=== PATIENT | male | born 1930 | race Caucasian/White ===

== ENCOUNTER 2017-06-10 09:34 | Emergency (ER) | payer OTHER ==
--- NOTE | 2017-06-10 09:50 | PDOC ---
History of Present Illness - General Chief Complaint: Wound Stated Complaint: BLEEDING FROM SCROTU Time Seen by Provider: 06/10/17 09:48 History Source: Patient - History of Present Illness Initial Comments: 06/10/17 11:34 CC: Acute onset of scrotal lesion/bleed Patient is an 86 y.o. male with a PMH of CAD, CVA (with residual weakness) and AFib (on Dagbigitran) who presents to our facility today c/o bleeding from a lesion on his scrotum. Patient states he noticed the bleeding when he woke up this morning and he tried to apply pressure using a hand towel, however he continued to bleed prompting his visit to our ED. Patient states he believes he scratched his scrotum earlier this week on the bedpost when getting out of bed in the middle of the night. Patient states he was evaluated by his PCP for a similar bleed earlier this year and also experienced excessive bleeding from his R arm following an injury last month. Patient denies any shortness of breath, lightheadedness or chest pain. Surgical: L hip replacement, Hernia repair Social: (-) cigarettes, (-) alcohol, (-) marijuana/cocaine/heroin PCP: Dr Christ LEYVA Past History - Past Medical History Allergies/Adverse Reactions: Allergies Allergy/AdvReac Type Severity Reaction Status Date / Time No Known Allergies Allergy Verified 06/10/17 09:35 Home Medications: Ambulatory Orders Calcium Carbonate [Calcium] 500 mg PO BID tablet 11/06/14 Multivitamin [Daily Vitamin] 1 each PO DAILY tablet 11/06/14 Metolazone 2.5 mg PO PRN tablet 11/14/16 Carvedilol [Coreg] 3.125 mg PO BID tablet 04/26/17 [place]-3/Dha/Epa/Lut/Zeaxanthin [[facility] Softgel] 1 each PO 2 CAPS BID capsule 04/26/17 Anemia: No Asthma: No Cancer: Yes (Skin) Cardiac Disorders: Yes (atrial fibrillation) CVA: Yes ([id number] weakness) COPD: No CHF: Yes Dementia: No Diabetes: No GI Disorders: No Disorders: No HTN: No Hypercholesterolemia: Yes Liver Disease: No Seizures: No Thyroid Disease: Yes - Surgical History Abdominal Surgery: Yes (Colon Resection) Appendectomy: No Cardiac Surgery: No Cholecystectomy: No GI Surgery: Yes (large intestine) Lung Surgery: Yes (Thorocentesis 10/2014) Neurologic Surgery: No Orthopedic Surgery: Yes (MAMIE HIP REPLACEMENT) - Psycho/Social/Smoking Cessation Hx Anxiety: No Suicidal Ideation: No Smoking History: Never smoked Have you smoked in the past 12 months: No Hx Alcohol Use: No Drug/Substance Use Hx: No Substance Use Type: None Hx Substance Use Treatment: No Review of Systems - Review of Systems Constitutional: No: Chills, Diaphoresis HEENTM: No: Blurred Vision, Hearing Loss Respiratory: No: Orthopnea, Shortness of Breath, Stridor, Wheezing, Hemoptysis Cardiac (ROS): No: Chest Pain, Edema, Irregular Heart Rate, Lightheadedness, Palpitations, Syncope ABD/GI: No: Constipated, Nausea, Vomiting, Abdominal cramping : No: Burning, Dysuria Psychiatric: No: Anxiety, Depression All Other Systems: Reviewed and Negative *Physical Exam - Vital Signs Last Vital Signs Temp Pulse Resp BP Pulse Ox 97.8 F 18 0/0 06/10/17 09:35 06/10/17 09:35 06/10/17 09:35 - Physical Exam General Appearance: Yes: Nourished, Appropriately Dressed HEENT: positive: EOMI, ZAID Neck: positive: Trachea midline, Supple Respiratory/Chest: positive: Lungs Clear, Normal Breath Sounds Cardiovascular: positive: Regular Rhythm, Regular Rate, S1, S2 Gastrointestinal/Abdominal: positive: Normal Bowel Sounds, Soft Male Genitalia: positive: other (pinpoint active scrotal bleed on L scrotum) Musculoskeletal: positive: Normal Inspection Extremity: positive: Normal Capillary Refill, Normal Inspection Neurologic: positive: product development specialist II-XII NML intact, Fully Oriented, Alert Medical Decision Making - Medical Decision Making 06/10/17 11:42 Patient is an 86 y.o. male who presents with active bleeding from a pinpoint lesion on his scrotum. At presentation patient was hemodynamically stable and denied any SiSx of acute blood loss including shortness of breath, tachycardia or lightheadedness. Pressure was applied to patient's scrotum and bleeding generally resolved, surgicel was applied to the wound and patient was given instructions that surgicel would likely fall off during the course of his normal activity. Patient was given his a.m. dose of Dagbigitran and observed for 45 minutes without any resumption of active bleeding from the lesion. Patient was discharged home with instruction to f/u with his PCP, Dr. Polo, next week. *DC/Admit/Observation/Transfer Diagnosis at time of Disposition: Scrotal blister - Discharge Dispostion Disposition: HOME Condition at time of disposition: Fair - Patient Instructions Additional Instructions: You were evaluated in the Emergency Department today for a pinpoint bleed from your scrotum. Surgicel was applied and your bleeding resolved. You can bathe and return to normal activities. Please return to the ED should you experience repeat bleeding, chest pain, shortness of breath or severe discomfort. Please see your PCP next week and inform them of your visit to our facility.
[2017-06-10 09:51] VITALS: TEMP 97.8; BMI 25.0
[2017-06-10 09:55] VITALS: BP 139/77; PULSE 98
[2017-06-10] MEDS ORDERED: DABIGATRAN ETEXILATE MESYLATE 150 MG CAPSULE PO ONE (10:32)
--- NOTE | 2017-06-10 10:45 | PDOC ---
Attending Attestation - Resident Resident Name: Joy Ram - ED Attending Attestation I have performed the following: I have examined & evaluated the patient, The case was reviewed & discussed with the resident, I agree w/resident's findings & plan, Exceptions are as noted - HPI HPI: 06/10/17 10:36 86-year-old male with past medical history of congestive heart failure, stroke, atrial fibrillation on pradaxa presents with left scrotal bleeding. Patient had actually scratched his left testicle and had a pinpoint bleed but couldn't control so came to the ED. Denies any lightheadedness, chest tightness or shortness of breath. He has been applying pressure and came to the ED. - Physicial Exam PE: 06/10/17 10:45 GENERAL: Awake, alert, and fully oriented, in no acute distress. HEAD: No signs of trauma EYES: PERRLA, EOMI, sclera anicteric, conjunctiva clear ENT: Auricles normal inspection, hearing grossly normal, nares patent, oropharynx clear without exudates. NECK: Normal ROM, supple, no lymphadenopathy, JVD, or masses LUNGS: Breath sounds equal, clear to auscultation bilaterally. No wheezes, and no crackles HEART: Regular rate and rhythm, normal S1 and S2, no murmurs, rubs or gallops ABDOMEN: Soft, nontender, normoactive bowel sounds. No guarding, no rebound. No masses : No scrotal tenderness. No active bleeding at this time (after pressure applied by patient and by resident DR. Joy Ram). EXTREMITIES: Normal range of motion, no edema. No clubbing or cyanosis. No cords, erythema, or tenderness NEUROLOGICAL: Cranial nerves II through XII grossly intact. Normal speech, normal gait SKIN: Warm, Dry, normal turgor, no rashes or lesions noted. - Medical Decision Making 06/10/17 10:53 Vital Signs Temp Pulse Resp BP Pulse Ox 97.8 F 98 H 18 139/77 100 06/10/17 09:35 06/10/17 09:35 06/10/17 09:35 06/10/17 09:35 06/10/17 09:35 Patient is not bleeding. We'll apply Surgicel and gauze and watch the patient. We will give the patient's Pradaxa and observe, whicht he should continue given his history of atrial fibrillation. We'll observe and if bleeding stops, we'll discharge home with PMD follow-up. 06/10/17 11:33 PT has been observed and no further bleeding noted. Will d/c
== END 2017-06-10 11:34 | disposition home or self-care (01) ==
LOC: FER 09:34
DX: S30.823A Blister (nonthermal) of scrotum and testes, initial encounter (principal); X58.XXXA Exposure to other specified factors, initial encounter; Y93.9 Activity, unspecified; I50.9 Heart failure, unspecified; Z86.73 Personal history of transient ischemic attack (TIA), and cerebral infarction without residual deficits; Z85.828 Personal history of other malignant neoplasm of skin; E78.00 Pure hypercholesterolemia, unspecified; Z96.643 Presence of artificial hip joint, bilateral; I48.91 Unspecified atrial fibrillation
CPT/HCPCS: 99282-25

== ENCOUNTER 2017-08-31 21:50 | Inpatient (IN) | payer OTHER ==
--- NOTE | 2017-08-31 21:59 | PDOC ---
History of Present Illness - General Chief Complaint: Weakness Stated Complaint: WEAKNESS, FELL, SOB Time Seen by Provider: 08/31/17 21:59 - History of Present Illness Initial Comments: 08/31/17 22:51 This 86-year-old man with a history of CHF/HTN/ Afib presents with several day history of progressive weakness and dyspnea on exertion. Patient states that he fell (lost his balance) 5 days ago, striking right hip area. Since then, he has had some pain in the local area radiating to his lower back. He has been able to ambulate with some difficulty using a walker since the injury. However , he has noted fatigue, cough (occasionally productive of scant sputum) and shortness of breath with exertion. There has been no fever/chills, chest pain, palpitations. The patient monitors his weight and has noted an increase of "a few pounds" over the last few days. He denies dyspnea at rest. He also has had increase lower leg edema (right greater than left which is the usual pattern when he has ankle edema). He states that he has not been taking Zaroxolyn/ Lasix as prescribed over the last few days because he had things to do outside and he did not want to have increased urination while not at home. He has been started on iron supplementation in the last week by Dr. Polo after being noted to be anemic. Also, patient was treated for bronchitis approximately a month ago with Augmentin followed by azithromycin Z-Davey Past History - Past Medical History Allergies/Adverse Reactions: Allergies Allergy/AdvReac Type Severity Reaction Status Date / Time No Known Allergies Allergy Verified 06/10/17 09:35 Home Medications: Ambulatory Orders Calcium Carbonate [Calcium] 500 mg PO BID tablet 11/06/14 Multivitamin [Daily Vitamin] 1 each PO DAILY tablet 11/06/14 Metolazone 2.5 mg PO PRN tablet 11/14/16 Carvedilol [Coreg] 3.125 mg PO BID tablet 04/26/17 [place]-3/Dha/Epa/Lut/Zeaxanthin [[facility] Softgel] 1 each PO 2 CAPS BID capsule 04/26/17 Ferrous Sulfate 325 mg PO DAILY 08/31/17 Anemia: No Asthma: No Cancer: Yes (Skin) Cardiac Disorders: Yes (atrial fibrillation) CVA: Yes ([id number] weakness) COPD: No CHF: Yes Dementia: No Diabetes: No GI Disorders: No Disorders: No HTN: No Hypercholesterolemia: Yes Liver Disease: No Seizures: No Thyroid Disease: Yes - Surgical History Abdominal Surgery: Yes (Colon Resection) Appendectomy: No Cardiac Surgery: No Cholecystectomy: No GI Surgery: Yes (large intestine) Lung Surgery: Yes (Thorocentesis 10/2014) Neurologic Surgery: No Orthopedic Surgery: Yes (MAMIE HIP REPLACEMENT) - Suicide/Smoking/Psychosocial Hx Smoking History: Never smoked Have you smoked in the past 12 months: No Hx Alcohol Use: No Drug/Substance Use Hx: No Substance Use Type: None Hx Substance Use Treatment: No Review of Systems - Review of Systems Able to Perform ROS?: Yes Comments:: 12 point review of systems is negative except for what is noted in the history of present illness *Physical Exam - Physical Exam Comments: GENERAL: Elderly man, speaking in full sentences, in mild respiratory distress Vital signs as noted HEAD: Normal with no signs of trauma. EYES: PERRLA, EOMI, sclera anicteric, conjunctiva clear. ENT: Ears normal, nares patent, oropharynx clear without exudates. Moist mucous membranes. NECK: Normal range of motion, supple without lymphadenopathy, JVD, or masses. LUNGS: Decreased breath sounds at right base; expiratory crackles bilaterally third of the way up; no wheezes; no rhonchi HEART:Regular rate and rhythm, normal S1 and S2 without murmur, rub or gallop. ABDOMEN:.normal bowel sounds No guarding,tenderness or rebound.No masses No distention. EXTREMITIES: Normal range of motion, 2+ pitting edema to knee on right/1+ pitting edema to knee on the left; 3 cm x 8 cm ecchymotic, nontender, nonedematous area of the proximal right thigh; full range of motion right hip No tenderness of the anterior right hip NEUROLOGICAL: Cranial nerves II through XII grossly intact. Normal speech. No focal neurological deficits. MUSCULOSKELETAL: Back non-tender to palpation, no CVA tenderness SKIN: Warm, Dry, normal turgor, no rashes or lesions noted. 12-lead electrocardiogram is performed and interpreted by me. This shows atrial fibrillation 106 bpm; there is some widening of the QRS complex as compared to previous tracing dated 12/31/14, otherwise there is no significant change Portable chest x-ray performed: Preliminary interpretation shows small right- sided pleural effusion unchanged from previous chest x-ray of 08/10/17. No other pleural effusion noted. Increased vascular markings bilaterally without infiltrates evident. ED Treatment Course - LABORATORY CBC & Chemistry Diagram: 08/31/17 22:35 08/31/17 22:35 *DC/Admit/Observation/Transfer Diagnosis at time of Disposition: CHF (congestive heart failure) Qualifiers: Congestive heart failure type: systolic Congestive heart failure chronicity: acute on chronic Qualified Code(s): I50.23 - Acute on chronic systolic ( congestive) heart failure - Discharge Dispostion Condition at time of disposition: Fair Admit: Yes - Referrals - Patient Instructions - Post Discharge Activity
[2017-08-31 22:44] LABS: BASOPHIL 1.7 % (0-2.0); EOSINOPHIL 0.4 % (0-4.5); MCH 30.3 pg (25.7-33.7); MCHC 32.5 g/dl (32.0-35.9); MEAN CELL VOLUME 93.2 fl (80-96); MEAN PLT VOLUME 8.1 fl (7.5-11.1); NEUTROPHILS 87.1 % (42.8-82.8); PLATELET COUNT 178 K/MM3 (134-434); RDW 20.9 % (11.9-15.9); WHITE BLOOD COUNT 8.5 K/mm3 (4.0-10.8)
[2017-08-31 22:53] LABS: INR 2.88 (0.82-1.09); PROTHROMBIN TIME (PATIENT) 31.6 SEC (10.2-13.0)
[2017-08-31 23:08] LABS: ALK PHOS 67 U/L (32-92); ANION GAP 8 (8-16); BILIRUBIN,TOTAL 1.7 mg/dl (0.2-1.0); CO2 32 mmol/L (22-28); CPK 296 IU/L (39-308); GLUCOSE,RANDOM 117 mg/dl (74-106); SGOT/AST 64 U/L (10-42); SGPT/ALT 27 U/L (10-40)
[2017-08-31 23:29] LABS: TROPONIN I (DFP) 0.05 ng/ml (0.03-0.50)
[2017-08-31] MEDS ORDERED: FUROSEMIDE 40 MG/4 ML INJECTABLE VIAL IVPUSH ONE (23:54)
[2017-08-31] MEDS ORDERED: FUROSEMIDE 40 MG/4 ML INJECTABLE VIAL ONE (23:55)
[2017-09-01] LABS: ALBUMIN 3.8 g/dl (3.5-5.0); CREATININE 1.7 mg/dl (0.6-1.3); TOT PROT 7.5 g/dl (6.4-8.3)
[2017-09-01] MEDS ORDERED: ACETAMINOPHEN 325 MG TABLET (FP) PO PRN (00:39)
--- NOTE | 2017-09-01 00:39 | HP ---
CHIEF COMPLAINT: weakness and decreased exercise tolerance PCP: Christ Quezada: Lisette HISTORY OF PRESENT ILLNESS: This is an 86-year-old man with past medical history of A. fib, hypertension, CHF who presents to the emergency department with 2 weeks of generalized weakness and decreased exercise tolerance. Patient states that he started feeling generally fatigued with generalized weakness and dry cough approximately 2 weeks ago. He saw his primary doctor who has treated him for bronchitis with both Augmentin and a Z-Davey. Symptoms did not resolve. The patient states she has not been taking his Lasix or Zaroxolyn for the past week due to the fact that he has had many errands to run and did not want to have to void well in public. He states he is only able to walk approximately 20 feet before becoming increasingly short of breath. Patient is unable to walk up inclines or upstairs. Patient denies feeling bloated. He denies any fevers, chills, headaches, dizziness, chest pain, abdominal pain. ER course was notable for: (1) A-fib (2) Elevated BNP (3) GILMER (4) Hyponatremia Recent Travel: denies PAST MEDICAL HISTORY: see HPI PAST SURGICAL HISTORY: see HPI Social History: Smoking: denies Alcohol: denies Drugs: denies Family History: Allergies No Known Allergies Allergy (Verified 06/10/17 09:35) HOME MEDICATIONS: Home Medications Medication Instructions Recorded Calcium Carbonate [Calcium] 500 mg PO BID tablet 11/06/14 Multivitamin [Daily Vitamin] 1 each PO DAILY tablet 11/06/14 Metolazone 2.5 mg PO PRN tablet 11/14/16 Carvedilol [Coreg] 3.125 mg PO BID tablet 04/26/17 [place]-3/Dha/Epa/Lut/Zeaxanthin 1 each PO 2 CAPS BID capsule 04/26/17 [[facility] Softgel] Ferrous Sulfate 325 mg PO DAILY 08/31/17 REVIEW OF SYSTEMS CONSTITUTIONAL: Present- generalized weakness Absent: fever, chills, diaphoresis, malaise, loss of appetite, weight change HEENT: Absent: rhinorrhea, nasal congestion, throat pain, throat swelling, difficulty swallowing, mouth swelling, ear pain, eye pain, visual changes CARDIOVASCULAR: Present- irregular heart rate Absent: chest pain, syncope, palpitations, lightheadedness, peripheral edema RESPIRATORY: Present- dyspnea with exertion, PND, orthopnea Absent: cough, shortness of breath, wheezing, stridor, hemoptysis GASTROINTESTINAL: Absent: abdominal pain, abdominal distension, nausea, vomiting, diarrhea, constipation, melena, hematochezia GENITOURINARY: Absent: dysuria, frequency, urgency, hesitancy, hematuria, flank pain, genital pain MUSCULOSKELETAL: Absent: myalgia, arthralgia, joint swelling, back pain, neck pain SKIN: Absent: rash, itching, pallor HEMATOLOGIC/IMMUNOLOGIC: Absent: easy bleeding, easy bruising, lymphadenopathy, frequent infections ENDOCRINE: Absent: unexplained weight gain, unexplained weight loss, heat intolerance, cold intolerance NEUROLOGIC: Absent: headache, focal weakness or paresthesias, dizziness, unsteady gait, seizure, mental status changes, bladder or bowel incontinence PSYCHIATRIC: Absent: anxiety, depression, suicidal or homicidal ideation, hallucinations. PHYSICAL EXAMINATION Vital Signs - 24 hr 08/31/17 08/31/17 21:57 22:50 Temperature 98.0 F Pulse Rate 135 H Pulse Rate [ 108 H Apical] Respiratory 26 H 22 Rate Blood Pressure 125/65 Blood Pressure 104/64 [Arm] O2 Sat by Pulse 95 99 Oximetry (%) GENERAL: Awake, alert, and fully oriented, in no acute distress. HEAD: Normal with no signs of trauma. EYES: Pupils equal, round and reactive to light, extraocular movements intact, sclera anicteric, conjunctiva clear. No lid lag. EARS, NOSE, THROAT: Ears normal, nares patent, oropharynx clear without exudates. Moist mucous membranes. NECK: Normal range of motion, supple without lymphadenopathy, or masses. 10cm JVD. LUNGS: Breath sounds equal, clear to auscultation bilaterally. No wheezes. Bibasilar crackles. No accessory muscle use. HEART: Irregular rate and rhythm, normal S1 and S2 without murmur, rub or gallop. ABDOMEN: Soft, nontender, mildly distended, normoactive bowel sounds, no guarding, no rebound, no masses. No hepatomegaly or splenomegaly. MUSCULOSKELETAL: Normal range of motion at all joints. No bony deformities or tenderness. No CVA tenderness. SHIELDS x4 with 5/5 strength. UPPER EXTREMITIES: 2+ pulses, warm, well-perfused. No cyanosis. No clubbing. +2 peripheral edema with right>left. LOWER EXTREMITIES: 2+ pulses, warm, well-perfused. No calf tenderness. +2 peripheral edema with right>left. NEUROLOGICAL: Cranial nerves II-XII intact. Normal speech. Normal gait. PSYCHIATRIC: Cooperative. Good eye contact. Appropriate mood and affect. SKIN: Warm, dry, normal turgor, no rashes or lesions noted, normal capillary refill. Laboratory Results - last 24 hr 08/31/17 08/31/17 08/31/17 22:35 22:35 22:35 WBC 8.5 RBC 2.87 L Hgb 8.7 L Hct 26.7 L MCV 93.2 MCH 30.3 MCHC 32.5 RDW 20.9 H D Plt Count 178 MPV 8.1 Neutrophils % 87.1 H D Lymphocytes % 5.9 L D Monocytes % 4.9 Eosinophils % 0.4 Basophils % 1.7 PT with INR 31.6 H INR 2.88 H D Sodium 132 L Potassium 4.4 Chloride 92 L Carbon Dioxide 32 H Anion Gap 8 BUN 48 H D Creatinine 1.7 H D Creat Clearance w eGFR 38.41 Random Glucose 117 H D Calcium 9.0 Total Bilirubin 1.7 H D AST 64 H D ALT 27 D Alkaline Phosphatase 67 Creatine Kinase 296 Creatine Kinase Index 1.1 CK-MB (CK-2) 3.288 Troponin I Cancelled B-Natriuretic Peptide Total Protein 7.5 Albumin 3.8 08/31/17 22:35 WBC RBC Hgb Hct MCV MCH MCHC RDW Plt Count MPV Neutrophils % Lymphocytes % Monocytes % Eosinophils % Basophils % PT with INR INR Sodium Potassium Chloride Carbon Dioxide Anion Gap BUN Creatinine Creat Clearance w eGFR Random Glucose Calcium Total Bilirubin AST ALT Alkaline Phosphatase Creatine Kinase Creatine Kinase Index CK-MB (CK-2) Troponin I B-Natriuretic Peptide 1755.05 H Total Protein Albumin ASSESSMENT/PLAN: A: 86yo man with questionable compliance with medications who has had decreased exercise tolerance for 2 weeks P: CHF - Lasix 80mg po qAM and 60mg qPM - monitor K+ and kidney function - daily weights - Strict I&O's - Change Metolazone to standing - tele - consider echo- last in computer was 11/20/14 - Cards Consult Afib - Chads2 score- 3 - Coreg - Pradaxa - tele HTN - Coreg - Lasix Hyponatremia - trend Na GILMER - trend BUN/Cr Hypothyroidism - Synthroid F/E/N - Low Na diet - trend lytes PPX - pradaxa Dispo- Requires observation of acute medical conditions. Visit type - Emergency Visit Emergency Visit: Yes ED Registration Date: 09/01/17 Care time: The patient presented to the Emergency Department on the above date and was hospitalized for further evaluation of their emergent condition. - New Patient This patient is new to me today: Yes Date on this admission: 09/01/17 - Critical Care Critical Care patient: No
[2017-09-01] MEDS ORDERED: [UNRECOGNIZED DRUG - OTHER] PO SCH (00:45)
[2017-09-01] MEDS ORDERED: EPA PO SCH (00:45)
[2017-09-01] MEDS ORDERED: DHA PO SCH (00:45)
[2017-09-01] MEDS ORDERED: ZEAXANTHIN PO SCH (00:45)
[2017-09-01] MEDS ORDERED: LUT PO SCH (00:45)
[2017-09-01] MEDS ORDERED: OMEGA PO SCH (00:45)
[2017-09-01] MEDS: FUROSEMIDE 40 MG TABLET (FP) PO SCH ×2 (00:55→09:29)
[2017-09-01 03:15] VITALS: BMI 25.1
[2017-09-01] MEDS: LEVOTHYROXINE NA 100 MCG TABLET (FP) PO SCH (06:36)
[2017-09-01 08:25] LABS: PH,URINE 7.5 (4.5-8); URINE APPEARANCE Clear; URINE BILIRUBIN Negative (NEGATIVE); URINE GLUCOSE (UA) Negative (NEGATIVE); URINE KETONE Negative (NEGATIVE); URINE LEUK ESTERASE Negative (NEGATIVE); URINE NITRITE Negative (NEGATIVE); URINE PROTEIN Negative (NEGATIVE); URINE UROBILINOGEN 0.2 (0.2-1.0)
[2017-09-01 08:29] LABS: URINE BLOOD 1+ (NEGATIVE); URINE COLOR YELLOW
[2017-09-01 08:39] LABS: INR 2.68 (0.82-1.09); PROTHROMBIN TIME (PATIENT) 29.4 SEC (10.2-13.0)
[2017-09-01 09:02] LABS: BASOPHIL 0.3 % (0-2.0); EOSINOPHIL 0.4 % (0-4.5); MCH 30.1 pg (25.7-33.7); MCHC 31.8 g/dl (32.0-35.9); MEAN CELL VOLUME 94.9 fl (80-96); MEAN PLT VOLUME 8.9 fl (7.5-11.1); NEUTROPHILS 87.1 % (42.8-82.8); PLATELET COUNT 152 K/MM3 (134-434); RDW 20.9 % (11.9-15.9); WHITE BLOOD COUNT 7.3 K/mm3 (4.0-10.8)
[2017-09-01 09:03] LABS: URINE BACTERIA MODERATE /hpf (NEGATIVE); URINE WBC 0-3 (0-2)
[2017-09-01] MEDS ORDERED: PT OWN MED DRAWER 7, Y5N ONE (09:10)
[2017-09-01 09:29] LABS: ALBUMIN 3.2 g/dl (3.5-5.0); ALK PHOS 66 U/L (32-92); ANION GAP 10 (8-16); BILIRUBIN,TOTAL 1.6 mg/dl (0.2-1.0); CALCIUM 8.3 mg/dl (8.4-10.2); CO2 30 mmol/L (22-28); CREATININE 1.5 mg/dl (0.6-1.3); GLUCOSE,RANDOM 98 mg/dl (74-106); SGOT/AST 58 U/L (10-42); SGPT/ALT 23 U/L (10-40); TOT PROT 6.5 g/dl (6.4-8.3)
[2017-09-01] MEDS: DABIGATRAN ETEXILATE MESYLATE 150 MG CAPSULE PO SCH ×2 (09:29→21:40)
[2017-09-01] MEDS: CARVEDILOL 3.125 MG TABLET (FP) PO SCH ×2 (09:29→21:40)
[2017-09-01] MEDS: CALCIUM (OYSTER SHELL) 500 MG TABLET (FP) PO SCH ×2 (09:29→21:40)
[2017-09-01] MEDS: FERROUS SO4 325 MG TABLET (FP) PO SCH (09:29)
[2017-09-01] MEDS: MULTIVITAMINS (DAILY MVI) TABLET (FP) PO SCH (09:29)
[2017-09-01] MEDS ORDERED: METOLAZONE 2.5 MG TABLET (FP) PO SCH (09:30)
--- NOTE | 2017-09-01 12:59 | EKG ---
Test Reason : Blood Pressure : / mmHG Vent. Rate : 106 BPM Atrial Rate : 144 BPM P-R Int : 000 ms QRS Dur : 132 ms QT Int : 354 ms P-R-T Axes : 000 -14 -55 degrees QTc Int : 470 ms ATRIAL FIBRILLATION WITH RAPID VENTRICULAR RESPONSE RIGHT BUNDLE BRANCH BLOCK NONSPECIFIC ST AND T WAVE ABNORMALITY in leads II, III, aVF ABNORMAL ECG WHEN COMPARED WITH ECG OF 19-NOV-2014 17:43, RIGHT BUNDLE BRANCH BLOCK is now present ST depression and T wave inversion is noted in V3-5 Confirmed by JABIER COX MD ([id number]) on 09/01/2017 12:59:20 PM Referred By: DR HERNANDEZ Confirmed By:JABIER COX MD
--- NOTE | 2017-09-01 13:24 | CONSULT ---
Consult - text type - Consultation Consultation Note: CARDIOLOGY ASKED BY DR. Hyatt TO SEE PT. 86 YO MAN 09/01/17 WEAKNESS/FATIGUE. PT SEEN, EXAMINED. X RAYS, ECG ECHOCARDIOGRAM, PRIOR RECORDS REVIEWED. WORKING DX: GENERALIZED FATIGUE /WEAKNESS DUE TO AGING, HIP PAIN, RECENT UPPER RESPIRATORY INFECTION. . DOUBT ACUTE CHF. CHRONIC RIGHT PLEURAL EFFUSION, PROBABLY TRANSUDATIVE. NO SIGNIFICANT EDEMA WEIGHT NOT SIGNIFICANTLY INCREASED AND CHEST X RAY NOT IMPRESSIVE FOR PULMONARY VENOUS CONGESTION LOW NORMAL LEFT VENTRICULAR SYSTOLIC FUNCTION EJECTION FRACTION 50% ECHOCARDIOGRAM 57 % 10/22 GATED SESTA MIBI STUDY. NO EVIDENCE OF AN ACUTE MYOCARDIAL INFARCTION/ISCHEMIA. REC: OK TO DISCONTINUE TELEMETRY. REHAB/PHYSICAL THERAPY. CONTINUE ORAL DIURETICS. NO FURTHER CARDIAC TESTING REQUIRED AT THIS TIME. CARDIOLOGY OUT PATIENT FOLLOW UP DIRECTED BY IM. THANKS. FULL NOTE DICTATED. FAMILY KEPT INFORMED. WILL FOLLOW
--- NOTE | 2017-09-01 14:52 | CONS ---
DATE OF CONSULTATION: 09/01/2017 CARDIOLOGY CONSULTATION REQUESTING PHYSICIAN: PATIENT PROFILE: The patient is an 86-year-old man admitted on September 01, 2017, because of weakness, fatigue and inability to walk. HISTORY OF PRESENT ILLNESS: The patient has a prior history of chronic atrial fibrillation, right greater than left-sided congestive heart failure and a right pleural effusion. There is history of a myocardial infarction. He has undergone coronary arteriographic studies in the past. The angiographic reports are not presently available. A Lexiscan sestamibi in October 2013 showed normal perfusion. Left ventricular ejection fraction was 59%. A October 2016 echocardiogram showed a left ventricular ejection fraction of 50%, with calcification of the mitral valve annulus and mild mitral insufficiency. Mild aortic insufficiency was also noted. He has known severe pulmonary hypertension, with a pulmonary artery systolic pressure of 56 mmHg, and right ventricular hypokinesis and enlargement. The right atrium was massively enlarged, and the left atrium was severely enlarged at 5.7 cm. He previously had undergone a right thoracentesis about 7 years ago. 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 He has had increasing difficulty walking and is admitted now with complaints of profound weakness and inability to walk. He had recently been treated for an upper respiratory infection with antibiotics through Dr. Polo. On presentation, he was thought to have congestive heart failure and a cardiology consultation was requested. The patient presently denies any symptoms of chest pain, shortness of breath, or orthopnea. Ankle edema is minimal. MEDICATIONS: The present medications include Lipitor 10 mg per day, carvedilol 3.125 mg b.i.d., Pradaxa 150 mg b.i.d., iron supplement, Lasix 80/60 mg, Synthroid 100 mcg per day, Zaroxolyn 2.5 mg per day, vitamin supplementation. PAST MEDICAL HISTORY: Atrial fibrillation, CVA, hyperlipidemia, chronic lower extremity edema, pericarditis, gastroesophageal reflux, prostatic hypertrophy, osteoarthritis, macular degeneration, rectal bleeding, duodenal ulcer in September 2016, skin cancer. PAST SURGICAL HISTORY: Subtotal colectomy for volvulus, total hip replacement, prostatectomy and vasectomy in 1979, hernia repair, cataract extractions. SOCIAL HISTORY: He lives at home with his . There is no history of smoking or alcohol abuse. REVIEW OF SYSTEMS: General: No fever or chills. Pulmonary: No hemoptysis. Neurological: Gait disorder. Hematological: Chronic anemia. PHYSICAL EXAMINATION: General: The patient appears awake and alert, in no distress. Vitals: The weight is 168 pounds. The blood pressure is 128/60. Temperature afebrile. Pulse is 90. Respiratory rate is 19 per minute. Neck: There is no neck vein distention at 90 degrees. Respiratory: There are marked decreased breath sounds at the right base with dullness to percussion. There are no rales. There is no wheezing. Cardiac: The heart sounds are normal, although irregular. There is a 2/6 systolic murmur at the left sternal border, best heard with breath holding. The heart sounds are irregular. No diastolic sounds. No gallop is audible. Extremities: There is trace edema to the left lower extremity. There is no significant edema on the right. The feet are warm and well perfused. Neurologic: There is no focal neurological deficit. DATABASE: The electrocardiogram demonstrates atrial fibrillation with a rapid ventricular response, low voltage limb leads, intraventricular conduction delay, nonspecific ST and T-wave changes, right bundle branch block. The chest x-ray was reviewed. It is an AP portable film. The heart size cannot be accurately assessed due to the technique of the film. There is a right pleural effusion. There is no distinct infiltrate. There is no gross pulmonary venous congestion. Laboratory studies of note include a white blood cell count of 7.3, hematocrit 24%; platelet count 152,000. INR 2.6. Serum sodium 135, BUN 42, creatinine 1.5. BNP level 1755. Urinalysis shows 1+ blood, negative glucose, negative protein. IMPRESSION: The working diagnosis is generalized fatigue, weakness secondary to a combination of aging, anemia and recent upper respiratory infection. I doubt the presence of acute congestive heart failure. The right pleural effusion, by physical examination and chest x-ray, is chronic and does not appear to be severe. I suspect it is transudative in nature. There is no significant edema. The weight is not significantly increased and the chest x-ray is not impressive for pulmonary venous congestion. Left ventricular systolic function is low normal, as reflected by a left ventricular ejection fraction of 50% on the October 2016 echocardiogram and 57% on the October 2013 gated sestamibi study. There is no evidence to suggest an acute myocardial ischemic event. Of concern is the significant anemia with hematocrit of 24% and elevation of the INR level in the absence of the administration of vitamin K antagonist therapy. The coagulopathy with increased INR and administration of Pradaxa will increase the risk of bleeding. RECOMMENDATIONS: I have recommended the followin. It is safe to discontinue telemetry. 2. Rehabilitation and physical therapy. 3. Continue oral diuretics. 4. No further cardiac testing is required at this time. 5. Hematological evaluation with regards to the anemia. 6. Discontinue Pradaxa. 7. Cardiology outpatient follow-up and workup and therapy as directed by Internal Medicine. The diagnoses, prognosis, risks and options were explained at length to the patient and family, and all questions answered. Thank you for allowing me to take part in the care of this pleasant patient. VELMA SONG M.D. LOUSIA/[id number] cc: MD Dr. Rony CALDERA MD
--- NOTE | 2017-09-01 21:41 | PN ---
Physical Exam: SUBJECTIVE: Patient seen and examined at bedside. Still experiencing generalized weakness and lightheadedness with positional change. Patient describes a fall 6 days ago when getting out of bed at night to go to the bathroom. He states he lost his balance and fell to the floor. His helped him up and he went back to bed, he was not on the floor for a prolonged period of time. He did not hit his head, denies LOC. He did not seek medical attention. Patient reports his generalized weakness and SOB have gotten worse since the fall. OBJECTIVE: Vital Signs Period Temp Pulse Resp BP Sys/Servin Pulse Ox Last 24 Hr 97.5 F-98.2 F 61-135 17-26 91-128/49-70 95-100 GENERAL: The patient is awake, alert, and fully oriented, in no acute distress. LUNGS: CTA HEART: Irregular, S1, S2 without murmur, rub or gallop. ABDOMEN: Soft, nontender, nondistended, normoactive bowel sounds, no guarding, no rebound EXTREMITIES: 2+ pulses, warm, well-perfused, no edema. NEUROLOGICAL: Cranial nerves II through XII grossly intact. Normal speech, gait not observed. PSYCH: Normal mood, normal affect. MUSCULOSKELETAL/SKIN: Very large area of ecchymosis, extending from right upper back under the scapula, down the right flank, across the lower abdomen, and into the penis Laboratory Results - last 24 hr 08/31/17 08/31/17 08/31/17 22:35 22:35 22:35 WBC 8.5 RBC 2.87 L Hgb 8.7 L Hct 26.7 L MCV 93.2 MCH 30.3 MCHC 32.5 RDW 20.9 H D Plt Count 178 MPV 8.1 Neutrophils % 87.1 H D Lymphocytes % 5.9 L D Monocytes % 4.9 Eosinophils % 0.4 Basophils % 1.7 PT with INR 31.6 H INR 2.88 H D Sodium 132 L Potassium 4.4 Chloride 92 L Carbon Dioxide 32 H Anion Gap 8 BUN 48 H D Creatinine 1.7 H D Creat Clearance w eGFR 38.41 Random Glucose 117 H D Calcium 9.0 Total Bilirubin 1.7 H D AST 64 H D ALT 27 D Alkaline Phosphatase 67 Creatine Kinase 296 Creatine Kinase Index 1.1 CK-MB (CK-2) 3.288 Troponin I Cancelled B-Natriuretic Peptide Total Protein 7.5 Albumin 3.8 Urine Color Urine Appearance Urine pH Ur Specific [place] Urine Protein Urine Glucose (UA) Urine Ketones Urine Blood Urine Nitrite Urine Bilirubin Urine Urobilinogen Ur Leukocyte Esterase Urine RBC Urine WBC Ur Epithelial Cells Urine Bacteria 08/31/17 09/01/17 09/01/17 22:35 06:20 07:15 WBC 7.3 RBC 2.62 L Hgb 7.9 L Hct 24.8 L MCV 94.9 MCH 30.1 MCHC 31.8 L RDW 20.9 H Plt Count 152 MPV 8.9 Neutrophils % 87.1 H Lymphocytes % 7.9 L D Monocytes % 4.3 Eosinophils % 0.4 Basophils % 0.3 PT with INR INR Sodium Potassium Chloride Carbon Dioxide Anion Gap BUN Creatinine Creat Clearance w eGFR Random Glucose Calcium Total Bilirubin AST ALT Alkaline Phosphatase Creatine Kinase Creatine Kinase Index CK-MB (CK-2) Troponin I B-Natriuretic Peptide 1755.05 H Total Protein Albumin Urine Color Yellow Urine Appearance Clear Urine pH 7.5 Ur Specific [place] 1.015 Urine Protein Negative Urine Glucose (UA) Negative Urine Ketones Negative Urine Blood 1+ H Urine Nitrite Negative Urine Bilirubin Negative Urine Urobilinogen 0.2 Ur Leukocyte Esterase Negative Urine RBC 5-10 Urine WBC 0-3 Ur Epithelial Cells Few Urine Bacteria Moderate 09/01/17 09/01/17 07:15 07:15 WBC RBC Hgb Hct MCV MCH MCHC RDW Plt Count MPV Neutrophils % Lymphocytes % Monocytes % Eosinophils % Basophils % PT with INR 29.4 H INR 2.68 H Sodium 135 L Potassium 3.4 L D Chloride 95 L Carbon Dioxide 30 H Anion Gap 10 BUN 42 H Creatinine 1.5 H Creat Clearance w eGFR 44.37 Random Glucose 98 Calcium 8.3 L Total Bilirubin 1.6 H AST 58 H ALT 23 Alkaline Phosphatase 66 Creatine Kinase Creatine Kinase Index CK-MB (CK-2) Troponin I B-Natriuretic Peptide Total Protein 6.5 Albumin 3.2 L Urine Color Urine Appearance Urine pH Ur Specific [place] Urine Protein Urine Glucose (UA) Urine Ketones Urine Blood Urine Nitrite Urine Bilirubin Urine Urobilinogen Ur Leukocyte Esterase Urine RBC Urine WBC Ur Epithelial Cells Urine Bacteria Active Medications Generic Name Dose Route Start Last Admin Trade Name Freq PRN Reason Stop Dose Admin Acetaminophen 650 mg 09/01/17 00:39 Tylenol - PO Q4H PRN FEVER OR PAIN Atorvastatin Calcium 10 mg 09/02/17 10:00 Lipitor - PO TuSa@1000 NEIL Calcium Carbonate 500 mg 09/01/17 10:00 09/01/17 21:40 Os-Thomas 500mg - PO 500 mg BID NEIL Administration Carvedilol 3.125 mg 09/01/17 10:00 09/01/17 21:40 Coreg - PO Not Given BID NEIL Dabigatran 150 mg 09/01/17 10:00 09/01/17 21:40 Pradaxa - PO 150 mg BID NEIL Administration Ferrous Sulfate 325 mg 09/01/17 10:00 09/01/17 09:29 Feosol - PO 325 mg DAILY NEIL Administration Furosemide 80 mg 09/01/17 00:45 09/01/17 09:29 Lasix - PO 80 mg DAILY NEIL Administration Furosemide 60 mg 09/01/17 22:00 09/01/17 21:41 Lasix - PO Not Given HS NEIL Levothyroxine Sodium 100 mcg 09/01/17 07:00 09/01/17 06:36 Synthroid - PO 100 mcg AM NEIL Administration Metolazone 2.5 mg 09/01/17 09:30 09/01/17 09:29 Zaroxolyn - PO 2.5 mg DAILY@0930 NEIL Administration Multivitamins/Minerals/Vitamin C 1 tab 09/01/17 10:00 09/01/17 09:29 Tab-A-Vit - PO 1 tab DAILY NEIL Administration ASSESSMENT/PLAN 86 year-old male with a PMH significant for HTN, HLD, afib on [place], biventricular systolic heart failure, severe TR, CVA (2010), right pleural effusion s/p thoracentesis (2014), and hypothyroidism. Ecchymosis s/p fall Symptomatic anemia likely secondary to acute blood loss --large ecchymotic area that extends from right scapula, right flank, across RLQ into penis --CT w/o contrast to assess bleed/size of hematoma pending --baseline Hgb 11; 8.6 on admission, now 7.9 in a low-volume, hemoconcentrated state --type and screen, transfuse 2U PRBC --occult stool ordered Biventricular systolic heart failure Orthostasis --orthostatic, hypotensive, and rising bicarb likely secondary to low volume state/contraction alkalosis --hold diuretics --cardiology following GILMER --Cr 1.7 on admission, now 1.5; baseline 1.1 --hold diuretics --strict I&Os, daily weights Afib on [place] --CHADS score 6, moderate to high risk of stroke; HAS BLED score 9, high risk of bleeding --relative risk of bleeding appears to outweigh relative risk of stroke at the present time, especially in view of symptomatic anemia and supratherapeutic INR of 2.6; hold dag[place]rib[place], no anticoagulation for now --rate well-controlled, continue carvedilol Hypokalemia --repleted Hypertension --presently hypotensive; hold diuretics Hyponatremia, resolved Hypothyroidism --continue levothyroxine F/E/N Fluids: PO intake adequate Electrolytes: replete as indicated Nutrition: low sodium diet DVT prophylaxis: SCDs; hold chemical prophylaxis for now due to bleeding issues Physical therapy evaluation Dispo: converted to inpatient status because of blood loss anemia requiring transfusion and resultant need to hold anticoagulation in this patient with afib and history of CVA; patient requires inpatient care to monitor closely for signs of thromboembolism, worsening anemia, hypotension, and GILMER. Full code. F/E/N - Low Na diet - trend lytes PPX - pradaxa Dispo- Requires observation of acute medical conditions. Visit type - Emergency Visit Emergency Visit: Yes ED Registration Date: 09/01/17 Care time: The patient presented to the Emergency Department on the above date and was hospitalized for further evaluation of their emergent condition. - New Patient This patient is new to me today: Yes Date on this admission: 09/01/17 - Critical Care Critical Care patient: No
[2017-09-01] MEDS ORDERED: FUROSEMIDE 20 MG TABLET (FP) PO SCH (22:00)
[2017-09-02] MEDS: MUPIROCIN 2% TOPICAL OINTMENT 22 GM TUBE TP SCH ×3 (00:06→22:39)
[2017-09-02] MEDS ORDERED: FUROSEMIDE 40 MG/4 ML INJECTABLE VIAL ONE (07:00)
[2017-09-02] MEDS ORDERED: FUROSEMIDE 40 MG/4 ML INJECTABLE VIAL IVPUSH ONE (07:02)
--- NOTE | 2017-09-02 07:02 | HOSP ---
Subjective - Review of Symptoms Events since last encounter: Patient transfused one unit PRBC overnight, just finished. Diffuse wheezing on exam. Will give Lasix IV 40mg x 1. Physical Examination Vital Signs: Vital Signs Temperature 98.4 F 09/02/17 06:37 Pulse Rate 98 H 09/02/17 06:37 Respiratory Rate 18 09/02/17 06:37 Blood Pressure 115/60 09/02/17 06:37 O2 Sat by Pulse Oximetry (%) 98 09/02/17 05:35 Labs: CBC, BMP 09/01/17 07:15 09/01/17 07:15
[2017-09-02] MEDS: LEVOTHYROXINE NA 100 MCG TABLET (FP) PO SCH (07:06)
[2017-09-02 08:27] LABS: BASOPHIL 0.5 % (0-2.0); EOSINOPHIL 2.5 % (0-4.5); MCH 30.4 pg (25.7-33.7); MCHC 32.6 g/dl (32.0-35.9); MEAN CELL VOLUME 93.2 fl (80-96); MEAN PLT VOLUME 8.2 fl (7.5-11.1); NEUTROPHILS 77.7 % (42.8-82.8); PLATELET COUNT 172 K/MM3 (134-434); RDW 20.3 % (11.9-15.9); WHITE BLOOD COUNT 4.8 K/mm3 (4.0-10.8)
[2017-09-02 08:28] LABS: INR 2.18 (0.82-1.09)
[2017-09-02 08:52] LABS: ALBUMIN 3.3 g/dl (3.5-5.0); ALK PHOS 62 U/L (32-92); ANION GAP 10 (8-16); BILIRUBIN,TOTAL 1.7 mg/dl (0.2-1.0); CALCIUM 8.6 mg/dl (8.4-10.2); CO2 32 mmol/L (22-28); CREATININE 1.3 mg/dl (0.6-1.3); GLUCOSE,RANDOM 89 mg/dl (74-106); MAGNESIUM 2.2 mg/dL (1.8-2.4); PHOSPHOROUS 3.6 mg/dl (2.5-4.6); SGOT/AST 47 U/L (10-42); SGPT/ALT 23 U/L (10-40); TOT PROT 6.7 g/dl (6.4-8.3)
[2017-09-02] MEDS ORDERED: POTASSIUM CHLORIDE TABS 20 MEQ TABLET.ER (FP) PO ONE (09:14)
[2017-09-02] MEDS ORDERED: PT OWN MED DRAWER 7, Y5N ONE (09:35)
[2017-09-02] MEDS ORDERED: ATORVASTATIN CA 10 MG TABLET (FP) PO SCH (10:00)
[2017-09-02] MEDS: CALCIUM (OYSTER SHELL) 500 MG TABLET (FP) PO SCH ×2 (10:05→21:44)
[2017-09-02] MEDS: KCL 10 MEQ IVPB 10 MEQ/100 ML INFUS.BAG IVPB SCH ×5 (10:05→19:30)
[2017-09-02] MEDS: FERROUS SO4 325 MG TABLET (FP) PO SCH (10:05)
[2017-09-02] MEDS: CARVEDILOL 3.125 MG TABLET (FP) PO SCH (10:05)
[2017-09-02] MEDS: MULTIVITAMINS (DAILY MVI) TABLET (FP) PO SCH (10:05)
--- NOTE | 2017-09-02 11:07 | PN ---
Physical Exam: SUBJECTIVE: Patient seen and examined. OBJECTIVE: Vital Signs Period Temp Pulse Resp BP Sys/Servin Pulse Ox Last 24 Hr 97.6 F-98.4 F 77-115 17-20 81-115/49-65 95-98 GENERAL: The patient is awake, alert, and fully oriented, in no acute distress. HEAD: Normal with no signs of trauma. EYES: PERRL, extraocular movements intact, sclera anicteric, conjunctiva clear. No ptosis. LUNGS: Breath diminished to right base. No wheezes, no crackles, no accessory muscle use. HEART: Regular rate and rhythm, S1, S2 without murmur, rub or gallop. ABDOMEN: Soft, nontender, mildly distended, normoactive bowel sounds, no guarding, no rebound, no hepatosplenomegaly, no masses. Tympany noted on percussion. Ecchymosis noted to right upper back/flank/RLQ. RECTAL: Prostate smooth and normal sized. Hard stool noted in vault. EXTREMITIES: 2+ pulses, warm, well-perfused, +2 pedal edema with R>L. NEUROLOGICAL: Cranial nerves II through XII grossly intact. Normal speech, gait not observed. PSYCH: Normal mood, normal affect. SKIN: Warm, dry, normal turgor. Ecchymosis noted to right upper back/flank/RLQ. Skin tear noted to right groin. Laboratory Results - last 24 hr 09/01/17 09/01/17 09/02/17 22:15 22:15 08:00 WBC 4.8 D RBC 2.88 L Hgb 8.8 L D Hct 26.9 L MCV 93.2 MCH 30.4 MCHC 32.6 RDW 20.3 H Plt Count 172 MPV 8.2 Neutrophils % 77.7 Lymphocytes % 13.5 D Monocytes % 5.8 Eosinophils % 2.5 D Basophils % 0.5 PT with INR INR Sodium Potassium Chloride Carbon Dioxide Anion Gap BUN Creatinine Creat Clearance w eGFR Random Glucose Calcium Phosphorus Magnesium Total Bilirubin AST ALT Alkaline Phosphatase Total Protein Albumin Blood Type A POSITIVE Cancelled Antibody Screen Negative Cancelled Crossmatch See Detail Spec Expiration Date Cancelled 09/02/17 09/02/17 08:00 08:00 WBC RBC Hgb Hct MCV MCH MCHC RDW Plt Count MPV Neutrophils % Lymphocytes % Monocytes % Eosinophils % Basophils % PT with INR 24.0 H INR 2.18 H Sodium 136 Potassium 2.4 L* D Chloride 94 L Carbon Dioxide 32 H Anion Gap 10 BUN 39 H Creatinine 1.3 Creat Clearance w eGFR 52.34 Random Glucose 89 Calcium 8.6 Phosphorus 3.6 Magnesium 2.2 Total Bilirubin 1.7 H AST 47 H ALT 23 Alkaline Phosphatase 62 Total Protein 6.7 Albumin 3.3 L Blood Type Antibody Screen Crossmatch Spec Expiration Date Active Medications Generic Name Dose Route Start Last Admin Trade Name Freq PRN Reason Stop Dose Admin Acetaminophen 650 mg 09/01/17 00:39 Tylenol - PO Q4H PRN FEVER OR PAIN Atorvastatin Calcium 10 mg 09/02/17 10:00 09/02/17 10:10 Lipitor - PO 10 mg TuSa@1000 NEIL Administration Calcium Carbonate 500 mg 09/01/17 10:00 09/02/17 10:05 Os-Thomas 500mg - PO 500 mg BID NEIL Administration Carvedilol 3.125 mg 09/01/17 10:00 09/02/17 10:05 Coreg - PO 3.125 mg BID NEIL Administration Ferrous Sulfate 325 mg 09/01/17 10:00 09/02/17 10:05 Feosol - PO 325 mg DAILY NEIL Administration Potassium Chloride 10 meq in 100 mls @ 100 mls/hr 09/02/17 09:15 09/02/17 10: 05 Potassium Chloride 10 Meq Premix Ivpb - IVPB 09/02/17 11:14 100 mls/hr Q60M NEIL Administration Levothyroxine Sodium 100 mcg 09/01/17 07:00 09/02/17 07:06 Synthroid - PO 100 mcg AM NEIL Administration Multivitamins/Minerals/Vitamin C 1 tab 09/01/17 10:00 09/02/17 10:05 Tab-A-Vit - PO 1 tab DAILY NEIL Administration Mupirocin 1 applic 09/01/17 23:45 09/02/17 10:06 Bactroban 2% Ointment - TP 1 applic BID NEIL Administration Imaging:EXAM#: TYPE/EXAM: RESULT: [id number] CT/ABDOMEN PELVIS CT W/O CONTR [id number] CT/CHEST CT WITHOUT CONTRAST HISTORY PROVIDED: Ecchymosis of the right shoulder and flank TECHNIQUE: Sequential axial images were obtained from the thoracic inlet through the symphysis pubis The study is markedly limited without the use of any contrast material. Evaluation of the lung recinos demonstrates a large right pleural effusion with atelectasis of the right lower lobe. There is a small left pleural effusion with mild degree of patchy consolidation within the left lower lobe. The upper lung recinos are largely clear. The heart is enlarged. No mediastinal masses or fluid collections identified. No significant lymphadenopathy is noted. The right shoulder joint is intact with no evidence of fracture or dislocation. There is no evidence of rib fracture or acute bony pathology. There is no evidence of soft tissue masses or fluid collections about the shoulder joint. The liver, spleen, pancreas, adrenal glands and kidneys demonstrate no gross abnormalities. There is an oval mass within the mid abdomen just anterior to the pancreas. The mass measures 3.7 x 3.3 x 3.3 cm. Its etiology is uncertain. It could represent an unopacified bowel loop, however, more ominous pathology cannot be excluded. A follow-up study with both oral and intravenous contrast administration would be necessary to further evaluate this mass. There is no evidence of pneumoperitoneum, bowel obstruction or intra-abdominal abscess. There are edematous changes within the subcutaneous tissues about the chest, abdomen and pelvis. There is a right flank fluid collection adjacent to the right iliac bone. The collection most likely represents a hematoma and measures approximately 4.0 x 6.4 x 3.6 cm. Examination of the pelvis demonstrates markedly limited due to extensive artifact from the patient' s bilateral total hip replacements. There is no gross evidence of pelvic masses, fluid collections or lymphadenopathy. There is no evidence of fracture or acute bony pathology. IMPRESSION: 1. Large right pleural effusion with lower lobe atelectasis. 2. Small left pleural effusion with left basilar consolidation. 3. No evidence of right shoulder fracture or periarticular hematoma. 4. No gross evidence of intra-abdominal organ injury. 5. Mid mesenteric mass of uncertain etiology. Clinical correlation and follow-up recommended. 6. Right flank fluid collection suspicious for a hematoma. 7. No evidence of fracture or acute bony pathology. Please see above discussion. Reported By: Ta Wallace MD [id number] ASSESSMENT/PLAN: A: 86 year-old male with a PMH significant for HTN, HLD, afib on [place], biventricular systolic heart failure, severe TR, CVA (2010), right pleural effusion s/p thoracentesis (2015), and hypothyroidism. P: Symptomatic anemia likely secondary to acute blood loss - large ecchymotic area that extends from right scapula, right flank, across RLQ into penis - CT as above - baseline Hgb 11; 8.6 on admission, now 7.9-> 8.8 s/p transfusion - 1U PRBC transfused with hgb->8.8 post transfusion - trend CBC - repeat CBC @2pm - occult stool collected->brown stool Biventricular systolic heart failure - normotensive - rising bicarb likely secondary to low volume state/contraction alkalosis - hold diuretics - cardiology following GILMER - Cr 1.7->1.5->1.3; baseline 1.1 - continue to hold diuretics - strict I&Os, daily weights Afib on [place] - CHADS score 6, moderate to high risk of stroke; HAS BLED score 9, high risk of bleeding - relative risk of bleeding appears to outweigh relative risk of stroke at the present time, especially in view of symptomatic anemia - hold Pradaxa - rate well-controlled - continue Coreg Pleural Effusion - Asymptomatic - PNA vs Hemothorax vs Metastatic disease vs CHF - will start abx if febrile or leukocytosis - consider pleuracentesis if becomes symptomatic Supratherapuetic INR - ?metastatic disease- mass on CT scan and pleural effusion Hypokalemia - likely from Lasix use - hold Lasix - repleted - trend Hypertension - presently hypotensive - hold diuretics Hyponatremia, resolved Hypothyroidism - continue levothyroxine F/E/N - Low Na diet - trend electrolyes PPX - SCD - hold chemical prophylaxis 2/2 bleeding Physical therapy evaluation Dispo- Patient requires inpatient care to monitor closely for signs of worsening anemia, hypotension, and GILMER. Code Status- Full code.
[2017-09-02 14:39] LABS: EOSINOPHIL 2.1 % (0-4.5)
[2017-09-02 14:41] LABS: BASOPHIL 0.3 % (0-2.0); MCH 31.3 pg (25.7-33.7); MCHC 33.2 g/dl (32.0-35.9); MEAN CELL VOLUME 94.4 fl (80-96); MEAN PLT VOLUME 8.2 fl (7.5-11.1); NEUTROPHILS 77.7 % (42.8-82.8); PLATELET COUNT 190 K/MM3 (134-434); RDW 20.2 % (11.9-15.9); WHITE BLOOD COUNT 5.2 K/mm3 (4.0-10.8)
[2017-09-02] MEDS ORDERED: POTASSIUM CHLORIDE ORAL LIQUID 20 MEQ/15 ML PO ONE (16:08)
--- NOTE | 2017-09-02 20:05 | HOSP ---
Subjective - Review of Symptoms Events since last encounter: Hospitalist Encounter Notified by the primary RN that the patient is in Afib with RVR 120's A/P Dx: Afib with RVR, Electrolyte Imbalance EKG stat BP stat Will order Metoprolol RN to call Cardiology- who placed orders Spoke with Joy Blancas, evening nursing traffic sign supervisor Will transfer to [facility] Telemetry if the rate does not control Per RN, the patient is asymptomatic Will continue to monitor Physical Examination Vital Signs: Vital Signs Temperature 97.5 F L 09/02/17 14:29 Pulse Rate 128 H 09/02/17 14:29 Respiratory Rate 18 09/02/17 14:29 Blood Pressure 108/63 09/02/17 14:29 O2 Sat by Pulse Oximetry (%) 99 09/02/17 14:29 Labs: CBC, BMP 09/02/17 14:00 09/02/17 15:15 Critical Care Total Critical Care Time (in minutes): 31 Critical Care Statement: The care of this patient involved high complexity decision making to prevent further life threatening deterioration of the patient 's condition and/or to evaluate & treat vital organ system(s) failure or risk of failure.
[2017-09-02] MEDS ORDERED: METOPROLOL TARTRATE 5 MG/5 ML VIAL IVPUSH ONE (20:45)
[2017-09-02] MEDS: CARVEDILOL 6.25 MG TABLET (FP) PO SCH (21:44)
[2017-09-02] MEDS: POTASSIUM CHLORIDE ORAL LIQUID 20 MEQ/15 ML PO SCH (23:41)
[2017-09-03] MEDS: SENNOSIDES/DOCUSATE COMBO (SENNA PLUS) TABLET (UD) PO SCH ×3 (06:00→21:28)
[2017-09-03] MEDS: LEVOTHYROXINE NA 100 MCG TABLET (FP) PO SCH (06:01)
--- NOTE | 2017-09-03 08:06 | CONSULT ---
Consult - text type - Consultation Consultation Note: CARDIOLOGY INCREASED HEART RATE 120/MINUTE LED TO INCREASED COREG DOSE WITH DECREASE IN HEART RATE 10 ABOUT 100 IN (CHRONIC) ATRIAL FIBRILLATION. NO CHEST PAIN. NO PALPITATIONS. NO DYSPNEA. MEDICATIONS REVIEWED. LYING FLAT NO DISTRESS. BP 110 SYSTOLIC HEART RATE 100/MINUTE. AFEBRILE RESP 19/MINUTE. DECREASED BREATH SOUNDS RIGHT POSTERIOR LUNG FIELD. FAINT EXPIRATORY WHEEZE, IRREGULAR HEART RHYTHM. 1/6 SYSTOLIC MURMUR. NO GALLOP. NO EDEMA. MARKED ECCHYMOSIS RIGHT FLANK/PELVIC AREA. FEET WARM, WELL PERFUSED. ECG 09/02/17 ATRIAL FIB RAPID VENTRICULAR RESPONSE. RIGHT BUNDLE BRANCH BLOCK LEFT AXIS . MILD ST DEPRESSIONS LATERAL PRECORDIAL LEADS. HCT 26% INR >2. INCEASED TOTAL BILIRUBIN OTHER LFT'S UNREMARKABLE IMPRESSION. ATRIAL FIBRILLATION WITH INCREASED VENTRICULAR RESPONSE IN PART DUE TO ANEMIA. BLOOD LOSS ANEMIA SECONDARY TO TRAUMA. ETIOLOGY COAGULOPATHY UNCERTAIN. DOUBT DUE TO LIVER DYSFUNCTION SECONDARY TO ATROVASTATIN. PROBABLE MODERATE-LARGE TRANSUDATIVE RIGHT PLEURAL EFFUSION. ELEVATED INR MAKES THORACENTESIS PROBLEMATIC. HEMODYNAMICALLY STABLE PLEASE SEE 09/01/17 DICTATED REPORT. REC: DISCONTINUE LIPITOR. LANOXIN 0.5 MG IV AND 0.125 MG DAILY ORALLY. TRANSFUSE PACKED RED BLOOD CELLS WITH SIMULTANEOUS ADMINISTRATION OF I V LASIX. CONSIDER HEMATOLOGY CONSULT. DIRECTED BY INTERNAL MEDICINE
[2017-09-03] MEDS ORDERED: DIGOXIN 0.5 MG/2 ML AMPUL IVPUSH ONE (08:29)
--- NOTE | 2017-09-03 08:37 | PN ---
Physical Exam: SUBJECTIVE: Patient seen and examined Pt reports sob,denies cp,palpitations, dizziness or weakness. OBJECTIVE: Vital Signs Period Temp Pulse Resp BP Sys/Servin Pulse Ox Last 24 Hr 97.3 F-98.1 F 107-128 18-20 101-114/57-65 95-100 GENERAL: The patient is awake, alert, and fully oriented, in no acute distress. HEAD: Normal with no signs of trauma. EYES: PERRL, extraocular movements intact, sclera anicteric, conjunctiva clear. No ptosis. ENT: Ears normal, nares patent, oropharynx clear without exudates, moist mucous membranes. NECK: Trachea midline, full range of motion, supple. LUNGS: Breath sounds equal, clear to auscultation bilaterally, no wheezes, + crackles, no accessory muscle use. HEART: Irregular, systolic murmur no rub or gallop. ABDOMEN: Soft, nontender, nondistended, normoactive bowel sounds, no guarding, no rebound, no hepatosplenomegaly, no masses. EXTREMITIES: 2+ pulses, warm, well-perfused, no edema. NEUROLOGICAL: Cranial nerves II through XII grossly intact. Normal speech, gait not observed. PSYCH: Normal mood, normal affect. SKIN: Warm, dry, normal turgor, no rashes or lesions noted, large ecchymosis on Rt flank down to Rt hip and lateral thigh. Laboratory Results - last 24 hr 09/02/17 09/02/17 09/02/17 08:00 08:00 08:00 WBC 4.8 D RBC 2.88 L Hgb 8.8 L D Hct 26.9 L MCV 93.2 MCH 30.4 MCHC 32.6 RDW 20.3 H Plt Count 172 MPV 8.2 Neutrophils % 77.7 Lymphocytes % 13.5 D Monocytes % 5.8 Eosinophils % 2.5 D Basophils % 0.5 PT with INR 24.0 H INR 2.18 H Sodium 136 Potassium 2.4 L* D Chloride 94 L Carbon Dioxide 32 H Anion Gap 10 BUN 39 H Creatinine 1.3 Creat Clearance w eGFR 52.34 Random Glucose 89 Calcium 8.6 Phosphorus 3.6 Magnesium 2.2 Total Bilirubin 1.7 H AST 47 H ALT 23 Alkaline Phosphatase 62 Total Protein 6.7 Albumin 3.3 L Stool Occult Blood 09/02/17 09/02/1717 11:00 14:00 15:15 WBC 5.2 RBC 2.83 L Hgb 8.8 L Hct 26.7 L MCV 94.4 MCH 31.3 MCHC 33.2 RDW 20.2 H Plt Count 190 MPV 8.2 Neutrophils % 77.7 Lymphocytes % 12.8 Monocytes % 7.1 Eosinophils % 2.1 Basophils % 0.3 PT with INR INR Sodium Potassium 2.7 L* Chloride Carbon Dioxide Anion Gap BUN Creatinine Creat Clearance w eGFR Random Glucose Calcium Phosphorus Magnesium Total Bilirubin AST ALT Alkaline Phosphatase Total Protein Albumin Stool Occult Blood Negative 09/02/17 22:30 WBC RBC Hgb Hct MCV MCH MCHC RDW Plt Count MPV Neutrophils % Lymphocytes % Monocytes % Eosinophils % Basophils % PT with INR INR Sodium Potassium 3.8 D Chloride Carbon Dioxide Anion Gap BUN Creatinine Creat Clearance w eGFR Random Glucose Calcium Phosphorus Magnesium Total Bilirubin AST ALT Alkaline Phosphatase Total Protein Albumin Stool Occult Blood Active Medications Generic Name Dose Route Start Last Admin Trade Name Freq PRN Reason Stop Dose Admin Acetaminophen 650 mg 09/01/17 00:39 Tylenol - PO Q4H PRN FEVER OR PAIN Calcium Carbonate 500 mg 09/01/17 10:00 09/02/17 21:44 Os-Thomas 500mg - PO 500 mg BID NEIL Administration Carvedilol 6.25 mg 09/02/17 22:00 09/02/17 21:44 Coreg - PO 6.25 mg BID NEIL Administration Digoxin 0.125 mg 09/04/17 09:00 Lanoxin - PO DAILY NEIL Digoxin 0.5 mg 09/03/17 08:29 Lanoxin Injection - IVPUSH 09/03/17 08:30 ONCE ONE Ferrous Sulfate 325 mg 09/01/17 10:00 09/02/17 10:05 Feosol - PO 325 mg DAILY NEIL Administration Levothyroxine Sodium 100 mcg 09/01/17 07:00 09/03/17 06:01 Synthroid - PO 100 mcg AM NEIL Administration Multivitamins/Minerals/Vitamin C 1 tab 09/01/17 10:00 09/02/17 10:05 Tab-A-Vit - PO 1 tab DAILY NEIL Administration Mupirocin 1 applic 09/01/17 23:45 09/02/17 22:39 Bactroban 2% Ointment - TP 1 applic BID NEIL Administration Potassium Chloride 20 meq 09/02/17 22:00 09/02/17 23:41 Potassium Chloride Oral Liquid PO Not Given BID NEIL Senna/Docusate Sodium 1 tablet 09/03/17 02:00 09/03/17 06:00 Pericolace - PO 1 tablet BID NEIL Administration ASSESSMENT/PLAN: This is an 86 year-old male with a PMH significant for HTN, HLD, afib on dagitriban, biventricular systolic heart failure, severe TR, CVA (2010), right pleural effusion s/p thoracentesis (2014), and hypothyroidism. *Symptomatic anemia likely secondary to acute blood loss,s/p fall - large ecchymotic area that extends from right scapula, right flank, across RLQ into penis- - CT reviewed - baseline Hgb 11; 8.6 on admission, now 7.9-> 8.8>8.5 s/p transfusion 1 unit - trend CBC - occult stool - negative *Biventricular systolic heart failure - SOB today - will give stat dose of Lasix - rising bicarb likely secondary to low volume state/contraction alkalosis - holding diuretics - cardiology following *GILMER - Cr 1.7->1.5->1.3; baseline 1.1 - continue to hold diuretics - strict I&Os, daily weights *Afib on dagitriban- HR > 100's - CHADS score 6, moderate to high risk of stroke; HAS BLED score 9, high risk of bleeding - relative risk of bleeding appears to outweigh relative risk of stroke at the present time, especially in view of symptomatic anemia - hold Pradaxa - rate well-controlled - increased Coreg dose - added Digoxin per cardiology - cardiology input appreciated *Pleural Effusion - Asymptomatic - PNA vs Hemothorax vs Metastatic disease vs CHF - will start abx if febrile or leukocytosis - consider pleuracentesis if becomes symptomatic *Supratherapuetic INR - ?metastatic disease- mass on CT scan and pleural effusion - will check PTT *Hypokalemia- likely from Lasix use - hold Lasix - repleted *Hypertension- BP improved - holding diuretics *Hyponatremia, resolved *Hypothyroidism - continue levothyroxine *F/E/N - Low Na diet - trend electrolytes *Liver dysfunction, unknown etiology,? related to Lipitor vs pleural effusion - will hold off on Statin - hematology consult PPX - SCD - hold chemical prophylaxis 2/2 bleeding Physical therapy evaluation Dispo- Patient requires inpatient care to monitor closely for signs of worsening anemia,Rapid A-Fib Code Status- Full code. Visit type - Emergency Visit Emergency Visit: Yes ED Registration Date: 09/01/17 Care time: The patient presented to the Emergency Department on the above date and was hospitalized for further evaluation of their emergent condition. - New Patient This patient is new to me today: Yes Date on this admission: 09/03/17 - Critical Care Critical Care patient: No
[2017-09-03 08:40] LABS: BASOPHIL 0.3 % (0-2.0); EOSINOPHIL 1.7 % (0-4.5); MCH 30.9 pg (25.7-33.7); MCHC 32.7 g/dl (32.0-35.9); MEAN CELL VOLUME 94.5 fl (80-96); MEAN PLT VOLUME 8.4 fl (7.5-11.1); NEUTROPHILS 78.6 % (42.8-82.8); PLATELET COUNT 180 K/MM3 (134-434); RDW 20.5 % (11.9-15.9); WHITE BLOOD COUNT 5.5 K/mm3 (4.0-10.8)
[2017-09-03] MEDS: POTASSIUM CHLORIDE ORAL LIQUID 20 MEQ/15 ML PO SCH ×2 (09:05→21:28)
[2017-09-03] MEDS: CALCIUM (OYSTER SHELL) 500 MG TABLET (FP) PO SCH ×2 (09:05→21:28)
[2017-09-03] MEDS: CARVEDILOL 6.25 MG TABLET (FP) PO SCH ×3 (09:05→23:47)
[2017-09-03] MEDS: MUPIROCIN 2% TOPICAL OINTMENT 22 GM TUBE TP SCH ×2 (09:05→22:39)
[2017-09-03] MEDS: FERROUS SO4 325 MG TABLET (FP) PO SCH (09:05)
[2017-09-03] MEDS: MULTIVITAMINS (DAILY MVI) TABLET (FP) PO SCH (09:05)
[2017-09-03 09:14] LABS: ANION GAP 7 (8-16); CALCIUM 8.5 mg/dl (8.4-10.2); CO2 32 mmol/L (22-28); CREATININE 1.1 mg/dl (0.6-1.3); GLUCOSE,RANDOM 89 mg/dl (74-106)
[2017-09-03 09:31] LABS: INR 1.5 (0.82-1.09); PROTHROMBIN TIME (PATIENT) 16.7 SEC (10.2-13.0)
[2017-09-03] MEDS ORDERED: ALBUTEROL SO4 2.5/IPRATROPIUM 0.5 INH SOL 3 ML VIAL.NEB. NEB PRN (09:53)
[2017-09-03] MEDS: FUROSEMIDE 40 MG/4 ML INJECTABLE VIAL IVPUSH SCH (10:20)
[2017-09-03] MEDS ORDERED: POTASSIUM CHLORIDE TABS 20 MEQ TABLET.ER (FP) PO ONE (11:00)
--- NOTE | 2017-09-03 16:12 | CONSULT ---
Consult Consult Specialty:: heme Reason for Consultation:: coagulopathy - History of Present Illness Chief Complaint: pt eval'd at [facility] and d/w hospitalist. asked to eval re: elev INR History of Present Illness: 86 yom adm 4d ago following fall 8d ago. He reports slipping when getting OOB to go to and fell on hip. Notes progressive weakness over next several days and went to ED. Takes pradaxa for AF. Noted w large ecchymosis hip, flank. He was also anemic, but noted to have DEEPTHI recently, preceding fall and was started on iron suppl. Noteworthy is h/o rectal bleeding earlier in year and reportedly was adm to [place] and had upper and lower endoscopy evidencing DU and hemorrhoid per pt. H2 lauren and prevacid instituted. He notes that bleeding never returned. Also noteworthy is CVA 2010 and evaluated at [place]. At that time, coumadin was switched to pradaxa. Has not rec'd transfusion before this hospitalization. Given 1U PCs and h/h essentially stable. NOted w elevated INR, Cr on admission. In addn, has mild elev of AST, bili which appear to be chronic. denies EtOH use. 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: CVA (2010, right distal MCA occlusion) Cardio/Vascular: Yes: AFIB, CHF (mild LV systolic dysunction, moderate RV systolic dysfunction), Hyperlipdemia, Pulmonary Hypertension, Other ( pericarditis 1980) Gastrointestinal: Yes: GERD, Hemorrhoids, Peptic Ulcer Disease Renal/: Yes: BPH Musculoskeletal: Yes: Osteoarthritis Endocrine: Yes: Hypothyroidism - Past Surgical History Past Surgical History: Yes: Colectomy (partial colectomy for volvulus), Hernia Repair (Left repair 10/2014), Joint Replacement (bilateral THRs 1991), Prostatectomy (1979), Vasectomy (1979) - Alcohol/Substance Use Hx Alcohol Use: No History of Substance Use: reports: None - Smoking History Smoking history: Never smoked Have you smoked in the past 12 months: No - Social History ADL: Independent Home Medications - Allergies Allergies/Adverse Reactions: Allergies Allergy/AdvReac Type Severity Reaction Status Date / Time No Known Allergies Allergy Verified 06/10/17 09:35 - Home Medications Home Medications: Ambulatory Orders Calcium Carbonate [Calcium] 500 mg PO BID tablet 11/06/14 Multivitamin [Daily Vitamin] 1 each PO DAILY tablet 11/06/14 Metolazone 2.5 mg PO PRN tablet 11/14/16 Carvedilol [Coreg] 3.125 mg PO BID tablet 04/26/17 [place]-3/Dha/Epa/Lut/Zeaxanthin [[facility] Softgel] 1 each PO 2 CAPS BID capsule 04/26/17 Ferrous Sulfate 325 mg PO DAILY 08/31/17 Family Disease History - Family Disease History Family Disease History: Heart Disease: Father (heart disease 72), Other: Mother (ca pancreas 89) Review of Systems - Review of Systems Constitutional: reports: Weakness Physical Exam Vital Signs: Vital Signs Temperature 97.9 F 09/03/17 14:00 Pulse Rate 91 H 09/03/17 14:00 Respiratory Rate 19 09/03/17 14:00 Blood Pressure 113/60 09/03/17 14:00 O2 Sat by Pulse Oximetry (%) 99 09/03/17 14:00 Constitutional: Yes: Other (elderly male, NAD seated in chair, conversant) Cardiovascular: Yes: Other (irreg S1S2) Respiratory: Yes: CTA Bilaterally Gastrointestinal: Yes: Other (mild distension, soft, NT) Edema: No (RLE>LLE (chronic)) Integumentary: Yes: Other (ecchymoses R hip ext down to lat thigh) Neurological: Yes: Other (A&O; grossly NF) Labs: CBC, BMP 09/03/17 06:00 09/03/17 06:00 Assessment/Plan Elevated PT in setting of bleeding while on pradaxa and with subsequent RI Unknown baseline PT/PTT; all values in system are elev and likely in setting of coumadin, pradaxa. Furthermore, appears to have chronic mild elevation of LFTs which may be contrib to coagulopathy. INR decreasing and renal fxn has normalized. Pradaxa in system likely marginal at this point. Would repeat imaging for f/u of bleeding, monitor serial h/h, f/u PT, PTT, fibrinogen, LFTS w fractionation of bili. 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
[2017-09-03] MEDS ORDERED: PT OWN MED DRAWER 7, Y5N ONE (21:20)
[2017-09-04] MEDS: LEVOTHYROXINE NA 100 MCG TABLET (FP) PO SCH (06:30)
[2017-09-04 08:12] LABS: ALBUMIN 2.9 g/dl (3.4-5.0)
[2017-09-04 08:22] LABS: ALK PHOS 76 U/L (45-117); BILIRUBIN,DIRECT 0.3 mg/dL (0.0-0.2); SGOT/AST 43 U/L (15-37); SGPT/ALT 24 U/L (12-78); TOT PROT 6.6 g/dl (6.4-8.2)
[2017-09-04 09:03] LABS: ANION GAP 6 (8-16); CALCIUM 7.9 mg/dL (8.5-10.1); CO2 32 mmol/L (21-32); CREATININE 1.1 mg/dL (0.7-1.3); GLUCOSE,RANDOM 87 mg/dL (74-106)
--- NOTE | 2017-09-04 09:56 | PN ---
Physical Exam: SUBJECTIVE: Patient seen and examined at the bedside. He was awake and alert and in no acute distress. Denies chest pain or shortness of breath. OBJECTIVE: Patient had a ultrasound guided thoracentesis on 11/19/2014 @ [place]. for symptomatic right sided pleural effusion and 1400cc was removed Pulmonary consulted Vital Signs Period Temp Pulse Resp BP Sys/Servin Pulse Ox Last 24 Hr 97.5 F-98.5 F 74-110 19-22 96-139/52-80 96-99 GENERAL: The patient is awake, alert, and fully oriented, in no acute distress. HEAD: Normal with no signs of trauma. EYES: PERRL, extraocular movements intact, sclera anicteric, conjunctiva clear. No ptosis. LUNGS: Breath diminished to right base. No wheezes, no crackles, no accessory muscle use, on 2 liters of supplemental oxygen HEART: irregular heart rate, afib 89 ABDOMEN: Soft, nontender, mildly distended, normoactive bowel sounds, no guarding, no rebound, no hepatosplenomegaly, no masses. EXTREMITIES: 2+ pulses, warm, well-perfused, +2 pedal edema with R>L. NEUROLOGICAL: Normal speech, gait not observed. PSYCH: Normal mood, normal affect. SKIN: Large ecchymosis area noted from right upper back > flank>RLQ > right groin s/p sustained at home while attempting to ambulate to bathroom Laboratory Results - last 24 hr 09/03/17 09/04/17 09/04/17 06:00 06:35 06:35 PTT (Actin FS) 47.3 H Sodium 141 Potassium 4.0 Chloride 103 Carbon Dioxide 32 Anion Gap 6 L BUN 27 H D Creatinine 1.1 Random Glucose 87 Calcium 7.9 L Total Bilirubin 1.0 Cancelled Direct Bilirubin 0.3 H Cancelled AST 43 H D Cancelled ALT 24 Cancelled Alkaline Phosphatase 76 D Cancelled Total Protein 6.6 Cancelled Albumin 2.9 L Cancelled Active Medications Generic Name Dose Route Start Last Admin Trade Name Freq PRN Reason Stop Dose Admin Acetaminophen 650 mg 09/01/17 00:39 Tylenol - PO Q4H PRN FEVER OR PAIN Albuterol/Ipratropium 1 amp 09/03/17 09:53 09/03/17 10:20 Duoneb - NEB 1 amp Q4H PRN Administration SHORTNESS OF BREATH Calcium Carbonate 500 mg 09/01/17 10:00 09/03/17 21:28 Os-Thomas 500mg - PO 500 mg BID NEIL Administration Carvedilol 6.25 mg 09/02/17 22:00 09/03/17 23:47 Coreg - PO 6.25 mg BID NEIL Administration Digoxin 0.125 mg 09/04/17 09:00 Lanoxin - PO DAILY NEIL Ferrous Sulfate 325 mg 09/01/17 10:00 09/03/17 09:05 Feosol - PO 325 mg DAILY NEIL Administration Furosemide 40 mg 09/03/17 10:00 09/03/17 10:20 Lasix Injection - IVPUSH 40 mg DAILY NEIL Administration Levothyroxine Sodium 100 mcg 09/01/17 07:00 09/04/17 06:30 Synthroid - PO 100 mcg AM NEIL Administration Multivitamins/Minerals/Vitamin C 1 tab 09/01/17 10:00 09/03/17 09:05 Tab-A-Vit - PO 1 tab DAILY NEIL Administration Mupirocin 1 applic 09/01/17 23:45 09/03/17 22:39 Bactroban 2% Ointment - TP 1 applic BID NEIL Administration Potassium Chloride 20 meq 09/02/17 22:00 09/03/17 21:28 Potassium Chloride Oral Liquid PO 20 meq BID NEIL Administration Senna/Docusate Sodium 1 tablet 09/03/17 02:00 09/03/17 21:28 Pericolace - PO 1 tablet BID NEIL Administration ASSESSMENT/PLAN: Patient is an 86 year old male with a past medical history of HTN, HLD, afib on dagit[place], biventricular systolic heart failure, severe TR, CVA (2010), right pleural effusion s/p thoracentesis (2014), and hypothyroidism. He presented to the ED on 09/01/2017 with increased weakness, fall at home and worsening shortness of breath. Hematology: Symptomatic anemia likely secondary to acute blood loss, s/p fall with large hematoma formation Large ecchymosis area noted from right upper back > flank>RLQ > right groin s/p sustained at home while attempting to ambulate to bathroom S/p 1 unit of prbc for hmg 7.9, now 8.5 Continue to trend CBC daily, transfuse as needed Occult stool negative Hold Pradaxa Supratherapuetic INR Pradaxa on hold 2/2 bleeding risk Reviewed with telephone clerk telegraph office Heme following Liver dysfunction, unknown etiology Hold off on statins hematology consult Cardiology: Biventricular systolic heart failure Shortness of breath at rest Lasix 40mg IV daily Supplemental oxygen Monitor respiratory status Daily weight, intake and output Atrial Fibrillation, chronic On Pradaxa, which is currently on hold secondary to high risk of bleed s/p fall High risk for stroke Cardiology following On Coreq BID Digoxin Renal: GILMER, improving Monitor BUN/Creat. Pulmonary: Pleural Effusion Has large right sided symptomatic pleural effusion s/p thoracentisis today with 1200 cc removed Pulmonary following F.E.N. Fluids: tolerating PO Electrolytes: monitor Nutrition: low sodium Prophylaxis: DVT: Pradaxa on hold, SCDs GI: deferred Disposition. full code. Visit type - Emergency Visit Emergency Visit: Yes ED Registration Date: 09/01/17 Care time: The patient presented to the Emergency Department on the above date and was hospitalized for further evaluation of their emergent condition. - New Patient This patient is new to me today: Yes Date on this admission: 09/04/17 - Critical Care Critical Care patient: No - Discharge Referral Referred to [facility] No
[2017-09-04] MEDS: SENNOSIDES/DOCUSATE COMBO (SENNA PLUS) TABLET (UD) PO SCH ×2 (10:26→21:21)
[2017-09-04] MEDS: MULTIVITAMINS (DAILY MVI) TABLET (FP) PO SCH (10:26)
[2017-09-04] MEDS: DIGOXIN 0.125 MG TABLET (FP) PO SCH ×2 (10:27→11:07)
[2017-09-04] MEDS: MUPIROCIN 2% TOPICAL OINTMENT 22 GM TUBE TP SCH ×2 (10:27→21:29)
[2017-09-04] MEDS: CALCIUM (OYSTER SHELL) 500 MG TABLET (FP) PO SCH ×2 (10:27→21:21)
[2017-09-04] MEDS: CARVEDILOL 6.25 MG TABLET (FP) PO SCH ×2 (10:27→21:21)
[2017-09-04] MEDS: FERROUS SO4 325 MG TABLET (FP) PO SCH (10:27)
[2017-09-04] MEDS: FUROSEMIDE 40 MG/4 ML INJECTABLE VIAL IVPUSH SCH (10:28)
[2017-09-04 10:49] LABS: BASOPHIL 0.6 % (0-2.0); MCH 30.8 pg (25.7-33.7); MCHC 32.5 g/dl (32.0-35.9); MEAN CELL VOLUME 94.7 fl (80-96); NEUTROPHILS 75.5 % (42.8-82.8); PLATELET COUNT 177 K/MM3 (134-434); RDW 20.5 % (11.9-15.9); WHITE BLOOD COUNT 4.2 K/mm3 (4.0-10.0)
[2017-09-04 10:50] LABS: INR 1.35 (0.82-1.09); PROTHROMBIN TIME (PATIENT) 15.2 SEC (9.98-11.88)
[2017-09-04] MEDS: POTASSIUM CHLORIDE ORAL LIQUID 20 MEQ/15 ML PO SCH ×2 (11:06→21:23)
--- NOTE | 2017-09-04 13:01 | EKG ---
Test Reason : Blood Pressure : / mmHG Vent. Rate : 120 BPM Atrial Rate : 097 BPM P-R Int : 000 ms QRS Dur : 146 ms QT Int : 358 ms P-R-T Axes : 000 -44 -30 degrees QTc Int : 505 ms ATRIAL FIBRILLATION WITH RAPID VENTRICULAR RESPONSE LEFT AXIS DEVIATION RIGHT BUNDLE BRANCH BLOCK ST depression in V3-5, consider ischemia NONSPECIFIC ST AND T WAVE ABNORMALITY in inferior leads ABNORMAL ECG WHEN COMPARED WITH ECG OF 31-AUG-2017 23:00, QRS AXIS SHIFTED LEFT Confirmed by JABIER COX MD ([id number]) on 09/04/2017 1:00:34 PM Referred By: CAMRYN MILLER Confirmed By:JABIER COX MD
--- NOTE | 2017-09-04 13:25 | CON.PULM ---
Consult Consult Specialty:: Pulmonary Reason for Consultation:: We were called to assess the patient for bilateral pleural effusuions - History of Present Illness Chief Complaint: Generalized weakness, cough History of Present Illness: The patient is an 86 yo m w/ PMH A-fib, HTN, CHF who comes to the hospital c/o Generalized weakness, decreased exercise tolerance and dry cough for the past 2 weeks. The patient states that his symptoms got progressively worse and became particularly severe following thanksgiving, which prompted him to seek medical evaluation. Patient states that he cannot walk more than 20 feet without becoming short of breath. In the ED, He was found to have elevated BNP, hyponatremia and GILMER. A Chest xray and chest CT both showed bilateral pleural effusions worse on the right. Patient found sitting comfortably saturating 97% on supplemental O2. Patient not on supplemental oxygen at home. Patient states that his breathing is better today and the swelling in his legs is mildly improved. Patient for US guided thoracocentesis today. 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: CVA (2010, right distal MCA occlusion) Cardio/Vascular: Yes: AFIB, CHF (mild LV systolic dysunction, moderate RV systolic dysfunction), Hyperlipdemia, Pulmonary Hypertension, Other ( pericarditis 1980) Gastrointestinal: Yes: GERD, Hemorrhoids, Peptic Ulcer Disease Renal/: Yes: BPH Musculoskeletal: Yes: Osteoarthritis Endocrine: Yes: Hypothyroidism - Past Surgical History Past Surgical History: Yes: Colectomy (partial colectomy for volvulus), Hernia Repair (Left repair 10/2014), Joint Replacement (bilateral THRs 1991), Prostatectomy (1979), Vasectomy (1979) - Alcohol/Substance Use Hx Alcohol Use: No History of Substance Use: reports: None - Smoking History Smoking history: Never smoked Have you smoked in the past 12 months: No - Social History ADL: Independent Home Medications - Allergies Allergies/Adverse Reactions: Allergies Allergy/AdvReac Type Severity Reaction Status Date / Time No Known Allergies Allergy Verified 06/10/17 09:35 - Home Medications Home Medications: Ambulatory Orders Calcium Carbonate [Calcium] 500 mg PO BID tablet 11/06/14 Multivitamin [Daily Vitamin] 1 each PO DAILY tablet 11/06/14 Metolazone 2.5 mg PO PRN tablet 11/14/16 Carvedilol [Coreg] 3.125 mg PO BID tablet 04/26/17 [place]-3/Dha/Epa/Lut/Zeaxanthin [[facility] Softgel] 1 each PO 2 CAPS BID capsule 04/26/17 Ferrous Sulfate 325 mg PO DAILY 08/31/17 Family Disease History - Family Disease History Family Disease History: Heart Disease: Father (heart disease 72), Other: Mother (ca pancreas 89) Review of Systems - Review of Systems Constitutional: reports: Malaise, Weakness. denies: Chills, Fever Cardiovascular: reports: Shortness of Breath. denies: Chest Pain, Palpitations Respiratory: reports: Cough, SOB Physical Exam Vital Sings: Vital Signs Temperature 97.5 F L 09/04/17 06:00 Pulse Rate 93 H 09/04/17 10:27 Respiratory Rate 20 09/04/17 06:00 Blood Pressure 106/62 09/04/17 06:00 O2 Sat by Pulse Oximetry (%) 99 09/04/17 06:00 Constitutional: Yes: Well Nourished, No Distress, Calm HENT: Yes: Atraumatic, Normocephalic Neck: Yes: Supple, Trachea Midline Cardiovascular: Yes: Regular Rate and Rhythm, JVD, S1, S2. No: Gallop, Murmur, Rub, S3, S4 Respiratory: Yes: Regular, CTA Bilaterally, Cough Labs: CBC, BMP 09/04/17 06:35 09/04/17 06:35 Assessment/Plan The patient is an 86 yo m w/ PMH CHF, Afib, HTN who comes into the hospital c/o progressive weakness and cough for the past [address] chest shows b/l effusions. #Bilateral pleural effusions likely 2/2 CHF -s/p US guided thoracentesis -f/u results of pleural fluid studies -Lasix 40mg IV Daily -f/u rpt CXR -Supplemental O2 as tolerated -monitor Hb spot procedure
[2017-09-04 15:13] LABS: GLUCOSE,PLEURAL FLUID 102.198; TOTAL PROTEIN,PLEURAL FLUID 2.604
[2017-09-04 15:17] LABS: CHLORIDE PLEURAL FLUID 108
--- NOTE | 2017-09-04 15:21 | PN ---
Teaching Attending Note Name of Resident: Aníbal Lehman ATTENDING PHYSICIAN STATEMENT I saw and evaluated the patient. I reviewed the resident's note and discussed the case with the resident. I agree with the resident's findings and plan as documented. PULMONARY IMP ACUTE ON CHRONIC CHF RAPID AFIB R PLEURAL EFFUSION LIKELY TRANSUDATE. PT HAD THORACENTESIS 2014 FLUID WAS A TRANSUDATE,-CYTOLOGY S/P FALL H/O CVA PULMONARY HTN ANEMIA GILMER H/O GI BLEED PLAN LASIX CHECK RESULTS OF PLEURAL FLUID F/U CHEST X-RAY NASAL O2 MONITOR H+H DR CLAROS Problem List - Problems (1) Congestive heart failure (CHF) Code(s): I50.9 - HEART FAILURE, UNSPECIFIED Qualifiers: Congestive heart failure type: systolic Congestive heart failure chronicity : acute on chronic Qualified Code(s): I50.23 - Acute on chronic systolic ( congestive) heart failure (2) Acute exacerbation of CHF (congestive heart failure) Code(s): I50.9 - HEART FAILURE, UNSPECIFIED (3) Atrial fibrillation Code(s): I48.91 - UNSPECIFIED ATRIAL FIBRILLATION (4) Pleural effusion Code(s): J90 - PLEURAL EFFUSION, NOT ELSEWHERE CLASSIFIED (5) Anemia Code(s): D64.9 - ANEMIA, UNSPECIFIED (6) H/O: CVA (cerebrovascular accident) Code(s): Z86.73 - PRSNL HX OF TIA (TIA), AND CEREB INFRC W/O RESID DEFICITS (7) Atrial fibrillation with rapid ventricular response Code(s): I48.91 - UNSPECIFIED ATRIAL FIBRILLATION (8) Acute kidney injury Code(s): N17.9 - ACUTE KIDNEY FAILURE, UNSPECIFIED
[2017-09-04 15:40] LABS: PLEURAL FLUID COLOR YELLOW; PLEURAL FLUID SOURCE PLEURAL
[2017-09-04 15:41] LABS: PLEURAL FLUID APPEARANCE CLEAR
[2017-09-04 19:56] LABS: PLEURAL FLUID LYMPHOCYTES 30 %; PLEURAL FLUID MACROPHAGES 34 %; PLEURAL FLUID NEUTROPHIL 21 %
--- NOTE | 2017-09-05 05:15 | HOSP ---
Subjective - Review of Symptoms Events since last encounter: Hospitalist Encounter Notified by primary RN, that the patient is having L- shoulder pain earlier, now radiate to L- axilla. A/P Chest Pain r/o ACS Stat EKG- reviewed Afib with RVR 108 bpm, RBBB improved from prior tracing Stat Cardiac Profile Patient given nitro earlier by RN- reports some improvement Offered Morphine Sulfate, patient refused. NTG sl held secondary to BP 94/59 see PE Will continue to monitor, and have Day Team f/u with CE Physical Examination Vital Signs: Vital Signs Temperature 98.7 F 09/05/17 02:00 Pulse Rate 100 H 09/05/17 02:00 Respiratory Rate 20 09/05/17 02:00 Blood Pressure 109/56 09/05/17 02:00 O2 Sat by Pulse Oximetry (%) 99 09/04/17 09:00 Constitutional: Yes: Well Nourished, Anxious Eyes: Yes: WNL, Conjunctiva Clear, PERRL HENT: Yes: WNL, Atraumatic, Normocephalic Neck: Yes: WNL, Supple, Trachea Midline Cardiovascular: Yes: Pulse Irregular, S1, S2 Respiratory: Yes: On Nasal O2, Rhonchi Gastrointestinal: Yes: Soft Musculoskeletal: Yes: Other Neurological: Yes: WNL, Alert, Oriented ...Motor Strength: WNL Psychiatric: Yes: WNL, Alert, Oriented Labs: CBC, BMP 09/04/17 06:35 09/04/17 06:35
[2017-09-05] MEDS: LEVOTHYROXINE NA 100 MCG TABLET (FP) PO SCH (07:00)
[2017-09-05 07:19] LABS: ANION GAP 5 (8-16); CALCIUM 8.6 mg/dL (8.5-10.1); CO2 35 mmol/L (21-32); CREATININE 1.1 mg/dL (0.7-1.3); GLUCOSE,RANDOM 98 mg/dL (74-106); MAGNESIUM 2.2 mg/dL (1.8-2.4); SGOT/AST 42 U/L (15-37); SGPT/ALT 26 U/L (12-78)
[2017-09-05 07:21] LABS: ALK PHOS 84 U/L (45-117); BILIRUBIN,TOTAL 1.4 mg/dL (0.2-1.0)
[2017-09-05 07:32] LABS: BASOPHIL 0.5 % (0-2.0); EOSINOPHIL 1.3 % (0-4.5); MCH 31.1 pg (25.7-33.7); MCHC 33.2 g/dl (32.0-35.9); MEAN CELL VOLUME 93.8 fl (80-96); MEAN PLT VOLUME 7.8 fl (7.5-11.1); NEUTROPHILS 84.5 % (42.8-82.8); PLATELET COUNT 195 K/MM3 (134-434); RDW 20.4 % (11.9-15.9); WHITE BLOOD COUNT 4.8 K/mm3 (4.0-10.0)
[2017-09-05 08:28] LABS: CPK 64 IU/L (39-308)
[2017-09-05 08:48] LABS: TROPONIN I 0.07 ng/ml (0.00-0.05)
--- NOTE | 2017-09-05 10:25 | EKG ---
Test Reason : Blood Pressure : / mmHG Vent. Rate : 108 BPM Atrial Rate : 129 BPM P-R Int : 000 ms QRS Dur : 132 ms QT Int : 382 ms P-R-T Axes : 000 052 -25 degrees QTc Int : 511 ms ATRIAL FIBRILLATION WITH RAPID VENTRICULAR RESPONSE WITH PREMATURE VENTRICULAR OR ABERRANTLY CONDUCTED COMPLEXES RIGHT BUNDLE BRANCH BLOCK ABNORMAL ECG WHEN COMPARED WITH ECG OF 02-SEP-2017 20:12, QRS AXIS SHIFTED RIGHT Confirmed by HIMANSHU MICHELE, ASHLEY ([id number]) on 09/05/2017 10:25:19 AM Referred By: Confirmed By:ASHLEY DOWNS MD
[2017-09-05] MEDS: FERROUS SO4 325 MG TABLET (FP) PO SCH (10:43)
[2017-09-05] MEDS: MULTIVITAMINS (DAILY MVI) TABLET (FP) PO SCH (10:43)
[2017-09-05] MEDS: SENNOSIDES/DOCUSATE COMBO (SENNA PLUS) TABLET (UD) PO SCH ×2 (10:43→23:08)
[2017-09-05] MEDS: CALCIUM (OYSTER SHELL) 500 MG TABLET (FP) PO SCH ×2 (10:43→23:08)
[2017-09-05] MEDS: DIGOXIN 0.125 MG TABLET (FP) PO SCH (10:43)
[2017-09-05] MEDS: MUPIROCIN 2% TOPICAL OINTMENT 22 GM TUBE TP SCH ×2 (10:43→23:08)
[2017-09-05] MEDS: CARVEDILOL 6.25 MG TABLET (FP) PO SCH (10:43)
[2017-09-05] MEDS: POTASSIUM CHLORIDE ORAL LIQUID 20 MEQ/15 ML PO SCH (10:44)
[2017-09-05] MEDS: FUROSEMIDE 40 MG/4 ML INJECTABLE VIAL IVPUSH SCH (10:46)
--- NOTE | 2017-09-05 11:13 | PN ---
Teaching Attending Note Name of Resident: Aníbal Lehman ATTENDING PHYSICIAN STATEMENT I saw and evaluated the patient. I reviewed the resident's note and discussed the case with the resident. I agree with the resident's findings and plan as documented. PULMONARY NO DISTRESS,OOB-CHAIR,-SOB,+LEFT SHOULDER DISCOMFORT. PLEURAL FLUID C/W TRANSUDATE IMP ACUTE ON CHRONIC CHF RAPID AFIB R PLEURAL EFFUSION LIKELY TRANSUDATE. PT HAD THORACENTESIS 2015 FLUID WAS A TRANSUDATE,-CYTOLOGY S/P FALL H/O CVA PULMONARY HTN ANEMIA GILMER H/O GI BLEED PLAN LASIX F/U CHEST X-RAY NASAL O2 MONITOR H+H DR CLAROS Problem List - Problems (1) Congestive heart failure (CHF) Code(s): I50.9 - HEART FAILURE, UNSPECIFIED Qualifiers: Congestive heart failure type: systolic Congestive heart failure chronicity : acute on chronic Qualified Code(s): I50.23 - Acute on chronic systolic ( congestive) heart failure (2) Acute exacerbation of CHF (congestive heart failure) Code(s): I50.9 - HEART FAILURE, UNSPECIFIED (3) Atrial fibrillation Code(s): I48.91 - UNSPECIFIED ATRIAL FIBRILLATION (4) Pleural effusion Code(s): J90 - PLEURAL EFFUSION, NOT ELSEWHERE CLASSIFIED (5) Anemia Code(s): D64.9 - ANEMIA, UNSPECIFIED (6) H/O: CVA (cerebrovascular accident) Code(s): Z86.73 - PRSNL HX OF TIA (TIA), AND CEREB INFRC W/O RESID DEFICITS (7) Atrial fibrillation with rapid ventricular response Code(s): I48.91 - UNSPECIFIED ATRIAL FIBRILLATION (8) Acute kidney injury Code(s): N17.9 - ACUTE KIDNEY FAILURE, UNSPECIFIED OBJECTIVE: ASSESSMENT AND PLAN: Problem List - Problems (1) Congestive heart failure (CHF) Code(s): I50.9 - HEART FAILURE, UNSPECIFIED Qualifiers: Congestive heart failure type: systolic Congestive heart failure chronicity : acute on chronic Qualified Code(s): I50.23 - Acute on chronic systolic ( congestive) heart failure (2) Acute exacerbation of CHF (congestive heart failure) Code(s): I50.9 - HEART FAILURE, UNSPECIFIED (3) Atrial fibrillation Code(s): I48.91 - UNSPECIFIED ATRIAL FIBRILLATION (4) Pleural effusion Code(s): J90 - PLEURAL EFFUSION, NOT ELSEWHERE CLASSIFIED (5) Anemia Code(s): D64.9 - ANEMIA, UNSPECIFIED (6) H/O: CVA (cerebrovascular accident) Code(s): Z86.73 - PRSNL HX OF TIA (TIA), AND CEREB INFRC W/O RESID DEFICITS (7) Atrial fibrillation with rapid ventricular response Code(s): I48.91 - UNSPECIFIED ATRIAL FIBRILLATION (8) Acute kidney injury Code(s): N17.9 - ACUTE KIDNEY FAILURE, UNSPECIFIED
--- NOTE | 2017-09-05 11:52 | PN ---
Progress Note, Physician History of Present Illness: Pulmonary follow up consultation Patient seen and examined at bedside. He states that his breathing is improved today after thoracentesis yesterday. Overnight, the patient complained of bilateral shoulder pain. ACS workup performed and was negative. - Current Medication List Current Medications: Active Medications Acetaminophen (Tylenol -) 650 mg PO Q4H PRN PRN Reason: FEVER OR PAIN Last Admin: 09/04/17 21:21 Dose: 650 mg Albuterol/Ipratropium (Duoneb -) 1 amp NEB Q4H PRN PRN Reason: SHORTNESS OF BREATH Last Admin: 09/03/17 10:20 Dose: 1 amp Calcium Carbonate (Os-Thomas 500mg -) 500 mg PO BID [facility] Last Admin: 09/05/17 10:43 Dose: 500 mg Carvedilol (Coreg -) 6.25 mg PO BID [facility] Last Admin: 09/05/17 10:43 Dose: 6.25 mg Digoxin (Lanoxin -) 0.125 mg PO DAILY [facility] Last Admin: 09/05/17 10:43 Dose: 0.125 mg Ferrous Sulfate (Feosol -) 325 mg PO DAILY [facility] Last Admin: 09/05/17 10:43 Dose: 325 mg Furosemide (Lasix Injection -) 40 mg IVPUSH DAILY [facility] Last Admin: 09/05/17 10:46 Dose: 40 mg Levothyroxine Sodium (Synthroid -) 100 mcg PO AM [facility] Last Admin: 09/05/17 07:00 Dose: 100 mcg Multivitamins/Minerals/Vitamin C (Tab-A-Vit -) 1 tab PO DAILY [facility] Last Admin: 09/05/17 10:43 Dose: 1 tab Mupirocin (Bactroban 2% Ointment -) 1 applic TP BID [facility] Last Admin: 09/05/17 10:43 Dose: 1 applic Potassium Chloride (Potassium Chloride Oral Liquid) 20 meq PO BID [facility] Last Admin: 09/05/17 10:44 Dose: 20 meq Senna/Docusate Sodium (Pericolace -) 1 tablet PO BID [facility] Last Admin: 09/05/17 10:43 Dose: 1 tablet - Objective Vital Signs: Vital Signs Temperature 98.7 F 09/05/17 02:00 Pulse Rate 96 H 09/05/17 10:43 Respiratory Rate 24 09/05/17 05:22 Blood Pressure 94/59 09/05/17 05:22 O2 Sat by Pulse Oximetry (%) 95 09/05/17 05:22 Constitutional: Yes: Well Nourished, No Distress, Calm HENT: Yes: Atraumatic, Normocephalic Neck: Yes: Supple, Trachea Midline Cardiovascular: Yes: Regular Rate and Rhythm, S1, S2. No: JVD, Gallop, Murmur, Rub, S3, S4 Respiratory: Yes: Regular, Other (inspiratory crackles worse at the bases) Edema: No Labs: CBC, BMP 09/05/17 06:30 09/05/17 06:30 INR, PTT INR 1.35 (0.82-1.09) H 09/04/17 06:35 Assessment/Plan The patient is an 86 yo m w/ PMH CHF, Afib, HTN who comes into the hospital c/o progressive weakness and cough for the past [address] chest shows b/l effusions. #Bilateral pleural effusions likely 2/2 CHF -s/p US guided thoracentesis -pleural fluid studies indicate transudate; likely cardiac in origin -Lasix 40mg IV Daily -rpt CXR improved -Supplemental O2 as tolerated -monitor Hb s/p procedure
--- NOTE | 2017-09-05 15:42 | PN ---
Physical Exam: SUBJECTIVE: Patient seen and examined OBJECTIVE: Vital Signs Period Temp Pulse Resp BP Sys/Servin Pulse Ox Last 24 Hr 97.8 F-98.7 F 96-132 18-24 94-109/45-75 94-100 GENERAL: The patient is awake, alert, and fully oriented, in no acute distress. HEAD: Normal with no signs of trauma. EYES: PERRL, extraocular movements intact, sclera anicteric, conjunctiva clear. No ptosis. ENT: Ears normal, nares patent, oropharynx clear without exudates, moist mucous membranes. NECK: Trachea midline, full range of motion, supple. LUNGS: Breath sounds equal, clear to auscultation bilaterally, no wheezes, no crackles, no accessory muscle use. HEART: Regular rate and rhythm, S1, S2 without murmur, rub or gallop. ABDOMEN: Soft, nontender, nondistended, normoactive bowel sounds, no guarding, no rebound, no hepatosplenomegaly, no masses. EXTREMITIES: 2+ pulses, warm, well-perfused, no edema. NEUROLOGICAL: Cranial nerves II through XII grossly intact. Normal speech, gait not observed. PSYCH: Normal mood, normal affect. SKIN: Warm, dry, normal turgor, no rashes or lesions noted Laboratory Results - last 24 hr 09/01/17 09/04/17 09/04/17 22:15 14:00 15:00 WBC RBC Hgb Hct MCV MCH MCHC RDW Plt Count MPV Neutrophils % Lymphocytes % Monocytes % Eosinophils % Basophils % PTT (Actin FS) 34.5 H Sodium Potassium Chloride Carbon Dioxide Anion Gap BUN Creatinine Creat Clearance w eGFR Random Glucose Calcium Magnesium Total Bilirubin AST ALT Alkaline Phosphatase LD Total Creatine Kinase Troponin I Total Protein Albumin Pleural Neutrophils 21 Pleural Lymphocytes 30 Pleural Monocytes 3 Pleural Eosinophils 3 Pleural Macrophages 34 Pleural Mesothelial 9 Blood Type A POSITIVE Antibody Screen Negative Crossmatch See Detail 09/05/17 09/05/17 09/05/17 06:30 06:30 06:30 WBC 4.8 RBC 3.04 L Hgb 9.4 L D Hct 28.5 L MCV 93.8 MCH 31.1 MCHC 33.2 RDW 20.4 H Plt Count 195 MPV 7.8 Neutrophils % 84.5 H Lymphocytes % 9.4 D Monocytes % 4.3 Eosinophils % 1.3 Basophils % 0.5 PTT (Actin FS) Sodium 136 Potassium 4.1 Chloride 96 L Carbon Dioxide 35 H Anion Gap 5 L BUN 28 H Creatinine 1.1 Creat Clearance w eGFR > 60 Random Glucose 98 Calcium 8.6 Magnesium 2.2 Total Bilirubin 1.4 H D AST 42 H ALT 26 Alkaline Phosphatase 84 LD Total Creatine Kinase 64 Cancelled Troponin I 0.07 H D Cancelled Total Protein 7.0 Albumin 3.0 L Pleural Neutrophils Pleural Lymphocytes Pleural Monocytes Pleural Eosinophils Pleural Macrophages Pleural Mesothelial Blood Type Antibody Screen Crossmatch 09/05/17 11:40 WBC RBC Hgb Hct MCV MCH MCHC RDW Plt Count MPV Neutrophils % Lymphocytes % Monocytes % Eosinophils % Basophils % PTT (Actin FS) Sodium Potassium Chloride Carbon Dioxide Anion Gap BUN Creatinine Creat Clearance w eGFR Random Glucose Calcium Magnesium Total Bilirubin AST ALT Alkaline Phosphatase LD Total 391 H Creatine Kinase Troponin I Total Protein Albumin Pleural Neutrophils Pleural Lymphocytes Pleural Monocytes Pleural Eosinophils Pleural Macrophages Pleural Mesothelial Blood Type Antibody Screen Crossmatch Active Medications Generic Name Dose Route Start Last Admin Trade Name Freq PRN Reason Stop Dose Admin Acetaminophen 650 mg 09/01/17 00:39 09/04/17 21:21 Tylenol - PO 650 mg Q4H PRN Administration FEVER OR PAIN Albuterol/Ipratropium 1 amp 09/03/17 09:53 09/03/17 10:20 Duoneb - NEB 1 amp Q4H PRN Administration SHORTNESS OF BREATH Calcium Carbonate 500 mg 09/01/17 10:00 09/05/17 10:43 Os-Thomas 500mg - PO 500 mg BID NEIL Administration Carvedilol 6.25 mg 09/02/17 22:00 09/05/17 10:43 Coreg - PO 6.25 mg BID NEIL Administration Digoxin 0.125 mg 09/04/17 09:00 09/05/17 10:43 Lanoxin - PO 0.125 mg DAILY NEIL Administration Ferrous Sulfate 325 mg 09/01/17 10:00 09/05/17 10:43 Feosol - PO 325 mg DAILY NEIL Administration Furosemide 40 mg 09/03/17 10:00 09/05/17 10:46 Lasix Injection - IVPUSH 40 mg DAILY NEIL Administration Levothyroxine Sodium 100 mcg 09/01/17 07:00 09/05/17 07:00 Synthroid - PO 100 mcg AM NEIL Administration Multivitamins/Minerals/Vitamin C 1 tab 09/01/17 10:00 09/05/17 10:43 Tab-A-Vit - PO 1 tab DAILY NEIL Administration Mupirocin 1 applic 09/01/17 23:45 09/05/17 10:43 Bactroban 2% Ointment - TP 1 applic BID NEIL Administration Potassium Chloride 20 meq 09/02/17 22:00 09/05/17 10:44 Potassium Chloride Oral Liquid PO 20 meq BID NEIL Administration Senna/Docusate Sodium 1 tablet 09/03/17 02:00 09/05/17 10:43 Pericolace - PO 1 tablet BID NEIL Administration
--- NOTE | 2017-09-05 15:52 | PN ---
Physical Exam: SUBJECTIVE: Patient seen and examined. He states shoulder pain is better, he denies sob, cp conversing without issue. Event: - shoulder and cp overnight - Trop 0.07, repeat pending OBJECTIVE: Vital Signs Period Temp Pulse Resp BP Sys/Servin Pulse Ox Last 24 Hr 97.8 F-98.7 F 96-132 18-24 94-109/45-75 94-100 PE Neuro: alert, awake, cn 2-12intct HEENT: + JVD Pulm: diffuse basilar crackles, + BS +NC cV: s1 s2 irregular rhythm Abd: mild distention, soft nd Ext, warm, no le edema Laboratory Results - last 24 hr 09/05/17 09/05/17 09/05/17 06:30 06:30 06:30 WBC 4.8 RBC 3.04 L Hgb 9.4 L D Hct 28.5 L MCV 93.8 MCH 31.1 MCHC 33.2 RDW 20.4 H Plt Count 195 MPV 7.8 Neutrophils % 84.5 H Lymphocytes % 9.4 D Monocytes % 4.3 Eosinophils % 1.3 Basophils % 0.5 PTT (Actin FS) Sodium 136 Potassium 4.1 Chloride 96 L Carbon Dioxide 35 H Anion Gap 5 L BUN 28 H Creatinine 1.1 Creat Clearance w eGFR > 60 Random Glucose 98 Calcium 8.6 Magnesium 2.2 Total Bilirubin 1.4 H D AST 42 H ALT 26 Alkaline Phosphatase 84 LD Total Creatine Kinase 64 Cancelled Troponin I 0.07 H D Cancelled Total Protein 7.0 Albumin 3.0 L Pleural Neutrophils Pleural Lymphocytes Pleural Monocytes Pleural Eosinophils Pleural Macrophages Pleural Mesothelial Blood Type Antibody Screen Crossmatch 09/05/17 11:40 LD Total 391 H Active Medications Generic Name Dose Route Start Last Admin Trade Name Freq PRN Reason Stop Dose Admin Acetaminophen 650 mg 09/01/17 00:39 09/04/17 21:21 Tylenol - PO 650 mg Q4H PRN Administration FEVER OR PAIN Albuterol/Ipratropium 1 amp 09/03/17 09:53 09/03/17 10:20 Duoneb - NEB 1 amp Q4H PRN Administration SHORTNESS OF BREATH Calcium Carbonate 500 mg 09/01/17 10:00 09/05/17 10:43 Os-Thomas 500mg - PO 500 mg BID NEIL Administration Carvedilol 6.25 mg 09/02/17 22:00 09/05/17 10:43 Coreg - PO 6.25 mg BID NEIL Administration Digoxin 0.125 mg 09/04/17 09:00 09/05/17 10:43 Lanoxin - PO 0.125 mg DAILY NEIL Administration Ferrous Sulfate 325 mg 09/01/17 10:00 09/05/17 10:43 Feosol - PO 325 mg DAILY NEIL Administration Furosemide 40 mg 09/03/17 10:00 09/05/17 10:46 Lasix Injection - IVPUSH 40 mg DAILY NEIL Administration Levothyroxine Sodium 100 mcg 09/01/17 07:00 09/05/17 07:00 Synthroid - PO 100 mcg AM NEIL Administration Multivitamins/Minerals/Vitamin C 1 tab 09/01/17 10:00 09/05/17 10:43 Tab-A-Vit - PO 1 tab DAILY NEIL Administration Mupirocin 1 applic 09/01/17 23:45 09/05/17 10:43 Bactroban 2% Ointment - TP 1 applic BID NEIL Administration Potassium Chloride 20 meq 09/02/17 22:00 09/05/17 10:44 Potassium Chloride Oral Liquid PO 20 meq BID NEIL Administration Senna/Docusate Sodium 1 tablet 09/03/17 02:00 09/05/17 10:43 Pericolace - PO 1 tablet BID NEIL Administration Assessment: 86 year old male with a PMH significant for HTN, HLD, afib on [place], biventricular systolic heart failure, severe TR, CVA (2010), right pleural effusion s/p thoracentesis (2014), and hypothyroidism admitted s/p fall. Plan: 1. Symptomatic anemia likely secondary to acute blood loss - Hgb stable, improved today - 2 units transfused - Ferrous sulfate daily - Pradaxa held 2. s/p fall with large hematoma formation - due to above 3. Mildly elevated trop - Repeat pending - Cardiology following 4. Pleural effusion, chronic - s/p Thoracentsis 09/04 - Transudative, due to CHF 5. Biventricular systolic heart failure Lasix 40mg IV daily Supplemental oxygen 6. Atrial Fibrillation, chronic - Pradaxa on hold, restart per heme and cardiology - Coreg 6.25mg BID - Digoxin 0.125mg 7. GILMER - Cr appears at baseline Visit type - Emergency Visit Emergency Visit: Yes ED Registration Date: 09/01/17 Care time: The patient presented to the Emergency Department on the above date and was hospitalized for further evaluation of their emergent condition. - New Patient This patient is new to me today: Yes Date on this admission: 09/05/17 - Critical Care Critical Care patient: No
[2017-09-05] MEDS ORDERED: FUROSEMIDE 40 MG TABLET (FP) PO SCH ×2 (17:00→17:15)
[2017-09-05] MEDS ORDERED: METOPROLOL SUCCINATE 50 MG TAB.SR.24H (FP) PO SCH (17:00)
--- NOTE | 2017-09-05 17:05 | PN ---
Progress Note, Physician History of Present Illness: Patient reports fatigue. Denies chest pain. - Current Medication List Current Medications: Active Medications Acetaminophen (Tylenol -) 650 mg PO Q4H PRN PRN Reason: FEVER OR PAIN Last Admin: 09/04/17 21:21 Dose: 650 mg Albuterol/Ipratropium (Duoneb -) 1 amp NEB Q4H PRN PRN Reason: SHORTNESS OF BREATH Last Admin: 09/03/17 10:20 Dose: 1 amp Calcium Carbonate (Os-Thomas 500mg -) 500 mg PO BID [facility] Last Admin: 09/05/17 10:43 Dose: 500 mg Digoxin (Lanoxin -) 0.125 mg PO DAILY [facility] Last Admin: 09/05/17 10:43 Dose: 0.125 mg Ferrous Sulfate (Feosol -) 325 mg PO DAILY [facility] Last Admin: 09/05/17 10:43 Dose: 325 mg Levothyroxine Sodium (Synthroid -) 100 mcg PO AM [facility] Last Admin: 09/05/17 07:00 Dose: 100 mcg Metoprolol Succinate (Toprol Xl -) 50 mg PO DAILY [facility] Multivitamins/Minerals/Vitamin C (Tab-A-Vit -) 1 tab PO DAILY [facility] Last Admin: 09/05/17 10:43 Dose: 1 tab Mupirocin (Bactroban 2% Ointment -) 1 applic TP BID [facility] Last Admin: 09/05/17 10:43 Dose: 1 applic Potassium Chloride (Potassium Chloride Oral Liquid) 20 meq PO BID [facility] Last Admin: 09/05/17 10:44 Dose: 20 meq Senna/Docusate Sodium (Pericolace -) 1 tablet PO BID [facility] Last Admin: 09/05/17 10:43 Dose: 1 tablet - Objective Vital Signs: Vital Signs Temperature 98.4 F 09/05/17 14:00 Pulse Rate 103 H 09/05/17 14:00 Respiratory Rate 18 09/05/17 10:00 Blood Pressure 106/57 09/05/17 14:00 O2 Sat by Pulse Oximetry (%) 94 L 09/05/17 09:00 Constitutional: Yes: No Distress Eyes: Yes: Conjunctiva Clear, EOM Intact HENT: Yes: Atraumatic, Normocephalic Cardiovascular: Yes: Tachycardia, Pulse Irregular, JVD Respiratory: Yes: CTA Bilaterally Gastrointestinal: Yes: Normal Bowel Sounds, Soft. No: Tenderness Edema: Yes Neurological: Yes: Alert, Oriented Psychiatric: Yes: Alert, Oriented Labs: CBC, BMP 09/05/17 06:30 09/05/17 06:30 INR, PTT INR 1.35 (0.82-1.09) H 09/04/17 06:35 - ....Imaging Chest X-ray: Report Reviewed (09/04/17 CXR: No pneumothorax. No effusions.) Assessment/Plan 86 yo male with chronic afib, severe pulm HTN with RV failure (per 10/2016 echo) & LVEF 50%, and right pleural effusion s/p thoracentesis on 09/04/17 with removal of 1200 cc of fluid. Dypsnea improved s/p thoracentesis but continues to report fatigue, however, this is likely due to symptomatic anemia as patient does not appear grossly volume overloaded with clear lung recinos today. Afib with mildly elevated HR. Hgb stable. RECS: Will discontinue carvedilol and start metoprolol succinate 100 mg po daily for better afib rate control. Continue digoxin 0.125 mg po daily Will resume Pradaxa as Hgb is stable. Monitor Hgb/Hct. Of note, previously elevated INR with use of Pradaxa is not unusual and is not necessarily reflective of coagulopathy. Will discontinue IV furosemide and resume oral furosemide 80 mg po bid. Monitor lytes and renal function. Will repeat CXR tomorrow AM. Discharge planning as per hospitalist service. Patient may be discharged from cardiac standpoint if remains clinically stable. Plan was discussed with PICK UP OPERATOR.
[2017-09-05 17:10] LABS: TROPONIN I 0.06 ng/ml (0.00-0.05)
[2017-09-05] MEDS: DABIGATRAN ETEXILATE MESYLATE 150 MG CAPSULE PO SCH (18:34)
[2017-09-05] MEDS: METOPROLOL SUCCINATE 100 MG TAB.SR.24H (FP) PO SCH (18:34)
[2017-09-05] MEDS: POTASSIUM CHLORIDE TABS 20 MEQ TABLET.ER (FP) PO SCH (23:08)
[2017-09-06] MEDS: FUROSEMIDE 40 MG TABLET (FP) PO SCH ×2 (06:27→13:22)
[2017-09-06] MEDS: DABIGATRAN ETEXILATE MESYLATE 150 MG CAPSULE PO SCH ×2 (06:27→17:02)
[2017-09-06] MEDS: LEVOTHYROXINE NA 100 MCG TABLET (FP) PO SCH (06:27)
--- NOTE | 2017-09-06 06:53 | PN ---
Progress Note, Physician History of Present Illness: No new complains. Denies CP. Reports fatigue. - Current Medication List Current Medications: Active Medications Acetaminophen (Tylenol -) 650 mg PO Q4H PRN PRN Reason: FEVER OR PAIN Last Admin: 09/04/17 21:21 Dose: 650 mg Albuterol/Ipratropium (Duoneb -) 1 amp NEB Q4H PRN PRN Reason: SHORTNESS OF BREATH Last Admin: 09/03/17 10:20 Dose: 1 amp Calcium Carbonate (Os-Thomas 500mg -) 500 mg PO BID [facility] Last Admin: 09/05/17 23:08 Dose: 500 mg Dabigatran (Pradaxa -) 150 mg PO Q12H [facility] Last Admin: 09/06/17 06:27 Dose: 150 mg Ferrous Sulfate (Feosol -) 325 mg PO DAILY [facility] Last Admin: 09/05/17 10:43 Dose: 325 mg Furosemide (Lasix -) 80 mg PO BIDLASIX [facility] Last Admin: 09/06/17 06:27 Dose: 80 mg Levothyroxine Sodium (Synthroid -) 100 mcg PO AM [facility] Last Admin: 09/06/17 06:27 Dose: 100 mcg Metoprolol Succinate (Toprol Xl -) 100 mg PO DAILY [facility] Last Admin: 09/05/17 18:34 Dose: 100 mg Multivitamins/Minerals/Vitamin C (Tab-A-Vit -) 1 tab PO DAILY [facility] Last Admin: 09/05/17 10:43 Dose: 1 tab Mupirocin (Bactroban 2% Ointment -) 1 applic TP BID [facility] Last Admin: 09/05/17 23:08 Dose: 1 applic Potassium Chloride (K-Dur -) 20 meq PO BID [facility] Last Admin: 09/05/17 23:08 Dose: 20 meq Senna/Docusate Sodium (Pericolace -) 1 tablet PO BID [facility] Last Admin: 09/05/17 23:08 Dose: 1 tablet - Objective Vital Signs: Vital Signs Temperature 97.8 F 09/06/17 06:00 Pulse Rate 79 09/06/17 02:00 Respiratory Rate 20 09/06/17 06:00 Blood Pressure 100/54 09/06/17 06:00 O2 Sat by Pulse Oximetry (%) 98 09/05/17 20:58 Constitutional: Yes: Well Nourished, No Distress Eyes: Yes: Conjunctiva Clear, EOM Intact HENT: Yes: Atraumatic, Normocephalic Cardiovascular: Yes: Regular Rate and Rhythm. No: JVD, Murmur Respiratory: Yes: CTA Bilaterally Gastrointestinal: Yes: Normal Bowel Sounds, Soft. No: Tenderness Edema: Yes Edema: LLE: 1+, RLE: 1+ Neurological: Yes: Alert, Oriented, Cran Nerves II-XII Intact Psychiatric: Yes: WNL Labs: CBC, BMP 09/05/17 06:30 09/05/17 06:30 INR, PTT INR 1.35 (0.82-1.09) H 09/04/17 06:35 Assessment/Plan 86 yo male with chronic afib, severe pulm HTN with RV failure (per 10/2016 echo) & LVEF 50%, and right pleural effusion s/p thoracentesis on 09/04/17 with removal of 1200 cc of fluid. Dypsnea improved s/p thoracentesis but continues to report fatigue, however, this is likely due to symptomatic anemia as patient does not appear grossly volume overloaded with clear lung recinos today. Afib now adequately rate controlled. RECS: Will continue metoprolol succinate 100 mg po daily for afib rate control. HR 70- 80s currently. Will discontinue digoxin. Continue Pradaxa. Monitor Hgb/Hct. Continue furosemide 80 mg po bid. Monitor lytes and renal function. Will repeat CXR pend this AM. Recommend assessment by PT prior to discharge. Patient may be discharged from cardiac standpoint if his labs are stable today. Patient needs follow-up in our office with Dr. Knox in 1-2 weeks. Will see prn. Please call with questions.
[2017-09-06 07:19] LABS: BASOPHIL 0.4 % (0-2.0); MCH 31.5 pg (25.7-33.7); MCHC 33.9 g/dl (32.0-35.9); MEAN PLT VOLUME 7.7 fl (7.5-11.1); NEUTROPHILS 78.2 % (42.8-82.8); PLATELET COUNT 183 K/MM3 (134-434); RDW 20.4 % (11.9-15.9); WHITE BLOOD COUNT 4.7 K/mm3 (4.0-10.0)
[2017-09-06 07:52] LABS: ANION GAP 5 (8-16); CALCIUM 8.2 mg/dL (8.5-10.1); CO2 32 mmol/L (21-32); CREATININE 1.1 mg/dL (0.7-1.3); GLUCOSE,RANDOM 91 mg/dL (74-106); MAGNESIUM 2.3 mg/dL (1.8-2.4)
[2017-09-06] MEDS: SENNOSIDES/DOCUSATE COMBO (SENNA PLUS) TABLET (UD) PO SCH (10:09)
[2017-09-06] MEDS: MULTIVITAMINS (DAILY MVI) TABLET (FP) PO SCH (10:09)
[2017-09-06] MEDS: FERROUS SO4 325 MG TABLET (FP) PO SCH (10:09)
[2017-09-06] MEDS: CALCIUM (OYSTER SHELL) 500 MG TABLET (FP) PO SCH (10:09)
[2017-09-06] MEDS: MUPIROCIN 2% TOPICAL OINTMENT 22 GM TUBE TP SCH (10:10)
[2017-09-06] MEDS: POTASSIUM CHLORIDE TABS 20 MEQ TABLET.ER (FP) PO SCH (10:10)
[2017-09-06] MEDS: METOPROLOL SUCCINATE 100 MG TAB.SR.24H (FP) PO SCH (10:10)
--- NOTE | 2017-09-06 10:59 | PN ---
Teaching Attending Note Name of Resident: Aníbal Lehman ATTENDING PHYSICIAN STATEMENT I saw and evaluated the patient. I reviewed the resident's note and discussed the case with the resident. I agree with the resident's findings and plan as documented. PULMONARY ALERT,NAD,-SOB,-CP,-COUGH IMP ACUTE ON CHRONIC CHF IMPROVED RAPID AFIB R PLEURAL EFFUSION LTRANSUDATE. S/P FALL H/O CVA PULMONARY HTN ANEMIA GILMER H/O GI BLEED PLAN LASIX PO AC DR CLAROS Problem List - Problems (1) Congestive heart failure (CHF) Code(s): I50.9 - HEART FAILURE, UNSPECIFIED Qualifiers: Congestive heart failure type: systolic Congestive heart failure chronicity : acute on chronic Qualified Code(s): I50.23 - Acute on chronic systolic ( congestive) heart failure (2) Acute exacerbation of CHF (congestive heart failure) Code(s): I50.9 - HEART FAILURE, UNSPECIFIED (3) Atrial fibrillation Code(s): I48.91 - UNSPECIFIED ATRIAL FIBRILLATION (4) Pleural effusion Code(s): J90 - PLEURAL EFFUSION, NOT ELSEWHERE CLASSIFIED (5) Anemia Code(s): D64.9 - ANEMIA, UNSPECIFIED (6) H/O: CVA (cerebrovascular accident) Code(s): Z86.73 - PRSNL HX OF TIA (TIA), AND CEREB INFRC W/O RESID DEFICITS (7) Atrial fibrillation with rapid ventricular response Code(s): I48.91 - UNSPECIFIED ATRIAL FIBRILLATION (8) Acute kidney injury Code(s): N17.9 - ACUTE KIDNEY FAILURE, UNSPECIFIED Problem List - Problems (1) Congestive heart failure (CHF) Code(s): I50.9 - HEART FAILURE, UNSPECIFIED Qualifiers: Congestive heart failure type: systolic Congestive heart failure chronicity : acute on chronic Qualified Code(s): I50.23 - Acute on chronic systolic ( congestive) heart failure (2) Acute exacerbation of CHF (congestive heart failure) Code(s): I50.9 - HEART FAILURE, UNSPECIFIED (3) Atrial fibrillation Code(s): I48.91 - UNSPECIFIED ATRIAL FIBRILLATION (4) Pleural effusion Code(s): J90 - PLEURAL EFFUSION, NOT ELSEWHERE CLASSIFIED (5) Anemia Code(s): D64.9 - ANEMIA, UNSPECIFIED (6) H/O: CVA (cerebrovascular accident) Code(s): Z86.73 - PRSNL HX OF TIA (TIA), AND CEREB INFRC W/O RESID DEFICITS (7) Atrial fibrillation with rapid ventricular response Code(s): I48.91 - UNSPECIFIED ATRIAL FIBRILLATION (8) Acute kidney injury Code(s): N17.9 - ACUTE KIDNEY FAILURE, UNSPECIFIED
--- NOTE | 2017-09-06 12:46 | DS ---
Physical Exam: SUBJECTIVE: Patient seen and examined. He appears and feels much better today, less weak. He is open for SNF. OBJECTIVE: Vital Signs Period Temp Pulse Resp BP Sys/Servin Pulse Ox Last 24 Hr 97.8 F-98.8 F 53-110 18-20 100-106/52-63 93-98 PE Neuro: alert, awake, cn 2-12intct Pulm: diffuse basilar crackles, + BS +NC cV: s1 s2 irregular rhythm, regular rate Abd: mild distention, soft nd Ext, warm, RLE edema +1, LLE +1 Skin: R lateral pelvic region hematoma Laboratory Results - last 24 hr 09/05/17 09/06/17 09/06/17 14:20 05:05 05:05 WBC 4.7 RBC 2.83 L Hgb 8.9 L Hct 26.3 L MCV 93.0 MCH 31.5 MCHC 33.9 RDW 20.4 H Plt Count 183 MPV 7.7 Neutrophils % 78.2 Lymphocytes % 14.4 D Monocytes % 6.0 Eosinophils % 1.0 Basophils % 0.4 Sodium 133 L Potassium 4.3 Chloride 96 L Carbon Dioxide 32 Anion Gap 5 L BUN 30 H Creatinine 1.1 Random Glucose 91 Calcium 8.2 L Magnesium 2.3 Creatine Kinase 62 Troponin I 0.06 H HOSPITAL COURSE: Date of Admission:09/01/17 Date of Discharge: 09/06/17 Minutes to complete discharge: 37 Discharge Summary Reason For Visit: WEAKNESS, FELL, SOB Current Active Problems Acute kidney injury (Acute) Anemia (Acute) Congestive heart failure (CHF) (Acute) H/O: CVA (cerebrovascular accident) (Acute) Hospital Course: Initial Hospital Course: Briefly, this 86 year old male with past medical history of A. fib, HTN, CHF, CVA 2010 (switched from coumadin to paradaxa- @ [facility]), DEEPTHI, who presented to the ED with 2 weeks of generalized weakness and decreased exercise tolerance. Patient started feeling generally fatigued with generalized weakness and dry cough approximately 2 weeks ago. He saw his primary doctor who has treated him for bronchitis with both Augmentin and a Z-Davey. Symptoms did not resolve. The patient was taking his Lasix or Zaroxolyn for the past week due to the fact that he has had many errands to run and did not want to have to void well in public. He was only able to walk approximately 20 feet before becoming increasingly short of breath. Patient is unable to walk up inclines or upstairs. Of note: Rectal bleeding earlier in year, seen at [facility] and had upper and lower endoscopy evidencing DU and hemorrhoid per pt. H2 lauren and prevacid instituted. Subsequent Hospital Course/Progress Note/DC Summary: Assessment: 86 year old male with a PMH significant for HTN, HLD, afib on dagitriban, biventricular systolic heart failure, severe TR, CVA (2010), right pleural effusion s/p thoracentesis (2014), and hypothyroidism admitted s/p fall. Plan: 1. Symptomatic anemia 2/2 acute blood loss in setting of pradaxa induced coagulopathy - Hgb stable on discharge - 1 unit transfused 09/02 - Continue ferrous sulfate daily 2. s/p fall with large hematoma formation - due to above 3. Mildly elevated trop - Less likely ACS, trop down trended 4. Pleural effusion, chronic - s/p Thoracentsis 09/04 - Transudative, due to CHF 5. Acute on chronic Biventricular systolic heart failure - Changed Lasix 80mg BID - s/p IV diuresis 6. Atrial Fibrillation, chronic - Restart pradaxa - Changed to Toprol xl 100mg daily - Stop coreg, stop dig - Cardiology follow up in 1-2 weeks 7. GILMER - Cr appears at baseline 8. Iron deficiency anemia - On ferrous sulfate Dispo: - Transfer to SNF, referral information enclosed, meds as above - PT aware and agrees to above plan Condition: Stable - Instructions Diet, Activity, Other Instructions: Please return to the ED for any new, persistent, or worsening symptoms. Follow up with your PCP in 1 week Take new medications lasix 80mg twice a day and Metoprolol XL 100mg daily as directed Resume home meds, restarted pradaxa Follow up with [facility] Knox in 1-2 week (referral information enclosed) Referrals: Brian Polo MD [Primary Care Provider] - Dyan Knox MD [Staff Physician] - 2 Weeks Disposition: LONGTERM FACILITY - Home Medications Comprehensive Discharge Medication List: Ambulatory Orders Calcium Carbonate [Calcium] 500 mg PO BID tablet 11/06/14 Multivitamin [Daily Vitamin] 1 each PO DAILY tablet 11/06/14 [place]-3/Dha/Epa/Lut/Zeaxanthin [[facility] Softgel] 1 each PO 2 CAPS BID capsule 04/26/17 Ferrous Sulfate 325 mg PO DAILY 08/31/17 Furosemide [Lasix] 80 mg PO BID #60 tablet 09/06/17 Metoprolol Succinate [Toprol Xl -] 100 mg PO DAILY #30 tab.sr.24h 09/06/17 This patient is new to me today: No Emergency Visit: Yes ED Registration Date: 09/01/17 Care time: The patient presented to the Emergency Department on the above date and was hospitalized for further evaluation of their emergent condition. Critical Care patient: No - Discharge Referral Referred to [facility] Med P.C.: No
--- NOTE | 2017-09-06 14:10 | PN ---
Progress Note, Physician History of Present Illness: Pulmonary follow up consultation Patient seen and examined at bedside. He states that he feels much better today. Patient had elevated troponins to .07 yesterday which have since peaked. His shoulder pain has resolved. Patient is for discharge today - Current Medication List Current Medications: Active Medications Acetaminophen (Tylenol -) 650 mg PO Q4H PRN PRN Reason: FEVER OR PAIN Last Admin: 09/04/17 21:21 Dose: 650 mg Albuterol/Ipratropium (Duoneb -) 1 amp NEB Q4H PRN PRN Reason: SHORTNESS OF BREATH Last Admin: 09/03/17 10:20 Dose: 1 amp Calcium Carbonate (Os-Thomas 500mg -) 500 mg PO BID [facility] Last Admin: 09/06/17 10:09 Dose: 500 mg Dabigatran (Pradaxa -) 150 mg PO Q12H [facility] Last Admin: 09/06/17 06:27 Dose: 150 mg Ferrous Sulfate (Feosol -) 325 mg PO DAILY [facility] Last Admin: 09/06/17 10:09 Dose: 325 mg Furosemide (Lasix -) 80 mg PO BIDLASIX [facility] Last Admin: 09/06/17 13:22 Dose: 80 mg Levothyroxine Sodium (Synthroid -) 100 mcg PO AM [facility] Last Admin: 09/06/17 06:27 Dose: 100 mcg Metoprolol Succinate (Toprol Xl -) 100 mg PO DAILY [facility] Last Admin: 09/06/17 10:10 Dose: 100 mg Multivitamins/Minerals/Vitamin C (Tab-A-Vit -) 1 tab PO DAILY [facility] Last Admin: 09/06/17 10:09 Dose: 1 tab Mupirocin (Bactroban 2% Ointment -) 1 applic TP BID [facility] Last Admin: 09/06/17 10:10 Dose: 1 applic Potassium Chloride (K-Dur -) 20 meq PO BID [facility] Last Admin: 09/06/17 10:10 Dose: 20 meq Senna/Docusate Sodium (Pericolace -) 1 tablet PO BID [facility] Last Admin: 09/06/17 10:09 Dose: 1 tablet - Objective Vital Signs: Vital Signs Temperature 97.8 F 09/06/17 06:00 Pulse Rate 53 L 09/06/17 11:03 Respiratory Rate 20 09/06/17 06:00 Blood Pressure 100/54 09/06/17 06:00 O2 Sat by Pulse Oximetry (%) 93 L 09/06/17 11:03 Constitutional: Yes: Well Nourished, No Distress, Calm HENT: Yes: Atraumatic, Normocephalic Cardiovascular: Yes: Pulse Irregular, S1, S2. No: Bruit, JVD, Gallop, Murmur, Rub, S3, S4 Respiratory: Yes: Regular, Other (left lung clear to auscultation. Decreased breath sounds at right base.) Edema: No Labs: CBC, BMP 09/06/17 05:05 09/06/17 05:05 INR, PTT INR 1.35 (0.82-1.09) H 09/04/17 06:35 Assessment/Plan The patient is an 86 yo m w/ PMH CHF, Afib, HTN who comes into the hospital c/o progressive weakness and cough for the past [address] chest showed b/l effusions. Patient is rapidly improving after diuresis and thoracentesis. #Bilateral pleural effusions likely 2/2 CHF -patient improved on current treatment -pleural fluid studies indicate transudate; likely cardiac in origin -Transition to PO Lasix -will require anticoagulation as outpatient
--- NOTE | 2017-09-06 18:52 | PN ---
Progress Note (short form) - Note Progress Note: Pt seen at [facility] He noted he awaiting d/c to [facility] He noted that pradaxa was to be re-instituted Reports feeling better PE in chair, NAD lungs- sl dec bilat CVS-irreg S1S2 abd-soft ext-no edema skin- R flank hematoma clearing at superior margin and appears to be some more tracking inferiorly along lat thigh and c/w old blood(dark) Imp: coagulopathy and hematoma in setting of pradaxa use. Has not required further transfusion and coags improved. High risk for thrombosis and bleeding As elaborated previoulsy, f/u w PMD and obtain CT to assess hematoma regression in addn to characterizing the mesenteric "mass" noted. Pt is aware of this
[2017-09-06 19:30] VITALS: BP 96/50; PULSE 83; TEMP 98.8
--- NOTE | 2017-09-07 16:24 | PATH ---
Cytology Non-Gynecological Report Patient Name: VELMA JACOBSEN [facility]. Rec. #: [id number] /Age/Gender: 1930 (Age: 86) / M Account: [id number] Location: 4 W TELEMETRY U Taken: 09/04/2017 Received: 09/05/2017 Reported: 09/07/2017 Physicians: Julien Hanson Specimen(s) Received A: RIGHT LOWER PLEURAL FLUID B: RIGHT LOWER PLEURAL FLUID Clinical History Pleural effusion Final Diagnosis A & B. PLEURAL FLUID, RIGHT LOWER, THORACENTESIS: SATISFACTORY FOR EVALUATION. NEGATIVE FOR MALIGNANT CELLS. REACTIVE MESOTHELIAL CELLS AND LYMPHOCYTES PRESENT. Comment: Immunohistochemical stains performed at [place], [place] ([id number]) and interpreted at [facility] show the cells are positive for D2-40 and focally for calretinin, while negative for MOC31. Focal weak staining for JEROME is noted. Pedrito-Ep4 is non-contributory due to high background staining. The above immunophenotype supports the diagnosis. Medical chart reviewed. Prior material is noted. Electronically Signed Larisa Gunter M.D. Gross Description A. Approximately 50 cc of yellow fluid received fixed in 50% alcohol. Two cytofunnels and one cellblock prepared. B. Approximately 1200 cc of yellow fluid received fresh. Two cytofunnels and one cellblock prepared.
== END 2017-09-06 18:07 | DRG 813 ==
LOC: FER 21:50 → FM/S 09-01 00:50 → OBSVTOIN 09-01 22:18 → J4W 09-03 23:10
PROVIDERS: ADMIT Internal Medicine; ATTEND Nurse Practitioner Acute Care
PROC: 30233N1 Transfusion of Nonautologous Red Blood Cells into Peripheral Vein, Percutaneous Approach (ICD-10-PCS; 2017-09-01)
PROC: 0W993ZX Drainage of Right Pleural Cavity, Percutaneous Approach, Diagnostic (ICD-10-PCS; principal; 2017-09-04)
DX: D68.32 Hemorrhagic disorder due to extrinsic circulating anticoagulants (principal); I50.23 Acute on chronic systolic (congestive) heart failure; N17.9 Acute kidney failure, unspecified; E87.1 Hypo-osmolality and hyponatremia; D62 Acute posthemorrhagic anemia; J90 Pleural effusion, not elsewhere classified; E87.3 Alkalosis; I48.2 Chronic atrial fibrillation; E78.00 Pure hypercholesterolemia, unspecified; E03.9 Hypothyroidism, unspecified; S20.221A Contusion of right back wall of thorax, initial encounter; I11.0 Hypertensive heart disease with heart failure; S31.113A Laceration without foreign body of abdominal wall, right lower quadrant without penetration into peritoneal cavity, initial encounter; E87.6 Hypokalemia; I95.1 Orthostatic hypotension; K21.9 Gastro-esophageal reflux disease without esophagitis; K64.8 Other hemorrhoids; K27.9 Peptic ulcer, site unspecified, unspecified as acute or chronic, without hemorrhage or perforation; M19.90 Unspecified osteoarthritis, unspecified site; I27.20 Pulmonary hypertension, unspecified; S70.01XA Contusion of right hip, initial encounter; I07.1 Rheumatic tricuspid insufficiency; T45.515A Adverse effect of anticoagulants, initial encounter; D50.8 Other iron deficiency anemias; W06.XXXA Fall from bed, initial encounter; Y92.098 Other place in other non-institutional residence as the place of occurrence of the external cause; Y93.89 Activity, other specified; Z96.643 Presence of artificial hip joint, bilateral; Z86.73 Personal history of transient ischemic attack (TIA), and cerebral infarction without residual deficits; Z85.828 Personal history of other malignant neoplasm of skin
CPT/HCPCS: 36415; 36430; 71010-TC; 71250-TC; 74176-TC; 76942; 80048; 80053; 80076; 81003; 81015; 82042; 82150; 82272; 82438; 82550; 82553; 82945; 83615; 83735; 83880; 84100; 84132; 84157; 84311; 84478; 84484; 85025; 85610; 85730; 86850; 86900; 86901; 86922; 87070; 87075; 87102; 87116; 87205; 87206; 87210; 88108; 88305-TC; 89051; 93005; 93010; 94640; 97116-GP; 97161-GP; 99285-25; G0378; P9038; P9058

== ENCOUNTER 2017-11-10 13:13 | Inpatient (IN) | payer OTHER ==
--- NOTE | 2017-11-10 13:31 | PDOC ---
History of Present Illness - General Stated Complaint: RT LOWER LEG WOUND Time Seen by Provider: 11/10/17 13:28 - History of Present Illness Initial Comments: 11/10/17 15:47 Chief complaint: Pain and swelling right leg History of present illness: Patient complains of increased swelling, redness, and pain in his right calf for 3 days. He has chronic edema due to CHF and he is taking multiple diuretics. The leg is weeping, with serosanguineous drainage , and shallow ulcerations Review of systems: No fever/chills, URI symptoms, sore throat, cough, chest pain , shortness of breath, abdominal pain, nausea, vomiting, diarrhea, visual or focal neurologic symptoms, unsteadiness of gait. The patient has been ambulating less then usual for the past few days due to. And swelling in the leg Past medical history: Atrial fibrillation, congestive heart failure, chronic dependent edema. Abdominal hernia repairs, hip replacements bilaterally. Medications: As noted Social history: Lives with his , who is in good health. No tobacco alcohol or nonprescription drugs. Ambulates on a limited basis. Predominantly cares for himself Family history: Reviewed and significant for father who of DC in his 70s, otherwise negative Physical exam: Alert oriented no acute distress cooperative Afebrile, vital signs normal HEENT clear Neck supple without bruit mass or nodes Chest exam reveals bibasilar rales and dullness to percussion at both bases CV S1 and S1 and S2 without murmur rub or gallop pulses full and symmetric no JVD no bruits. There is bilateral edema of the lower extremities, however, much worse on the right Abdomen soft nontender without mass or organomegaly Extremities: There is massive edema of the right calf, with severe erythema, shallow ulcerations, and weeping. There is tenderness to palpation over the entire inflamed area. Neurological intact Impression: Cellulitis superimposed on chronic edema, congestive heart failure Plan: CBC, chemistries, wound and blood cultures, empiric antibiotics, admit for intravenous therapy and infectious disease consultation. Past History - Past Medical History Allergies/Adverse Reactions: Allergies Allergy/AdvReac Type Severity Reaction Status Date / Time No Known Allergies Allergy Verified 11/10/17 13:37 Home Medications: Ambulatory Orders Calcium Carbonate [Calcium] 500 mg PO BID tablet 11/06/14 Multivitamin [Daily Vitamin] 1 each PO DAILY tablet 11/06/14 [place]-3/Dha/Epa/Lut/Zeaxanthin [[facility] Softgel] 1 each PO 2 CAPS BID capsule 04/26/17 Ferrous Sulfate 325 mg PO DAILY 08/31/17 Furosemide [Lasix] 80 mg PO BID #60 tablet 09/06/17 Metoprolol Succinate [Toprol Xl -] 100 mg PO DAILY #30 tab.sr.24h 09/06/17 Cephalexin 250 mg PO TID 11/10/17 Metolazone [Zaroxolyn -] 5 mg PO BID 11/10/17 Anemia: No Asthma: No Cancer: Yes (Skin) Cardiac Disorders: Yes (atrial fibrillation) CVA: Yes ([id number] weakness) COPD: No CHF: Yes Dementia: No Diabetes: No GI Disorders: No Disorders: No HTN: No Hypercholesterolemia: Yes Liver Disease: No Seizures: No Thyroid Disease: Yes - Surgical History Abdominal Surgery: Yes (Colon Resection) Appendectomy: No Cardiac Surgery: No Cholecystectomy: No GI Surgery: Yes (large intestine) Lung Surgery: Yes (Thorocentesis 10/2014) Neurologic Surgery: No Orthopedic Surgery: Yes (MAMIE HIP REPLACEMENT) - Suicide/Smoking/Psychosocial Hx Smoking History: Never smoked Have you smoked in the past 12 months: No Hx Alcohol Use: No Drug/Substance Use Hx: No Substance Use Type: None Hx Substance Use Treatment: No ED Treatment Course - LABORATORY CBC & Chemistry Diagram: 11/10/17 14:27 11/10/17 14:15 *DC/Admit/Observation/Transfer Diagnosis at time of Disposition: Cellulitis Qualifiers: Site of cellulitis: extremity Site of cellulitis of extremity: lower extremity Laterality: right Qualified Code(s): L03.115 - Cellulitis of right lower limb - Discharge Dispostion Admit: Yes - Referrals - Patient Instructions - Post Discharge Activity
[2017-11-10 15:05] LABS: BASO % 0.2 % (0-2.0); EOS % 0.3 % (0-4.5); HEMATOCRIT 34.3 % (35.4-49); HEMOGLOBIN 11.8 GM/dl (11.7-16.9); LYMPH % 7.5 % (8-40); MCH 33.1 pg (25.7-33.7); MCHC 34.2 g/dl (32.0-35.9); MEAN CELL VOLUME 96.8 fl (80-96); MEAN PLT VOLUME 8.6 fl (7.5-11.1); MONO % 5.5 % (3.8-10.2); NEUT % 86.5 % (42.8-82.8); PLATELET COUNT 197 K/MM3 (134-434); RBC 3.55 M/mm3 (4.00-5.60); RDW 17.2 % (11.9-15.9); WHITE BLOOD COUNT 6.4 K/mm3 (4.0-10.8)
[2017-11-10 15:13] LABS: PH,URINE 7.5 (4.5-8); URINE APPEARANCE Clear; URINE BILIRUBIN Negative (NEGATIVE); URINE BLOOD Negative (NEGATIVE); URINE COLOR YELLOW; URINE GLUCOSE (UA) Negative (NEGATIVE); URINE KETONE Negative (NEGATIVE); URINE LEUK ESTERASE Negative (NEGATIVE); URINE NITRITE Negative (NEGATIVE); URINE PROTEIN Negative (NEGATIVE); URINE UROBILINOGEN 0.2 (0.2-1.0)
[2017-11-10] MEDS ORDERED: VANCOMYCIN 750 MG in DEXTROSE 5%-WATER - 250 ML IVPB ONE (15:20)
[2017-11-10 15:31] LABS: ALBUMIN 3.4 g/dl (3.5-5.0); ALK PHOS 116 U/L (32-92); ANION GAP 10 (8-16); BLOOD UREA NITROGEN 50 mg/dl (7-18); CHLORIDE 86 mmol/L (98-107); CO2 33 mmol/L (22-28); CREATININE 1.3 mg/dl (0.6-1.3); GLUCOSE,RANDOM 97 mg/dl (74-106); SGOT/AST 108 U/L (10-42); SGPT/ALT 35 U/L (10-40); SODIUM 129 mmol/L (136-145); TOT PROT 7.7 g/dl (6.4-8.3)
[2017-11-10] MEDS ORDERED: VANCOMYCIN 1,000 MG VIAL (RESTRICTED TO ID ONLY) ONE (15:49)
[2017-11-10] MEDS ORDERED: SODIUM CHLORIDE 1,000 ML IV SCH (16:45)
--- NOTE | 2017-11-10 16:45 | HP ---
Admitting History and Physical - Primary Care Physician PCP: Brian Polo - Admission Chief Complaint: RLE swelling, redness History of Present Illness: Assessment: 86 year old male pMHx significant for HTN, HLD, afib on dagitriban, biventricular systolic heart failure, severe TR, CVA (2010), right pleural effusion s/p thoracentesis (2014), and hypothyroidism presented to the ED after 1 week of worsening RLE edema, erythema, and weeping leg. 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 Polo in the office and was placed on PO antibiotics. He returned to the ED today with worsening erythema, swelling and weeping. He denies fever, chills, sob, nausea, vomiting. 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: CVA (2010, right distal MCA occlusion) Cardiovascular: Yes: AFIB, CHF (mild LV systolic dysunction, moderate RV systolic dysfunction), Hyperlipdemia, Pulmonary Hypertension, Other ( pericarditis 1980) Gastrointestinal: Yes: GERD, Hemorrhoids, Peptic Ulcer Disease Renal/: Yes: BPH Musculoskeletal: Yes: Osteoarthritis Endocrine: Yes: Hypothyroidism - Past Surgical History Past Surgical History: Yes: Colectomy (partial colectomy for volvulus), Hernia Repair (Left repair 10/2014), Joint Replacement (bilateral THRs 1991), Prostatectomy (1979), Vasectomy (1979) - Smoking History Smoking history: Never smoked Have you smoked in the past 12 months: No - Alcohol/Substance Use Hx Alcohol Use: No History of Substance Use: reports: None - Social History Usual Living Arrangement: Yes: With Spouse ADL: Independent Home Medications - Allergies Allergies/Adverse Reactions: Allergies Allergy/AdvReac Type Severity Reaction Status Date / Time No Known Allergies Allergy Verified 11/10/17 13:37 - Home Medications Home Medications: Ambulatory Orders Calcium Carbonate [Calcium] 500 mg PO BID tablet 11/06/14 Multivitamin [Daily Vitamin] 1 each PO DAILY tablet 11/06/14 [place]-3/Dha/Epa/Lut/Zeaxanthin [[facility] Softgel] 1 each PO 2 CAPS BID capsule 04/26/17 Ferrous Sulfate 325 mg PO DAILY 08/31/17 Furosemide [Lasix] 80 mg PO BID #60 tablet 09/06/17 Metoprolol Succinate [Toprol Xl -] 100 mg PO DAILY #30 tab.sr.24h 09/06/17 Cephalexin 250 mg PO TID 11/10/17 Metolazone [Zaroxolyn -] 5 mg PO BID 11/10/17 Family Disease History - Family Disease History Family Disease History: Heart Disease: Father (heart disease 72), Other: Mother (ca pancreas 89) Review of Systems - Review of Systems Constitutional: reports: No Symptoms Eyes: reports: No Symptoms HENT: reports: No Symptoms Neck: reports: No Symptoms Cardiovascular: reports: No Symptoms Respiratory: reports: No Symptoms Gastrointestinal: reports: No Symptoms Genitourinary: reports: No Symptoms Musculoskeletal: reports: No Symptoms Integumentary: reports: Erythema, Wound Neurological: reports: No Symptoms Endocrine: reports: No Symptoms Hematology/Lymphatic: reports: No Symptoms Psychiatric: reports: No Symptoms Physical Examination Vital Signs: Vital Signs Temperature 98.1 F 11/10/17 13:14 Pulse Rate 94 H 11/10/17 13:14 Respiratory Rate 20 11/10/17 13:14 Blood Pressure 109/66 11/10/17 13:14 O2 Sat by Pulse Oximetry (%) 96 11/10/17 14:00 Constitutional: Yes: Well Nourished Eyes: Yes: Conjunctiva Clear HENT: Yes: Atraumatic Neck: Yes: Supple Cardiovascular: Yes: Pulse Irregular, S1, S2 Respiratory: Yes: Regular, CTA Bilaterally Gastrointestinal: Yes: Normal Bowel Sounds, Soft Renal/: Yes: WNL Musculoskeletal: Yes: WNL Extremities: Yes: Erythema (RLE, edema, erythema) Edema: Yes Edema: RLE: 3+ Peripheral Pulses WNL: Yes Integumentary: Yes: Erythema, Other (RLE edema, erythema, reddness, wheeping) Neurological: Yes: Alert, Oriented, Cran Nerves II-XII Intact Labs: CBC, BMP 11/10/17 14:27 11/10/17 14:15 Imaging - Results Ultrasound: Report Reviewed (11/07 US done negative for DVT) Problem List - Problems (1) Cellulitis Code(s): L03.90 - CELLULITIS, UNSPECIFIED Qualifiers: Site of cellulitis: extremity Site of cellulitis of extremity: lower extremity Laterality: right Qualified Code(s): L03.115 - Cellulitis of right lower limb (2) Atrial fibrillation Code(s): I48.91 - UNSPECIFIED ATRIAL FIBRILLATION (3) Benign prostate hyperplasia Code(s): N40.0 - BENIGN PROSTATIC HYPERPLASIA WITHOUT LOWER URINRY TRACT SYMP (4) Congestive heart failure (CHF) Code(s): I50.9 - HEART FAILURE, UNSPECIFIED (5) Hypothyroidism Code(s): E03.9 - HYPOTHYROIDISM, UNSPECIFIED Assessment/Plan Assessment: 86 year old male pMHx significant for HTN, HLD, afib on dagitriban, biventricular systolic heart failure, severe TR, CVA (2010), right pleural effusion s/p thoracentesis (2014), and hypothyroidism admitted with RLE cellulitis Plan: 1. RLE cellulitis - R leg xray r/o luarel - Repeat RLE US - ID to evaluate for abx 2. Acute on chronic Biventricular systolic heart failure - Hold Lasix 80mg BID and metolazone until AM, revaluate electrolytes 3. Atrial Fibrillation, chronic - Resume Pradaxa - Continue Toprol xl 100mg daily - Recent cardiology follow up with Dr. Knox this past Monday 4. Hypothyroid - Continue synthorid 5. GILMER - Cr around baseline 6. Iron deficiency anemia - On ferrous sulfate Visit type - Emergency Visit Emergency Visit: Yes ED Registration Date: 11/10/17 Care time: The patient presented to the Emergency Department on the above date and was hospitalized for further evaluation of their emergent condition. - New Patient This patient is new to me today: Yes Date on this admission: 11/10/17 - Critical Care Critical Care patient: No
[2017-11-10] MEDS ORDERED: POTASSIUM CHLORIDE TABS 20 MEQ TABLET.ER (FP) PO ONE ×2 (16:47→16:56)
--- NOTE | 2017-11-10 16:58 | CON.ID ---
Consult Consult Specialty:: infectious diseases Reason for Consultation:: rt leg cellulitis - History of Present Illness Chief Complaint: swelling of the rt leg and erythema of the leg with weeping History of Present Illness: 86 year old male pMHx significant for HTN, HLD, afib on dagit[place], biventricular systolic heart failure, severe TR, CVA (2010), right pleural effusion s/p thoracentesis , and hypothyroidism presented to the ED after 1 week of worsening RLE edema, erythema, and weeping leg. 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: CVA (2010, right distal MCA occlusion) Cardio/Vascular: Yes: AFIB, CHF (mild LV systolic dysunction, moderate RV systolic dysfunction), Hyperlipdemia, Pulmonary Hypertension, Other ( pericarditis 1980) Gastrointestinal: Yes: GERD, Hemorrhoids, Peptic Ulcer Disease Renal/: Yes: BPH Musculoskeletal: Yes: Osteoarthritis Endocrine: Yes: Hypothyroidism - Past Surgical History Past Surgical History: Yes: Colectomy (partial colectomy for volvulus), Hernia Repair (Left repair 10/2014), Joint Replacement (bilateral THRs 1991), Prostatectomy (1979), Vasectomy (1979) - Alcohol/Substance Use Hx Alcohol Use: No History of Substance Use: reports: None - Smoking History Smoking history: Never smoked Have you smoked in the past 12 months: No - Social History ADL: Independent Home Medications - Allergies Allergies/Adverse Reactions: Allergies Allergy/AdvReac Type Severity Reaction Status Date / Time No Known Allergies Allergy Verified 11/10/17 13:37 - Home Medications Home Medications: Ambulatory Orders Calcium Carbonate [Calcium] 500 mg PO BID tablet 11/06/14 Multivitamin [Daily Vitamin] 1 each PO DAILY tablet 11/06/14 [place]-3/Dha/Epa/Lut/Zeaxanthin [[facility] Softgel] 1 each PO 2 CAPS BID capsule 04/26/17 Ferrous Sulfate 325 mg PO DAILY 08/31/17 Furosemide [Lasix] 80 mg PO BID #60 tablet 09/06/17 Metoprolol Succinate [Toprol Xl -] 100 mg PO DAILY #30 tab.sr.24h 09/06/17 Cephalexin 250 mg PO TID 11/10/17 Metolazone [Zaroxolyn -] 5 mg PO BID 11/10/17 Family Disease History - Family Disease History Family Disease History: Heart Disease: Father (heart disease 72), Other: Mother (ca pancreas 89) Review of Systems - Review of Systems Constitutional: reports: No Symptoms Eyes: reports: No Symptoms HENT: reports: No Symptoms, Ocular Prosthesis Cardiovascular: reports: No Symptoms Respiratory: reports: No Symptoms Gastrointestinal: reports: No Symptoms Genitourinary: reports: No Symptoms Musculoskeletal: reports: Extremity Pain, Other Integumentary: reports: Change in Color, Erythema, Wound, Other Neurological: reports: No Symptoms Endocrine: reports: No Symptoms Hematology/Lymphatic: reports: No Symptoms Psychiatric: reports: No Symptoms Physical Exam Vital Signs: Vital Signs Temperature 98.1 F 11/10/17 13:14 Pulse Rate 94 H 11/10/17 13:14 Respiratory Rate 20 11/10/17 13:14 Blood Pressure 109/66 11/10/17 13:14 O2 Sat by Pulse Oximetry (%) 96 11/10/17 14:00 Constitutional: Yes: Well Nourished, Calm, Mild Distress, Obese Eyes: Yes: Conjunctiva Clear Neck: Yes: Supple, Trachea Midline Cardiovascular: Yes: Regular Rate and Rhythm, S1, S2 Respiratory: Yes: Regular, CTA Bilaterally Gastrointestinal: Yes: Normal Bowel Sounds, Soft Musculoskeletal: Yes: Other Extremities: Yes: Erythema Edema: LLE: 2+, RLE: 2+ Integumentary: Yes: Erythema, Venous Stasis Changes, Other Wound/Incision: Yes: Draining, Reddened, Other Neurological: Yes: Alert, Oriented Psychiatric: Yes: Alert, Oriented Labs: CBC, BMP 11/10/17 14:27 11/10/17 14:15 Imaging - Results Chest X-ray: Report Reviewed, Image Reviewed Ultrasound: Image Reviewed Assessment/Plan patient with severe cellulitis of the rt leg with weeping Problem List - Problems (1) Cellulitis Code(s): L03.90 - CELLULITIS, UNSPECIFIED Qualifiers: Site of cellulitis: extremity Site of cellulitis of extremity: lower extremity Laterality: right Qualified Code(s): L03.115 - Cellulitis of right lower limb (2) Atrial fibrillation Code(s): I48.91 - UNSPECIFIED ATRIAL FIBRILLATION (3) Benign prostate hyperplasia Code(s): N40.0 - BENIGN PROSTATIC HYPERPLASIA WITHOUT LOWER URINRY TRACT SYMP (4) Congestive heart failure (CHF) Code(s): I50.9 - HEART FAILURE, UNSPECIFIED (5) Hypothyroidism Code(s): E03.9 - HYPOTHYROIDISM, UNSPECIFIED plan will start patient on vanco and zosyn close watch on the leg await for imaging results rest as per the team vanco level
[2017-11-10] MEDS ORDERED: POTASSIUM CHLORIDE ORAL LIQUID 20 MEQ/15 ML PO ONE ×2 (17:00→21:00)
[2017-11-10] MEDS ORDERED: PIPERACILLIN/TAZOB 3.375 GM 3.375 GM in DEXTROSE 5%-WATER - 100 ML IVPB SCH (18:00)
[2017-11-10] MEDS: PIPERACILLIN/TAZOB 3.375 GM/50 ML PRE-DOCKED IVPB SCH (18:05)
[2017-11-10 18:17] VITALS: BMI 28.0
[2017-11-10] MEDS: DABIGATRAN ETEXILATE MESYLATE 150 MG CAPSULE PO SCH (21:51)
[2017-11-10] MEDS: ATORVASTATIN CA 10 MG TABLET (FP) PO SCH (21:51)
[2017-11-11] MEDS: PIPERACILLIN/TAZOB 3.375 GM/50 ML PRE-DOCKED IVPB SCH ×3 (01:32→17:19)
[2017-11-11] MEDS: LEVOTHYROXINE NA 100 MCG TABLET (FP) PO SCH (06:52)
[2017-11-11 07:46] LABS: HEMATOCRIT 30.4 % (35.4-49); HEMOGLOBIN 10.6 GM/dl (11.7-16.9); MEAN CELL VOLUME 97.2 fl (80-96); MEAN PLT VOLUME 8.2 fl (7.5-11.1); PLATELET COUNT 155 K/MM3 (134-434); RBC 3.13 M/mm3 (4.00-5.60); RDW 17.3 % (11.9-15.9); WHITE BLOOD COUNT 4.9 K/mm3 (4.0-10.8)
[2017-11-11 07:49] LABS: ADD RBC MORPHOLOGY YES
[2017-11-11 08:33] LABS: ALBUMIN 2.8 g/dl (3.5-5.0); ALK PHOS 98 U/L (32-92); ANION GAP 10 (8-16); BILIRUBIN,TOTAL 1.7 mg/dl (0.2-1.0); BLOOD UREA NITROGEN 48 mg/dl (7-18); CALCIUM 7.8 mg/dl (8.4-10.2); CHLORIDE 90 mmol/L (98-107); CO2 31 mmol/L (22-28); CREATININE 1.4 mg/dl (0.6-1.3); GLUCOSE,RANDOM 97 mg/dl (74-106); MAGNESIUM 2.3 mg/dL (1.8-2.4); PHOSPHOROUS 2.9 mg/dl (2.5-4.6); SGOT/AST 80 U/L (10-42); SGPT/ALT 33 U/L (10-40); SODIUM 131 mmol/L (136-145); TOT PROT 6.7 g/dl (6.4-8.3)
[2017-11-11] MEDS: DABIGATRAN ETEXILATE MESYLATE 150 MG CAPSULE PO SCH ×2 (09:32→21:09)
[2017-11-11] MEDS: FERROUS SO4 325 MG TABLET (FP) PO SCH (09:32)
[2017-11-11 10:01] LABS: PLATELET ESTIMATE ADEQUATE
[2017-11-11] MEDS ORDERED: POTASSIUM CHLORIDE TABS 20 MEQ TABLET.ER (FP) PO ONE ×2 (12:06→16:00)
--- NOTE | 2017-11-11 13:07 | PN ---
Physical Exam: SUBJECTIVE: Patient seen and examined. Does not feel that right leg swelling and pain have improved yet. No shortness of breath or any other symptoms. OBJECTIVE: Vital Signs Period Temp Pulse Resp BP Sys/Servin Pulse Ox Last 24 Hr 97.8 F-98.5 F 87-115 18-20 100-111/53-71 92-100 GENERAL: The patient is awake, alert, and fully oriented, in no acute distress. HEAD: Normal with no signs of trauma. EYES: PERRL, extraocular movements intact, sclera anicteric, conjunctiva clear. No ptosis. ENT: Ears normal, nares patent, oropharynx clear without exudates, moist mucous membranes. NECK: Trachea midline, full range of motion, supple. LUNGS: Breath sounds equal, clear to auscultation bilaterally, no wheezes, no crackles, no accessory muscle use. HEART: Regular rate and rhythm, S1, S2 without murmur, rub or gallop. ABDOMEN: Soft, nontender, nondistended, normoactive bowel sounds, no guarding, no rebound, no hepatosplenomegaly, no masses. EXTREMITIES: Warm, well-perfused. RLE 4+ edema, erythema, weeping. DP/PT pulses 2+. NEUROLOGICAL: Cranial nerves II through XII grossly intact. Normal speech, gait not observed. PSYCH: Normal mood, normal affect. SKIN: Warm, dry, normal turgor, no rashes or lesions noted Laboratory Results - last 24 hr 11/10/17 11/10/17 11/10/17 14:15 14:18 14:27 WBC 6.4 D RBC 3.55 L Hgb 11.8 Hct 34.3 L MCV 96.8 H MCH 33.1 MCHC 34.2 RDW 17.2 H Plt Count 197 MPV 8.6 Neutrophils % 86.5 H D Neutrophils % (Manual) Band Neutrophils % Lymphocytes % 7.5 L D Lymphocytes % (Manual) Monocytes % 5.5 Monocytes % (Manual) Eosinophils % 0.3 Eosinophils % (Manual) Basophils % 0.2 Platelet Estimate Sodium 129 L Potassium 3.0 L Chloride 86 L Carbon Dioxide 33 H Anion Gap 10 BUN 50 H Creatinine 1.3 Creat Clearance w eGFR 52.34 Random Glucose 97 Hemoglobin A1c % Calcium 8.0 L Phosphorus Magnesium Total Bilirubin 2.0 H AST 108 H D ALT 35 D Alkaline Phosphatase 116 H D Total Protein 7.7 Albumin 3.4 L Urine Color Yellow Urine Appearance Clear Urine pH 7.5 Ur Specific [place] 1.015 Urine Protein Negative Urine Glucose (UA) Negative Urine Ketones Negative Urine Blood Negative Urine Nitrite Negative Urine Bilirubin Negative Urine Urobilinogen 0.2 Ur Leukocyte Esterase Negative 11/11/17 11/11/17 11/11/17 07:25 07:25 07:25 WBC 4.9 RBC 3.13 L Hgb 10.6 L D Hct 30.4 L MCV 97.2 H MCH 34.0 H MCHC 35.0 RDW 17.3 H Plt Count 155 D MPV 8.2 Neutrophils % No Result Required. Neutrophils % (Manual) 82.0 Band Neutrophils % 3.0 Lymphocytes % No Result Required. Lymphocytes % (Manual) 11.0 Monocytes % Monocytes % (Manual) 3 L Eosinophils % Eosinophils % (Manual) 1.0 Basophils % Platelet Estimate Adequate Sodium 131 L Potassium 3.0 L Chloride 90 L Carbon Dioxide 31 H Anion Gap 10 BUN 48 H Creatinine 1.4 H Creat Clearance w eGFR 48.05 Random Glucose 97 Hemoglobin A1c % 4.9 D Calcium 7.8 L Phosphorus 2.9 Magnesium 2.3 Total Bilirubin 1.7 H AST 80 H D ALT 33 Alkaline Phosphatase 98 H Total Protein 6.7 Albumin 2.8 L Urine Color Urine Appearance Urine pH Ur Specific [place] Urine Protein Urine Glucose (UA) Urine Ketones Urine Blood Urine Nitrite Urine Bilirubin Urine Urobilinogen Ur Leukocyte Esterase Active Medications Generic Name Dose Route Start Last Admin Trade Name Freq PRN Reason Stop Dose Admin Atorvastatin Calcium 10 mg 11/10/17 22:00 11/10/17 21:51 Lipitor - PO 10 mg HS NEIL Administration Dabigatran 150 mg 11/10/17 22:00 11/11/17 09:32 Pradaxa - PO 150 mg BID NEIL Administration Ferrous Sulfate 325 mg 11/11/17 10:00 11/11/17 09:32 Feosol - PO 325 mg DAILY NEIL Administration Levothyroxine Sodium 100 mcg 11/11/17 07:00 11/11/17 06:52 Synthroid - PO 100 mcg AM NEIL Administration Metoprolol Succinate 100 mg 11/11/17 10:00 11/11/17 09:32 Toprol Xl - PO 100 mg DAILY NEIL Administration Piperacillin Sod/Tazobactam Sod 3.375 gm 11/10/17 18:00 11/11/17 09:32 Zosyn 3.375gm Ivpb (Pre-Docked) IVPB 3.375 gm Q8H-IV NEIL Administration Potassium Chloride 40 meq 11/11/17 16:00 K-Dur - PO 11/11/17 16:01 ONCE ONE ASSESSMENT/PLAN:Assessment: 86 year old male pMHx significant for HTN, HLD, afib on [place], biventricular systolic heart failure, severe TR, CVA (2010) , right pleural effusion s/p thoracentesis (2014), and hypothyroidism admitted with RLE cellulitis. Plan: 1. RLE cellulitis - Xray: no gas formation - U/s: Extensive fluid within the soft tissues, no drainable collection, no DVT - Continue Vancomycin daily dosing for renal function; check level before dose # 4 - Continue Zosyn - Elevate leg 2. Acute on chronic Biventricular systolic heart failure - Holding Lasix 80mg BID and metolazone for hyponatremia and hypokalemia - Likely re-start slowly tomorrow if improved 3. Atrial Fibrillation, chronic - Resume Pradaxa - Continue Toprol xl 100mg daily - Recent cardiology evaluation with Dr. Knox this past Monday 4. Hypothyroid - Continue Synthroid 5. GILMER - Near baseline, follow 6. Iron deficiency anemia - On ferrous sulfate 7. Ppx - Pradaxa DISPO: Requires inpatient services.
[2017-11-11] MEDS: VANCOMYCIN 1,250 MG in DEXTROSE 5%-WATER - 250 ML IVPB SCH (13:33)
--- NOTE | 2017-11-11 15:10 | PN ---
Progress Note, Physician History of Present Illness: Pt seen and examined. Chart reviewed, lab results noted. Pt is alert, without acute distress. Has some pain in Rt leg, still swollen. Afebrile, without other specific complaints. at bedside. - Current Medication List Current Medications: Active Medications Atorvastatin Calcium (Lipitor -) 10 mg PO HS [facility] Last Admin: 11/10/17 21:51 Dose: 10 mg Dabigatran (Pradaxa -) 150 mg PO BID [facility] Last Admin: 11/11/17 09:32 Dose: 150 mg Ferrous Sulfate (Feosol -) 325 mg PO DAILY [facility] Last Admin: 11/11/17 09:32 Dose: 325 mg Vancomycin HCl 1,250 mg/ (Dextrose) 250 mls @ 250 mls/hr IVPB DAILY [facility] PRN Reason: Protocol Last Admin: 11/11/17 13:33 Dose: 250 mls/hr Levothyroxine Sodium (Synthroid -) 100 mcg PO AM [facility] Last Admin: 11/11/17 06:52 Dose: 100 mcg Metoprolol Succinate (Toprol Xl -) 100 mg PO DAILY [facility] Last Admin: 11/11/17 09:32 Dose: 100 mg Piperacillin Sod/Tazobactam Sod (Zosyn 3.375gm Ivpb (Pre-Docked)) 3.375 gm IVPB Q8H-IV [facility] Last Admin: 11/11/17 09:32 Dose: 3.375 gm Potassium Chloride (K-Dur -) 40 meq PO ONCE ONE Stop: 11/11/17 16:01 - Objective Vital Signs: Vital Signs Temperature 97.8 F 11/11/17 09:28 Pulse Rate 103 H 11/11/17 09:28 Respiratory Rate 18 11/11/17 09:28 Blood Pressure 100/71 11/11/17 09:28 O2 Sat by Pulse Oximetry (%) 98 11/11/17 06:04 Constitutional: Yes: No Distress HENT: Yes: WNL Neck: Yes: Supple Cardiovascular: Yes: Regular Rate and Rhythm Respiratory: Yes: CTA Bilaterally Gastrointestinal: Yes: Normal Bowel Sounds, Soft Genitourinary: Yes: WNL Extremities: Yes: Erythema (RLE severely erythematous, warm, tender with edema) Neurological: Yes: Alert, Oriented Labs: CBC, BMP 11/11/17 07:25 11/11/17 07:25 Problem List - Problems (1) Cellulitis Code(s): L03.90 - CELLULITIS, UNSPECIFIED Qualifiers: Site of cellulitis: extremity Site of cellulitis of extremity: lower extremity Laterality: right Qualified Code(s): L03.115 - Cellulitis of right lower limb (2) Acute kidney injury Code(s): N17.9 - ACUTE KIDNEY FAILURE, UNSPECIFIED (3) Atrial fibrillation Code(s): I48.91 - UNSPECIFIED ATRIAL FIBRILLATION (4) Benign prostate hyperplasia Code(s): N40.0 - BENIGN PROSTATIC HYPERPLASIA WITHOUT LOWER URINRY TRACT SYMP (5) Congestive heart failure (CHF) Code(s): I50.9 - HEART FAILURE, UNSPECIFIED (6) H/O: CVA (cerebrovascular accident) Code(s): Z86.73 - PRSNL HX OF TIA (TIA), AND CEREB INFRC W/O RESID DEFICITS Assessment/Plan Rt LE Cellulitis refractory to po antibiotics -- continue Zosyn/Vancomycin -- monitor renal function closely, adjust Vancomycin dosing as necessary -- continue wound care
[2017-11-11] MEDS: ATORVASTATIN CA 10 MG TABLET (FP) PO SCH (21:09)
[2017-11-12] MEDS: PIPERACILLIN/TAZOB 3.375 GM/50 ML PRE-DOCKED IVPB SCH ×3 (01:45→18:03)
[2017-11-12] MEDS: LEVOTHYROXINE NA 100 MCG TABLET (FP) PO SCH (07:00)
[2017-11-12 08:50] LABS: ALBUMIN 2.7 g/dl (3.5-5.0); ALK PHOS 117 U/L (32-92); ANION GAP 9 (8-16); BASO % 0.5 % (0-2.0); BILIRUBIN,TOTAL 1.7 mg/dl (0.2-1.0); BLOOD UREA NITROGEN 42 mg/dl (7-18); CALCIUM 7.8 mg/dl (8.4-10.2); CHLORIDE 93 mmol/L (98-107); CO2 29 mmol/L (22-28); CREATININE 1.4 mg/dl (0.6-1.3); EOS % 1.9 % (0-4.5); GLUCOSE,RANDOM 94 mg/dl (74-106); HEMATOCRIT 30.1 % (35.4-49); HEMOGLOBIN 10.6 GM/dl (11.7-16.9); LYMPH % 13.3 % (8-40); MAGNESIUM 2.3 mg/dL (1.8-2.4); MCH 34.6 pg (25.7-33.7); MCHC 35.1 g/dl (32.0-35.9); MEAN CELL VOLUME 98.7 fl (80-96); MEAN PLT VOLUME 8.6 fl (7.5-11.1); MONO % 7.1 % (3.8-10.2); NEUT % 77.2 % (42.8-82.8); PLATELET COUNT 158 K/MM3 (134-434); POTASSIUM 3.4 mmol/L (3.5-5.1); RBC 3.06 M/mm3 (4.00-5.60); RDW 16.8 % (11.9-15.9); SGOT/AST 75 U/L (10-42); SGPT/ALT 34 U/L (10-40); SODIUM 131 mmol/L (136-145); TOT PROT 6.8 g/dl (6.4-8.3); WHITE BLOOD COUNT 4.9 K/mm3 (4.0-10.8)
[2017-11-12] MEDS ORDERED: REFRIGERATED ANITBIOTICS ONE (09:30)
--- NOTE | 2017-11-12 09:53 | PN ---
Physical Exam: SUBJECTIVE: Patient seen and examined and states he his feeling much better but his right leg is still infected. He has some redness and swelling but denies pain to it. He had an uneventful overnight and is sitting up enjoying breakfast. OBJECTIVE: Vital Signs Period Temp Pulse Resp BP Sys/Servin Pulse Ox Last 24 Hr 97.7 F-98.0 F 96-115 19-20 119-124/68-75 96-100 GENERAL: The patient is awake, alert, and fully oriented, in no acute distress. HEAD: Normal with no signs of trauma. LUNGS: Breath sounds equal, clear to auscultation bilaterally, no wheezes, no crackles, no accessory muscle use. HEART: Irregular rate and rhythm with chronic AF of controlled rate ABDOMEN: Soft, nontender, nondistended, normoactive bowel sounds, no guarding, no rebound, no hepatosplenomegaly, no masses. EXTREMITIES: Upper extremeties with some old bruising and minor skin tears, LE, left is warm, trace edema, and elevated with + pedal, Left leg with toes less swelling according to pt, from mid foot to mid thigh +3-4 edema, redness, weeping cellulitis, warm to touch and with some pain to pt. NEUROLOGICAL: Cranial nerves II through XII grossly intact. Normal speech, gait not observed. PSYCH: Normal mood, normal affect. SKIN: Warm, dry, poor turgor, no rashes or lesions noted Laboratory Results - last 24 hr 11/11/17 11/11/17 11/12/17 07:25 07:25 08:00 WBC 4.9 RBC 3.06 L Hgb 10.6 L Hct 30.1 L MCV 98.7 H MCH 34.6 H MCHC 35.1 RDW 16.8 H Plt Count 158 MPV 8.6 Neutrophils % 77.2 Neutrophils % (Manual) 82.0 Band Neutrophils % 3.0 Lymphocytes % 13.3 D Lymphocytes % (Manual) 11.0 Monocytes % 7.1 Monocytes % (Manual) 3 L Eosinophils % 1.9 D Eosinophils % (Manual) 1.0 Basophils % 0.5 Platelet Estimate Adequate Sodium Potassium Chloride Carbon Dioxide Anion Gap BUN Creatinine Creat Clearance w eGFR Random Glucose Hemoglobin A1c % 4.9 D Calcium Magnesium Total Bilirubin AST ALT Alkaline Phosphatase Total Protein Albumin 11/12/17 08:00 WBC RBC Hgb Hct MCV MCH MCHC RDW Plt Count MPV Neutrophils % Neutrophils % (Manual) Band Neutrophils % Lymphocytes % Lymphocytes % (Manual) Monocytes % Monocytes % (Manual) Eosinophils % Eosinophils % (Manual) Basophils % Platelet Estimate Sodium 131 L Potassium 3.4 L Chloride 93 L Carbon Dioxide 29 H Anion Gap 9 BUN 42 H Creatinine 1.4 H Creat Clearance w eGFR 48.05 Random Glucose 94 Hemoglobin A1c % Calcium 7.8 L Magnesium 2.3 Total Bilirubin 1.7 H AST 75 H ALT 34 Alkaline Phosphatase 117 H Total Protein 6.8 Albumin 2.7 L Active Medications Generic Name Dose Route Start Last Admin Trade Name Freq PRN Reason Stop Dose Admin Atorvastatin Calcium 10 mg 11/10/17 22:00 11/11/17 21:09 Lipitor - PO 10 mg HS NEIL Administration Dabigatran 150 mg 11/10/17 22:00 11/11/17 21:09 Pradaxa - PO 150 mg BID NEIL Administration Ferrous Sulfate 325 mg 11/11/17 10:00 11/11/17 09:32 Feosol - PO 325 mg DAILY NEIL Administration Vancomycin HCl 1,250 mg/ 250 mls @ 250 mls/hr 11/11/17 13:15 11/11/17 13:33 Dextrose IVPB 250 mls/hr DAILY NEIL Administration Protocol Levothyroxine Sodium 100 mcg 11/11/17 07:00 11/12/17 07:00 Synthroid - PO 100 mcg AM NEIL Administration Metoprolol Succinate 100 mg 11/11/17 10:00 11/11/17 09:32 Toprol Xl - PO 100 mg DAILY NEIL Administration Piperacillin Sod/Tazobactam Sod 3.375 gm 11/10/17 18:00 11/12/17 01:45 Zosyn 3.375gm Ivpb (Pre-Docked) IVPB 3.375 gm Q8H-IV NELI Administration Potassium Chloride 40 meq 11/12/17 10:00 K-Dur - PO 11/12/17 22:01 BID [facility] ASSESSMENT/PLAN: Problem List - Problems (1) Systolic CHF, chronic Code(s): I50.22 - CHRONIC SYSTOLIC (CONGESTIVE) HEART FAILURE (2) Cellulitis Assessment/Plan: -right leg with increase redness, swelling, weeping, and obvious infection -daily dressing change -elevate feet i nbed -restarting low dose lasix while monitoring labs -continue antibiotics, vanco to be checked in AM dose, zosyn to continue -appreciate ID input -tylenol for prn fever -f/u cx; group D strep without sensivities noted pending, continue ABT Code(s): L03.90 - CELLULITIS, UNSPECIFIED Qualifiers: Site of cellulitis: extremity Site of cellulitis of extremity: lower extremity Laterality: right Qualified Code(s): L03.115 - Cellulitis of right lower limb (3) Acute kidney injury Assessment/Plan: -cr 1.4 today -will restart low dose lasix and monitor labs -monitor daily weight -monitor I/O Code(s): N17.9 - ACUTE KIDNEY FAILURE, UNSPECIFIED (4) Anemia Assessment/Plan: -ferrous sulfate daily -stool softner -monitor cbc Code(s): D64.9 - ANEMIA, UNSPECIFIED Qualifiers: Anemia type: unspecified type Qualified Code(s): D64.9 - Anemia, unspecified (5) Atrial fibrillation Assessment/Plan: -controlled rate on desk monitor -continue pradaxa Code(s): I48.91 - UNSPECIFIED ATRIAL FIBRILLATION (6) Congestive heart failure (CHF) Assessment/Plan: -lasix 40 x 1 today and monitor labs -no sob Code(s): I50.9 - HEART FAILURE, UNSPECIFIED (7) Hypothyroidism Assessment/Plan: -continue synthroid Code(s): E03.9 - HYPOTHYROIDISM, UNSPECIFIED Visit type - Emergency Visit Emergency Visit: Yes ED Registration Date: 11/10/17 Care time: The patient presented to the Emergency Department on the above date and was hospitalized for further evaluation of their emergent condition. - New Patient This patient is new to me today: Yes Date on this admission: 11/12/17 - Critical Care Critical Care patient: No - Discharge Referral Referred to [facility] Med P.C.: No
[2017-11-12] MEDS ORDERED: FUROSEMIDE 40 MG/4 ML INJECTABLE VIAL IVPUSH SCH (10:00)
[2017-11-12] MEDS: FERROUS SO4 325 MG TABLET (FP) PO SCH (10:03)
[2017-11-12] MEDS: DABIGATRAN ETEXILATE MESYLATE 150 MG CAPSULE PO SCH ×2 (10:03→21:38)
[2017-11-12] MEDS: VANCOMYCIN 1,250 MG in DEXTROSE 5%-WATER - 250 ML IVPB SCH (10:05)
[2017-11-12] MEDS: POTASSIUM CHLORIDE TABS 20 MEQ TABLET.ER (FP) PO SCH ×2 (10:11→21:38)
[2017-11-12] MEDS ORDERED: BACITRACIN 0.9 GM PACKET ONE ×2 (15:26)
--- NOTE | 2017-11-12 16:41 | PN ---
Progress Note, Physician History of Present Illness: Pt still with significant RLE swelling/erythema. Has been afebrile, without any other specific complaints. - Current Medication List Current Medications: Active Medications Acetaminophen (Tylenol -) 650 mg PO Q4H PRN PRN Reason: FEVER Atorvastatin Calcium (Lipitor -) 10 mg PO HS [facility] Last Admin: 11/11/17 21:09 Dose: 10 mg Dabigatran (Pradaxa -) 150 mg PO BID [facility] Last Admin: 11/12/17 10:03 Dose: 150 mg Ferrous Sulfate (Feosol -) 325 mg PO DAILY [facility] Last Admin: 11/12/17 10:03 Dose: 325 mg Furosemide (Lasix Injection -) 40 mg IVPUSH DAILY [facility] Last Admin: 11/12/17 10:11 Dose: 40 mg Vancomycin HCl 1,250 mg/ (Dextrose) 250 mls @ 250 mls/hr IVPB DAILY [facility] PRN Reason: Protocol Last Admin: 11/12/17 10:05 Dose: 250 mls/hr Levothyroxine Sodium (Synthroid -) 100 mcg PO AM [facility] Last Admin: 11/12/17 07:00 Dose: 100 mcg Metoprolol Succinate (Toprol Xl -) 100 mg PO DAILY [facility] Last Admin: 11/12/17 10:03 Dose: 100 mg Piperacillin Sod/Tazobactam Sod (Zosyn 3.375gm Ivpb (Pre-Docked)) 3.375 gm IVPB Q8H-IV [facility] Last Admin: 11/12/17 10:05 Dose: 3.375 gm Potassium Chloride (K-Dur -) 40 meq PO BID [facility] Stop: 11/12/17 22:01 Last Admin: 11/12/17 10:11 Dose: 40 meq - Objective Vital Signs: Vital Signs Temperature 97.9 F 11/12/17 14:00 Pulse Rate 89 11/12/17 14:00 Respiratory Rate 19 11/12/17 14:00 Blood Pressure 111/73 11/12/17 14:00 O2 Sat by Pulse Oximetry (%) 99 11/12/17 14:00 Constitutional: Yes: No Distress, Calm Cardiovascular: Yes: Regular Rate and Rhythm Respiratory: Yes: Regular Gastrointestinal: Yes: Normal Bowel Sounds, Soft Integumentary: Yes: Erythema (RLE extensive erythema/edema, mild tenderness) Labs: CBC, BMP 11/12/17 08:00 11/12/17 08:00 Problem List - Problems (1) Cellulitis Code(s): L03.90 - CELLULITIS, UNSPECIFIED Qualifiers: Site of cellulitis: extremity Site of cellulitis of extremity: lower extremity Laterality: right Qualified Code(s): L03.115 - Cellulitis of right lower limb (2) Acute kidney injury Code(s): N17.9 - ACUTE KIDNEY FAILURE, UNSPECIFIED (3) Atrial fibrillation Code(s): I48.91 - UNSPECIFIED ATRIAL FIBRILLATION (4) Benign prostate hyperplasia Code(s): N40.0 - BENIGN PROSTATIC HYPERPLASIA WITHOUT LOWER URINRY TRACT SYMP (5) Congestive heart failure (CHF) Code(s): I50.9 - HEART FAILURE, UNSPECIFIED (6) H/O: CVA (cerebrovascular accident) Code(s): Z86.73 - PRSNL HX OF TIA (TIA), AND CEREB INFRC W/O RESID DEFICITS Assessment/Plan Severe Rt LE Cellulitis -- continue Zosyn/Vancomycin IV -- monitor renal function closely, f/u on vancomycin levels -- continue wound care
[2017-11-12] MEDS: ATORVASTATIN CA 10 MG TABLET (FP) PO SCH (21:38)
[2017-11-13] MEDS: PIPERACILLIN/TAZOB 3.375 GM/50 ML PRE-DOCKED IVPB SCH ×2 (01:16→09:36)
[2017-11-13] MEDS: LEVOTHYROXINE NA 100 MCG TABLET (FP) PO SCH (06:41)
--- NOTE | 2017-11-13 08:16 | PN ---
Physical Exam: SUBJECTIVE: Patient seen and examined. Complains of dry cough. No leg pain. Still notes leg redness, swelling. OBJECTIVE: Vital Signs Period Temp Pulse Resp BP Sys/Servin Pulse Ox Last 24 Hr 97.8 F-98 F 61-89 18-20 108-119/66-76 97-100 GENERAL: The patient is awake, alert, and fully oriented, in no acute distress. HEAD: Normal with no signs of trauma. EYES: PERRL, extraocular movements intact, sclera anicteric, conjunctiva clear. No ptosis. ENT: Ears normal, nares patent, oropharynx clear without exudates, moist mucous membranes. NECK: Trachea midline, full range of motion, supple. LUNGS: +Wheezy cough, no wheezing at rest. Breath sounds equal, clear to auscultation bilaterally, no crackles, no accessory muscle use. HEART: Regular rate and rhythm, S1, S2 without murmur, rub or gallop. ABDOMEN: Soft, nontender, nondistended, normoactive bowel sounds, no guarding, no rebound, no hepatosplenomegaly, no masses. EXTREMITIES: 2+ pulses. RLE with mild warmth, extensive erythema, 3+ edema ( improved compared with exam on Monday). NEUROLOGICAL: Cranial nerves II through XII grossly intact. Normal speech, gait not observed. PSYCH: Normal mood, normal affect. SKIN: Warm, dry, normal turgor. Laboratory Results - last 24 hr 11/12/17 11/12/17 08:00 08:00 WBC 4.9 RBC 3.06 L Hgb 10.6 L Hct 30.1 L MCV 98.7 H MCH 34.6 H MCHC 35.1 RDW 16.8 H Plt Count 158 MPV 8.6 Neutrophils % 77.2 Lymphocytes % 13.3 D Monocytes % 7.1 Eosinophils % 1.9 D Basophils % 0.5 Sodium 131 L Potassium 3.4 L Chloride 93 L Carbon Dioxide 29 H Anion Gap 9 BUN 42 H Creatinine 1.4 H Creat Clearance w eGFR 48.05 Random Glucose 94 Calcium 7.8 L Magnesium 2.3 Total Bilirubin 1.7 H AST 75 H ALT 34 Alkaline Phosphatase 117 H Total Protein 6.8 Albumin 2.7 L Active Medications Generic Name Dose Route Start Last Admin Trade Name Freq PRN Reason Stop Dose Admin Acetaminophen 650 mg 11/12/17 11:42 Tylenol - PO Q4H PRN FEVER Atorvastatin Calcium 10 mg 11/10/17 22:00 11/12/17 21:38 Lipitor - PO 10 mg HS NEIL Administration Dabigatran 150 mg 11/10/17 22:00 11/12/17 21:38 Pradaxa - PO 150 mg BID NEIL Administration Ferrous Sulfate 325 mg 11/11/17 10:00 11/12/17 10:03 Feosol - PO 325 mg DAILY NEIL Administration Furosemide 40 mg 11/12/17 10:00 11/12/17 10:11 Lasix Injection - IVPUSH 40 mg DAILY NEIL Administration Vancomycin HCl 1,250 mg/ 250 mls @ 250 mls/hr 11/11/17 13:15 11/12/17 10:05 Dextrose IVPB 250 mls/hr DAILY NEIL Administration Protocol Lactobacillus Acidophilus 1 tab 11/13/17 10:00 Bacid - PO DAILY NEIL Levothyroxine Sodium 100 mcg 11/11/17 07:00 11/13/17 06:41 Synthroid - PO 100 mcg AM NEIL Administration Metoprolol Succinate 100 mg 11/11/17 10:00 11/12/17 10:03 Toprol Xl - PO 100 mg DAILY NEIL Administration Piperacillin Sod/Tazobactam Sod 3.375 gm 11/10/17 18:00 11/13/17 01:16 Zosyn 3.375gm Ivpb (Pre-Docked) IVPB 3.375 gm Q8H-IV NEIL Administration Microbiology 11/10/17 14:15 Leg - Right Lower Gram Stain - Final 11/10/17 14:15 Leg - Right Lower Wound Culture - Preliminary Serratia Marcescens Non Lactose Fermenting Gnb#2 Enterococcus Faecalis 11/10/17 14:27 Blood - Peripheral Venous Blood Culture - Preliminary NO GROWTH OBTAINED AFTER 48 HOURS, INCUBATION TO CONTINUE FOR 3 DAYS. 11/10/17 14:00 Blood - Peripheral Venous Blood Culture - Preliminary NO GROWTH OBTAINED AFTER 48 HOURS, INCUBATION TO CONTINUE FOR 3 DAYS. ASSESSMENT/PLAN: 86 year old male pMHx significant for HTN, HLD, afib on Pradaxa , biventricular systolic heart failure, severe TR, CVA (2010), right pleural effusion s/p thoracentesis (2014), and hypothyroidism admitted with RLE cellulitis. Plan: 1. RLE cellulitis - Xray: no gas formation - U/s: Extensive fluid within the soft tissues, no drainable collection, no DVT - Continue Vancomycin daily dosing for renal function; check level before dose # 4 today - Continue Zosyn - Elevate leg 2. Acute on chronic Biventricular systolic heart failure - Tolerating Lasix 40mg IVP daily well; resume Lasix 80mg po bid today; re- start metolazone if well-tolerated 3. Atrial Fibrillation, chronic - Resume Pradaxa - Continue Toprol xl 100mg daily - Recent cardiology evaluation with Dr. Knox this past Monday 4. Hypothyroid - Continue Synthroid 5. GILMER - Near baseline, stable, follow 6. Iron deficiency anemia - On ferrous sulfate 7. Ppx - Pradaxa 8. Hypokalemia - In context of diuretic use - Monitor, replete DISPO: Requires inpatient services. Visit type - Emergency Visit Emergency Visit: Yes ED Registration Date: 11/10/17 Care time: The patient presented to the Emergency Department on the above date and was hospitalized for further evaluation of their emergent condition. - New Patient This patient is new to me today: No - Critical Care Critical Care patient: No
[2017-11-13 09:10] LABS: BASO % 0.3 % (0-2.0); EOS % 2.8 % (0-4.5); HEMATOCRIT 32.6 % (35.4-49); HEMOGLOBIN 10.9 GM/dl (11.7-16.9); LYMPH % 13.3 % (8-40); MCH 32.9 pg (25.7-33.7); MCHC 33.6 g/dl (32.0-35.9); MEAN CELL VOLUME 97.9 fl (80-96); MEAN PLT VOLUME 8.5 fl (7.5-11.1); MONO % 6.8 % (3.8-10.2); NEUT % 76.8 % (42.8-82.8); PLATELET COUNT 175 K/MM3 (134-434); RBC 3.33 M/mm3 (4.00-5.60); RDW 16.8 % (11.9-15.9); WHITE BLOOD COUNT 4.8 K/mm3 (4.0-10.8)
[2017-11-13] MEDS ORDERED: PT OWN MED DRAWER 7, Y5N ONE ×2 (09:10→18:08)
[2017-11-13] MEDS: DABIGATRAN ETEXILATE MESYLATE 150 MG CAPSULE PO SCH ×2 (09:36→21:10)
[2017-11-13] MEDS: FERROUS SO4 325 MG TABLET (FP) PO SCH (09:36)
[2017-11-13] MEDS: LACTOBACILLUS ACIDOPHILUS 1 EACH TAB (FP) PO SCH (09:36)
[2017-11-13] MEDS: VANCOMYCIN 1,250 MG in DEXTROSE 5%-WATER - 250 ML IVPB SCH (09:36)
[2017-11-13 10:11] LABS: ALBUMIN 2.6 g/dl (3.5-5.0); ALK PHOS 120 U/L (32-92); ANION GAP 10 (8-16); BILIRUBIN,TOTAL 1.4 mg/dl (0.2-1.0); BLOOD UREA NITROGEN 36 mg/dl (7-18); CALCIUM 7.8 mg/dl (8.4-10.2); CHLORIDE 93 mmol/L (98-107); CO2 30 mmol/L (22-28); CREATININE 1.3 mg/dl (0.6-1.3); GLUCOSE,RANDOM 95 mg/dl (74-106); MAGNESIUM 2.3 mg/dL (1.8-2.4); PHOSPHOROUS 2.7 mg/dl (2.5-4.6); POTASSIUM 3.2 mmol/L (3.5-5.1); SGOT/AST 63 U/L (10-42); SGPT/ALT 33 U/L (10-40); SODIUM 133 mmol/L (136-145); TOT PROT 6.7 g/dl (6.4-8.3)
[2017-11-13] MEDS: POTASSIUM CHLORIDE TABS 20 MEQ TABLET.ER (FP) PO SCH ×2 (12:27→21:10)
--- NOTE | 2017-11-13 13:58 | EKG ---
Test Reason : Blood Pressure : / mmHG Vent. Rate : 103 BPM Atrial Rate : 096 BPM P-R Int : 000 ms QRS Dur : 148 ms QT Int : 418 ms P-R-T Axes : 000 -23 -46 degrees QTc Int : 547 ms POOR DATA QUALITY, INTERPRETATION MAY BE ADVERSELY AFFECTED ATRIAL FIBRILLATION WITH RAPID VENTRICULAR RESPONSE RIGHT BUNDLE BRANCH BLOCK ST depression and T wave inversions in V3-4 consider ischemia ABNORMAL ECG WHEN COMPARED WITH ECG OF 05-SEP-2017 04:54, T WAVE INVERSION MORE EVIDENT IN ANTERIOR LEADS Confirmed by JABIER COX MD ([id number] on 11/13/2017 1:58:06 PM Referred By: BAIRON CHANDLER Confirmed By:JABIER COX MD
[2017-11-13] MEDS: FUROSEMIDE 40 MG TABLET (FP) PO SCH (15:10)
[2017-11-13] MEDS ORDERED: BACITRACIN 0.9 GM PACKET ONE (15:27)
--- NOTE | 2017-11-13 15:33 | PN ---
Progress Note, Physician History of Present Illness: patient feeling better leg starting to improve still angry and cellulitis swollen wounds drying - Current Medication List Current Medications: Active Medications Acetaminophen (Tylenol -) 650 mg PO Q4H PRN PRN Reason: FEVER Atorvastatin Calcium (Lipitor -) 10 mg PO HS [facility] Last Admin: 11/12/17 21:38 Dose: 10 mg Dabigatran (Pradaxa -) 150 mg PO BID [facility] Last Admin: 11/13/17 09:36 Dose: 150 mg Ferrous Sulfate (Feosol -) 325 mg PO DAILY [facility] Last Admin: 11/13/17 09:36 Dose: 325 mg Furosemide (Lasix -) 80 mg PO BID@0600,1400 [facility] Last Admin: 11/13/17 15:10 Dose: 80 mg Vancomycin HCl 1,250 mg/ (Dextrose) 250 mls @ 166.667 mls/hr IVPB DAILY [facility] PRN Reason: Protocol Last Admin: 11/13/17 09:36 Dose: 166.667 mls/hr Piperacillin/Tazobactam/Dextrose (Zosyn 3.375gm Ivpb (Premix)) 50 mls @ 100 mls /hr IVPB Q8H-IV NEIL PRN Reason: Protocol Lactobacillus Acidophilus (Bacid -) 1 tab PO DAILY [facility] Last Admin: 11/13/17 09:36 Dose: 1 tab Levothyroxine Sodium (Synthroid -) 100 mcg PO AM [facility] Last Admin: 11/13/17 06:41 Dose: 100 mcg Metoprolol Succinate (Toprol Xl -) 100 mg PO DAILY [facility] Last Admin: 11/13/17 09:36 Dose: 100 mg Nystatin (Mycostatin Ointment -) 1 applic TP BID [facility] Piperacillin Sod/Tazobactam Sod (Zosyn 3.375gm Ivpb (Pre-Docked)) 3.375 gm IVPB Q8H-IV [facility] Last Admin: 11/13/17 09:36 Dose: 3.375 gm Potassium Chloride (K-Dur -) 40 meq PO BID [facility] Last Admin: 11/13/17 12:27 Dose: 40 meq - Objective Vital Signs: Vital Signs Temperature 97.9 F 11/13/17 14:10 Pulse Rate 93 H 11/13/17 14:10 Respiratory Rate 19 11/13/17 14:10 Blood Pressure 109/66 11/13/17 14:10 O2 Sat by Pulse Oximetry (%) 94 L 11/13/17 14:10 Constitutional: Yes: No Distress, Calm Cardiovascular: Yes: S1, S2 Respiratory: Yes: Regular, CTA Bilaterally Gastrointestinal: Yes: Normal Bowel Sounds, Soft Musculoskeletal: Yes: WNL Extremities: Yes: Other Wound/Incision: Yes: Dressing Removed, Other (wound healing) Neurological: Yes: Alert, Oriented Psychiatric: Yes: Alert, Oriented Labs: CBC, BMP 11/13/17 07:20 11/13/17 07:20 Assessment/Plan patient with severe cellulitis of the rt leg with weeping Problem List - Problems (1) Cellulitis Code(s): L03.90 - CELLULITIS, UNSPECIFIED Qualifiers: Site of cellulitis: extremity Site of cellulitis of extremity: lower extremity Laterality: right Qualified Code(s): L03.115 - Cellulitis of right lower limb (2) Atrial fibrillation Code(s): I48.91 - UNSPECIFIED ATRIAL FIBRILLATION (3) Benign prostate hyperplasia Code(s): N40.0 - BENIGN PROSTATIC HYPERPLASIA WITHOUT LOWER URINRY TRACT SYMP (4) Congestive heart failure (CHF) Code(s): I50.9 - HEART FAILURE, UNSPECIFIED (5) Hypothyroidism Code(s): E03.9 - HYPOTHYROIDISM, UNSPECIFIED plan continue current abx elevation of the legs cx report noted still awaiting final identification of one organism rest as per primary team
[2017-11-13] MEDS: PIPERACILLIN/TAZOB 3.375 GM 3.375 GM/50 ML BAG IVPB SCH (18:24)
[2017-11-13] MEDS: NYSTATIN 100000 UNIT/GM TOPICAL OINTMENT 15 GM TUBE TP SCH (21:10)
[2017-11-13] MEDS: ATORVASTATIN CA 10 MG TABLET (FP) PO SCH (21:10)
[2017-11-14] MEDS: PIPERACILLIN/TAZOB 3.375 GM 3.375 GM/50 ML BAG IVPB SCH ×3 (01:37→17:56)
[2017-11-14] MEDS: FUROSEMIDE 40 MG TABLET (FP) PO SCH ×2 (06:14→14:09)
[2017-11-14] MEDS: LEVOTHYROXINE NA 100 MCG TABLET (FP) PO SCH (06:14)
[2017-11-14 08:56] LABS: BASO % 0.2 % (0-2.0); EOS % 2.5 % (0-4.5); HEMATOCRIT 30.2 % (35.4-49); HEMOGLOBIN 10.8 GM/dl (11.7-16.9); LYMPH % 12.6 % (8-40); MCHC 35.6 g/dl (32.0-35.9); MEAN CELL VOLUME 95.5 fl (80-96); MEAN PLT VOLUME 7.6 fl (7.5-11.1); MONO % 6.8 % (3.8-10.2); NEUT % 77.9 % (42.8-82.8); PLATELET COUNT 190 K/MM3 (134-434); RBC 3.16 M/mm3 (4.00-5.60); RDW 16.7 % (11.9-15.9); WHITE BLOOD COUNT 4.3 K/mm3 (4.0-10.8)
[2017-11-14 09:10] LABS: ANION GAP 7 (8-16); BLOOD UREA NITROGEN 30 mg/dl (7-18); CALCIUM 7.6 mg/dl (8.4-10.2); CHLORIDE 95 mmol/L (98-107); CO2 31 mmol/L (22-28); CREATININE 1.2 mg/dl (0.6-1.3); GLUCOSE,RANDOM 91 mg/dl (74-106); MAGNESIUM 2.2 mg/dL (1.8-2.4); SODIUM 133 mmol/L (136-145)
--- NOTE | 2017-11-14 09:31 | PN ---
Physical Exam: SUBJECTIVE: Patient seen and examined, reports redness and swelling to right lower extremity is much improved. OBJECTIVE: patient is a 86 year old male pMHx significant for HTN, HLD, afib on Pradaxa, biventricular systolic heart failure, severe TR, CVA (2010), right pleural effusion s/p thoracentesis (2014), and hypothyroidism admitted with RLE cellulitis. Vital Signs Period Temp Pulse Resp BP Sys/Servin Pulse Ox Last 24 Hr 97.9 F-98.5 F 85-93 18-19 109-118/51-85 94-98 GENERAL: The patient is awake, alert, and fully oriented, in no acute distress. HEAD: Normal with no signs of trauma. EYES: PERRL, extraocular movements intact, sclera anicteric, conjunctiva clear. No ptosis. ENT: Ears normal, nares patent, oropharynx clear without exudates, moist mucous membranes. NECK: Trachea midline, full range of motion, supple. LUNGS: Breath sounds equal, diminished to bases, bilateral inspiratory wheeze to apexes, no crackles, no accessory muscle use. HEART: Regular rate and rhythm, S1, S2 without murmur, rub or gallop. ABDOMEN: Soft, nontender, nondistended, normoactive bowel sounds, no guarding, no rebound, no hepatosplenomegaly, no masses. EXTREMITIES: 2+ pulses, warm, well-perfused, right lower extremity--> erythema + 3 pitting edema, weeping of skin NEUROLOGICAL: Cranial nerves II through XII grossly intact. Normal speech, gait not observed. PSYCH: Normal mood, normal affect. SKIN: Warm, dry, normal turgor, no rashes or lesions noted Laboratory Results - last 24 hr CBC WBC 4.3 K/mm3 (4.0-10.8) 11/14/17 08:00 RBC 3.16 M/mm3 (4.00-5.60) L 11/14/17 08:00 Hgb 10.8 GM/dl (11.7-16.9) L 11/14/17 08:00 Hct 30.2 % (35.4-49) L 11/14/17 08:00 MCV 95.5 fl (80-96) 11/14/17 08:00 MCH 34.0 pg (25.7-33.7) H 11/14/17 08:00 MCHC 35.6 g/dl (32.0-35.9) 11/14/17 08:00 RDW 16.7 % (11.9-15.9) H 11/14/17 08:00 Plt Count 190 K/MM3 (134-434) 11/14/17 08:00 MPV 7.6 fl (7.5-11.1) D 11/14/17 08:00 Neutrophils % 77.9 % (42.8-82.8) 11/14/17 08:00 Neutrophils % (Manual) 82.0 % (42.8-82.8) 11/11/17 07:25 Band Neutrophils % 3.0 % (0-10) 11/11/17 07:25 Lymphocytes % 12.6 % (8-40) 11/14/17 08:00 Lymphocytes % (Manual) 11.0 % (8-40) 11/11/17 07:25 Monocytes % 6.8 % (3.8-10.2) 11/14/17 08:00 Monocytes % (Manual) 3 % (3.8-10.2) L 11/11/17 07:25 Eosinophils % 2.5 % (0-4.5) 11/14/17 08:00 Eosinophils % (Manual) 1.0 % (0-4.5) 11/11/17 07:25 Basophils % 0.2 % (0-2.0) 11/14/17 08:00 Platelet Estimate Adequate 11/11/17 07:25 CMP Sodium 133 mmol/L (136-145) L 11/14/17 08:00 Potassium 3.0 mmol/L (3.5-5.1) L 11/14/17 08:00 Chloride 95 mmol/L (98-107) L 11/14/17 08:00 Carbon Dioxide 31 mmol/L (22-28) H 11/14/17 08:00 Anion Gap 7 (8-16) L 11/14/17 08:00 BUN 30 mg/dl (7-18) H 11/14/17 08:00 Creatinine 1.2 mg/dl (0.6-1.3) 11/14/17 08:00 Creat Clearance w eGFR 52.34 (>60) 11/13/17 07:20 Random Glucose 91 mg/dl (74-106) 11/14/17 08:00 Hemoglobin A1c % 4.9 % (4.8-6.0) D 11/11/17 07:25 Calcium 7.6 mg/dl (8.4-10.2) L 11/14/17 08:00 Phosphorus 2.7 mg/dl (2.5-4.6) 11/13/17 07:20 Magnesium 2.2 mg/dL (1.8-2.4) 11/14/17 08:00 Total Bilirubin 1.4 mg/dl (0.2-1.0) H 11/13/17 07:20 AST 63 U/L (10-42) H 11/13/17 07:20 ALT 33 U/L (10-40) 11/13/17 07:20 Alkaline Phosphatase 120 U/L (32-92) H 11/13/17 07:20 Total Protein 6.7 g/dl (6.4-8.3) 11/13/17 07:20 Albumin 2.6 g/dl (3.5-5.0) L 11/13/17 07:20 Active Medications Generic Name Dose Route Start Last Admin Trade Name Freq PRN Reason Stop Dose Admin Acetaminophen 650 mg 11/12/17 11:42 Tylenol - PO Q4H PRN FEVER Atorvastatin Calcium 10 mg 11/10/17 22:00 11/13/17 21:10 Lipitor - PO 10 mg HS NEIL Administration Dabigatran 150 mg 11/10/17 22:00 11/13/17 21:10 Pradaxa - PO 150 mg BID NEIL Administration Ferrous Sulfate 325 mg 11/11/17 10:00 11/13/17 09:36 Feosol - PO 325 mg DAILY NEIL Administration Furosemide 80 mg 11/13/17 14:00 11/14/17 06:14 Lasix - PO 80 mg BID@0600,1400 NEIL Administration Vancomycin HCl 1,250 mg/ 250 mls @ 166.667 mls/hr 11/11/17 13:15 11/13/17 09: 36 Dextrose IVPB 166.667 mls/hr DAILY NEIL Administration Protocol Piperacillin Sod/Tazobactam Sod 3.375 gm in 50 mls @ 100 mls/hr 11/13/17 18: 00 11/14/17 01:37 Zosyn 3.375gm Ivpb (Pre-Docked) IVPB 100 mls/hr Q8H-IV NEIL Administration Protocol Lactobacillus Acidophilus 1 tab 11/13/17 10:00 11/13/17 09:36 Bacid - PO 1 tab DAILY NEIL Administration Levothyroxine Sodium 100 mcg 11/11/17 07:00 11/14/17 06:14 Synthroid - PO 100 mcg AM NEIL Administration Metoprolol Succinate 100 mg 11/11/17 10:00 11/13/17 09:36 Toprol Xl - PO 100 mg DAILY NEIL Administration Nystatin 1 applic 11/13/17 22:00 11/13/17 21:10 Mycostatin Ointment - TP 1 applic BID NEIL Administration Potassium Chloride 40 meq 11/13/17 11:30 11/13/17 21:10 K-Dur - PO 40 meq BID NEIL Administration Microbiology 11/10/17 14:27 Blood - Peripheral Venous Blood Culture - Preliminary NO GROWTH OBTAINED AFTER 72 HOURS, INCUBATION TO CONTINUE FOR 2 DAYS. 11/10/17 14:00 Blood - Peripheral Venous Blood Culture - Preliminary NO GROWTH OBTAINED AFTER 72 HOURS, INCUBATION TO CONTINUE FOR 2 DAYS. 11/10/17 14:15 Leg - Right Lower Gram Stain - Final 11/10/17 14:15 Leg - Right Lower Wound Culture - Preliminary Serratia Marcescens Non Lactose Fermenting Gnb#2 Enterococcus Faecalis IMAGING chest xray: mild pulmonary vascular congestion tib/fib xray: no acute pathology ultrasound of right lower ext: extensive fluid collection of the subcutaneous soft tissue ASSESSMENT/PLAN: 1.ID RLE cellulitis - Continue Vancomycin daily, recheck vancomycin through in AM, continue Zosyn, pending final wound cultures - Elevate leg 2. Acute on chronic Biventricular systolic heart failure - continue Lasix 80mg po bid today, restart metolazone if well-tolerated 3. Atrial Fibrillation, chronic - continue Pradaxa and Toprol xl 100mg daily - Recent cardiology evaluation with Dr. Knox this past Monday 4. Hypothyroid - Continue Synthroid 5. GILMER - Near baseline, stable, follow 6. Iron deficiency anemia - On ferrous sulfate 7. Ppx - Pradaxa 8. Hypokalemia - In context of diuretic use - potassium 10meq KCI x 2, continue po potassium and repeat bmp at 1800 DISPO: Requires inpatient services. Visit type - Emergency Visit Emergency Visit: Yes ED Registration Date: 11/10/17 Care time: The patient presented to the Emergency Department on the above date and was hospitalized for further evaluation of their emergent condition. - New Patient This patient is new to me today: No - Critical Care Critical Care patient: No - Discharge Referral Referred to [facility] Med P.C.: No
[2017-11-14] MEDS: DABIGATRAN ETEXILATE MESYLATE 150 MG CAPSULE PO SCH ×2 (09:38→21:55)
[2017-11-14] MEDS: POTASSIUM CHLORIDE TABS 20 MEQ TABLET.ER (FP) PO SCH ×2 (09:39→21:55)
[2017-11-14] MEDS: NYSTATIN 100000 UNIT/GM TOPICAL OINTMENT 15 GM TUBE TP SCH ×2 (09:39→21:56)
[2017-11-14] MEDS: LACTOBACILLUS ACIDOPHILUS 1 EACH TAB (FP) PO SCH (09:39)
[2017-11-14] MEDS: FERROUS SO4 325 MG TABLET (FP) PO SCH (09:39)
[2017-11-14] MEDS: VANCOMYCIN 1,250 MG in DEXTROSE 5%-WATER - 250 ML IVPB SCH (09:40)
[2017-11-14] MEDS: KCL 10 MEQ IVPB 10 MEQ/100 ML INFUS.BAG IVPB SCH ×2 (10:00→13:14)
[2017-11-14] MEDS ORDERED: METOLAZONE 2.5 MG TABLET (FP) PO SCH (11:30)
[2017-11-14] MEDS: ALBUTEROL SO4 2.5/IPRATROPIUM 0.5 INH SOL 3 ML VIAL.NEB. NEB SCH ×3 (12:45→21:55)
[2017-11-14] MEDS: METOLAZONE 5 MG TABLET PO SCH (13:17)
--- NOTE | 2017-11-14 18:00 | PN ---
Progress Note, Physician History of Present Illness: patients leg still red still leg is draining - Current Medication List Current Medications: Active Medications Acetaminophen (Tylenol -) 650 mg PO Q4H PRN PRN Reason: FEVER Albuterol/Ipratropium (Duoneb -) 1 amp NEB RQID [facility] Last Admin: 11/14/17 16:56 Dose: 1 amp Atorvastatin Calcium (Lipitor -) 10 mg PO HS [facility] Last Admin: 11/13/17 21:10 Dose: 10 mg Dabigatran (Pradaxa -) 150 mg PO BID [facility] Last Admin: 11/14/17 09:38 Dose: 150 mg Ferrous Sulfate (Feosol -) 325 mg PO DAILY [facility] Last Admin: 11/14/17 09:39 Dose: 325 mg Furosemide (Lasix -) 80 mg PO BID@0600,1400 [facility] Last Admin: 11/14/17 14:09 Dose: 80 mg Vancomycin HCl 1,250 mg/ (Dextrose) 250 mls @ 166.667 mls/hr IVPB DAILY [facility] PRN Reason: Protocol Last Admin: 11/14/17 09:40 Dose: 166.667 mls/hr Piperacillin Sod/Tazobactam Sod (Zosyn 3.375gm Ivpb (Pre-Docked)) 3.375 gm in 50 mls @ 100 mls/hr IVPB Q8H-IV NEIL PRN Reason: Protocol Last Admin: 11/14/17 17:56 Dose: 100 mls/hr Lactobacillus Acidophilus (Bacid -) 1 tab PO DAILY [facility] Last Admin: 11/14/17 09:39 Dose: 1 tab Levothyroxine Sodium (Synthroid -) 100 mcg PO AM [facility] Last Admin: 11/14/17 06:14 Dose: 100 mcg Metolazone (Zaroxolyn -) 5 mg PO BID@0530,1330 [facility] Last Admin: 11/14/17 13:17 Dose: 5 mg Metoprolol Succinate (Toprol Xl -) 100 mg PO DAILY [facility] Last Admin: 11/14/17 09:38 Dose: 100 mg Nystatin (Mycostatin Ointment -) 1 applic TP BID [facility] Last Admin: 11/14/17 09:39 Dose: 1 applic Potassium Chloride (K-Dur -) 40 meq PO BID [facility] Last Admin: 11/14/17 09:39 Dose: 40 meq - Objective Vital Signs: Vital Signs Temperature 97.8 F 11/14/17 14:00 Pulse Rate 71 11/14/17 14:00 Respiratory Rate 19 11/14/17 14:00 Blood Pressure 106/53 11/14/17 14:00 O2 Sat by Pulse Oximetry (%) 100 11/14/17 14:00 Constitutional: Yes: No Distress, Calm Cardiovascular: Yes: Regular Rate and Rhythm Respiratory: Yes: Regular, CTA Bilaterally Gastrointestinal: Yes: Normal Bowel Sounds, Soft Musculoskeletal: Yes: WNL Extremities: Yes: Other Wound/Incision: Yes: Draining Neurological: Yes: Alert, Oriented Psychiatric: Yes: Alert, Oriented Labs: CBC, BMP 11/14/17 08:00 11/14/17 08:00 Assessment/Plan patient with severe cellulitis of the rt leg with weeping Problem List - Problems (1) Cellulitis Code(s): L03.90 - CELLULITIS, UNSPECIFIED Qualifiers: Site of cellulitis: extremity Site of cellulitis of extremity: lower extremity Laterality: right Qualified Code(s): L03.115 - Cellulitis of right lower limb (2) Atrial fibrillation Code(s): I48.91 - UNSPECIFIED ATRIAL FIBRILLATION (3) Benign prostate hyperplasia Code(s): N40.0 - BENIGN PROSTATIC HYPERPLASIA WITHOUT LOWER URINRY TRACT SYMP (4) Congestive heart failure (CHF) Code(s): I50.9 - HEART FAILURE, UNSPECIFIED (5) Hypothyroidism Code(s): E03.9 - HYPOTHYROIDISM, UNSPECIFIED all the cx result noted patient leg still draining a lot plan will stop abx elevation of the leg dressing
[2017-11-14 18:49] LABS: ANION GAP 13 (8-16); BLOOD UREA NITROGEN 31 mg/dl (7-18); CALCIUM 8.3 mg/dl (8.4-10.2); CHLORIDE 94 mmol/L (98-107); CO2 29 mmol/L (22-28); CREATININE 1.3 mg/dl (0.6-1.3); GLUCOSE,RANDOM 118 mg/dl (74-106); POTASSIUM 3.4 mmol/L (3.5-5.1); SODIUM 136 mmol/L (136-145)
[2017-11-14] MEDS ORDERED: PT OWN MED DRAWER 7, Y5N ONE ×2 (21:28→22:15)
[2017-11-14] MEDS: ATORVASTATIN CA 10 MG TABLET (FP) PO SCH (21:55)
[2017-11-15] MEDS: PIPERACILLIN/TAZOB 3.375 GM 3.375 GM/50 ML BAG IVPB SCH ×3 (02:20→17:49)
[2017-11-15] MEDS: METOLAZONE 5 MG TABLET PO SCH ×2 (05:51→13:30)
[2017-11-15] MEDS: FUROSEMIDE 40 MG TABLET (FP) PO SCH ×2 (06:25→14:30)
[2017-11-15] MEDS: LEVOTHYROXINE NA 100 MCG TABLET (FP) PO SCH (06:26)
[2017-11-15] MEDS: ALBUTEROL SO4 2.5/IPRATROPIUM 0.5 INH SOL 3 ML VIAL.NEB. NEB SCH ×4 (08:45→20:40)
[2017-11-15 08:49] LABS: BASO % 0.3 % (0-2.0); EOS % 2.1 % (0-4.5); HEMOGLOBIN 10.7 GM/dl (11.7-16.9); MCHC 35.6 g/dl (32.0-35.9); MEAN CELL VOLUME 95.5 fl (80-96); MEAN PLT VOLUME 7.3 fl (7.5-11.1); MONO % 4.9 % (3.8-10.2); NEUT % 78.7 % (42.8-82.8); PLATELET COUNT 221 K/MM3 (134-434); RBC 3.14 M/mm3 (4.00-5.60); RDW 16.8 % (11.9-15.9); WHITE BLOOD COUNT 4.8 K/mm3 (4.0-10.8)
[2017-11-15] MEDS ORDERED: PT OWN MED DRAWER 7, Y5N ONE (09:13)
[2017-11-15] MEDS: ACETAMINOPHEN 325 MG TABLET (FP) PO PRN (09:30)
[2017-11-15] MEDS: POTASSIUM CHLORIDE TABS 20 MEQ TABLET.ER (FP) PO SCH ×2 (09:30→21:06)
[2017-11-15] MEDS: FERROUS SO4 325 MG TABLET (FP) PO SCH (09:30)
[2017-11-15] MEDS: DABIGATRAN ETEXILATE MESYLATE 150 MG CAPSULE PO SCH ×2 (09:30→21:06)
[2017-11-15] MEDS: NYSTATIN 100000 UNIT/GM TOPICAL OINTMENT 15 GM TUBE TP SCH ×2 (09:31→21:06)
[2017-11-15 09:50] LABS: ANION GAP 9 (8-16); BLOOD UREA NITROGEN 30 mg/dl (7-18); CHLORIDE 92 mmol/L (98-107); CO2 32 mmol/L (22-28); CREATININE 1.3 mg/dl (0.6-1.3); GLUCOSE,RANDOM 93 mg/dl (74-106); PHOSPHOROUS 3.2 mg/dl (2.5-4.6); SODIUM 133 mmol/L (136-145)
[2017-11-15 10:13] LABS: POTASSIUM 2.8 mmol/L (3.5-5.1)
--- NOTE | 2017-11-15 11:53 | PN ---
Physical Exam: SUBJECTIVE: Patient seen and examined, sitting in bedside chair denies any chest pain or shortness of breath, does reports ongoing right leg redness OBJECTIVE: patient is a 86 year old male pMHx significant for HTN, HLD, afib on Pradaxa, biventricular systolic heart failure, severe TR, CVA (2010), right pleural effusion s/p thoracentesis (2014), and hypothyroidism admitted with polymicrobrial RLE cellulitis. Vital Signs Period Temp Pulse Resp BP Sys/Servin Pulse Ox Last 24 Hr 97.3 F-98.4 F 71-86 19-20 100-106/50-53 99-100 GENERAL: The patient is awake, alert, and fully oriented, in no acute distress. HEAD: Normal with no signs of trauma. EYES: PERRL, extraocular movements intact, sclera anicteric, conjunctiva clear. No ptosis. ENT: Ears normal, nares patent, oropharynx clear without exudates, moist mucous membranes. NECK: Trachea midline, full range of motion, supple. LUNGS: Breath sounds equal, diminished to bases, bilateral inspiratory wheeze to apexes, no crackles, no accessory muscle use. HEART: Regular rate and rhythm, S1, S2 without murmur, rub or gallop. ABDOMEN: Soft, nontender, nondistended, normoactive bowel sounds, no guarding, no rebound, no hepatosplenomegaly, no masses. EXTREMITIES: 2+ pulses, warm, well-perfused, right lower extremity--> erythema + 3 pitting edema, weeping NEUROLOGICAL: Cranial nerves II through XII grossly intact. Normal speech, gait not observed. PSYCH: Normal mood, normal affect. SKIN: Warm, dry, normal turgor, no rashes or lesions noted Laboratory Results - last 24 hr 11/14/17 11/15/17 11/15/17 18:00 08:15 08:15 WBC 4.8 RBC 3.14 L Hgb 10.7 L Hct 30.0 L MCV 95.5 MCH 34.0 H MCHC 35.6 RDW 16.8 H Plt Count 221 MPV 7.3 L Neutrophils % 78.7 Lymphocytes % 14.0 Monocytes % 4.9 Eosinophils % 2.1 Basophils % 0.3 Sodium 136 Potassium 3.4 L Chloride 94 L Carbon Dioxide 29 H Anion Gap 13 BUN 31 H Creatinine 1.3 Random Glucose 118 H D Calcium 8.3 L Phosphorus Magnesium Vancomycin Pre-Dose 16.138 H* D 11/15/17 08:15 WBC RBC Hgb Hct MCV MCH MCHC RDW Plt Count MPV Neutrophils % Lymphocytes % Monocytes % Eosinophils % Basophils % Sodium 133 L Potassium 2.8 L* Chloride 92 L Carbon Dioxide 32 H Anion Gap 9 BUN 30 H Creatinine 1.3 Random Glucose 93 D Calcium 8.0 L Phosphorus 3.2 Magnesium 2.0 Vancomycin Pre-Dose Active Medications Generic Name Dose Route Start Last Admin Trade Name Freq PRN Reason Stop Dose Admin Acetaminophen 650 mg 11/12/17 11:42 11/15/17 09:30 Tylenol - PO 650 mg Q4H PRN Administration FEVER Albuterol/Ipratropium 1 amp 11/14/17 12:15 11/15/17 08:45 Duoneb - NEB 1 amp RQID NEIL Administration Atorvastatin Calcium 10 mg 11/10/17 22:00 11/14/17 21:55 Lipitor - PO 10 mg HS NEIL Administration Dabigatran 150 mg 11/10/17 22:00 11/15/17 09:30 Pradaxa - PO 150 mg BID NEIL Administration Ferrous Sulfate 325 mg 11/11/17 10:00 11/15/17 09:30 Feosol - PO 325 mg DAILY NEIL Administration Furosemide 80 mg 11/13/17 14:00 11/15/17 06:25 Lasix - PO 80 mg BID@0600,1400 NEIL Administration Piperacillin Sod/Tazobactam Sod 3.375 gm in 50 mls @ 100 mls/hr 11/13/17 18: 00 11/15/17 09:31 Zosyn 3.375gm Ivpb (Pre-Docked) IVPB 100 mls/hr Q8H-IV NEIL Administration Protocol Potassium Chloride 10 meq in 100 mls @ 100 mls/hr 11/15/17 10:35 Potassium Chloride 10 Meq Premix Ivpb - IVPB 11/15/17 13:34 Q60M NEIL Lactobacillus Acidophilus 1 tab 11/13/17 10:00 11/14/17 09:39 Bacid - PO 1 tab DAILY NEIL Administration Levothyroxine Sodium 100 mcg 11/11/17 07:00 11/15/17 06:26 Synthroid - PO 100 mcg AM NEIL Administration Metolazone 5 mg 11/14/17 13:30 11/15/17 05:51 Zaroxolyn - PO 5 mg BID@0530,1330 NEIL Administration Metoprolol Succinate 100 mg 11/11/17 10:00 11/15/17 09:30 Toprol Xl - PO 100 mg DAILY NEIL Administration Nystatin 1 applic 11/13/17 22:00 11/15/17 09:31 Mycostatin Ointment - TP 1 applic BID NEIL Administration Potassium Chloride 40 meq 11/13/17 11:30 11/15/17 09:30 K-Dur - PO 40 meq BID NEIL Administration Microbiology 11/10/17 14:27 Blood - Peripheral Venous Blood Culture - Final NO GROWTH AFTER 5 DAYS INCUBATION 11/10/17 14:00 Blood - Peripheral Venous Blood Culture - Final NO GROWTH AFTER 5 DAYS INCUBATION 11/10/17 14:15 Leg - Right Lower Gram Stain - Final 11/10/17 14:15 Leg - Right Lower Wound Culture - Final Serratia Marcescens Pseudomonas Aeruginosa Enterococcus Faecalis IMAGING chest xray: mild pulmonary vascular congestion tib/fib xray: no acute pathology ultrasound of right lower ext: extensive fluid collection of the subcutaneous soft tissue ASSESSMENT/PLAN: 1.ID RLE cellulitis - d/c Vancomycin (11/11 - 11/14), continue Zosyn, polymicrobrial wound culture noted - emilie bandage, xeroform and Elevate leg 2. Acute on chronic Biventricular systolic heart failure - continue Lasix 80mg po bid today, restart metolazone if well-tolerated 3. Atrial Fibrillation, chronic - continue Pradaxa and Toprol xl 100mg daily - Recent cardiology evaluation with Dr. Knox this past Monday 4. Hypothyroid - Continue Synthroid 5. GILMER - Near baseline, stable, follow 6. Iron deficiency anemia - On ferrous sulfate 7. Ppx - Pradaxa 8. Hypokalemia - In context of diuretic use - potassium 10meq KCI x 3, continue po potassium and repeat bmp at 2000 DISPO: Requires inpatient services. Visit type - Emergency Visit Emergency Visit: Yes ED Registration Date: 11/10/17 Care time: The patient presented to the Emergency Department on the above date and was hospitalized for further evaluation of their emergent condition. - New Patient This patient is new to me today: No - Critical Care Critical Care patient: No - Discharge Referral Referred to [facility] Med P.C.: No
--- NOTE | 2017-11-15 11:58 | CONSULT ---
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: CVA (2010, right distal MCA occlusion) Cardio/Vascular: Yes: AFIB, CHF (mild LV systolic dysunction, moderate RV systolic dysfunction), Hyperlipdemia, Pulmonary Hypertension, Other ( pericarditis 1980) Gastrointestinal: Yes: GERD, Hemorrhoids, Peptic Ulcer Disease Renal/: Yes: BPH Musculoskeletal: Yes: Osteoarthritis Endocrine: Yes: Hypothyroidism - Past Surgical History Past Surgical History: Yes: Colectomy (partial colectomy for volvulus), Hernia Repair (Left repair 10/2014), Joint Replacement (bilateral THRs 1991), Prostatectomy (1979), Vasectomy (1979) - Alcohol/Substance Use Hx Alcohol Use: No History of Substance Use: reports: None - Smoking History Smoking history: Never smoked Have you smoked in the past 12 months: No - Social History ADL: Independent Home Medications - Allergies Allergies/Adverse Reactions: Allergies Allergy/AdvReac Type Severity Reaction Status Date / Time No Known Allergies Allergy Verified 11/10/17 13:37 - Home Medications Home Medications: Ambulatory Orders Calcium Carbonate [Calcium] 500 mg PO BID tablet 11/06/14 Multivitamin [Daily Vitamin] 1 each PO DAILY tablet 11/06/14 [place]-3/Dha/Epa/Lut/Zeaxanthin [[facility] Softgel] 1 each PO 2 CAPS BID capsule 04/26/17 Ferrous Sulfate 325 mg PO DAILY 08/31/17 Furosemide [Lasix] 80 mg PO BID #60 tablet 09/06/17 Metoprolol Succinate [Toprol Xl -] 100 mg PO DAILY #30 tab.sr.24h 09/06/17 Cephalexin 250 mg PO TID 11/10/17 Metolazone [Zaroxolyn -] 5 mg PO BID 11/10/17 Family Disease History - Family Disease History Family Disease History: Heart Disease: Father (heart disease 72), Other: Mother (ca pancreas 89) Physical Exam Vital Signs: Vital Signs Temperature 97.3 F L 11/15/17 06:00 Pulse Rate 86 11/15/17 06:00 Respiratory Rate 20 11/15/17 08:25 Blood Pressure 100/53 11/15/17 06:00 O2 Sat by Pulse Oximetry (%) 100 11/15/17 08:25 Eyes: Yes: Other (Visual Acuity 20/40 cc OU. PERRLA, EOM, Slit lamp exam significant for pseodophakia OU. Intraocular pressure was 20 mmHg OD and 18mmHg OS. Dilated Posterior fundus exam was significant for macular drusen OU.) Labs: CBC, BMP 11/15/17 08:15 11/15/17 08:15 Problem List - Problems (1) Macular degeneration of both eyes Code(s): H35.30 - UNSPECIFIED MACULAR DEGENERATION Qualifiers: Macular degeneration type: nonexudative age-related Nonexudative macular degeneration stage: intermediate dry stage Qualified Code(s): H35.3132 - Nonexudative age-related macular degeneration, bilateral, intermediate dry stage (2) Macular degeneration, age related Code(s): H35.30 - UNSPECIFIED MACULAR DEGENERATION Assessment/Plan Age related macular degeneration OU. AREDS 2 formula vitamins recommended.
[2017-11-15] MEDS: KCL 10 MEQ IVPB 10 MEQ/100 ML INFUS.BAG IVPB SCH ×5 (12:30→20:40)
--- NOTE | 2017-11-15 17:53 | PN ---
Progress Note, Physician History of Present Illness: slowly improving still with cellulitits and drainage foot looking better from the wound some dry cough - Current Medication List Current Medications: Active Medications Acetaminophen (Tylenol -) 650 mg PO Q4H PRN PRN Reason: FEVER Last Admin: 11/15/17 09:30 Dose: 650 mg Albuterol/Ipratropium (Duoneb -) 1 amp NEB RQID [facility] Last Admin: 11/15/17 16:30 Dose: 1 amp Atorvastatin Calcium (Lipitor -) 10 mg PO HS [facility] Last Admin: 11/14/17 21:55 Dose: 10 mg Dabigatran (Pradaxa -) 150 mg PO BID [facility] Last Admin: 11/15/17 09:30 Dose: 150 mg Ferrous Sulfate (Feosol -) 325 mg PO DAILY [facility] Last Admin: 11/15/17 09:30 Dose: 325 mg Furosemide (Lasix -) 80 mg PO BID@0600,1400 [facility] Last Admin: 11/15/17 14:30 Dose: 80 mg Piperacillin Sod/Tazobactam Sod (Zosyn 3.375gm Ivpb (Pre-Docked)) 3.375 gm in 50 mls @ 100 mls/hr IVPB Q8H-IV NEIL PRN Reason: Protocol Last Admin: 11/15/17 17:49 Dose: 100 mls/hr Lactobacillus Acidophilus (Bacid -) 1 tab PO DAILY [facility] Last Admin: 11/14/17 09:39 Dose: 1 tab Levothyroxine Sodium (Synthroid -) 100 mcg PO AM [facility] Last Admin: 11/15/17 06:26 Dose: 100 mcg Metolazone (Zaroxolyn -) 5 mg PO BID@0530,1330 [facility] Last Admin: 11/15/17 13:30 Dose: 5 mg Metoprolol Succinate (Toprol Xl -) 100 mg PO DAILY [facility] Last Admin: 11/15/17 09:30 Dose: 100 mg Nystatin (Mycostatin Ointment -) 1 applic TP BID [facility] Last Admin: 11/15/17 09:31 Dose: 1 applic Potassium Chloride (K-Dur -) 40 meq PO BID [facility] Last Admin: 11/15/17 09:30 Dose: 40 meq - Objective Vital Signs: Vital Signs Temperature 97.9 F 11/15/17 14:00 Pulse Rate 56 L 11/15/17 14:00 Respiratory Rate 19 0207/18 14:00 Blood Pressure 99/54 11/15/17 14:00 O2 Sat by Pulse Oximetry (%) 99 11/15/17 14:00 Constitutional: Yes: No Distress, Calm Cardiovascular: Yes: S1, S2 Respiratory: Yes: Regular, CTA Bilaterally Gastrointestinal: Yes: Normal Bowel Sounds, Soft Musculoskeletal: Yes: WNL Extremities: Yes: Other Neurological: Yes: Alert, Oriented Psychiatric: Yes: Alert, Oriented Labs: CBC, BMP 11/15/17 08:15 11/15/17 08:15 Assessment/Plan patient with severe cellulitis of the rt leg with weeping Problem List - Problems (1) Cellulitis Code(s): L03.90 - CELLULITIS, UNSPECIFIED Qualifiers: Site of cellulitis: extremity Site of cellulitis of extremity: lower extremity Laterality: right Qualified Code(s): L03.115 - Cellulitis of right lower limb (2) Atrial fibrillation Code(s): I48.91 - UNSPECIFIED ATRIAL FIBRILLATION (3) Benign prostate hyperplasia Code(s): N40.0 - BENIGN PROSTATIC HYPERPLASIA WITHOUT LOWER URINRY TRACT SYMP (4) Congestive heart failure (CHF) Code(s): I50.9 - HEART FAILURE, UNSPECIFIED (5) Hypothyroidism Code(s): E03.9 - HYPOTHYROIDISM, UNSPECIFIED all the cx result noted patient leg still draining a lot plan continue zosyn elevation of leg consider getting wound care on the case rest continue current mgmt
[2017-11-15 19:17] LABS: ANION GAP 7 (8-16); BLOOD UREA NITROGEN 32 mg/dl (7-18); CALCIUM 8.2 mg/dl (8.4-10.2); CHLORIDE 90 mmol/L (98-107); CO2 34 mmol/L (22-28); CREATININE 1.5 mg/dl (0.6-1.3); GLUCOSE,RANDOM 146 mg/dl (74-106); SODIUM 131 mmol/L (136-145)
[2017-11-15 19:19] LABS: POTASSIUM 2.9 mmol/L (3.5-5.1)
[2017-11-15] MEDS: ATORVASTATIN CA 10 MG TABLET (FP) PO SCH (21:06)
[2017-11-16] MEDS: PIPERACILLIN/TAZOB 3.375 GM 3.375 GM/50 ML BAG IVPB SCH ×3 (01:44→18:35)
[2017-11-16] MEDS: METOLAZONE 5 MG TABLET PO SCH (05:47)
[2017-11-16] MEDS: FUROSEMIDE 40 MG TABLET (FP) PO SCH (06:18)
[2017-11-16] MEDS: LEVOTHYROXINE NA 100 MCG TABLET (FP) PO SCH (06:18)
[2017-11-16] MEDS: ALBUTEROL SO4 2.5/IPRATROPIUM 0.5 INH SOL 3 ML VIAL.NEB. NEB SCH ×4 (08:45→20:10)
[2017-11-16] MEDS: DABIGATRAN ETEXILATE MESYLATE 150 MG CAPSULE PO SCH ×2 (09:40→21:11)
[2017-11-16] MEDS: FERROUS SO4 325 MG TABLET (FP) PO SCH (09:40)
[2017-11-16] MEDS: POTASSIUM CHLORIDE TABS 20 MEQ TABLET.ER (FP) PO SCH ×2 (09:40→21:11)
[2017-11-16] MEDS: LACTOBACILLUS ACIDOPHILUS 1 EACH TAB (FP) PO SCH (10:00)
[2017-11-16] MEDS: NYSTATIN 100000 UNIT/GM TOPICAL OINTMENT 15 GM TUBE TP SCH ×2 (10:00→21:11)
[2017-11-16 13:36] LABS: HEMATOCRIT 31.4 % (35.4-49); HEMOGLOBIN 10.9 GM/dl (11.7-16.9); MCHC 34.9 g/dl (32.0-35.9); MEAN CELL VOLUME 94.7 fl (80-96); MEAN PLT VOLUME 7.3 fl (7.5-11.1); PLATELET COUNT 295 K/MM3 (134-434); RBC 3.32 M/mm3 (4.00-5.60); RDW 16.5 % (11.9-15.9); WHITE BLOOD COUNT 5.8 K/mm3 (4.0-10.8)
--- NOTE | 2017-11-16 13:41 | PN ---
Physical Exam: SUBJECTIVE: Patient seen and examined, reports ongoing moist cough denies any chest pain or shortness of breath. OBJECTIVE: patient is a 86 year old male pMHx significant for HTN, HLD, afib on Pradaxa, biventricular systolic heart failure, severe TR, CVA (2010), right pleural effusion s/p thoracentesis (2015), and hypothyroidism admitted with polymicrobrial RLE cellulitis. Vital Signs Period Temp Pulse Resp BP Sys/Servin Pulse Ox Last 24 Hr 97.7 F-98.0 F 54-87 19-19 99-106/54-69 96-99 GENERAL: The patient is awake, alert, and fully oriented, in no acute distress. HEAD: Normal with no signs of trauma. EYES: PERRL, extraocular movements intact, sclera anicteric, conjunctiva clear. No ptosis. ENT: Ears normal, nares patent, oropharynx clear without exudates, moist mucous membranes. NECK: Trachea midline, full range of motion, supple. LUNGS: Breath sounds equal, diminished to bases, bilateral inspiratory wheeze to apexes, no crackles, no accessory muscle use. HEART: Regular rate and rhythm, S1, S2 without murmur, rub or gallop. ABDOMEN: Soft, nontender, nondistended, normoactive bowel sounds, no guarding, no rebound, no hepatosplenomegaly, no masses. EXTREMITIES: 2+ pulses, warm, well-perfused, right lower extremity--> erythema, much improved, +2 pitting edema, weeping NEUROLOGICAL: Cranial nerves II through XII grossly intact. Normal speech, gait not observed. PSYCH: Normal mood, normal affect. SKIN: Warm, dry, normal turgor, no rashes or lesions noted Laboratory Results - last 24 hr 11/15/17 18:51 Sodium 131 L Potassium 2.9 L* Chloride 90 L Carbon Dioxide 34 H Anion Gap 7 L BUN 32 H Creatinine 1.5 H Random Glucose 146 H D Calcium 8.2 L Active Medications Generic Name Dose Route Start Last Admin Trade Name Freq PRN Reason Stop Dose Admin Acetaminophen 650 mg 11/12/17 11:42 11/15/17 09:30 Tylenol - PO 650 mg Q4H PRN Administration FEVER Albuterol/Ipratropium 1 amp 11/14/17 12:15 11/16/17 08:45 Duoneb - NEB 1 amp RQID NEIL Administration Atorvastatin Calcium 10 mg 11/10/17 22:00 11/15/17 21:06 Lipitor - PO 10 mg HS NEIL Administration Dabigatran 150 mg 11/10/17 22:00 11/16/17 09:40 Pradaxa - PO 150 mg BID NEIL Administration Ferrous Sulfate 325 mg 11/11/17 10:00 11/16/17 09:40 Feosol - PO 325 mg DAILY NEIL Administration Furosemide 80 mg 11/13/17 14:00 11/16/17 06:18 Lasix - PO 80 mg BID@0600,1400 NEIL Administration Guaifenesin 600 mg 11/16/17 13:15 Mucinex - PO BID NEIL Piperacillin Sod/Tazobactam Sod 3.375 gm in 50 mls @ 100 mls/hr 11/13/17 18: 00 11/16/17 09:40 Zosyn 3.375gm Ivpb (Pre-Docked) IVPB 100 mls/hr Q8H-IV NEIL Administration Protocol Lactobacillus Acidophilus 1 tab 11/13/17 10:00 11/14/17 09:39 Bacid - PO 1 tab DAILY NEIL Administration Levothyroxine Sodium 100 mcg 11/11/17 07:00 11/16/17 06:18 Synthroid - PO 100 mcg AM NEIL Administration Metolazone 5 mg 11/14/17 13:30 11/16/17 05:47 Zaroxolyn - PO 5 mg BID@0530,1330 NEIL Administration Metoprolol Succinate 100 mg 11/11/17 10:00 11/16/17 09:40 Toprol Xl - PO 100 mg DAILY NEIL Administration Nystatin 1 applic 11/13/17 22:00 11/15/17 21:06 Mycostatin Ointment - TP 1 applic BID NEIL Administration Potassium Chloride 40 meq 11/13/17 11:30 11/16/17 09:40 K-Dur - PO 40 meq BID NEIL Administration Microbiology 11/10/17 14:27 Blood - Peripheral Venous Blood Culture - Final NO GROWTH AFTER 5 DAYS INCUBATION 11/10/17 14:00 Blood - Peripheral Venous Blood Culture - Final NO GROWTH AFTER 5 DAYS INCUBATION 11/10/17 14:15 Leg - Right Lower Gram Stain - Final 11/10/17 14:15 Leg - Right Lower Wound Culture - Final Serratia Marcescens Pseudomonas Aeruginosa Enterococcus Faecalis IMAGING chest xray: mild pulmonary vascular congestion tib/fib xray: no acute pathology ultrasound of right lower ext: extensive fluid collection of the subcutaneous soft tissue ASSESSMENT/PLAN: 1.ID RLE cellulitis, polymicrobrial wound - Vancomycin (2/ - 2/), continue Zosyn, polymicrobrial wound culture noted - emilie bandage, xeroform and Elevate leg 2. Acute on chronic Biventricular systolic heart failure - decrease Lasix and metolazone for labile b/p. if well-tolerated 3. Atrial Fibrillation, chronic - continue Pradaxa and Toprol xl 100mg daily - Recent cardiology evaluation with Dr. Knox this past Monday 4. Hypothyroid - Continue Synthroid 5. GILMER - Near baseline, stable, follow 6. Iron deficiency anemia - On ferrous sulfate 7. Ppx - Pradaxa 8. Hypokalemia - In context of diuretic use - potassium 10meq KCI x 3, continue po potassium and repeat bmp at 2000 DISPO: Requires inpatient services. Visit type - Emergency Visit Emergency Visit: Yes ED Registration Date: 11/10/17 Care time: The patient presented to the Emergency Department on the above date and was hospitalized for further evaluation of their emergent condition. - New Patient This patient is new to me today: No - Critical Care Critical Care patient: No - Discharge Referral Referred to [facility] Med [facility] No
[2017-11-16] MEDS: guaiFENesin 600 MG TABLET.ER (FP) PO SCH ×2 (14:00→21:11)
[2017-11-16 14:17] LABS: ANION GAP 13 (8-16); BLOOD UREA NITROGEN 33 mg/dl (7-18); CALCIUM 8.3 mg/dl (8.4-10.2); CHLORIDE 91 mmol/L (98-107); CO2 30 mmol/L (22-28); CREATININE 1.3 mg/dl (0.6-1.3); GLUCOSE,RANDOM 146 mg/dl (74-106); SODIUM 134 mmol/L (136-145)
--- NOTE | 2017-11-16 14:26 | PN ---
Progress Note, Physician History of Present Illness: leg continues to improve patient feels better - Current Medication List Current Medications: Active Medications Acetaminophen (Tylenol -) 650 mg PO Q4H PRN PRN Reason: FEVER Last Admin: 11/15/17 09:30 Dose: 650 mg Albuterol/Ipratropium (Duoneb -) 1 amp NEB RQID [facility] Last Admin: 11/16/17 12:40 Dose: Not Given Atorvastatin Calcium (Lipitor -) 10 mg PO HS [facility] Last Admin: 11/15/17 21:06 Dose: 10 mg Dabigatran (Pradaxa -) 150 mg PO BID [facility] Last Admin: 11/16/17 09:40 Dose: 150 mg Ferrous Sulfate (Feosol -) 325 mg PO DAILY [facility] Last Admin: 11/16/17 09:40 Dose: 325 mg Furosemide (Lasix -) 80 mg PO DAILY [facility] Guaifenesin (Mucinex -) 600 mg PO BID [facility] Piperacillin Sod/Tazobactam Sod (Zosyn 3.375gm Ivpb (Pre-Docked)) 3.375 gm in 50 mls @ 100 mls/hr IVPB Q8H-IV NEIL PRN Reason: Protocol Last Admin: 11/16/17 09:40 Dose: 100 mls/hr Lactobacillus Acidophilus (Bacid -) 1 tab PO DAILY [facility] Last Admin: 11/14/17 09:39 Dose: 1 tab Levothyroxine Sodium (Synthroid -) 100 mcg PO AM [facility] Last Admin: 11/16/17 06:18 Dose: 100 mcg Metolazone (Zaroxolyn -) 5 mg PO DAILY@0930 [facility] Metoprolol Succinate (Toprol Xl -) 100 mg PO DAILY [facility] Last Admin: 11/16/17 09:40 Dose: 100 mg Nystatin (Mycostatin Ointment -) 1 applic TP BID [facility] Last Admin: 11/15/17 21:06 Dose: 1 applic Potassium Chloride (K-Dur -) 40 meq PO BID [facility] Last Admin: 11/16/17 09:40 Dose: 40 meq - Objective Vital Signs: Vital Signs Temperature 97.7 F 11/16/17 06:00 Pulse Rate 87 11/16/17 06:00 Respiratory Rate 19 11/16/17 08:27 Blood Pressure 106/69 11/16/17 06:00 O2 Sat by Pulse Oximetry (%) 96 11/16/17 08:27 Constitutional: Yes: No Distress, Calm Neck: Yes: Supple Cardiovascular: Yes: S1, S2 Respiratory: Yes: Regular, CTA Bilaterally Gastrointestinal: Yes: Normal Bowel Sounds, Soft Musculoskeletal: Yes: Other Extremities: Yes: Erythema (rt) Edema: RLE: 2+ Integumentary: Yes: Erythema Wound/Incision: Yes: Dressing Dry and Intact Neurological: Yes: Alert, Oriented Labs: CBC, BMP 11/16/17 13:00 Assessment/Plan patient with severe cellulitis of the rt leg with weeping Problem List - Problems (1) Cellulitis Code(s): L03.90 - CELLULITIS, UNSPECIFIED Qualifiers: Site of cellulitis: extremity Site of cellulitis of extremity: lower extremity Laterality: right Qualified Code(s): L03.115 - Cellulitis of right lower limb (2) Atrial fibrillation Code(s): I48.91 - UNSPECIFIED ATRIAL FIBRILLATION (3) Benign prostate hyperplasia Code(s): N40.0 - BENIGN PROSTATIC HYPERPLASIA WITHOUT LOWER URINRY TRACT SYMP (4) Congestive heart failure (CHF) Code(s): I50.9 - HEART FAILURE, UNSPECIFIED (5) Hypothyroidism Code(s): E03.9 - HYPOTHYROIDISM, UNSPECIFIED leg starting to improve plan continue zosyn monitor drainage elevation of the leg rest continue current mgmt
[2017-11-16 14:35] LABS: POTASSIUM 2.8 mmol/L (3.5-5.1)
[2017-11-16] MEDS ORDERED: SODIUM BICARBONATE 2.4 MEQ/5 ML SDVIAL IV ONE (14:37)
[2017-11-16] MEDS ORDERED: POTASSIUM CHLORIDE TABS 20 MEQ TABLET.ER (FP) PO ONE (14:38)
[2017-11-16] MEDS ORDERED: KCL 10 MEQ IVPB 10 MEQ/100 ML INFUS.BAG IVPB SCH (15:00)
[2017-11-16] MEDS: ATORVASTATIN CA 10 MG TABLET (FP) PO SCH (21:10)
[2017-11-17] MEDS: PIPERACILLIN/TAZOB 3.375 GM 3.375 GM/50 ML BAG IVPB SCH ×3 (01:21→17:55)
[2017-11-17] MEDS: LEVOTHYROXINE NA 100 MCG TABLET (FP) PO SCH (06:56)
[2017-11-17] MEDS: ALBUTEROL SO4 2.5/IPRATROPIUM 0.5 INH SOL 3 ML VIAL.NEB. NEB SCH ×4 (08:50→19:30)
[2017-11-17 09:12] LABS: HEMATOCRIT 29.9 % (35.4-49); HEMOGLOBIN 10.6 GM/dl (11.7-16.9); MCH 33.7 pg (25.7-33.7); MCHC 35.2 g/dl (32.0-35.9); MEAN CELL VOLUME 95.7 fl (80-96); MEAN PLT VOLUME 7.2 fl (7.5-11.1); PLATELET COUNT 274 K/MM3 (134-434); RBC 3.13 M/mm3 (4.00-5.60); RDW 16.3 % (11.9-15.9); WHITE BLOOD COUNT 5.9 K/mm3 (4.0-10.8)
[2017-11-17] MEDS: FERROUS SO4 325 MG TABLET (FP) PO SCH (09:25)
[2017-11-17] MEDS: METOLAZONE 5 MG TABLET PO SCH (09:25)
[2017-11-17] MEDS: guaiFENesin 600 MG TABLET.ER (FP) PO SCH ×2 (09:26→21:06)
[2017-11-17] MEDS: LACTOBACILLUS ACIDOPHILUS 1 EACH TAB (FP) PO SCH (09:26)
[2017-11-17] MEDS: POTASSIUM CHLORIDE TABS 20 MEQ TABLET.ER (FP) PO SCH ×2 (09:26→21:10)
[2017-11-17] MEDS: DABIGATRAN ETEXILATE MESYLATE 150 MG CAPSULE PO SCH ×3 (09:27→21:06)
[2017-11-17] MEDS: NYSTATIN 100000 UNIT/GM TOPICAL OINTMENT 15 GM TUBE TP SCH ×2 (09:27→21:20)
[2017-11-17 09:53] LABS: ANION GAP 9 (8-16); BLOOD UREA NITROGEN 34 mg/dl (7-18); CALCIUM 8.2 mg/dl (8.4-10.2); CHLORIDE 90 mmol/L (98-107); CO2 34 mmol/L (22-28); CREATININE 1.4 mg/dl (0.6-1.3); GLUCOSE,RANDOM 99 mg/dl (74-106); SODIUM 133 mmol/L (136-145)
[2017-11-17] MEDS: FUROSEMIDE 40 MG TABLET (FP) PO SCH (10:14)
--- NOTE | 2017-11-17 12:34 | PN ---
Physical Exam: SUBJECTIVE: Patient seen and examined, ambulatory at bedside with a walker, denies any chest pain or shortness of breath. reports redness to the right lower extremity, denies fever OBJECTIVE: patient is a 86 year old male pMHx significant for HTN, HLD, afib on Pradaxa, biventricular systolic heart failure, severe TR, CVA (2010), right pleural effusion, s/p thoracentesis (2015), and hypothyroidism admitted with polymicrobrial RLE cellulitis. Vital Signs Period Temp Pulse Resp BP Sys/Servin Pulse Ox Last 24 Hr 97.7 F-98.1 F 72-87 18-20 104-112/50-77 98-100 GENERAL: The patient is awake, alert, and fully oriented, in no acute distress. HEAD: Normal with no signs of trauma. EYES: PERRL, extraocular movements intact, sclera anicteric, conjunctiva clear. No ptosis. ENT: Ears normal, nares patent, oropharynx clear without exudates, moist mucous membranes. NECK: Trachea midline, full range of motion, supple. LUNGS: Breath sounds equal, clear to auscultation bilaterally, no wheezes, no crackles, no accessory muscle use. HEART: irregular rate and rhythm, S1, S2 without murmur, rub or gallop. ABDOMEN: Soft, nontender, nondistended, normoactive bowel sounds, no guarding, no rebound, no hepatosplenomegaly, no masses. EXTREMITIES: 2+ pulses, warm, right distal lower extremity--> erythema much improved, scant dressing, +2 edema. NEUROLOGICAL: Cranial nerves II through XII grossly intact. Normal speech, gait not observed. PSYCH: Normal mood, normal affect. SKIN: Warm, dry, normal turgor, no rashes or lesions noted Laboratory Results - last 24 hr 11/16/17 11/16/17 11/17/17 13:00 13:00 08:00 WBC 5.8 5.9 RBC 3.32 L 3.13 L Hgb 10.9 L 10.6 L Hct 31.4 L 29.9 L MCV 94.7 95.7 MCH 33.0 33.7 MCHC 34.9 35.2 RDW 16.5 H 16.3 H Plt Count 295 D 274 MPV 7.3 L 7.2 L Sodium 134 L Potassium 2.8 L* Chloride 91 L Carbon Dioxide 30 H Anion Gap 13 BUN 33 H Creatinine 1.3 Random Glucose 146 H Calcium 8.3 L 11/17/17 08:00 WBC RBC Hgb Hct MCV MCH MCHC RDW Plt Count MPV Sodium 133 L Potassium 3.0 L Chloride 90 L Carbon Dioxide 34 H Anion Gap 9 BUN 34 H Creatinine 1.4 H Random Glucose 99 D Calcium 8.2 L Active Medications Generic Name Dose Route Start Last Admin Trade Name Freq PRN Reason Stop Dose Admin Acetaminophen 650 mg 11/12/17 11:42 11/15/17 09:30 Tylenol - PO 650 mg Q4H PRN Administration FEVER Albuterol/Ipratropium 1 amp 11/14/17 12:15 11/16/17 20:10 Duoneb - NEB 1 amp RQID NEIL Administration Atorvastatin Calcium 10 mg 11/10/17 22:00 11/16/17 21:10 Lipitor - PO 10 mg HS NEIL Administration Dabigatran 150 mg 11/10/17 22:00 11/17/17 09:30 Pradaxa - PO 150 mg BID NEIL Administration Ferrous Sulfate 325 mg 11/11/17 10:00 11/17/17 09:25 Feosol - PO 325 mg DAILY NEIL Administration Furosemide 80 mg 11/17/17 10:00 11/17/17 10:14 Lasix - PO 80 mg DAILY NEIL Administration Guaifenesin 600 mg 11/16/17 13:15 11/17/17 09:26 Mucinex - PO 600 mg BID NEIL Administration Piperacillin Sod/Tazobactam Sod 3.375 gm in 50 mls @ 100 mls/hr 11/13/17 18: 00 11/17/17 09:25 Zosyn 3.375gm Ivpb (Pre-Docked) IVPB 100 mls/hr Q8H-IV NEIL Administration Protocol Lactobacillus Acidophilus 1 tab 11/13/17 10:00 11/17/17 09:26 Bacid - PO 1 tab DAILY NELI Administration Levothyroxine Sodium 100 mcg 11/11/17 07:00 11/17/17 06:56 Synthroid - PO 100 mcg AM NEIL Administration Metolazone 5 mg 11/17/17 09:30 11/17/17 09:25 Zaroxolyn - PO 5 mg DAILY@0930 NEIL Administration Metoprolol Succinate 100 mg 11/11/17 10:00 11/17/17 09:26 Toprol Xl - PO 100 mg DAILY NEIL Administration Nystatin 1 applic 11/13/17 22:00 11/17/17 09:27 Mycostatin Ointment - TP 1 applic BID NEIL Administration Potassium Chloride 40 meq 11/13/17 11:30 11/17/17 09:26 K-Dur - PO 40 meq BID NEIL Administration Microbiology 11/10/17 14:27 Blood - Peripheral Venous Blood Culture - Final NO GROWTH AFTER 5 DAYS INCUBATION 11/10/17 14:00 Blood - Peripheral Venous Blood Culture - Final NO GROWTH AFTER 5 DAYS INCUBATION 11/10/17 14:15 Leg - Right Lower Gram Stain - Final 11/10/17 14:15 Leg - Right Lower Wound Culture - Final Serratia Marcescens Pseudomonas Aeruginosa Enterococcus Faecalis IMAGING chest xray: mild pulmonary vascular congestion tib/fib xray: no acute pathology ultrasound of right lower ext: extensive fluid collection of the subcutaneous soft tissue ASSESSMENT/PLAN: 1.ID RLE cellulitis, polymicrobrial wound - Vancomycin (11/11 - 11/14), continue Zosyn (11/13-), erythema is much improved, polymicrobrial wound culture noted - emilie bandage, xeroform and Elevate leg 2. Acute on chronic Biventricular systolic heart failure - chest xray from 11/16/17, mild bilateral pleural effusions right greater than left, unchanged from prior, continue Lasix and metolazone - strict I/O and daily weights 3. Atrial Fibrillation, chronic - rate controlled, continue Pradaxa and Toprol xl 100mg daily - Recent cardiology evaluation with Dr. Knox this past Monday 4. Hypothyroid - Continue Synthroid 5. GILMER - Near baseline, stable, follow 6. Iron deficiency anemia - On ferrous sulfate 7. Ppx - Pradaxa 8. Hypokalemia - In context of diuretic use - potassium 10meq KCI x 2, continue po potassium and repeat bmp at 2000 DISPO: Requires inpatient services. Visit type - Emergency Visit Emergency Visit: Yes ED Registration Date: 11/10/17 Care time: The patient presented to the Emergency Department on the above date and was hospitalized for further evaluation of their emergent condition. - New Patient This patient is new to me today: No - Critical Care Critical Care patient: No - Discharge Referral Referred to [facility] No
[2017-11-17] MEDS ORDERED: SODIUM BICARBONATE 2.4 MEQ/5 ML SDVIAL IV ONE (12:38)
[2017-11-17] MEDS ORDERED: POTASSIUM CHLORIDE TABS 20 MEQ TABLET.ER (FP) PO ONE (13:00)
[2017-11-17] MEDS: KCL 10 MEQ IVPB 10 MEQ/100 ML INFUS.BAG IVPB SCH ×2 (14:00→16:45)
[2017-11-17] MEDS: SODIUM BICARBONATE NR SCH ×2 (14:30→16:46)
--- NOTE | 2017-11-17 18:48 | PN ---
Progress Note, Physician History of Present Illness: according to the staff patients dsg changed and the leg looks much better minimal drainage discussed with patients she agrees that leg looks much better - Current Medication List Current Medications: Active Medications Acetaminophen (Tylenol -) 650 mg PO Q4H PRN PRN Reason: FEVER Last Admin: 11/15/17 09:30 Dose: 650 mg Albuterol/Ipratropium (Duoneb -) 1 amp NEB RQID [facility] Last Admin: 11/17/17 16:48 Dose: 1 amp Atorvastatin Calcium (Lipitor -) 10 mg PO HS [facility] Last Admin: 11/16/17 21:10 Dose: 10 mg Dabigatran (Pradaxa -) 150 mg PO BID [facility] Last Admin: 11/17/17 09:30 Dose: 150 mg Ferrous Sulfate (Feosol -) 325 mg PO DAILY [facility] Last Admin: 11/17/17 09:25 Dose: 325 mg Furosemide (Lasix -) 80 mg PO DAILY [facility] Last Admin: 11/17/17 10:14 Dose: 80 mg Guaifenesin (Mucinex -) 600 mg PO BID [facility] Last Admin: 11/17/17 09:26 Dose: 600 mg Piperacillin Sod/Tazobactam Sod (Zosyn 3.375gm Ivpb (Pre-Docked)) 3.375 gm in 50 mls @ 100 mls/hr IVPB Q8H-IV NEIL PRN Reason: Protocol Last Admin: 11/17/17 17:55 Dose: 100 mls/hr Lactobacillus Acidophilus (Bacid -) 1 tab PO DAILY [facility] Last Admin: 11/17/17 09:26 Dose: 1 tab Levothyroxine Sodium (Synthroid -) 100 mcg PO AM [facility] Last Admin: 11/17/17 06:56 Dose: 100 mcg Metolazone (Zaroxolyn -) 5 mg PO DAILY@0930 [facility] Last Admin: 11/17/17 09:25 Dose: 5 mg Metoprolol Succinate (Toprol Xl -) 100 mg PO DAILY [facility] Last Admin: 11/17/17 09:26 Dose: 100 mg Nystatin (Mycostatin Ointment -) 1 applic TP BID [facility] Last Admin: 11/17/17 09:27 Dose: 1 applic Potassium Chloride (K-Dur -) 40 meq PO BID [facility] Last Admin: 11/17/17 09:26 Dose: 40 meq - Objective Vital Signs: Vital Signs Temperature 97.5 F L 11/17/17 14:00 Pulse Rate 64 11/17/17 14:00 Respiratory Rate 20 11/17/17 14:00 Blood Pressure 102/58 11/17/17 14:00 O2 Sat by Pulse Oximetry (%) 98 11/17/17 14:00 Constitutional: Yes: No Distress, Calm Cardiovascular: Yes: S1, S2 Respiratory: Yes: Regular, Poor Air Entry, Other (congestion) Gastrointestinal: Yes: Normal Bowel Sounds, Soft Musculoskeletal: Yes: Other Extremities: Yes: Erythema, Other Edema: RLE: 2+ Integumentary: Yes: Erythema Wound/Incision: Yes: Dressing Dry and Intact Neurological: Yes: Alert, Oriented Psychiatric: Yes: Alert, Oriented Labs: CBC, BMP 11/17/17 08:00 11/17/17 08:00 Assessment/Plan patient with severe cellulitis of the rt leg with weeping Problem List - Problems (1) Cellulitis Code(s): L03.90 - CELLULITIS, UNSPECIFIED Qualifiers: Site of cellulitis: extremity Site of cellulitis of extremity: lower extremity Laterality: right Qualified Code(s): L03.115 - Cellulitis of right lower limb (2) Atrial fibrillation Code(s): I48.91 - UNSPECIFIED ATRIAL FIBRILLATION (3) Benign prostate hyperplasia Code(s): N40.0 - BENIGN PROSTATIC HYPERPLASIA WITHOUT LOWER URINRY TRACT SYMP (4) Congestive heart failure (CHF) Code(s): I50.9 - HEART FAILURE, UNSPECIFIED (5) Hypothyroidism Code(s): E03.9 - HYPOTHYROIDISM, UNSPECIFIED leg starting to improve plan continue dewaynen will recheck wound tomorrow
[2017-11-17] MEDS: ATORVASTATIN CA 10 MG TABLET (FP) PO SCH (21:06)
[2017-11-17 21:36] LABS: ANION GAP 9 (8-16); BLOOD UREA NITROGEN 37 mg/dl (7-18); CALCIUM 8.5 mg/dl (8.4-10.2); CHLORIDE 90 mmol/L (98-107); CO2 34 mmol/L (22-28); CREATININE 1.4 mg/dl (0.6-1.3); GLUCOSE,RANDOM 134 mg/dl (74-106); POTASSIUM 3.4 mmol/L (3.5-5.1); SODIUM 133 mmol/L (136-145)
[2017-11-18] MEDS: PIPERACILLIN/TAZOB 3.375 GM 3.375 GM/50 ML BAG IVPB SCH ×3 (01:17→18:15)
[2017-11-18 07:55] LABS: BASO % 0.1 % (0-2.0); EOS % 2.7 % (0-4.5); HEMATOCRIT 29.5 % (35.4-49); HEMOGLOBIN 10.1 GM/dl (11.7-16.9); LYMPH % 10.7 % (8-40); MCH 32.5 pg (25.7-33.7); MCHC 34.2 g/dl (32.0-35.9); MEAN CELL VOLUME 95.1 fl (80-96); MEAN PLT VOLUME 7.2 fl (7.5-11.1); MONO % 4.4 % (3.8-10.2); NEUT % 82.1 % (42.8-82.8); PLATELET COUNT 286 K/MM3 (134-434); RDW 16.2 % (11.9-15.9); WHITE BLOOD COUNT 5.4 K/mm3 (4.0-10.8)
[2017-11-18] MEDS: ALBUTEROL SO4 2.5/IPRATROPIUM 0.5 INH SOL 3 ML VIAL.NEB. NEB SCH ×4 (08:00→21:44)
[2017-11-18 08:14] LABS: ANION GAP 12 (8-16); CALCIUM 8.5 mg/dl (8.4-10.2); CHLORIDE 92 mmol/L (98-107); CO2 30 mmol/L (22-28); GLUCOSE,RANDOM 94 mg/dl (74-106); SODIUM 134 mmol/L (136-145)
[2017-11-18 08:30] LABS: ALBUMIN 2.6 g/dl (3.5-5.0); ALK PHOS 130 U/L (32-92); BILIRUBIN,TOTAL 1.1 mg/dl (0.2-1.0); BLOOD UREA NITROGEN 35 mg/dl (7-18); CREATININE 1.4 mg/dl (0.6-1.3); PHOSPHOROUS 3.4 mg/dl (2.5-4.6); SGOT/AST 35 U/L (10-42); SGPT/ALT 23 U/L (10-40); TOT PROT 7.1 g/dl (6.4-8.3)
[2017-11-18] MEDS: METOLAZONE 5 MG TABLET PO SCH (08:30)
[2017-11-18 08:38] LABS: POTASSIUM 2.8 mmol/L (3.5-5.1)
[2017-11-18] MEDS: ACETAMINOPHEN 325 MG TABLET (FP) PO PRN (09:49)
[2017-11-18] MEDS: guaiFENesin 600 MG TABLET.ER (FP) PO SCH ×2 (09:49→21:42)
[2017-11-18] MEDS: FERROUS SO4 325 MG TABLET (FP) PO SCH (09:49)
[2017-11-18] MEDS: DABIGATRAN ETEXILATE MESYLATE 150 MG CAPSULE PO SCH ×2 (09:49→21:42)
[2017-11-18] MEDS: LACTOBACILLUS ACIDOPHILUS 1 EACH TAB (FP) PO SCH (09:49)
[2017-11-18] MEDS: POTASSIUM CHLORIDE TABS 20 MEQ TABLET.ER (FP) PO SCH ×2 (09:50→21:42)
[2017-11-18] MEDS: FUROSEMIDE 40 MG TABLET (FP) PO SCH (09:50)
[2017-11-18] MEDS: NYSTATIN 100000 UNIT/GM TOPICAL OINTMENT 15 GM TUBE TP SCH ×2 (09:51→22:30)
[2017-11-18] MEDS: KCL 10 MEQ IVPB 10 MEQ/100 ML INFUS.BAG IVPB SCH ×3 (10:00→12:15)
--- NOTE | 2017-11-18 10:18 | PN ---
Physical Exam: SUBJECTIVE: Patient seen and examined Pt reports RLE pain improved and able to ambulate with walker and assist, noted to be congested/moist cough, denies cp, sob or palpitations. OBJECTIVE: Vital Signs Period Temp Pulse Resp BP Sys/Servin Pulse Ox Last 24 Hr 97.5 F-98.1 F 63-81 19-20 98-103/47-58 94-98 GENERAL: The patient is awake, alert, and fully oriented, in no acute distress, OOB HEAD: Normal with no signs of trauma. EYES: PERRL, extraocular movements intact, sclera anicteric, conjunctiva clear. No ptosis. ENT: Ears normal, nares patent, oropharynx clear without exudates, moist mucous membranes. NECK: Trachea midline, full range of motion, supple. LUNGS: Breath sounds equal but diminished , no wheezes, no crackles, no accessory muscle use. HEART: irregular , systemics heart murmur ABDOMEN: Soft, non-tender,mildly distended, normoactive bowel sounds, no guarding, no rebound, no hepatosplenomegaly, no masses. EXTREMITIES: 2+ pulses, warm, well-perfused, Right LE 1-2+ edema, dsg intact,+ palpable pulse NEUROLOGICAL: Cranial nerves II through XII grossly intact. Normal speech, gait not observed. PSYCH: Normal mood, normal affect. SKIN: Warm, dry, normal turgor, no rashes or lesions noted Laboratory Results - last 24 hr 11/17/17 11/17/17 11/18/17 08:30 20:50 07:12 WBC 5.4 RBC 3.10 L Hgb 10.1 L Hct 29.5 L MCV 95.1 MCH 32.5 MCHC 34.2 RDW 16.2 H Plt Count 286 MPV 7.2 L Neutrophils % 82.1 Lymphocytes % 10.7 D Monocytes % 4.4 Eosinophils % 2.7 Basophils % 0.1 Sodium 133 L Potassium 3.4 L Chloride 90 L Carbon Dioxide 34 H Anion Gap 9 BUN 37 H Creatinine 1.4 H Creat Clearance w eGFR Random Glucose 134 H D Calcium 8.5 Phosphorus Magnesium 2.2 Total Bilirubin AST ALT Alkaline Phosphatase Total Protein Albumin 11/18/17 07:12 WBC RBC Hgb Hct MCV MCH MCHC RDW Plt Count MPV Neutrophils % Lymphocytes % Monocytes % Eosinophils % Basophils % Sodium 134 L Potassium 2.8 L* Chloride 92 L Carbon Dioxide 30 H Anion Gap 12 BUN 35 H Creatinine 1.4 H Creat Clearance w eGFR 48.05 Random Glucose 94 D Calcium 8.5 Phosphorus 3.4 Magnesium 2.0 Total Bilirubin 1.1 H D AST 35 D ALT 23 D Alkaline Phosphatase 130 H Total Protein 7.1 Albumin 2.6 L Active Medications Generic Name Dose Route Start Last Admin Trade Name Freq PRN Reason Stop Dose Admin Acetaminophen 650 mg 11/12/17 11:42 11/18/17 09:49 Tylenol - PO 650 mg Q4H PRN Administration FEVER Albuterol/Ipratropium 1 amp 11/14/17 12:15 11/17/17 19:30 Duoneb - NEB 1 amp RQID NEIL Administration Atorvastatin Calcium 10 mg 11/10/17 22:00 11/17/17 21:06 Lipitor - PO 10 mg HS NEIL Administration Dabigatran 150 mg 11/10/17 22:00 11/18/17 09:49 Pradaxa - PO 150 mg BID NEIL Administration Ferrous Sulfate 325 mg 11/11/17 10:00 11/18/17 09:49 Feosol - PO 325 mg DAILY NEIL Administration Furosemide 80 mg 11/17/17 10:00 11/18/17 09:50 Lasix - PO 80 mg DAILY NEIL Administration Guaifenesin 600 mg 11/16/17 13:15 11/18/17 09:49 Mucinex - PO 600 mg BID NEIL Administration Piperacillin Sod/Tazobactam Sod 3.375 gm in 50 mls @ 100 mls/hr 11/13/17 18: 00 11/18/17 09:51 Zosyn 3.375gm Ivpb (Pre-Docked) IVPB 100 mls/hr Q8H-IV NEIL Administration Protocol Potassium Chloride 10 meq in 100 mls @ 100 mls/hr 11/18/17 09:30 Potassium Chloride 10 Meq Premix Ivpb - IVPB 11/18/17 12:29 Q60M NEIL Lactobacillus Acidophilus 1 tab 11/13/17 10:00 11/18/17 09:49 Bacid - PO 1 tab DAILY NEIL Administration Levothyroxine Sodium 100 mcg 11/11/17 07:00 11/17/17 06:56 Synthroid - PO 100 mcg AM NEIL Administration Metolazone 5 mg 11/17/17 09:30 11/18/17 08:30 Zaroxolyn - PO 5 mg DAILY@0930 NEIL Administration Metoprolol Succinate 100 mg 11/11/17 10:00 11/18/17 09:50 Toprol Xl - PO 100 mg DAILY NEIL Administration Nystatin 1 applic 11/13/17 22:00 11/18/17 09:51 Mycostatin Ointment - TP 1 applic BID NEIL Administration Potassium Chloride 40 meq 11/13/17 11:30 11/18/17 09:50 K-Dur - PO 40 meq BID NEIL Administration IMAGING chest xray: Cardiomegaly and bilateral pleural effusion tib/fib xray: no acute pathology ultrasound of right lower ext: extensive fluid collection of the subcutaneous soft tissue Microbiology 11/10/17 14:27 Blood - Peripheral Venous Blood Culture - Final NO GROWTH AFTER 5 DAYS INCUBATION 11/10/17 14:00 Blood - Peripheral Venous Blood Culture - Final NO GROWTH AFTER 5 DAYS INCUBATION 11/10/17 14:15 Leg - Right Lower Gram Stain - Final 11/10/17 14:15 Leg - Right Lower Wound Culture - Final Serratia Marcescens Pseudomonas Aeruginosa Enterococcus Faecalis ASSESSMENT/PLAN: The patient is a 86 year old male pMHx significant for HTN, HLD, afib on Pradaxa, biventricular systolic heart failure, severe TR, CVA (2010), right pleural effusion, s/p thoracentesis (2014), and hypothyroidism admitted with polymicrobrial RLE cellulitis. *ID RLE cellulitis, polymicrobrial wound - s/p Vancomycin (2/ - 2/) -will continue Zosyn, polymicrobrial wound culture noted - emilie bandage, xeroform and Elevate leg - BC - neg - afebrile with no leukocytosis - ID following - continue Zosyn,total of 14 days- may need a PICC *Acute on chronic Biventricular systolic heart failure - decrease Lasix and metolazone low BP -BP stable now * Hx of pleural effusion - persistent moist cough - CxR today -encouraged to use Incentive spirometer - Neb tx - chest PT * Atrial Fibrillation, chronic - continue Pradaxa and Toprol xl 100mg daily - Recent cardiology evaluation with Dr. Knox this past Monday *Hypothyroid - Continue Synthroid * GILMER - Near baseline, stable, follow *Chronic anemia -Iron deficiency anemia - On ferrous sulfate - CBC stable *Hypokalemia-In context of diuretic use - K.- 2.8,potassium 10meq KCI x 3, -continue po potassium - Mg level 2 *Ppx - Pradaxa DISPO: Requires inpatient services. Visit type - Emergency Visit Emergency Visit: Yes ED Registration Date: 11/10/17 Care time: The patient presented to the Emergency Department on the above date and was hospitalized for further evaluation of their emergent condition. - New Patient This patient is new to me today: Yes Date on this admission: 11/18/17 - Critical Care Critical Care patient: No
--- NOTE | 2017-11-18 12:11 | PN ---
Progress Note, Physician History of Present Illness: dressing removed wound looks much better lower part of the leg still red swelling decreased a lot has congestive cough - Current Medication List Current Medications: Active Medications Acetaminophen (Tylenol -) 650 mg PO Q4H PRN PRN Reason: FEVER Last Admin: 11/18/17 09:49 Dose: 650 mg Albuterol/Ipratropium (Duoneb -) 1 amp NEB RQID [facility] Last Admin: 11/17/17 19:30 Dose: 1 amp Atorvastatin Calcium (Lipitor -) 10 mg PO HS [facility] Last Admin: 11/17/17 21:06 Dose: 10 mg Dabigatran (Pradaxa -) 150 mg PO BID [facility] Last Admin: 11/18/17 09:49 Dose: 150 mg Ferrous Sulfate (Feosol -) 325 mg PO DAILY [facility] Last Admin: 11/18/17 09:49 Dose: 325 mg Furosemide (Lasix -) 80 mg PO DAILY [facility] Last Admin: 11/18/17 09:50 Dose: 80 mg Guaifenesin (Mucinex -) 600 mg PO BID [facility] Last Admin: 11/18/17 09:49 Dose: 600 mg Piperacillin Sod/Tazobactam Sod (Zosyn 3.375gm Ivpb (Pre-Docked)) 3.375 gm in 50 mls @ 100 mls/hr IVPB Q8H-IV NEIL PRN Reason: Protocol Last Admin: 11/18/17 09:51 Dose: 100 mls/hr Potassium Chloride (Potassium Chloride 10 Meq Premix Ivpb -) 10 meq in 100 mls @ 100 mls/hr IVPB Q60M [facility] Stop: 11/18/17 12:29 Lactobacillus Acidophilus (Bacid -) 1 tab PO DAILY [facility] Last Admin: 11/18/17 09:49 Dose: 1 tab Levothyroxine Sodium (Synthroid -) 100 mcg PO AM [facility] Last Admin: 11/17/17 06:56 Dose: 100 mcg Metolazone (Zaroxolyn -) 5 mg PO DAILY@0930 [facility] Last Admin: 11/18/17 08:30 Dose: 5 mg Metoprolol Succinate (Toprol Xl -) 100 mg PO DAILY [facility] Last Admin: 11/18/17 09:50 Dose: 100 mg Nystatin (Mycostatin Ointment -) 1 applic TP BID [facility] Last Admin: 11/18/17 09:51 Dose: 1 applic Potassium Chloride (K-Dur -) 40 meq PO BID NEIL Last Admin: 11/18/17 09:50 Dose: 40 meq - Objective Vital Signs: Vital Signs Temperature 98.1 F 11/18/17 06:00 Pulse Rate 81 11/18/17 06:00 Respiratory Rate 20 11/18/17 06:00 Blood Pressure 103/47 11/18/17 06:00 O2 Sat by Pulse Oximetry (%) 95 11/18/17 06:00 Constitutional: Yes: Calm, Mild Distress Cardiovascular: Yes: S1, S2 Respiratory: Yes: Cough, Poor Air Entry, Other Gastrointestinal: Yes: Normal Bowel Sounds, Soft Musculoskeletal: Yes: WNL Extremities: Yes: Erythema (improving), Other Wound/Incision: Yes: Dressing Removed, Other (wound looks good) Neurological: Yes: Alert, Oriented Psychiatric: Yes: Alert, Oriented Labs: CBC, BMP 11/18/17 07:12 11/18/17 07:12 Assessment/Plan patient with severe cellulitis of the rt leg with weeping Problem List - Problems (1) Cellulitis Code(s): L03.90 - CELLULITIS, UNSPECIFIED Qualifiers: Site of cellulitis: extremity Site of cellulitis of extremity: lower extremity Laterality: right Qualified Code(s): L03.115 - Cellulitis of right lower limb (2) Atrial fibrillation Code(s): I48.91 - UNSPECIFIED ATRIAL FIBRILLATION (3) Benign prostate hyperplasia Code(s): N40.0 - BENIGN PROSTATIC HYPERPLASIA WITHOUT LOWER URINRY TRACT SYMP (4) Congestive heart failure (CHF) Code(s): I50.9 - HEART FAILURE, UNSPECIFIED (5) Hypothyroidism Code(s): E03.9 - HYPOTHYROIDISM, UNSPECIFIED leg starting to improve plan continue zosyn total of 14 days leg improving rest as per primary team
[2017-11-18] MEDS: ATORVASTATIN CA 10 MG TABLET (FP) PO SCH (21:42)
[2017-11-19] MEDS: PIPERACILLIN/TAZOB 3.375 GM 3.375 GM/50 ML BAG IVPB SCH ×3 (01:22→17:36)
[2017-11-19] MEDS: LEVOTHYROXINE NA 100 MCG TABLET (FP) PO SCH (06:43)
--- NOTE | 2017-11-19 08:23 | PN ---
Physical Exam: SUBJECTIVE: Patient seen and examined. States he feels well, denies any pain. Denies shortness of breath. Abdomen not bothering him, denies abdominal pain, denies nausea or vomiting. States had a BM yesterday, small, brown, not painful Ate breakfast (waffles) OBJECTIVE: abdominal xray for abdominal distention Vital Signs Period Temp Pulse Resp BP Sys/Servin Pulse Ox Last 24 Hr 97.7 F-98.1 F 79-87 18-20 93-103/51-59 95-98 GENERAL: The patient is awake, alert, and fully oriented, in no acute distress HEAD: Normal with no signs of trauma. EYES: PERRL, extraocular movements intact, sclera anicteric, conjunctiva clear. No ptosis. ENT: Ears normal, nares patent, oropharynx clear without exudates, moist mucous membranes. NECK: Trachea midline, full range of motion, supple. LUNGS: Breath sounds equal but diminished , upper lobes with mild wheezes, no crackles, no accessory muscle use. HEART: irregular , systemics heart murmur ABDOMEN: Soft, non-tender, distended, + bowel sounds, no guarding, no rebound, no hepatosplenomegaly, no masses - will xray EXTREMITIES: Right LE 2 + edema, dsg intact,+cellulitis NEUROLOGICAL: Normal speech, gait not observed. PSYCH: Normal mood, normal affect. SKIN: Warm, dry, normal turgor, no rashes or lesions noted Laboratory Results - last 24 hr 11/18/17 11/18/17 07:12 20:15 Sodium 134 L Potassium 2.8 L* 3.1 L Chloride 92 L Carbon Dioxide 30 H Anion Gap 12 BUN 35 H Creatinine 1.4 H Creat Clearance w eGFR 48.05 Random Glucose 94 D Calcium 8.5 Phosphorus 3.4 Magnesium 2.0 Total Bilirubin 1.1 H D AST 35 D ALT 23 D Alkaline Phosphatase 130 H Total Protein 7.1 Albumin 2.6 L Active Medications Generic Name Dose Route Start Last Admin Trade Name Freq PRN Reason Stop Dose Admin Acetaminophen 650 mg 11/12/17 11:42 11/18/17 09:49 Tylenol - PO 650 mg Q4H PRN Administration FEVER Albuterol/Ipratropium 1 amp 11/14/17 12:15 11/18/17 21:44 Duoneb - NEB 1 amp RQID NEIL Administration Atorvastatin Calcium 10 mg 11/10/17 22:00 11/18/17 21:42 Lipitor - PO 10 mg HS NEIL Administration Dabigatran 150 mg 11/10/17 22:00 11/18/17 21:42 Pradaxa - PO 150 mg BID NEIL Administration Ferrous Sulfate 325 mg 11/11/17 10:00 11/18/17 09:49 Feosol - PO 325 mg DAILY NEIL Administration Furosemide 80 mg 11/17/17 10:00 11/18/17 09:50 Lasix - PO 80 mg DAILY NEIL Administration Guaifenesin 600 mg 11/16/17 13:15 11/18/17 21:42 Mucinex - PO 600 mg BID NEIL Administration Piperacillin Sod/Tazobactam Sod 3.375 gm in 50 mls @ 100 mls/hr 11/13/17 18: 00 11/19/17 01:22 Zosyn 3.375gm Ivpb (Pre-Docked) IVPB 100 mls/hr Q8H-IV NEIL Administration Protocol Lactobacillus Acidophilus 1 tab 11/13/17 10:00 11/18/17 09:49 Bacid - PO 1 tab DAILY NEIL Administration Levothyroxine Sodium 100 mcg 11/11/17 07:00 11/19/17 06:43 Synthroid - PO 100 mcg AM NEIL Administration Metolazone 5 mg 11/17/17 09:30 11/18/17 08:30 Zaroxolyn - PO 5 mg DAILY@0930 NEIL Administration Metoprolol Succinate 100 mg 11/11/17 10:00 11/18/17 09:50 Toprol Xl - PO 100 mg DAILY NEIL Administration Nystatin 1 applic 11/13/17 22:00 11/18/17 22:30 Mycostatin Ointment - TP 1 applic BID NEIL Administration Potassium Chloride 40 meq 11/13/17 11:30 11/18/17 21:42 K-Dur - PO 40 meq BID NEIL Administration ASSESSMENT/PLAN: Patient is an 86 year old male with a significant past medical history of hypertension, hld, atrial fibrillation (on Pradaxa), biventricular systolic heart failure, severe TR, CVA (2010), right pleural effusion, s/p thoracentesis (2014), and hypothyroidism admitted with RLE cellulitis. Imaging: Abdominal xray 11/19/2017: large heart, right base changes, constipation, distended bowel left upper quadrant. bilateral hip replacements. ID: RLE cellulitis with a polymicrobrial wound Recently treated with Vancomycin, now on Zosyn Dressing c/d/i, denies pain No fevers, vitals stable Blood cultures negative ID following, notes reviewed Patient may need a total of 14 days of Zosyn PICC line prior to d/c likely Cardiology: Acute on chronic Biventricular systolic heart failure On Lasix, monitor BP Atrial Fibrillation, chronic On Pradaxa and Toprol 100mg daily Pulmonary: Persistent moist cough Albuterol QID, added saline mists Incentive spirometer OOB to chair with meals Aspiration precautions Hypothyroid On Synthroid Renal: GILMER, resolved Monitor with daily labs Electrolyte imbalance: Hypokalemia K. 2.7, 3 K riders, has supplemental K Repeat cmp after runs GI: Constipation as seen on abdominal xray Dulcolax, Colace TID F.E.N. Fluids: PO Electrolytes: hypoK, repleted, monitor cmp Nutrition: low sodium diet Prophy: DVT: on pradaxa GI: bacid Disposition: full code Visit type - Emergency Visit Emergency Visit: Yes ED Registration Date: 11/10/17 Care time: The patient presented to the Emergency Department on the above date and was hospitalized for further evaluation of their emergent condition. - New Patient This patient is new to me today: Yes Date on this admission: 11/19/17 - Critical Care Critical Care patient: No - Discharge Referral Referred to [facility] Med [facility] No
[2017-11-19] MEDS ORDERED: SODIUM CHLORIDE FOR INHALATION 3 ML VIAL.NEB IH PRN (08:36)
[2017-11-19 08:49] LABS: BASO % 0.4 % (0-2.0); EOS % 2.2 % (0-4.5); HEMATOCRIT 28.8 % (35.4-49); HEMOGLOBIN 9.6 GM/dl (11.7-16.9); LYMPH % 12.7 % (8-40); MCH 31.7 pg (25.7-33.7); MCHC 33.5 g/dl (32.0-35.9); MEAN CELL VOLUME 94.9 fl (80-96); MEAN PLT VOLUME 7.2 fl (7.5-11.1); MONO % 4.5 % (3.8-10.2); NEUT % 80.2 % (42.8-82.8); PLATELET COUNT 282 K/MM3 (134-434); RBC 3.04 M/mm3 (4.00-5.60); RDW 16.4 % (11.9-15.9); WHITE BLOOD COUNT 5.6 K/mm3 (4.0-10.8)
[2017-11-19 08:51] LABS: ANION GAP 9 (8-16); BLOOD UREA NITROGEN 37 mg/dl (7-18); CALCIUM 8.3 mg/dl (8.4-10.2); CHLORIDE 93 mmol/L (98-107); CO2 34 mmol/L (22-28); CREATININE 1.3 mg/dl (0.6-1.3); GLUCOSE,RANDOM 91 mg/dl (74-106); SODIUM 136 mmol/L (136-145)
[2017-11-19] MEDS: ALBUTEROL SO4 2.5/IPRATROPIUM 0.5 INH SOL 3 ML VIAL.NEB. NEB SCH ×4 (09:00→21:02)
[2017-11-19 09:31] LABS: POTASSIUM 2.7 mmol/L (3.5-5.1)
[2017-11-19] MEDS: METOLAZONE 5 MG TABLET PO SCH (09:44)
[2017-11-19] MEDS: KCL 10 MEQ IVPB 10 MEQ/100 ML INFUS.BAG IVPB SCH ×3 (10:21→13:59)
[2017-11-19] MEDS: LACTOBACILLUS ACIDOPHILUS 1 EACH TAB (FP) PO SCH (10:40)
[2017-11-19] MEDS: FERROUS SO4 325 MG TABLET (FP) PO SCH (10:40)
[2017-11-19] MEDS: FUROSEMIDE 40 MG TABLET (FP) PO SCH (10:40)
[2017-11-19] MEDS: DABIGATRAN ETEXILATE MESYLATE 150 MG CAPSULE PO SCH ×2 (10:41→21:03)
[2017-11-19] MEDS: guaiFENesin 600 MG TABLET.ER (FP) PO SCH ×2 (10:42→21:03)
[2017-11-19] MEDS: NYSTATIN 100000 UNIT/GM TOPICAL OINTMENT 15 GM TUBE TP SCH ×2 (10:43→21:04)
--- NOTE | 2017-11-19 12:45 | PN ---
Progress Note, Physician History of Present Illness: leg continues to improve abd distension patient had bm going to have an xray of abd - Current Medication List Current Medications: Active Medications Acetaminophen (Tylenol -) 650 mg PO Q4H PRN PRN Reason: FEVER Last Admin: 11/18/17 09:49 Dose: 650 mg Albuterol/Ipratropium (Duoneb -) 1 amp NEB RQID [facility] Last Admin: 11/19/17 11:59 Dose: 1 amp Atorvastatin Calcium (Lipitor -) 10 mg PO HS [facility] Last Admin: 11/18/17 21:42 Dose: 10 mg Dabigatran (Pradaxa -) 150 mg PO BID [facility] Last Admin: 11/19/17 10:41 Dose: 150 mg Ferrous Sulfate (Feosol -) 325 mg PO DAILY [facility] Last Admin: 11/19/17 10:40 Dose: 325 mg Furosemide (Lasix -) 80 mg PO DAILY [facility] Last Admin: 11/19/17 10:40 Dose: 80 mg Guaifenesin (Mucinex -) 600 mg PO BID [facility] Last Admin: 11/19/17 10:42 Dose: 600 mg Piperacillin Sod/Tazobactam Sod (Zosyn 3.375gm Ivpb (Pre-Docked)) 3.375 gm in 50 mls @ 100 mls/hr IVPB Q8H-IV [facility] PRN Reason: Protocol Last Admin: 11/19/17 10:41 Dose: 100 mls/hr Lactobacillus Acidophilus (Bacid -) 1 tab PO DAILY [facility] Last Admin: 11/19/17 10:40 Dose: 1 tab Levothyroxine Sodium (Synthroid -) 100 mcg PO AM [facility] Last Admin: 11/19/17 06:43 Dose: 100 mcg Metolazone (Zaroxolyn -) 5 mg PO DAILY@0930 [facility] Last Admin: 11/19/17 09:44 Dose: 5 mg Metoprolol Succinate (Toprol Xl -) 100 mg PO DAILY [facility] Last Admin: 11/19/17 10:41 Dose: 100 mg Nystatin (Mycostatin Ointment -) 1 applic TP BID [facility] Last Admin: 11/19/17 10:43 Dose: 1 applic Potassium Chloride (K-Dur -) 40 meq PO BID [facility] Sodium Chloride (Normal Saline For Inhalation -) 3 ml IH Q6H PRN PRN Reason: dry cough - Objective Vital Signs: Vital Signs Temperature 97.7 F 11/19/17 08:08 Pulse Rate 79 11/19/17 08:08 Respiratory Rate 20 11/19/17 08:08 Blood Pressure 103/59 11/19/17 08:08 O2 Sat by Pulse Oximetry (%) 96 11/19/17 08:08 Constitutional: Yes: No Distress, Calm Cardiovascular: Yes: Regular Rate and Rhythm Respiratory: Yes: Regular, CTA Bilaterally Gastrointestinal: Yes: Normal Bowel Sounds, Soft, Other (distension) Musculoskeletal: Yes: Other Extremities: Yes: Other (rt leg edema and cellulitits) Wound/Incision: Yes: Other (healing well) Neurological: Yes: Alert, Oriented Psychiatric: Yes: Alert Labs: CBC, BMP 11/19/17 06:50 11/19/17 06:50 Assessment/Plan patient with severe cellulitis of the rt leg with weeping Problem List - Problems (1) Cellulitis Code(s): L03.90 - CELLULITIS, UNSPECIFIED Qualifiers: Site of cellulitis: extremity Site of cellulitis of extremity: lower extremity Laterality: right Qualified Code(s): L03.115 - Cellulitis of right lower limb (2) Atrial fibrillation Code(s): I48.91 - UNSPECIFIED ATRIAL FIBRILLATION (3) Benign prostate hyperplasia Code(s): N40.0 - BENIGN PROSTATIC HYPERPLASIA WITHOUT LOWER URINRY TRACT SYMP (4) Congestive heart failure (CHF) Code(s): I50.9 - HEART FAILURE, UNSPECIFIED (5) Hypothyroidism Code(s): E03.9 - HYPOTHYROIDISM, UNSPECIFIED leg starting to improve plan continue zosyn total of 14 days leg improving rest as per primary team elevation of the leg
[2017-11-19] MEDS ORDERED: BISACODYL 5 MG TABLET.DR (FP) PO ONE (14:45)
[2017-11-19] MEDS ORDERED: POTASSIUM CHLORIDE ORAL LIQUID 20 MEQ/15 ML PO ONE (17:45)
[2017-11-19] MEDS: POTASSIUM CHLORIDE TABS 20 MEQ TABLET.ER (FP) PO SCH (21:03)
[2017-11-19] MEDS: ATORVASTATIN CA 10 MG TABLET (FP) PO SCH (21:03)
[2017-11-19] MEDS: DOCUSATE SODIUM 100 MG CAPSULE (FP) PO SCH (21:03)
[2017-11-20] MEDS: PIPERACILLIN/TAZOB 3.375 GM 3.375 GM/50 ML BAG IVPB SCH ×3 (01:18→17:57)
[2017-11-20] MEDS: DOCUSATE SODIUM 100 MG CAPSULE (FP) PO SCH ×3 (06:06→21:23)
[2017-11-20] MEDS: LEVOTHYROXINE NA 100 MCG TABLET (FP) PO SCH (06:06)
[2017-11-20 08:37] LABS: BASO % 0.4 % (0-2.0); EOS % 2.1 % (0-4.5); HEMATOCRIT 30.7 % (35.4-49); HEMOGLOBIN 10.3 GM/dl (11.7-16.9); LYMPH % 11.9 % (8-40); MCH 32.1 pg (25.7-33.7); MCHC 33.4 g/dl (32.0-35.9); MEAN CELL VOLUME 96.1 fl (80-96); MONO % 4.2 % (3.8-10.2); NEUT % 81.4 % (42.8-82.8); PLATELET COUNT 309 K/MM3 (134-434); RBC 3.19 M/mm3 (4.00-5.60); RDW 16.4 % (11.9-15.9); WHITE BLOOD COUNT 5.3 K/mm3 (4.0-10.8)
[2017-11-20] MEDS: ALBUTEROL SO4 2.5/IPRATROPIUM 0.5 INH SOL 3 ML VIAL.NEB. NEB SCH ×4 (08:50→21:21)
[2017-11-20] MEDS: FUROSEMIDE 40 MG TABLET (FP) PO SCH (10:00)
[2017-11-20] MEDS: METOLAZONE 5 MG TABLET PO SCH (10:00)
[2017-11-20 10:06] LABS: ALBUMIN 2.6 g/dl (3.5-5.0); ALK PHOS 120 U/L (32-92); ANION GAP 13 (8-16); BILIRUBIN,TOTAL 1.1 mg/dl (0.2-1.0); BLOOD UREA NITROGEN 35 mg/dl (7-18); CALCIUM 8.7 mg/dl (8.4-10.2); CHLORIDE 94 mmol/L (98-107); CO2 33 mmol/L (22-28); CREATININE 1.4 mg/dl (0.6-1.3); GLUCOSE,RANDOM 95 mg/dl (74-106); POTASSIUM 3.3 mmol/L (3.5-5.1); SGOT/AST 39 U/L (10-42); SGPT/ALT 21 U/L (10-40); SODIUM 140 mmol/L (136-145); TOT PROT 7.1 g/dl (6.4-8.3)
[2017-11-20] MEDS: LACTOBACILLUS ACIDOPHILUS 1 EACH TAB (FP) PO SCH (10:41)
[2017-11-20] MEDS: FERROUS SO4 325 MG TABLET (FP) PO SCH (10:42)
[2017-11-20] MEDS: POTASSIUM CHLORIDE TABS 20 MEQ TABLET.ER (FP) PO SCH ×2 (10:43→21:23)
[2017-11-20] MEDS: guaiFENesin 600 MG TABLET.ER (FP) PO SCH ×2 (10:43→21:22)
[2017-11-20] MEDS: DABIGATRAN ETEXILATE MESYLATE 150 MG CAPSULE PO SCH ×2 (10:43→21:22)
[2017-11-20] MEDS: NYSTATIN 100000 UNIT/GM TOPICAL OINTMENT 15 GM TUBE TP SCH ×2 (10:44→21:35)
[2017-11-20 11:04] LABS: MAGNESIUM 2.2 mg/dL (1.8-2.4)
--- NOTE | 2017-11-20 11:34 | PN ---
Physical Exam: SUBJECTIVE: Patient seen and examined, standing at bedside with walker, denies any chest pain or shortness of breath, reports improvement to right lower extremity redness, patient denies any tactile fever. OBJECTIVE: Patient is an 86 year old male with a significant past medical history of hypertension, hld, atrial fibrillation (on Pradaxa), biventricular systolic heart failure, severe TR, CVA (2010), right pleural effusion, s/p thoracentesis (2014), and hypothyroidism admitted with RLE cellulitis. Vital Signs Period Temp Pulse Resp BP Sys/Servin Pulse Ox Last 24 Hr 97.8 F-98.3 F 86-101 18-19 96-108/61-69 95-100 GENERAL: The patient is awake, alert, and fully oriented, in no acute distress. HEAD: Normal with no signs of trauma. EYES: PERRL, extraocular movements intact, sclera anicteric, conjunctiva clear. No ptosis. ENT: Ears normal, nares patent, oropharynx clear without exudates, moist mucous membranes. NECK: Trachea midline, full range of motion, supple. LUNGS: Breath sounds equal, clear to auscultation bilaterally, no wheezes, no crackles, no accessory muscle use. HEART: irregular rate and rhythm, S1, S2 without murmur, rub or gallop. ABDOMEN: Soft, nontender, nondistended, normoactive bowel sounds, no guarding, no rebound, no hepatosplenomegaly, no masses. EXTREMITIES: 2+ pulses, warm, right distal lower extremity--> erythema much improved, no drainage, dressing removed, +1 edema. NEUROLOGICAL: Cranial nerves II through XII grossly intact. Normal speech, gait not observed. PSYCH: Normal mood, normal affect. SKIN: Warm, dry, normal turgor, no rashes or lesions noted Laboratory Results - last 24 hr 11/19/17 11/19/17 11/20/17 06:35 17:00 07:30 WBC 5.3 RBC 3.19 L Hgb 10.3 L Hct 30.7 L MCV 96.1 H MCH 32.1 MCHC 33.4 RDW 16.4 H Plt Count 309 MPV 7.0 L Neutrophils % 81.4 Lymphocytes % 11.9 Monocytes % 4.2 Eosinophils % 2.1 Basophils % 0.4 Sodium Potassium 3.0 L Chloride Carbon Dioxide Anion Gap BUN Creatinine Creat Clearance w eGFR Random Glucose Calcium Magnesium 2.1 Total Bilirubin AST ALT Alkaline Phosphatase Total Protein Albumin 11/20/17 07:30 WBC RBC Hgb Hct MCV MCH MCHC RDW Plt Count MPV Neutrophils % Lymphocytes % Monocytes % Eosinophils % Basophils % Sodium 140 Potassium 3.3 L Chloride 94 L Carbon Dioxide 33 H Anion Gap 13 BUN 35 H Creatinine 1.4 H Creat Clearance w eGFR 48.05 Random Glucose 95 Calcium 8.7 Magnesium 2.2 Total Bilirubin 1.1 H AST 39 ALT 21 Alkaline Phosphatase 120 H Total Protein 7.1 Albumin 2.6 L Active Medications Generic Name Dose Route Start Last Admin Trade Name Freq PRN Reason Stop Dose Admin Acetaminophen 650 mg 11/12/17 11:42 11/18/17 09:49 Tylenol - PO 650 mg Q4H PRN Administration FEVER Albuterol/Ipratropium 1 amp 11/14/17 12:15 11/20/17 08:50 Duoneb - NEB 1 amp RQID NEIL Administration Atorvastatin Calcium 10 mg 11/10/17 22:00 11/19/17 21:03 Lipitor - PO 10 mg HS NEIL Administration Dabigatran 150 mg 11/10/17 22:00 11/20/17 10:43 Pradaxa - PO 150 mg BID NEIL Administration Docusate Sodium 100 mg 11/19/17 22:00 11/20/17 06:06 Colace - PO 100 mg TID NEIL Administration Ferrous Sulfate 325 mg 11/11/17 10:00 11/20/17 10:42 Feosol - PO 325 mg DAILY NEIL Administration Furosemide 80 mg 11/17/17 10:00 11/19/17 10:40 Lasix - PO 80 mg DAILY NEIL Administration Guaifenesin 600 mg 11/16/17 13:15 11/20/17 10:43 Mucinex - PO 600 mg BID NEIL Administration Piperacillin Sod/Tazobactam Sod 3.375 gm in 50 mls @ 100 mls/hr 11/13/17 18: 00 11/20/17 10:44 Zosyn 3.375gm Ivpb (Pre-Docked) IVPB 100 mls/hr Q8H-IV NEIL Administration Protocol Lactobacillus Acidophilus 1 tab 11/13/17 10:00 11/20/17 10:41 Bacid - PO 1 tab DAILY NEIL Administration Levothyroxine Sodium 100 mcg 11/11/17 07:00 11/20/17 06:06 Synthroid - PO 100 mcg AM NEIL Administration Metolazone 5 mg 11/17/17 09:30 11/20/17 10:00 Zaroxolyn - PO 5 mg DAILY@0930 NEIL Administration Metoprolol Succinate 100 mg 11/11/17 10:00 11/20/17 10:43 Toprol Xl - PO 100 mg DAILY NEIL Administration Nystatin 1 applic 11/13/17 22:00 11/20/17 10:44 Mycostatin Ointment - TP 1 applic BID NEIL Administration Potassium Chloride 40 meq 11/19/17 22:00 11/20/17 10:43 K-Dur - PO 40 meq BID NEIL Administration Potassium Chloride 20 meq 11/20/17 12:00 K-Dur - PO 11/20/17 12:01 ONCE ONE Sodium Chloride 3 ml 11/19/17 08:36 Normal Saline For Inhalation - IH Q6H PRN dry cough Microbiology 11/10/17 14:27 Blood - Peripheral Venous Blood Culture - Final NO GROWTH AFTER 5 DAYS INCUBATION 11/10/17 14:00 Blood - Peripheral Venous Blood Culture - Final NO GROWTH AFTER 5 DAYS INCUBATION 11/10/17 14:15 Leg - Right Lower Gram Stain - Final 11/10/17 14:15 Leg - Right Lower Wound Culture - Final Serratia Marcescens Pseudomonas Aeruginosa Enterococcus Faecalis IMAGING chest xray: mild pulmonary vascular congestion tib/fib xray: no acute pathology ultrasound of right lower ext: extensive fluid collection of the subcutaneous soft tissue chest xray from 11/16/17, mild bilateral pleural effusions right greater than left , unchanged from prior ASSESSMENT/PLAN: 1.ID RLE cellulitis, polymicrobrial wound - Vancomycin (11/11 - 11/14), continue Zosyn (11/13-), erythema is nearly resolved, zosyn for a total of 14 days as per ID - emilie bandage, xeroform and Elevate leg 2. Acute on chronic Biventricular systolic heart failure continue Lasix and metolazone - strict I/O and daily weights 3. Atrial Fibrillation, chronic - rate controlled, continue Pradaxa and Toprol xl 100mg daily - Recent cardiology evaluation with Dr. Knox 4. Hypothyroid - Continue Synthroid 5. GILMER - Near baseline, stable, follow 6. Iron deficiency anemia - On ferrous sulfate 7. Ppx - Pradaxa 8. Hypokalemia - In context of diuretic use - potassium 40mdq BID and 20meq x 1, repeat bmp in am DISPO: Requires inpatient services. Visit type - Emergency Visit Emergency Visit: Yes ED Registration Date: 11/10/17 Care time: The patient presented to the Emergency Department on the above date and was hospitalized for further evaluation of their emergent condition. - New Patient This patient is new to me today: No - Critical Care Critical Care patient: No - Discharge Referral Referred to [facility] No
[2017-11-20] MEDS ORDERED: POTASSIUM CHLORIDE TABS 20 MEQ TABLET.ER (FP) PO ONE (12:00)
[2017-11-20] MEDS ORDERED: PT OWN MED DRAWER 7, Y5N ONE (21:14)
[2017-11-20] MEDS: ATORVASTATIN CA 10 MG TABLET (FP) PO SCH (21:22)
--- NOTE | 2017-11-20 21:28 | PN ---
Progress Note, Physician History of Present Illness: leg continues to improve much better than sat minimal erythema and swelling breathing much better dressing removed wounds looked at - Current Medication List Current Medications: Active Medications Acetaminophen (Tylenol -) 650 mg PO Q4H PRN PRN Reason: FEVER Last Admin: 11/18/17 09:49 Dose: 650 mg Albuterol/Ipratropium (Duoneb -) 1 amp NEB RQID [facility] Last Admin: 11/20/17 16:20 Dose: 1 amp Atorvastatin Calcium (Lipitor -) 10 mg PO HS [facility] Last Admin: 11/19/17 21:03 Dose: 10 mg Dabigatran (Pradaxa -) 150 mg PO BID [facility] Last Admin: 11/20/17 10:43 Dose: 150 mg Docusate Sodium (Colace -) 100 mg PO TID [facility] Last Admin: 11/20/17 14:25 Dose: 100 mg Ferrous Sulfate (Feosol -) 325 mg PO DAILY [facility] Last Admin: 11/20/17 10:42 Dose: 325 mg Furosemide (Lasix -) 80 mg PO DAILY [facility] Last Admin: 11/20/17 10:00 Dose: 80 mg Guaifenesin (Mucinex -) 600 mg PO BID [facility] Last Admin: 11/20/17 10:43 Dose: 600 mg Piperacillin Sod/Tazobactam Sod (Zosyn 3.375gm Ivpb (Pre-Docked)) 3.375 gm in 50 mls @ 100 mls/hr IVPB Q8H-IV NEIL PRN Reason: Protocol Last Admin: 11/20/17 17:57 Dose: 100 mls/hr Lactobacillus Acidophilus (Bacid -) 1 tab PO DAILY [facility] Last Admin: 11/20/17 10:41 Dose: 1 tab Levothyroxine Sodium (Synthroid -) 100 mcg PO AM [facility] Last Admin: 11/20/17 06:06 Dose: 100 mcg Metolazone (Zaroxolyn -) 5 mg PO DAILY@0930 [facility] Last Admin: 11/20/17 10:00 Dose: 5 mg Metoprolol Succinate (Toprol Xl -) 100 mg PO DAILY [facility] Last Admin: 11/20/17 10:43 Dose: 100 mg Nystatin (Mycostatin Ointment -) 1 applic TP BID [facility] Last Admin: 11/20/17 10:44 Dose: 1 applic Potassium Chloride (K-Dur -) 40 meq PO BID NEIL Last Admin: 11/20/17 10:43 Dose: 40 meq Sodium Chloride (Normal Saline For Inhalation -) 3 ml IH Q6H PRN PRN Reason: dry cough - Objective Vital Signs: Vital Signs Temperature 98.0 F 11/20/17 06:00 Pulse Rate 89 11/20/17 06:00 Respiratory Rate 18 11/20/17 19:47 Blood Pressure 96/61 11/20/17 06:00 O2 Sat by Pulse Oximetry (%) 97 11/20/17 19:47 Constitutional: Yes: No Distress, Calm Cardiovascular: Yes: Regular Rate and Rhythm Respiratory: Yes: Regular, Rhonchi, Other Gastrointestinal: Yes: Normal Bowel Sounds, Soft Musculoskeletal: Yes: WNL Extremities: Yes: Other (rt leg with edema cellulitits which is improving) Edema: RLE: 2+ Integumentary: Yes: Erythema (resolving) Neurological: Yes: Alert, Oriented Psychiatric: Yes: Alert Labs: CBC, BMP 11/20/17 07:30 11/20/17 07:30 Assessment/Plan patient with severe cellulitis of the rt leg with weeping Problem List - Problems (1) Cellulitis Code(s): L03.90 - CELLULITIS, UNSPECIFIED Qualifiers: Site of cellulitis: extremity Site of cellulitis of extremity: lower extremity Laterality: right Qualified Code(s): L03.115 - Cellulitis of right lower limb (2) Atrial fibrillation Code(s): I48.91 - UNSPECIFIED ATRIAL FIBRILLATION (3) Benign prostate hyperplasia Code(s): N40.0 - BENIGN PROSTATIC HYPERPLASIA WITHOUT LOWER URINRY TRACT SYMP (4) Congestive heart failure (CHF) Code(s): I50.9 - HEART FAILURE, UNSPECIFIED (5) Hypothyroidism Code(s): E03.9 - HYPOTHYROIDISM, UNSPECIFIED leg starting to improve plan continue zosyn total of 14 days leg improving rest as per primary team elevation of the leg
[2017-11-21] MEDS: PIPERACILLIN/TAZOB 3.375 GM 3.375 GM/50 ML BAG IVPB SCH ×3 (01:51→17:42)
[2017-11-21] MEDS: DOCUSATE SODIUM 100 MG CAPSULE (FP) PO SCH ×4 (06:20→21:39)
[2017-11-21] MEDS: LEVOTHYROXINE NA 100 MCG TABLET (FP) PO SCH (06:21)
[2017-11-21] MEDS: ALBUTEROL SO4 2.5/IPRATROPIUM 0.5 INH SOL 3 ML VIAL.NEB. NEB SCH ×4 (08:40→21:39)
[2017-11-21] MEDS: METOLAZONE 5 MG TABLET PO SCH (08:53)
[2017-11-21] MEDS: DABIGATRAN ETEXILATE MESYLATE 150 MG CAPSULE PO SCH ×2 (09:33→21:39)
[2017-11-21] MEDS: FUROSEMIDE 40 MG TABLET (FP) PO SCH (09:33)
[2017-11-21] MEDS: FERROUS SO4 325 MG TABLET (FP) PO SCH (09:34)
[2017-11-21] MEDS: POTASSIUM CHLORIDE TABS 20 MEQ TABLET.ER (FP) PO SCH ×2 (09:34→21:39)
[2017-11-21] MEDS: guaiFENesin 600 MG TABLET.ER (FP) PO SCH ×2 (09:34→21:38)
[2017-11-21] MEDS: LACTOBACILLUS ACIDOPHILUS 1 EACH TAB (FP) PO SCH (09:35)
[2017-11-21] MEDS: NYSTATIN 100000 UNIT/GM TOPICAL OINTMENT 15 GM TUBE TP SCH ×2 (09:35→21:46)
--- NOTE | 2017-11-21 11:00 | PN ---
Physical Exam: SUBJECTIVE: Patient seen and examined, sitting in bedside chair reports feeling well, denies any tactile fevers OBJECTIVE:Patient is an 86 year old male with a significant past medical history of hypertension, hld, atrial fibrillation (on Pradaxa), biventricular systolic heart failure, severe TR, CVA (2010), right pleural effusion, s/p thoracentesis (2014), and hypothyroidism admitted with RLE cellulitis. Vital Signs Period Temp Pulse Resp BP Sys/Servin Pulse Ox Last 24 Hr 97.8 F-97.8 F 71-92 18-20 103-123/59-67 94-97 GENERAL: The patient is awake, alert, and fully oriented, in no acute distress. HEAD: Normal with no signs of trauma. EYES: PERRL, extraocular movements intact, sclera anicteric, conjunctiva clear. No ptosis. ENT: Ears normal, nares patent, oropharynx clear without exudates, moist mucous membranes. NECK: Trachea midline, full range of motion, supple. LUNGS: Breath sounds equal, clear to auscultation bilaterally, no wheezes, no crackles, no accessory muscle use. HEART: irregular rate and rhythm, S1, S2 without murmur, rub or gallop. ABDOMEN: Soft, nontender, nondistended, normoactive bowel sounds, no guarding, no rebound, no hepatosplenomegaly, no masses. EXTREMITIES: 2+ pulses, warm, right distal lower extremity--> erythema much improved, no drainage, dressing removed, +1 edema. NEUROLOGICAL: Cranial nerves II through XII grossly intact. Normal speech, gait not observed. PSYCH: Normal mood, normal affect. SKIN: Warm, dry, normal turgor, no rashes or lesions noted Laboratory Results - last 24 hr 11/20/17 07:30 Magnesium 2.2 CBC WBC 5.3 K/mm3 (4.0-10.8) 11/20/17 07:30 RBC 3.19 M/mm3 (4.00-5.60) L 11/20/17 07:30 Hgb 10.3 GM/dl (11.7-16.9) L 11/20/17 07:30 Hct 30.7 % (35.4-49) L 11/20/17 07:30 MCV 96.1 fl (80-96) H 11/20/17 07:30 MCH 32.1 pg (25.7-33.7) 11/20/17 07:30 MCHC 33.4 g/dl (32.0-35.9) 11/20/17 07:30 RDW 16.4 % (11.9-15.9) H 11/20/17 07:30 Plt Count 309 K/MM3 (134-434) 11/20/17 07:30 MPV 7.0 fl (7.5-11.1) L 11/20/17 07:30 Neutrophils % 81.4 % (42.8-82.8) 11/20/17 07:30 Neutrophils % (Manual) 82.0 % (42.8-82.8) 11/11/17 07:25 Band Neutrophils % 3.0 % (0-10) 11/11/17 07:25 Lymphocytes % 11.9 % (8-40) 11/20/17 07:30 Lymphocytes % (Manual) 11.0 % (8-40) 11/11/17 07:25 Monocytes % 4.2 % (3.8-10.2) 11/20/17 07:30 Monocytes % (Manual) 3 % (3.8-10.2) L 11/11/17 07:25 Eosinophils % 2.1 % (0-4.5) 11/20/17 07:30 Eosinophils % (Manual) 1.0 % (0-4.5) 11/11/17 07:25 Basophils % 0.4 % (0-2.0) 11/20/17 07:30 Platelet Estimate Adequate 11/11/17 07:25 CMP Sodium 140 mmol/L (136-145) 11/20/17 07:30 Potassium 3.3 mmol/L (3.5-5.1) L 11/20/17 07:30 Chloride 94 mmol/L (98-107) L 11/20/17 07:30 Carbon Dioxide 33 mmol/L (22-28) H 11/20/17 07:30 Anion Gap 13 (8-16) 11/20/17 07:30 BUN 35 mg/dl (7-18) H 11/20/17 07:30 Creatinine 1.4 mg/dl (0.6-1.3) H 11/20/17 07:30 Creat Clearance w eGFR 48.05 (>60) 11/20/17 07:30 Random Glucose 95 mg/dl (74-106) 11/20/17 07:30 Hemoglobin A1c % 4.9 % (4.8-6.0) D 11/11/17 07:25 Calcium 8.7 mg/dl (8.4-10.2) 11/20/17 07:30 Phosphorus 3.4 mg/dl (2.5-4.6) 11/18/17 07:12 Magnesium 2.2 mg/dL (1.8-2.4) 11/20/17 07:30 Total Bilirubin 1.1 mg/dl (0.2-1.0) H 11/20/17 07:30 AST 39 U/L (10-42) 11/20/17 07:30 ALT 21 U/L (10-40) 11/20/17 07:30 Alkaline Phosphatase 120 U/L (32-92) H 11/20/17 07:30 Total Protein 7.1 g/dl (6.4-8.3) 11/20/17 07:30 Albumin 2.6 g/dl (3.5-5.0) L 11/20/17 07:30 Active Medications Generic Name Dose Route Start Last Admin Trade Name Freq PRN Reason Stop Dose Admin Acetaminophen 650 mg 11/12/17 11:42 11/18/17 09:49 Tylenol - PO 650 mg Q4H PRN Administration FEVER Albuterol/Ipratropium 1 amp 11/14/17 12:15 11/21/17 08:40 Duoneb - NEB 1 amp RQID NEIL Administration Atorvastatin Calcium 10 mg 11/10/17 22:00 11/20/17 21:22 Lipitor - PO 10 mg HS NEIL Administration Dabigatran 150 mg 11/10/17 22:00 11/21/17 09:33 Pradaxa - PO 150 mg BID NEIL Administration Docusate Sodium 100 mg 11/19/17 22:00 11/21/17 06:20 Colace - PO 100 mg TID NEIL Administration Ferrous Sulfate 325 mg 11/11/17 10:00 11/21/17 09:34 Feosol - PO 325 mg DAILY NEIL Administration Furosemide 80 mg 11/17/17 10:00 11/21/17 09:33 Lasix - PO 80 mg DAILY NEIL Administration Guaifenesin 600 mg 11/16/17 13:15 11/21/17 09:34 Mucinex - PO 600 mg BID NEIL Administration Piperacillin Sod/Tazobactam Sod 3.375 gm in 50 mls @ 100 mls/hr 11/13/17 18: 00 11/21/17 09:33 Zosyn 3.375gm Ivpb (Pre-Docked) IVPB 100 mls/hr Q8H-IV NEIL Administration Protocol Lactobacillus Acidophilus 1 tab 11/13/17 10:00 11/21/17 09:35 Bacid - PO 1 tab DAILY NEIL Administration Levothyroxine Sodium 100 mcg 11/11/17 07:00 11/21/17 06:21 Synthroid - PO 100 mcg AM NEIL Administration Metolazone 5 mg 11/17/17 09:30 11/21/17 08:53 Zaroxolyn - PO 5 mg DAILY@0930 NEIL Administration Metoprolol Succinate 100 mg 11/11/17 10:00 11/21/17 09:33 Toprol Xl - PO 100 mg DAILY NEIL Administration Nystatin 1 applic 11/13/17 22:00 11/21/17 09:35 Mycostatin Ointment - TP 1 applic BID NEIL Administration Potassium Chloride 40 meq 11/19/17 22:00 11/21/17 09:34 K-Dur - PO 40 meq BID NEIL Administration Sodium Chloride 3 ml 11/19/17 08:36 Normal Saline For Inhalation - IH Q6H PRN dry cough Microbiology 11/10/17 14:27 Blood - Peripheral Venous Blood Culture - Final NO GROWTH AFTER 5 DAYS INCUBATION 11/10/17 14:00 Blood - Peripheral Venous Blood Culture - Final NO GROWTH AFTER 5 DAYS INCUBATION 11/10/17 14:15 Leg - Right Lower Gram Stain - Final 11/10/17 14:15 Leg - Right Lower Wound Culture - Final Serratia Marcescens Pseudomonas Aeruginosa Enterococcus Faecalis IMAGING chest xray: mild pulmonary vascular congestion tib/fib xray: no acute pathology ultrasound of right lower ext: extensive fluid collection of the subcutaneous soft tissue chest xray from 11/16/17, mild bilateral pleural effusions right greater than left , unchanged from prior ASSESSMENT/PLAN: 1.ID RLE cellulitis, polymicrobrial wound - Vancomycin (2/3 - 2/6), continue Zosyn (2/5-), erythema is nearly resolved, zosyn for a total of 14 days as per ID - emilie bandage, xeroform and Elevate leg 2. Acute on chronic Biventricular systolic heart failure continue Lasix and metolazone - strict I/O and daily weights 3. Atrial Fibrillation, chronic - rate controlled, continue Pradaxa and Toprol xl 100mg daily - Recent cardiology evaluation with Dr. Knox 4. Hypothyroid - Continue Synthroid 5. GILMER - Near baseline, stable, follow 6. Iron deficiency anemia - On ferrous sulfate 7. Ppx - Pradaxa 8. Hypokalemia - In context of diuretic use - potassium 40mdq BID and 40meq x 1, repeat bmp in am DISPO: Requires inpatient services. Visit type - Emergency Visit Emergency Visit: Yes ED Registration Date: 11/10/17 Care time: The patient presented to the Emergency Department on the above date and was hospitalized for further evaluation of their emergent condition. - New Patient This patient is new to me today: No - Critical Care Critical Care patient: No - Discharge Referral Referred to [facility] No
[2017-11-21 12:33] LABS: ANION GAP 6 (8-16); BLOOD UREA NITROGEN 35 mg/dl (7-18); CALCIUM 8.7 mg/dl (8.4-10.2); CHLORIDE 93 mmol/L (98-107); CO2 36 mmol/L (22-28); CREATININE 1.4 mg/dl (0.6-1.3); GLUCOSE,RANDOM 122 mg/dl (74-106); POTASSIUM 3.2 mmol/L (3.5-5.1); SODIUM 135 mmol/L (136-145)
[2017-11-21] MEDS ORDERED: POTASSIUM CHLORIDE TABS 20 MEQ TABLET.ER (FP) PO ONE (14:45)
[2017-11-21] MEDS: ATORVASTATIN CA 10 MG TABLET (FP) PO SCH (21:39)
[2017-11-22] MEDS: PIPERACILLIN/TAZOB 3.375 GM 3.375 GM/50 ML BAG IVPB SCH ×3 (02:14→18:35)
[2017-11-22] MEDS: LEVOTHYROXINE NA 100 MCG TABLET (FP) PO SCH (06:15)
[2017-11-22] MEDS: DOCUSATE SODIUM 100 MG CAPSULE (FP) PO SCH ×3 (06:15→21:24)
[2017-11-22] MEDS: ALBUTEROL SO4 2.5/IPRATROPIUM 0.5 INH SOL 3 ML VIAL.NEB. NEB SCH ×4 (08:45→21:24)
[2017-11-22 08:54] LABS: BASO % 0.5 % (0-2.0); EOS % 2.8 % (0-4.5); HEMOGLOBIN 10.2 GM/dl (11.7-16.9); LYMPH % 14.9 % (8-40); MCH 33.6 pg (25.7-33.7); MCHC 35.1 g/dl (32.0-35.9); MEAN CELL VOLUME 95.7 fl (80-96); MEAN PLT VOLUME 6.8 fl (7.5-11.1); MONO % 4.9 % (3.8-10.2); NEUT % 76.9 % (42.8-82.8); PLATELET COUNT 321 K/MM3 (134-434); RBC 3.04 M/mm3 (4.00-5.60); RDW 16.5 % (11.9-15.9); WHITE BLOOD COUNT 4.5 K/mm3 (4.0-10.8)
[2017-11-22 09:14] LABS: ANION GAP 5 (8-16); BLOOD UREA NITROGEN 34 mg/dl (7-18); CALCIUM 8.1 mg/dl (8.4-10.2); CHLORIDE 96 mmol/L (98-107); CO2 34 mmol/L (22-28); CREATININE 1.4 mg/dl (0.6-1.3); GLUCOSE,RANDOM 96 mg/dl (74-106); PHOSPHOROUS 3.2 mg/dl (2.5-4.6); SODIUM 135 mmol/L (136-145)
[2017-11-22] MEDS ORDERED: PT OWN MED DRAWER 7, Y5N ONE (10:05)
[2017-11-22] MEDS: DABIGATRAN ETEXILATE MESYLATE 150 MG CAPSULE PO SCH ×2 (10:09→21:25)
[2017-11-22] MEDS: FERROUS SO4 325 MG TABLET (FP) PO SCH (10:09)
[2017-11-22] MEDS: guaiFENesin 600 MG TABLET.ER (FP) PO SCH ×2 (10:09→21:25)
[2017-11-22] MEDS: POTASSIUM CHLORIDE TABS 20 MEQ TABLET.ER (FP) PO SCH ×2 (10:10→21:25)
[2017-11-22] MEDS: FUROSEMIDE 40 MG TABLET (FP) PO SCH (10:10)
[2017-11-22] MEDS: NYSTATIN 100000 UNIT/GM TOPICAL OINTMENT 15 GM TUBE TP SCH ×2 (10:10→21:25)
[2017-11-22] MEDS: METOLAZONE 5 MG TABLET PO SCH (10:10)
[2017-11-22] MEDS: LACTOBACILLUS ACIDOPHILUS 1 EACH TAB (FP) PO SCH (10:11)
[2017-11-22] MEDS ORDERED: SODIUM BICARBONATE 2.4 MEQ/5 ML SDVIAL IV ONE (10:45)
[2017-11-22] MEDS: KCL 10 MEQ IVPB 10 MEQ/100 ML INFUS.BAG IVPB SCH ×2 (11:37→14:34)
[2017-11-22] MEDS: SODIUM BICARBONATE 2.4 MEQ/5 ML SDVIAL IV SCH ×2 (11:37→14:34)
--- NOTE | 2017-11-22 13:37 | PN ---
Physical Exam: SUBJECTIVE: Patient seen and examined, reports feeling much improved, denies any tactile fevers. OBJECTIVE:Patient is an 86 year old male with a significant past medical history of hypertension, hld, atrial fibrillation (on Pradaxa), biventricular systolic heart failure, severe TR, CVA (2010), right pleural effusion, s/p thoracentesis (2014), and hypothyroidism admitted with RLE cellulitis. Vital Signs Period Temp Pulse Resp BP Sys/Servin Pulse Ox Last 24 Hr 97.7 F-98.2 F 58-91 17-19 85-118/54-73 94-98 GENERAL: The patient is awake, alert, and fully oriented, in no acute distress. HEAD: Normal with no signs of trauma. EYES: PERRL, extraocular movements intact, sclera anicteric, conjunctiva clear. No ptosis. ENT: Ears normal, nares patent, oropharynx clear without exudates, moist mucous membranes. NECK: Trachea midline, full range of motion, supple. LUNGS: Breath sounds equal, clear to auscultation bilaterally, no wheezes, no crackles, no accessory muscle use. HEART: irregular rate and rhythm, S1, S2 without murmur, rub or gallop. ABDOMEN: Soft, nontender, nondistended, normoactive bowel sounds, no guarding, no rebound, no hepatosplenomegaly, no masses. EXTREMITIES: 2+ pulses, warm, right distal lower extremity--> erythema much improved, no drainage, dressing removed, +1 edema. NEUROLOGICAL: Cranial nerves II through XII grossly intact. Normal speech, gait not observed. PSYCH: Normal mood, normal affect. SKIN: Warm, dry, normal turgor, no rashes or lesions noted Laboratory Results - last 24 hr 11/22/17 11/22/17 08:05 08:05 WBC 4.5 RBC 3.04 L Hgb 10.2 L Hct 29.0 L MCV 95.7 MCH 33.6 MCHC 35.1 RDW 16.5 H Plt Count 321 MPV 6.8 L Neutrophils % 76.9 Lymphocytes % 14.9 D Monocytes % 4.9 Eosinophils % 2.8 Basophils % 0.5 Sodium 135 L Potassium 3.0 L Chloride 96 L Carbon Dioxide 34 H Anion Gap 5 L BUN 34 H Creatinine 1.4 H Random Glucose 96 D Calcium 8.1 L Phosphorus 3.2 Magnesium 2.0 Active Medications Generic Name Dose Route Start Last Admin Trade Name Elioq PRN Reason Stop Dose Admin Acetaminophen 650 mg 11/12/17 11:42 11/18/17 09:49 Tylenol - PO 650 mg Q4H PRN Administration FEVER Albuterol/Ipratropium 1 amp 11/14/17 12:15 11/22/17 11:53 Duoneb - NEB 1 amp RQID NEIL Administration Atorvastatin Calcium 10 mg 11/10/17 22:00 11/21/17 21:39 Lipitor - PO 10 mg HS NEIL Administration Dabigatran 150 mg 11/10/17 22:00 11/22/17 10:09 Pradaxa - PO 150 mg BID NEIL Administration Docusate Sodium 100 mg 11/19/17 22:00 11/22/17 06:15 Colace - PO 100 mg TID NEIL Administration Ferrous Sulfate 325 mg 11/11/17 10:00 11/22/17 10:09 Feosol - PO 325 mg DAILY NEIL Administration Furosemide 80 mg 11/17/17 10:00 11/22/17 10:10 Lasix - PO 80 mg DAILY NEIL Administration Guaifenesin 600 mg 11/16/17 13:15 11/22/17 10:09 Mucinex - PO 600 mg BID NEIL Administration Piperacillin Sod/Tazobactam Sod 3.375 gm in 50 mls @ 100 mls/hr 11/13/17 18: 00 11/22/17 10:08 Zosyn 3.375gm Ivpb (Pre-Docked) IVPB 100 mls/hr Q8H-IV NEIL Administration Protocol Potassium Chloride 10 meq in 100 mls @ 100 mls/hr 11/22/17 14:30 Potassium Chloride 10 Meq Premix Ivpb - IVPB 11/22/17 15:29 Q60M NEIL Lactobacillus Acidophilus 1 tab 11/13/17 10:00 11/22/17 10:11 Bacid - PO 1 tab DAILY NEIL Administration Levothyroxine Sodium 100 mcg 11/11/17 07:00 11/22/17 06:15 Synthroid - PO 100 mcg AM NEIL Administration Metolazone 5 mg 11/17/17 09:30 11/22/17 10:10 Zaroxolyn - PO 5 mg DAILY@0930 NEIL Administration Metoprolol Succinate 100 mg 11/11/17 10:00 11/22/17 10:10 Toprol Xl - PO 100 mg DAILY NEIL Administration Nystatin 1 applic 11/13/17 22:00 11/22/17 10:10 Mycostatin Ointment - TP 1 applic BID NEIL Administration Potassium Chloride 40 meq 11/19/17 22:00 11/22/17 10:10 K-Dur - PO 40 meq BID NEIL Administration Sodium Bicarbonate 2.4 meq 11/22/17 14:30 Neut 4% Injection - IV 11/22/17 14:31 Q1H NEIL Sodium Chloride 3 ml 11/19/17 08:36 Normal Saline For Inhalation - IH Q6H PRN dry cough IMAGING chest xray: mild pulmonary vascular congestion tib/fib xray: no acute pathology ultrasound of right lower ext: extensive fluid collection of the subcutaneous soft tissue chest xray from 11/16/17, mild bilateral pleural effusions right greater than left , unchanged from prior ASSESSMENT/PLAN: 1.ID RLE cellulitis, polymicrobrial wound - Vancomycin (11/11 - 11/14), continue Zosyn (11/13-), erythema is nearly resolved, zosyn for a total of 14 days as per ID - emilie bandage, xeroform and Elevate leg 2. Acute on chronic Biventricular systolic heart failure continue Lasix and metolazone - strict I/O and daily weights 3. Atrial Fibrillation, chronic - rate controlled, continue Pradaxa and Toprol xl 100mg daily - Recent cardiology evaluation with Dr. Knox 4. Hypothyroid - Continue Synthroid 5. GILMER - Near baseline, stable, follow 6. Iron deficiency anemia - On ferrous sulfate 7. Ppx - Pradaxa 8. Hypokalemia - In context of diuretic use - potassium 40mdq BID and kci 10meq x 2, repeat bmp in am DISPO: Requires inpatient services. Visit type - Emergency Visit Emergency Visit: Yes ED Registration Date: 11/10/17 Care time: The patient presented to the Emergency Department on the above date and was hospitalized for further evaluation of their emergent condition. - New Patient This patient is new to me today: No - Critical Care Critical Care patient: No - Discharge Referral Referred to [facility] No
[2017-11-22] MEDS ORDERED: SODIUM BICARBONATE 2.4 MEQ/5 ML SDVIAL IV SCH (14:30)
[2017-11-22] MEDS ORDERED: KCL 10 MEQ IVPB 10 MEQ/100 ML INFUS.BAG IVPB SCH (14:30)
--- NOTE | 2017-11-22 15:31 | PN ---
Progress Note, Physician History of Present Illness: patient doing well no complaints able to walk without pain dressing removed leg looks a lot better - Current Medication List Current Medications: Active Medications Acetaminophen (Tylenol -) 650 mg PO Q4H PRN PRN Reason: FEVER Last Admin: 11/18/17 09:49 Dose: 650 mg Albuterol/Ipratropium (Duoneb -) 1 amp NEB RQID [facility] Last Admin: 11/22/17 11:53 Dose: 1 amp Atorvastatin Calcium (Lipitor -) 10 mg PO HS [facility] Last Admin: 11/21/17 21:39 Dose: 10 mg Dabigatran (Pradaxa -) 150 mg PO BID [facility] Last Admin: 11/22/17 10:09 Dose: 150 mg Docusate Sodium (Colace -) 100 mg PO TID [facility] Last Admin: 11/22/17 14:34 Dose: 100 mg Ferrous Sulfate (Feosol -) 325 mg PO DAILY [facility] Last Admin: 11/22/17 10:09 Dose: 325 mg Furosemide (Lasix -) 80 mg PO DAILY [facility] Last Admin: 11/22/17 10:10 Dose: 80 mg Guaifenesin (Mucinex -) 600 mg PO BID [facility] Last Admin: 11/22/17 10:09 Dose: 600 mg Piperacillin Sod/Tazobactam Sod (Zosyn 3.375gm Ivpb (Pre-Docked)) 3.375 gm in 50 mls @ 100 mls/hr IVPB Q8H-IV NEIL PRN Reason: Protocol Last Admin: 11/22/17 10:08 Dose: 100 mls/hr Potassium Chloride (Potassium Chloride 10 Meq Premix Ivpb -) 10 meq in 100 mls @ 100 mls/hr IVPB Q60M [facility] Stop: 11/22/17 15:29 Last Admin: 11/22/17 14:34 Dose: 100 mls/hr Lactobacillus Acidophilus (Bacid -) 1 tab PO DAILY [facility] Last Admin: 11/22/17 10:11 Dose: 1 tab Levothyroxine Sodium (Synthroid -) 100 mcg PO AM [facility] Last Admin: 11/22/17 06:15 Dose: 100 mcg Metolazone (Zaroxolyn -) 5 mg PO DAILY@0930 [facility] Last Admin: 11/22/17 10:10 Dose: 5 mg Metoprolol Succinate (Toprol Xl -) 100 mg PO DAILY [facility] Last Admin: 11/22/17 10:10 Dose: 100 mg Nystatin (Mycostatin Ointment -) 1 applic TP BID [facility] Last Admin: 11/22/17 10:10 Dose: 1 applic Potassium Chloride (K-Dur -) 40 meq PO BID [facility] Last Admin: 11/22/17 10:10 Dose: 40 meq Sodium Chloride (Normal Saline For Inhalation -) 3 ml IH Q6H PRN PRN Reason: dry cough - Objective Vital Signs: Vital Signs Temperature 97.9 F 11/22/17 13:30 Pulse Rate 63 11/22/17 13:30 Respiratory Rate 20 11/22/17 13:30 Blood Pressure 98/59 11/22/17 13:30 O2 Sat by Pulse Oximetry (%) 98 11/22/17 13:30 Constitutional: Yes: No Distress, Calm Cardiovascular: Yes: S1, S2 Respiratory: Yes: Regular, Poor Air Entry Gastrointestinal: Yes: Normal Bowel Sounds, Soft Musculoskeletal: Yes: WNL Extremities: Yes: Other (edema and cellulitits decreasing) Neurological: Yes: Alert, Oriented Psychiatric: Yes: Alert, Oriented Labs: CBC, BMP 11/22/17 08:05 11/22/17 08:05 Assessment/Plan patient with severe cellulitis of the rt leg with weeping Problem List - Problems (1) Cellulitis Code(s): L03.90 - CELLULITIS, UNSPECIFIED Qualifiers: Site of cellulitis: extremity Site of cellulitis of extremity: lower extremity Laterality: right Qualified Code(s): L03.115 - Cellulitis of right lower limb (2) Atrial fibrillation Code(s): I48.91 - UNSPECIFIED ATRIAL FIBRILLATION (3) Benign prostate hyperplasia Code(s): N40.0 - BENIGN PROSTATIC HYPERPLASIA WITHOUT LOWER URINRY TRACT SYMP (4) Congestive heart failure (CHF) Code(s): I50.9 - HEART FAILURE, UNSPECIFIED (5) Hypothyroidism Code(s): E03.9 - HYPOTHYROIDISM, UNSPECIFIED leg starting to improve plan continue zosyn doing well will deescalte abx in couple of days wound have nearly healed
[2017-11-22] MEDS: ATORVASTATIN CA 10 MG TABLET (FP) PO SCH (21:24)
[2017-11-23] MEDS: PIPERACILLIN/TAZOB 3.375 GM 3.375 GM/50 ML BAG IVPB SCH ×3 (01:22→10:00)
[2017-11-23] MEDS: LEVOTHYROXINE NA 100 MCG TABLET (FP) PO SCH (06:18)
[2017-11-23] MEDS: DOCUSATE SODIUM 100 MG CAPSULE (FP) PO SCH ×2 (06:18→21:22)
[2017-11-23] MEDS: ALBUTEROL SO4 2.5/IPRATROPIUM 0.5 INH SOL 3 ML VIAL.NEB. NEB SCH ×2 (08:34→12:30)
[2017-11-23] MEDS: METOLAZONE 5 MG TABLET PO SCH (09:26)
--- NOTE | 2017-11-23 09:58 | PN ---
Progress Note, Physician History of Present Illness: patient doing well no issues leg improving - Current Medication List Current Medications: Active Medications Acetaminophen (Tylenol -) 650 mg PO Q4H PRN PRN Reason: FEVER Last Admin: 11/18/17 09:49 Dose: 650 mg Albuterol/Ipratropium (Duoneb -) 1 amp NEB RQID [facility] Last Admin: 11/23/17 08:34 Dose: 1 amp Atorvastatin Calcium (Lipitor -) 10 mg PO HS [facility] Last Admin: 11/22/17 21:24 Dose: 10 mg Dabigatran (Pradaxa -) 150 mg PO BID [facility] Last Admin: 11/22/17 21:25 Dose: 150 mg Docusate Sodium (Colace -) 100 mg PO TID [facility] Last Admin: 11/23/17 06:18 Dose: 100 mg Ferrous Sulfate (Feosol -) 325 mg PO DAILY [facility] Last Admin: 11/22/17 10:09 Dose: 325 mg Furosemide (Lasix -) 80 mg PO DAILY [facility] Last Admin: 11/22/17 10:10 Dose: 80 mg Guaifenesin (Mucinex -) 600 mg PO BID [facility] Last Admin: 11/22/17 21:25 Dose: 600 mg Piperacillin Sod/Tazobactam Sod (Zosyn 3.375gm Ivpb (Pre-Docked)) 3.375 gm in 50 mls @ 100 mls/hr IVPB Q8H-IV NEIL PRN Reason: Protocol Last Admin: 11/23/17 01:22 Dose: 100 mls/hr Lactobacillus Acidophilus (Bacid -) 1 tab PO DAILY [facility] Last Admin: 11/22/17 10:11 Dose: 1 tab Levothyroxine Sodium (Synthroid -) 100 mcg PO AM [facility] Last Admin: 11/23/17 06:18 Dose: 100 mcg Metolazone (Zaroxolyn -) 5 mg PO DAILY@0930 [facility] Last Admin: 11/22/17 10:10 Dose: 5 mg Metoprolol Succinate (Toprol Xl -) 100 mg PO DAILY [facility] Last Admin: 11/22/17 10:10 Dose: 100 mg Nystatin (Mycostatin Ointment -) 1 applic TP BID [facility] Last Admin: 11/22/17 21:25 Dose: 1 applic Potassium Chloride (K-Dur -) 40 meq PO BID [facility] Last Admin: 11/22/17 21:25 Dose: 40 meq Sodium Chloride (Normal Saline For Inhalation -) 3 ml IH Q6H PRN PRN Reason: dry cough - Objective Vital Signs: Vital Signs Temperature 97.6 F 11/23/17 06:00 Pulse Rate 97 H 11/23/17 06:00 Respiratory Rate 18 11/23/17 09:00 Blood Pressure 101/57 11/23/17 06:00 O2 Sat by Pulse Oximetry (%) 94 L 11/23/17 09:00 Constitutional: Yes: No Distress, Calm Cardiovascular: Yes: Regular Rate and Rhythm Respiratory: Yes: Regular, Poor Air Entry Gastrointestinal: Yes: Normal Bowel Sounds, Soft Musculoskeletal: Yes: WNL Extremities: Yes: Other Integumentary: Yes: Erythema (resolving) Neurological: Yes: Alert, Oriented Psychiatric: Yes: Alert Labs: CBC, BMP 11/22/17 08:05 11/22/17 08:05 Assessment/Plan patient with severe cellulitis of the rt leg with weeping Problem List - Problems (1) Cellulitis Code(s): L03.90 - CELLULITIS, UNSPECIFIED Qualifiers: Site of cellulitis: extremity Site of cellulitis of extremity: lower extremity Laterality: right Qualified Code(s): L03.115 - Cellulitis of right lower limb (2) Atrial fibrillation Code(s): I48.91 - UNSPECIFIED ATRIAL FIBRILLATION (3) Benign prostate hyperplasia Code(s): N40.0 - BENIGN PROSTATIC HYPERPLASIA WITHOUT LOWER URINRY TRACT SYMP (4) Congestive heart failure (CHF) Code(s): I50.9 - HEART FAILURE, UNSPECIFIED (5) Hypothyroidism Code(s): E03.9 - HYPOTHYROIDISM, UNSPECIFIED leg starting to improve plan continue [place] will see the leg tomorrow and probably will be able to switch to oral abx physiotherapy
[2017-11-23] MEDS: NYSTATIN 100000 UNIT/GM TOPICAL OINTMENT 15 GM TUBE TP SCH ×2 (10:00→21:23)
[2017-11-23] MEDS: FERROUS SO4 325 MG TABLET (FP) PO SCH (10:00)
[2017-11-23] MEDS: FUROSEMIDE 40 MG TABLET (FP) PO SCH (10:00)
[2017-11-23] MEDS: guaiFENesin 600 MG TABLET.ER (FP) PO SCH ×2 (10:00→21:22)
[2017-11-23] MEDS: LACTOBACILLUS ACIDOPHILUS 1 EACH TAB (FP) PO SCH (10:00)
[2017-11-23] MEDS: POTASSIUM CHLORIDE TABS 20 MEQ TABLET.ER (FP) PO SCH ×2 (10:00→21:22)
[2017-11-23] MEDS: DABIGATRAN ETEXILATE MESYLATE 150 MG CAPSULE PO SCH ×2 (10:00→21:23)
--- NOTE | 2017-11-23 13:22 | PN ---
Physical Exam: SUBJECTIVE: Patient seen and examined, reports feeling much imnproved, denies any tactile fever OBJECTIVE:patient is an 86 year old male with a significant past medical history of hypertension, hld, atrial fibrillation (on Pradaxa), biventricular systolic heart failure, severe TR, CVA (2010), right pleural effusion, s/p thoracentesis (2014), and hypothyroidism admitted with RLE cellulitis. Vital Signs Period Temp Pulse Resp BP Sys/Servin Pulse Ox Last 24 Hr 97.3 F-97.9 F 63-97 18-20 98-104/53-59 94-98 GENERAL: The patient is awake, alert, and fully oriented, in no acute distress. HEAD: Normal with no signs of trauma. EYES: PERRL, extraocular movements intact, sclera anicteric, conjunctiva clear. No ptosis. ENT: Ears normal, nares patent, oropharynx clear without exudates, moist mucous membranes. NECK: Trachea midline, full range of motion, supple. LUNGS: Breath sounds equal, clear to auscultation bilaterally, no wheezes, no crackles, no accessory muscle use. HEART: irregular rate and rhythm, S1, S2 without murmur, rub or gallop. ABDOMEN: Soft, nontender, nondistended, normoactive bowel sounds, no guarding, no rebound, no hepatosplenomegaly, no masses. EXTREMITIES: 2+ pulses, warm, right distal lower extremity--> erythema nearly resolved, no drainage, dressing removed, +1 edema. NEUROLOGICAL: Cranial nerves II through XII grossly intact. Normal speech, gait not observed. PSYCH: Normal mood, normal affect. SKIN: Warm, dry, normal turgor, no rashes or lesions noted Active Medications Generic Name Dose Route Start Last Admin Trade Name Freq PRN Reason Stop Dose Admin Acetaminophen 650 mg 11/12/17 11:42 11/18/17 09:49 Tylenol - PO 650 mg Q4H PRN Administration FEVER Albuterol/Ipratropium 1 amp 11/14/17 12:15 11/23/17 12:30 Duoneb - NEB 1 amp RQID NEIL Administration Atorvastatin Calcium 10 mg 11/10/17 22:00 11/22/17 21:24 Lipitor - PO 10 mg HS NEIL Administration Dabigatran 150 mg 11/10/17 22:00 11/23/17 10:00 Pradaxa - PO 150 mg BID NEIL Administration Docusate Sodium 100 mg 11/19/17 22:00 11/23/17 06:18 Colace - PO 100 mg TID NEIL Administration Ferrous Sulfate 325 mg 11/11/17 10:00 11/23/17 10:00 Feosol - PO 325 mg DAILY NEIL Administration Furosemide 80 mg 11/17/17 10:00 11/23/17 10:00 Lasix - PO 80 mg DAILY NEIL Administration Guaifenesin 600 mg 11/16/17 13:15 11/23/17 10:00 Mucinex - PO 600 mg BID NEIL Administration Piperacillin Sod/Tazobactam Sod 3.375 gm in 50 mls @ 100 mls/hr 11/13/17 18: 00 11/23/17 10:00 Zosyn 3.375gm Ivpb (Pre-Docked) IVPB 100 mls/hr Q8H-IV NEIL Administration Protocol Lactobacillus Acidophilus 1 tab 11/13/17 10:00 11/23/17 10:00 Bacid - PO 1 tab DAILY NEIL Administration Levothyroxine Sodium 100 mcg 11/11/17 07:00 11/23/17 06:18 Synthroid - PO 100 mcg AM NEIL Administration Metolazone 5 mg 11/17/17 09:30 11/22/17 10:10 Zaroxolyn - PO 5 mg DAILY@0930 NEIL Administration Metoprolol Succinate 100 mg 11/11/17 10:00 11/23/17 10:00 Toprol Xl - PO 100 mg DAILY NEIL Administration Nystatin 1 applic 11/13/17 22:00 11/23/17 10:00 Mycostatin Ointment - TP 1 applic BID NEIL Administration Potassium Chloride 40 meq 11/19/17 22:00 11/23/17 10:00 K-Dur - PO 40 meq BID NEIL Administration Sodium Chloride 3 ml 11/19/17 08:36 Normal Saline For Inhalation - IH Q6H PRN dry cough Microbiology 11/10/17 14:27 Blood - Peripheral Venous Blood Culture - Final NO GROWTH AFTER 5 DAYS INCUBATION 11/10/17 14:00 Blood - Peripheral Venous Blood Culture - Final NO GROWTH AFTER 5 DAYS INCUBATION 11/10/17 14:15 Leg - Right Lower Gram Stain - Final 11/10/17 14:15 Leg - Right Lower Wound Culture - Final Serratia Marcescens Pseudomonas Aeruginosa Enterococcus Faecalis IMAGING chest xray: mild pulmonary vascular congestion tib/fib xray: no acute pathology ultrasound of right lower ext: extensive fluid collection of the subcutaneous soft tissue chest xray from 11/16/17, mild bilateral pleural effusions right greater than left , unchanged from prior ASSESSMENT/PLAN: 1.ID RLE cellulitis, polymicrobrial wound - Vancomycin (11/11 - 11/14), continue Zosyn (/-), erythema is nearly resolved, zosyn for a total of 14 days as per ID - emilie bandage, xeroform and Elevate leg 2. Acute on chronic Biventricular systolic heart failure continue Lasix and metolazone - strict I/O and daily weights 3. Atrial Fibrillation, chronic - rate controlled, continue Pradaxa and Toprol xl 100mg daily - Recent cardiology evaluation with Dr. Knox 4. Hypothyroid - Continue Synthroid 5. GILMER - Near baseline, stable, follow 6. Iron deficiency anemia - On ferrous sulfate 7. Ppx - Pradaxa 8. Hypokalemia - In context of diuretic use - potassium 40mdq BID, repeat bmp in am DISPO: Requires inpatient services. Visit type - Emergency Visit Emergency Visit: Yes ED Registration Date: 11/10/17 Care time: The patient presented to the Emergency Department on the above date and was hospitalized for further evaluation of their emergent condition. - New Patient This patient is new to me today: No - Critical Care Critical Care patient: No - Discharge Referral Referred to [facility] No
[2017-11-23 17:03] LABS: ANION GAP 9 (8-16); BLOOD UREA NITROGEN 36 mg/dl (7-18); CALCIUM 8.4 mg/dl (8.4-10.2); CHLORIDE 94 mmol/L (98-107); CO2 32 mmol/L (22-28); CREATININE 1.3 mg/dl (0.6-1.3); GLUCOSE,RANDOM 97 mg/dl (74-106); POTASSIUM 3.4 mmol/L (3.5-5.1); SODIUM 135 mmol/L (136-145)
[2017-11-23] MEDS: ATORVASTATIN CA 10 MG TABLET (FP) PO SCH (21:23)
[2017-11-24] MEDS: PIPERACILLIN/TAZOB 3.375 GM 3.375 GM/50 ML BAG IVPB SCH ×3 (02:26→18:11)
[2017-11-24] MEDS: DOCUSATE SODIUM 100 MG CAPSULE (FP) PO SCH ×3 (06:37→21:08)
[2017-11-24] MEDS: LEVOTHYROXINE NA 100 MCG TABLET (FP) PO SCH (06:37)
[2017-11-24] MEDS: ALBUTEROL SO4 2.5/IPRATROPIUM 0.5 INH SOL 3 ML VIAL.NEB. NEB SCH ×4 (08:41→21:08)
[2017-11-24] MEDS: METOLAZONE 5 MG TABLET PO SCH (09:26)
[2017-11-24] MEDS: LACTOBACILLUS ACIDOPHILUS 1 EACH TAB (FP) PO SCH (09:28)
[2017-11-24] MEDS: FERROUS SO4 325 MG TABLET (FP) PO SCH (09:28)
[2017-11-24] MEDS: POTASSIUM CHLORIDE TABS 20 MEQ TABLET.ER (FP) PO SCH ×2 (09:28→21:08)
[2017-11-24] MEDS: DABIGATRAN ETEXILATE MESYLATE 150 MG CAPSULE PO SCH ×2 (09:29→21:09)
[2017-11-24] MEDS: guaiFENesin 600 MG TABLET.ER (FP) PO SCH ×2 (09:29→21:09)
[2017-11-24] MEDS: NYSTATIN 100000 UNIT/GM TOPICAL OINTMENT 15 GM TUBE TP SCH ×2 (09:30→21:09)
[2017-11-24 09:51] LABS: ANION GAP 8 (8-16); BLOOD UREA NITROGEN 34 mg/dl (7-18); CALCIUM 8.4 mg/dl (8.4-10.2); CHLORIDE 94 mmol/L (98-107); CO2 34 mmol/L (22-28); CREATININE 1.3 mg/dl (0.6-1.3); GLUCOSE,RANDOM 92 mg/dl (74-106); MAGNESIUM 1.9 mg/dL (1.8-2.4); SODIUM 136 mmol/L (136-145)
[2017-11-24 09:53] LABS: POTASSIUM 2.6 mmol/L (3.5-5.1)
[2017-11-24] MEDS ORDERED: MAGNESIUM SULFATE 2 GM in SODIUM CHLORIDE 100 ML IVPB ONE (09:54)
[2017-11-24] MEDS: FUROSEMIDE 40 MG TABLET (FP) PO SCH (10:00)
[2017-11-24] MEDS: SODIUM BICARBONATE 2.4 MEQ/5 ML SDVIAL IV SCH ×3 (10:30→12:30)
[2017-11-24] MEDS: KCL 10 MEQ IVPB 10 MEQ/100 ML INFUS.BAG IVPB SCH ×3 (10:30→12:30)
[2017-11-24] MEDS ORDERED: MAGNESIUM SULF 50% (8.12 MEQ/2 ML-1 GM VIAL) ONE (10:48)
--- NOTE | 2017-11-24 12:07 | PN ---
Progress Note, Physician History of Present Illness: doing well no issues leg looks good - Current Medication List Current Medications: Active Medications Acetaminophen (Tylenol -) 650 mg PO Q4H PRN PRN Reason: FEVER Last Admin: 11/18/17 09:49 Dose: 650 mg Albuterol/Ipratropium (Duoneb -) 1 amp NEB RQID [facility] Last Admin: 11/23/17 12:30 Dose: 1 amp Atorvastatin Calcium (Lipitor -) 10 mg PO HS [facility] Last Admin: 11/23/17 21:23 Dose: 10 mg Dabigatran (Pradaxa -) 150 mg PO BID [facility] Last Admin: 11/24/17 09:29 Dose: 150 mg Docusate Sodium (Colace -) 100 mg PO TID [facility] Last Admin: 11/24/17 06:37 Dose: 100 mg Ferrous Sulfate (Feosol -) 325 mg PO DAILY [facility] Last Admin: 11/24/17 09:28 Dose: 325 mg Furosemide (Lasix -) 80 mg PO DAILY [facility] Last Admin: 11/24/17 10:00 Dose: 80 mg Guaifenesin (Mucinex -) 600 mg PO BID [facility] Last Admin: 11/24/17 09:29 Dose: 600 mg Piperacillin Sod/Tazobactam Sod (Zosyn 3.375gm Ivpb (Pre-Docked)) 3.375 gm in 50 mls @ 100 mls/hr IVPB Q8H-IV NEIL PRN Reason: Protocol Last Admin: 11/24/17 09:27 Dose: 100 mls/hr Potassium Chloride (Potassium Chloride 10 Meq Premix Ivpb -) 10 meq in 100 mls @ 100 mls/hr IVPB Q60M [facility] Stop: 11/24/17 13:29 Last Admin: 11/24/17 10:30 Dose: 100 mls/hr MAGNESIUM SULFATE IN WATER (Magnesium Sulf 2 G/50 Ml Bag) 2 gm in 50 mls @ 50 mls/hr IVPB ONCE ONE Stop: 11/24/17 14:59 Lactobacillus Acidophilus (Bacid -) 1 tab PO DAILY [facility] Last Admin: 11/24/17 09:28 Dose: 1 tab Levothyroxine Sodium (Synthroid -) 100 mcg PO AM [facility] Last Admin: 11/24/17 06:37 Dose: 100 mcg Metolazone (Zaroxolyn -) 5 mg PO DAILY@0930 [facility] Last Admin: 11/24/17 09:26 Dose: 5 mg Metoprolol Succinate (Toprol Xl -) 100 mg PO DAILY [facility] Last Admin: 11/24/17 09:29 Dose: 100 mg Nystatin (Mycostatin Ointment -) 1 applic TP BID [facility] Last Admin: 11/24/17 09:30 Dose: 1 applic Potassium Chloride (K-Dur -) 40 meq PO BID [facility] Last Admin: 11/24/17 09:28 Dose: 40 meq Sodium Bicarbonate (Neut 4% Injection -) 2.4 meq IV Q1H [facility] Stop: 11/24/17 12:31 Last Admin: 11/24/17 10:30 Dose: 2.4 meq Sodium Chloride (Normal Saline For Inhalation -) 3 ml IH Q6H PRN PRN Reason: dry cough - Objective Vital Signs: Vital Signs Temperature 97.4 F L 11/24/17 06:18 Pulse Rate 83 11/24/17 06:18 Respiratory Rate 18 11/24/17 08:52 Blood Pressure 117/58 11/24/17 06:18 O2 Sat by Pulse Oximetry (%) 98 11/24/17 08:52 Constitutional: Yes: No Distress, Calm Cardiovascular: Yes: Regular Rate and Rhythm Respiratory: Yes: Regular, CTA Bilaterally Gastrointestinal: Yes: Normal Bowel Sounds, Soft Musculoskeletal: Yes: WNL Extremities: Yes: Other Wound/Incision: Yes: Dressing Dry and Intact Neurological: Yes: Alert, Oriented Psychiatric: Yes: Alert, Oriented Labs: CBC, BMP 11/22/17 08:05 11/24/17 07:00 Assessment/Plan patient with severe cellulitis of the rt leg with weeping Problem List - Problems (1) Cellulitis Code(s): L03.90 - CELLULITIS, UNSPECIFIED Qualifiers: Site of cellulitis: extremity Site of cellulitis of extremity: lower extremity Laterality: right Qualified Code(s): L03.115 - Cellulitis of right lower limb (2) Atrial fibrillation Code(s): I48.91 - UNSPECIFIED ATRIAL FIBRILLATION (3) Benign prostate hyperplasia Code(s): N40.0 - BENIGN PROSTATIC HYPERPLASIA WITHOUT LOWER URINRY TRACT SYMP (4) Congestive heart failure (CHF) Code(s): I50.9 - HEART FAILURE, UNSPECIFIED (5) Hypothyroidism Code(s): E03.9 - HYPOTHYROIDISM, UNSPECIFIED leg starting to improve plan patient can be switched to levaquin 500mg daily for 4 days augmentin 500 mg daily 4 days
[2017-11-24] MEDS ORDERED: MAGNESIUM SULFATE IN WATER 2 GM/50 ML IVPB IVPB ONE (14:00)
--- NOTE | 2017-11-24 15:19 | DS ---
Physical Exam: SUBJECTIVE: Patient seen and examined, reports feeling well,ambulatory throughout nursing station with walker, denies any chest pain or shortness of breath, patient reports feeling much improved. OBJECTIVE:Assessment: 86 year old male pMHx significant for HTN, HLD, afib on [place], biventricular systolic heart failure, severe TR, CVA (2010), right pleural effusion s/p thoracentesis (2014), and hypothyroidism presented to the ED after 1 week of worsening RLE edema, erythema, and weeping leg. 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 Polo in the office and was placed on PO antibiotics. He returned to the ED today with worsening erythema, swelling and weeping. He denies fever, chills, sob, nausea, vomiting. Vital Signs Period Temp Pulse Resp BP Sys/Servin Pulse Ox Last 24 Hr 97.4 F-98.1 F 65-87 18-20 100-117/58-61 94-98 PHYSICAL EXAM GENERAL: The patient is awake, alert, and fully oriented, in no acute distress. HEAD: Normal with no signs of trauma. EYES: PERRL, extraocular movements intact, sclera anicteric, conjunctiva clear. No ptosis. ENT: Ears normal, nares patent, oropharynx clear without exudates, moist mucous membranes. NECK: Trachea midline, full range of motion, supple. LUNGS: Breath sounds equal, clear to auscultation bilaterally, no wheezes, no crackles, no accessory muscle use. HEART: irregular rate and rhythm, S1, S2 without murmur, rub or gallop. ABDOMEN: Soft, nontender, nondistended, normoactive bowel sounds, no guarding, no rebound, no hepatosplenomegaly, no masses. EXTREMITIES: 2+ pulses, warm, right distal lower extremity--> erythema nearly resolved, no drainage, dressing removed, +1 edema. NEUROLOGICAL: Cranial nerves II through XII grossly intact. Normal speech, gait not observed. PSYCH: Normal mood, normal affect. SKIN: Warm, dry, normal turgor, no rashes or lesions noted LABS Laboratory Results - last 24 hr 11/23/17 11/24/17 13:15 07:00 Sodium 135 L 136 Potassium 3.4 L 2.6 L* D Chloride 94 L 94 L Carbon Dioxide 32 H 34 H Anion Gap 9 8 BUN 36 H 34 H Creatinine 1.3 1.3 Random Glucose 97 92 Calcium 8.4 8.4 Magnesium 2.0 1.9 Microbiology 11/10/17 14:27 Blood - Peripheral Venous Blood Culture - Final NO GROWTH AFTER 5 DAYS INCUBATION 11/10/17 14:00 Blood - Peripheral Venous Blood Culture - Final NO GROWTH AFTER 5 DAYS INCUBATION 11/10/17 14:15 Leg - Right Lower Gram Stain - Final 11/10/17 14:15 Leg - Right Lower Wound Culture - Final Serratia Marcescens Pseudomonas Aeruginosa Enterococcus Faecalis IMAGING chest xray: mild pulmonary vascular congestion tib/fib xray: no acute pathology ultrasound of right lower ext: extensive fluid collection of the subcutaneous soft tissue chest xray from 11/16/17, mild bilateral pleural effusions right greater than left , unchanged from prior HOSPITAL COURSE: 1. RLE cellulitis, polymicrobrial wound - Vancomycin (11/11 - 11/14), Zosyn (11/13- 11/24), erythema is resolved - emilie bandage, xeroform and Elevate leg - ID Dr Burdick consulted and followed patient throughout admission 2. Acute on chronic Biventricular systolic heart failure continue Lasix and metolazone - strict I/O and daily weights, patient remained euvolemic throughout exam 3. Atrial Fibrillation, chronic - rate controlled, continued Pradaxa and Toprol xl 100mg daily - Recent cardiology evaluation with Dr. Knox 4. Hypothyroid - Continue Synthroid 5. GILMER - Near baseline, stable, follow 6. Iron deficiency anemia - On ferrous sulfate 7. Ppx - Pradaxa 8. Hypokalemia - In context of diuretic use - potassium 40mdq BID, discussed with Dr Baker ([place]) agrees with lasix at 80mg daily and metalozone 2.5mg Date of Admission:11/10/17 Date of Discharge: 11/24/17 Minutes to complete discharge: 45 Discharge Summary Reason For Visit: CELLULITIS Current Active Problems Cellulitis (Acute) Macular degeneration of both eyes (Acute) Macular degeneration, age related (Acute) Systolic CHF, chronic (Acute) Condition: Improved - Instructions Diet, Activity, Other Instructions: you were admitted for cellultis of the right lower extremity continue augmentin and levaquin for the next 4 days elevate right lower extremity as much as possible throughout the day emilie bandage continue lasix and metolazone daily with potassium please follow up with Dr Polo within 5 days for a repeat potassium if any new or persistent symptoms develop please return to the emergency department Referrals: Dyan Knox MD [Staff Physician] - 2 Weeks Brian Polo MD [Staff Physician] - 1 Week Disposition: VNS/HOME HEALTH CARE - Home Medications Comprehensive Discharge Medication List: Ambulatory Orders Calcium Carbonate [Calcium] 500 mg PO BID tablet 11/06/14 Multivitamin [Daily Vitamin] 1 each PO DAILY tablet 11/06/14 [place]-3/Dha/Epa/Lut/Zeaxanthin [[facility] Softgel] 1 each PO 2 CAPS BID capsule 04/26/17 Ferrous Sulfate 325 mg PO DAILY 08/31/17 Furosemide [Lasix] 80 mg PO BID #60 tablet 09/06/17 Metoprolol Succinate [Toprol Xl -] 100 mg PO DAILY #30 tab.sr.24h 09/06/17 Cephalexin 250 mg PO TID 11/10/17 Metolazone [Zaroxolyn -] 5 mg PO BID 11/10/17 This patient is new to me today: No Emergency Visit: Yes ED Registration Date: 11/10/17 Care time: The patient presented to the Emergency Department on the above date and was hospitalized for further evaluation of their emergent condition. Critical Care patient: No - Discharge Referral Referred to [facility] No
[2017-11-24 17:19] LABS: ANION GAP 9 (8-16); BLOOD UREA NITROGEN 37 mg/dl (7-18); CHLORIDE 93 mmol/L (98-107); CO2 33 mmol/L (22-28); CREATININE 1.6 mg/dl (0.6-1.3); GLUCOSE,RANDOM 104 mg/dl (74-106); POTASSIUM 3.4 mmol/L (3.5-5.1); SODIUM 135 mmol/L (136-145)
[2017-11-24] MEDS: ATORVASTATIN CA 10 MG TABLET (FP) PO SCH (21:07)
[2017-11-25] MEDS: PIPERACILLIN/TAZOB 3.375 GM 3.375 GM/50 ML BAG IVPB SCH ×2 (02:29→10:06)
[2017-11-25] MEDS: LEVOTHYROXINE NA 100 MCG TABLET (FP) PO SCH (06:18)
[2017-11-25] MEDS: DOCUSATE SODIUM 100 MG CAPSULE (FP) PO SCH ×2 (06:18→08:17)
[2017-11-25 06:57] VITALS: PULSE 64
[2017-11-25] MEDS: ALBUTEROL SO4 2.5/IPRATROPIUM 0.5 INH SOL 3 ML VIAL.NEB. NEB SCH ×2 (08:16→08:17)
[2017-11-25] MEDS ORDERED: METOLAZONE 5 MG TABLET PO SCH (09:30)
--- NOTE | 2017-11-25 09:41 | PN ---
Progress Note, Physician History of Present Illness: Infectious Disease f/u note: Pt doing well. Afebrile. Decreased RLE erythema/edema. No specific complaints. - Current Medication List Current Medications: Active Medications Acetaminophen (Tylenol -) 650 mg PO Q4H PRN PRN Reason: FEVER Last Admin: 11/18/17 09:49 Dose: 650 mg Albuterol/Ipratropium (Duoneb -) 1 amp NEB RQID [facility] Last Admin: 11/25/17 08:17 Dose: Not Given Atorvastatin Calcium (Lipitor -) 10 mg PO HS [facility] Last Admin: 11/24/17 21:07 Dose: 10 mg Dabigatran (Pradaxa -) 150 mg PO BID [facility] Last Admin: 11/24/17 21:09 Dose: 150 mg Docusate Sodium (Colace -) 100 mg PO TID [facility] Last Admin: 11/25/17 08:17 Dose: Not Given Ferrous Sulfate (Feosol -) 325 mg PO DAILY [facility] Last Admin: 11/24/17 09:28 Dose: 325 mg Furosemide (Lasix -) 80 mg PO DAILY [facility] Last Admin: 11/24/17 10:00 Dose: 80 mg Guaifenesin (Mucinex -) 600 mg PO BID [facility] Last Admin: 11/24/17 21:09 Dose: 600 mg Piperacillin Sod/Tazobactam Sod (Zosyn 3.375gm Ivpb (Pre-Docked)) 3.375 gm in 50 mls @ 100 mls/hr IVPB Q8H-IV NEIL PRN Reason: Protocol Last Admin: 11/25/17 02:29 Dose: 100 mls/hr Lactobacillus Acidophilus (Bacid -) 1 tab PO DAILY [facility] Last Admin: 11/24/17 09:28 Dose: 1 tab Levothyroxine Sodium (Synthroid -) 100 mcg PO AM [facility] Last Admin: 11/25/17 06:18 Dose: 100 mcg Metolazone (Zaroxolyn -) 2.5 mg PO DAILY@0930 [facility] Metoprolol Succinate (Toprol Xl -) 100 mg PO DAILY [facility] Last Admin: 11/24/17 09:29 Dose: 100 mg Nystatin (Mycostatin Ointment -) 1 applic TP BID [facility] Last Admin: 11/24/17 21:09 Dose: 1 applic Potassium Chloride (K-Dur -) 40 meq PO BID [facility] Last Admin: 11/24/17 21:08 Dose: 40 meq Sodium Chloride (Normal Saline For Inhalation -) 3 ml IH Q6H PRN PRN Reason: dry cough - Objective Vital Signs: Vital Signs Temperature 97.5 F L 11/25/17 06:00 Pulse Rate 64 11/25/17 06:00 Respiratory Rate 20 11/25/17 06:00 Blood Pressure 93/55 11/25/17 06:00 O2 Sat by Pulse Oximetry (%) 94 L 11/25/17 06:00 Constitutional: Yes: No Distress, Calm Cardiovascular: Yes: Regular Rate and Rhythm Respiratory: Yes: Regular Gastrointestinal: Yes: Normal Bowel Sounds, Soft Genitourinary: Yes: WNL Extremities: Yes: Erythema (improved RLE erythema/edema, no tenderness) Neurological: Yes: Alert, Oriented Labs: CBC, BMP 11/22/17 08:05 11/24/17 16:30 Problem List - Problems (1) Cellulitis Code(s): L03.90 - CELLULITIS, UNSPECIFIED Qualifiers: Site of cellulitis: extremity Site of cellulitis of extremity: lower extremity Laterality: right Qualified Code(s): L03.115 - Cellulitis of right lower limb (2) Acute kidney injury Code(s): N17.9 - ACUTE KIDNEY FAILURE, UNSPECIFIED (3) Atrial fibrillation Code(s): I48.91 - UNSPECIFIED ATRIAL FIBRILLATION (4) Benign prostate hyperplasia Code(s): N40.0 - BENIGN PROSTATIC HYPERPLASIA WITHOUT LOWER URINRY TRACT SYMP (5) Congestive heart failure (CHF) Code(s): I50.9 - HEART FAILURE, UNSPECIFIED (6) H/O: CVA (cerebrovascular accident) Code(s): Z86.73 - PRSNL HX OF TIA (TIA), AND CEREB INFRC W/O RESID DEFICITS Assessment/Plan Pt with RLE cellulitis - clinically improved -- may switch to augmentin 500 mg po bid and levaquin 500 mg daily x 4 days each -- f/u with PMD in one wk
[2017-11-25 10:03] VITALS: BP 100/57; TEMP 97.4
[2017-11-25] MEDS: DABIGATRAN ETEXILATE MESYLATE 150 MG CAPSULE PO SCH (10:03)
[2017-11-25] MEDS: FERROUS SO4 325 MG TABLET (FP) PO SCH (10:03)
[2017-11-25] MEDS: POTASSIUM CHLORIDE TABS 20 MEQ TABLET.ER (FP) PO SCH (10:04)
[2017-11-25] MEDS: guaiFENesin 600 MG TABLET.ER (FP) PO SCH (10:04)
[2017-11-25] MEDS: FUROSEMIDE 40 MG TABLET (FP) PO SCH (10:04)
[2017-11-25] MEDS: LACTOBACILLUS ACIDOPHILUS 1 EACH TAB (FP) PO SCH (10:05)
[2017-11-25] MEDS: NYSTATIN 100000 UNIT/GM TOPICAL OINTMENT 15 GM TUBE TP SCH (10:05)
--- NOTE | 2017-11-25 14:11 | PN ---
Progress Note (short form) - Note Progress Note: The patient is an 86 year old male with a significant past medical history of hypertension, hld, atrial fibrillation (on Pradaxa), biventricular systolic heart failure, severe TR, CVA (2010), right pleural effusion, s/p thoracentesis (2014), and hypothyroidism admitted with RLE cellulitis. SUBJECTIVE: Patient seen and examined, reports feeling much improved,no complains today. Laboratory Results - last 24 hr 11/24/17 16:30 Sodium 135 L Potassium 3.4 L D Chloride 93 L Carbon Dioxide 33 H Anion Gap 9 BUN 37 H Creatinine 1.6 H D Random Glucose 104 Calcium 9.0 Microbiology 11/10/17 14:27 Blood - Peripheral Venous Blood Culture - Final NO GROWTH AFTER 5 DAYS INCUBATION 11/10/17 14:00 Blood - Peripheral Venous Blood Culture - Final NO GROWTH AFTER 5 DAYS INCUBATION 11/10/17 14:15 Leg - Right Lower Gram Stain - Final 11/10/17 14:15 Leg - Right Lower Wound Culture - Final Serratia Marcescens Pseudomonas Aeruginosa Enterococcus Faecalis Vital Signs - 24 hr 11/24/17 11/24/17 11/24/17 15:01 21:00 23:00 Temperature 98.1 F 97.9 F Pulse Rate 65 72 Respiratory 20 20 Rate Blood Pressure 114/60 94/54 O2 Sat by Pulse 94 L 94 L Oximetry (%) 11/25/17 11/25/17 06:00 10:02 Temperature 97.5 F L 97.4 F L Pulse Rate 64 64 Respiratory 20 18 Rate Blood Pressure 93/55 100/57 O2 Sat by Pulse 94 L Oximetry (%) GENERAL: The patient is awake, alert, and fully oriented, in no acute distress. HEAD: Normal with no signs of trauma. EYES: PERRL, extraocular movements intact, sclera anicteric, conjunctiva clear. No ptosis. ENT: Ears normal, nares patent, oropharynx clear without exudates, moist mucous membranes. NECK: Trachea midline, full range of motion, supple. LUNGS: Breath sounds equal, clear to auscultation bilaterally, no wheezes, no crackles, no accessory muscle use. HEART: irregular rate and rhythm, S1, S2 without murmur, rub or gallop. ABDOMEN: Soft, nontender, nondistended, normoactive bowel sounds, no guarding, no rebound, no hepatosplenomegaly, no masses. EXTREMITIES: 2+ pulses, warm, right distal lower extremity--> mild erythema nearly resolved, no drainage, dressing removed, +1 edema. NEUROLOGICAL: Cranial nerves II through XII grossly intact. Normal speech, gait not observed. PSYCH: Normal mood, normal affect. SKIN: Warm, dry, normal turgor, no rashes or lesions noted A/P 1. RLE cellulitis, polymicrobrial wound- improved - s/p vanco and Zosyn - no transitioned to Augmentin and Levaquin - wound care emilie bandage, xeroform and Elevate leg -ID cleared for discharge 2. Acute on chronic Biventricular systolic heart failure- stable continue Lasix and metolazone - strict I/O and daily weights, patient remained euvolemic throughout exam 3. Atrial Fibrillation, chronic- rate controlled - continued Pradaxa and Toprol xl 100mg daily - Recent cardiology evaluation with Dr. Knox 4. Hypothyroid - Continue Synthroid 5. GILMER - Near baseline, stable, follow 6. Iron deficiency anemia - CBC stable - On ferrous sulfate 7. Ppx - Pradaxa 8. Hypokalemia - In context of diuretic use - potassium 40mdq BID, discussed with Dr Baker (Lisette) agrees with lasix at 80mg daily and metalozone 2.5mg Dispo:Discharged to home with family. Visit type - Emergency Visit Emergency Visit: Yes ED Registration Date: 11/10/17 Care time: The patient presented to the Emergency Department on the above date and was hospitalized for further evaluation of their emergent condition. - New Patient This patient is new to me today: Yes Date on this admission: 11/25/17 - Critical Care Critical Care patient: No
== END 2017-11-25 13:30 | disposition home health service (06) | DRG 602 ==
LOC: FER 13:13 → FM/S 15:28
PROVIDERS: ADMIT Internal Medicine; ATTEND Nurse Practitioner Family
DX: L03.115 Cellulitis of right lower limb (principal); I50.23 Acute on chronic systolic (congestive) heart failure; N17.9 Acute kidney failure, unspecified; E87.1 Hypo-osmolality and hyponatremia; J90 Pleural effusion, not elsewhere classified; E78.5 Hyperlipidemia, unspecified; E03.9 Hypothyroidism, unspecified; I27.20 Pulmonary hypertension, unspecified; N40.0 Benign prostatic hyperplasia without lower urinary tract symptoms; K21.9 Gastro-esophageal reflux disease without esophagitis; I07.1 Rheumatic tricuspid insufficiency; I50.82 Biventricular heart failure; K64.8 Other hemorrhoids; S81.801A Unspecified open wound, right lower leg, initial encounter; M19.90 Unspecified osteoarthritis, unspecified site; D50.9 Iron deficiency anemia, unspecified; I48.2 Chronic atrial fibrillation; I11.0 Hypertensive heart disease with heart failure; E87.6 Hypokalemia; K59.09 Other constipation; H35.3132 Nonexudative age-related macular degeneration, bilateral, intermediate dry stage; Z87.11 Personal history of peptic ulcer disease; Z86.73 Personal history of transient ischemic attack (TIA), and cerebral infarction without residual deficits; Z96.643 Presence of artificial hip joint, bilateral
CPT/HCPCS: 36415; 71045-TC-FY; 73590-TC-RT-FY; 74021-TC-FY; 76882; 80048; 80053; 81003; 83036; 83735; 84100; 84132; 85025; 85027; 87040; 87070; 87186; 87205; 93005; 94010; 94640; 97116-GP; 97161-GP; 99283-25; G0480

== ENCOUNTER 2017-12-16 10:07 | Emergency (ER) | payer OTHER ==
--- NOTE | 2017-12-16 10:17 | PDOC ---
History of Present Illness - General Chief Complaint: Redness To Affected Area Stated Complaint: LEFT LEG CELLULITIS Time Seen by Provider: 12/16/17 10:17 - History of Present Illness Initial Comments: 12/16/17 10:18 87 year old male hx of HTN, HLD, afib on [place], biventricular systolic heart failure, severe TR, CVA (2010), right pleural effusion s/p thoracentesis (2015), hypothyroidism, recent admission for RLE cellulitis is sent to the ED by Dr. Burdick for cellulitis of LLE. Patient reports for the last week he developed redness of the left foot and anterior calf. He denies any warmth to the leg, denies fevers or chills. Also denies any pains in the left lower extremity. Denies any other symptoms, has been in his usual state of health since she was discharged. Reports significant improvement in the redness to the right lower extremity since his discharge from the hospital. Denies chest pain, shortness of breath, abdominal pain, focal weakness or numbness. Has been compliant with dabigitran. Past History - Past Medical History Allergies/Adverse Reactions: Allergies Allergy/AdvReac Type Severity Reaction Status Date / Time No Known Allergies Allergy Verified 11/10/17 13:37 Home Medications: Ambulatory Orders Calcium Carbonate [Calcium] 500 mg PO BID tablet 11/06/14 Multivitamin [Daily Vitamin] 1 each PO DAILY tablet 11/06/14 [place]-3/Dha/Epa/Lut/Zeaxanthin [[facility] Softgel] 1 each PO 2 CAPS BID capsule 04/26/17 Ferrous Sulfate 325 mg PO DAILY 08/31/17 Metoprolol Succinate [Toprol XL -] 100 mg PO DAILY #30 tab.sr.24h 09/06/17 Acetaminophen [Tylenol .Regular Strength -] 650 mg PO Q4H PRN tablet 11/24/17 Docusate Sodium [Colace -] 100 mg PO TID capsule 11/24/17 Furosemide [Lasix -] 80 mg PO DAILY #60 tablet 11/24/17 Metolazone [Zaroxolyn -] 2.5 mg PO DAILY@0930 #30 tablet 11/24/17 Potassium Chloride [K-Dur -] 40 meq PO BID #60 tablet.er 11/24/17 Famotidine [Pepcid] 20 mg PO MOWEFR 12/16/17 Magnesium Oxide [Magnesium] 400 mg PO HS 12/16/17 Anemia: No Asthma: No Cancer: Yes (Skin) Cardiac Disorders: Yes (atrial fibrillation) CVA: Yes (2005-arem-sj weakness) COPD: No CHF: Yes Dementia: No Diabetes: No GI Disorders: No Disorders: No HTN: No Hypercholesterolemia: Yes Liver Disease: No Seizures: No Thyroid Disease: Yes - Surgical History Abdominal Surgery: Yes (Colon Resection) Appendectomy: No Cardiac Surgery: No Cholecystectomy: No GI Surgery: Yes (large intestine) Lung Surgery: Yes (Thorocentesis 10/2014) Neurologic Surgery: No Orthopedic Surgery: Yes (MAMIE HIP REPLACEMENT) - Suicide/Smoking/Psychosocial Hx Smoking History: Never smoked Have you smoked in the past 12 months: No Hx Alcohol Use: No Drug/Substance Use Hx: No Substance Use Type: None Hx Substance Use Treatment: No Review of Systems - Review of Systems Comments:: 12/16/17 10:41 GENERAL/CONSTITUTIONAL: No fever or chills. No weakness. HEAD, EYES, EARS, NOSE AND THROAT: No change in vision. No ear pain or discharge. No sore throat. GASTROINTESTINAL: No nausea, vomiting, diarrhea or constipation. GENITOURINARY: No dysuria, frequency, or change in urination. CARDIOVASCULAR: No chest pain or shortness of breath. RESPIRATORY: No cough, wheezing, or hemoptysis. MUSCULOSKELETAL: No joint or muscle swelling or pain. No neck or back pain. SKIN: +L leg redness NEUROLOGIC: No headache, vertigo, loss of consciousness, or change in strength/ sensation. ENDOCRINE: No increased thirst. No abnormal weight change. HEMATOLOGIC/LYMPHATIC: No anemia, easy bleeding, or history of blood clots. ALLERGIC/IMMUNOLOGIC: No hives or skin allergy. *Physical Exam - Physical Exam Comments: 12/16/17 10:41 GENERAL: Awake, alert, and fully oriented, in no acute distress HEAD: No signs of trauma EYES: PERRLA, EOMI, sclera anicteric, conjunctiva clear ENT: Auricles normal inspection, hearing grossly normal, nares patent, oropharynx clear without exudates. Moist mucosa NECK: Normal ROM, supple, no lymphadenopathy, JVD, or masses LUNGS: Breath sounds equal, clear to auscultation bilaterally. No wheezes, and no crackles HEART: Regular rate and rhythm, normal S1 and S2, no murmurs, rubs or gallops ABDOMEN: Soft, nontender, normoactive bowel sounds. No guarding, no rebound. No masses EXTREMITIES: Normal range of motion, b/l symmetric 1+ pitting edema. No clubbing or cyanosis. No cords, erythema, warmth, or tenderness NEUROLOGICAL: Normal speech, cranial nerves intact, negative pronator drift, 5/ 5 strength in all 4 extremities, normal sensation to light touch in all 4 extremities, normal cerebellar exam, normal gait, normal reflexes and tone SKIN: Warm, Dry, normal turgor, LLE with red discoloration to anterior calf and dorsum of foot. Medical Decision Making - Medical Decision Making 12/16/17 10:44 87yo M w MMP including recent admission for cellulitis of the right lower extremity presents to the emergency department with discoloration of the left lower extremity x1 week. Vitals unremarkable. Exam with discoloration to the left lower extremity but no tenderness, warmth, induration. Both calves have 1+ symmetric edema that is pitting in nature. Red discoloration likely more consistent with peripheral vascular disease, and unlikely cellulitis given the absence of fever, chills, warmth, induration, and pain. Patient seen by Dr. Burdick who states his right lower extremity is mildly more erythematous than when he saw him last and recommends doxycycline twice a day for 1 week. Patient has no other symptoms or complaints and requests discharge home. Patient advised to follow up with primary doctor in 2 days to check on the lower extremities. I discussed the physical exam findings, ancillary test results and final diagnoses with the patient. I answered all of the patient's questions. The patient was satisfied with the care received and felt comfortable with the discharge plan and treatment plan. The patient will call their primary care physician within 24 hours to arrange follow-up and will return to the Emergency Department with any new, persistent or worsening symptoms. *DC/Admit/Observation/Transfer Diagnosis at time of Disposition: Cellulitis - Discharge Dispostion Disposition: HOME Condition at time of disposition: Stable Admit: No - Referrals Referrals: Brian Polo MD [Primary Care Provider] - - Patient Instructions Printed Discharge Instructions: DI for Cellulitis -- Adult Additional Instructions: Follow up with your primary doctor in 2 days for follow up on your legs. Take the antibiotics as prescribed. Return to the emergency department if you have any new, worsening or concerning symptoms. - Post Discharge Activity - Attestations Physician Attestion: 12/16/17 10:51 I, Dr. Karen Thompson MD, attest that this document has been prepared under my direction and personally reviewed by me in its entirety. I further attest, that it accurately reflects all work, treatment, procedures and medical decision -making performed by me.
[2017-12-16 10:33] VITALS: BP 103/47; PULSE 82; TEMP 97.4; BMI 23.8
== END 2017-12-16 10:58 | disposition home or self-care (01) ==
LOC: SUPCPDRO 10:07 → FER 10:07
DX: L03.115 Cellulitis of right lower limb (principal); I50.9 Heart failure, unspecified; E78.00 Pure hypercholesterolemia, unspecified; I48.91 Unspecified atrial fibrillation; Z79.01 Long term (current) use of anticoagulants; E07.9 Disorder of thyroid, unspecified
CPT/HCPCS: 99281-25

== ENCOUNTER 2018-02-22 19:02 | Inpatient (IN) | payer OTHER ==
[2018-02-22 19:19] VITALS: BMI 23.8
[2018-02-22 19:52] LABS: HEMATOCRIT 35.9 % (35.4-49); MCH 32.5 pg (25.7-33.7); MCHC 33.5 g/dl (32.0-35.9); MEAN PLT VOLUME 8.1 fl (7.5-11.1); PLATELET COUNT 182 K/MM3 (134-434); RDW 15.8 % (11.9-15.9); WHITE BLOOD COUNT 4.2 K/mm3 (4.0-10.8)
[2018-02-22 20:18] LABS: ALBUMIN 3.7 g/dl (3.5-5.0); ALK PHOS 115 U/L (32-92); ANION GAP 12 (8-16); BLOOD UREA NITROGEN 43 mg/dl (7-18); CALCIUM 8.9 mg/dl (8.4-10.2); CHLORIDE 90 mmol/L (98-107); CO2 34 mmol/L (22-28); CREATININE 1.5 mg/dl (0.6-1.3); GLUCOSE,RANDOM 133 mg/dl (74-106); POTASSIUM 3.9 mmol/L (3.5-5.1); SGOT/AST 55 U/L (10-42); SGPT/ALT 24 U/L (10-40); SODIUM 136 mmol/L (136-145); TOT PROT 8.2 g/dl (6.4-8.3)
[2018-02-22 20:19] LABS: URINE APPEARANCE Clear; URINE BILIRUBIN Negative (NEGATIVE); URINE GLUCOSE (UA) Negative (NEGATIVE); URINE KETONE Negative (NEGATIVE); URINE LEUK ESTERASE Negative (NEGATIVE); URINE NITRITE Negative (NEGATIVE); URINE PROTEIN Trace (NEGATIVE); URINE UROBILINOGEN 0.2 (0.2-1.0)
[2018-02-22 20:20] LABS: URINE COLOR YELLOW
--- NOTE | 2018-02-22 20:26 | PDOC ---
History of Present Illness - General History Source: Patient Exam Limitations: No Limitations - History of Present Illness Initial Comments: The patient is an 87 year old male brought in by EMS who presents to the emergency department for evaluation of generalized weakness. The patient reports feeling generalized weakness around 1pm today while walking. He reports waking up without any symptoms. The patient reports chronic shortness of breath , but notes worsening shortness of breath today. The patient reports chronic bilateral leg swelling. He reports associated symptoms of dizziness, dry mouth, and decrease in urination. The patient is currently on Lasix and Metolazone. Of note, the patient was seen in November for right lower extremity cellulitis and was prescribed 2 week course of IV antibiotics. The patient denies chest pain, leg pain, changes in vision, and headache. Denies fevers, chills, nausea, vomiting, diarrhea, constipation, dysuria and hematuria. PAST MEDICAL HISTORY: CHF, skin cancer, atrial fibrillation, CVA (2010), HLD, Thyroid disease, BPH PAST SURGICAL HISTORY: Colon resection, large intestine, Thorocentesis 10/2014 FAMILY HISTORY: no pertinent history SOCIAL HISTORY: No reported MEDICATIONS: reviewed ALLERGIES: As per nursing notes ROS General: (+)Weakness. No fevers or chills, no weight loss. HEENT: No change in vision. No sore throat,. No ear pain Cardiovascular: (+)Shortness of breath. No chest pain. Respiratory: No cough, or wheezing. Gastrointestinal: no nausea, vomiting, diarrhea or constipation, No rectal bleeding Genitourinary: No dysuria, hematuria, or frequency Musculoskeletal: No joint or muscle pain or swelling Neurologic: No headache, vertigo, dizziness or loss of consciousness Psychiatric: nor depression Skin: No rashes or easy bruising Endocrine: no increased thirst or abnormal weight change Allergic: no skin or latex allergy All other systems reviewed and normal Exam: General: Well-nourished well-developed individual, no acute distress HEENT: Throat: Normal, tonsils normal, no erythema or exudate Neck: Supple, no meningeal signs, no lymphadenopathy Eyes:Pupils equal reactive and round, extraocular motion intact Chest: Nontender to palpation Cardiac: (+)Irregular rate and irregular rhythm. No murmurs rubs or gallops. Respiratory: (+)Decreased breath sounds on right lung. Abdomen: (+) Abdomen slightly distended, soft with normoactive sounds. Extremities: (+) 2+ edema bilaterally of lower extremities, right slightly greater than left. Warm, dry, no cyanosis or clubbing. Skin: No rashes Neuro: Alert and oriented x3, nonfocal exam, grossly intact, normal gait Psych: Normal mood and affect <Pedro Mike - Last Filed: 02/22/18 21:37> - General History Source: Patient Exam Limitations: No Limitations - History of Present Illness Initial Comments: 02/22/18 21:29 A portion of this note was documented by scribe services under my direction. I have reviewed the details of the note, within reason, and agree with the documentation. The case summary and management plan written by me. Medical decision making: This is an 87-year-old male who comes in complaining of one day of not feeling well patient said that he has been feeling generalized weakness and some dizziness when he tries to get up and walk around. Patient denies any chest pain. Patient said that he is having some dyspnea with exertion. Patient has a history of CHF in the past. Will obtain workup including CBC, comp, cardiac enzymes, urine and urine culture , EKG and chest x-ray 02/22/18 21:43 EKG shows bradycardia at a rate of 45 right bundle-branch block no acute ST-T wave changes when compared with old EKG other than a much slower rate no significant change. Chest x-ray shows an enlarged heart and a right-sided pleural effusion. Assessment and plan: This is an 87-year-old male with dizziness and near syncope type symptoms. Here in the emergency room patient was noted to be initially normal heart rate and now is bradycardic with a heart rate is always low 40s. Patient is asymptomatic as long as he does not try to stand up once he stands up he does become symptomatic. Patient's initial troponin was measurable at 0.05. Patient has some chronic renal insufficiency Discussed admission with the hospitalist Dr. Hernandez who has accepted him for admission to an observation telemetry bed. <Angi Strickland I - Last Filed: 02/22/18 21:49> - General Chief Complaint: Weakness Stated Complaint: WEAKNESS Time Seen by Provider: 02/22/18 19:04 Past History <Pedro Mike - Last Filed: 02/22/18 21:37> - Past Medical History Anemia: No Asthma: No Cancer: Yes (Skin) Cardiac Disorders: Yes (atrial fibrillation) CVA: Yes ([id number]-[id number]-ax weakness) COPD: No CHF: Yes Dementia: No Diabetes: No GI Disorders: No Disorders: No HTN: No Hypercholesterolemia: Yes Liver Disease: No Seizures: No Thyroid Disease: Yes - Surgical History Abdominal Surgery: Yes (Colon Resection) Appendectomy: No Cardiac Surgery: No Cholecystectomy: No GI Surgery: Yes (large intestine) Lung Surgery: Yes (Thorocentesis 10/2014) Neurologic Surgery: No Orthopedic Surgery: Yes (MAMIE HIP REPLACEMENT) - Suicide/Smoking/Psychosocial Hx Smoking History: Unknown if ever smoked Have you smoked in the past 12 months: No Information on smoking cessation initiated: No Hx Alcohol Use: No Drug/Substance Use Hx: No Substance Use Type: None Hx Substance Use Treatment: No <Angi Strickland I - Last Filed: 02/22/18 21:49> - Past Medical History Allergies/Adverse Reactions: Allergies Allergy/AdvReac Type Severity Reaction Status Date / Time No Known Allergies Allergy Verified 11/10/17 13:37 Home Medications: Ambulatory Orders Calcium Carbonate [Calcium] 500 mg PO BID tablet 11/06/14 Multivitamin [Daily Vitamin] 1 each PO DAILY tablet 11/06/14 [place]-3/Dha/Epa/Lut/Zeaxanthin [[facility] Softgel] 1 each PO 2 CAPS BID capsule 04/26/17 Ferrous Sulfate 325 mg PO DAILY 08/31/17 Metoprolol Succinate [Toprol XL -] 100 mg PO DAILY #30 tab.sr.24h 09/06/17 Acetaminophen [Tylenol .Regular Strength -] 650 mg PO Q4H PRN tablet 11/24/17 Docusate Sodium [Colace -] 100 mg PO TID capsule 11/24/17 Furosemide [Lasix -] 80 mg PO DAILY #60 tablet 11/24/17 Metolazone [Zaroxolyn -] 2.5 mg PO DAILY@0930 #30 tablet 11/24/17 Potassium Chloride [K-Dur -] 40 meq PO BID #60 tablet.er 11/24/17 Famotidine [Pepcid] 20 mg PO MOWEFR 12/16/17 Magnesium Oxide [Magnesium] 400 mg PO HS 12/16/17 Ascorbic Acid [Vitamin C -] 250 mg PO DAILY 02/22/18 L.acidoph,Paracasei, B.lactis [Probiotic] 1 each PO BID 02/22/18 *Physical Exam - Vital Signs Last Vital Signs Temp Pulse Resp BP Pulse Ox 98.6 F 64 18 98/63 100 02/22/18 19:30 02/22/18 21:02 02/22/18 21:02 02/22/18 21:02 02/22/18 21:02 <Pedro Mike - Last Filed: 02/22/18 21:37> - Vital Signs Last Vital Signs Temp Pulse Resp BP Pulse Ox 97.9 F 76 16 93/53 98 02/22/18 19:14 02/22/18 19:14 02/22/18 19:14 02/22/18 19:14 02/22/18 19:14 <Angi Strickland I - Last Filed: 02/22/18 21:49> ED Treatment Course - LABORATORY CBC & Chemistry Diagram: 02/22/18 19:30 02/22/18 19:30 - ADDITIONAL ORDERS Additional order review: Laboratory Results 02/22/18 02/22/18 02/22/18 20:10 19:30 19:30 Sodium 136 Potassium 3.9 Chloride 90 L Carbon Dioxide 34 H Anion Gap 12 BUN 43 H Creatinine 1.5 H Creat Clearance w eGFR 44.27 Random Glucose 133 H Calcium 8.9 Total Bilirubin 1.0 AST 55 H D ALT 24 Alkaline Phosphatase 115 H Creatine Kinase 107 Troponin I 0.05 D Total Protein 8.2 Albumin 3.7 D Urine Color Yellow Urine Appearance Clear Urine pH 7.0 Ur Specific [place] 1.015 Urine Protein Trace Urine Glucose (UA) Negative Urine Ketones Negative Urine Blood Negative Urine Nitrite Negative Urine Bilirubin Negative Urine Urobilinogen 0.2 Ur Leukocyte Esterase Negative 02/22/18 19:30 RBC 3.70 L MCV 97.0 H MCHC 33.5 RDW 15.8 MPV 8.1 Neutrophils % No Result Required. Lymphocytes % No Result Required. <Pedro Mike - Last Filed: 02/22/18 21:37> - LABORATORY CBC & Chemistry Diagram: 02/22/18 19:30 02/22/18 19:30 - ADDITIONAL ORDERS Additional order review: Laboratory Results 02/22/18 02/22/18 20:10 19:30 Sodium 136 Potassium 3.9 Chloride 90 L Carbon Dioxide 34 H Anion Gap 12 BUN 43 H Creatinine 1.5 H Creat Clearance w eGFR 44.27 Random Glucose 133 H Calcium 8.9 Total Bilirubin 1.0 AST 55 H D ALT 24 Alkaline Phosphatase 115 H Creatine Kinase 107 Total Protein 8.2 Albumin 3.7 D Urine Color Yellow Urine Appearance Clear Urine pH 7.0 Ur Specific [place] 1.015 Urine Protein Trace Urine Glucose (UA) Negative Urine Ketones Negative Urine Blood Negative Urine Nitrite Negative Urine Bilirubin Negative Urine Urobilinogen 0.2 Ur Leukocyte Esterase Negative 02/22/18 19:30 RBC 3.70 L MCV 97.0 H MCHC 33.5 RDW 15.8 MPV 8.1 Neutrophils % No Result Required. Lymphocytes % No Result Required. <Angi Strickland I - Last Filed: 02/22/18 21:49> *DC/Admit/Observation/Transfer - Attestations Scribe Attestion: Documentation prepared by Pedro Mike, acting as medical representative for Angi Strickland MD. <Pedro Mike - Last Filed: 02/22/18 21:37> - Discharge Dispostion Decision to Admit order: Yes <Angi Strickland I - Last Filed: 02/22/18 21:49> Diagnosis at time of Disposition: Pleural effusion, Bradycardia, Near syncope - Discharge Dispostion Condition at time of disposition: Stable - Referrals Referrals: Brian Polo MD [Primary Care Provider] -
[2018-02-22 22:53] LABS: PLATELET ESTIMATE ADEQUATE
--- NOTE | 2018-02-22 23:23 | HP ---
CHIEF COMPLAINT: Dizziness and SOB PCP: Dr. Polo Nuisance Wildlife Control Operator: Dr. Kristine Knox HISTORY OF PRESENT ILLNESS: This is a 87 y/o man with signifcant medical history of Afib (on Pradaxa), HTN, HLD, Biventricular Systolic HF, Severe TR, CVA (2010), Pleural Effusion s/p Thoracentesis (2014). Who presents to the ED with dizziness, weakness and SOB x1 day.Patient reports increased SOB on normal activity and on exertion. Patient reports having chronic bilateral LE edema with redness R>L. Patient denies CP, palpitations. Patient denies fever, chills, cough, AP, N/V/D, dysuria. ER course was notable for: (1) EKG- 45 bpm, RBBB, septal infarct, age undetermined (2) BUN 45, Cr 1.5 (3) Chest Xray- small right pleural effusion Recent Travel: None PAST MEDICAL HISTORY: See HPI PAST SURGICAL HISTORY: See HPI Social History: Smoking: Never Alcohol: None Drugs: None Lives with spouse Family History: Non-contributory Allergies No Known Allergies Allergy (Verified 11/10/17 13:37) HOME MEDICATIONS: Home Medications Medication Instructions Recorded Calcium Carbonate [Calcium] 500 mg PO BID tablet 11/06/14 Multivitamin [Daily Vitamin] 1 each PO DAILY tablet 11/06/14 [place]-3/Dha/Epa/Lut/Zeaxanthin 1 each PO 2 CAPS BID capsule 04/26/17 [[facility] Softgel] Ferrous Sulfate 325 mg PO DAILY 08/31/17 Metoprolol Succinate [Toprol XL -] 100 mg PO DAILY #30 tab.sr.24h 09/06/17 Acetaminophen [Tylenol .Regular 650 mg PO Q4H PRN tablet 11/24/17 Strength -] Docusate Sodium [Colace -] 100 mg PO TID capsule 11/24/17 Furosemide [Lasix -] 80 mg PO DAILY #60 tablet 11/24/17 Metolazone [Zaroxolyn -] 2.5 mg PO DAILY@0930 #30 tablet 11/24/17 Potassium Chloride [K-Dur -] 40 meq PO BID #60 tablet.er 11/24/17 Famotidine [Pepcid] 20 mg PO MOWEFR 12/16/17 Magnesium Oxide [Magnesium] 400 mg PO HS 12/16/17 Ascorbic Acid [Vitamin C -] 250 mg PO DAILY 02/22/18 L.acidoph,Paracasei, B.lactis 1 each PO BID 02/22/18 [Probiotic] REVIEW OF SYSTEMS CONSTITUTIONAL: generalized weakness Absent: fever, chills, diaphoresis, malaise, loss of appetite, weight change HEENT: Absent: rhinorrhea, nasal congestion, throat pain, throat swelling, difficulty swallowing, mouth swelling, ear pain, eye pain, visual changes CARDIOVASCULAR: peripheral edema Absent: chest pain, syncope, palpitations, irregular heart rate, lightheadedness RESPIRATORY: shortness of breath, dyspnea with exertion, Absent: cough, orthopnea, wheezing, stridor, hemoptysis GASTROINTESTINAL: Absent: abdominal pain, abdominal distension, nausea, vomiting, diarrhea, constipation, melena, hematochezia GENITOURINARY: Absent: dysuria, frequency, urgency, hesitancy, hematuria, flank pain, genital pain MUSCULOSKELETAL: Absent: myalgia, arthralgia, joint swelling, back pain, neck pain SKIN: Absent: rash, itching, pallor HEMATOLOGIC/IMMUNOLOGIC: Absent: easy bleeding, easy bruising, lymphadenopathy, frequent infections ENDOCRINE: Absent: unexplained weight gain, unexplained weight loss, heat intolerance, cold intolerance NEUROLOGIC: dizziness, unsteady gait Absent: headache, focal weakness or paresthesias, seizure, mental status changes , bladder or bowel incontinence PSYCHIATRIC: Absent: anxiety, depression, suicidal or homicidal ideation, hallucinations. PHYSICAL EXAMINATION Vital Signs - 24 hr 02/22/18 02/22/18 02/22/18 19:14 19:30 21:02 Temperature 97.9 F 98.6 F Pulse Rate 76 Pulse Rate [ 64 Radial] Respiratory 16 18 Rate Blood Pressure 93/53 Blood Pressure 98/63 [Arm] O2 Sat by Pulse 98 100 Oximetry (%) 02/22/18 02/22/18 21:41 22:30 Temperature Pulse Rate Pulse Rate [ 44 L 89 Radial] Respiratory 19 18 Rate Blood Pressure Blood Pressure 95/62 125/90 [Arm] O2 Sat by Pulse 97 95 Oximetry (%) GENERAL: Awake, alert, and fully oriented, in no acute distress. HEAD: Normal with no signs of trauma. EYES: Pupils equal, round and reactive to light, extraocular movements intact, sclera anicteric, conjunctiva clear. No lid lag. EARS, NOSE, THROAT: Ears normal, nares patent, oropharynx clear without exudates. Dry mucous membranes. NECK: Normal range of motion, supple without lymphadenopathy, JVD, or masses. LUNGS: Breath sounds diminished R-lobes No wheezes, and no crackles. No accessory muscle use. HEART: Irregular rate and bradycardic rhythm, normal S1 and S2 without murmur, rub or gallop. ABDOMEN: Soft, nontender, not distended, normoactive bowel sounds, no guarding, no rebound, no masses. No hepatomegaly or splenomegaly. MUSCULOSKELETAL: Normal range of motion at all joints. No bony deformities or tenderness. No CVA tenderness. UPPER EXTREMITIES: 2+ pulses, warm, well-perfused. No cyanosis. No clubbing. No peripheral edema. LOWER EXTREMITIES: 2+ pulses, warm, well-perfused. No calf tenderness. +3 R>L pitting peripheral edema. NEUROLOGICAL: Cranial nerves II-XII intact. Normal speech. Gait not observed. PSYCHIATRIC: Cooperative. Good eye contact. Appropriate mood and affect. SKIN: Warm, dry, normal turgor, no rashes. normal capillary refill. +Erythema to B/L LE, small skin tear to anterior RLE Laboratory Results - last 24 hr 02/22/18 02/22/18 02/22/18 19:30 19:30 19:30 WBC 4.2 RBC 3.70 L Hgb 12.0 Hct 35.9 MCV 97.0 H MCH 32.5 MCHC 33.5 RDW 15.8 Plt Count 182 D MPV 8.1 Neutrophils % No Result Required. Neutrophils % (Manual) 91.0 H* Band Neutrophils % 1.0 Lymphocytes % No Result Required. Lymphocytes % (Manual) 5.0 L D Monocytes % (Manual) 2 L Eosinophils % (Manual) 1.0 Platelet Estimate Adequate Sodium 136 Potassium 3.9 Chloride 90 L Carbon Dioxide 34 H Anion Gap 12 BUN 43 H Creatinine 1.5 H Creat Clearance w eGFR 44.27 Random Glucose 133 H Calcium 8.9 Total Bilirubin 1.0 AST 55 H D ALT 24 Alkaline Phosphatase 115 H Creatine Kinase 107 Troponin I 0.05 D Total Protein 8.2 Albumin 3.7 D Urine Color Urine Appearance Urine pH Ur Specific [place] Urine Protein Urine Glucose (UA) Urine Ketones Urine Blood Urine Nitrite Urine Bilirubin Urine Urobilinogen Ur Leukocyte Esterase 02/22/18 20:10 WBC RBC Hgb Hct MCV MCH MCHC RDW Plt Count MPV Neutrophils % Neutrophils % (Manual) Band Neutrophils % Lymphocytes % Lymphocytes % (Manual) Monocytes % (Manual) Eosinophils % (Manual) Platelet Estimate Sodium Potassium Chloride Carbon Dioxide Anion Gap BUN Creatinine Creat Clearance w eGFR Random Glucose Calcium Total Bilirubin AST ALT Alkaline Phosphatase Creatine Kinase Troponin I Total Protein Albumin Urine Color Yellow Urine Appearance Clear Urine pH 7.0 Ur Specific [place] 1.015 Urine Protein Trace Urine Glucose (UA) Negative Urine Ketones Negative Urine Blood Negative Urine Nitrite Negative Urine Bilirubin Negative Urine Urobilinogen 0.2 Ur Leukocyte Esterase Negative ASSESSMENT/PLAN: This is a 87 y/o man PMHx significant for HTN, HLD, Afib (on Pradaxa), Biventricular Systolic Heart Failure, Severe TR, CVA (2010), Pleural Effusion s/ p Thoracentesis. Admitted to Telemetry for Symptomatic Bradycardia, Syncope. Plan: FEN -Fluid Restriction 1L - Replete lytes prn - Low Na Diet Code Status: Full Code Dispo: Requires Inpatient Care Problem List - Problem (1) Bradycardia Assessment/Plan: - Admit to Telemetry - Likely secondary to BB - Serial Enzymes - Appreciate Cardiology consult - Pacer Pads - Echo - Carotid Doppler - Hold BB - Consider Atropine at bedside - Monitor vitals Code(s): R00.1 - BRADYCARDIA, UNSPECIFIED (2) Syncope Assessment/Plan: - Likely secondary to Bradycardia - Continue Cardiac monitoring - Serial enzymes - Carotid Doppler - Echo - Neurochecks - Fall precautions - Repeat CBC, BMP in am - Consider Neurology consult if condition worsens - Consider Head CT, if condition worsens, or change in neuro status Code(s): R55 - SYNCOPE AND COLLAPSE (3) Atrial fibrillation Assessment/Plan: - [id number] Score 5 - EKG- Afib 45bpm, RBBB, septal Infarct age undetermined - Continue Pradaxa - Appreciate Cardiology consult - Will trend Troponin's - CBC, BMP in am Code(s): I48.91 - UNSPECIFIED ATRIAL FIBRILLATION (4) Pleural effusion Assessment/Plan: - Chronic - s/p Thoracentesis - Chest Xray- reviewed - Encouraged to use Incentive Spirometer - Neb tx - Chest PT Code(s): J90 - PLEURAL EFFUSION, NOT ELSEWHERE CLASSIFIED (5) Anemia Assessment/Plan: - stable - Will transfuse if Hgb < 7.0 - Repeat CBC in am Code(s): D64.9 - ANEMIA, UNSPECIFIED Qualifiers: (6) Acute hypotension Assessment/Plan: - Likely secondary to low cardiac output - Continue cardiac monitoring - Consider IVF to maintain MAP > 60 - Fall Precautions Code(s): I95.9 - HYPOTENSION, UNSPECIFIED (7) H/O: CVA (cerebrovascular accident) Assessment/Plan: - Continue to monitor, will treat accordingly - Fall Precautions Code(s): Z86.73 - PRSNL HX OF TIA (TIA), AND CEREB INFRC W/O RESID DEFICITS (8) Benign prostate hyperplasia Assessment/Plan: - No current home med - Bladder Scan prn - UA Code(s): N40.0 - BENIGN PROSTATIC HYPERPLASIA WITHOUT LOWER URINRY TRACT SYMP (9) Hypothyroidism Assessment/Plan: -Continue Levothyroxine - TSH in am Code(s): E03.9 - HYPOTHYROIDISM, UNSPECIFIED (10) DVT prophylaxis Assessment/Plan: - TEDs - Continue Pradaxa Code(s): YII6851 - Visit type - Emergency Visit Emergency Visit: Yes ED Registration Date: 02/22/18 Care time: The patient presented to the Emergency Department on the above date and was hospitalized for further evaluation of their emergent condition. - New Patient This patient is new to me today: Yes Date on this admission: 02/22/18 - Critical Care Critical Care patient: No Hospitalist Screening - Colonoscopy Questionnaire Colonoscopy Questionnaire: Colonoscopy Questionnaire - Patient: 50 - 75 years old and never had a screening colonoscopy: Unknown History of colon or rectal polyps, or CA: Unknown History of IBD, Crohn's disease or UC: Unknown History of abdominal radiation therapy as a child: Unknown - Relative: 1 with colon or rectal CA, or polyps at age 60 or younger: Unknown Colon or rectal CA diagnosed at age 45 or younger: Unknown Multiple relatives with colon or rectal CA: Unknown - Outcome: Screening Result: Negative Screen
[2018-02-23] MEDS ORDERED: SODIUM CHLORIDE 250 ML IV STA (03:15)
--- NOTE | 2018-02-23 04:20 | HOSP ---
Subjective - Review of Symptoms Events since last encounter: Hospital Encounter Patient received alert, awake and oriented, Afib with slow ventricular rate 30' s. Patient currently symptomatic- dizziness on exertion Plan EKG-stat Vitals- stat Transfer [facility]- Telemetry Cardiovascular: Yes: Light Headedness Physical Examination Vital Signs: Vital Signs Temperature 97.7 F 02/23/18 03:18 Pulse Rate 35 L 02/23/18 03:18 Respiratory Rate 18 02/23/18 03:18 Blood Pressure 94/54 02/23/18 03:18 O2 Sat by Pulse Oximetry (%) 97 02/23/18 03:18 Constitutional: Yes: No Distress Eyes: Yes: Conjunctiva Clear, EOM Intact, PERRL HENT: Yes: WNL, Atraumatic, Normocephalic Cardiovascular: Yes: Bradycardia, S1, S2 Respiratory: Yes: Diminished, On Nasal O2, Poor Air Entry Gastrointestinal: Yes: WNL, Normal Bowel Sounds, Soft Renal/: Yes: Incontinence Breast(s): Yes: WNL Extremities: Yes: Erythema (B/L LE) Edema: Yes Edema: LLE: 2+, RLE: 3+ Peripheral Pulses WNL: Yes Wound/Incision: Yes: Other (small skin tear to anterior RLE) Neurological: Yes: WNL, Alert, Oriented ...Motor Strength: WNL Psychiatric: Yes: WNL, Alert, Oriented Labs: CBC, BMP 02/22/18 19:30 02/22/18 19:30 Laboratory Results - last 24 hr 02/22/18 02/22/18 02/22/18 19:30 19:30 19:30 WBC 4.2 RBC 3.70 L Hgb 12.0 Hct 35.9 MCV 97.0 H MCH 32.5 MCHC 33.5 RDW 15.8 Plt Count 182 D MPV 8.1 Neutrophils % No Result Required. Neutrophils % (Manual) 91.0 H* Band Neutrophils % 1.0 Lymphocytes % No Result Required. Lymphocytes % (Manual) 5.0 L D Monocytes % (Manual) 2 L Eosinophils % (Manual) 1.0 Platelet Estimate Adequate Sodium 136 Potassium 3.9 Chloride 90 L Carbon Dioxide 34 H Anion Gap 12 BUN 43 H Creatinine 1.5 H Creat Clearance w eGFR 44.27 Random Glucose 133 H Calcium 8.9 Total Bilirubin 1.0 AST 55 H D ALT 24 Alkaline Phosphatase 115 H Creatine Kinase 107 Troponin I 0.05 D Total Protein 8.2 Albumin 3.7 D Urine Color Urine Appearance Urine pH Ur Specific [place] Urine Protein Urine Glucose (UA) Urine Ketones Urine Blood Urine Nitrite Urine Bilirubin Urine Urobilinogen Ur Leukocyte Esterase 02/22/18 02/23/18 20:10 00:05 WBC RBC Hgb Hct MCV MCH MCHC RDW Plt Count MPV Neutrophils % Neutrophils % (Manual) Band Neutrophils % Lymphocytes % Lymphocytes % (Manual) Monocytes % (Manual) Eosinophils % (Manual) Platelet Estimate Sodium Potassium Chloride Carbon Dioxide Anion Gap BUN Creatinine Creat Clearance w eGFR Random Glucose Calcium Total Bilirubin AST ALT Alkaline Phosphatase Creatine Kinase Troponin I 0.05 Total Protein Albumin Urine Color Yellow Urine Appearance Clear Urine pH 7.0 Ur Specific [place] 1.015 Urine Protein Trace Urine Glucose (UA) Negative Urine Ketones Negative Urine Blood Negative Urine Nitrite Negative Urine Bilirubin Negative Urine Urobilinogen 0.2 Ur Leukocyte Esterase Negative Intake & Output 02/20/18 02/21/18 02/22/18 02/23/18 23:59 23:59 23:59 23:59 Intake Total 500 Output Total 225 425 Balance -225 75 Weight 71.2 kg 74.406 kg Critical Care Total Critical Care Time (in minutes): 40 Critical Care Statement: The care of this patient involved high complexity decision making to prevent further life threatening deterioration of the patient 's condition and/or to evaluate & treat vital organ system(s) failure or risk of failure.
[2018-02-23] MEDS: LEVOTHYROXINE NA 100 MCG TABLET (FP) PO SCH (06:28)
[2018-02-23 08:16] LABS: BASO % 0.5 % (0-2.0); EOS % 0.5 % (0-4.5); HEMATOCRIT 32.9 % (35.4-49); HEMOGLOBIN 11.5 GM/dL (11.7-16.9); LYMPH % 18.7 % (8-40); MCH 34.2 pg (25.7-33.7); MCHC 34.9 g/dl (32.0-35.9); MONO % 8.5 % (3.8-10.2); NEUT % 71.8 % (42.8-82.8); PLATELET COUNT 140 K/MM3 (134-434); RBC 3.36 M/mm3 (4.00-5.60); RDW 17.1 % (11.9-15.9); WHITE BLOOD COUNT 3.2 K/mm3 (4.0-10.0)
[2018-02-23 08:54] LABS: ANION GAP 9 (8-16); BLOOD UREA NITROGEN 46 mg/dL (7-18); CALCIUM 8.5 mg/dL (8.5-10.1); CHLORIDE 94 mmol/L (98-107); CO2 35 mmol/L (21-32); CREATININE 1.5 mg/dL (0.7-1.3); GLUCOSE,RANDOM 99 mg/dL (74-106); MAGNESIUM 2.9 mg/dL (1.8-2.4); PHOSPHOROUS 4.4 mg/dL (2.5-4.9); POTASSIUM 3.4 mmol/L (3.5-5.1); SODIUM 138 mmol/L (136-145)
[2018-02-23] MEDS ORDERED: POTASSIUM CHLORIDE TABS 20 MEQ TABLET.ER (FP) PO ONE (09:30)
--- NOTE | 2018-02-23 09:41 | PN ---
Physical Exam: SUBJECTIVE: Patient seen and examined at the bedside. Reports feeling weak, denies chest pain, has mild shortness of breath. OBJECTIVE: radiation monitor shows atrial fibrillation between 33-70s, some rhythm is difficult to analyze, EKG ordered Trops negative x 2, trending 3rd Potassium repleted Pacer Pads Vital Signs Period Temp Pulse Resp BP Sys/Servin Pulse Ox Last 24 Hr 97.6 F-98.6 F 33-89 16-19 93-133/53-90 95-100 GENERAL: Awake, alert, and fully oriented, in no acute distress. HEAD: Normal with no signs of trauma. EYES: Pupils equal, round and reactive to light, extraocular movements intact, sclera anicteric, conjunctiva clear. No lid lag. EARS, NOSE, THROAT: Ears normal, nares patent, oropharynx clear without exudates. Dry mucous membranes. NECK: Normal range of motion, supple without lymphadenopathy, JVD, or masses. LUNGS: Breath sounds diminished R-lobes No wheezes, and no crackles. No accessory muscle use. HEART: Irregular rate and bradycardic rhythm, normal S1 and S2 without murmur, rub or gallop. ABDOMEN: Soft, nontender, not distended, normoactive bowel sounds, no guarding, no rebound, no masses. No hepatomegaly or splenomegaly. MUSCULOSKELETAL: Normal range of motion at all joints. No bony deformities or tenderness. No CVA tenderness. UPPER EXTREMITIES: 2+ pulses, warm, well-perfused. No cyanosis. No clubbing. No peripheral edema. LOWER EXTREMITIES: 2+ pulses, warm, well-perfused. No calf tenderness. +3 R>L pitting peripheral edema, discolored right lower ext. NEUROLOGICAL: Cranial nerves II-XII intact. Normal speech. Gait not observed. PSYCHIATRIC: Cooperative. Good eye contact. Appropriate mood and affect. SKIN: Warm, dry, normal turgor, no rashes. normal capillary refill. +Erythema to B/L LE, small skin tear to anterior RLE. Wound cleansed with NS, non adherent dressing applied, secured with sandy. Laboratory Results - last 24 hr 02/22/18 02/22/18 02/22/18 19:30 19:30 19:30 WBC 4.2 RBC 3.70 L Hgb 12.0 Hct 35.9 MCV 97.0 H MCH 32.5 MCHC 33.5 RDW 15.8 Plt Count 182 D MPV 8.1 Neutrophils % No Result Required. Neutrophils % (Manual) 91.0 H* Band Neutrophils % 1.0 Lymphocytes % No Result Required. Lymphocytes % (Manual) 5.0 L D Monocytes % Monocytes % (Manual) 2 L Eosinophils % Eosinophils % (Manual) 1.0 Basophils % Platelet Estimate Adequate Sodium 136 Potassium 3.9 Chloride 90 L Carbon Dioxide 34 H Anion Gap 12 BUN 43 H Creatinine 1.5 H Creat Clearance w eGFR 44.27 Random Glucose 133 H Hemoglobin A1c % Calcium 8.9 Phosphorus Magnesium Total Bilirubin 1.0 AST 55 H D ALT 24 Alkaline Phosphatase 115 H Creatine Kinase 107 Troponin I 0.05 D B-Natriuretic Peptide Total Protein 8.2 Albumin 3.7 D Urine Color Urine Appearance Urine pH Ur Specific [place] Urine Protein Urine Glucose (UA) Urine Ketones Urine Blood Urine Nitrite Urine Bilirubin Urine Urobilinogen Ur Leukocyte Esterase 02/22/18 02/23/18 02/23/18 20:10 00:05 07:30 WBC 3.2 L D RBC 3.36 L Hgb 11.5 L D Hct 32.9 L D MCV 98.0 H MCH 34.2 H MCHC 34.9 RDW 17.1 H D Plt Count 140 D MPV 8.0 Neutrophils % 71.8 Neutrophils % (Manual) Band Neutrophils % Lymphocytes % 18.7 D Lymphocytes % (Manual) Monocytes % 8.5 Monocytes % (Manual) Eosinophils % 0.5 Eosinophils % (Manual) Basophils % 0.5 Platelet Estimate Sodium Potassium Chloride Carbon Dioxide Anion Gap BUN Creatinine Creat Clearance w eGFR Random Glucose Hemoglobin A1c % Calcium Phosphorus Magnesium Total Bilirubin AST ALT Alkaline Phosphatase Creatine Kinase Troponin I 0.05 B-Natriuretic Peptide Total Protein Albumin Urine Color Yellow Urine Appearance Clear Urine pH 7.0 Ur Specific [place] 1.015 Urine Protein Trace Urine Glucose (UA) Negative Urine Ketones Negative Urine Blood Negative Urine Nitrite Negative Urine Bilirubin Negative Urine Urobilinogen 0.2 Ur Leukocyte Esterase Negative 02/23/18 02/23/18 02/23/18 07:30 07:30 07:30 WBC RBC Hgb Hct MCV MCH MCHC RDW Plt Count MPV Neutrophils % Neutrophils % (Manual) Band Neutrophils % Lymphocytes % Lymphocytes % (Manual) Monocytes % Monocytes % (Manual) Eosinophils % Eosinophils % (Manual) Basophils % Platelet Estimate Sodium 138 Potassium 3.4 L D Chloride 94 L Carbon Dioxide 35 H Anion Gap 9 BUN 46 H D Creatinine 1.5 H D Creat Clearance w eGFR Random Glucose 99 Hemoglobin A1c % 5.1 D Calcium 8.5 Phosphorus 4.4 Magnesium 2.9 H D Total Bilirubin AST ALT Alkaline Phosphatase Creatine Kinase Troponin I B-Natriuretic Peptide 1609.94 H Total Protein Albumin Urine Color Urine Appearance Urine pH Ur Specific [place] Urine Protein Urine Glucose (UA) Urine Ketones Urine Blood Urine Nitrite Urine Bilirubin Urine Urobilinogen Ur Leukocyte Esterase Active Medications Generic Name Dose Route Start Last Admin Trade Name Freq PRN Reason Stop Dose Admin Atorvastatin Calcium 10 mg 02/25/18 22:00 Lipitor - PO SUTU@2200 [facility] Dabigatran 150 mg 02/23/18 10:00 Pradaxa - PO BID [facility] Levothyroxine Sodium 100 mcg 02/23/18 07:00 02/23/18 06:28 Synthroid - PO 100 mcg DAILY@0700 [facility] Administration ASSESSMENT/PLAN: Pateint is an 87 year old male with a significant past medical history of hypertensin, hyperlipidemia, Afib (on Pradaxa), Biventricular Systolic Heart Failure, Severe TR, CVA (2010), pleural effusion s/p thoracentesis. He was transferred from [place] to [place] for symptomatic bradycardia, weakness and shortness of breath. Cardiology: Symptomatic bradycardia, acute Atrial fibrillation, chronic Patient was on Metoprolol 100mg at home and presents with symptomatic bradycardia @ 30s Pacer pads in place, may need atropine if heart rate remains in the 30s but currently now in the 70s on cardiac rehabilitation specialist Monitor off beta lauren, may need to be restarted on low dose as per cardiology On Pradaxa Monitor on tele Echo ordered Monitor vitals Trend troponins Congestive Heart Failure Continue Lasix Monitor daily weights Hypotension, improving Hold off on IVF, appears volume overloaded Neuro CVA Physical therapy once heart rate improves Fall risk Syncope, likely secondary to bradycardia Continue cardiac montoring Fall precautions Mental status at baseline ID: Right wound cellulitis Doxy x 5 days as per ID Follows Dr. Burdick outpatient Pulmonary Pleural effusions s/p thoracentesis On Lasix Pulm. consult Heme: Anemia, monitor with CBC Transfuse if hmg < 8.0 Hypothyroidism On Synthroid, TSH wnl Visit type - Emergency Visit Emergency Visit: Yes ED Registration Date: 05/18/18 Care time: The patient presented to the Emergency Department on the above date and was hospitalized for further evaluation of their emergent condition. - New Patient This patient is new to me today: No - Critical Care Critical Care patient: No - Discharge Referral [facility]erred to [facility] No
[2018-02-23] MEDS ORDERED: HEPARIN NA (PORCINE) 5,000 UNITS/ML 1ML VIAL SQ SCH (10:00)
[2018-02-23] MEDS: DABIGATRAN ETEXILATE MESYLATE 150 MG CAPSULE PO SCH ×2 (10:25→21:58)
--- NOTE | 2018-02-23 11:21 | EKG ---
Test Reason : Blood Pressure : / mmHG Vent. Rate : 045 BPM Atrial Rate : 045 BPM P-R Int : 000 ms QRS Dur : 156 ms QT Int : 586 ms P-R-T Axes : 000 049 -58 degrees QTc Int : 506 ms ATRIAL FIBRILLATION WITH SLOW VENTRICULAR RESPONSE RIGHT BUNDLE BRANCH BLOCK SEPTAL INFARCT , AGE UNDETERMINED T WAVE ABNORMALITY, CONSIDER INFERIOR ISCHEMIA ABNORMAL ECG SEPTAL INFARCT IS NOW PRESENT Confirmed by NANI JORDAN MD [id number]) on 02/23/2018 11:21:30 AM Referred By: DR WILSON Confirmed By:NANI JORDAN MD
--- NOTE | 2018-02-23 11:36 | CON.CARD ---
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 No cp, sob, palps, loc, pnd, orthopnea. Chronic le edema stable. Found to have josué with hr 30s-40s. 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 Cardio/Vascular: Yes: AFIB, CHF Renal/: Yes: BPH - Alcohol/Substance Use Hx Alcohol Use: No - Smoking History Smoking history: Never smoked - Social History ADL: Independent Home Medications - Allergies Allergies/Adverse Reactions: Allergies Allergy/AdvReac Type Severity Reaction Status Date / Time No Known Allergies Allergy Verified 11/10/17 13:37 - Home Medications Home Medications Medication Instructions Recorded Calcium Carbonate [Calcium] 500 mg PO BID tablet 11/06/14 Multivitamin [Daily Vitamin] 1 each PO DAILY tablet 11/06/14 [place]-3/Dha/Epa/Lut/Zeaxanthin 1 each PO 2 CAPS BID capsule 04/26/17 [Advanced Eye Health Softgel] Ferrous Sulfate 325 mg PO DAILY 08/31/17 Metoprolol Succinate [Toprol XL -] 100 mg PO DAILY #30 tab.sr.24h 09/06/17 Acetaminophen [Tylenol .Regular 650 mg PO Q4H PRN tablet 11/24/17 Strength -] Docusate Sodium [Colace -] 100 mg PO TID capsule 11/24/17 Furosemide [Lasix -] 80 mg PO DAILY #60 tablet 11/24/17 Metolazone [Zaroxolyn -] 2.5 mg PO DAILY@0930 #30 tablet 11/24/17 Potassium Chloride [K-Dur -] 40 meq PO BID #60 tablet.er 11/24/17 Famotidine [Pepcid] 20 mg PO MOWEFR 12/16/17 Magnesium Oxide [Magnesium] 400 mg PO HS 12/16/17 Ascorbic Acid [Vitamin C -] 250 mg PO DAILY 02/22/18 L.acidoph,Paracasei, B.lactis 1 each PO BID 02/22/18 [Probiotic] Family Disease History - Family Disease History Family Disease History: Heart Disease: Father (heart disease) - Risk Factors Known Risk Factors: Yes: Age, Prior AR /Emb Stroke Vital Signs: Vital Signs Period Temp Pulse Resp BP Sys/Servin Pulse Ox Last 24 Hr 97.6 F-98.6 F 33-89 16-19 93-133/53-90 95-100 no jvd nad irreg s1s2 no mrg cta bl nl eff aao3 1+le edema bl abd nt nd pos bs no jaundice diaphoreis pos dp pt no caroitd bruits Laboratory Last Values WBC 3.2 K/mm3 (4.0-10.0) L D 02/23/18 07:30 RBC 3.36 M/mm3 (4.00-5.60) L 02/23/18 07:30 Hgb 11.5 GM/dL (11.7-16.9) L D 02/23/18 07:30 Hct 32.9 % (35.4-49) L D 02/23/18 07:30 MCV 98.0 fl (80-96) H 02/23/18 07:30 MCH 34.2 pg (25.7-33.7) H 02/23/18 07:30 MCHC 34.9 g/dl (32.0-35.9) 02/23/18 07:30 RDW 17.1 % (11.9-15.9) H D 02/23/18 07:30 Plt Count 140 K/MM3 (134-434) D 02/23/18 07:30 MPV 8.0 fl (7.5-11.1) 02/23/18 07:30 Neutrophils % 71.8 % (42.8-82.8) 02/23/18 07:30 Neutrophils % (Manual) 91.0 % (42.8-82.8) H* 02/22/18 19:30 Band Neutrophils % 1.0 % (0-10) 02/22/18 19:30 Lymphocytes % 18.7 % (8-40) D 02/23/18 07:30 Lymphocytes % (Manual) 5.0 % (8-40) L D 02/22/18 19:30 Monocytes % 8.5 % (3.8-10.2) 02/23/18 07:30 Monocytes % (Manual) 2 % (3.8-10.2) L 02/22/18 19:30 Eosinophils % 0.5 % (0-4.5) 02/23/18 07:30 Eosinophils % (Manual) 1.0 % (0-4.5) 02/22/18 19:30 Basophils % 0.5 % (0-2.0) 02/23/18 07:30 Platelet Estimate Adequate 02/22/18 19:30 Sodium 138 mmol/L (136-145) 02/23/18 07:30 Potassium 3.4 mmol/L (3.5-5.1) L D 02/23/18 07:30 Chloride 94 mmol/L (98-107) L 02/23/18 07:30 Carbon Dioxide 35 mmol/L (21-32) H 02/23/18 07:30 Anion Gap 9 (8-16) 02/23/18 07:30 BUN 46 mg/dL (7-18) H D 02/23/18 07:30 Creatinine 1.5 mg/dL (0.7-1.3) H D 02/23/18 07:30 Creat Clearance w eGFR 44.27 (>60) 02/22/18 19:30 Random Glucose 99 mg/dL (74-106) 02/23/18 07:30 Hemoglobin A1c % 5.1 % (4.8-6.0) D 02/23/18 07:30 Calcium 8.5 mg/dL (8.5-10.1) 02/23/18 07:30 Phosphorus 4.4 mg/dL (2.5-4.9) 02/23/18 07:30 Magnesium 2.8 mg/dL (1.8-2.4) H 02/23/18 07:30 Total Bilirubin 1.0 mg/dl (0.2-1.0) 02/22/18 19:30 AST 55 U/L (10-42) H D 02/22/18 19:30 ALT 24 U/L (10-40) 02/22/18 19:30 Alkaline Phosphatase 115 U/L (32-92) H 02/22/18 19:30 Creatine Kinase 107 IU/L (39-308) 02/22/18 19:30 Troponin I 0.05 ng/ml (0.00-0.05) 02/23/18 00:05 B-Natriuretic Peptide 1609.94 pg/ml (5-450) H 02/23/18 07:30 Total Protein 8.2 g/dl (6.4-8.3) 02/22/18 19:30 Albumin 3.7 g/dl (3.5-5.0) D 02/22/18 19:30 Triglycerides 44 mg/dl (35-160) 02/23/18 07:30 Cholesterol 91 mg/dl 02/23/18 07:30 Total LDL Cholesterol 33 mg/dl 02/23/18 07:30 HDL Cholesterol 49 mg/dl (29-89) 02/23/18 07:30 TSH 3.07 uIU/ml (0.358-3.74) D 02/23/18 07:30 Urine Color Yellow 02/22/18 20:10 Urine Appearance Clear 02/22/18 20:10 Urine pH 7.0 (4.5-8) 02/22/18 20:10 Ur Specific [place] 1.015 (1.005-1.025) 02/22/18 20:10 Urine Protein Trace (NEGATIVE) 02/22/18 20:10 Urine Glucose (UA) Negative (NEGATIVE) 02/22/18 20:10 Urine Ketones Negative (NEGATIVE) 02/22/18 20:10 Urine Blood Negative (NEGATIVE) 02/22/18 20:10 Urine Nitrite Negative (NEGATIVE) 02/22/18 20:10 Urine Bilirubin Negative (NEGATIVE) 02/22/18 20:10 Urine Urobilinogen 0.2 (0.2-1.0) 02/22/18 20:10 Ur Leukocyte Esterase Negative (NEGATIVE) 02/22/18 20:10 Echo 11/2014 : normal LV size, midly reduced LVF, mod enlarged RV, mod reduced RVF, severe biatrial dilation, severe TR, RVSP under-estimated, mod enlarged IVC tele: afib, vr 70s, overnight vr 30-40s at times ecg: afib, rbbb, rate controlled cxr: chronic right eff, no change 11/2017 a/p: 87 yo male with HTN, CHF, atrial fibrillation on AC with pradaxa, hypothyroid, 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 dizzy, bradycardia: -presented with symptomatic bradycardia. afib with slow vr in 30s-40s. After holding his home toprol 100 qd, his hr now improved and has no dizziness. -will monitor on tele off bb to see how hr is controlled and see if he needs lower dose resumed. -check echo -check tsh htn: -stable, monitor off bb chronic syst/diast chf: -stable -chronic right eff -chronic le edema -cont home lasix po hld: -cont home statin afib: -rate control as above -cont pradaxa
[2018-02-23] MEDS: FUROSEMIDE 40 MG TABLET (FP) PO SCH (12:24)
--- NOTE | 2018-02-23 13:45 | DS ---
Physical Exam: SUBJECTIVE: Patient seen and examined OBJECTIVE: Vital Signs Period Temp Pulse Resp BP Sys/Servin Pulse Ox Last 24 Hr 97.6 F-98.6 F 33-89 16-19 93-133/53-90 95-100 PHYSICAL EXAM GENERAL: The patient is awake, alert, and fully oriented, in no acute distress. HEAD: Normal with no signs of trauma. EYES: PERRL, extraocular movements intact, sclera anicteric, conjunctiva clear. ENT: Ears normal, nares patent, oropharynx clear without exudates, moist mucous membranes. NECK: Trachea midline, full range of motion, supple. LUNGS: Breath sounds equal, clear to auscultation bilaterally, no wheezes, no crackles, no accessory muscle use. HEART: Regular rate and rhythm, S1, S2 without murmur, rub or gallop. ABDOMEN: Soft, nontender, nondistended, normoactive bowel sounds, no guarding, no rebound, no hepatosplenomegaly, no masses. EXTREMITIES: 2+ pulses, warm, well-perfused, no edema. NEUROLOGICAL: Cranial nerves II through XII grossly intact. Normal speech, gait not observed. PSYCH: Normal mood, normal affect. SKIN: Warm, dry, normal turgor, no rashes or lesions noted. LABS Laboratory Results - last 24 hr 02/22/18 02/22/18 02/22/18 19:30 19:30 19:30 WBC 4.2 RBC 3.70 L Hgb 12.0 Hct 35.9 MCV 97.0 H MCH 32.5 MCHC 33.5 RDW 15.8 Plt Count 182 D MPV 8.1 Neutrophils % No Result Required. Neutrophils % (Manual) 91.0 H* Band Neutrophils % 1.0 Lymphocytes % No Result Required. Lymphocytes % (Manual) 5.0 L D Monocytes % Monocytes % (Manual) 2 L Eosinophils % Eosinophils % (Manual) 1.0 Basophils % Platelet Estimate Adequate Sodium 136 Potassium 3.9 Chloride 90 L Carbon Dioxide 34 H Anion Gap 12 BUN 43 H Creatinine 1.5 H Creat Clearance w eGFR 44.27 Random Glucose 133 H Hemoglobin A1c % Calcium 8.9 Phosphorus Magnesium Total Bilirubin 1.0 AST 55 H D ALT 24 Alkaline Phosphatase 115 H Creatine Kinase 107 Troponin I 0.05 D B-Natriuretic Peptide Total Protein 8.2 Albumin 3.7 D Triglycerides Cholesterol Total LDL Cholesterol HDL Cholesterol TSH Urine Color Urine Appearance Urine pH Ur Specific [place] Urine Protein Urine Glucose (UA) Urine Ketones Urine Blood Urine Nitrite Urine Bilirubin Urine Urobilinogen Ur Leukocyte Esterase 02/22/18 02/23/18 02/23/18 20:10 00:05 07:30 WBC 3.2 L D RBC 3.36 L Hgb 11.5 L D Hct 32.9 L D MCV 98.0 H MCH 34.2 H MCHC 34.9 RDW 17.1 H D Plt Count 140 D MPV 8.0 Neutrophils % 71.8 Neutrophils % (Manual) Band Neutrophils % Lymphocytes % 18.7 D Lymphocytes % (Manual) Monocytes % 8.5 Monocytes % (Manual) Eosinophils % 0.5 Eosinophils % (Manual) Basophils % 0.5 Platelet Estimate Sodium Potassium Chloride Carbon Dioxide Anion Gap BUN Creatinine Creat Clearance w eGFR Random Glucose Hemoglobin A1c % Calcium Phosphorus Magnesium Total Bilirubin AST ALT Alkaline Phosphatase Creatine Kinase Troponin I 0.05 B-Natriuretic Peptide Total Protein Albumin Triglycerides Cholesterol Total LDL Cholesterol HDL Cholesterol TSH Urine Color Yellow Urine Appearance Clear Urine pH 7.0 Ur Specific [place] 1.015 Urine Protein Trace Urine Glucose (UA) Negative Urine Ketones Negative Urine Blood Negative Urine Nitrite Negative Urine Bilirubin Negative Urine Urobilinogen 0.2 Ur Leukocyte Esterase Negative 02/23/18 02/23/18 02/23/18 07:30 07:30 07:30 WBC RBC Hgb Hct MCV MCH MCHC RDW Plt Count MPV Neutrophils % Neutrophils % (Manual) Band Neutrophils % Lymphocytes % Lymphocytes % (Manual) Monocytes % Monocytes % (Manual) Eosinophils % Eosinophils % (Manual) Basophils % Platelet Estimate Sodium 138 Potassium 3.4 L D Chloride 94 L Carbon Dioxide 35 H Anion Gap 9 BUN 46 H D Creatinine 1.5 H D Creat Clearance w eGFR Random Glucose 99 Hemoglobin A1c % Calcium 8.5 Phosphorus 4.4 Magnesium 2.9 H D Total Bilirubin AST ALT Alkaline Phosphatase Creatine Kinase Troponin I 0.05 B-Natriuretic Peptide Total Protein Albumin Triglycerides 44 Cholesterol 91 Total LDL Cholesterol 33 HDL Cholesterol 49 TSH 3.07 D Urine Color Urine Appearance Urine pH Ur Specific [place] Urine Protein Urine Glucose (UA) Urine Ketones Urine Blood Urine Nitrite Urine Bilirubin Urine Urobilinogen Ur Leukocyte Esterase 02/23/18 02/23/18 02/23/18 07:30 07:30 07:30 WBC RBC Hgb Hct MCV MCH MCHC RDW Plt Count MPV Neutrophils % Neutrophils % (Manual) Band Neutrophils % Lymphocytes % Lymphocytes % (Manual) Monocytes % Monocytes % (Manual) Eosinophils % Eosinophils % (Manual) Basophils % Platelet Estimate Sodium Potassium Chloride Carbon Dioxide Anion Gap BUN Creatinine Creat Clearance w eGFR Random Glucose Hemoglobin A1c % 5.1 D Calcium Phosphorus Magnesium 2.8 H Total Bilirubin AST ALT Alkaline Phosphatase Creatine Kinase Troponin I B-Natriuretic Peptide 1609.94 H Total Protein Albumin Triglycerides Cholesterol Total LDL Cholesterol HDL Cholesterol TSH Urine Color Urine Appearance Urine pH Ur Specific [place] Urine Protein Urine Glucose (UA) Urine Ketones Urine Blood Urine Nitrite Urine Bilirubin Urine Urobilinogen Ur Leukocyte Esterase HOSPITAL COURSE: Date of Admission:02/23/18 Date of Discharge: 02/23/18 Discharge Summary Reason For Visit: PLEURAL EFFUSION, BRADYCARDIA, PRE-SYNCOPE Current Active Problems Acute hypotension (Acute) Bradycardia (Acute) Bradycardia (Acute) DVT prophylaxis (Acute) Near syncope (Acute) Pleural effusion (Acute) Condition: Stable - Instructions Referrals: Brian Polo MD [Primary Care Provider] - - Home Medications Comprehensive Discharge Medication List: Ambulatory Orders Calcium Carbonate [Calcium] 500 mg PO BID tablet 11/06/14 Multivitamin [Daily Vitamin] 1 each PO DAILY tablet 11/06/[address] [place]-3/Dha/Epa/Lut/Zeaxanthin [Advanced [facility] Health Softgel] 1 each PO 2 CAPS BID capsule 04/26/17 Ferrous Sulfate 325 mg PO DAILY 08/31/17 Metoprolol Succinate [Toprol XL -] 100 mg PO DAILY #30 tab.sr.24h 09/06/17 Acetaminophen [Tylenol .Regular Strength -] 650 mg PO Q4H PRN tablet 11/24/17 Docusate Sodium [Colace -] 100 mg PO TID capsule 11/24/17 Furosemide [Lasix -] 80 mg PO DAILY #60 tablet 11/24/17 Metolazone [Zaroxolyn -] 2.5 mg PO DAILY@0930 #30 tablet 11/24/17 Potassium Chloride [K-Dur -] 40 meq PO BID #60 tablet.er 11/24/17 Famotidine [Pepcid] 20 mg PO MOWEFR 12/16/17 Magnesium Oxide [Magnesium] 400 mg PO HS 12/16/17 Ascorbic Acid [Vitamin C -] 250 mg PO DAILY 02/22/18 L.acidoph,Paracasei, B.lactis [Probiotic] 1 each PO BID 02/22/18
--- NOTE | 2018-02-23 14:57 | CON.ID ---
Consult Consult Specialty:: infectious diseases Reason for Consultation:: cellulittis of the legs and blisters on the rt leg - History of Present Illness Chief Complaint: bradycardia History of Present Illness: this patient known to me from previous admission when he was treated for cellulittis it seems came to the hospital for bradycardia and weakness patient also noticed that he had small blisters on his leg with some erythema and breakdown of one of the blisters patient has very compromised lower ext and tend to get infected very quickly. 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: CVA (2010, right distal MCA occlusion) Cardio/Vascular: Yes: AFIB, CHF (mild LV systolic dysunction, moderate RV systolic dysfunction), Hyperlipdemia, Pulmonary Hypertension, Other ( pericarditis 1980) Gastrointestinal: Yes: GERD, Hemorrhoids, Peptic Ulcer Disease Renal/: Yes: BPH Musculoskeletal: Yes: Osteoarthritis Endocrine: Yes: Hypothyroidism - Past Surgical History Past Surgical History: Yes: Colectomy (partial colectomy for volvulus), Hernia Repair (Left repair 10/2014), Joint Replacement (bilateral THRs 1991), Prostatectomy (1979), Vasectomy (1979) - Alcohol/Substance Use Hx Alcohol Use: No History of Substance Use: reports: None - Smoking History Smoking history: Unknown if ever smoked Have you smoked in the past 12 months: No - Social History ADL: Independent Home Medications - Allergies Allergies/Adverse Reactions: Allergies Allergy/AdvReac Type Severity Reaction Status Date / Time No Known Allergies Allergy Verified 11/10/17 13:37 - Home Medications Home Medications: Ambulatory Orders Calcium Carbonate [Calcium] 500 mg PO BID tablet 11/06/14 Multivitamin [Daily Vitamin] 1 each PO DAILY tablet 11/06/14 [place]-3/Dha/Epa/Lut/Zeaxanthin [Advanced Eye Health Softgel] 1 each PO 2 CAPS BID capsule 04/26/17 Ferrous Sulfate 325 mg PO DAILY 08/31/17 Metoprolol Succinate [Toprol XL -] 100 mg PO DAILY #30 tab.sr.24h 09/06/17 Acetaminophen [Tylenol .Regular Strength -] 650 mg PO Q4H PRN tablet 11/24/17 Docusate Sodium [Colace -] 100 mg PO TID capsule 11/24/17 Furosemide [Lasix -] 80 mg PO DAILY #60 tablet 11/24/17 Metolazone [Zaroxolyn -] 2.5 mg PO DAILY@0930 #30 tablet 11/24/17 Potassium Chloride [K-Dur -] 40 meq PO BID #60 tablet.er 11/24/17 Famotidine [Pepcid] 20 mg PO MOWEFR 12/16/17 Magnesium Oxide [Magnesium] 400 mg PO HS 12/16/17 Ascorbic Acid [Vitamin C -] 250 mg PO DAILY 02/22/18 L.acidoph,Paracasei, B.lactis [Probiotic] 1 each PO BID 02/22/18 Family Disease History - Family Disease History Family Disease History: Heart Disease: Father (heart disease 72), Other: Mother (ca pancreas 89) Review of Systems - Review of Systems Constitutional: reports: No Symptoms Eyes: reports: No Symptoms HENT: reports: No Symptoms Neck: reports: No Symptoms Cardiovascular: reports: Other (josué) Respiratory: reports: No Symptoms Gastrointestinal: reports: No Symptoms Genitourinary: reports: No Symptoms Musculoskeletal: reports: Other Integumentary: reports: Blister Neurological: reports: No Symptoms Endocrine: reports: No Symptoms Hematology/Lymphatic: reports: No Symptoms Psychiatric: reports: No Symptoms Physical Exam Vital Signs: Vital Signs Temperature 97.8 F 02/23/18 09:21 Pulse Rate 42 L 02/23/18 09:21 Respiratory Rate 17 02/23/18 13:00 Blood Pressure 98/56 02/23/18 09:21 O2 Sat by Pulse Oximetry (%) 98 02/23/18 13:00 Constitutional: Yes: No Distress, Calm Eyes: Yes: Conjunctiva Clear Neck: Yes: Supple, Trachea Midline Cardiovascular: Yes: Regular Rate and Rhythm, Bradycardia Respiratory: Yes: Regular, CTA Bilaterally Gastrointestinal: Yes: Normal Bowel Sounds, Soft Musculoskeletal: Yes: WNL Extremities: Yes: Erythema (minimal rt leg), Other Wound/Incision: Yes: Other (dressing present patient has blisters on the rt leg with one opened) Neurological: Yes: Alert, Oriented Psychiatric: Yes: Alert, Oriented Labs: CBC, BMP 02/23/18 07:30 02/23/18 07:30 Imaging - Results Chest X-ray: Report Reviewed, Image Reviewed Assessment/Plan 7 yo male with HTN, CHF, atrial fibrillation on AC with pradaxa, hypothyroid, 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 dizziness josué blisters erythema of the rt leg plan will start patient on doxy to be given for 5 days wound care rest as per the team
[2018-02-23] MEDS: DOXYCYCLINE HYCLATE 100 MG CAPSULE PO SCH (16:33)
[2018-02-23] MEDS ORDERED: ZEAXANTHIN PO SCH (22:00)
[2018-02-23] MEDS ORDERED: OMEGA PO SCH (22:00)
[2018-02-23] MEDS ORDERED: DHA PO SCH (22:00)
[2018-02-23] MEDS ORDERED: EPA PO SCH (22:00)
[2018-02-23] MEDS ORDERED: [UNRECOGNIZED DRUG - OTHER] PO SCH (22:00)
[2018-02-23] MEDS ORDERED: LUT PO SCH (22:00)
[2018-02-24] MEDS: LEVOTHYROXINE NA 100 MCG TABLET (FP) PO SCH (06:19)
[2018-02-24] MEDS ORDERED: PT OWN MED DRAWER 7, Y5N ONE (08:53)
[2018-02-24] MEDS: FUROSEMIDE 40 MG TABLET (FP) PO SCH (09:19)
[2018-02-24] MEDS: DOXYCYCLINE HYCLATE 100 MG CAPSULE PO SCH ×2 (09:20→18:51)
[2018-02-24] MEDS: DABIGATRAN ETEXILATE MESYLATE 150 MG CAPSULE PO SCH ×2 (09:20→21:08)
[2018-02-24 10:39] LABS: BASO % 0.8 % (0-2.0); EOS % 1.6 % (0-4.5); HEMATOCRIT 31.7 % (35.4-49); HEMOGLOBIN 10.8 GM/dL (11.7-16.9); LYMPH % 12.8 % (8-40); MCH 33.5 pg (25.7-33.7); MCHC 34.1 g/dl (32.0-35.9); MEAN CELL VOLUME 98.5 fl (80-96); MEAN PLT VOLUME 8.1 fl (7.5-11.1); MONO % 6.3 % (3.8-10.2); NEUT % 78.5 % (42.8-82.8); PLATELET COUNT 144 K/MM3 (134-434); RBC 3.22 M/mm3 (4.00-5.60); RDW 16.7 % (11.9-15.9); WHITE BLOOD COUNT 3.8 K/mm3 (4.0-10.0)
--- NOTE | 2018-02-24 11:32 | PN ---
Progress Note, Physician History of Present Illness: No cardiovascular complaints Does not know if he still feels weak as he has been told to not get out of bed Tele: Afib 70s. (wide) - Current Medication List Current Medications: Active Medications Atorvastatin Calcium (Lipitor -) 10 mg PO SUTU@2200 [facility] Dabigatran (Pradaxa -) 150 mg PO BID [facility] Last Admin: 02/24/18 09:20 Dose: 150 mg Doxycycline Hyclate (Vibramycin -) 100 mg PO BID@1000,1800 [facility] Last Admin: 02/24/18 09:20 Dose: 100 mg Furosemide (Lasix -) 80 mg PO DAILY [facility] Last Admin: 02/24/18 09:19 Dose: 80 mg Levothyroxine Sodium (Synthroid -) 100 mcg PO DAILY@0700 [facility] Last Admin: 02/24/18 06:19 Dose: 100 mcg Non-Formulary Medication ([place]-3/Dha/Epa/Lut/Zeaxanthin [Advanced Eye Health Softgel]) 2 each PO BID [facility] - Objective Vital Signs: Vital Signs Temperature 98 F 02/24/18 06:00 Pulse Rate 64 02/24/18 06:00 Respiratory Rate 18 02/24/18 06:00 Blood Pressure 90/41 02/24/18 06:00 O2 Sat by Pulse Oximetry (%) 97 02/24/18 05:00 Constitutional: Yes: No Distress Eyes: Yes: WNL HENT: Yes: WNL Neck: Yes: WNL Cardiovascular: Yes: Regular Rate and Rhythm, Murmur ((+) 2 systolic murmur at LLSB) Respiratory: Yes: CTA Bilaterally Gastrointestinal: Yes: Normal Bowel Sounds Extremities: Yes: WNL Edema: No Labs: CBC, BMP 02/24/18 10:20 Assessment/Plan a/p: 87 yo male with HTN, CHF, atrial fibrillation on AC with pradaxa, hypothyroid, 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 dizzy, bradycardia: -presented with symptomatic bradycardia. afib with slow vr in 30s-40s. After holding his home toprol 100 qd, his hr now improved and has no dizziness. -02/24: HR better now in 70s. Continue to monitor on tele off bb to see how hr is controlled and see if he needs lower dose resumed. -Echo with RV dysfunction, LVEF 40-45%, Mild MR and MAC, Carotid U/s: no significant obstruction. -TSH normal -Would get oob and attempt ambulation htn: -stable, monitor off bb chronic syst/diast chf: -stable -chronic right eff -chronic le edema -cont home lasix po hld: -cont home statin afib: -rate control as above -cont pradaxa
[2018-02-24 11:47] LABS: ALK PHOS 123 U/L (45-117); ANION GAP 8 (8-16); BILIRUBIN,TOTAL 0.7 mg/dL (0.2-1.0); BLOOD UREA NITROGEN 43 mg/dL (7-18); CALCIUM 9.1 mg/dL (8.5-10.1); CHLORIDE 98 mmol/L (98-107); CO2 35 mmol/L (21-32); CREATININE 1.3 mg/dL (0.7-1.3); GLUCOSE,RANDOM 135 mg/dL (74-106); MAGNESIUM 2.8 mg/dL (1.8-2.4); SGOT/AST 52 U/L (15-37); SGPT/ALT 27 U/L (12-78); SODIUM 141 mmol/L (136-145); TOT PROT 7.8 g/dl (6.4-8.2)
--- NOTE | 2018-02-24 11:51 | PN ---
Physical Exam: SUBJECTIVE: Patient seen and examined OBJECTIVE: K. 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 Knox Vital Signs Period Temp Pulse Resp BP Sys/Servin Pulse Ox Last 24 Hr 97.4 F-98.0 F 64-93 17-20 90-133/41-77 97-99 GENERAL: Awake, alert, and fully oriented, in no acute distress. HEAD: Normal with no signs of trauma. EYES: Pupils equal, round and reactive to light, extraocular movements intact, sclera anicteric, conjunctiva clear. No lid lag. EARS, NOSE, THROAT: Ears normal, nares patent, oropharynx clear without exudates. Dry mucous membranes. NECK: Normal range of motion, supple without lymphadenopathy, JVD, or masses. LUNGS: Breath sounds diminished R-lobe No wheezes, and no crackles. No accessory muscle use. right lung diminished HEART: Irregular rate in the 70s-90s ABDOMEN: Soft, nontender, not distended, normoactive bowel sounds, no guarding, no rebound, no masses. No hepatomegaly or splenomegaly. MUSCULOSKELETAL: Normal range of motion at all joints. No bony deformities or tenderness. No CVA tenderness. UPPER EXTREMITIES: 2+ pulses, warm, well-perfused. No cyanosis. No clubbing. No peripheral edema. LOWER EXTREMITIES: 2+ pulses, warm, well-perfused. No calf tenderness. +3 R>L pitting peripheral edema, discolored right lower ext. NEUROLOGICAL: Cranial nerves II-XII intact. Normal speech. Gait not observed. PSYCHIATRIC: Cooperative. Good eye contact. Appropriate mood and affect. SKIN: Warm, dry, normal turgor, no rashes. normal capillary refill. +Erythema to B/L LE, small skin tear to anterior RLE. Wound cleansed with NS, non adherent dressing applied, secured with sandy. Laboratory Results - last 24 hr 02/23/18 02/24/18 07:30 10:20 WBC 3.8 L RBC 3.22 L Hgb 10.8 L Hct 31.7 L MCV 98.5 H MCH 33.5 MCHC 34.1 RDW 16.7 H Plt Count 144 MPV 8.1 Neutrophils % 78.5 Lymphocytes % 12.8 D Monocytes % 6.3 Eosinophils % 1.6 D Basophils % 0.8 Troponin I 0.05 Active Medications Generic Name Dose Route Start Last Admin Trade Name [place] PRN Reason Stop Dose Admin Atorvastatin Calcium 10 mg 02/25/18 22:00 Lipitor - PO SUTU@2200 [facility] Dabigatran 150 mg 02/23/18 10:00 02/24/18 09:20 Pradaxa - PO 150 mg BID [facility] Administration Doxycycline Hyclate 100 mg 02/23/18 15:15 02/24/18 09:20 Vibramycin - PO 100 mg BID@1000,1800 [facility] Administration Furosemide 80 mg 02/23/18 12:00 02/24/18 09:19 Lasix - PO 80 mg DAILY [facility] Administration Levothyroxine Sodium 100 mcg 02/23/18 07:00 02/24/18 06:19 Synthroid - PO 100 mcg DAILY@0700 [facility] Administration Non-Formulary Medication 2 each 02/23/18 22:00 [place]-3/Dha/Epa/Lut/Zeaxanthin [Advanced Eye Health Softgel] PO BID [facility] ASSESSMENT/PLAN: Pateint is an 87 year old male with a significant past medical history of hypertension, hyperlipidemia, Afib (on Pradaxa), Biventricular Systolic Heart Failure, Severe TR, CVA (2010), pleural effusion s/p thoracentesis. He was transferred from [place] to [place] for symptomatic bradycardia with a heart rate of 30s (afib with slow ventricular response), weakness and shortness of breath. Cardiology: Symptomatic bradycardia, acute Atrial fibrillation with slow ventricular response, chronic Patient was on Metoprolol 100mg at home and presents with symptomatic bradycardia @ 30s heart rate now between 70s, 80s afib since Metoprolol has been discontinued Monitor off beta lauren, may need to be restarted on low dose as per cardiology On Pradaxa Monitor on tele Echo ordered Monitor vitals Trops negative Congestive Heart Failure Continue Lasix home dose Add Potassium Monitor daily weights Hypotension, improving Orthostatics IVF 250cc x 1 now, discussed with cardiology Neuro CVA Physical therapy once heart rate improves Fall risk Syncope, likely secondary to bradycardia Continue cardiac montoring Fall precautions Mental status at baseline ID: Right wound cellulitis Doxy x 5 days as per ID Follows Dr. Burdick outpatient Pulmonary Pleural effusions. history s/p thoracentesis 08/2017 with 1200cc fluid removal On Lasix daily Pulm. consulted Heme: Anemia, monitor with CBC Transfuse if hmg < 8.0 Hypothyroidism On Synthroid, TSH wnl
[2018-02-24] MEDS ORDERED: SODIUM CHLORIDE 250 ML IV STA (12:10)
[2018-02-24 12:16] LABS: POTASSIUM 2.9 mmol/L (3.5-5.1)
[2018-02-24] MEDS ORDERED: POTASSIUM CHLORIDE ORAL LIQUID 20 MEQ/15 ML PO ONE (14:15)
[2018-02-24] MEDS ORDERED: KCL 10 MEQ IVPB 10 MEQ/100 ML INFUS.BAG IVPB SCH ×2 (14:15→16:30)
[2018-02-24] MEDS: MULTIVITAMINS (DAILY MVI) TABLET (FP) PO SCH (14:17)
[2018-02-24] MEDS ORDERED: POTASSIUM CHLORIDE 10 MEQ in SODIUM CHLORIDE 100 ML IVPB ONE (14:30)
--- NOTE | 2018-02-24 14:35 | PN ---
Progress Note, Physician History of Present Illness: stable still heart rate fluctuating no other complaints being followed - Current Medication List Current Medications: Active Medications Atorvastatin Calcium (Lipitor -) 10 mg PO SUTU@2200 [facility] Dabigatran (Pradaxa -) 150 mg PO BID [facility] Last Admin: 02/24/18 09:20 Dose: 150 mg Doxycycline Hyclate (Vibramycin -) 100 mg PO BID@1000,1800 [facility] Last Admin: 02/24/18 09:20 Dose: 100 mg Furosemide (Lasix -) 80 mg PO DAILY [facility] Last Admin: 02/24/18 09:19 Dose: 80 mg Sodium Chloride (Normal Saline -) 250 mls @ 30 mls/hr IV ASDIR STA Stop: 02/24/18 20:29 Last Admin: 02/24/18 14:16 Dose: 30 mls/hr Potassium Chloride 10 meq/ (Sodium Chloride) 105 mls @ 105 mls/hr IVPB ONCE ONE Stop: 02/24/18 15:29 Levothyroxine Sodium (Synthroid -) 100 mcg PO DAILY@0700 [facility] Last Admin: 02/24/18 06:19 Dose: 100 mcg Multivitamins/Minerals/Vitamin C (Tab-A-Vit -) 1 tab PO DAILY [facility] Last Admin: 02/24/18 14:17 Dose: 1 tab Non-Formulary Medication ([place]-3/Dha/Epa/Lut/Zeaxanthin [[facility] Softgel]) 2 each PO BID [facility] Potassium Chloride (Potassium Chloride Oral Liquid) 20 meq PO BID [facility] - Objective Vital Signs: Vital Signs Temperature 97.6 F 02/24/18 10:00 Pulse Rate 69 02/24/18 10:00 Respiratory Rate 18 02/24/18 10:00 Blood Pressure 92/57 02/24/18 10:00 O2 Sat by Pulse Oximetry (%) 97 02/24/18 09:00 Constitutional: Yes: No Distress, Calm Cardiovascular: Yes: Bradycardia, Other Respiratory: Yes: Regular, CTA Bilaterally Gastrointestinal: Yes: Normal Bowel Sounds, Soft Musculoskeletal: Yes: WNL Extremities: Yes: Other Wound/Incision: Yes: Dressing Dry and Intact Neurological: Yes: Alert, Oriented Labs: CBC, BMP 02/24/18 10:20 02/24/18 10:20 Assessment/Plan 7 yo male with HTN, CHF, atrial fibrillation on AC with pradaxa, hypothyroid, 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 dizziness josué blisters erythema of the rt leg plan continue doxy wound care rest as per the team monitor heart rate rest as per the team
[2018-02-24] MEDS: DOCUSATE SODIUM 100 MG CAPSULE (FP) PO SCH (21:08)
[2018-02-24] MEDS: POTASSIUM CHLORIDE ORAL LIQUID 20 MEQ/15 ML PO SCH (21:08)
[2018-02-24] MEDS ORDERED: POTASSIUM CHLORIDE TABS 20 MEQ TABLET.ER (FP) PO SCH (22:00)
[2018-02-25] MEDS: DOCUSATE SODIUM 100 MG CAPSULE (FP) PO SCH ×3 (06:06→21:39)
[2018-02-25] MEDS: LEVOTHYROXINE NA 100 MCG TABLET (FP) PO SCH (06:07)
[2018-02-25] MEDS ORDERED: PT OWN MED DRAWER 7, Y5N ONE (10:19)
[2018-02-25] MEDS: DOXYCYCLINE HYCLATE 100 MG CAPSULE PO SCH ×2 (10:22→18:12)
[2018-02-25] MEDS: FUROSEMIDE 40 MG TABLET (FP) PO SCH (10:22)
[2018-02-25] MEDS: MULTIVITAMINS (DAILY MVI) TABLET (FP) PO SCH (10:22)
[2018-02-25] MEDS: DABIGATRAN ETEXILATE MESYLATE 150 MG CAPSULE PO SCH ×2 (10:22→21:39)
[2018-02-25] MEDS: POTASSIUM CHLORIDE ORAL LIQUID 20 MEQ/15 ML PO SCH (10:23)
[2018-02-25 10:40] LABS: BASO % 0.4 % (0-2.0); HEMOGLOBIN 11.2 GM/dL (11.7-16.9); LYMPH % 13.8 % (8-40); MCH 33.3 pg (25.7-33.7); MCHC 33.9 g/dl (32.0-35.9); MEAN CELL VOLUME 98.2 fl (80-96); MEAN PLT VOLUME 7.8 fl (7.5-11.1); MONO % 6.8 % (3.8-10.2); PLATELET COUNT 149 K/MM3 (134-434); RBC 3.36 M/mm3 (4.00-5.60); RDW 16.8 % (11.9-15.9); WHITE BLOOD COUNT 3.5 K/mm3 (4.0-10.0)
--- NOTE | 2018-02-25 10:47 | PN ---
Progress Note, Physician History of Present Illness: No CV complaints this AM Was up and ambulated yesterday with HR to 120s. Tele at rest Afib in the 70s. Very anxious to go home - Current Medication List Current Medications: Active Medications Atorvastatin Calcium (Lipitor -) 10 mg PO SUTU@2200 [facility] Dabigatran (Pradaxa -) 150 mg PO BID [facility] Last Admin: 02/25/18 10:22 Dose: 150 mg Docusate Sodium (Colace -) 100 mg PO TID [facility] Last Admin: 02/25/18 06:06 Dose: 100 mg Doxycycline Hyclate (Vibramycin -) 100 mg PO BID@1000,1800 [facility] Last Admin: 02/25/18 10:22 Dose: 100 mg Furosemide (Lasix -) 80 mg PO DAILY [facility] Last Admin: 02/25/18 10:22 Dose: 80 mg Levothyroxine Sodium (Synthroid -) 100 mcg PO DAILY@0700 [facility] Last Admin: 02/25/18 06:07 Dose: 100 mcg Multivitamins/Minerals/Vitamin C (Tab-A-Vit -) 1 tab PO DAILY [facility] Last Admin: 02/25/18 10:22 Dose: 1 tab Non-Formulary Medication ([place]-3/Dha/Epa/Lut/Zeaxanthin [[facility] Softgel]) 2 each PO BID [facility] Potassium Chloride (Potassium Chloride Oral Liquid) 20 meq PO BID [facility] Last Admin: 02/25/18 10:23 Dose: 20 meq - Objective Vital Signs: Vital Signs Temperature 98.4 F 02/25/18 10:00 Pulse Rate 83 02/25/18 10:00 Respiratory Rate 18 02/25/18 10:00 Blood Pressure 109/66 02/25/18 10:00 O2 Sat by Pulse Oximetry (%) 97 02/25/18 09:00 Constitutional: Yes: No Distress, Calm Eyes: Yes: WNL HENT: Yes: WNL Neck: Yes: WNL Cardiovascular: Yes: Pulse Irregular Respiratory: Yes: CTA Bilaterally Gastrointestinal: Yes: WNL Extremities: Yes: WNL Edema: No Assessment/Plan a/p: 87 yo male with HTN, CHF, atrial fibrillation on AC with pradaxa, hypothyroid, 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 dizzy, bradycardia: -presented with symptomatic bradycardia. afib with slow vr in 30s-40s. After holding his home toprol 100 qd, his hr now improved and has no dizziness. -02/24: HR better now in 70s. Continue to monitor on tele off bb to see how hr is controlled and see if he needs lower dose resumed. -Echo with RV dysfunction, LVEF 40-45%, Mild MR and MAC, Carotid U/s: no significant obstruction. -TSH normal -Would get oob and attempt ambulation -02/25: Will resume low dose metoprolol tartrate 12.5mg PO BID and titrate as tolerated. htn: -stable -Will resume low dose metoprolol chronic syst/diast chf: -stable -chronic right eff -chronic le edema -cont home lasix po hld: -cont home statin afib: -rate control as above -cont pradaxa
[2018-02-25 11:29] LABS: ALBUMIN 2.9 g/dl (3.4-5.0); ANION GAP 6 (8-16); BILIRUBIN,TOTAL 0.8 mg/dL (0.2-1.0); BLOOD UREA NITROGEN 34 mg/dL (7-18); CALCIUM 8.3 mg/dL (8.5-10.1); CHLORIDE 98 mmol/L (98-107); CO2 37 mmol/L (21-32); CREATININE 1.1 mg/dL (0.7-1.3); GLUCOSE,RANDOM 121 mg/dL (74-106); MAGNESIUM 2.4 mg/dL (1.8-2.4); SGOT/AST 54 U/L (15-37); SGPT/ALT 24 U/L (12-78); SODIUM 141 mmol/L (136-145); TOT PROT 7.7 g/dl (6.4-8.2)
[2018-02-25 11:30] LABS: ALK PHOS 124 U/L (45-117)
[2018-02-25] MEDS ORDERED: POTASSIUM CHLORIDE TABS 20 MEQ TABLET.ER (FP) PO ONE (11:45)
[2018-02-25] MEDS: METOPROLOL TARTRATE 25 MG TABLET (FP) PO SCH ×2 (11:48→21:38)
--- NOTE | 2018-02-25 11:58 | PN ---
Physical Exam: SUBJECTIVE: Patient seen and examined. Denies chest pain, denies shortness of breath. OBJECTIVE: Discharge once cleared by cardiology, will need set follow up appointment follow up with his fur drummer (Dr. Knox) Vital Signs Period Temp Pulse Resp BP Sys/Servin Pulse Ox Last 24 Hr 97.5 F-98.4 F 70-120 18-20 109-126/59-86 96-98 GENERAL: Awake, alert, and fully oriented, in no acute distress. HEAD: Normal with no signs of trauma. EYES: Pupils equal, round and reactive to light, extraocular movements intact, sclera anicteric, conjunctiva clear. No lid lag. EARS, NOSE, THROAT: Ears normal, nares patent, oropharynx clear without exudates. Dry mucous membranes. NECK: Normal range of motion, supple without lymphadenopathy, JVD, or masses. LUNGS: Breath sounds diminished R-lobe No wheezes, and no crackles. No accessory muscle use. right lung diminished HEART: Irregular rate and bradycardic rhythm, normal S1 and S2 without murmur, rub or gallop. ABDOMEN: Soft, nontender, not distended, normoactive bowel sounds, no guarding, no rebound, no masses. No hepatomegaly or splenomegaly. MUSCULOSKELETAL: Normal range of motion at all joints. No bony deformities or tenderness. No CVA tenderness. UPPER EXTREMITIES: 2+ pulses, warm, well-perfused. No cyanosis. No clubbing. No peripheral edema. LOWER EXTREMITIES: 2+ pulses, warm, well-perfused. No calf tenderness. +3 R>L pitting peripheral edema, discolored right lower ext. NEUROLOGICAL: Cranial nerves II-XII intact. Normal speech. Gait not observed. PSYCHIATRIC: Cooperative. Good eye contact. Appropriate mood and affect. SKIN: Warm, dry, normal turgor, no rashes. normal capillary refill. +Erythema to B/L LE, small skin tear to anterior RLE. Wound cleansed with NS, non adherent dressing applied, secured with sandy. Laboratory Results - last 24 hr 02/24/18 02/24/18 02/24/18 10:20 15:45 20:15 WBC RBC Hgb Hct MCV MCH MCHC RDW Plt Count MPV Neutrophils % Lymphocytes % Monocytes % Eosinophils % Basophils % Sodium Potassium 2.9 L* 2.7 L* 3.1 L Chloride Carbon Dioxide Anion Gap BUN Creatinine Creat Clearance w eGFR Random Glucose Calcium Magnesium Total Bilirubin AST ALT Alkaline Phosphatase Total Protein Albumin 02/25/18 02/25/18 10:00 10:00 WBC 3.5 L RBC 3.36 L Hgb 11.2 L Hct 33.0 L MCV 98.2 H MCH 33.3 MCHC 33.9 RDW 16.8 H Plt Count 149 MPV 7.8 Neutrophils % 77.0 Lymphocytes % 13.8 Monocytes % 6.8 Eosinophils % 2.0 Basophils % 0.4 Sodium 141 Potassium 3.0 L Chloride 98 Carbon Dioxide 37 H Anion Gap 6 L BUN 34 H D Creatinine 1.1 Creat Clearance w eGFR > 60 Random Glucose 121 H Calcium 8.3 L Magnesium 2.4 Total Bilirubin 0.8 AST 54 H ALT 24 Alkaline Phosphatase 124 H Total Protein 7.7 Albumin 2.9 L Active Medications Generic Name Dose Route Start Last Admin Trade Name Freq PRN Reason Stop Dose Admin Atorvastatin Calcium 10 mg 02/25/18 22:00 Lipitor - PO SUTU@2200 NEIL Dabigatran 150 mg 02/23/18 10:00 02/25/18 10:22 Pradaxa - PO 150 mg BID NEIL Administration Docusate Sodium 100 mg 02/24/18 22:00 02/25/18 06:06 Colace - PO 100 mg TID NEIL Administration Doxycycline Hyclate 100 mg 02/23/18 15:15 02/25/18 10:22 Vibramycin - PO 100 mg BID@1000,1800 NEIL Administration Furosemide 80 mg 02/23/18 12:00 02/25/18 10:22 Lasix - PO 80 mg DAILY [facility] Administration Levothyroxine Sodium 100 mcg 02/23/18 07:00 02/25/18 06:07 Synthroid - PO 100 mcg DAILY@0700 NE[facility] Administration Metoprolol Tartrate 12.5 mg 02/25/18 11:00 02/25/18 11:48 Lopressor - PO 12.5 mg BID NEIL Administration Multivitamins/Minerals/Vitamin C 1 tab 02/24/18 14:15 02/25/18 10:22 Tab-A-Vit - PO 1 tab DAILY [facility] Administration Potassium Chloride 40 meq 02/25/18 22:00 K-Dur - PO BID [facility] ASSESSMENT/PLAN: Patent is an 87 year old male with a significant past medical history of hypertension, hyperlipidemia, Afib (on Pradaxa), Biventricular Systolic Heart Failure, Severe TR, CVA (2010), pleural effusion s/p thoracentesis. He was transferred from [place] to [place] for symptomatic bradycardia with a heart rate of 30s (afib with slow ventricular response), weakness and shortness of breath. Cardiology: Symptomatic bradycardia, resolved Atrial fibrillation with slow ventricular response, chronic Patient was on Metoprolol 100mg at home and presents with symptomatic bradycardia @ 30s. Since admission, his Metoprolol has been on hold and his symptoms have since improved. He is no longer dizzy and his heart rate is now between 70s to 90s afib Started on low dose Metoprolol 12.5mg BID today, monitor response On Pradaxa Echo ordered and pending Monitor vitals Trops negative Congestive Heart Failure Continue Lasix home dose Add Potassium 40mg BID Monitor daily weights Hypotension, improving Orthostatics Neuro CVA Physical therapy once heart rate improves Fall risk Syncope, likely secondary to bradycardia Continue cardiac mentoring Fall precautions Mental status at baseline ID: Right wound cellulitis Doxy x 5 days as per ID Follows Dr. Burdick outpatient Pulmonary Pleural effusions. history s/p thoracentesis 08/2017 with 1200cc fluid removal On Lasix daily Pulm. consulted Heme: Anemia, monitor with CBC Transfuse if hmg < 8.0 Hypothyroidism On Synthroid, TSH wnl Visit type - Emergency Visit Emergency Visit: Yes ED Registration Date: 02/23/18 Care time: The patient presented to the Emergency Department on the above date and was hospitalized for further evaluation of their emergent condition. - New Patient This patient is new to me today: No - Critical Care Critical Care patient: No - Discharge Referral Referred to [facility] No
--- NOTE | 2018-02-25 12:15 | PN ---
Progress Note, Physician History of Present Illness: stable improving heart rate stable - Current Medication List Current Medications: Active Medications Atorvastatin Calcium (Lipitor -) 10 mg PO SUTU@2200 [facility] Dabigatran (Pradaxa -) 150 mg PO BID [facility] Last Admin: 02/25/18 10:22 Dose: 150 mg Docusate Sodium (Colace -) 100 mg PO TID [facility] Last Admin: 02/25/18 06:06 Dose: 100 mg Doxycycline Hyclate (Vibramycin -) 100 mg PO BID@1000,1800 [facility] Last Admin: 02/25/18 10:22 Dose: 100 mg Furosemide (Lasix -) 80 mg PO DAILY [facility] Last Admin: 02/25/18 10:22 Dose: 80 mg Levothyroxine Sodium (Synthroid -) 100 mcg PO DAILY@0700 [facility] Last Admin: 02/25/18 06:07 Dose: 100 mcg Metoprolol Tartrate (Lopressor -) 12.5 mg PO BID [facility] Last Admin: 02/25/18 11:48 Dose: 12.5 mg Multivitamins/Minerals/Vitamin C (Tab-A-Vit -) 1 tab PO DAILY [facility] Last Admin: 02/25/18 10:22 Dose: 1 tab Potassium Chloride (K-Dur -) 40 meq PO BID [facility] - Objective Vital Signs: Vital Signs Temperature 98.4 F 02/25/18 10:00 Pulse Rate 83 02/25/18 10:00 Respiratory Rate 18 02/25/18 10:00 Blood Pressure 109/66 02/25/18 10:00 O2 Sat by Pulse Oximetry (%) 97 02/25/18 09:00 Constitutional: Yes: No Distress, Calm Cardiovascular: Yes: S1, S2 Respiratory: Yes: Regular, CTA Bilaterally Gastrointestinal: Yes: Normal Bowel Sounds, Soft Musculoskeletal: Yes: WNL Extremities: Yes: Other Wound/Incision: Yes: Dressing Dry and Intact Neurological: Yes: Alert, Oriented Psychiatric: Yes: Alert, Oriented Labs: CBC, BMP 02/25/18 10:00 02/25/18 10:00 Assessment/Plan 7 yo male with HTN, CHF, atrial fibrillation on AC with pradaxa, hypothyroid, 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 dizziness josué blisters erythema of the rt leg plan continue doxy continue wound care rest as per the team and cardio
[2018-02-25] MEDS: POTASSIUM CHLORIDE TABS 20 MEQ TABLET.ER (FP) PO SCH (21:39)
[2018-02-25] MEDS: ATORVASTATIN CA 10 MG TABLET (FP) PO SCH (21:40)
[2018-02-26] MEDS: DOCUSATE SODIUM 100 MG CAPSULE (FP) PO SCH ×3 (05:57→22:00)
[2018-02-26] MEDS: LEVOTHYROXINE NA 100 MCG TABLET (FP) PO SCH (06:00)
--- NOTE | 2018-02-26 09:01 | PN ---
Physical Exam: SUBJECTIVE: Patient seen and examined at the bedside. OBJECTIVE: Dr. Knox (patient private nurse informaticist): follow up post hospital appointment made for ThrusMarch 01 10:30am. Period Temp Pulse Resp BP Sys/Servin Pulse Ox Last 24 Hr 97.7 F-98.4 F 79-93 18-20 101-153/55-75 95-97 GENERAL: Awake, alert, and fully oriented, in no acute distress. HEAD: Normal with no signs of trauma. EYES: Pupils equal, round and reactive to light, extraocular movements intact, sclera anicteric, conjunctiva clear. No lid lag. EARS, NOSE, THROAT: Ears normal, nares patent, oropharynx clear without exudates. Dry mucous membranes. NECK: Normal range of motion, supple without lymphadenopathy, JVD, or masses. LUNGS: Breath sounds diminished R-lobe No wheezes, and no crackles. No accessory muscle use. right lung diminished HEART: Irregular rate, varies from 70s to 130s ABDOMEN: Soft, nontender, not distended, normoactive bowel sounds, no guarding, no rebound, no masses. No hepatomegaly or splenomegaly. MUSCULOSKELETAL: Normal range of motion at all joints. No bony deformities or tenderness. No CVA tenderness. UPPER EXTREMITIES: 2+ pulses, warm, well-perfused. No cyanosis. No clubbing. No peripheral edema. LOWER EXTREMITIES: 2+ pulses, warm, well-perfused. No calf tenderness. +3 R>L pitting peripheral edema, discolored right lower ext. NEUROLOGICAL: Cranial nerves II-XII intact. Normal speech. Gait not observed. PSYCHIATRIC: Cooperative. Good eye contact. Appropriate mood and affect. SKIN: Warm, dry, normal turgor, no rashes. normal capillary refill. +Erythema to B/L LE, small skin tear to anterior RLE. Wound cleansed with NS, non adherent dressing applied, secured with sandy. Laboratory Results - last 24 hr 02/25/18 02/25/18 02/25/18 10:00 10:00 16:10 WBC 3.5 L RBC 3.36 L Hgb 11.2 L Hct 33.0 L MCV 98.2 H MCH 33.3 MCHC 33.9 RDW 16.8 H Plt Count 149 MPV 7.8 Neutrophils % 77.0 Lymphocytes % 13.8 Monocytes % 6.8 Eosinophils % 2.0 Basophils % 0.4 Sodium 141 Potassium 3.0 L 3.2 L Chloride 98 Carbon Dioxide 37 H Anion Gap 6 L BUN 34 H D Creatinine 1.1 Creat Clearance w eGFR > 60 Random Glucose 121 H Calcium 8.3 L Magnesium 2.4 Total Bilirubin 0.8 AST 54 H ALT 24 Alkaline Phosphatase 124 H Total Protein 7.7 Albumin 2.9 L Active Medications Generic Name Dose Route Start Last Admin Trade Name Freq PRN Reason Stop Dose Admin Atorvastatin Calcium 10 mg 02/25/18 22:00 02/25/18 21:40 Lipitor - PO 10 mg SUTU@2200 [facility] Administration Dabigatran 150 mg 02/23/18 10:00 02/25/18 21:39 Pradaxa - PO 150 mg BID [facility]IL Administration Docusate Sodium 100 mg 02/24/18 22:00 02/26/18 05:57 Colace - PO 100 mg TID [facility] Administration Doxycycline Hyclate 100 mg 02/23/18 15:15 02/25/18 18:12 Vibramycin - PO 100 mg BID@1000,1800 [facility] Administration Furosemide 80 mg 02/23/18 12:00 02/25/18 10:22 Lasix - PO 80 mg DAILY [facility]IL Administration Levothyroxine Sodium 100 mcg 02/23/18 07:00 02/26/18 06:00 Synthroid - PO 100 mcg DAILY@0700 [facility] Administration Metoprolol Tartrate 12.5 mg 02/25/18 11:00 02/25/18 21:38 Lopressor - PO 12.5 mg BID [facility] Administration Multivitamins/Minerals/Vitamin C 1 tab 02/24/18 14:15 02/25/18 10:22 Tab-A-Vit - PO 1 tab DAILY [facility] Administration Potassium Chloride 40 meq 02/25/18 22:00 02/25/18 21:39 K-Dur - PO 40 meq BID [facility] Administration ASSESSMENT/PLAN: Patent is an 87 year old male with a significant past medical history of hypertension, hyperlipidemia, Afib (on Pradaxa), Biventricular Systolic Heart Failure, Severe TR, CVA (2010), pleural effusion s/p thoracentesis of right lung 08/2017. He was transferred from [place] to [place] for symptomatic bradycardia with a heart rate of 30s (afib with slow ventricular response), weakness and shortness of breath. Cardiology: Symptomatic bradycardia, resolved Atrial fibrillation with slow ventricular response, resolved Patient was on Metoprolol 100mg at home and presents with symptomatic bradycardia @ 30s. Since admission, his Metoprolol has been on hold and his symptoms have since improved. He is no longer dizzy and his heart rate is now between 70s to 90s afib Started on low dose Metoprolol 12.5mg BID on 02/25, but still having episodes of tachycardia with ambulation, Metoprolol increased to 25mg BID today per cardiology On Pradaxa Echo ordered and reviewed Monitor vitals Trops negative Congestive Heart Failure Continue Lasix home dose which is Lasix 80mg BID and Zaroxyln 2.5mg daily Add Potassium 40mg BID Monitor daily weights Hypotension, resolved Neuro CVA, residual lower ext weakness Physical therapy Fall risk Syncope, resolved Continue cardiac mentoring Fall precautions Mental status at baseline ID: Right wound cellulitis Doxy x 5 days as per ID Follows Dr. Burdick outpatient Pulmonary Pleural effusions. history s/p thoracentesis 08/2017 with 1200cc fluid removal On Lasix, Zaroxolyn, Pulm. following Heme: Anemia, monitor with CBC Transfuse if hmg < 8.0 Hypothyroidism On Synthroid, TSH wnl Visit type - Emergency Visit Emergency Visit: Yes ED Registration Date: 02/22/18 Care time: The patient presented to the Emergency Department on the above date and was hospitalized for further evaluation of their emergent condition. - New Patient This patient is new to me today: No - Critical Care Critical Care patient: No - Discharge Referral Referred to [facility] No
[2018-02-26] MEDS: POTASSIUM CHLORIDE TABS 20 MEQ TABLET.ER (FP) PO SCH ×2 (10:18→21:58)
[2018-02-26] MEDS: DABIGATRAN ETEXILATE MESYLATE 150 MG CAPSULE PO SCH ×2 (10:18→21:58)
[2018-02-26] MEDS: MULTIVITAMINS (DAILY MVI) TABLET (FP) PO SCH (10:18)
[2018-02-26] MEDS: FUROSEMIDE 40 MG TABLET (FP) PO SCH (10:18)
[2018-02-26] MEDS: METOPROLOL TARTRATE 25 MG TABLET (FP) PO SCH ×2 (10:18→22:00)
[2018-02-26] MEDS: DOXYCYCLINE HYCLATE 100 MG CAPSULE PO SCH ×2 (10:19→17:07)
[2018-02-26 10:43] LABS: BASO % 0.5 % (0-2.0); EOS % 1.8 % (0-4.5); HEMATOCRIT 34.1 % (35.4-49); HEMOGLOBIN 11.5 GM/dL (11.7-16.9); LYMPH % 15.6 % (8-40); MCH 33.1 pg (25.7-33.7); MCHC 33.7 g/dl (32.0-35.9); MEAN CELL VOLUME 98.1 fl (80-96); MEAN PLT VOLUME 7.8 fl (7.5-11.1); MONO % 6.1 % (3.8-10.2); PLATELET COUNT 162 K/MM3 (134-434); RBC 3.48 M/mm3 (4.00-5.60); RDW 16.7 % (11.9-15.9); WHITE BLOOD COUNT 3.9 K/mm3 (4.0-10.0)
[2018-02-26 11:14] LABS: ANION GAP 5 (8-16); BLOOD UREA NITROGEN 32 mg/dL (7-18); CALCIUM 8.4 mg/dL (8.5-10.1); CHLORIDE 99 mmol/L (98-107); CO2 37 mmol/L (21-32); CREATININE 1.1 mg/dL (0.7-1.3); GLUCOSE,RANDOM 109 mg/dL (74-106); MAGNESIUM 2.3 mg/dL (1.8-2.4); POTASSIUM 3.6 mmol/L (3.5-5.1); SGOT/AST 49 U/L (15-37); SGPT/ALT 26 U/L (12-78); SODIUM 141 mmol/L (136-145)
[2018-02-26 11:15] LABS: ALK PHOS 132 U/L (45-117)
--- NOTE | 2018-02-26 12:25 | PN ---
Progress Note (short form) - Note Progress Note: PULMONARY CONSULTATION DICTATED 02/26/18 IMP ACUTE ON CHRONIC CHF SEVERE RV DYSFUNCTION PLEURAL EFFUSION CHRONIC TRANSUDATE AFIB S/P SYMPTOMATIC BRADYCARDIA ANEMIA BPH PLAN LASIX O2 NEEDED MONITOR HR MONITOR LYTES AC NO NEED FOR THORACENTESIS AT THIS TIME DR CLAROS Problem List - Problems (1) RVF (right ventricular failure) Code(s): I50.9 - HEART FAILURE, UNSPECIFIED (2) Bradycardia Code(s): R00.1 - BRADYCARDIA, UNSPECIFIED (3) Near syncope Code(s): R55 - SYNCOPE AND COLLAPSE (4) Pleural effusion Code(s): J90 - PLEURAL EFFUSION, NOT ELSEWHERE CLASSIFIED (5) Acute exacerbation of CHF (congestive heart failure) Code(s): I50.9 - HEART FAILURE, UNSPECIFIED (6) Anemia Code(s): D64.9 - ANEMIA, UNSPECIFIED Qualifiers: (7) Atrial fibrillation Code(s): I48.91 - UNSPECIFIED ATRIAL FIBRILLATION (8) Benign prostate hyperplasia Code(s): N40.0 - BENIGN PROSTATIC HYPERPLASIA WITHOUT LOWER URINRY TRACT SYMP (9) Congestive heart failure (CHF) Code(s): I50.9 - HEART FAILURE, UNSPECIFIED (10) H/O: CVA (cerebrovascular accident) Code(s): Z86.73 - PRSNL HX OF TIA (TIA), AND CEREB INFRC W/O RESID DEFICITS (11) Pleural effusion Code(s): J90 - PLEURAL EFFUSION, NOT ELSEWHERE CLASSIFIED
--- NOTE | 2018-02-26 13:18 | PN ---
Progress Note (short form) - Note Progress Note: CC: bradycardia S: lopressor 12.5 bid started yesterday. + desaturation today --> s/p lasix 40 mg IV x 1 today. no cp, palps, dizziness. sob at baseline. LE edema stable. Current Medications Atorvastatin Calcium (Lipitor -) 10 mg PO SUTU@2200 [facility] Last Admin: 02/25/18 21:40 Dose: 10 mg Dabigatran (Pradaxa -) 150 mg PO BID [facility] Last Admin: 02/26/18 10:18 Dose: 150 mg Docusate Sodium (Colace -) 100 mg PO TID [facility] Last Admin: 02/26/18 05:57 Dose: 100 mg Doxycycline Hyclate (Vibramycin -) 100 mg PO BID@1000,1800 [facility] Last Admin: 02/26/18 10:19 Dose: 100 mg Furosemide (Lasix -) 80 mg PO DAILY [facility] Last Admin: 02/26/18 10:18 Dose: 80 mg Levothyroxine Sodium (Synthroid -) 100 mcg PO DAILY@0700 [facility] Last Admin: 02/26/18 06:00 Dose: 100 mcg Metoprolol Tartrate (Lopressor -) 12.5 mg PO BID [facility] Last Admin: 02/26/18 10:18 Dose: 12.5 mg Multivitamins/Minerals/Vitamin C (Tab-A-Vit -) 1 tab PO DAILY [facility] Last Admin: 02/26/18 10:18 Dose: 1 tab Potassium Chloride (K-Dur -) 40 meq PO BID [facility] Last Admin: 02/26/18 10:18 Dose: 40 meq Vital Signs - 24 hr 02/25/18 02/25/18 02/26/18 18:00 21:00 02:00 Temperature 98.0 F 97.8 F 97.7 F Pulse Rate 85 90 93 H Respiratory 18 19 20 Rate Blood Pressure 115/70 101/63 153/75 O2 Sat by Pulse 95 Oximetry (%) 02/26/18 02/26/18 02/26/18 05:00 06:00 10:00 Temperature 97.9 F 98.0 F Pulse Rate 79 103 H Respiratory 20 20 Rate Blood Pressure 117/55 136/62 O2 Sat by Pulse 97 99 Oximetry (%) Intake & Output 02/24/18 02/25/18 02/26/18 02/27/18 07:59 07:59 07:59 07:59 Intake Total 1280 780 850 210 Output Total 9325 849 5236 100 Balance -570 205 -175 110 Weight 164 lb 163 lb 6.4 oz 164 lb 8 oz nad, calm jvd elevated with ++ v wave irreg s1s2 no mrg bibasilar dullness, nl eff aao3 trace - 1+ le edema bl, emilie wraps to LE. abd nt nd pos bs no jaundice diaphoreis pos dp pt no carotid bruits CBC, BMP 02/26/18 10:04 02/26/18 10:04 tele: AF 90's-100's with intermittent breakthrough RVR. Echo 02/2018: EF 40-45%, mod-sev rve. mod-sev dec rv fn. mod marleny. 1+ ar/mr. mod-sev TR. mod pr. Echo 11/2014 : normal LV size, midly reduced LVF, mod enlarged RV, mod reduced RVF, severe biatrial dilation, severe TR, RVSP under-estimated, mod enlarged IVC ecg: afib, rbbb, rate controlled cxr: chronic right eff, no change 11/2017 a/p: 87 yo male with HTN, CHF, atrial fibrillation on AC with pradaxa, hypothyroid, CVA 2010 with slight R LE weakness, who presents with general weakness and dizzy --> noted to be bradycardic. - home lopressor (100 mg daily), initially stopped due to symptomatic bradycardia. Subsequently --> RVR. Rates remain uncontrolled on low dose lopressor --> uptitrate lopressor to 25 bid - patient states he is on lasix 80 mg bid with metolazone daily at home, has only been on lasix daily here. Now with question of hypoxia today--> s/p lasix 40 mg iV x 1. Will uptitrate lasix back to home regimen. Clarify hypoxia, by weaning oxygen to see if he truly has new O2 requirement. Patient with known chronic rt pleural effusion, will recheck pa/lat cxr. - replace shahriar hose with emilie wraps to optimize LE edema. - otherwise cont same mgm't.
--- NOTE | 2018-02-26 13:27 | CONS ---
DATE OF CONSULTATION: 02/26/2018 REFERRING PHYSICIAN: Maria Luisa Shepard NP HISTORY: The patient is an 87-year-old white male known to me from previous hospitalization on office follow up with past medical history of congestive heart failure, atrial fibrillation maintained on Pradaxa, hypertension, history of CVA in 2010 with slight right lower extremity weakness, history of chronic pleural effusion status post thoracentesis x2, pleural fluid consistent with transudates cytology negative who is a nonsmoker admitted to [facility] on February 23 for generalized weakness and dizziness. On admission, he was noted to be bradycardic with atrial fibrillation with a slow ventricular rate in the 30s-40s. Apparently, he was holding his home metformin, and he improved in the emergency room. In the ER, he was noted to have a heart rate in the 70s. He was admitted to the telemetry unit. The patient complains of shortness of breath with exertion. He denies any chest pains or palpitations. Denies any nausea, vomiting, or diaphoresis. Denies any significant shortness of breath at rest. He has a chronic cough, which is nonproductive. He denies any fevers, weight loss, or night sweats. He denies any hemoptysis. The patient underwent an echocardiogram on current admission, which revealed a left ventricular ejection fraction mildly reduced to 40%-45%. RV was xrhzzbex-oh-udimplzq dilated, and systolic function was also cdmpqcso-yl-[id number] reduced. Also noted to have apjswgqy-tg-zejids tricuspid regurgitation. As stated before, the patient is a nonsmoker. 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 There is no history of recent travel. There is no history of DVT or PE in the past. PAST MEDICAL HISTORY: Again includes atrial fibrillation on anticoagulation, congestive heart failure, hypertension, hypothyroidism, history of CVA with right lower extremity weakness, history of BPH, pleural effusions transudate. REVIEW OF SYSTEMS: Positive for dyspnea on exertion. No shortness of breath at rest. No chest pain, no palpitations, mild orthopnea, no PND, no abdominal pain. Positive lower extremity edema. CURRENT MEDICATIONS: Include Pradaxa, Vibramycin, Lopressor, Colace, Lipitor, Lasix, , K-Dur, Synthroid. PHYSICAL EXAMINATION: General: The patient is an elderly white male well-developed, awake, alert in no acute distress. Vital Signs: He is afebrile. Blood pressure 117/55, respiratory rate 20, O2 saturation 97% on room air. HEENT: Normocephalic and atraumatic. Neck: Supple. Heart: Irregular regular with S1, S2. Chest: Clear. Abdomen: Soft. Bowel sounds positive. Extremities: Bilateral extremity edema. LABORATORIES: Previous pleural fluid from August 2017, total protein 2.6, LVH 129, cholesterol less than 50. Cytology was negative. Cultures were negative. Current WBC 3.9, hemoglobin 11.5, hematocrit 34.1 with a platelet count 162,000, INR 1.35, BUN 32, creatinine 1.1. Chest x-ray still no significant change with cardiomegaly and right pleural effusion. IMPRESSION: 1. Generalized weakness secondary to symptomatic bradycardia, currently resolved. 2. Acute on chronic dyspnea secondary to acute on chronic congestive heart failure. 3. Severe right ventricular heart failure. 4. History of atrial fibrillation on anticoagulation. 5. Pleural effusion, transudate. No significant change from previous x-ray. 6. Benign prostatic hypertrophy. 7. Anemia. PLAN: Continue Lasix. Supplemental O2 as needed. Monitor heart rate. Further workup as per Cardiology. No further thoracentesis indicated at this time since the patient's pleural effusion is not significantly changed. The patient is relatively asymptomatic at this time. TA CLAROS M.D. [id number]
[2018-02-26] MEDS ORDERED: FUROSEMIDE 40 MG/4 ML INJECTABLE VIAL IVPUSH ONE (15:12)
--- NOTE | 2018-02-26 15:57 | PN ---
Progress Note, Physician History of Present Illness: continues to be stable no events noted - Current Medication List Current Medications: Active Medications Atorvastatin Calcium (Lipitor -) 10 mg PO SUTU@2200 [facility] Last Admin: 02/25/18 21:40 Dose: 10 mg Dabigatran (Pradaxa -) 150 mg PO BID [facility] Last Admin: 02/26/18 10:18 Dose: 150 mg Docusate Sodium (Colace -) 100 mg PO TID [facility] Last Admin: 02/26/18 15:38 Dose: Not Given Doxycycline Hyclate (Vibramycin -) 100 mg PO BID@1000,1800 [facility] Last Admin: 02/26/18 10:19 Dose: 100 mg Furosemide (Lasix -) 80 mg PO BIDLASIX [facility] Levothyroxine Sodium (Synthroid -) 100 mcg PO DAILY@0700 [facility] Last Admin: 02/26/18 06:00 Dose: 100 mcg Metoprolol Tartrate (Lopressor -) 12.5 mg PO BID [facility] Last Admin: 02/26/18 10:18 Dose: 12.5 mg Multivitamins/Minerals/Vitamin C (Tab-A-Vit -) 1 tab PO DAILY [facility] Last Admin: 02/26/18 10:18 Dose: 1 tab Potassium Chloride (K-Dur -) 40 meq PO BID [facility] Last Admin: 02/26/18 10:18 Dose: 40 meq - Objective Vital Signs: Vital Signs Temperature 97.7 F 02/26/18 14:01 Pulse Rate 97 H 02/26/18 14:01 Respiratory Rate 20 02/26/18 14:01 Blood Pressure 129/74 02/26/18 14:01 O2 Sat by Pulse Oximetry (%) 94 L 02/26/18 13:32 Constitutional: Yes: No Distress, Calm Cardiovascular: Yes: S1, S2 Respiratory: Yes: Regular, CTA Bilaterally Gastrointestinal: Yes: Normal Bowel Sounds, Soft Musculoskeletal: Yes: WNL Extremities: Yes: Other Wound/Incision: Yes: Dressing Dry and Intact Neurological: Yes: Alert, Oriented Psychiatric: Yes: Alert, Oriented Labs: CBC, BMP 02/26/18 10:04 02/26/18 10:04 Assessment/Plan 7 yo male with HTN, CHF, atrial fibrillation on AC with pradaxa, hypothyroid, 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 dizziness josué blisters erythema of the rt leg plan continue doxy continue wound care rest as per the team and cardio
[2018-02-26] MEDS ORDERED: PT OWN MED DRAWER 7, Y5N ONE ×2 (16:13→18:19)
[2018-02-26] MEDS ORDERED: METOPROLOL TARTRATE 25 MG TABLET (FP) PO ONE (16:22)
--- NOTE | 2018-02-27 00:49 | EKG ---
Test Reason : Blood Pressure : / mmHG Vent. Rate : 080 BPM Atrial Rate : 053 BPM P-R Int : 000 ms QRS Dur : 166 ms QT Int : 462 ms P-R-T Axes : 000 010 -50 degrees QTc Int : 532 ms ATRIAL FIBRILLATION WITH PREMATURE VENTRICULAR OR ABERRANTLY CONDUCTED COMPLEXES RIGHT BUNDLE BRANCH BLOCK ABNORMAL ECG WHEN COMPARED WITH ECG OF 22-FEB-2018 21:21, VENT. RATE HAS INCREASED PREMATURE VENTRICULAR COMPLEXES ARE PRESENT Confirmed by ERICK MICHELE, DEBBI ([id number]) on 02/27/2018 12:49:17 AM Referred By: Confirmed By:DEBBI SUAREZ MD
--- NOTE | 2018-02-27 00:50 | EKG ---
Test Reason : Blood Pressure : / mmHG Vent. Rate : 036 BPM Atrial Rate : 045 BPM P-R Int : 000 ms QRS Dur : 160 ms QT Int : 628 ms P-R-T Axes : 000 056 -61 degrees QTc Int : 485 ms ATRIAL FIBRILLATION WITH SLOW VENTRICULAR RESPONSE RIGHT BUNDLE BRANCH BLOCK T WAVE ABNORMALITY, CONSIDER INFERIOR ISCHEMIA ABNORMAL ECG WHEN COMPARED WITH ECG OF 22-FEB-2018 21:21, VENT. RATE HAS DECREASED Confirmed by ERICK MICHELE, DEBBI ([id number]) on 02/27/2018 12:49:55 AM Referred By: Confirmed By:DEBBI SUAREZ MD
[2018-02-27] MEDS: METOLAZONE 2.5 MG TABLET (FP) PO SCH (05:31)
[2018-02-27] MEDS: FUROSEMIDE 40 MG TABLET (FP) PO SCH ×2 (06:10→14:54)
[2018-02-27] MEDS: LEVOTHYROXINE NA 100 MCG TABLET (FP) PO SCH (06:11)
[2018-02-27] MEDS: DOCUSATE SODIUM 100 MG CAPSULE (FP) PO SCH ×3 (06:11→21:38)
[2018-02-27 08:02] LABS: BASO % 0.6 % (0-2.0); HEMATOCRIT 33.7 % (35.4-49); HEMOGLOBIN 11.5 GM/dL (11.7-16.9); MCH 33.2 pg (25.7-33.7); MCHC 34.1 g/dl (32.0-35.9); MEAN CELL VOLUME 97.2 fl (80-96); MEAN PLT VOLUME 7.8 fl (7.5-11.1); MONO % 6.8 % (3.8-10.2); NEUT % 76.6 % (42.8-82.8); PLATELET COUNT 139 K/MM3 (134-434); RBC 3.47 M/mm3 (4.00-5.60); RDW 16.7 % (11.9-15.9); WHITE BLOOD COUNT 4.2 K/mm3 (4.0-10.0)
[2018-02-27 08:24] LABS: CHLORIDE 101 mmol/L (98-107); POTASSIUM 3.6 mmol/L (3.5-5.1); SODIUM 141 mmol/L (136-145)
[2018-02-27 09:22] LABS: ALBUMIN 2.9 g/dl (3.4-5.0); ALK PHOS 128 U/L (45-117); ANION GAP 7 (8-16); BLOOD UREA NITROGEN 32 mg/dL (7-18); CALCIUM 8.1 mg/dL (8.5-10.1); CO2 33 mmol/L (21-32); CREATININE 0.9 mg/dL (0.7-1.3); GLUCOSE,RANDOM 84 mg/dL (74-106); SGOT/AST 45 U/L (15-37); SGPT/ALT 24 U/L (12-78); TOT PROT 7.5 g/dl (6.4-8.2)
--- NOTE | 2018-02-27 10:28 | PN ---
Progress Note, Physician History of Present Illness: pulmonary alert,oob-chair,-sob,-cp. O2 sat 98% on ra - Current Medication List Current Medications: Active Medications Atorvastatin Calcium (Lipitor -) 10 mg PO SUTU@2200 [facility] Last Admin: 02/25/18 21:40 Dose: 10 mg Dabigatran (Pradaxa -) 150 mg PO BID [facility] Last Admin: 02/26/18 21:58 Dose: 150 mg Docusate Sodium (Colace -) 100 mg PO TID [facility] Last Admin: 02/27/18 06:11 Dose: 100 mg Doxycycline Hyclate (Vibramycin -) 100 mg PO BID@1000,1800 [facility] Last Admin: 02/26/18 17:07 Dose: 100 mg Furosemide (Lasix -) 80 mg PO BIDLASIX [facility] Last Admin: 02/27/18 06:10 Dose: 80 mg Levothyroxine Sodium (Synthroid -) 100 mcg PO DAILY@0700 [facility] Last Admin: 02/27/18 06:11 Dose: 100 mcg Metolazone (Zaroxolyn -) 2.5 mg PO DAILY@0530 [facility] Last Admin: 02/27/18 05:31 Dose: 2.5 mg Metoprolol Tartrate (Lopressor -) 25 mg PO BID [facility] Last Admin: 02/26/18 22:00 Dose: 25 mg Multivitamins/Minerals/Vitamin C (Tab-A-Vit -) 1 tab PO DAILY [facility] Last Admin: 02/26/18 10:18 Dose: 1 tab Potassium Chloride (K-Dur -) 40 meq PO BID [facility] Last Admin: 02/26/18 21:58 Dose: 40 meq - Objective Vital Signs: Vital Signs Temperature 98 F 02/27/18 05:28 Pulse Rate 93 H 02/27/18 05:28 Respiratory Rate 20 02/27/18 05:28 Blood Pressure 108/62 02/27/18 05:28 O2 Sat by Pulse Oximetry (%) 99 02/26/18 20:49 Constitutional: Yes: Well Nourished, Calm Eyes: Yes: WNL HENT: Yes: WNL Neck: Yes: WNL Cardiovascular: Yes: Pulse Irregular, S1, S2 Respiratory: Yes: Diminished Gastrointestinal: Yes: Normal Bowel Sounds, Soft Extremities: Yes: WNL Edema: No Labs: CBC, BMP 02/27/18 06:40 02/27/18 06:40 Problem List - Problems (1) RVF (right ventricular failure) Code(s): I50.9 - HEART FAILURE, UNSPECIFIED (2) Bradycardia Code(s): R00.1 - BRADYCARDIA, UNSPECIFIED (3) Near syncope Code(s): R55 - SYNCOPE AND COLLAPSE (4) Pleural effusion Code(s): J90 - PLEURAL EFFUSION, NOT ELSEWHERE CLASSIFIED (5) Acute exacerbation of CHF (congestive heart failure) Code(s): I50.9 - HEART FAILURE, UNSPECIFIED (6) Anemia Code(s): D64.9 - ANEMIA, UNSPECIFIED Qualifiers: (7) Atrial fibrillation Code(s): I48.91 - UNSPECIFIED ATRIAL FIBRILLATION (8) Benign prostate hyperplasia Code(s): N40.0 - BENIGN PROSTATIC HYPERPLASIA WITHOUT LOWER URINRY TRACT SYMP (9) Congestive heart failure (CHF) Code(s): I50.9 - HEART FAILURE, UNSPECIFIED (10) H/O: CVA (cerebrovascular accident) Code(s): Z86.73 - PRSNL HX OF TIA (TIA), AND CEREB INFRC W/O RESID DEFICITS (11) Pleural effusion Code(s): J90 - PLEURAL EFFUSION, NOT ELSEWHERE CLASSIFIED Assessment/Plan IMP ACUTE ON CHRONIC CHF SEVERE RV DYSFUNCTION PLEURAL EFFUSION CHRONIC TRANSUDATE AFIB S/P SYMPTOMATIC BRADYCARDIA ANEMIA BPH PLAN LASIX O2 NEEDED MONITOR HR MONITOR LYTES AC NO NEED FOR THORACENTESIS AT THIS TIME DR CLAROS Problem List - Problems (1) RVF (right ventricular failure) Code(s): I50.9 - HEART FAILURE, UNSPECIFIED (2) Bradycardia Code(s): R00.1 - BRADYCARDIA, UNSPECIFIED (3) Near syncope Code(s): R55 - SYNCOPE AND COLLAPSE (4) Pleural effusion Code(s): J90 - PLEURAL EFFUSION, NOT ELSEWHERE CLASSIFIED (5) Acute exacerbation of CHF (congestive heart failure) Code(s): I50.9 - HEART FAILURE, UNSPECIFIED (6) Anemia Code(s): D64.9 - ANEMIA, UNSPECIFIED Qualifiers: (7) Atrial fibrillation Code(s): I48.91 - UNSPECIFIED ATRIAL FIBRILLATION (8) Benign prostate hyperplasia Code(s): N40.0 - BENIGN PROSTATIC HYPERPLASIA WITHOUT LOWER URINRY TRACT SYMP (9) Congestive heart failure (CHF) Code(s): I50.9 - HEART FAILURE, UNSPECIFIED (10) H/O: CVA (cerebrovascular accident) Code(s): Z86.73 - PRSNL HX OF TIA (TIA), AND CEREB INFRC W/O RESID DEFICITS (11) Pleural effusion Code(s): J90 - PLEURAL EFFUSION, NOT ELSEWHERE CLASSIFIED
--- NOTE | 2018-02-27 11:07 | PN ---
Physical Exam: SUBJECTIVE: Patient seen and examined at the bedside. OBJECTIVE: Patient oxygen stable on room air, but with ambulation his oxygen drops to high 70s, low 80s Chest xray with moderate sized right pleural effusion Consulted IR for possible thoracentesis with this new desaturation Vital Signs Period Temp Pulse Resp BP Sys/Servin Pulse Ox Last 24 Hr 97.2 F-98 F 83-122 20-20 108-129/60-85 94-99 GENERAL: Awake, alert, and fully oriented, in no acute distress. HEAD: Normal with no signs of trauma. EYES: Pupils equal, round and reactive to light, extraocular movements intact, sclera anicteric, conjunctiva clear. No lid lag. EARS, NOSE, THROAT: Ears normal, nares patent, oropharynx clear without exudates. Dry mucous membranes. NECK: Normal range of motion, supple without lymphadenopathy, JVD, or masses. LUNGS: Breath sounds diminished R-lobe No wheezes, and no crackles. No accessory muscle use. right lung diminished HEART: Irregular rate, varies from 70s to 130s ABDOMEN: Soft, nontender, not distended, normoactive bowel sounds, no guarding, no rebound, no masses. No hepatomegaly or splenomegaly. MUSCULOSKELETAL: Normal range of motion at all joints. No bony deformities or tenderness. No CVA tenderness. OWER EXTREMITIES: 2+ pulses, warm, well-perfused. No calf tenderness. +3 R>L pitting peripheral edema, discolored right lower ext. NEUROLOGICAL: Normal speech. Gait not observed. PSYCHIATRIC: Cooperative. Good eye contact. Appropriate mood and affect. SKIN: Warm, dry, normal turgor, no rashes. normal capillary refill. +Erythema to B/L LE, small skin tear to anterior RLE. Wound cleansed with NS, non adherent dressing applied, secured with sandy. Laboratory Results - last 24 hr 02/26/18 02/27/18 02/27/18 10:04 06:40 06:40 WBC 4.2 RBC 3.47 L Hgb 11.5 L Hct 33.7 L MCV 97.2 H MCH 33.2 MCHC 34.1 RDW 16.7 H Plt Count 139 MPV 7.8 Neutrophils % 76.6 Lymphocytes % 14.0 Monocytes % 6.8 Eosinophils % 2.0 Basophils % 0.6 Nucleated RBC % 0 Sodium 141 141 Potassium 3.6 3.6 Chloride 99 101 Carbon Dioxide 37 H 33 H Anion Gap 5 L 7 L BUN 32 H 32 H Creatinine 1.1 0.9 Creat Clearance w eGFR > 60 > 60 Random Glucose 109 H 84 D Calcium 8.4 L 8.1 L Magnesium 2.3 2.0 Total Bilirubin 1.0 D 1.0 AST 49 H 45 H ALT 26 24 Alkaline Phosphatase 132 H 128 H Total Protein 8.0 7.5 Albumin 3.0 L 2.9 L Active Medications Generic Name Dose Route Start Last Admin Trade Name Freq PRN Reason Stop Dose Admin Atorvastatin Calcium 10 mg 02/25/18 22:00 02/25/18 21:40 Lipitor - PO 10 mg SUTU@2200 NEIL Administration Dabigatran 150 mg 02/23/18 10:00 02/26/18 21:58 Pradaxa - PO 150 mg BID NEIL Administration Docusate Sodium 100 mg 02/24/18 22:00 02/27/18 06:11 Colace - PO 100 mg TID NEIL Administration Doxycycline Hyclate 100 mg 02/23/18 15:15 02/26/18 17:07 Vibramycin - PO 100 mg BID@1000,1800 NEIL Administration Furosemide 80 mg 02/27/18 06:00 02/27/18 06:10 Lasix - PO 80 mg BIDLASIX NEIL Administration Levothyroxine Sodium 100 mcg 02/23/18 07:00 02/27/18 06:11 Synthroid - PO 100 mcg DAILY@0700 NEIL Administration Metolazone 2.5 mg 02/27/18 05:30 02/27/18 05:31 Zaroxolyn - PO 2.5 mg DAILY@0530 NEIL Administration Metoprolol Tartrate 25 mg 02/26/18 22:00 02/26/18 22:00 Lopressor - PO 25 mg BID NEIL Administration Multivitamins/Minerals/Vitamin C 1 tab 02/24/18 14:15 02/26/18 10:18 Tab-A-Vit - PO 1 tab DAILY NEIL Administration Potassium Chloride 40 meq 02/25/18 22:00 02/26/18 21:58 K-Dur - PO 40 meq BID NEIL Administration ASSESSMENT/PLAN: Patent is an 87 year old male with a significant past medical history of hypertension, hyperlipidemia, Afib (on Pradaxa), Biventricular Systolic Heart Failure, Severe TR, CVA (2010), pleural effusion s/p thoracentesis of right lung 08/2017. He was transferred from [place] to [place] for symptomatic bradycardia with a heart rate of 30s (afib with slow ventricular response), weakness and shortness of breath. On admission, his Metoprolol 100mg XL as discontinued and his bradycardia and dizziness resolved. Restarted on Metroprolol by cardiology with uptitration. Cardiology: Symptomatic bradycardia, resolved Atrial fibrillation with slow ventricular response, resolved On Metoprolol 25mg BID On Pradaxa Echo ordered and reviewed Monitor vitals Trops negative Congestive Heart Failure On Lasix 80mg BID and Zaroxyln 2.5mg daily, Potassium 40mg BID Monitor daily weights Hypotension, resolved Neuro CVA, residual lower ext weakness Physical therapy Ambulates with RW Syncope, resolved Mental status at baseline ID: Right wound cellulitis Doxy x 5 days as per ID (02/23-> 02/28) Follows Dr. Burdick outpatient Pulmonary Pleural effusions. history s/p thoracentesis 08/2017 with 1200cc fluid removal Patient with shortness of breath and low oxygen sats with ambulation IR consulted for possible thoracentesis Heme: Anemia, monitor with CBC Transfuse if hmg < 8.0 Hypothyroidism On Synthroid, TSH wnl F.E.N. fluids: tolerating PO Electrolytes: monitor Nutrition: low salt Prophy: GI: deferred DVT: Pradaxa Disposition: full code. Follow up appointment with Dr. Knox on March 01 @ 10 :30a.m. Visit type - Emergency Visit Emergency Visit: Yes ED Registration Date: 02/22/18 Care time: The patient presented to the Emergency Department on the above date and was hospitalized for further evaluation of their emergent condition. - New Patient This patient is new to me today: No - Critical Care Critical Care patient: No - Discharge Referral Referred to [facility] No
[2018-02-27] MEDS: DOXYCYCLINE HYCLATE 100 MG CAPSULE PO SCH ×2 (11:51→17:57)
[2018-02-27] MEDS: POTASSIUM CHLORIDE TABS 20 MEQ TABLET.ER (FP) PO SCH ×2 (11:52→21:38)
[2018-02-27] MEDS: DABIGATRAN ETEXILATE MESYLATE 150 MG CAPSULE PO SCH ×2 (11:52→21:38)
[2018-02-27] MEDS: METOPROLOL TARTRATE 25 MG TABLET (FP) PO SCH ×2 (11:52→21:38)
[2018-02-27] MEDS: MULTIVITAMINS (DAILY MVI) TABLET (FP) PO SCH (11:52)
--- NOTE | 2018-02-27 13:08 | PN ---
Progress Note (short form) - Note Progress Note: CC: bradycardia S: lopressor increased to 25 bid yesterday. s/p lasix 40 mg IV x 1 yesterday. PO regimen increased to 80 bid with metolazone, which patient states was his home regimen. Current Medications Atorvastatin Calcium (Lipitor -) 10 mg PO SUTU@2200 [facility] Last Admin: 02/25/18 21:40 Dose: 10 mg Dabigatran (Pradaxa -) 150 mg PO BID [facility] Last Admin: 02/27/18 11:52 Dose: 150 mg Docusate Sodium (Colace -) 100 mg PO TID [facility] Last Admin: 02/27/18 06:11 Dose: 100 mg Doxycycline Hyclate (Vibramycin -) 100 mg PO BID@1000,1800 [facility] Last Admin: 02/27/18 11:51 Dose: 100 mg Furosemide (Lasix -) 80 mg PO BIDLASIX [facility] Last Admin: 02/27/18 06:10 Dose: 80 mg Levothyroxine Sodium (Synthroid -) 100 mcg PO DAILY@0700 [facility] Last Admin: 02/27/18 06:11 Dose: 100 mcg Metolazone (Zaroxolyn -) 2.5 mg PO DAILY@0530 [facility] Last Admin: 02/27/18 05:31 Dose: 2.5 mg Metoprolol Tartrate (Lopressor -) 25 mg PO BID [facility] Last Admin: 02/27/18 11:52 Dose: 25 mg Multivitamins/Minerals/Vitamin C (Tab-A-Vit -) 1 tab PO DAILY [facility] Last Admin: 02/27/18 11:52 Dose: 1 tab Potassium Chloride (K-Dur -) 40 meq PO BID [facility] Last Admin: 02/27/18 11:52 Dose: 40 meq Vital Signs - 24 hr 02/26/18 02/26/18 02/26/18 13:32 14:01 17:00 Temperature 97.7 F 97.2 F L Pulse Rate 108 H 97 H 122 H Respiratory 20 20 Rate Blood Pressure 129/74 118/85 O2 Sat by Pulse 94 L Oximetry (%) 02/26/18 02/26/18 02/27/18 20:49 21:53 02:00 Temperature 98 F 97.6 F Pulse Rate 85 83 Respiratory 20 20 Rate Blood Pressure 126/60 115/76 O2 Sat by Pulse 99 Oximetry (%) 02/27/18 05:28 Temperature 98 F Pulse Rate 93 H Respiratory 20 Rate Blood Pressure 108/62 O2 Sat by Pulse Oximetry (%) Intake & Output 02/25/18 02/26/18 02/27/18 02/28/18 07:59 07:59 07:59 07:59 Intake Total 780 850 730 300 Output Total 575 4537 759 5247 Balance 205 -175 -220 -700 Weight 163 lb 6.4 oz 164 lb 8 oz 166 lb 9.6 oz nad, calm jvd elevated with ++ v wave irreg s1s2 no mrg bibasilar dullness, nl eff aao3 trace - 1+ le edema bl, emilie wraps to LE. abd nt nd pos bs no jaundice diaphoreis pos dp pt no carotid bruits CBC, BMP 02/27/18 06:40 02/27/18 06:40 tele: AF 90's-100's with intermittent breakthrough RVR. Echo 02/2018: EF 40-45%, mod-sev rve. mod-sev dec rv fn. mod marleny. 1+ ar/mr. mod-sev TR. mod pr. Echo 11/2014 : normal LV size, midly reduced LVF, mod enlarged RV, mod reduced RVF, severe biatrial dilation, severe TR, RVSP under-estimated, mod enlarged IVC ecg: afib, rbbb, rate controlled cxr: chronic right eff, no change 11/2017 repeat cxr 02/26: moderate right pleural effusion. a/p: 87 yo male with HTN, CHF, atrial fibrillation on AC with pradaxa, hypothyroid, CVA 2010 with slight R LE weakness, who presents with general weakness and dizzy --> noted to be bradycardic. - replace shahriar hose with emilie wraps to optimize LE edema. - otherwise cont same mgm't. dizzy, bradycardia: -presented with symptomatic bradycardia. afib with slow vr in 30s-40s. After holding his home toprol 100 qd, his hr now improved and has no dizziness. -02/24: HR better now in 70s. Continue to monitor on tele off bb to see how hr is controlled and see if he needs lower dose resumed. -Echo with RV dysfunction, LVEF 40-45%, Mild MR and MAC, Carotid U/s: no significant obstruction. -TSH normal -Would get oob and attempt ambulation -02/25: Will resume low dose metoprolol tartrate 12.5mg PO BID and titrate as tolerated. - 02/26 home lopressor (100 mg daily), initially stopped due to symptomatic bradycardia. Subsequently --> RVR. Rates remain uncontrolled on low dose lopressor --> uptitrated lopressor to 25 bid - 02/27 rates improved today on current lopressor dose. no recurrence of bradycardia/Slow ventricular rate, con't htn: -stable, on current meds. 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 -stable -chronic right eff -chronic le edema - 02/26 patient states he is on lasix 80 mg bid with metolazone daily at home, has only been on lasix daily here. Now with question of hypoxia today--> s/p lasix 40 mg iV x 1. Will uptitrate lasix back to home regimen. Clarify hypoxia, by weaning oxygen to see if he truly has new O2 requirement. Patient with known chronic rt pleural effusion, will recheck pa/lat cxr. - 02/27: O2 weaned, but patient with + desaturation on ambulation. has plan for chest ct to reassess size of right pleural effusion. Po lasix regimen increased to home regimen today (80 mg po bid with 2.5 of metolazone). Early this afternoon still on ~ 500 cc net negative. Will give extra dose of 40 mg IV lasix x 1. Monitor for worsening Cr and worsening hypokalemia. Patient still with low K on standing kcl 40 bid. hld: -cont home statin afib: -rate control as above -cont pradaxa
--- NOTE | 2018-02-27 15:12 | PN ---
Progress Note, Physician History of Present Illness: stable no new issues no complaints wants to go home plan for ct scan to see pleural effusion - Current Medication List Current Medications: Active Medications Atorvastatin Calcium (Lipitor -) 10 mg PO SUTU@2200 [facility] Last Admin: 02/25/18 21:40 Dose: 10 mg Dabigatran (Pradaxa -) 150 mg PO BID [facility] Last Admin: 02/27/18 11:52 Dose: 150 mg Docusate Sodium (Colace -) 100 mg PO TID [facility] Last Admin: 02/27/18 14:54 Dose: 100 mg Doxycycline Hyclate (Vibramycin -) 100 mg PO BID@1000,1800 [facility] Last Admin: 02/27/18 11:51 Dose: 100 mg Furosemide (Lasix -) 80 mg PO BIDLASIX [facility] Last Admin: 02/27/18 14:54 Dose: 80 mg Levothyroxine Sodium (Synthroid -) 100 mcg PO DAILY@0700 [facility] Last Admin: 02/27/18 06:11 Dose: 100 mcg Metolazone (Zaroxolyn -) 2.5 mg PO DAILY@0530 [facility] Last Admin: 02/27/18 05:31 Dose: 2.5 mg Metoprolol Tartrate (Lopressor -) 25 mg PO BID [facility] Last Admin: 02/27/18 11:52 Dose: 25 mg Multivitamins/Minerals/Vitamin C (Tab-A-Vit -) 1 tab PO DAILY [facility] Last Admin: 02/27/18 11:52 Dose: 1 tab Potassium Chloride (K-Dur -) 40 meq PO BID [facility] Last Admin: 02/27/18 11:52 Dose: 40 meq - Objective Vital Signs: Vital Signs Temperature 98 F 02/27/18 05:28 Pulse Rate 93 H 02/27/18 05:28 Respiratory Rate 20 02/27/18 05:28 Blood Pressure 108/62 02/27/18 05:28 O2 Sat by Pulse Oximetry (%) 99 02/26/18 20:49 Constitutional: Yes: No Distress, Calm Cardiovascular: Yes: Regular Rate and Rhythm Respiratory: Yes: Regular, Poor Air Entry (at bases) Gastrointestinal: Yes: Normal Bowel Sounds, Soft Musculoskeletal: Yes: WNL Extremities: Yes: Other Integumentary: Yes: Skin Tear, Other Wound/Incision: Yes: Dressing Dry and Intact Neurological: Yes: Alert, Oriented Psychiatric: Yes: Alert, Oriented Labs: CBC, BMP 02/27/18 06:40 02/27/18 06:40 Assessment/Plan 7 yo male with HTN, CHF, atrial fibrillation on AC with pradaxa, hypothyroid, 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 dizziness josué blisters erythema of the rt leg plan continue doxy wound care rest as per the team await for ct scan and the results
[2018-02-27] MEDS ORDERED: FUROSEMIDE 40 MG/4 ML INJECTABLE VIAL IVPUSH ONE (17:11)
[2018-02-27] MEDS: ATORVASTATIN CA 10 MG TABLET (FP) PO SCH (21:40)
[2018-02-28] MEDS: METOLAZONE 2.5 MG TABLET (FP) PO SCH (06:10)
[2018-02-28] MEDS: FUROSEMIDE 40 MG TABLET (FP) PO SCH ×2 (06:51→14:40)
[2018-02-28] MEDS: DOCUSATE SODIUM 100 MG CAPSULE (FP) PO SCH ×2 (06:51→18:30)
[2018-02-28] MEDS: LEVOTHYROXINE NA 100 MCG TABLET (FP) PO SCH (06:52)
--- NOTE | 2018-02-28 10:16 | PN ---
Progress Note, Physician History of Present Illness: pulmonary alert,oob-chair,comfortable at rest,+valle with O2 desaturation - Current Medication List Current Medications: Active Medications Atorvastatin Calcium (Lipitor -) 10 mg PO SUTU@2200 [facility] Last Admin: 02/27/18 21:40 Dose: 10 mg Dabigatran (Pradaxa -) 150 mg PO BID [facility] Last Admin: 02/27/18 21:38 Dose: 150 mg Docusate Sodium (Colace -) 100 mg PO TID [facility] Last Admin: 02/28/18 06:51 Dose: 100 mg Doxycycline Hyclate (Vibramycin -) 100 mg PO BID@1000,1800 [facility] Last Admin: 02/27/18 17:57 Dose: 100 mg Furosemide (Lasix -) 80 mg PO BIDLASIX [facility] Last Admin: 02/28/18 06:51 Dose: 80 mg Levothyroxine Sodium (Synthroid -) 100 mcg PO DAILY@0700 [facility] Last Admin: 02/28/18 06:52 Dose: 100 mcg Metolazone (Zaroxolyn -) 2.5 mg PO DAILY@0530 [facility] Last Admin: 02/28/18 06:10 Dose: 2.5 mg Metoprolol Tartrate (Lopressor -) 25 mg PO BID [facility] Last Admin: 02/27/18 21:38 Dose: 25 mg Multivitamins/Minerals/Vitamin C (Tab-A-Vit -) 1 tab PO DAILY [facility] Last Admin: 02/27/18 11:52 Dose: 1 tab Potassium Chloride (K-Dur -) 40 meq PO BID [facility] Last Admin: 02/27/18 21:38 Dose: 40 meq - Objective Vital Signs: Vital Signs Temperature 97.8 F 02/28/18 06:00 Pulse Rate 81 02/28/18 06:00 Respiratory Rate 20 02/28/18 06:00 Blood Pressure 111/64 02/28/18 06:00 O2 Sat by Pulse Oximetry (%) 100 02/27/18 21:00 Constitutional: Yes: Well Nourished, Calm Eyes: Yes: WNL HENT: Yes: WNL Neck: Yes: WNL Cardiovascular: Yes: Pulse Irregular, S1, S2 Respiratory: Yes: Diminished Gastrointestinal: Yes: Normal Bowel Sounds, Soft Extremities: Yes: WNL Edema: Yes Labs: CBC, BMP - ....Imaging Cat Scan: Image Reviewed (r pleural effusion) Problem List - Problems (1) RVF (right ventricular failure) Code(s): I50.9 - HEART FAILURE, UNSPECIFIED (2) Bradycardia Code(s): R00.1 - BRADYCARDIA, UNSPECIFIED (3) Near syncope Code(s): R55 - SYNCOPE AND COLLAPSE (4) Pleural effusion Code(s): J90 - PLEURAL EFFUSION, NOT ELSEWHERE CLASSIFIED (5) Acute exacerbation of CHF (congestive heart failure) Code(s): I50.9 - HEART FAILURE, UNSPECIFIED (6) Anemia Code(s): D64.9 - ANEMIA, UNSPECIFIED Qualifiers: (7) Atrial fibrillation Code(s): I48.91 - UNSPECIFIED ATRIAL FIBRILLATION (8) Benign prostate hyperplasia Code(s): N40.0 - BENIGN PROSTATIC HYPERPLASIA WITHOUT LOWER URINRY TRACT SYMP (9) Congestive heart failure (CHF) Code(s): I50.9 - HEART FAILURE, UNSPECIFIED (10) H/O: CVA (cerebrovascular accident) Code(s): Z86.73 - PRSNL HX OF TIA (TIA), AND CEREB INFRC W/O RESID DEFICITS (11) Pleural effusion Code(s): J90 - PLEURAL EFFUSION, NOT ELSEWHERE CLASSIFIED Assessment/Plan IMP ACUTE ON CHRONIC CHF IMPROVING SEVERE RV DYSFUNCTION PLEURAL EFFUSION CHRONIC TRANSUDATE AFIB S/P SYMPTOMATIC BRADYCARDIA ANEMIA BPH PLAN DIURETICS HOME O2 MONITOR HR MONITOR JANIS CLAROS Problem List - Problems (1) RVF (right ventricular failure) Code(s): I50.9 - HEART FAILURE, UNSPECIFIED (2) Bradycardia Code(s): R00.1 - BRADYCARDIA, UNSPECIFIED (3) Near syncope Code(s): R55 - SYNCOPE AND COLLAPSE (4) Pleural effusion Code(s): J90 - PLEURAL EFFUSION, NOT ELSEWHERE CLASSIFIED (5) Acute exacerbation of CHF (congestive heart failure) Code(s): I50.9 - HEART FAILURE, UNSPECIFIED (6) Anemia Code(s): D64.9 - ANEMIA, UNSPECIFIED Qualifiers: (7) Atrial fibrillation Code(s): I48.91 - UNSPECIFIED ATRIAL FIBRILLATION (8) Benign prostate hyperplasia Code(s): N40.0 - BENIGN PROSTATIC HYPERPLASIA WITHOUT LOWER URINRY TRACT SYMP (9) Congestive heart failure (CHF) Code(s): I50.9 - HEART FAILURE, UNSPECIFIED (10) H/O: CVA (cerebrovascular accident) Code(s): Z86.73 - PRSNL HX OF TIA (TIA), AND CEREB INFRC W/O RESID DEFICITS (11) Pleural effusion Code(s): J90 - PLEURAL EFFUSION, NOT ELSEWHERE CLASSIFIED
[2018-02-28] MEDS ORDERED: PT OWN MED DRAWER 7, Y5N ONE ×3 (10:52→18:06)
[2018-02-28] MEDS: METOPROLOL TARTRATE 25 MG TABLET (FP) PO SCH (10:58)
[2018-02-28] MEDS: POTASSIUM CHLORIDE TABS 20 MEQ TABLET.ER (FP) PO SCH (10:58)
[2018-02-28] MEDS: MULTIVITAMINS (DAILY MVI) TABLET (FP) PO SCH (10:58)
[2018-02-28] MEDS: DABIGATRAN ETEXILATE MESYLATE 150 MG CAPSULE PO SCH (10:58)
[2018-02-28] MEDS: DOXYCYCLINE HYCLATE 100 MG CAPSULE PO SCH ×2 (10:58→18:30)
--- NOTE | 2018-02-28 11:27 | PN ---
Progress Note (short form) - Note Progress Note: CC: bradycardia S: no cp sob palps dizzy Current Medications Generic Name Dose Route Start Last Admin Trade Name Pino PRN Reason Stop Dose Admin Atorvastatin Calcium 10 mg 02/25/18 22:00 02/27/18 21:40 Lipitor - PO 10 mg SUTU@2200 NEIL Administration Dabigatran 150 mg 02/23/18 10:00 02/28/18 10:58 Pradaxa - PO 150 mg BID NEIL Administration Docusate Sodium 100 mg 02/24/18 22:00 02/28/18 06:51 Colace - PO 100 mg TID NEIL Administration Doxycycline Hyclate 100 mg 02/23/18 15:15 02/28/18 10:58 Vibramycin - PO 100 mg BID@1000,1800 NEIL Administration Furosemide 80 mg 02/27/18 06:00 02/28/18 06:51 Lasix - PO 80 mg BIDLASIX NEIL Administration Levothyroxine Sodium 100 mcg 02/23/18 07:00 02/28/18 06:52 Synthroid - PO 100 mcg DAILY@0700 NEIL Administration Metolazone 2.5 mg 02/27/18 05:30 02/28/18 06:10 Zaroxolyn - PO 2.5 mg DAILY@0530 NEIL Administration Metoprolol Tartrate 25 mg 02/26/18 22:00 02/28/18 10:58 Lopressor - PO 25 mg BID NEIL Administration Multivitamins/Minerals/Vitamin C 1 tab 02/24/18 14:15 02/28/18 10:58 Tab-A-Vit - PO 1 tab DAILY NEIL Administration Potassium Chloride 40 meq 02/25/18 22:00 02/28/18 10:58 K-Dur - PO 40 meq BID NEIL Administration Vital Signs Period Temp Pulse Resp BP Sys/Servin Pulse Ox Last 24 Hr 97.4 F-98.1 F 81-105 18-20 107-130/61-68 100 nad, calm irreg s1s2 no mrg bibasilar dullness, nl eff aao3 trace le edema bl abd nt nd pos bs no jaundice diaphoreis CBC, BMP 02/27/18 06:40 02/27/18 06:40 tele: rate controlled afib Echo 02/2018: EF 40-45%, mod-sev rve. mod-sev dec rv fn. mod marleny. 1+ ar/mr. mod-sev TR. mod pr. Echo 11/2014 : normal LV size, midly reduced LVF, mod enlarged RV, mod reduced RVF, severe biatrial dilation, severe TR, RVSP under-estimated, mod enlarged IVC ecg: afib, rbbb, rate controlled cxr: chronic right eff, no change 11/2017 a/p: 87 yo male with HTN, CHF, atrial fibrillation on AC with pradaxa, hypothyroid, CVA 2010 with slight R LE weakness, who presents with general weakness and dizzy --> noted to be bradycardic. dizzy, bradycardia: -presented with symptomatic bradycardia. afib with slow vr in 30s-40s. After holding his home toprol 100 qd, his hr now improved and has no dizziness. -02/24: HR better now in 70s. Continue to monitor on tele off bb to see how hr is controlled and see if he needs lower dose resumed. -Echo with RV dysfunction, LVEF 40-45%, Mild MR and MAC, Carotid U/s: no significant obstruction. -TSH normal -Would get oob and attempt ambulation -02/25: Will resume low dose metoprolol tartrate 12.5mg PO BID and titrate as tolerated. - 02/26 home lopressor (100 mg daily), initially stopped due to symptomatic bradycardia. Subsequently --> RVR. Rates remain uncontrolled on low dose lopressor --> uptitrated lopressor to 25 bid - 02/27-: rates improved on current lopressor dose. no recurrence of bradycardia/Slow ventricular rate, con't htn: -stable, on current meds. 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 -stable -chronic right eff -chronic le edema - 02/26 patient states he is on lasix 80 mg bid with metolazone daily at home, has only been on lasix daily here. Now with question of hypoxia today--> s/p lasix 40 mg iV x 1. Will uptitrate lasix back to home regimen. Clarify hypoxia, by weaning oxygen to see if he truly has new O2 requirement. Patient with known chronic rt pleural effusion, will recheck pa/lat cxr. - 02/27: O2 weaned, but patient with + desaturation on ambulation. has plan for chest ct to reassess size of right pleural effusion. Po lasix regimen increased to home regimen today (80 mg po bid with 2.5 of metolazone). Early this afternoon still on ~ 500 cc net negative. Will give extra dose of 40 mg IV lasix x 1. Monitor for worsening Cr and worsening hypokalemia. Patient still with low K on standing kcl 40 bid. -02/28: cont current po regimen hld: -cont home statin afib: -rate control as above -cont pradaxa
--- NOTE | 2018-02-28 12:08 | DS ---
Physical Exam: SUBJECTIVE: Patient seen and examined. He is oob to chair, mentating well, denies c/o sob, cp, dizziness. OBJECTIVE: Vital Signs Period Temp Pulse Resp BP Sys/Servin Pulse Ox Last 24 Hr 97.4 F-98.1 F 81-105 18-20 107-130/61-68 94-100 PE Neuro: alert, awake, cn 2-12intact Pulm: Dull diminished R base CV: s1 s2 irregular rhythm 2/6 murmur Abs: s nt nd + bs umbilical reproducible hernia Ext: R foot +1 edema, philomena bandages present HOSPITAL COURSE: Date of Admission:02/22/18 Date of Discharge: 02/28/18 Minutes to complete discharge: 38 Discharge Summary Reason For Visit: PLEURAL EFFUSION, BRADYCARDIA, PRE-SYNCOPE Current Active Problems Acute hypotension (Acute) Bradycardia (Acute) Bradycardia (Acute) DVT prophylaxis (Acute) Near syncope (Acute) Pleural effusion (Acute) RVF (right ventricular failure) (Acute) Hospital Course: Initial Hospital Course: Briefly, this 87 year old male with signifcant medical history of Afib (on Pradaxa), HTN, HLD, Biventricular Systolic HF, Severe TR, CVA (2010), Pleural Effusion s/p Thoracentesis (2014) presented to the ED with dizziness, weakness and SOB x1 day. Patient reports increased SOB on normal activity and on exertion. Patient reports having chronic bilateral LE edema with redness R>L. Subsequent Hospital Course/Progress Note/DC summary: Plan: 1. Dizziness d/t bradycardia, a fib w/ slow rvr - ECHO 02/2018: RV dysfunction, LVEF 40-45%, Mild MR and MAC, Carotid U/s: no significant obstruction. - Toprol xl stopped - TSH wnl - DC home on lopressor 25mg BID 2. A fib, slow rvr - Rate controlled now - DC home lopressor 25mg BID 3. Chronic systolic/diastolic HF - Lasix 80mg BID - Metolazone 2.5mg daily - PHILOMENA bandages to LE 4. Chronic R pleural effusion - CT chest show effusion largely unchanged - x2 taps show transudate - PT destas w ambulation, will DC home with home o2 - d/w pulm, no need for 3rd tap - On standing lasix and metolazone 5. s/p CVA - Stain, xaralto 6. Hypothyroid - Synthroid Dispo: - home with VNS and meds above - PCP and cardiology follow up as Condition: Stable - Instructions Diet, Activity, Other Instructions: Please return to the ED for any new, persistent, or worsening symptoms. Follow up with your PCP in 1 week You have a follow up appointment with Dr. Knox for March 01 10:30am. Resume home medication as directed, note change,you are now taking lopressor 25mg twice daily Continue philomena bandage wraps on your legs Use oxygen continuously when you are walking Referrals: Dyan Knox MD [Staff Physician] - (Dr. Knox: appointment made for March 01 10:30am. ) Brian Polo MD [Primary Care Provider] - Disposition: VNS/HOME HEALTH CARE - Home Medications Comprehensive Discharge Medication List: Ambulatory Orders Calcium Carbonate [Calcium] 500 mg PO BID tablet 11/06/14 Multivitamin [Daily Vitamin] 1 each PO DAILY tablet 11/06/14 [place]-3/Dha/Epa/Lut/Zeaxanthin [[facility] Softgel] 1 each PO 2 CAPS BID capsule 04/26/17 Ferrous Sulfate 325 mg PO DAILY 08/31/17 Acetaminophen [Tylenol .Regular Strength -] 650 mg PO Q4H PRN tablet 11/24/17 Docusate Sodium [Colace -] 100 mg PO TID capsule 11/24/17 Metolazone [Zaroxolyn -] 2.5 mg PO DAILY@0930 #30 tablet 11/24/17 Potassium Chloride [K-Dur -] 40 meq PO BID #60 tablet.er 11/24/17 Famotidine [Pepcid] 20 mg PO MOWEFR 12/16/17 Magnesium Oxide [Magnesium] 400 mg PO HS 12/16/17 Ascorbic Acid [Vitamin C -] 250 mg PO DAILY 02/22/18 L.acidoph,Paracasei, B.lactis [Probiotic] 1 each PO BID 02/22/18 Furosemide [Lasix] 80 mg PO BID 02/26/18 Metoprolol Tartrate [Lopressor -] 25 mg PO BID #60 tablet 02/28/18 This patient is new to me today: Yes Date on this admission: 02/28/18 Emergency Visit: Yes ED Registration Date: 02/22/18 Care time: The patient presented to the Emergency Department on the above date and was hospitalized for further evaluation of their emergent condition. Critical Care patient: No - Discharge Referral Referred to [facility] Yes Physician Referral: Brian Polo MD (Int Med)
[2018-02-28 12:55] LABS: BASO % 0.6 % (0-2.0); EOS % 2.1 % (0-4.5); HEMATOCRIT 35.6 % (35.4-49); HEMOGLOBIN 12.1 GM/dL (11.7-16.9); LYMPH % 19.2 % (8-40); MCH 32.9 pg (25.7-33.7); MCHC 33.9 g/dl (32.0-35.9); MEAN CELL VOLUME 97.1 fl (80-96); MEAN PLT VOLUME 7.6 fl (7.5-11.1); MONO % 6.2 % (3.8-10.2); NEUT % 71.9 % (42.8-82.8); PLATELET COUNT 171 K/MM3 (134-434); RBC 3.66 M/mm3 (4.00-5.60); RDW 16.6 % (11.9-15.9); WHITE BLOOD COUNT 4.2 K/mm3 (4.0-10.0)
[2018-02-28 13:16] LABS: INR 1.61 (0.82-1.09); PROTHROMBIN TIME (PATIENT) 18.2 SEC (9.7-13.0)
[2018-02-28 13:56] LABS: ALBUMIN 3.2 g/dl (3.4-5.0); ALK PHOS 154 U/L (45-117); ANION GAP 8 (8-16); BLOOD UREA NITROGEN 38 mg/dL (7-18); CALCIUM 8.7 mg/dL (8.5-10.1); CHLORIDE 94 mmol/L (98-107); CO2 36 mmol/L (21-32); GLUCOSE,RANDOM 98 mg/dL (74-106); SGOT/AST 50 U/L (15-37); SGPT/ALT 28 U/L (12-78); SODIUM 138 mmol/L (136-145)
[2018-02-28 13:57] LABS: TOT PROT 8.4 g/dl (6.4-8.2)
[2018-02-28 14:00] LABS: POTASSIUM 2.8 mmol/L (3.5-5.1)
[2018-02-28] MEDS ORDERED: POTASSIUM CHLORIDE ORAL LIQUID 20 MEQ/15 ML PO ONE (14:30)
--- NOTE | 2018-02-28 15:14 | PN ---
Progress Note, Physician History of Present Illness: doing well no complains ct scan done no new issues breathing better - Current Medication List Current Medications: Active Medications Atorvastatin Calcium (Lipitor -) 10 mg PO SUTU@2200 [facility] Last Admin: 02/27/18 21:40 Dose: 10 mg Dabigatran (Pradaxa -) 150 mg PO BID [facility] Last Admin: 02/28/18 10:58 Dose: 150 mg Docusate Sodium (Colace -) 100 mg PO TID [facility] Last Admin: 02/28/18 06:51 Dose: 100 mg Doxycycline Hyclate (Vibramycin -) 100 mg PO BID@1000,1800 [facility] Last Admin: 02/28/18 10:58 Dose: 100 mg Furosemide (Lasix -) 80 mg PO BIDLASIX [facility] Last Admin: 02/28/18 06:51 Dose: 80 mg Levothyroxine Sodium (Synthroid -) 100 mcg PO DAILY@0700 [facility] Last Admin: 02/28/18 06:52 Dose: 100 mcg Metolazone (Zaroxolyn -) 2.5 mg PO DAILY@0530 [facility] Last Admin: 02/28/18 06:10 Dose: 2.5 mg Metoprolol Tartrate (Lopressor -) 25 mg PO BID [facility] Last Admin: 02/28/18 10:58 Dose: 25 mg Multivitamins/Minerals/Vitamin C (Tab-A-Vit -) 1 tab PO DAILY [facility] Last Admin: 02/28/18 10:58 Dose: 1 tab Potassium Chloride (K-Dur -) 40 meq PO BID [facility] Last Admin: 02/28/18 10:58 Dose: 40 meq - Objective Vital Signs: Vital Signs Temperature 97.4 F L 02/28/18 10:00 Pulse Rate 86 02/28/18 11:43 Respiratory Rate 18 02/28/18 10:00 Blood Pressure 130/68 02/28/18 10:00 O2 Sat by Pulse Oximetry (%) 94 L 02/28/18 11:43 Constitutional: Yes: No Distress, Calm Respiratory: Yes: Regular, CTA Bilaterally Gastrointestinal: Yes: Normal Bowel Sounds, Soft Musculoskeletal: Yes: WNL Extremities: Yes: WNL Wound/Incision: Yes: Dressing Dry and Intact Neurological: Yes: Alert, Oriented Psychiatric: Yes: Alert, Oriented Labs: CBC, BMP 02/28/18 12:30 02/28/18 12:30 INR, PTT INR 1.61 (0.82-1.09) H 02/28/18 12:30 - ....Imaging Cat Scan: Report Reviewed, Image Reviewed Assessment/Plan 7 yo male with HTN, CHF, atrial fibrillation on AC with pradaxa, hypothyroid, 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 dizziness josué blisters erythema of the rt leg plan continue doxy complete the course rest as per the team patient stable
[2018-02-28 19:05] VITALS: BP 101/68; PULSE 93; TEMP 98.1
== END 2018-02-28 20:46 | disposition left against medical advice (07) | DRG 309 ==
LOC: SUPCPDRO 19:02 → FER 19:02 → OBSVTOIN 21:48 → FM/S 21:48 → UNDOADMOB 02-23 00:11 → J4W 02-23 05:00 → FM/S 02-23 05:00
PROVIDERS: ADMIT Internal Medicine; ATTEND Nurse Practitioner Acute Care
DX: R00.1 Bradycardia, unspecified (principal); J90 Pleural effusion, not elsewhere classified; I50.42 Chronic combined systolic (congestive) and diastolic (congestive) heart failure; L03.115 Cellulitis of right lower limb; L03.116 Cellulitis of left lower limb; R55 Syncope and collapse; I48.91 Unspecified atrial fibrillation; D64.9 Anemia, unspecified; I95.9 Hypotension, unspecified; Z86.73 Personal history of transient ischemic attack (TIA), and cerebral infarction without residual deficits; E03.9 Hypothyroidism, unspecified; N40.0 Benign prostatic hyperplasia without lower urinary tract symptoms; I11.0 Hypertensive heart disease with heart failure; E78.5 Hyperlipidemia, unspecified
CPT/HCPCS: 36415; 71045-TC-FY; 71046-TC-FY; 71250-TC; 80048; 80053; 80061; 81003; 82550; 83036; 83735; 83880; 84100; 84132; 84443; 84484; 85025; 85610; 87086; 93005; 93010; 93306-TC; 93880-TC; 94761; 97116-GP; 97161-GP; 99284-25

== ENCOUNTER → 2018-05-14 | Day surgery (SDC) | payer OTHER ==
--- NOTE | 2018-05-15 15:41 | PATH ---
Surgical Pathology Report Patient Name: VELMA JACOBSEN [facility]. Rec. #: [id number] /Age/Gender: 1930 (Age: 87) / M Account: [id number] Location: [facility] Taken: 05/14/2018 Received: 05/14/2018 Reported: 05/15/2018 Physicians: Sathish Gonzalez M.D. Specimen(s) Received BREAST CORE BIOPSY Clinical History Rule out cancer versus gynecomastia Final Diagnosis BREAST, LEFT, RETRO, CORE BIOPSY: GYNECOMASTIA. Electronically Signed Larisa Gunter M.D. Gross Description Received in formalin labeled "left retro-core biopsy," are 4 harris-yellow, cylindrical portions of fibroadipose tissue ranging from 0.8-1.5 cm in length and averaging 0.1 cm in diameter. The specimens are submitted in toto in one cassette. Time to formalin fixation: 2 minutes Total formalin fixation time: Approximately 6 hours. /05/14/2018 [facility]05/14/2018
== END | disposition home or self-care (01) ==
LOC: FRADUS-SUR 12:40
PROVIDERS: ATTEND Surgery Surgical Oncology
PROC: 0HBU3ZX Excision of Left Breast, Percutaneous Approach, Diagnostic (ICD-10-PCS; principal; 2018-05-14)
DX: N63.42 Unspecified lump in left breast, subareolar (principal); N62 Hypertrophy of breast
CPT/HCPCS: 19083; 77065-TC; 87899; 88305-TC; A4648

== ENCOUNTER 2018-08-05 11:07 | Inpatient (IN) | payer OTHER ==
--- NOTE | 2018-08-05 11:13 | PDOC ---
Attending Attestation - Resident Resident Name: Andrew Ahn - ED Attending Attestation I have performed the following: I have examined & evaluated the patient, The case was reviewed & discussed with the resident, I agree w/resident's findings & plan - HPI HPI: 08/05/18 11:43 87 y/o male with hx of a-fib, feeling weak for last 2-3 weeks. Hx of slow heart rate before and had medication changed. No chest pain, mild SOB with walking. No fever or chills. No back pain. Had a fall about 1 1/2 weeks ago. No LOC or headache. No N/V/d/C. - Physicial Exam PE: 08/05/18 11:44 VS noted HEENT: unremarkable Heart: bradycardic, no murmurs No JVD Lungs: CTA b/l no wheezes Abdomen: soft non tender +BS EXT: edema stasis dermatitis, right leg more swollen +2/4 edema b/l, no calf tenderness b/; Neuro: grossly intact, no focal deficits noted - Medical Decision Making 08/05/18 14:45 Patient with symptomatic bradycardia, will need to hold Beta Sania and consider pacemaker Spoke with Dr. Matos [employer] Developer covering Dr[facility] Shearer[facility] will see pt Dr. Macias covering ICU has accepted patient Dr. Gautam [employer] agrees with plan and will see pt in ICU Case discussed with resident Dr. Limon and family In agreement with plan 08/05/18 14:47 CXR unchagned from prior: cardiomegaly and fluid EKG: a-fib, rate 36 inverted T waves Patient drops to hr of [address] [facility] ICU
[2018-08-05] MEDS ORDERED: SODIUM CHLORIDE 500 ML IV STA (11:31)
--- NOTE | 2018-08-05 11:36 | PDOC ---
History of Present Illness - General Chief Complaint: Weakness Stated Complaint: WEAKNESS Time Seen by Provider: 08/05/18 11:12 - History of Present Illness Initial Comments: 08/05/18 11:35 Mr. Strange is an 87 yo w/ pmh of HTN, HLD, afib (on pradaxa), biventricular systolic heart failure, CVA (2010), hypothyroidism and recent admission in February for weakness with bradycardia who presents for evaluation of 3 week history of generalized weakness. Patient reports he elected to come today as he was "sick of feeling weak" however otherwise has no additional complaints. Patient also endorses fall about a weak ago that he attributes to his current weakness. Per patient family member who is with him he has been mentating at his baseline however the weakness has been apparent throughout time course. The patient denies chest pain, shortness of breath, headache and dizziness. Denies fever, chills, nausea, vomit, diarrhea and constipation. Denies dysuria, frequency, urgency and hematuria. Patient is full code and would like all life saving efforts taken as needed. Allergies: NKDA Past History - Past Medical History Allergies/Adverse Reactions: Allergies Allergy/AdvReac Type Severity Reaction Status Date / Time No Known Allergies Allergy Verified 08/05/18 11:13 Home Medications: Ambulatory Orders Ascorbic Acid [Vitamin C] 500 mg PO DAILY 08/05/18 Atorvastatin Ca [Lipitor] 0 mg PO ASDIR 08/05/18 Beta-Carotene(A) W-C and E/Min [Ocuvite (Nf)] 1 tab PO DAILY 08/05/18 Dabigatran Etexilate Mesylate [Pradaxa -] 150 mg PO BID 08/05/18 Famotidine [Pepcid] 40 mg PO ASDIR 08/05/18 Ferrous Sulfate [Feosol] 325 mg PO DAILY 08/05/18 Furosemide [Lasix] 80 mg PO BID 08/05/18 Levothyroxine [Synthroid -] 100 mcg PO DAILY 08/05/18 Metolazone [Zaroxolyn -] 2.5 mg PO DAILY 08/05/18 Metoprolol Tartrate [Lopressor -] 25 mg PO BID 08/05/18 Potassium Chloride 20 meq PO ASDIR 08/05/18 Potassium Chloride 40 meq PO BID 08/05/18 Anemia: No Asthma: No Cancer: Yes (Skin) Cardiac Disorders: Yes (atrial fibrillation) CVA: Yes ([id number]) COPD: No CHF: Yes Dementia: No Diabetes: No GI Disorders: No Disorders: No HTN: No Hypercholesterolemia: Yes Liver Disease: No Seizures: No Thyroid Disease: Yes - Surgical History Abdominal Surgery: Yes (Colon Resection) Appendectomy: No Cardiac Surgery: No Cholecystectomy: No GI Surgery: Yes (large intestine) Lung Surgery: Yes (Thorocentesis 10/2014) Neurologic Surgery: No Orthopedic Surgery: Yes (MAMIE HIP REPLACEMENT) - Suicide/Smoking/Psychosocial Hx Smoking History: Never smoked Have you smoked in the past 12 months: No Hx Alcohol Use: No Drug/Substance Use Hx: No Substance Use Type: None Hx Substance Use Treatment: No Review of Systems - Review of Systems Comments:: 08/05/18 11:50 GENERAL/CONSTITUTIONAL: +Weakness as described. No fever or chills. HEAD, EYES, EARS, NOSE AND THROAT: No change in vision. No ear pain or discharge. No sore throat. CARDIOVASCULAR: No chest pain or shortness of breath RESPIRATORY: No cough, wheezing, or hemoptysis. GASTROINTESTINAL: No nausea, vomiting, diarrhea or constipation. GENITOURINARY: No dysuria, frequency, or change in urination. MUSCULOSKELETAL: No joint or muscle swelling or pain. No neck or back pain. SKIN: No rash NEUROLOGIC: No headache, vertigo, loss of consciousness, or change in strength/ sensation. ENDOCRINE: No increased thirst. No abnormal weight change HEMATOLOGIC/LYMPHATIC: No anemia, easy bleeding, or history of blood clots. ALLERGIC/IMMUNOLOGIC: No hives or skin allergy. *Physical Exam - Vital Signs Last Vital Signs Temp Pulse Resp BP Pulse Ox 97.3 F L 48 L 18 122/57 L 97 08/05/18 11:08 08/05/18 11:08 08/05/18 11:08 08/05/18 11:08 08/05/18 11:08 - Physical Exam Comments: 08/05/18 11:50 GENERAL: +Patient weak appearing with delayed responses. Awake, alert, and fully oriented HEAD: +Minor abbrasions to Right forehead c/w fall. Normocephalic. EYES: PERRLA, EOMI, sclera anicteric, conjunctiva clear ENT: Auricles normal inspection, hearing grossly normal, nares patent, oropharynx clear without exudates. Moist mucosa NECK: Normal ROM, supple, no lymphadenopathy, JVD, or masses LUNGS: No distress, speaks full sentences, clear to auscultation bilaterally HEART: +Extreme bradycardia noted with afib and rhythm, normal S1 and S2, no murmurs, rubs or gallops, peripheral pulses normal and equal bilaterally. ABDOMEN: +Approximate softbowl sized bruising noted to mid back. Soft, nontender , normoactive bowel sounds. No guarding, no rebound. No masses EXTREMITIES: Normal inspection, Normal range of motion, no edema. No clubbing or cyanosis. NEUROLOGICAL: Cranial nerves II through XII grossly intact. Normal speech, normal gait, no focal sensorimotor deficits SKIN: Warm, Dry, normal turgor, no rashes or lesions noted. ED Treatment Course - LABORATORY CBC & Chemistry Diagram: 08/05/18 11:47 08/05/18 11:47 - RADIOLOGY Radiology Studies Ordered: Category Date Time Status CXRPORT [CHEST X-RAY PORTABLE*] [RAD] Stat Radiology 08/05/18 11:30 Ordered Medical Decision Making - Medical Decision Making 08/05/18 12:07 Mr. Strange is an 87 yo male w/ pmh as described who presents for evaluation of weakness c/w bradycardia. Patient noted to be josué to 33 at presentation. Cardiac workup started. 08/05/18 13:15 Patient on telemetry monitoring. 500mL bolus given for hydration. EKG significant for extreme bradycardia w/out discernablePatient noted to have troponin of 0.22. 08/05/18 13:22 Discussed patient with personal Machinist Brake (Morgan garcia for Dyan Knox) who does not follow at hospital and recommended admission with inpatient follow-up. 08/05/18 14:18 Discussed patient with in-house Machinist Brake Dr. Hidalgo who supported ICU admission with serial troponins for further care. Admitting to ICU at [facility]. Administering additional fluid for hydration. EMS transport called for transfer. 08/05/18 15:43 EMS arrived. Patient remains AOx3 with continuing to fluctuate HR. Patient en route to [facility]. Laboratory Results - last 24 hr 08/05/18 08/05/18 08/05/18 11:47 11:47 11:47 WBC 3.3 L RBC 3.26 L Hgb 11.2 L Hct 33.1 L MCV 101.4 H MCH 34.2 H MCHC 33.7 RDW 16.1 H Plt Count 168 MPV 9.0 Absolute Neuts (auto) 2.6 Neutrophils % 75.8 Lymphocytes % 15.4 D Monocytes % 7.5 Eosinophils % 0.8 Basophils % 0.5 PT with INR INR PTT (Actin FS) Sodium 135 L Potassium 4.3 D Chloride 97 L Carbon Dioxide 24 D Anion Gap 14 BUN 68 H Creatinine 2.4 H Creat Clearance w eGFR 25.74 Random Glucose 136 H D Calcium 9.1 Total Bilirubin 1.8 H AST 48 H ALT 23 Alkaline Phosphatase 126 H Troponin I 0.22 H D Total Protein 7.6 Albumin 4.0 Urine Color Urine Appearance Urine pH Ur Specific [place] Urine Protein Urine Glucose (UA) Urine Ketones Urine Blood Urine Nitrite Urine Bilirubin Urine Urobilinogen Ur Leukocyte Esterase 08/05/18 08/05/18 08/05/18 11:47 12:08 12:35 WBC RBC Hgb Hct MCV MCH MCHC RDW Plt Count MPV Absolute Neuts (auto) Neutrophils % Lymphocytes % Monocytes % Eosinophils % Basophils % PT with INR Cancelled 56.0 H INR Cancelled 5.16 H* D PTT (Actin FS) Cancelled Sodium Potassium Chloride Carbon Dioxide Anion Gap BUN Creatinine Creat Clearance w eGFR Random Glucose Calcium Total Bilirubin AST ALT Alkaline Phosphatase Troponin I Total Protein Albumin Urine Color Yellow Urine Appearance Clear Urine pH 7.0 Ur Specific [place] 1.015 Urine Protein Negative Urine Glucose (UA) Negative Urine Ketones Negative Urine Blood Negative Urine Nitrite Negative Urine Bilirubin Negative Urine Urobilinogen 0.2 Ur Leukocyte Esterase Negative *DC/Admit/Observation/Transfer Diagnosis at time of Disposition: Bradycardia with 31-40 beats per minute, Weakness - Discharge Dispostion Disposition: TRANSFER ACUTE CARE/OTHER HOSP Condition at time of disposition: Stable Decision to Admit order: Yes - Referrals Referrals: Brian Polo MD [Primary Care Provider] - - Patient Instructions - Post Discharge Activity
[2018-08-05 12:17] LABS: BASO % 0.5 % (0-2.0); EOS % 0.8 % (0-4.5); HEMATOCRIT 33.1 % (35.4-49); HEMOGLOBIN 11.2 GM/dl (11.7-16.9); LYMPH % 15.4 % (8-40); MCH 34.2 pg (25.7-33.7); MCHC 33.7 g/dl (32.0-35.9); MEAN CELL VOLUME 101.4 fl (80-96); MONO % 7.5 % (3.8-10.2); NEUT % 75.8 % (42.8-82.8); PLATELET COUNT 168 K/MM3 (134-434); RBC 3.26 M/mm3 (4.00-5.60); RDW 16.1 % (11.9-15.9); WHITE BLOOD COUNT 3.3 K/mm3 (4.0-10.8)
[2018-08-05 12:17] LABS: URINE APPEARANCE Clear; URINE BILIRUBIN Negative (NEGATIVE); URINE COLOR Yellow; URINE GLUCOSE (UA) Negative (NEGATIVE); URINE KETONE Negative (NEGATIVE); URINE LEUK ESTERASE Negative (NEGATIVE); URINE NITRITE Negative (NEGATIVE); URINE PROTEIN Negative (NEGATIVE); URINE UROBILINOGEN 0.2 (0.2-1.0)
[2018-08-05 13:16] LABS: INR 5.16 (0.82-1.09)
[2018-08-05 13:23] LABS: ALK PHOS 126 U/L (32-92); ANION GAP 14 MMOL/L (8-16); BILIRUBIN,TOTAL 1.8 mg/dl (0.2-1.0); CALCIUM 9.1 mg/dl (8.4-10.2); CHLORIDE 97 mmol/L (98-107); CO2 24 mmol/L (22-28); GLUCOSE,RANDOM 136 mg/dl (74-106); POTASSIUM 4.3 mmol/L (3.5-5.1); SGOT/AST 48 U/L (10-42); SGPT/ALT 23 U/L (10-40); SODIUM 135 mmol/L (136-145); TOT PROT 7.6 g/dl (6.4-8.3)
[2018-08-05 13:36] LABS: BLOOD UREA NITROGEN 68 mg/dl (7-18); CREATININE 2.4 mg/dl (0.6-1.3)
--- NOTE | 2018-08-05 13:51 | EKG ---
Test Reason : Blood Pressure : / mmHG Vent. Rate : 036 BPM Atrial Rate : 031 BPM P-R Int : 000 ms QRS Dur : 146 ms QT Int : 636 ms P-R-T Axes : 000 -01 -65 degrees QTc Int : 491 ms IDIOVENTRICULAR RHYTHM RIGHT BUNDLE BRANCH BLOCK T WAVE ABNORMALITY, CONSIDER INFERIOR ISCHEMIA ABNORMAL ECG WHEN COMPARED WITH ECG OF 23-FEB-2018 10:21, IDIOVENTRICULAR RHYTHM HAS REPLACED ATRIAL FIBRILLATION VENT. RATE HAS DECREASED BY 44 BPM Confirmed by MD Carolina, Flaquito ([id number]) on 08/05/2018 1:51:23 PM Referred By: MARCELO WAKEFIELD Confirmed By:Flaquito Figueroa MD
[2018-08-05 14:59] LABS: N-TERMINAL BNP 1961.7 pg/ml (5-450)
--- NOTE | 2018-08-05 16:20 | HP ---
CHIEF COMPLAINT: PCP: HISTORY OF PRESENT ILLNESS: 87 year-old male with a PMH significant for HTN, HLD, afib with on dagitriban with previous episodes of slow ventricular response, biventricular systolic heart failure, severe TR, CVA (2010), right pleural effusion s/p thoracenteses x 2, and hypothyroidism. Presented to the [facility] ED today complaints of weakness and lethargy x 10 days, worse over the past several days. Found to have HR 30's , BP stable. Last dose metoprolol 25mg this am. Transferred to ICU. At the time of this ICU admission, observed several 4 second pauses with patient simultaneously reporting feeling jittery, weak, and lightheaded. External pacing started, rate 50 with MA 46. Patient denies chest pain, palpitations, diaphoresis, lower extremity edema. Denies fever, sweats, chills, nausea, vomiting, diarrhea. Recent Travel: No PAST MEDICAL HISTORY: Hypertension Hyperlipidemia Atrial fibrillation w/ h/o of episodes of slow ventricular response Biventricular heart failure Severe TR CVA Chronic right pleural effusion Hypothyroidism PAST SURGICAL HISTORY: Thoracenteses x 2 Social History: Smoking: no Alcohol: no Drugs: no Family History: lives with spouse Allergies No Known Allergies Allergy (Verified 08/05/18 11:13) HOME MEDICATIONS: Home Medications Medication Instructions Recorded Ascorbic Acid [Vitamin C] 500 mg PO DAILY 08/05/18 Atorvastatin Ca [Lipitor] 0 mg PO ASDIR 08/05/18 Beta-Carotene(A) W-C and E/Min 1 tab PO DAILY 08/05/18 [Ocuvite (Nf)] Dabigatran Etexilate Mesylate 150 mg PO BID 08/05/18 [Pradaxa -] Famotidine [Pepcid] 40 mg PO ASDIR 08/05/18 Ferrous Sulfate [Feosol] 325 mg PO DAILY 08/05/18 Furosemide [Lasix] 80 mg PO BID 08/05/18 Levothyroxine [Synthroid -] 100 mcg PO DAILY 08/05/18 Metolazone [Zaroxolyn -] 2.5 mg PO DAILY 08/05/18 Metoprolol Tartrate [Lopressor -] 25 mg PO BID 08/05/18 Potassium Chloride 20 meq PO ASDIR 08/05/18 Potassium Chloride 40 meq PO BID 08/05/18 REVIEW OF SYSTEMS CONSTITUTIONAL: +weakness, fatigue Absent: fever, chills, diaphoresis, generalized weakness, malaise, loss of appetite, weight change HEENT: Absent: rhinorrhea, nasal congestion, throat pain, throat swelling, difficulty swallowing, mouth swelling, ear pain, eye pain, visual changes CARDIOVASCULAR: +lightheadedness, irregular HR Absent: chest pain, syncope, palpitations, peripheral edema RESPIRATORY: Absent: cough, shortness of breath, dyspnea with exertion, orthopnea, wheezing, stridor, hemoptysis GASTROINTESTINAL: Absent: abdominal pain, abdominal distension, nausea, vomiting, diarrhea, constipation, melena, hematochezia GENITOURINARY: Absent: dysuria, frequency, urgency, hesitancy, hematuria, flank pain, genital pain MUSCULOSKELETAL: Absent: myalgia, arthralgia, joint swelling, back pain, neck pain SKIN: Absent: rash, itching, pallor HEMATOLOGIC/IMMUNOLOGIC: Absent: easy bleeding, easy bruising, lymphadenopathy, frequent infections ENDOCRINE: Absent: unexplained weight gain, unexplained weight loss, heat intolerance, cold intolerance NEUROLOGIC: Absent: headache, focal weakness or paresthesias, dizziness, unsteady gait, seizure, mental status changes, bladder or bowel incontinence PSYCHIATRIC: Absent: anxiety, depression, suicidal or homicidal ideation, hallucinations. PHYSICAL EXAMINATION Vital Signs - 24 hr 08/05/18 08/05/18 08/05/18 11:08 11:48 12:30 Temperature 97.3 F L Pulse Rate 48 L Pulse Rate [ 33 L 31 L Apical] Respiratory 18 18 Rate Blood Pressure 122/57 L Blood Pressure 112/58 L [Right Arm] O2 Sat by Pulse 97 100 Oximetry (%) 08/05/18 08/05/18 08/05/18 12:35 13:47 14:20 Temperature Pulse Rate Pulse Rate [ 63 32 L 36 L Apical] Respiratory 20 20 20 Rate Blood Pressure Blood Pressure 112/58 L 119/79 109/52 L [Right Arm] O2 Sat by Pulse 100 100 100 Oximetry (%) 08/05/18 15:14 Temperature Pulse Rate Pulse Rate [ 32 L Apical] Respiratory 18 Rate Blood Pressure Blood Pressure 94/60 [Right Arm] O2 Sat by Pulse 100 Oximetry (%) GENERAL: Awake, alert, and fully oriented, in no acute distress. LUNGS: Breath sounds equal, clear to auscultation bilaterally. No wheezes, and no crackles. No accessory muscle use. HEART: Irregular, S1, S2 ABDOMEN: Soft, nontender, not distended UPPER EXTREMITIES: 2+ pulses, warm, well-perfused. No cyanosis. No clubbing. No peripheral edema. LOWER EXTREMITIES: 2+ pulses, warm, well-perfused. No calf tenderness. No peripheral edema. NEUROLOGICAL: Cranial nerves II-XII intact. Normal speech. Laboratory Results - last 24 hr 08/05/18 08/05/18 08/05/18 11:47 11:47 11:47 WBC 3.3 L RBC 3.26 L Hgb 11.2 L Hct 33.1 L MCV 101.4 H MCH 34.2 H MCHC 33.7 RDW 16.1 H Plt Count 168 MPV 9.0 Absolute Neuts (auto) 2.6 Neutrophils % 75.8 Lymphocytes % 15.4 D Monocytes % 7.5 Eosinophils % 0.8 Basophils % 0.5 PT with INR INR PTT (Actin FS) Sodium 135 L Potassium 4.3 D Chloride 97 L Carbon Dioxide 24 D Anion Gap 14 BUN 68 H Creatinine 2.4 H Creat Clearance w eGFR 25.74 Random Glucose 136 H D Calcium 9.1 Total Bilirubin 1.8 H AST 48 H ALT 23 Alkaline Phosphatase 126 H Troponin I 0.22 H D B-Natriuretic Peptide 1961.7 H Total Protein 7.6 Albumin 4.0 TSH 5.86 H D Urine Color Urine Appearance Urine pH Ur Specific [place] Urine Protein Urine Glucose (UA) Urine Ketones Urine Blood Urine Nitrite Urine Bilirubin Urine Urobilinogen Ur Leukocyte Esterase 08/05/18 08/05/18 08/05/18 11:47 12:08 12:35 WBC RBC Hgb Hct MCV MCH MCHC RDW Plt Count MPV Absolute Neuts (auto) Neutrophils % Lymphocytes % Monocytes % Eosinophils % Basophils % PT with INR Cancelled 56.0 H INR Cancelled 5.16 H* D PTT (Actin FS) Cancelled Sodium Potassium Chloride Carbon Dioxide Anion Gap BUN Creatinine Creat Clearance w eGFR Random Glucose Calcium Total Bilirubin AST ALT Alkaline Phosphatase Troponin I B-Natriuretic Peptide Total Protein Albumin TSH Urine Color Yellow Urine Appearance Clear Urine pH 7.0 Ur Specific [place] 1.015 Urine Protein Negative Urine Glucose (UA) Negative Urine Ketones Negative Urine Blood Negative Urine Nitrite Negative Urine Bilirubin Negative Urine Urobilinogen 0.2 Ur Leukocyte Esterase Negative ASSESSMENT/PLAN: 86 year-old male with a PMH significant for HTN, HLD, afib on dagitriban, biventricular systolic heart failure, severe TR, CVA (2010), right pleural effusion s/p thoracentesis (2014), and hypothyroidism. Atrial fibrillation with slow ventricular response --now in junctional ryhthm with 4 second pauses, +symptomatic --admitted from home on metoprolol 25mg BID, last dose this morning --presently being externally paced, rate 50, MA 46 --hold dagitriban, metoprolol --discussed with Dr. Lea and resident ICU team Acute kidney injury Azotemia --Cr 2.4 on admission, baseline 1.1 --given 1L fluids in ED; need to be cautious with fluids given CHF --has been on lasix and metazalone --hold diuretics for now, hold IV fluids --discussed with Dr. Ryan --monitor UOP --urine studies Biventricular systolic heart failure --02/23 Echo: EF 40-45%; RV moderately to severely reduced; BLAE; mild MR; moderate to severe TR; mild AI; moderate PI --externally paced h/o CVA Right pleural effusion --chronic, stable Hypothyroidism --TSH 5.86, increase levothyroxine to 112mcg --free T3, free T4 pending Hypertension --BP has been stable; hold anti-hypertensives Hyperlipidemia FEN Fluids: PO intake adequate Electrolytes: replete as indicated Nutrition: NPO for now DVT prophylaxis: on dagitriban on hold Physical therapy Dispo: continues to require ICU level care. Visit type - Emergency Visit Emergency Visit: Yes ED Registration Date: 08/05/18 Care time: The patient presented to the Emergency Department on the above date and was hospitalized for further evaluation of their emergent condition. - New Patient This patient is new to me today: Yes Date on this admission: 08/05/18 - Critical Care Critical Care patient: Yes Total Critical Care Time (in minutes): 60 Critical Care Statement: The care of this patient involved high complexity decision making to prevent further life threatening deterioration of the patient 's condition and/or to evaluate & treat vital organ system(s) failure or risk of failure.
[2018-08-05 16:37] VITALS: BMI 24.3
--- NOTE | 2018-08-05 17:03 | CONSULT ---
Consultation: REQUESTING PROVIDER: CONSULT REQUEST: We have been asked to medically evaluate this patient for Symptomatic bradycardia and fatigue. HISTORY OF PRESENT ILLNESS: Mr. Strange is a pleasant 87 yo M w/ a sig pmh of CHF - Biventricular systolic heart failure, AFIB, CVA(2010), hypothyroidism who presents to the [facility] ICU as a transfer from [place] due to symptomatic bradycardia. Upon arrival to the ICU the patient currently has a heart rate of 72 and is asymptomatic. He states that throughout the day his HR has alternated between the 30s and the 70s. Additionally, he endorses that he fell down around a week ago on his back. He denies hitting his head or experiencing any LOC. Patient states he has actually been feeling drowsy and lethargic for around three weeks now. The patient denies chest pain, shortness of breath, headache and dizziness. Denies fever, chills, nausea, vomit, diarrhea and constipation. Denies dysuria, frequency, urgency and hematuria. Patient is full code and would like all life saving efforts taken as needed. Allergies: NKDA REVIEW OF SYSTEMS: CONSTITUTIONAL: Present: Generalized weakness Absent: fever, chills, diaphoresis, malaise, loss of appetite, weight change HEENT: Absent: rhinorrhea, nasal congestion, throat pain, throat swelling, difficulty swallowing, mouth swelling, ear pain, eye pain, visual changes CARDIOVASCULAR: Present: Lightheadedness. Absent: chest pain, syncope, palpitations, irregular heart rate, peripheral edema RESPIRATORY: Absent: cough, shortness of breath, dyspnea with exertion, orthopnea, wheezing, stridor, hemoptysis GASTROINTESTINAL: Absent: abdominal pain, abdominal distension, nausea, vomiting, diarrhea, constipation, melena, hematochezia GENITOURINARY: Absent: dysuria, frequency, urgency, hesitancy, hematuria, flank pain, genital pain MUSCULOSKELETAL: Present: back pain, arthralgia Absent: myalgia, joint swelling, neck pain SKIN: Present: Rash Absent: itching, pallor HEMATOLOGIC/IMMUNOLOGIC: Present: Easy bleeding, easy bruising Absent: lymphadenopathy, frequent infections ENDOCRINE: Absent: unexplained weight gain, unexplained weight loss, heat intolerance, cold intolerance NEUROLOGIC: Absent: headache, focal weakness or paresthesias, dizziness, unsteady gait, seizure, mental status changes, bladder or bowel incontinence PSYCHIATRIC: Absent: anxiety, depression, suicidal or homicidal ideation, hallucinations. PHYSICAL EXAMINATION Vital Signs - 24 hr 08/05/18 08/05/18 08/05/18 11:08 11:48 12:30 Temperature 97.3 F L Pulse Rate 48 L Pulse Rate [ 33 L 31 L Apical] Respiratory 18 18 Rate Blood Pressure 122/57 L Blood Pressure 112/58 L [Right Arm] O2 Sat by Pulse 97 100 Oximetry (%) 08/05/18 08/05/18 08/05/18 12:35 13:47 14:20 Temperature Pulse Rate Pulse Rate [ 63 32 L 36 L Apical] Respiratory 20 20 20 Rate Blood Pressure Blood Pressure 112/58 L 119/79 109/52 L [Right Arm] O2 Sat by Pulse 100 100 100 Oximetry (%) 08/05/18 08/05/18 08/05/18 15:14 16:31 16:44 Temperature 97.4 F L 97.4 F L Pulse Rate 72 72 Pulse Rate [ 32 L Apical] Respiratory 18 19 19 Rate Blood Pressure 129/73 129/73 Blood Pressure 94/60 [Right Arm] O2 Sat by Pulse 100 Oximetry (%) GENERAL: Awake, alert, and fully oriented, in no acute distress. HEAD: Normal with no signs of trauma. EYES: Pupils equal, round and reactive to light, extraocular movements intact, sclera anicteric, conjunctiva clear. No lid lag. EARS, NOSE, THROAT: Ears normal, nares patent, oropharynx clear without exudates. Moist mucous membranes. NECK: + JVD. Normal range of motion, supple without lymphadenopathy,or masses. LUNGS: Decreased sound at bases. Clear to auscultation bilaterally in the upper lobes. HEART: Regular rate and rhythm, normal S1 and S2 Holosystolic blowing murmer ABDOMEN: Soft, nontender, not distended, normoactive bowel sounds, no guarding, no rebound, no masses. No hepatomegaly or splenomegaly. MUSCULOSKELETAL: Limited ROM at most joints. No CVA tenderness. UPPER EXTREMITIES: 2+ pulses, warm, well-perfused. No cyanosis. No clubbing. Cap refill <2 seconds. No peripheral edema. LOWER EXTREMITIES: Chronic venous stasis dermatitis rash. 2+ pulses, warm, well- perfused. No calf tenderness. No peripheral edema. NEUROLOGICAL: Cranial nerves II-XII intact. Normal speech. Normal gait. PSYCHIATRIC: Cooperative. Good eye contact. Appropriate mood and affect. SKIN: Warm, dry, normal turgor. Laboratory Results - last 24 hr 08/05/18 08/05/18 08/05/18 11:47 11:47 11:47 WBC 3.3 L RBC 3.26 L Hgb 11.2 L Hct 33.1 L MCV 101.4 H MCH 34.2 H MCHC 33.7 RDW 16.1 H Plt Count 168 MPV 9.0 Absolute Neuts (auto) 2.6 Neutrophils % 75.8 Lymphocytes % 15.4 D Monocytes % 7.5 Eosinophils % 0.8 Basophils % 0.5 PT with INR INR PTT (Actin FS) Sodium 135 L Potassium 4.3 D Chloride 97 L Carbon Dioxide 24 D Anion Gap 14 BUN 68 H Creatinine 2.4 H Creat Clearance w eGFR 25.74 Random Glucose 136 H D Calcium 9.1 Total Bilirubin 1.8 H AST 48 H ALT 23 Alkaline Phosphatase 126 H Troponin I 0.22 H D B-Natriuretic Peptide 1961.7 H Total Protein 7.6 Albumin 4.0 TSH 5.86 H D Urine Color Urine Appearance Urine pH Ur Specific [place] Urine Protein Urine Glucose (UA) Urine Ketones Urine Blood Urine Nitrite Urine Bilirubin Urine Urobilinogen Ur Leukocyte Esterase 08/05/18 08/05/18 08/05/18 11:47 12:08 12:35 WBC RBC Hgb Hct MCV MCH MCHC RDW Plt Count MPV Absolute Neuts (auto) Neutrophils % Lymphocytes % Monocytes % Eosinophils % Basophils % PT with INR Cancelled 56.0 H INR Cancelled 5.16 H* D PTT (Actin FS) Cancelled Sodium Potassium Chloride Carbon Dioxide Anion Gap BUN Creatinine Creat Clearance w eGFR Random Glucose Calcium Total Bilirubin AST ALT Alkaline Phosphatase Troponin I B-Natriuretic Peptide Total Protein Albumin TSH Urine Color Yellow Urine Appearance Clear Urine pH 7.0 Ur Specific [place] 1.015 Urine Protein Negative Urine Glucose (UA) Negative Urine Ketones Negative Urine Blood Negative Urine Nitrite Negative Urine Bilirubin Negative Urine Urobilinogen 0.2 Ur Leukocyte Esterase Negative Active Medications Generic Name Dose Route Start Last Admin Trade Name Freq PRN Reason Stop Dose Admin Atorvastatin Calcium 10 mg 08/05/18 22:00 Lipitor - PO [facility] Chlorhexidine Gluconate 1 applic 08/05/18 22:00 Hibiclens For Decolonization - TP [facility] Dabigatran 75 mg 08/05/18 22:00 Pradaxa - PO BID [facility] Levothyroxine Sodium 112 mcg 08/06/18 07:00 Synthroid - PO DAILY@0700 [facility] Mupirocin 1 applic 08/05/18 22:00 Bactroban Ointment (For Decolonization) - NS 08/10/18 21:59 BID [facility] Pantoprazole Sodium 40 mg 08/06/18 10:00 Protonix - PO DAILY [facility] ASSESSMENT/PLAN: Assessment: 87 yo M w/ a sig pmh of CHF - Biventricular systolic heart failure, AFIB, CVA( 2010), hypothyroidism who presents to the [facility] ICU as a transfer from [place] due to symptomatic bradycardia. Here in the ICU I observed his HR paroxysmally drop from 70 to 30 while the patient was lying in bed. His HR then re-escalated to 70 without any intervention. A second decrease went down to 28 and the patient went 4 seconds without a heart beat. The patient was completely asymptomatic when his heart bradied down to 30. He was not aware that his HR decreased. He did not experience any chest pain. ER Labs significant for: + Trop - 0.22 PT - 56 INR - 5.16 TSH - 5.86 BUN - 68 Cr - 2.4 We have placed pacer pads at bedside in case the patient becomes symptomatic and needs to be paced. EKG: RBBB, idiojunctional rhythm with no P waves. Plan: Discussed As per Dr. Lea. 1) ICU Monitoring 2) Pacemaker standby - Do Not activate now 3) Patient can also have BB OverDose. If he keeps on Bradying down consider glucagon. 4) fStart atropine if needed. 0.5 mg IV PRN 5) When giving IV glucagon 5 mg + Zofran - Then IV glucagon drip 6) Pending Free T3/T4 7) EP ([place]) 8) IV NO @ 100 mls/hr Cardiology: - This Can possibly be sick sinus syndrome. - Pacer pads at bedside - Atropine ready for use - Positive Trop 0.22. Will continue to trend. - Last echo - 40-45%, 02/23. R ventricle moderate to severe dilatation. Function sig reduced. LA, RA moderately dilated. Moderate to severe AR. - Cardio Consult - Dr. Hidalgo Renal: - He is experiencing GILMER. - Bun - 68, Cr - 2.4 suggestive of a Pre-renal etiology. Will resuscitate with 500 ml. - Will get Urine electrolytes. - Monitor Is and Os Heme: - Patient takes Dabigatran and has a supratherapeutic PT of 56 and INR of 5.16 - Stop med and trend Neuro: - Once he is stable we will get a head CT to assess for subdural from fall 1 week ago. GI: - No problems. Patient is eating normally. Code Status: - Full code Dispo: We will continue to follow the patient. Thank you for this consultative opportunity. Visit type - Emergency Visit Emergency Visit: Yes ED Registration Date: 08/05/18 Care time: The patient presented to the Emergency Department on the above date and was hospitalized for further evaluation of their emergent condition. - New Patient This patient is new to me today: Yes Date on this admission: 08/05/18 - Critical Care Critical Care patient: Yes Total Critical Care Time (in minutes): 36 Critical Care Statement: The care of this patient involved high complexity decision making to prevent further life threatening deterioration of the patient 's condition and/or to evaluate & treat vital organ system(s) failure or risk of failure.
[2018-08-05] MEDS ORDERED: SODIUM CHLORIDE 0.9% 500 ML INFUS.BAG IV ONE (17:51)
[2018-08-05] MEDS ORDERED: SODIUM CHLORIDE 500 ML IV ONE ×2 (18:00→19:15)
[2018-08-05] MEDS ORDERED: ATROPINE SULFATE 1 MG/10 ML DISP.SYRIN ONE (18:26)
--- NOTE | 2018-08-05 18:47 | CON.NEP ---
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: CVA (2010, right distal MCA occlusion) Cardio/Vascular: Yes: AFIB, CHF (mild LV systolic dysunction, moderate RV systolic dysfunction), Hyperlipdemia, Pulmonary Hypertension, Other ( pericarditis 1980) Gastrointestinal: Yes: GERD, Hemorrhoids, Peptic Ulcer Disease Renal/: Yes: BPH Musculoskeletal: Yes: Osteoarthritis Endocrine: Yes: Hypothyroidism - Past Surgical History Past Surgical History: Yes: Colectomy (partial colectomy for volvulus), Hernia Repair (Left repair 10/2014), Joint Replacement (bilateral THRs 1991), Prostatectomy (1979), Vasectomy (1979) - Alcohol/Substance Use Hx Alcohol Use: No History of Substance Use: reports: None - Smoking History Smoking history: Never smoked Have you smoked in the past 12 months: No - Social History ADL: Independent Home Medications - Allergies Allergies/Adverse Reactions: Allergies Allergy/AdvReac Type Severity Reaction Status Date / Time No Known Allergies Allergy Verified 08/05/18 11:13 - Home Medications Home Medications: Ambulatory Orders Ascorbic Acid [Vitamin C] 500 mg PO DAILY 08/05/18 Atorvastatin Ca [Lipitor] 0 mg PO ASDIR 08/05/18 Beta-Carotene(A) W-C and E/Min [Ocuvite (Nf)] 1 tab PO DAILY 08/05/18 Dabigatran Etexilate Mesylate [Pradaxa -] 150 mg PO BID 08/05/18 Famotidine [Pepcid] 40 mg PO ASDIR 08/05/18 Ferrous Sulfate [Feosol] 325 mg PO DAILY 08/05/18 Furosemide [Lasix] 80 mg PO BID 08/05/18 Levothyroxine [Synthroid -] 100 mcg PO DAILY 08/05/18 Metolazone [Zaroxolyn -] 2.5 mg PO DAILY 08/05/18 Metoprolol Tartrate [Lopressor -] 25 mg PO BID 08/05/18 Potassium Chloride 20 meq PO ASDIR 08/05/18 Potassium Chloride 40 meq PO BID 08/05/18 Family Disease History - Family Disease History Family Disease History: Heart Disease: Father (heart disease 72), Other: Mother (ca pancreas 89) Nephrology Consult - Height Height: 5 ft 8 in - Weight Weight: 160 lb 4.8 oz - BMI Body Mass Index (BMI): 24.3 - Lab Results CBC,BMP: CBC, BMP 08/05/18 11:47 08/05/18 11:47 Anion Gap: Anion Gap Anion Gap 14 MMOL/L (8-16) 08/05/18 11:47 - Physical Examination Vital Signs: Vital Signs Temperature 97.4 F L 08/05/18 16:44 Pulse Rate 72 08/05/18 16:44 Respiratory Rate 19 08/05/18 16:44 Blood Pressure 129/73 08/05/18 16:44 O2 Sat by Pulse Oximetry (%) 100 08/05/18 17:01 Constitutional: Yes: Well Nourished, No Distress, Calm Eyes: Yes: WNL, Conjunctiva Clear, EOM Intact HENT: Yes: WNL, Atraumatic, Normocephalic Neck: Yes: WNL, Supple, Trachea Midline Cardiovascular: Yes: WNL, Bradycardia Respiratory: Yes: WNL, Regular, CTA Bilaterally Gastrointestinal: Yes: WNL Edema: No Assessment/Plan azotemia very likely julieth he received 500 cc ns earlier he may need more he has no symptoms of chf he has underlying CKD baseline creat 1.1 in 05/2018 symptomatic bradycardia being managed with cardiac monitoring and plan- follow bmp later monitor urine output give iv fluids if urine output lags less than 20 cc per hour
[2018-08-05] MEDS ORDERED: ALPRAZolam 0.25 MG TABLET PO PRN (18:52)
[2018-08-05 18:55] LABS: PHOSPHOROUS 4.4 mg/dL (2.5-4.9)
[2018-08-05 19:05] LABS: URINE CREATININE < 13.0 mg/dL (2-36); URINE UREA NITROGEN 251 MG/DL (350-1000)
--- NOTE | 2018-08-05 19:08 | CON.CARD ---
Consult Consult Specialty:: cardiology Reason for Consultation:: symptomatic bradycardia - History of Present Illness Chief Complaint: Alert and oriented, but lightheaded and "woozy" with parked sinus pauses History of Present Illness: 87 y/o male with hx of a-fib, feeling weak for last 2-3 weeks. Hx of slow heart rate before and had medication changed. No chest pain, mild SOB with walking. No fever or chills. No back pain. Had a fall about 1 1/2 weeks ago. No LOC or headache. No N/V/d/C. 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: CVA (2010, right distal MCA occlusion) Cardio/Vascular: Yes: AFIB, CHF (mild LV systolic dysunction, moderate RV systolic dysfunction), Hyperlipdemia, Pulmonary Hypertension, Other ( pericarditis 1980) Gastrointestinal: Yes: GERD, Hemorrhoids, Peptic Ulcer Disease Renal/: Yes: Renal Inusuff, BPH Heme/Onc: Yes: Anemia Psych: Yes: Anxiety Musculoskeletal: Yes: Osteoarthritis Endocrine: Yes: Hypothyroidism - Past Surgical History Past Surgical History: Yes: Colectomy (partial colectomy for volvulus), Hernia Repair (Left repair 10/2014), Joint Replacement (bilateral THRs 1991), Prostatectomy (1979), Vasectomy (1979) - Alcohol/Substance Use Hx Alcohol Use: No History of Substance Use: reports: None - Smoking History Smoking history: Never smoked Have you smoked in the past 12 months: No - Social History ADL: Independent Home Medications - Allergies Allergies/Adverse Reactions: Allergies Allergy/AdvReac Type Severity Reaction Status Date / Time No Known Allergies Allergy Verified 08/05/18 11:13 - Home Medications Home Medications: Ambulatory Orders Ascorbic Acid [Vitamin C] 500 mg PO DAILY 08/05/18 Atorvastatin Ca [Lipitor] 0 mg PO ASDIR 08/05/18 Beta-Carotene(A) W-C and E/Min [Ocuvite (Nf)] 1 tab PO DAILY 08/05/18 Dabigatran Etexilate Mesylate [Pradaxa -] 150 mg PO BID 08/05/18 Famotidine [Pepcid] 40 mg PO ASDIR 08/05/18 Ferrous Sulfate [Feosol] 325 mg PO DAILY 08/05/18 Furosemide [Lasix] 80 mg PO BID 08/05/18 Levothyroxine [Synthroid -] 100 mcg PO DAILY 08/05/18 Metolazone [Zaroxolyn -] 2.5 mg PO DAILY 08/05/18 Metoprolol Tartrate [Lopressor -] 25 mg PO BID 08/05/18 Potassium Chloride 20 meq PO ASDIR 08/05/18 Potassium Chloride 40 meq PO BID 08/05/18 Family Disease History - Family Disease History Family Disease History: Heart Disease: Father (heart disease 72), Other: Mother (ca pancreas 89) Review of Systems - Review of Systems Constitutional: reports: Weakness Cardiovascular: reports: Other (lightheaded when HR decreases markedly (for the past 2 weeks)) Musculoskeletal: reports: Muscle Weakness Neurological: reports: Weakness, Other Psychiatric: reports: Anxiety - Risk Factors Known Risk Factors: Yes: Age, Gender, Hypertension, Physical Inactivity, Other ( systolic CHF; significant RV disease; severe pulmonary HTN) Vital Signs: Vital Signs Temperature 97.4 F L 08/05/18 16:44 Pulse Rate 72 08/05/18 16:44 Respiratory Rate 19 08/05/18 16:44 Blood Pressure 129/73 08/05/18 16:44 O2 Sat by Pulse Oximetry (%) 100 08/05/18 17:01 - Other Data Labs, Other Data: CBC, BMP 08/05/18 11:47 08/05/18 11:47 INR, PTT INR 5.16 (0.82-1.09) H* D 08/05/18 12:35 Troponin, BNP 08/05/18 08/05/18 11:47 11:47 Troponin I 0.22 H D B-Natriuretic Peptide 1961.7 H Troponin, BNP 08/05/18 08/05/18 11:47 11:47 Troponin I 0.22 H D B-Natriuretic Peptide 1961.7 H Imaging - Results Chest X-ray: Image Reviewed (persisten atelectasis and ?fluid in right base) EKG: Image Reviewed (Idioventricular rhythm; RBBB) Problem List - Problems (1) Idioventricular rhythm Assessment/Plan: Hx AF; now with idioventricular rhythm, with HR varying from 30s-70s bpm, and 3- 4 second symptomatic pauses (pt observed to feel weak and disoriented with asystolic pauses). BP has remained stable. K+ WNL. TSH mildly elevated; f/u free T3 and T4; on levothyroxine ECHO (02/2018): mild-moderately reduced LVEF (40-45%); moderate biatrial enlargement; moderately severe RVE and moderate-severely reduced RVEF; mod- severe TR; moderate KY; mild AR. Plan: Fluids (bolus, then IV drip: pt with significantly elevated BUN/Cr); stop furosemide (on ?80 mg bid at home). External pacemaker: keep HR 40-50 bpm (higher may induce escape rhythm). IVP atropine 0.5-1 mg q 3-5 minutes prn. Pt has been on metoprolol (100 mg daily in Feb, 2018; reduced to 12.5 mg, then raised to 25 mg bid at home; last dose taken reportedly this morning). Cannot r/ o pt taking extra doses at home: give glucagon 5 mg IV, then IV drip. Addendum: Pt reportedly with more consistently slow HR, with increased asystolic duration when off external pacing and feelings of weakness and lightheadedness. Will transfer to [facility] for further evaluation; will likely require PPM. Case discussed with Dr. Vivek Stewart, EP at [facility], who will arrange transfer. Code(s): I44.2 - ATRIOVENTRICULAR BLOCK, COMPLETE (2) Weakness Code(s): R53.1 - WEAKNESS (3) RVF (right ventricular failure) Assessment/Plan: severe pulmonary HTN, with moderately severe RV size and reduction in RVEF. RBBB Code(s): I50.9 - HEART FAILURE, UNSPECIFIED (4) Atrial fibrillation Assessment/Plan: On metoprolol for HR control. On Pradaxa for anticoagulation. Code(s): I48.91 - UNSPECIFIED ATRIAL FIBRILLATION (5) Systolic CHF, chronic Assessment/Plan: Pt has been on metoprolol. Based on findings of profound bradycardia (last dose of metoprolol 25 mg bid taken this morning) and need for beta lauren (systoic HF; AF), pt will likely require PPM. Pt appears compliant to medications; it is unlikely he has beta lauren overdose, though this cannot be completely discounted. Stop furosemide (he has been on 80 mg bid; now with markedly elevated BUN/Cr). F/u electrolytes, BUN/Cr, Is and Os, daily weight. Code(s): I50.22 - CHRONIC SYSTOLIC (CONGESTIVE) HEART FAILURE (6) Supratherapeutic INR Assessment/Plan: INR > 5, a marked increase over previous admissions as recent as 02/2018. He has been on Pradaxa; this should be held presently, though unlikely the cause of the increase in INR. RV failure may be causing hepatic dysfunction. Code(s): R79.1 - ABNORMAL COAGULATION PROFILE (7) Hyperlipidemia Assessment/Plan: On statin; mild increase in AST. Code(s): E78.5 - HYPERLIPIDEMIA, UNSPECIFIED (8) Renal dysfunction Assessment/Plan: Marked increase in BUN/Cr since 02/2018 admission. Will give fluids (monitor carefully, in light of biventricular heart failure). Code(s): N28.9 - DISORDER OF KIDNEY AND URETER, UNSPECIFIED Assessment/Plan CCU time perusing chart, formulating plan: 80 minutes.
[2018-08-05] MEDS ORDERED: SODIUM CHLORIDE 250 ML IV STA (19:34)
[2018-08-05] MEDS ORDERED: SODIUM CHLORIDE 1,000 ML IV SCH (19:45)
[2018-08-05 20:25] LABS: MAGNESIUM 2.7 mg/dL (1.8-2.4)
--- NOTE | 2018-08-05 20:27 | PN ---
Progress Note (short form) - Note Progress Note: Spoke to 3D Artist, Dr. Lea. Patient will be transferred to [facility] for further assessment and management by EP, Dr. Stewart. Patient is an 87 year old male with a PMHx of HTN, HLD, Atrial fibrillation on Pradaxa, Systolic CHF, Severe TR, hypothyroidism who presented to the ED complaining of a two week history of lethargy and weakness that progressively worsened in the last 4 days, which prompted this hospital visit. Patient's family at bedside and report that he was very last week to the point he fell down but state he did not hit his head. In the ED, patient was found to have a HR in the 30's but with stable BP. On cardiac monitoring, patient had several episodes of pauses lasting around 4 seconds with associated symptoms of dizziness, weakness, and lightheadedness. Patient's family report he is currently taking Lopressor 25mg at home with his last dose given this morning (08/05/18). Patient was placed on External pacemaker with a rate 50. Patient also found to have an INR >5 and GILMER of creatinine 2.4, BUN >60 and hypovolemic. On Cardiac monitoring patient having idioventricular rhythm, absent P-wave and steady ventricular rhythm. Heart rate is labile and fluctuates between 50-60's and when the external pacemakers are taken off, he goes into asystole for around 4 seconds with symptoms of dizziness. Last ECHO taken 02/2018, which revealed LV dysfunction with EF of 40-45%, moderate to severe right ventricular dilation, moderate to severe righ systolic dysfunction, moderately dilated bi-atrial, severe TR. VITALS: BP: 117/56 HR: 50-60's TEMP: 98.6 02 saturation: 96% on RA PHYSICAL EXAM: GENERAL: Awake, alert, oriented to person and place. LUNGS: Decreased sound at bases. Clear to auscultation bilaterally in the upper lobes. HEART: Regular rate and rhythm, normal S1 and S2 Holosystolic blowing murmur ABDOMEN: Soft, nontender, not distended, normoactive bowel sounds LOWER EXTREMITIES: Chronic venous stasis dermatitis rash. No peripheral edema NEUROLOGICAL: Non-Focal PLAN: -Transfer initiated by Dr. Lea to [facility] with accepting physician, Dr. Stewart, JAN. Patient will be evaluated if patient requires transvenous pacemaker. With his last ECHO revealing severe dilated and reduced right ventricular and atrium, as well as history of A.Fib and systolic CHF, patient will need to be monitored at tertiary center with an EP on staff. Family is in agreement and requested to notify them by phone once he is transferred. -Patient currently stable at bed and sleeping. -If patient was to become bradycardic and symptomatic, will give Atropine 0.5mg and possible Glucagon. -250cc bolus given as patient has significantly elevated BUN/Cr
[2018-08-05] MEDS ORDERED: SODIUM CHLORIDE 0.9% 1000 ML INFUS.BAG IV SCH (21:00)
[2018-08-05] MEDS ORDERED: ATORVASTATIN CA 10 MG TABLET (FP) PO SCH (22:00)
[2018-08-05] MEDS ORDERED: DABIGATRAN ETEXILATE MESYLATE 75 MG CAPSULE PO SCH (22:00)
[2018-08-05] MEDS ORDERED: CHLORHEXIDINE GLUCONATE 4% CLEANSER FOR DECOLONIZATION TP SCH (22:00)
[2018-08-05] MEDS ORDERED: MUPIROCIN 2% TOPICAL OINTMENT FOR DECOLONIZATION NS SCH (22:00)
[2018-08-06 00:38] VITALS: BP 111/55; PULSE 65; TEMP 98.1
--- NOTE | 2018-08-06 06:37 | DS ---
Physical Exam: SUBJECTIVE: Patient seen and examined OBJECTIVE: Vital Signs Period Temp Pulse Resp BP Sys/Servin Pulse Ox Last 24 Hr 97.3 F-98.1 F 31-74 16-20 94-129/48-79 97-100 PHYSICAL EXAM GENERAL: The patient is awake, alert, and fully oriented, in no acute distress. HEAD: Normal with no signs of trauma. EYES: PERRL, extraocular movements intact, sclera anicteric, conjunctiva clear. ENT: Ears normal, nares patent, oropharynx clear without exudates, moist mucous membranes. NECK: Trachea midline, full range of motion, supple. LUNGS: Breath sounds equal, clear to auscultation bilaterally, no wheezes, no crackles, no accessory muscle use. HEART: Regular rate and rhythm, S1, S2 without murmur, rub or gallop. ABDOMEN: Soft, nontender, nondistended, normoactive bowel sounds, no guarding, no rebound, no hepatosplenomegaly, no masses. EXTREMITIES: 2+ pulses, warm, well-perfused, no edema. NEUROLOGICAL: Cranial nerves II through XII grossly intact. Normal speech, gait not observed. PSYCH: Normal mood, normal affect. SKIN: Warm, dry, normal turgor, no rashes or lesions noted. LABS Laboratory Results - last 24 hr 08/05/18 08/05/18 08/05/18 11:47 11:47 11:47 WBC 3.3 L RBC 3.26 L Hgb 11.2 L Hct 33.1 L MCV 101.4 H MCH 34.2 H MCHC 33.7 RDW 16.1 H Plt Count 168 MPV 9.0 Absolute Neuts (auto) 2.6 Neutrophils % 75.8 Lymphocytes % 15.4 D Monocytes % 7.5 Eosinophils % 0.8 Basophils % 0.5 PT with INR INR PTT (Actin FS) Sodium 135 L Potassium 4.3 D Chloride 97 L Carbon Dioxide 24 D Anion Gap 14 BUN 68 H Creatinine 2.4 H Creat Clearance w eGFR 25.74 Random Glucose 136 H D Lactic Acid Calcium 9.1 Phosphorus Magnesium Total Bilirubin 1.8 H AST 48 H ALT 23 Alkaline Phosphatase 126 H Creatine Kinase Creatine Kinase Index CK-MB (CK-2) Troponin I 0.22 H D B-Natriuretic Peptide 1961.7 H Total Protein 7.6 Albumin 4.0 TSH 5.86 H D Urine Color Urine Appearance Urine pH Ur Specific [place] Urine Protein Urine Glucose (UA) Urine Ketones Urine Blood Urine Nitrite Urine Bilirubin Urine Urobilinogen Ur Leukocyte Esterase Ur Random Sodium Ur Random Potassium Ur Random Chloride Urine Creatinine 08/05/18 08/05/18 08/05/18 11:47 12:08 12:35 WBC RBC Hgb Hct MCV MCH MCHC RDW Plt Count MPV Absolute Neuts (auto) Neutrophils % Lymphocytes % Monocytes % Eosinophils % Basophils % PT with INR Cancelled 56.0 H INR Cancelled 5.16 H* D PTT (Actin FS) Cancelled Sodium Potassium Chloride Carbon Dioxide Anion Gap BUN Creatinine Creat Clearance w eGFR Random Glucose Lactic Acid Calcium Phosphorus Magnesium Total Bilirubin AST ALT Alkaline Phosphatase Creatine Kinase Creatine Kinase Index CK-MB (CK-2) Troponin I B-Natriuretic Peptide Total Protein Albumin TSH Urine Color Yellow Urine Appearance Clear Urine pH 7.0 Ur Specific [place] 1.015 Urine Protein Negative Urine Glucose (UA) Negative Urine Ketones Negative Urine Blood Negative Urine Nitrite Negative Urine Bilirubin Negative Urine Urobilinogen 0.2 Ur Leukocyte Esterase Negative Ur Random Sodium Ur Random Potassium Ur Random Chloride Urine Creatinine 08/05/18 08/05/18 08/05/18 17:15 17:15 17:15 WBC RBC Hgb Hct MCV MCH MCHC RDW Plt Count MPV Absolute Neuts (auto) Neutrophils % Lymphocytes % Monocytes % Eosinophils % Basophils % PT with INR INR PTT (Actin FS) Sodium Potassium Chloride Carbon Dioxide Anion Gap BUN Creatinine Creat Clearance w eGFR Random Glucose Lactic Acid 1.0 Calcium Phosphorus 4.4 Magnesium 2.7 H Total Bilirubin AST ALT Alkaline Phosphatase Creatine Kinase 168 Creatine Kinase Index 2.5 CK-MB (CK-2) 4.3 H Troponin I 0.05 B-Natriuretic Peptide Total Protein Albumin TSH Urine Color Urine Appearance Urine pH Ur Specific [place] Urine Protein Urine Glucose (UA) Urine Ketones Urine Blood Urine Nitrite Urine Bilirubin Urine Urobilinogen Ur Leukocyte Esterase Ur Random Sodium Ur Random Potassium Ur Random Chloride Urine Creatinine 08/05/18 08/05/18 08/05/18 18:00 18:00 18:00 WBC RBC Hgb Hct MCV MCH MCHC RDW Plt Count MPV Absolute Neuts (auto) Neutrophils % Lymphocytes % Monocytes % Eosinophils % Basophils % PT with INR INR PTT (Actin FS) Sodium Potassium Chloride Carbon Dioxide Anion Gap BUN Creatinine Creat Clearance w eGFR Random Glucose Lactic Acid Calcium Phosphorus Magnesium Total Bilirubin AST ALT Alkaline Phosphatase Creatine Kinase Creatine Kinase Index CK-MB (CK-2) Troponin I B-Natriuretic Peptide Total Protein Albumin TSH Urine Color Urine Appearance Urine pH Ur Specific [place] Urine Protein Urine Glucose (UA) Urine Ketones Urine Blood Urine Nitrite Urine Bilirubin Urine Urobilinogen Ur Leukocyte Esterase Ur Random Sodium 82 82 Ur Random Potassium 54.0 Ur Random Chloride 117 Urine Creatinine < 13.0 08/05/18 18:00 WBC RBC Hgb Hct MCV MCH MCHC RDW Plt Count MPV Absolute Neuts (auto) Neutrophils % Lymphocytes % Monocytes % Eosinophils % Basophils % PT with INR INR PTT (Actin FS) Sodium Potassium Chloride Carbon Dioxide Anion Gap BUN Creatinine Creat Clearance w eGFR Random Glucose Lactic Acid Calcium Phosphorus Magnesium Total Bilirubin AST ALT Alkaline Phosphatase Creatine Kinase Creatine Kinase Index CK-MB (CK-2) Troponin I B-Natriuretic Peptide Total Protein Albumin TSH Urine Color Urine Appearance Urine pH Ur Specific [place] Urine Protein Urine Glucose (UA) Urine Ketones Urine Blood Urine Nitrite Urine Bilirubin Urine Urobilinogen Ur Leukocyte Esterase Ur Random Sodium Ur Random Potassium Ur Random Chloride Urine Creatinine < 13.0 HOSPITAL COURSE: Date of Admission:08/05/18 Date of Discharge: 08/06/18 86 year-old male with a PMH significant for HTN, HLD, afib on dagitriban, biventricular systolic heart failure, severe TR, CVA (2010), right pleural effusion s/p thoracentesis (2014), and hypothyroidism. Atrial fibrillation with slow ventricular response --now in idioventricular ryhthm with 3-4 second symptomatic pauses, HR 30s- 70s --BP has remained stable --last dose metoprolol 25mg this morning --presently being externally paced, rate 50, MA 46 --hold dagitriban, metoprolol --discussed with Dr. Lea and resident ICU team Acute kidney injury Azotemia --Cr 2.4 on admission, baseline 1.1 --given 1L fluids in ED; need to be cautious with fluids given CHF --has been on lasix and metazalone --hold diuretics for now, hold IV fluids --discussed with Dr. Ryan --monitor UOP --urine studies Biventricular systolic heart failure --02/23 Echo: EF 40-45%; RV moderately to severely reduced; BLAE; mild MR; moderate to severe TR; mild AI; moderate PI --externally paced h/o CVA Right pleural effusion --chronic, stable Hypothyroidism --TSH 5.86, increase levothyroxine to 112mcg --free T3, free T4 pending Hypertension --BP has been stable; hold anti-hypertensives Transfer to [facility] for further evaluation; will likely require PPM Minutes to complete discharge: 35 Discharge Summary Reason For Visit: SYMPTOMATIC BRADYCARDIA Condition: Stable - Instructions Referrals: Brian Polo MD [Primary Care Provider] - Disposition: TRANSFER ACUTE CARE/OTHER HOSP - Home Medications Comprehensive Discharge Medication List: Ambulatory Orders Ascorbic Acid [Vitamin C] 500 mg PO DAILY 08/05/18 Atorvastatin Ca [Lipitor] 0 mg PO ASDIR 08/05/18 Beta-Carotene(A) W-C and E/Min [Ocuvite (Nf)] 1 tab PO DAILY 08/05/18 Dabigatran Etexilate Mesylate [Pradaxa -] 150 mg PO BID 08/05/18 Famotidine [Pepcid] 40 mg PO ASDIR 08/05/18 Ferrous Sulfate [Feosol] 325 mg PO DAILY 08/05/18 Furosemide [Lasix] 80 mg PO BID 08/05/18 Levothyroxine [Synthroid -] 100 mcg PO DAILY 08/05/18 Metolazone [Zaroxolyn -] 2.5 mg PO DAILY 08/05/18 Metoprolol Tartrate [Lopressor -] 25 mg PO BID 08/05/18 Potassium Chloride 20 meq PO ASDIR 08/05/18 Potassium Chloride 40 meq PO BID 08/05/18 This patient is new to me today: Yes Date on this admission: 08/08/18 Emergency Visit: Yes ED Registration Date: 08/05/18 Care time: The patient presented to the Emergency Department on the above date and was hospitalized for further evaluation of their emergent condition. Critical Care patient: Yes Total Critical Care Time (in minutes): 90 Critical Care Statement: The care of this patient involved high complexity decision making to prevent further life threatening deterioration of the patient 's condition and/or to evaluate & treat vital organ system(s) failure or risk of failure. - Discharge Referral Referred to [facility] No
[2018-08-06] MEDS ORDERED: LEVOTHYROXINE NA 112 MCG TABLET (FP) PO SCH (07:00)
[2018-08-06] MEDS ORDERED: LEVOTHYROXINE NA 100 MCG TABLET (FP) PO SCH (07:00)
[2018-08-06] MEDS ORDERED: PANTOPRAZOLE 40 MG TABLET (FP) PO SCH (10:00)
[2018-08-06] MEDS ORDERED: METOLAZONE 2.5 MG TABLET (FP) PO SCH (10:00)
--- NOTE | 2018-08-07 16:15 | EKG ---
Test Reason : Blood Pressure : / mmHG Vent. Rate : 071 BPM Atrial Rate : 066 BPM P-R Int : 000 ms QRS Dur : 166 ms QT Int : 522 ms P-R-T Axes : 000 -07 -18 degrees QTc Int : 567 ms POOR DATA QUALITY, INTERPRETATION MAY BE ADVERSELY AFFECTED UNDETERMINED RHYTHM RIGHT BUNDLE BRANCH BLOCK ABNORMAL ECG Confirmed by MD DOM, VENU ([id number]) on 08/07/2018 4:14:50 PM Referred By: Confirmed By:VENU FERNANDES MD
== END 2018-08-06 00:15 | disposition short-term general hospital (02) | DRG 309 ==
LOC: FER 11:07 → UNDOADMIN 14:30 → JICU 14:30
PROVIDERS: ADMIT Internal Medicine; ATTEND Nurse Practitioner Acute Care
DX: I44.2 Atrioventricular block, complete (principal); I50.22 Chronic systolic (congestive) heart failure; N17.9 Acute kidney failure, unspecified; R00.1 Bradycardia, unspecified; R74.8 Abnormal levels of other serum enzymes; E78.5 Hyperlipidemia, unspecified; I48.91 Unspecified atrial fibrillation; E03.9 Hypothyroidism, unspecified; I07.1 Rheumatic tricuspid insufficiency; I11.0 Hypertensive heart disease with heart failure; K21.9 Gastro-esophageal reflux disease without esophagitis; K64.9 Unspecified hemorrhoids; N40.0 Benign prostatic hyperplasia without lower urinary tract symptoms; F41.9 Anxiety disorder, unspecified; M19.90 Unspecified osteoarthritis, unspecified site; R53.1 Weakness; I27.20 Pulmonary hypertension, unspecified; N28.9 Disorder of kidney and ureter, unspecified; D64.9 Anemia, unspecified; R79.1 Abnormal coagulation profile; Z96.643 Presence of artificial hip joint, bilateral; Z85.828 Personal history of other malignant neoplasm of skin; Z87.11 Personal history of peptic ulcer disease; Z86.73 Personal history of transient ischemic attack (TIA), and cerebral infarction without residual deficits
CPT/HCPCS: 36415; 71045-TC-FY; 80053; 81003; 82436; 82550; 82553; 82570; 83605; 83735; 83880; 84100; 84133; 84300; 84443; 84484; 85025; 85610; 87086; 93005; 93010; 99284-25; J7030

== ENCOUNTER 2018-08-27 10:28 | Inpatient (IN) | payer OTHER ==
--- NOTE | 2018-08-27 10:46 | PDOC ---
Attending Attestation - Resident Resident Name: Rayray Joyce - ED Attending Attestation I have performed the following: I have examined & evaluated the patient, The case was reviewed & discussed with the resident, I agree w/resident's findings & plan, Exceptions are as noted - HPI HPI: 08/27/18 11:24 87y M hx of afib (on pradaxa, s/p PM placed approx 2 weeksago), htn, hl, chf, cva, hypothyroidism presents for altered mental status. Per family the patient wasn't himself this weekend, on Monday he was doing some paperwork and got very frustrated doing a task that usually does not give many trouble. On Monday the patient states he wasn't feeling well although he could not specifically verbalize what is bothering him. The patient's was feeling worse today and the family noticed that his speech was not as fluid as it usually is brought the patient to the ER for evaluation. She denies any headache, chest pain, palpitations, lightheadedness, vision changes, abdominal pain, nausea, vomiting , increased leg swelling. On exam the patient is in no acute distress GENERAL: The patient is awake, alert, and oriented x 2, Nontoxic - in no acute distress. HEAD: Normocephalic, atraumatic. EYES: extraocular movements intact, sclera anicteric, conjunctiva clear. ENT: Normal voice, Moist mucous membranes. NECK: Normal range of motion, supple LUNGS: Breath sounds equal, clear to auscultation bilaterally. No wheezes, no rhonchi, no rales. HEART: Regular rate and rhythm, normal S1 and S2 without murmur, rub or gallop. ABDOMEN: Soft, nontender, normoactive bowel sounds. No guarding, no rebound. . No CVA tenderness EXTREMITIES: Normal range of motion, no edema. No clubbing or cyanosis. No cords, erythema, or tenderness. NEUROLOGICAL: +no facial assymetry at rest, but R face was weak. +mild word finding difficulty PSYCH: Normal mood, normal affect. SKIN: Warm, Dry, normal turgor, suspect CVA event vs metabolic derangement, occult infection not TPA candidate as has bee ngoing on fro a few days will obtain blood work, ct head will give ASA if no bleed - Physicial Exam PE: 08/31/18 17:07 see above - Medical Decision Making 08/27/18 14:[address] is negative for acute process. blood work was reviewed it was noted to have anemia with a 3. drop in his hemoglobin compared with prior. The patient did have evidence of brittany blood on rectal exam without stool. Due to concern of possible GI bleed deferred Pradaxa Will dw neuro and GI will admit for further management for CVA and Anemia/possible GIB Heart Score/ECG Review - ECG Impressions Comment:: 08/27/18 14:28 Twelve-lead EKG was performed and reviewed by me. Rate of 89 Irregularly irregular Right bundle-branch block
--- NOTE | 2018-08-27 11:37 | PDOC ---
History of Present Illness <Patrice Ch - Last Filed: 08/29/18 11:24> - General History Source: Patient, Family - History of Present Illness Initial Comments: 08/27/18 11:39 Patient is an 87 year old male with significant past medical history of HTN, HLD , A.Fib (on Pradaxa), biventricular systolic heart failure, CVA (2010), and hypothyroidism, presented with weakness for the past 2 days. Patient was admitted a month ago for weakness and bradycardia, and was subsequently transferred to [place] for pacemaker placement. As per patient and family, patient had been well and alert for the past 2 weeks since he had the pacemaker placed. Three days prior, patient was noted to have hypokalemia of 3.2 and was given K-dur 80meq by PCP. Yesterday, patient reported that he was not feeling well, unable to specifically describe his symptoms. He reports weakness, requiring more help moving around. He was also noted to have some difficulty finding words, but otherwise denies numbness or tingling, fevers, chills, headache, dizziness, chest pain, SOB, abdominal pain, diarrhea, urinary symptoms. As per daughter, patient also told her he had some blood in his stool to which he denied today. 08/27/18 13:08 <Liberty Kerr - Last Filed: 08/30/18 17:52> - General Chief Complaint: Weakness Stated Complaint: WEAKNESS Time Seen by Provider: 08/27/18 10:31 Past History <Patrice Ch - Last Filed: 08/29/18 11:24> - Travel Traveled outside of the country in the last 30 days: No Close contact w/someone who was outside of country & ill: No - Past Medical History Anemia: No Asthma: No Cancer: Yes (Skin) Cardiac Disorders: Yes (atrial fibrillation) CVA: Yes ([id number] weakness) COPD: No CHF: Yes Dementia: No Diabetes: No GI Disorders: No Disorders: No HTN: No Hypercholesterolemia: Yes Liver Disease: No Seizures: No Thyroid Disease: Yes - Surgical History Abdominal Surgery: Yes (Colon Resection) Appendectomy: No Cardiac Surgery: No Cholecystectomy: No GI Surgery: Yes (large intestine) Lung Surgery: Yes (Thorocentesis 10/2014) Neurologic Surgery: No Orthopedic Surgery: Yes (MAMIE HIP REPLACEMENT) - Suicide/Smoking/Psychosocial Hx Smoking History: Never smoked Have you smoked in the past 12 months: No Information on smoking cessation initiated: No Hx Alcohol Use: No Drug/Substance Use Hx: No Substance Use Type: None Hx Substance Use Treatment: No <Liberty Kerr - Last Filed: 08/30/18 17:52> - Past Medical History Allergies/Adverse Reactions: Allergies Allergy/AdvReac Type Severity Reaction Status Date / Time No Known Allergies Allergy Verified 08/27/18 10:41 Home Medications: Ambulatory Orders Ascorbic Acid [Vitamin C] 500 mg PO DAILY 08/05/18 Atorvastatin Ca [Lipitor] 10 mg PO ASDIR 08/05/18 Beta-Carotene(A) W-C and E/Min [Ocuvite (Nf)] 1 tab PO DAILY 08/05/18 Dabigatran Etexilate Mesylate [Pradaxa -] 150 mg PO BID 08/05/18 Famotidine [Pepcid] 40 mg PO ASDIR 08/05/18 Ferrous Sulfate [Feosol] 325 mg PO DAILY 08/05/18 Furosemide [Lasix] 80 mg PO BID 08/05/18 Levothyroxine [Synthroid -] 100 mcg PO DAILY 08/05/18 Metolazone [Zaroxolyn -] 2.5 mg PO DAILY 08/05/18 Metoprolol Tartrate [Lopressor -] 25 mg PO BID 08/05/18 Potassium Chloride 20 meq PO 5XD 08/05/18 Review of Systems - Review of Systems Constitutional: Yes: Weakness. No: Chills, Fever HEENTM: No: Blurred Vision, Recent change in vision, Double Vision Respiratory: No: Cough, Shortness of Breath Cardiac (ROS): No: Chest Pain, Lightheadedness ABD/GI: Yes: Blood Streaked Bowels. No: Abdominal Distended, Diarrhea Musculoskeletal: No: Joint Pain, Joint Swelling, Muscle Weakness Neurological: Yes: Weakness. No: Headache, Numbness, Tingling <Liberty Kerr - Last Filed: 08/30/18 17:52> *Physical Exam - Vital Signs Last Vital Signs Temp Pulse Resp BP Pulse Ox 98.4 F 15 L 20 111/77 100 08/29/18 06:00 08/29/18 09:45 08/29/18 06:00 08/29/18 09:45 08/28/18 20:16 <Patrice Ch - Last Filed: 08/29/18 11:24> - Vital Signs Last Vital Signs Temp Pulse Resp BP Pulse Ox 97.9 F 91 H 16 99/64 100 08/27/18 11:28 08/27/18 10:30 08/27/18 10:30 08/27/18 10:30 08/27/18 10:30 - Physical Exam General Appearance: Yes: Other (Awake, alert, oriented, in no acute distress) HEENT: positive: EOMI, ZAID, Normal ENT Inspection, Symmetrical, Other Neck: positive: Trachea midline, Normal Thyroid, Supple Respiratory/Chest: positive: Decreased Breath Sounds Cardiovascular: positive: Regular Rhythm, Regular Rate, S1, S2 Vascular Pulses: Dorsalis-Pedis (R): 2+, Doralis-Pedis (L): 2+ Gastrointestinal/Abdominal: positive: Normal Bowel Sounds, Soft. negative: Distended, Tenderness Rectal Exam: positive: normal rectal tone, heme positive stool. negative: hemorrhoids (+bright red blood on stool) Musculoskeletal: positive: Normal Inspection. negative: CVA Tenderness Extremity: positive: Pedal Edema, Erythema Neurologic: positive: Other (Neuro: +difficulty word finding, unable to recall 2 /3 words, speech intact, CN II-XII intact, motor 5/5 on all extremities, sensation intact, no dysmetria, gait not observed ) <Liberty Kerr - Last Filed: 08/30/18 17:52> ED Treatment Course - LABORATORY CBC & Chemistry Diagram: 08/29/18 05:30 08/29/18 05:30 - ADDITIONAL ORDERS Additional order review: 08/27/18 11:40 RBC 2.47 L MCV 98.9 H MCHC 32.9 RDW 17.1 H MPV 7.6 Neutrophils % 67.0 Lymphocytes % 24.2 D Monocytes % 7.1 Eosinophils % 0.6 Basophils % 1.1 - RADIOLOGY Radiology Studies Ordered: Category Date Time Status HEAD CT WITHOUT CONTRAST [CT] Stat CT Scan 08/27/18 11:21 Completed CHEST X-RAY PORTABLE* [RAD] Stat Radiology 08/27/18 11:22 Completed - Medications Given in the ED: ED Medications Discontinued Medications Generic Name Dose Route Start Last Admin Trade Name Pino PRN Reason Stop Dose Admin Aspirin 162 mg 08/27/18 13:29 08/27/18 14:29 Asa - PO 08/27/18 13:30 Not Given ONCE ONE Dabigatran 150 mg 08/27/18 13:28 08/27/18 14:28 Pradaxa - PO 08/27/18 13:29 Not Given ONCE ONE Lactated Ringer's 1,000 ml in 1,000 mls @ 42 mls/hr 08/27/18 19:00 08/27/18 22:38 Lactated Ringers Solution IV 42 mls/hr ASDIR NEIL Administration Dextrose/Sodium Chloride 20 meq in 1,000 mls @ 42 mls/hr 08/28/18 10:15 08/28 11:12 Dextrose 5%-Normal Saline+20 Meq Kcl - IV 42 mls/hr ASDIR NEIL Administration Potassium Chloride 10 meq in 100 mls @ 100 mls/hr 08/28/18 10:30 08/28/18 16: 22 Potassium Chloride 10 Meq Premix Ivpb - IVPB 08/28/18 13:29 100 mls/hr Q60M NEIL Administration Metoprolol Tartrate 5 mg 08/29/18 04:14 08/29/18 04:51 Lopressor Injection - IVPUSH 08/29/18 04:15 5 mg ONCE ONE Administration Metoprolol Tartrate 5 mg 08/29/18 09:33 08/29/18 09:45 Lopressor Injection - IVPUSH 08/29/18 09:34 5 mg ONCE ONE Administration Pantoprazole Sodium 40 mg 08/27/18 19:00 08/27/18 22:38 Protonix Iv IVPUSH 40 mg DAILY NEIL Administration Pantoprazole Sodium 40 mg 08/28/18 10:00 08/28/18 10:50 Protonix Iv IVPUSH 40 mg BID NEIL Administration Potassium Chloride 40 meq 08/27/18 13:29 08/27/18 14:00 K-Dur - PO 08/27/18 13:30 40 meq ONCE ONE Administration <Patrice Ch - Last Filed: 08/29/18 11:24> - LABORATORY CBC & Chemistry Diagram: 08/30/18 13:31 08/30/18 05:30 <Liberty Kerr - Last Filed: 08/30/18 17:52> Medical Decision Making - Medical Decision Making 08/27/18 12:12 Patient is an 87 year old male with significant past medical history of HTN, HLD , A.Fib (on Pradaxa), biventricular systolic heart failure, CVA (2010), and hypothyroidism, presented with generalized weakness for the past 2 days. Three days prior, patient was noted to have hypokalemia of 3.2 and was given K-dur 80meq by PCP. Yesterday, patient reported weakness, requiring more help moving around. He was also noted to have some difficulty finding words, but no problem speaking, otherwise denies numbness or tingling, fevers, chills, headache, dizziness, chest pain, SOB, abdominal pain, diarrhea, urinary symptoms. As per daughter, patient also told her he had some blood in his stool to which he denied today. General: awake, alert, oriented x2, in no acute distress HEENT: no signs of head trauma, PERRLA, EOMI, sclerae anicteric, Neck: Supple, trachea midline Cardio: Regular rate and rhythm, Pulmo: Decreased breath sounds on bilateral bases GI:Soft, nontender, nondistended, NABS BHAVIK:+bright red blood on finger, no stool noted, no mass or fissures, no external hemorrhoids palpated Neuro: +difficulty word finding, unable to recall 2/3 words, speech intact, CN II-XII intact, motor 5/5 on all extremities, sensation intact, no dysmetria, gait not observed Lower extremities: +erythema, swollen, nontender RLE>LLE A> 1)altered mental status, may be 2/2 electrolyte disturbance vs infection vs CVA 2)bright red blood per rectum, likely UGIB vs LGIB P> CT scan of head without contrast CBC, CMP UA EKG CXR 08/27/18 13:02 H/H- 06/01.4 EKG - Atrial fibrillation CXR - moderate right pleural effusion with right basilar atelectasis Head cT - Chronic infarcts in left external capsule. No definite acute intracranial pathology. 08/27/18 13:34 K-dur 40meq 08/27/18 13:[address] Bueno. Will come to evaluate patient. 08/27/18 16:16 Patient admitted. <Liberty Kerr Last Filed: 08/30/18 17:52> *DC/Admit/Observation/Transfer <Patrice Ch - Last Filed: 08/29/18 11:24> - Discharge Dispostion Decision to Admit order: Yes <UshaLiberty - Last Filed: 08/30/18 17:52> Diagnosis at time of Disposition: Altered mental status Qualifiers: Altered mental status type: transient alteration of awareness Qualified Code(s) : R40.4 - Transient alteration of awareness - Discharge Dispostion Condition at time of disposition: Stable NIH Stroke Scale - Initial Evaluation Ask patient the month and their age: Answers both correctly Best gaze (horizontal eye movement): Normal Visual field testing: No visual field loss Facial paresis (Show teeth/raise eyebrows/close eyes tight): Minor paralysis ( flattened nasolabial fold, asymmetry on smiling) Limb Ataxia: No ataxia Sensory(Use pinprick test arms,legs,trunk,face/side to side): Normal Extinction and Inattention: No abnormality <Patrice Ch - Last Filed: 08/29/18 11:24> - Last Known Well Date/Time & Onset Date Last Known Well: 08/25/18 Time Last Known Well: 07:00 - Initial Evaluation Level of consciousness: Alert Ask patient to open & close eyes; make fist and let go: Obeys both correctly Motor Function: Left Arm: Normal Motor Function: Right Arm: Normal (extends arm 90 (or 45) degrees for 10 seconds without drift Motor Function: Left Leg: Normal (extends leg 30 degrees for 5 seconds without drift) Motor Function: Right Leg: Normal (extends leg 30 degrees for 5 seconds without drift) Best language (Describe picture, name items, read sentences): Mild to moderate aphasia Dysarthria (read several words): Normal articulation <ChitoIrwinLiberty - Last Filed: 08/30/18 17:52> tPA Exclusion Checklist 0-3hr - Time Elapsed Date last known well: 08/25/18 Time last known well: 07:00 Elaspsed time: 5 Day(s) and 10 Hour(s) and 49 Minutes - Thrombolytic Therapy Candidate Is the patient eligible for Thrombolytic Therapy?: No - Ineligibility reason(s) Reasons No tPA given: Outside of window - delayed arrival <Liberty Kerr - Last Filed: 08/30/18 17:52>
[2018-08-27 11:48] LABS: URINE APPEARANCE CLEAR; URINE BILIRUBIN NEGATIVE (<2.0 mg/dL); URINE COLOR STRAW; URINE GLUCOSE (UA) NEGATIVE (NEGATIVE); URINE KETONE NEGATIVE (NEGATIVE); URINE LEUK ESTERASE NEGATIVE (NEGATIVE); URINE NITRITE NEGATIVE (NEGATIVE); URINE PROTEIN NEGATIVE (NEGATIVE); URINE UROBILINOGEN NEGATIVE mg/dL (0.2-1.0)
[2018-08-27 12:04] LABS: BASO % 1.1 % (0-2.0); EOS % 0.6 % (0-4.5); HEMATOCRIT 24.4 % (35.4-49); LYMPH % 24.2 % (8-40); MCH 32.5 pg (25.7-33.7); MCHC 32.9 g/dl (32.0-35.9); MEAN CELL VOLUME 98.9 fl (80-96); MEAN PLT VOLUME 7.6 fl (7.5-11.1); MONO % 7.1 % (3.8-10.2); PLATELET COUNT 176 K/MM3 (134-434); RBC 2.47 M/mm3 (4.00-5.60); RDW 17.1 % (11.9-15.9); WHITE BLOOD COUNT 3.5 K/mm3 (4.0-10.0)
[2018-08-27 12:19] LABS: INR 1.74 (0.83-1.09); PROTHROMBIN TIME (PATIENT) 20.6 SEC (9.7-13.0)
[2018-08-27 13:11] LABS: ALK PHOS 122 U/L (45-117); ANION GAP 12 MMOL/L (8-16); BILIRUBIN,TOTAL 0.7 mg/dL (0.2-1); BLOOD UREA NITROGEN 51 mg/dL (7-18); CALCIUM 8.2 mg/dL (8.5-10.1); CHLORIDE 100 mmol/L (98-107); CO2 29 mmol/L (21-32); CREATININE 1.3 mg/dL (0.55-1.3); GLUCOSE,RANDOM 105 mg/dL (74-106); POTASSIUM 3.2 mmol/L (3.5-5.1); SGOT/AST 43 U/L (15-37); SGPT/ALT 22 U/L (13-61); SODIUM 141 mmol/L (136-145); TOT PROT 6.6 g/dl (6.4-8.2)
[2018-08-27] MEDS ORDERED: DABIGATRAN ETEXILATE MESYLATE 150 MG CAPSULE PO ONE (13:28)
[2018-08-27] MEDS ORDERED: POTASSIUM CHLORIDE TABS 20 MEQ TABLET.ER (FP) PO ONE ×2 (13:29→14:06)
[2018-08-27] MEDS ORDERED: ASPIRIN 81 MG CHEWABLE TABLETS PO ONE (13:29)
--- NOTE | 2018-08-27 14:10 | CON.NEURO ---
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 Patient is under the care of Dr. Brian Iverson. Patient 3 weeks ago came into the hospital had an episode of weakness was diagnosed with bradycardia was transferred to [facility] where he had a pacemaker placed. No report of any recent travel no head trauma. I met the patient in the emergency room. Patient was not a candidate for TPA. 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: Yes: CVA (2010, right distal MCA occlusion) Cardio/Vascular: Yes: AFIB, CHF (mild LV systolic dysunction, moderate RV systolic dysfunction), Hyperlipdemia, Pulmonary Hypertension, Other ( pericarditis 1980) Gastrointestinal: Yes: GERD, Hemorrhoids, Peptic Ulcer Disease Renal/: Yes: Renal Inusuff, BPH Psych: Yes: Anxiety Musculoskeletal: Yes: Osteoarthritis Endocrine: Yes: Hypothyroidism - Past Surgical History Past Surgical History: Yes: Colectomy (partial colectomy for volvulus), Hernia Repair (Left repair 10/2014), Joint Replacement (bilateral THRs 1991), Prostatectomy (1979), Vasectomy (1979) - Alcohol/Substance Use Hx Alcohol Use: No History of Substance Use: reports: None - Smoking History Smoking history: Never smoked Have you smoked in the past 12 months: No - Social History ADL: Independent Home Medications - Allergies Allergies/Adverse Reactions: Allergies Allergy/AdvReac Type Severity Reaction Status Date / Time No Known Allergies Allergy Verified 08/27/18 10:41 - Home Medications Home Medications: Ambulatory Orders Ascorbic Acid [Vitamin C] 500 mg PO DAILY 08/05/18 Atorvastatin Ca [Lipitor] 0 mg PO ASDIR 08/05/18 Beta-Carotene(A) W-C and E/Min [Ocuvite (Nf)] 1 tab PO DAILY 08/05/18 Dabigatran Etexilate Mesylate [Pradaxa -] 150 mg PO BID 08/05/18 Famotidine [Pepcid] 40 mg PO ASDIR 08/05/18 Ferrous Sulfate [Feosol] 325 mg PO DAILY 08/05/18 Furosemide [Lasix] 80 mg PO BID 08/05/18 Levothyroxine [Synthroid -] 100 mcg PO DAILY 08/05/18 Metolazone [Zaroxolyn -] 2.5 mg PO DAILY 08/05/18 Metoprolol Tartrate [Lopressor -] 25 mg PO BID 08/05/18 Potassium Chloride 0 meq PO BID 08/05/18 Family Disease History - Family Disease History Family History: Unable to Obtain Family Disease History: Heart Disease: Father (heart disease 72), Other: Mother (ca pancreas 89) Review of Systems - Review of Systems Constitutional: reports: No Symptoms Eyes: reports: No Symptoms HENT: reports: No Symptoms Physical Exam-Neuro Vital Signs: Vital Signs Temperature 97.2 F L 08/27/18 14:00 Pulse Rate 106 H 08/27/18 14:00 Respiratory Rate 18 08/27/18 14:00 Blood Pressure 98/61 08/27/18 14:00 O2 Sat by Pulse Oximetry (%) 100 08/27/18 14:00 Constitutional: Yes: Well Nourished Neck: Yes: WNL Labs: CBC, BMP 08/27/18 11:40 08/27/18 11:40 INR, PTT INR 1.74 (0.83-1.09) H 08/27/18 11:40 - Neuro Exam Level Of Consciousness: Yes: Oriented to Person, Oriented to Place, Sedated Eyes: Yes: PERRLA Speech: WNL Dominant Hand: Right Cranial Nerves II-XII Intact: Yes NIH Stroke Scale - Last Known Well Date/Time & Onset Date Last Known Well: 08/24/18 Time Last Known Well: 06:00 - Initial Evaluation Level of consciousness: Alert Ask patient the month and their age: Answers both correctly Ask patient to open & close eyes; make fist and let go: Obeys both correctly Best gaze (horizontal eye movement): Normal Visual field testing: Partial hemianopia Facial paresis (Show teeth/raise eyebrows/close eyes tight): Normal symmetrical movement Motor Function: Left Arm: Normal Motor Function: Right Arm: Normal (extends arm 90 (or 45) degrees for 10 seconds without drift Motor Function: Left Leg: Normal (extends leg 30 degrees for 5 seconds without drift) Motor Function: Right Leg: Normal (extends leg 30 degrees for 5 seconds without drift) Limb Ataxia: No ataxia Sensory(Use pinprick test arms,legs,trunk,face/side to side): Normal Dysarthria (read several words): Normal articulation Imaging - Results Cat Scan: Image Reviewed Problem List - Problems (1) CVA (cerebral vascular accident) Assessment/Plan: Acute Occipital CVA left MINIATURE SET BUILDER distribution stroke 1. Neuro checks 2. Baby ASA 3. Continue AC 4. PT 5. CTA look at the Left MINIATURE SET BUILDER 6. Fall precautions 7 unfortunately patient cannot get MRI, We will double check didn't kind of the permanent pacemaker while I was assessing the patient in the emergency room I was notified by the attending that the patient has fresh blood per rectum We will hold off the anticoagulation We'll hold off the aspirin GI evaluation Code(s): I63.9 - CEREBRAL INFARCTION, UNSPECIFIED
--- NOTE | 2018-08-27 18:04 | ECHO ---
Name: KHALIF JACOBSNEDON Exam:Adult Echocardiogram Study Date: 08/27/2018 03:01 PM Age: 87 yrs Height: 68 in Weight: 160 lb BSA: 1.9 m2 MMode/2D Measurements & Calculations IVSd: 1.3 cm Ao root diam: 3.4 cm LVIDd: 4.9 cm LA dimension: 5.3 cm LVIDs: 3.3 cm LVPWd: 1.3 cm EDV(Teich): 111.1 ml LVOT diam: 2.0 cm ESV(Teich): 44.3 ml LAV (MOD-bp): 130.0 ml RV S Nelson: 7.7 cm/sec Doppler Measurements & Calculations MV E max nelson: 96.0 cm/sec AI P1/2t: 462.8 msec AI max nelson: 343.4 cm/sec MR max nelson: 362.4 cm/sec AI max P.2 mmHg MR max P.5 mmHg AI dec slope: 217.4 cm/sec2 TR max nelson: 262.9 cm/sec PI end-d nelson: 83.4 cm/sec TR max P.5 mmHg Lat Peak E' Nelson: 8.5 cm/sec Lat E/e': 11.3 Procedure A complete two-dimensional transthoracic echocardiogram was performed (2D, M-mode, Doppler and color flow Doppler). Left Ventricle The left ventricle is normal in size. There is mild concentric left ventricular hypertrophy. Left chely tricular systolic function is normal. Ejection Fraction = 55-60%. No regional wall motion abnormalities noted. Right Ventricle RV cavity appears severely dilated. RV systolic TDI is 7 cm/s suggestive of reduced RV systolic funct ion. Atria The left atrium is severely dilated. The right atrium is severely dilated. Mitral Valve There is mild mitral annular calcification. Mildly redundant anterior mitral valve leaflet suggestive of mild mitral valve prolapse. There is mild to moderate mitral regurgitation. Tricuspid Valve The tricuspid valve is normal in structure and function. There is severe tricuspid regurgitation. Pul monary artery systolic pressure is at least 46 mmHg assuming RA pressure is 3 mmHg. Aortic Valve There is mild aortic sclerosis.;. Mild to moderate aortic regurgitation. Pulmonic Valve The pulmonic valve is not well visualized. Mild pulmonic valvular regurgitation. Great Vessels The aortic root is normal size. Pericardium/Pleura There is no pericardial effusion. Interpretation Summary The left ventricle is normal in size. There is mild concentric left ventricular hypertrophy. Left ventricular systolic function is normal. No regional wall motion abnormalities noted. Ejection Fraction = 55-60%. RV cavity appears severely dilated RV systolic TDI is 7 cm/s suggestive of reduced RV systolic function The left atrium is severely dilated. The right atrium is severely dilated. There is mild mitral annular calcification. Mildly redundant anterior mitral valve leaflet suggestive of mild mitral valve prolapse There is mild to moderate mitral regurgitation. There is severe tricuspid regurgitation. Pulmonary artery systolic pressure is at least 46 mmHg assuming RA pressure is 3 mmHg There is mild aortic sclerosis. Mild to moderate aortic regurgitation. Mild pulmonic valvular regurgitation. There is no pericardial effusion. Previous study is not available for comparison Cullen Avery MD 08/27/2018 06:04 PM
--- NOTE | 2018-08-27 18:24 | EKG ---
Test Reason : Blood Pressure : / mmHG Vent. Rate : 089 BPM Atrial Rate : 267 BPM P-R Int : 000 ms QRS Dur : 150 ms QT Int : 412 ms P-R-T Axes : 000 -05 232 degrees QTc Int : 501 ms ATRIAL FIBRILLATION RIGHT BUNDLE BRANCH BLOCK T WAVE ABNORMALITY, CONSIDER INFEROLATERAL ISCHEMIA ABNORMAL ECG WHEN COMPARED WITH ECG OF 05-AUG-2018 17:29, T WAVE VARIATION Confirmed by DEBBI SUAREZ MD ([id number]) on 08/27/2018 6:24:08 PM Referred By: Confirmed By:DEBBI SUAREZ MD
--- NOTE | 2018-08-27 18:30 | PN ---
Teaching Attending Note Name of Resident: Keaton Pinzon ATTENDING PHYSICIAN STATEMENT I saw and evaluated the patient. I reviewed the resident's note and discussed the case with the resident. I agree with the resident's findings and plan as documented. 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 he went to bed and woke up this am , with same difficulty finding words and felt very fatigue. he denies dysphagia, RYDER , visual abnormalities, weakness , or numbness, or tingling. he usually ambulate with a walker but his gait has become unsteady. he takes pradaxa for A fib, and never missed a dose ( last one yesterday). He had a stroke in 2010 while on coumadin and ws switchex he noticed BRBPR x 3 days now. wihth no abd pain, unable to quantify , but it is a lot. he continued to take pradaxa of note , patient had GI bleed 2 years ago, and was treated at [facility] . Had colonoscopy 2-3 years ago and a biopsy was taken. ? results . OBJECTIVE: NAd, Awake, slow in response, difficulty finding words. HEENT: MMM, no facial droop. EOMI, round equal pupils, reactive tolight . tongue at mid line. CV: RRR, 2/6 Sm at apex with JVD. Lungs: CATB Abd; mid line surgical scar, no tenderness, NL BS. Ext: Le: varicose veins R > L , edema R> L , hyperpigmenatation . no fungal infection among toes. Neuro: EOMI, round equal pupils, reactive to light . tongue at mid line. nl facial sensation , difficulty finding words. strength 5/5 in upper and lower extremitie proximmaly and distally. sensation to light touch NL. reflexes : 2+ biceps and BR, 1+ knee jerk b/l sensation to light touch NL Nose to finger abnormal in R . 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 1- CVA: signs and symptoms suggest a stroke in L frontal, L occipital and cerebellar areas. - Can't perform MRI due to emilie maker - hold off CTA as he might need Abd CTA if cont to bleed - hold AC , despite Afib/stroke, as he has active bleed and risk of AC overweigh benefit. - avoid hypotension . give IVF. - hold diuretics . - last echo was 08/27. reviewed. no need to repeat - neuro checks , neuro on board. - PTT, speech eval - CUS 2- Painless Rectal bleed: likely lower GI bleed ( hemorrhoids, AVM, diverticulosis, cancer...) - repeat stat H&H. if Hb is dropping, will transfuse - urgent GI consult conducted. d/w Dr. Murphy. if he decompensates, then will perform CTA of Abd/pelvis - H&H q 6 hr - IVF - PPI 3- H/o A fib: - hold BB due to bleed and hypotension - hold AC - monitor on tele 4- h/o R systolic/L diastolic heart failure: - hold diuresis - hold BB 5- h/o Idioventricular rate, s/p PPM . dispo: ICU . Critical Care Total Critical Care Time (in minutes): 55 Critical Care Statement: The care of this patient involved high complexity decision making to prevent further life threatening deterioration of the patient 's condition and/or to evaluate & treat vital organ system(s) failure or risk of failure.
--- NOTE | 2018-08-27 18:38 | HP ---
CHIEF COMPLAINT: expressive aphasia, and GI bleed PCP: Dr. Polo ([phone]) HISTORY OF PRESENT ILLNESS: Pt. presents with 2 days of progressively worsening aphasia and lethargy. Per family Pt at his baseline is very active especially after receiving PPM, and "sharp as a tack." Pt. also states that GI bleed started 2 days ago and has gotten worse. Of note Pt. had PPM placed 3 weeks ago. Pt. had a stroke in 2010 but has very minimal right-sided lower deficit. Pt. has had a colonoscopy 2-[address] Cabezas at [facility] that was unremarkable. Pt. also has had a GI bleed in the past and has a history of abdominal surgery that includes a colonic resection and anastomosis. Pt. states that he takes his medications every day as prescribed. ER course was notable for: (1)Head CT, Neuro consult (2)Labs (3)40 meq K-Dur Recent Travel: No PAST MEDICAL HISTORY: Afib, HTN, HLD, CVA, CHFrEF, Hypothyroidism PAST SURGICAL HISTORY: PPM(07/26), B/L Hip replacement(), and colon surgery that required resection and anastamosis ( few years ago) Social History: Smoking: No, but 20+ years of second hand smoke Alcohol: Denies Drugs: Denies Family History: Mother of Pancreatic cancer (89); Father of NH (55) Allergies No Known Allergies Allergy (Verified 08/27/18 10:41) HOME MEDICATIONS: Home Medications Medication Instructions Recorded Ascorbic Acid [Vitamin C] 500 mg PO DAILY 08/05/18 Atorvastatin Ca [Lipitor] 0 mg PO ASDIR 08/05/18 Beta-Carotene(A) W-C and E/Min 1 tab PO DAILY 08/05/18 [Ocuvite (Nf)] Dabigatran Etexilate Mesylate 150 mg PO BID 08/05/18 [Pradaxa -] Famotidine [Pepcid] 40 mg PO ASDIR 08/05/18 Ferrous Sulfate [Feosol] 325 mg PO DAILY 08/05/18 Furosemide [Lasix] 80 mg PO BID 08/05/18 Levothyroxine [Synthroid -] 100 mcg PO DAILY 08/05/18 Metolazone [Zaroxolyn -] 2.5 mg PO DAILY 08/05/18 Metoprolol Tartrate [Lopressor -] 25 mg PO BID 08/05/18 Potassium Chloride 0 meq PO BID 08/05/18 REVIEW OF SYSTEMS CONSTITUTIONAL: Present:generalized weakness Absent: fever, chills, diaphoresis , , malaise, loss of appetite, weight change HEENT: Present: visual changes Absent: rhinorrhea, nasal congestion, throat pain, throat swelling, difficulty swallowing, mouth swelling, ear pain, eye pain , CARDIOVASCULAR: Present: lightheadedness, irregular heart rate, peripheral edema Absent: chest pain, syncope, palpitations, RESPIRATORY: Absent: cough, shortness of breath, dyspnea with exertion, orthopnea, wheezing, stridor, hemoptysis GASTROINTESTINAL:Present: melena, hematochezia Absent: abdominal pain, abdominal distension, nausea, vomiting, diarrhea, constipation, GENITOURINARY: Absent: dysuria, frequency, urgency, hesitancy, hematuria, flank pain, genital pain MUSCULOSKELETAL: Absent: myalgia, arthralgia, joint swelling, back pain, neck pain SKIN: Absent: rash, itching, pallor HEMATOLOGIC/IMMUNOLOGIC: Absent: easy bleeding, easy bruising, lymphadenopathy, frequent infections ENDOCRINE: Absent: unexplained weight gain, unexplained weight loss, heat intolerance, cold intolerance NEUROLOGIC: Present: mental status changes Absent: headache, focal weakness or paresthesias, dizziness, unsteady gait, seizure, bladder or bowel incontinence PSYCHIATRIC: Absent: anxiety, depression, suicidal or homicidal ideation, hallucinations. PHYSICAL EXAMINATION Vital Signs - 24 hr 08/27/18 08/27/18 08/27/18 10:30 11:28 14:00 Temperature 97.5 F L 97.9 F 97.2 F L Pulse Rate 91 H Pulse Rate [ 106 H Apical] Respiratory 16 18 Rate Blood Pressure 99/64 Blood Pressure 98/61 [Right Arm] O2 Sat by Pulse 100 100 Oximetry (%) GENERAL: Awake, alert, and fully oriented, in no acute distress. HEAD: Normal with no signs of trauma. EYES: Pupils equal, round and reactive to light, extraocular movements intact, sclera anicteric, conjunctiva clear, right sided visual deficits EARS, NOSE, THROAT: Ears normal, nares patent, oropharynx clear without exudates. Moist mucous membranes. LUNGS: Decreased breath sounds in bases, diffuse wheezing. No accessory muscle use. HEART: Irregular rate and rhythm, normal S1 and S2 ABDOMEN: Soft, nontender, not distended, normoactive bowel sounds, no guarding, no rebound, no masses, tympanic to percussion. No hepatomegaly or splenomegaly. MUSCULOSKELETAL: No CVA tenderness. UPPER EXTREMITIES: 2+ pulses, warm, well-perfused. No cyanosis. No clubbing. No peripheral edema. LOWER EXTREMITIES: 2+ pulses, warm, well-perfused. 5/5 muscle strength. R>L in size and level of erythema. Small ulceration of right lower extremity. No calf tenderness. 1 + edema. NEUROLOGICAL: Cranial nerves II-XII intact. Expressive aphasia. Gait no assessed PSYCHIATRIC: Cooperative. Good eye contact. Appropriate mood and affect. SKIN: Warm, dry, extensive erythema R>L in bilateral lower extremity, 3 sec. capillary refill Laboratory Results - last 24 hr 08/27/18 08/27/18 08/27/18 11:37 11:40 11:40 WBC 3.5 L RBC 2.47 L Hgb 8.0 L Hct 24.4 L D MCV 98.9 H MCH 32.5 MCHC 32.9 RDW 17.1 H Plt Count 176 MPV 7.6 Absolute Neuts (auto) 2.3 Neutrophils % 67.0 Lymphocytes % 24.2 D Monocytes % 7.1 Eosinophils % 0.6 Basophils % 1.1 Nucleated RBC % 0 PT with INR 20.60 H INR 1.74 H Sodium Potassium Chloride Carbon Dioxide Anion Gap BUN Creatinine Creat Clearance w eGFR Random Glucose Calcium Total Bilirubin AST ALT Alkaline Phosphatase Creatine Kinase Troponin I Total Protein Albumin Urine Color Straw Urine Appearance Clear Urine pH 7.0 Ur Specific [place] 1.012 Urine Protein Negative Urine Glucose (UA) Negative Urine Ketones Negative Urine Blood Negative Urine Nitrite Negative Urine Bilirubin Negative Urine Urobilinogen Negative Ur Leukocyte Esterase Negative Stool Occult Blood Blood Type Antibody Screen 08/27/18 08/27/18 08/27/18 11:40 11:40 16:45 WBC RBC Hgb Hct MCV MCH MCHC RDW Plt Count MPV Absolute Neuts (auto) Neutrophils % Lymphocytes % Monocytes % Eosinophils % Basophils % Nucleated RBC % PT with INR INR Sodium 141 Potassium 3.2 L Chloride 100 Carbon Dioxide 29 Anion Gap 12 BUN 51 H Creatinine 1.3 Creat Clearance w eGFR 52.22 Random Glucose 105 Calcium 8.2 L Total Bilirubin 0.7 AST 43 H ALT 22 Alkaline Phosphatase 122 H Creatine Kinase 101 Troponin I 0.05 Total Protein 6.6 Albumin 3.0 L Urine Color Urine Appearance Urine pH Ur Specific [place] Urine Protein Urine Glucose (UA) Urine Ketones Urine Blood Urine Nitrite Urine Bilirubin Urine Urobilinogen Ur Leukocyte Esterase Stool Occult Blood Negative Blood Type A POSITIVE Antibody Screen Negative ASSESSMENT/PLAN: An 87 y.o. M w/ PMHx. of A. Fib( On Pradaxa), HTN, CVA(2010), HLD, CHFrEF, Hypothyroidism and Hx. of GI Bleed a few years ago presents to the ED with expressive aphasia, "not feeling himself", and GI bleed. -Suspected Ischemic Stroke CT Head: shows chronic infarcts in left external capsule, no definite acute intracranial pathology. Per Dr. 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 CT Head not a candidate for A/C or tPA as Pt. has ongoing GI bleed, recent PPM surgery ( 3 weeks ago) and has stroke like symptoms while on Pradaxa. -Anemia 2/2 GI bleed superimposed on chronic anemia HgB 11-->8.0 Initial INR no admission was 5.1-->1.74 Pt. takes Ferosol at home Hx. of GI bleed in past last colonospcopy unremarkable per . f/u Rpt. CBC @ 6:30pm and then at midnight and then at 6am transfusion threshold is 8.[address] Murphy appreciated, can do CTA if GI bleeding persists, try to time with Head CT if Head CT is done with contrast c.w Protonix 40mg IVP incase this is an UGI bleed. -A.fib hold anticoagulation in setting of GI bleed Echo shows: EF-55-60%, RV,LA and RA severely dilated, mild MVP, severe TR, pulm. artery pressure of 46mmHg Telemetry monitoring hold metoprolol in setting of low BP, can use digoxin if tachycardia becomes a problem. 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 Jewell ([phone]) and PCP about anticoagulation and medication doses -HTN hold BP meds as patient's BP is low-normal -CHFrEF Echo 08/26 appreciated as noted above monitor volume status hold Lasix will reassess tomorrow -F/E/N LR @ 42ml/hr for volume resucitation with mindfulness of CHF replete potassium as needed, chronically hypokalemic NPO in setting of GI bleed -DVT Ppx. SCDs hold AC in setting of GI bleed Visit type - Emergency Visit Emergency Visit: Yes ED Registration Date: 08/27/18 Care time: The patient presented to the Emergency Department on the above date and was hospitalized for further evaluation of their emergent condition. - New Patient This patient is new to me today: Yes Date on this admission: 08/27/18 - Critical Care Critical Care patient: No
[2018-08-27] MEDS ORDERED: LACTATED RINGERS SOLUTION 1,000 ML/1,000 ML INFUS.BAG IV SCH (19:00)
[2018-08-27] MEDS ORDERED: PANTOPRAZOLE SODIUM 40 MG VIAL IVPUSH SCH (19:00)
--- NOTE | 2018-08-27 19:02 | CON.GI ---
Consult Consult Specialty:: GI Referred by:: Hospitalist Service Reason for Consultation:: Rectal bleeding - History of Present Illness Chief Complaint: Patient does not give CC History of Present Illness: Daughter and wifr present at bedside. 87M admitted through [facility] ER for evaluation of lethargy, change in behavior, fatigue. His also stated that she noticed rectal bleeding from the weekend, but it got worse today. Hgb at 11: 40 was 8. Baseline is 11. He is maintained on pradaxa, which he last took last night. He had GI bleed 2-3 years ago. 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 Nam at [place]. Family states that the colonoscopy was normal. The family states that he had a "twisted bowel" regquiring an ostomy and eventual reversal. He denies abdominal pain. He was evaluated by neurology who felt that he is having an acute occipital Lt. INSTRUCTIONAL AIDE distribution stroke. PUD is included in his PMhx however the family does not confirm this. 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: CVA (2010, right distal MCA occlusion) Cardio/Vascular: Yes: AFIB, CHF (mild LV systolic dysunction, moderate RV systolic dysfunction), Hyperlipdemia, Pulmonary Hypertension, Other ( pericarditis 1980) Gastrointestinal: Yes: GERD, Hemorrhoids, Peptic Ulcer Disease Renal/: Yes: Renal Inusuff, BPH Psych: Yes: Anxiety Musculoskeletal: Yes: Osteoarthritis Endocrine: Yes: Hypothyroidism - Past Surgical History Past Surgical History: Yes: Colectomy (partial colectomy for volvulus), Hernia Repair (Left repair 10/2014), Joint Replacement (bilateral THRs 1991), Prostatectomy (1979), Vasectomy (1979) - Alcohol/Substance Use Hx Alcohol Use: No History of Substance Use: reports: None - Smoking History Smoking history: Never smoked Have you smoked in the past 12 months: No - Social History ADL: Independent 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 Place of : [facility] History of Recent Travel: No Home Medications - Allergies Allergies/Adverse Reactions: Allergies Allergy/AdvReac Type Severity Reaction Status Date / Time No Known Allergies Allergy Verified 08/27/18 10:41 - Home Medications Home Medications: Ambulatory Orders Ascorbic Acid [Vitamin C] 500 mg PO DAILY 08/05/18 Atorvastatin Ca [Lipitor] 0 mg PO ASDIR 08/05/18 Beta-Carotene(A) W-C and E/Min [Ocuvite (Nf)] 1 tab PO DAILY 08/05/18 Dabigatran Etexilate Mesylate [Pradaxa -] 150 mg PO BID 08/05/18 Famotidine [Pepcid] 40 mg PO ASDIR 08/05/18 Ferrous Sulfate [Feosol] 325 mg PO DAILY 08/05/18 Furosemide [Lasix] 80 mg PO BID 08/05/18 Levothyroxine [Synthroid -] 100 mcg PO DAILY 08/05/18 Metolazone [Zaroxolyn -] 2.5 mg PO DAILY 08/05/18 Metoprolol Tartrate [Lopressor -] 25 mg PO BID 08/05/18 Potassium Chloride 0 meq PO BID 08/05/18 Family Disease History - Family Disease History Family Disease History: Heart Disease: Father (heart disease 72), Other: Mother (ca pancreas 89), Brother (None), Sister (None), Daughter (2, healthy) Other Family History: No family history of colon cancer Review of Systems - Review of Systems Constitutional: denies: Fever Cardiovascular: denies: Chest Pain Respiratory: denies: SOB Gastrointestinal: reports: Rectal Bleeding. denies: Abdominal Pain, Nausea, Vomiting Physical Exam-GI Vital Signs: Vital Signs Temperature 97.8 F 08/27/18 18:47 Pulse Rate 92 H 08/27/18 18:47 Respiratory Rate 16 08/27/18 18:47 Blood Pressure 103/59 L 08/27/18 18:47 O2 Sat by Pulse Oximetry (%) 95 08/27/18 18:47 Constitutional: Yes: Calm Eyes: No: Sclera Icterus Cardiovascular: Yes: Tachycardia Respiratory: Yes: CTA Bilaterally Gastrointestinal Inspection: Yes: Scars (midline vertical surgical scar). No: Distention ...Auscultate: Yes: Normoactive Bowel Sounds ...Palpate: Yes: Other (fullness in the right abdomen when compared to left). No: Tenderness ...Percussion: No: Tympanitic Extremities: Yes: Other (chronic stasis changes and ulcer / erythema on right leg) Edema: Yes Labs: CBC, BMP 08/27/18 11:40 08/27/18 11:40 INR, PTT INR 1.74 (0.83-1.09) H 08/27/18 11:40 Assessment/Plan GI bleed: Limited in terms of evaluation at this time as neurology vbeleievs that he is having an acute CVA. He is also on Anticoagulation with Pradaxa and took a dose last night Plan: ICU evaluation Repeat CBC. Transfuse as needed, avoid hypotension PPI drip and monitor magnesium levels while on PPI If continued overt bleeding, CTA of the abdomen. If there is a source of active bleeding noted, can obtain IR opinion regarding if intervention can be performed at this time. When cleared medically / neurologically, EGD and colonoscopy can be undertaken to evaluate for bleeding source.
--- NOTE | 2018-08-27 19:16 | CON.CARD ---
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 last evening ( 3 days per internal medicine doctor history) he started having difficulty finding words. he went to bed and woke up this am , with same difficulty finding words and felt very fatigue. he denies dysphagia, RYDER , visual abnormalities, weakness , or numbness, or tingling. he usually ambulate with a walker but his gait has become unsteady. he takes pradaxa for A fib, and never missed a dose ( last one yesterday). He had a stroke in 2010 while on coumadin and ws switchex he noticed BRBPR x 3 days now. wihth no abd pain, unable to quantify , but it is a lot. he continued to take pradaxa of note , patient had GI bleed 2 years ago, and was treated at [place] . Had colonoscopy 2-3 years ago and a biopsy was taken. 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: CVA (2010, right distal MCA occlusion) Cardio/Vascular: Yes: AFIB, CHF (mild LV systolic dysunction, moderate RV systolic dysfunction), Hyperlipdemia, Pulmonary Hypertension, Other ( pericarditis 1980) Gastrointestinal: Yes: GERD, Hemorrhoids, Peptic Ulcer Disease Renal/: Yes: Renal Inusuff, BPH Psych: Yes: Anxiety Musculoskeletal: Yes: Osteoarthritis Endocrine: Yes: Hypothyroidism - Past Surgical History Past Surgical History: Yes: Colectomy (partial colectomy for volvulus), Hernia Repair (Left repair 10/2014), Joint Replacement (bilateral THRs 1991), Prostatectomy (1979), Vasectomy (1979) - Alcohol/Substance Use Hx Alcohol Use: No History of Substance Use: reports: None - Smoking History Smoking history: Never smoked Have you smoked in the past 12 months: No - Social History ADL: Independent 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 History of Recent Travel: No Home Medications - Allergies Allergies/Adverse Reactions: Allergies Allergy/AdvReac Type Severity Reaction Status Date / Time No Known Allergies Allergy Verified 08/27/18 10:41 - Home Medications Home Medications: Ambulatory Orders Ascorbic Acid [Vitamin C] 500 mg PO DAILY 08/05/18 Atorvastatin Ca [Lipitor] 0 mg PO ASDIR 08/05/18 Beta-Carotene(A) W-C and E/Min [Ocuvite (Nf)] 1 tab PO DAILY 08/05/18 Dabigatran Etexilate Mesylate [Pradaxa -] 150 mg PO BID 08/05/18 Famotidine [Pepcid] 40 mg PO ASDIR 08/05/18 Ferrous Sulfate [Feosol] 325 mg PO DAILY 08/05/18 Furosemide [Lasix] 80 mg PO BID 08/05/18 Levothyroxine [Synthroid -] 100 mcg PO DAILY 08/05/18 Metolazone [Zaroxolyn -] 2.5 mg PO DAILY 08/05/18 Metoprolol Tartrate [Lopressor -] 25 mg PO BID 08/05/18 Potassium Chloride 0 meq PO BID 08/05/18 Family Disease History - Family Disease History Family Disease History: Heart Disease: Father (heart disease 72), Other: Mother (ca pancreas 89), Brother (None), Sister (None), Daughter (2, healthy) Other Family History: No family history of colon cancer Review of Systems - Review of Systems Constitutional: reports: No Symptoms Eyes: reports: No Symptoms HENT: reports: No Symptoms Neck: reports: No Symptoms Cardiovascular: reports: No Symptoms Respiratory: reports: No Symptoms Gastrointestinal: reports: Melena Genitourinary: reports: No Symptoms Breasts: reports: No Symptoms Reported Musculoskeletal: reports: No Symptoms Integumentary: reports: No Symptoms Neurological: reports: Change in Speech Endocrine: reports: No Symptoms Hematology/Lymphatic: reports: No Symptoms Psychiatric: reports: No Symptoms Vital Signs: Vital Signs Temperature 97.8 F 08/27/18 18:47 Pulse Rate 92 H 08/27/18 18:47 Respiratory Rate 16 08/27/18 18:47 Blood Pressure 103/59 L 08/27/18 18:47 O2 Sat by Pulse Oximetry (%) 95 08/27/18 18:47 Constitutional: Yes: Well Nourished, No Distress, Calm Eyes: Yes: WNL, Conjunctiva Clear, EOM Intact HENT: Yes: WNL, Atraumatic, Normocephalic Neck: Yes: WNL, Supple, Trachea Midline Respiratory: Yes: WNL, Regular, CTA Bilaterally Gastrointestinal: Yes: WNL, Normal Bowel Sounds Renal/: Yes: WNL Cardiovascular: Yes: Pulse Irregular Musculoskeletal: Yes: WNL Extremities: Yes: WNL Integumentary: Yes: WNL Neurological: Yes: WNL, Alert, Oriented ...Motor Strength: WNL Psychiatric: Yes: WNL, Alert, Oriented - Other Data Labs, Other Data: CBC, BMP 08/27/18 11:40 08/27/18 11:40 INR, PTT INR 1.74 (0.83-1.09) H 08/27/18 11:40 Troponin, BNP 08/27/18 11:40 Troponin I 0.05 Troponin, BNP 08/27/18 11:40 Troponin I 0.05 Imaging - Results Chest X-ray: Image Reviewed (mod r pleural effusion with atelectasis) EKG: Image Reviewed (af RBBB rep abn) Problem List - Problems (1) Altered mental status Code(s): R41.82 - ALTERED MENTAL STATUS, UNSPECIFIED Qualifiers: Altered mental status type: unspecified Qualified Code(s): R41.82 - Altered mental status, unspecified (2) CVA (cerebral vascular accident) Code(s): I63.9 - CEREBRAL INFARCTION, UNSPECIFIED (3) Acute exacerbation of CHF (congestive heart failure) Code(s): I50.9 - HEART FAILURE, UNSPECIFIED (4) Anemia Code(s): D64.9 - ANEMIA, UNSPECIFIED Qualifiers: (5) Atrial fibrillation Code(s): I48.91 - UNSPECIFIED ATRIAL FIBRILLATION (6) Atrial fibrillation with rapid ventricular response Code(s): I48.91 - UNSPECIFIED ATRIAL FIBRILLATION (7) Benign prostate hyperplasia Code(s): N40.0 - BENIGN PROSTATIC HYPERPLASIA WITHOUT LOWER URINRY TRACT SYMP (8) Bradycardia Code(s): R00.1 - BRADYCARDIA, UNSPECIFIED (9) Bradycardia Code(s): R00.1 - BRADYCARDIA, UNSPECIFIED (10) Bradycardia with 31-40 beats per minute Code(s): R00.1 - BRADYCARDIA, UNSPECIFIED (11) Cellulitis Code(s): L03.90 - CELLULITIS, UNSPECIFIED Qualifiers: (12) Congestive heart failure (CHF) Code(s): I50.9 - HEART FAILURE, UNSPECIFIED (13) DVT prophylaxis Code(s): [id number] - (14) H/O: CVA (cerebrovascular accident) Code(s): Z86.73 - PRSNL HX OF TIA (TIA), AND CEREB INFRC W/O RESID DEFICITS (15) Head injury Code(s): S09.90XA - UNSPECIFIED INJURY OF HEAD, INITIAL ENCOUNTER (16) Hyperlipidemia Code(s): E78.5 - HYPERLIPIDEMIA, UNSPECIFIED (17) Hypothyroidism Code(s): E03.9 - HYPOTHYROIDISM, UNSPECIFIED (18) Idioventricular rhythm Code(s): I44.2 - ATRIOVENTRICULAR BLOCK, COMPLETE (19) Macular degeneration of both eyes Code(s): H35.30 - UNSPECIFIED MACULAR DEGENERATION Qualifiers: Macular degeneration type: nonexudative age-related Nonexudative macular degeneration stage: intermediate dry stage Qualified Code(s): H35.3132 - Nonexudative age-related macular degeneration, bilateral, intermediate dry stage (20) Macular degeneration, age related Code(s): H35.30 - UNSPECIFIED MACULAR DEGENERATION (21) Near syncope Code(s): R55 - SYNCOPE AND COLLAPSE (22) Pleural effusion Code(s): J90 - PLEURAL EFFUSION, NOT ELSEWHERE CLASSIFIED (23) Pleural effusion Code(s): J90 - PLEURAL EFFUSION, NOT ELSEWHERE CLASSIFIED (24) Pneumonia Code(s): J18.9 - PNEUMONIA, UNSPECIFIED ORGANISM (25) RVF (right ventricular failure) Code(s): I50.9 - HEART FAILURE, UNSPECIFIED (26) Renal dysfunction Code(s): N28.9 - DISORDER OF KIDNEY AND URETER, UNSPECIFIED (27) Scrotal blister Code(s): S30.823A - BLISTER (NONTHERMAL) OF SCROTUM AND TESTES, INIT ENCNTR (28) Supratherapeutic INR Code(s): R79.1 - ABNORMAL COAGULATION PROFILE (29) Syncope Code(s): R55 - SYNCOPE AND COLLAPSE (30) Systolic CHF, chronic Code(s): I50.22 - CHRONIC SYSTOLIC (CONGESTIVE) HEART FAILURE (31) Weakness Code(s): R53.1 - WEAKNESS Assessment/Plan 87 y/o gentleman with h/o systolic and diastolic heart failure, HTN, A fib, 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 Plan; conservative rx as per GI and neuro. Agree with stopping AC discussed high the risk of CVA with patient and the bedsite.
[2018-08-27 20:26] LABS: HEMATOCRIT 21.7 % (35.4-49); HEMOGLOBIN 7.5 GM/dL (11.7-16.9); MCH 34.4 pg (25.7-33.7); MCHC 34.7 g/dl (32.0-35.9); MEAN CELL VOLUME 98.9 fl (80-96); MEAN PLT VOLUME 7.5 fl (7.5-11.1); PLATELET COUNT 184 K/MM3 (134-434); WHITE BLOOD COUNT 3.2 K/mm3 (4.0-10.0)
--- NOTE | 2018-08-27 21:12 | CONSULT ---
Consult Consult Specialty:: ICU Referred by:: Dr. Rose Reason for Consultation:: GI bleed - History of Present Illness History of Present Illness: 87M PMH of ystolic and diastolic heart failure, HTN, A fib, CVA in 2010 while on coumadin, PPM recently placed for bradycardia, Hp replacement, TR, previous GI bleed, who presented with aphasia. Patient endorsed to primary team that he has been having BRBPR for the past 3 days. Patient has a history of stroke in 2010 and was on coumadin at the time for this a fib and has been on pradaxa ever since. He currently denies nausea vomiting fever chills chest pain or SOB. He denies weakness numbness or tingling. RN reports black stools. Patient is on Iron at home. Primary team noticed red blood on digital rectal exam. 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: CVA (2010, right distal MCA occlusion) Cardio/Vascular: Yes: AFIB, CHF (mild LV systolic dysunction, moderate RV systolic dysfunction), Hyperlipdemia, Pulmonary Hypertension, Other ( pericarditis 1980) Gastrointestinal: Yes: GERD, Hemorrhoids, Peptic Ulcer Disease Renal/: Yes: Renal Inusuff, BPH Psych: Yes: Anxiety Musculoskeletal: Yes: Osteoarthritis Endocrine: Yes: Hypothyroidism - Past Surgical History Past Surgical History: Yes: Colectomy (partial colectomy for volvulus), Hernia Repair (Left repair 10/2014), Joint Replacement (bilateral THRs 1991), Prostatectomy (1979), Vasectomy (1979) Additional Surgical History: PPM - Alcohol/Substance Use Hx Alcohol Use: No History of Substance Use: reports: None - Smoking History Smoking history: Never smoked Have you smoked in the past 12 months: No - Social History ADL: Independent 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 History of Recent Travel: No Home Medications - Allergies Allergies/Adverse Reactions: Allergies Allergy/AdvReac Type Severity Reaction Status Date / Time No Known Allergies Allergy Verified 08/27/18 10:41 - Home Medications Home Medications: Ambulatory Orders Ascorbic Acid [Vitamin C] 500 mg PO DAILY 08/05/18 Atorvastatin Ca [Lipitor] 0 mg PO ASDIR 08/05/18 Beta-Carotene(A) W-C and E/Min [Ocuvite (Nf)] 1 tab PO DAILY 08/05/18 Dabigatran Etexilate Mesylate [Pradaxa -] 150 mg PO BID 08/05/18 Famotidine [Pepcid] 40 mg PO ASDIR 08/05/18 Ferrous Sulfate [Feosol] 325 mg PO DAILY 08/05/18 Furosemide [Lasix] 80 mg PO BID 08/05/18 Levothyroxine [Synthroid -] 100 mcg PO DAILY 08/05/18 Metolazone [Zaroxolyn -] 2.5 mg PO DAILY 08/05/18 Metoprolol Tartrate [Lopressor -] 25 mg PO BID 08/05/18 Potassium Chloride 0 meq PO BID 08/05/18 Family Disease History - Family Disease History Family Disease History: Heart Disease: Father (heart disease 72), Other: Mother (ca pancreas 89), Brother (None), Sister (None), Daughter (2, healthy) Other Family History: No family history of colon cancer Review of Systems - Review of Systems Constitutional: reports: Lethargy Eyes: reports: No Symptoms HENT: reports: No Symptoms Neck: reports: No Symptoms Cardiovascular: reports: No Symptoms Respiratory: reports: No Symptoms Gastrointestinal: reports: Rectal Bleeding, Other (black stools) Musculoskeletal: reports: No Symptoms Integumentary: reports: No Symptoms Neurological: reports: Other (Aphasia) Physical Exam Vital Signs: Vital Signs Temperature 97.9 F 08/27/18 20:42 Pulse Rate 81 08/27/18 20:42 Respiratory Rate 20 08/27/18 20:42 Blood Pressure 102/64 08/27/18 20:42 O2 Sat by Pulse Oximetry (%) 100 08/27/18 20:42 Constitutional: Yes: Well Nourished, No Distress, Calm Eyes: Yes: Other (conjunctival pallor) HENT: Yes: Atraumatic, Normocephalic, Other (Dry mucous membranes) Neck: Yes: Supple Cardiovascular: Yes: Pulse Irregular Respiratory: Yes: CTA Bilaterally Gastrointestinal: Yes: Soft. No: Tenderness ...Rectal Exam: Yes: Other (black stool on glove no red blood appreciated) Renal/: No: CVA Tenderness - Left, CVA Tenderness - Right Extremities: Yes: Other (chronic venous stasis changes bilaterally) Edema: Yes Edema: LLE: 1+, RLE: 1+ Neurological: Yes: Alert, Oriented (oriented to self and month. Did not know year. Knew the president), Cran Nerves II-XII Intact, Other (bilateral upper extremities strength equal movement at the shoulder and elbow joints. shoulder shrug WNL. sensation intact. Bilateral lower extremity strength equal. Able to dorsi and plantar flex. Able to hold leg up at the hip joint bilaterally.). No : Aphasia, Facial Droop Labs: CBC, BMP 08/27/18 20:10 08/27/18 11:40 Imaging - Results Chest X-ray: Report Reviewed, Image Reviewed Cat Scan: Report Reviewed, Image Reviewed EKG: Report Reviewed, Image Reviewed Other: Other (Echo Noted) Assessment/Plan 87M with multiple medical problems presents with aphasia and GI bleed on pradaxa. Problem List: Right sided systolic heart failure diastolic heart failure HTN A fib on pradaxa GI bleed on anticoagulant Aphasia r/o CVA history of bradycardia s/p PPM h/o CVA Severe tricuspid regurgitation Hypothyroidism Anemia Leukopenia Melanotic stools Plan: Trend CBC q6h Transfuse PRN PPI gtt per GI and primary team with monitoring magnesium levels Neurology evaluation cardiology evaluation Hold anticoagulation at this time colonoscopy/EGD when stable Speech and swallow evaluation rectal by resident: bright red on examiner finger, no masses, fissures, or hemorrhoids CTA of abdomen and pelvis if overt bleeding per GI Primary team requesting ICU transfer but there are no bed availabilities at this time Patient can continued to be monitored on telemetry for now
[2018-08-27] MEDS ORDERED: MUPIROCIN 2% TOPICAL OINTMENT FOR DECOLONIZATION NS SCH (22:00)
[2018-08-27] MEDS ORDERED: CHLORHEXIDINE GLUCONATE 4% CLEANSER FOR DECOLONIZATION TP SCH (22:00)
[2018-08-28 07:39] LABS: BASO % 0.7 % (0-2.0); EOS % 1.2 % (0-4.5); HEMATOCRIT 23.4 % (35.4-49); HEMOGLOBIN 7.8 GM/dL (11.7-16.9); LYMPH % 20.4 % (8-40); MCH 32.3 pg (25.7-33.7); MCHC 33.2 g/dl (32.0-35.9); MEAN CELL VOLUME 97.4 fl (80-96); MEAN PLT VOLUME 7.6 fl (7.5-11.1); MONO % 6.1 % (3.8-10.2); NEUT % 71.6 % (42.8-82.8); PLATELET COUNT 158 K/MM3 (134-434); RDW 18.1 % (11.9-15.9); WHITE BLOOD COUNT 3.3 K/mm3 (4.0-10.0)
[2018-08-28 08:01] LABS: ANION GAP 8 MMOL/L (8-16); BLOOD UREA NITROGEN 43 mg/dL (7-18); CALCIUM 8.2 mg/dL (8.5-10.1); CHLORIDE 106 mmol/L (98-107); CO2 30 mmol/L (21-32); CREATININE 1.1 mg/dL (0.55-1.3); GLUCOSE,RANDOM 84 mg/dL (74-106); MAGNESIUM 2.5 mg/dL (1.8-2.4); PHOSPHOROUS 3.1 mg/dL (2.5-4.9); POTASSIUM 3.3 mmol/L (3.5-5.1); SODIUM 144 mmol/L (136-145)
[2018-08-28 08:06] LABS: INR 1.49 (0.83-1.09); PROTHROMBIN TIME (PATIENT) 17.6 SEC (9.7-13.0)
[2018-08-28 08:09] LABS: ACTIVATED PTT 48.8 SECONDS (25.2-36.5)
[2018-08-28] MEDS ORDERED: POTASSIUM CHLORIDE 20 MEQ PREMIX IVPB 100 ML IVPB SCH (09:00)
[2018-08-28] MEDS ORDERED: PANTOPRAZOLE SODIUM 40 MG VIAL IVPUSH SCH (10:00)
[2018-08-28] MEDS ORDERED: D5-NS + 20 MEQ KCL - 20 MEQ/1,000 ML INFUS.BAG IV SCH (10:15)
[2018-08-28] MEDS: KCL 10 MEQ IVPB 10 MEQ/100 ML INFUS.BAG IVPB SCH ×2 (10:51→16:22)
--- NOTE | 2018-08-28 11:52 | PN ---
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 he went to bed and woke up this am , with same difficulty finding words and felt very fatigue. he denies dysphagia, RYDER , visual abnormalities, weakness , or numbness, or tingling. he usually ambulate with a walker but his gait has become unsteady. he takes pradaxa for A fib, and never missed a dose ( last one yesterday). He had a stroke in 2010 while on coumadin and ws switchex he noticed BRBPR x 3 days now. wihth no abd pain, unable to quantify , but it is a lot. he continued to take pradaxa of note , patient had GI bleed 2 years ago, and was treated at [place] . Had colonoscopy 2-3 years ago and a biopsy was taken. - Current Medication List Current Medications: Active Medications Dextrose/Sodium Chloride (Dextrose 5%-Normal Saline+20 Meq Kcl -) 20 meq in 1, 000 mls @ 42 mls/hr IV ASDIR [facility] Last Admin: 08/28/18 11:12 Dose: 42 mls/hr Potassium Chloride (Potassium Chloride 10 Meq Premix Ivpb -) 10 meq in 100 mls @ 100 mls/hr IVPB Q60M [facility] Stop: 08/28/18 13:29 Last Admin: 08/28/18 10:51 Dose: 100 mls/hr Pantoprazole Sodium (Protonix Iv) 40 mg IVPUSH BID [facility] Last Admin: 08/28/18 10:50 Dose: 40 mg - Objective Vital Signs: Vital Signs Temperature 97.8 F 08/28/18 08:00 Pulse Rate 112 H 08/28/18 08:00 Respiratory Rate 20 08/28/18 08:00 Blood Pressure 107/65 08/28/18 08:00 O2 Sat by Pulse Oximetry (%) 100 08/28/18 09:00 Eyes: Yes: WNL, Conjunctiva Clear, EOM Intact HENT: Yes: WNL, Atraumatic, Normocephalic Neck: Yes: WNL, Supple, Trachea Midline Cardiovascular: Yes: WNL, Pulse Irregular, S1, S2 Respiratory: Yes: WNL, Regular, CTA Bilaterally Gastrointestinal: Yes: WNL, Normal Bowel Sounds Genitourinary: Yes: WNL Musculoskeletal: Yes: WNL Extremities: Yes: WNL Edema: No Integumentary: Yes: WNL Neurological: Yes: WNL, Alert, Oriented ...Motor Strength: WNL Psychiatric: Yes: WNL Labs: CBC, BMP 08/28/18 05:30 08/28/18 05:30 INR, PTT INR 1.49 (0.83-1.09) H 08/28/18 05:30 Laboratory Tests 08/27/18 08/27/18 08/27/18 11:37 11:40 11:40 WBC 3.5 L RBC 2.47 L Hgb 8.0 L Hct 24.4 L D MCV 98.9 H MCH 32.5 MCHC 32.9 RDW 17.1 H Plt Count 176 MPV 7.6 Absolute Neuts (auto) 2.3 Neutrophils % 67.0 Lymphocytes % 24.2 D Monocytes % 7.1 Eosinophils % 0.6 Basophils % 1.1 Nucleated RBC % 0 ESR PT with INR 20.60 H INR 1.74 H PTT (Actin FS) Sodium Potassium Chloride Carbon Dioxide Anion Gap BUN Creatinine Creat Clearance w eGFR Random Glucose Calcium Phosphorus Magnesium Total Bilirubin AST ALT Alkaline Phosphatase Creatine Kinase Troponin I Total Protein Albumin Vitamin B12 TSH Urine Color Straw Urine Appearance Clear Urine pH 7.0 Ur Specific Oliver 1.012 Urine Protein Negative Urine Glucose (UA) Negative Urine Ketones Negative Urine Blood Negative Urine Nitrite Negative Urine Bilirubin Negative Urine Urobilinogen Negative Ur Leukocyte Esterase Negative Stool Occult Blood RPR Titer Blood Type Antibody Screen Crossmatch 08/27/18 08/27/18 08/27/18 11:40 11:40 16:45 WBC RBC Hgb Hct MCV MCH MCHC RDW Plt Count MPV Absolute Neuts (auto) Neutrophils % Lymphocytes % Monocytes % Eosinophils % Basophils % Nucleated RBC % ESR PT with INR INR PTT (Actin FS) Sodium 141 Potassium 3.2 L Chloride 100 Carbon Dioxide 29 Anion Gap 12 BUN 51 H Creatinine 1.3 Creat Clearance w eGFR 52.22 Random Glucose 105 Calcium 8.2 L Phosphorus Magnesium Total Bilirubin 0.7 AST 43 H ALT 22 Alkaline Phosphatase 122 H Creatine Kinase 101 Troponin I 0.05 Total Protein 6.6 Albumin 3.0 L Vitamin B12 TSH Urine Color Urine Appearance Urine pH Ur Specific Oliver Urine Protein Urine Glucose (UA) Urine Ketones Urine Blood Urine Nitrite Urine Bilirubin Urine Urobilinogen Ur Leukocyte Esterase Stool Occult Blood Negative RPR Titer Blood Type A POSITIVE Antibody Screen Negative Crossmatch See Detail 08/27/18 08/27/18 08/28/18 20:10 20:10 05:30 WBC 3.2 L RBC 2.20 L Hgb 7.5 L Hct 21.7 L MCV 98.9 H MCH 34.4 H MCHC 34.7 RDW 17.0 H Plt Count 184 MPV 7.5 Absolute Neuts (auto) Neutrophils % Lymphocytes % Monocytes % Eosinophils % Basophils % Nucleated RBC % ESR PT with INR INR PTT (Actin FS) Sodium 144 Potassium 3.3 L Chloride 106 Carbon Dioxide 30 Anion Gap 8 BUN 43 H Creatinine 1.1 Creat Clearance w eGFR > 60 Random Glucose 84 Calcium 8.2 L Phosphorus 3.1 Magnesium 2.5 H Total Bilirubin AST ALT Alkaline Phosphatase Creatine Kinase Troponin I Total Protein Albumin Vitamin B12 463 TSH 3.62 D Urine Color Urine Appearance Urine pH Ur Specific Oliver Urine Protein Urine Glucose (UA) Urine Ketones Urine Blood Urine Nitrite Urine Bilirubin Urine Urobilinogen Ur Leukocyte Esterase Stool Occult Blood RPR Titer Blood Type Antibody Screen Crossmatch 08/28/18 08/28/18 08/28/18 05:30 05:30 05:30 WBC RBC Hgb Hct MCV MCH MCHC RDW Plt Count MPV Absolute Neuts (auto) Neutrophils % Lymphocytes % Monocytes % Eosinophils % Basophils % Nucleated RBC % ESR 64 H PT with INR 17.60 H INR 1.49 H PTT (Actin FS) 48.8 H Sodium Potassium Chloride Carbon Dioxide Anion Gap BUN Creatinine Creat Clearance w eGFR Random Glucose Calcium Phosphorus Magnesium Total Bilirubin AST ALT Alkaline Phosphatase Creatine Kinase Troponin I Total Protein Albumin Vitamin B12 TSH Urine Color Urine Appearance Urine pH Ur Specific Oliver Urine Protein Urine Glucose (UA) Urine Ketones Urine Blood Urine Nitrite Urine Bilirubin Urine Urobilinogen Ur Leukocyte Esterase Stool Occult Blood RPR Titer Nonreactive Blood Type Antibody Screen Crossmatch 08/28/18 05:30 WBC 3.3 L RBC 2.40 L Hgb 7.8 L Hct 23.4 L MCV 97.4 H MCH 32.3 MCHC 33.2 RDW 18.1 H Plt Count 158 MPV 7.6 Absolute Neuts (auto) 2.3 Neutrophils % 71.6 Lymphocytes % 20.4 Monocytes % 6.1 Eosinophils % 1.2 D Basophils % 0.7 Nucleated RBC % 0 ESR PT with INR INR PTT (Actin FS) Sodium Potassium Chloride Carbon Dioxide Anion Gap BUN Creatinine Creat Clearance w eGFR Random Glucose Calcium Phosphorus Magnesium Total Bilirubin AST ALT Alkaline Phosphatase Creatine Kinase Troponin I Total Protein Albumin Vitamin B12 TSH Urine Color Urine Appearance Urine pH Ur Specific Oliver Urine Protein Urine Glucose (UA) Urine Ketones Urine Blood Urine Nitrite Urine Bilirubin Urine Urobilinogen Ur Leukocyte Esterase Stool Occult Blood RPR Titer Blood Type Antibody Screen Crossmatch Problem List - Problems (1) Altered mental status Code(s): R41.82 - ALTERED MENTAL STATUS, UNSPECIFIED Qualifiers: Altered mental status type: unspecified Qualified Code(s): R41.82 - Altered mental status, unspecified (2) CVA (cerebral vascular accident) Code(s): I63.9 - CEREBRAL INFARCTION, UNSPECIFIED (3) Acute exacerbation of CHF (congestive heart failure) Code(s): I50.9 - HEART FAILURE, UNSPECIFIED (4) Anemia Code(s): D64.9 - ANEMIA, UNSPECIFIED Qualifiers: (5) Atrial fibrillation Code(s): I48.91 - UNSPECIFIED ATRIAL FIBRILLATION (6) Atrial fibrillation with rapid ventricular response Code(s): I48.91 - UNSPECIFIED ATRIAL FIBRILLATION (7) Benign prostate hyperplasia Code(s): N40.0 - BENIGN PROSTATIC HYPERPLASIA WITHOUT LOWER URINRY TRACT SYMP (8) Bradycardia Code(s): R00.1 - BRADYCARDIA, UNSPECIFIED (9) Bradycardia Code(s): R00.1 - BRADYCARDIA, UNSPECIFIED (10) Bradycardia with 31-40 beats per minute Code(s): R00.1 - BRADYCARDIA, UNSPECIFIED (11) Cellulitis Code(s): L03.90 - CELLULITIS, UNSPECIFIED Qualifiers: (12) Congestive heart failure (CHF) Code(s): I50.9 - HEART FAILURE, UNSPECIFIED (13) DVT prophylaxis Code(s): LUA1358 - (14) H/O: CVA (cerebrovascular accident) Code(s): Z86.73 - PRSNL HX OF TIA (TIA), AND CEREB INFRC W/O RESID DEFICITS (15) Head injury Code(s): S09.90XA - UNSPECIFIED INJURY OF HEAD, INITIAL ENCOUNTER (16) Hyperlipidemia Code(s): E78.5 - HYPERLIPIDEMIA, UNSPECIFIED (17) Hypothyroidism Code(s): E03.9 - HYPOTHYROIDISM, UNSPECIFIED (18) Idioventricular rhythm Code(s): I44.2 - ATRIOVENTRICULAR BLOCK, COMPLETE (19) Macular degeneration of both eyes Code(s): H35.30 - UNSPECIFIED MACULAR DEGENERATION Qualifiers: Macular degeneration type: nonexudative age-related Nonexudative macular degeneration stage: intermediate dry stage Qualified Code(s): H35.3132 - Nonexudative age-related macular degeneration, bilateral, intermediate dry stage (20) Macular degeneration, age related Code(s): H35.30 - UNSPECIFIED MACULAR DEGENERATION (21) Near syncope Code(s): R55 - SYNCOPE AND COLLAPSE (22) Pleural effusion Code(s): J90 - PLEURAL EFFUSION, NOT ELSEWHERE CLASSIFIED (23) Pleural effusion Code(s): J90 - PLEURAL EFFUSION, NOT ELSEWHERE CLASSIFIED (24) Pneumonia Code(s): J18.9 - PNEUMONIA, UNSPECIFIED ORGANISM (25) RVF (right ventricular failure) Code(s): I50.9 - HEART FAILURE, UNSPECIFIED (26) Renal dysfunction Code(s): N28.9 - DISORDER OF KIDNEY AND URETER, UNSPECIFIED (27) Scrotal blister Code(s): S30.823A - BLISTER (NONTHERMAL) OF SCROTUM AND TESTES, INIT ENCNTR (28) Supratherapeutic INR Code(s): R79.1 - ABNORMAL COAGULATION PROFILE (29) Syncope Code(s): R55 - SYNCOPE AND COLLAPSE (30) Systolic CHF, chronic Code(s): I50.22 - CHRONIC SYSTOLIC (CONGESTIVE) HEART FAILURE (31) Weakness Code(s): R53.1 - WEAKNESS Assessment/Plan 87 y/o gentleman with h/o systolic and diastolic heart failure, HTN, A fib, 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 Plan; conservative rx as per GI and neuro. Agree with stopping AC discussed high the risk of CVA with patient and the bedsite.
--- NOTE | 2018-08-28 12:02 | CONSULT ---
Admitting History and Physical - Primary Care Physician PCP: Manuel Rose - Admission History of Present Illness: Per EMR: An 87 y.o. M w/ PMHx. of A. Fib( On Pradaxa), HTN, CVA(2010), HLD, CHFrEF, Hypothyroidism and Hx. of GI Bleed a few years ago presents to the ED with expressive aphasia, "not feeling himself", and GI bleed. -Suspected Ischemic Stroke CT Head: shows chronic infarcts in left external capsule, no definite acute intracranial pathology. Per Dr. Bueno(consult appreciated) suspicion for left PRODUCE ASSOCIATE occipital stroke Pt is NPO. No PO trials given per Dr. Rose. 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: CVA (2010, right distal MCA occlusion) Cardiovascular: Yes: AFIB, CHF (mild LV systolic dysunction, moderate RV systolic dysfunction), Hyperlipdemia, Pulmonary Hypertension, Other ( pericarditis 1980) Gastrointestinal: Yes: GERD, Hemorrhoids, Peptic Ulcer Disease Renal/: Yes: Renal Inusuff, BPH Heme/Onc: Yes: Anemia Psych: Yes: Anxiety Musculoskeletal: Yes: Osteoarthritis Endocrine: Yes: Hypothyroidism - Past Surgical History Past Surgical History: Yes: Colectomy (partial colectomy for volvulus), Hernia Repair (Left repair 10/2014), Joint Replacement (bilateral THRs 1991), Prostatectomy (1979), Vasectomy (1979) - Smoking History Smoking history: Never smoked Have you smoked in the past 12 months: No - Alcohol/Substance Use Hx Alcohol Use: No History of Substance Use: reports: None - Social History ADL: Independent 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 [employer] History of Recent Travel: No History - Admission Reason For Visit: CVA,ANEMIA - Diagnostics X-ray: Report Reviewed CT Scan: Report Reviewed MRI: Pending - General Mental Status: Alert and Oriented, Awake and Alert, Able to Follow Commands Attention: Distractible, Mild Impairment Head/Neck Control: Fair - Hearing Hearing: Functional Hearing: Normal Hearing Aide: No With Patient: No Speech Evaluation - Communication Primary Language: CHINESE Communication: Yes: Aphasia Oral Expression Ability: Yes: Mild Impairment, Moderate Impairment - Speech Production Able to Make Needs Known: Yes: Mildly Impaired, Moderately Impaired Intelligibility: Yes: WNL - Speech Characteristics Voice Loudness: Normal Voice Pitch: Yes: Normal Voice Phonatory-based Quality: Yes: Normal Speech Pattern: Impaired Speech Clarity: < 75% Nasal Resonance: Normal Articulation: Yes: Precise - Language/Auditory Comprehension Follows: Yes: 1 Stage Simple Commands Observation: Able to respond to yes/no queries: Yes, Yes/No Confusion: Yes ( occasionally), Comprehends Conversational Speech: Yes, Benefits from Slow Speech : Yes, Benefits from Repetiton: Yes - Language/Verbal Expression Aphasia: Yes: Anomia, Paraphrasic Errors, Neologisms, Apraxia, Sound Errors Able to Respond to Simple Queries: Yes: Mildly Impaired, Moderately Impaired Able to Communicate Wants and Needs: Yes: Mildly Impaired, Moderately Impaired Functional Communication Status: Yes: Mildly Impaired, Moderately Impaired - Swallow Evaluation/Bedside Assessment Current Nutritional Intake: NPO Oral Secretions: Yes: WFL Dentition: Yes: Adequate Facial Symmetry at Rest: Symmetrical Facial Symmetry on Retraction: Symmetrical Against Resistance Opening: Normal Against Resistance Closing: Normal Pucker Lips: Normal Smile: Normal Lingual Movement: Symmetric Lingual Speed of Movement: Normal Lingual Movement Strgth Against Opposition: Normal Lingual Movement Characteristics: Normal Velopharyngeal Movement: Normal Laryngeal Movement: Able to Palpate Recommendations - Speech Evaluation, Impression/Plan Impression: Pt is oriented, with sound and word errors, paraphasic errors and neologisms with fair error awareness. Pt frequently attempts to correct errors and becomes frustrated. Pt is able to swallow saliva. No assymetry. No PO trials given.NPO sec bloody stool.
--- NOTE | 2018-08-28 12:33 | PN ---
Teaching Attending Note Name of Resident: Keaton Pinzon ATTENDING PHYSICIAN STATEMENT I saw and evaluated the patient. I reviewed the resident's note and discussed the case with the resident. I agree with the resident's findings and plan as documented. SUBJECTIVE: No fever or chills, he feels his speech and mentation are better. he has no cp or SOB, he has no abd pain or N/V. indicates significant improvement in speech and mentation. No BM over night. just had a bloody BM per RN ( dark blood ) OBJECTIVE: NAD, Awake, can talk in sentences compared to words yesterday, HEENT: dry MM. no facial droop. CV: RRR, 2/6 SM at apex with JVD. Lungs: CATB Abd; mid line surgical scar, no tenderness, NL BS. Ext: LE: varicose veins R > L , edema R> L , hyperpigmenatation . Neuro: speech improved , still with mild degree of word searching. EOMI, round equal pupils, reactive to light . tongue at mid line. nl facial sensation. strength 5/5 in upper and lower extremities proximaly and distally. sensation to light touch NL. 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 1- CVA: neuro exam has improved. -Repeat CT without contrast, as we might need CTA fro abd /pelvis in settingof bleed - hold AC and ASA - avoid hypotension - neuro checks - NPO now, hold speech eval - CUS pending 2- GI bleed with acute blood loss anemia. none over night. this Am , dark bloody BM. - start protonix gtt - if continue to bleed , will obtain CTA - s/p 1 unit of blood last night , will give another one - cont IVF - repeat HB after transfusion and q 6 hr after then . - NPO 3- H/o A fib: - hold BB due to bleed - tele with sinus rhythm, and sinus tachy, likely due to volume depletion . 2 brief episodes of wide complex tachycarida . - hold AC - monitor on tele - keep electrolytes in nL range as has VTACH on tele - if needed can use BB with caution . 4- h/o R systolic/L diastolic heart failure: looks volume depleted - hold diuresis - hold BB 5- h/o Idioventricular rate, s/p PPM . Cont to monitor closely d/w and him
--- NOTE | 2018-08-28 12:58 | PN ---
Physical Exam: SUBJECTIVE: Patient seen and examined. No fevers overnight. Pt. received 1 unit of pRBCs overnight and 1 unit this morning. Pt. had a blood BM this afternoon. OBJECTIVE: Vital Signs Period Temp Pulse Resp BP Sys/Servin Pulse Ox Last 24 Hr 97.2 F-97.9 F 81-112 16-20 98-111/59-65 95-100 GENERAL: The patient is awake, alert, and fully oriented, in no acute distress. HEAD: Normal with no signs of trauma. EYES: PERRL, extraocular movements intact, sclera anicteric, conjunctiva clear. No ptosis. ENT: Ears normal, nares patent, oropharynx clear without exudates, moist mucous membranes. NECK: Trachea midline, full range of motion, supple, JVD+, pulsatile blood vessel in right anterior neck LUNGS: Decreased breath sounds, no wheezes, no crackles, no accessory muscle use. HEART: Regular rate and rhythm, S1, S2 without murmur, rub or gallop. ABDOMEN: Soft, nontender, not distended, normoactive bowel sounds, no guarding, no rebound, no masses, tympanic to percussion. No hepatomegaly or splenomegaly. EXTREMITIES: 2+ dorsal pedal pulses, warm, well-perfused, 5/5 muscle strength. R >L in size and level of erythema. Small ulceration of right lower extremity. No calf tenderness. 1 + edema. NEUROLOGICAL: Cranial nerves II through XII grossly intact. Normal speech, gait not observed. PSYCH: Normal mood, normal affect. SKIN: Warm, dry, extensive erythema R>L in bilateral lower extremity, 3 sec. capillary refill Laboratory Results - last 24 hr 08/27/18 08/27/18 08/27/18 11:40 11:40 16:45 WBC RBC Hgb Hct MCV MCH MCHC RDW Plt Count MPV Absolute Neuts (auto) Neutrophils % Lymphocytes % Monocytes % Eosinophils % Basophils % Nucleated RBC % ESR PT with INR INR PTT (Actin FS) Sodium 141 Potassium 3.2 L Chloride 100 Carbon Dioxide 29 Anion Gap 12 BUN 51 H Creatinine 1.3 Creat Clearance w eGFR 52.22 Random Glucose 105 Calcium 8.2 L Phosphorus Magnesium Total Bilirubin 0.7 AST 43 H ALT 22 Alkaline Phosphatase 122 H Creatine Kinase 101 Troponin I 0.05 Total Protein 6.6 Albumin 3.0 L Vitamin B12 TSH Stool Occult Blood Negative RPR Titer Blood Type A POSITIVE Antibody Screen Negative Crossmatch See Detail 08/27/18 08/27/18 08/28/18 20:10 20:10 05:30 WBC 3.2 L RBC 2.20 L Hgb 7.5 L Hct 21.7 L MCV 98.9 H MCH 34.4 H MCHC 34.7 RDW 17.0 H Plt Count 184 MPV 7.5 Absolute Neuts (auto) Neutrophils % Lymphocytes % Monocytes % Eosinophils % Basophils % Nucleated RBC % ESR PT with INR INR PTT (Actin FS) Sodium 144 Potassium 3.3 L Chloride 106 Carbon Dioxide 30 Anion Gap 8 BUN 43 H Creatinine 1.1 Creat Clearance w eGFR > 60 Random Glucose 84 Calcium 8.2 L Phosphorus 3.1 Magnesium 2.5 H Total Bilirubin AST ALT Alkaline Phosphatase Creatine Kinase Troponin I Total Protein Albumin Vitamin B12 463 TSH 3.62 D Stool Occult Blood RPR Titer Blood Type Antibody Screen Crossmatch 08/28/18 08/28/18 08/28/18 05:30 05:30 05:30 WBC RBC Hgb Hct MCV MCH MCHC RDW Plt Count MPV Absolute Neuts (auto) Neutrophils % Lymphocytes % Monocytes % Eosinophils % Basophils % Nucleated RBC % ESR 64 H PT with INR 17.60 H INR 1.49 H PTT (Actin FS) 48.8 H Sodium Potassium Chloride Carbon Dioxide Anion Gap BUN Creatinine Creat Clearance w eGFR Random Glucose Calcium Phosphorus Magnesium Total Bilirubin AST ALT Alkaline Phosphatase Creatine Kinase Troponin I Total Protein Albumin Vitamin B12 TSH Stool Occult Blood RPR Titer Nonreactive Blood Type Antibody Screen Crossmatch 08/28/18 05:30 WBC 3.3 L RBC 2.40 L Hgb 7.8 L Hct 23.4 L MCV 97.4 H MCH 32.3 MCHC 33.2 RDW 18.1 H Plt Count 158 MPV 7.6 Absolute Neuts (auto) 2.3 Neutrophils % 71.6 Lymphocytes % 20.4 Monocytes % 6.1 Eosinophils % 1.2 D Basophils % 0.7 Nucleated RBC % 0 ESR PT with INR INR PTT (Actin FS) Sodium Potassium Chloride Carbon Dioxide Anion Gap BUN Creatinine Creat Clearance w eGFR Random Glucose Calcium Phosphorus Magnesium Total Bilirubin AST ALT Alkaline Phosphatase Creatine Kinase Troponin I Total Protein Albumin Vitamin B12 TSH Stool Occult Blood RPR Titer Blood Type Antibody Screen Crossmatch Active Medications Current Medications Dextrose/Sodium Chloride (Dextrose 5%-Normal Saline+20 Meq Kcl -) 20 meq in 1, 000 mls @ 42 mls/hr IV ASDIR [facility] Last Admin: 08/28/18 11:12 Dose: 42 mls/hr Potassium Chloride (Potassium Chloride 10 Meq Premix Ivpb -) 10 meq in 100 mls @ 100 mls/hr IVPB Q60M [facility] Stop: 08/28/18 13:29 Last Admin: 08/28/18 10:51 Dose: 100 mls/hr Pantoprazole Sodium 80 mg/ (Sodium Chloride) 100 mls @ 10 mls/hr IVPB Q10H [facility] Home Medications Medication Instructions Recorded Ascorbic Acid [Vitamin C] 500 mg PO DAILY 08/05/18 Atorvastatin Ca [Lipitor] 0 mg PO ASDIR 08/05/18 Beta-Carotene(A) W-C and E/Min 1 tab PO DAILY 08/05/18 [Ocuvite (Nf)] Dabigatran Etexilate Mesylate 150 mg PO BID 08/05/18 [Pradaxa -] Famotidine [Pepcid] 40 mg PO ASDIR 08/05/18 Ferrous Sulfate [Feosol] 325 mg PO DAILY 08/05/18 Furosemide [Lasix] 80 mg PO BID 08/05/18 Levothyroxine [Synthroid -] 100 mcg PO DAILY 08/05/18 Metolazone [Zaroxolyn -] 2.5 mg PO DAILY 08/05/18 Metoprolol Tartrate [Lopressor -] 25 mg PO BID 08/05/18 Potassium Chloride 0 meq PO BID 08/05/18 ASSESSMENT/PLAN: An 87 y.o. M w/ PMHx. of A. Fib( On Pradaxa), HTN, CVA(2010), HLD, CHFrEF, Hypothyroidism and Hx. of GI Bleed a few years ago presents to the ED with expressive aphasia, "not feeling himself", and GI bleed. -Suspected Ischemic Stroke CT Head: shows chronic infarcts in left external capsule, no definite acute intracranial pathology. Per Dr. Bueno(consult appreciated) suspicion for left POULTRY VACCINATOR occipital stroke f/u Rpt. CT Head not a candidate for A/C or tPA as Pt. has ongoing GI bleed, recent PPM surgery ( 3 weeks ago) and has stroke like symptoms while on Pradaxa. -Anemia 2/2 GI bleed superimposed on chronic anemia HgB 11-->8.0-->7.5--> 1 unit pRBC-->7.8--> 1 unit pRBC transfusion threshold is 8.0 Initial INR no admission was 5.1-->1.74 Pt. takes Ferosol at home Hx. of GI bleed in past last colonospcopy unremarkable per . consult for Dr. Murphy appreciated, can do CTA if GI bleeding persists started Protonix ggt incase this is an UGI bleed. -A.fib hold anticoagulation in setting of GI bleed Echo shows: EF-55-60%, RV,LA and RA severely dilated, mild MVP, severe TR, pulm. artery pressure of 46mmHg Telemetry monitoring hold metoprolol in setting of low BP, can use digoxin if tachycardia becomes a problem, can also use BB with close monitoring of BP. 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 Jewell ([phone]) and PCP about anticoagulation and medication doses will f/u with [facility] for medical records Dr. Stewart is the artificial plastic eye maker that placed the PPM. -HTN hold BP meds as patient's BP is low-normal -CHFrEF Echo 08/26 appreciated as noted above monitor volume status hold Lasix will reassess tomorrow -F/E/N D/c-ed LR, started D5-NS w/ 20meq @ 42ml/hr for volume resuscitation with mindfulness of CHF replete potassium as needed, chronically hypokalemic NPO in setting of GI bleed -DVT Ppx. SCDs hold AC in setting of GI bleed Visit type - Emergency Visit Emergency Visit: Yes ED Registration Date: 08/27/18 Care time: The patient presented to the Emergency Department on the above date and was hospitalized for further evaluation of their emergent condition. - New Patient This patient is new to me today: No - Critical Care Critical Care patient: No - Discharge Referral Referred to [facility] Med P.C.: No
[2018-08-28 16:38] LABS: ANION GAP 8 MMOL/L (8-16); BLOOD UREA NITROGEN 39 mg/dL (7-18); CALCIUM 8.1 mg/dL (8.5-10.1); CHLORIDE 108 mmol/L (98-107); CO2 29 mmol/L (21-32); CREATININE 1.2 mg/dL (0.55-1.3); GLUCOSE,RANDOM 89 mg/dL (74-106); POTASSIUM 3.4 mmol/L (3.5-5.1); SODIUM 145 mmol/L (136-145)
--- NOTE | 2018-08-28 16:44 | PN ---
Progress Note, Physician History of Present Illness: events noted on chart reviewed Patient is on telemetry Since last night no significant change Patient was evaluated by the apprentice carpenter and the credit adjuster Patient still with active bleeding No report of any headache or confusion Patient is on telemetry Still waiting the records from [facility] Results of the CAT scan of the head were noted I'm going to proceed by clarifying the issue with the pacemaker for safety with the MRI - Current Medication List Current Medications: Active Medications Dextrose/Sodium Chloride (Dextrose 5%-Normal Saline+20 Meq Kcl -) 20 meq in 1, 000 mls @ 42 mls/hr IV ASDIR NEIL Last Admin: 08/28/18 11:12 Dose: 42 mls/hr Pantoprazole Sodium 80 mg/ (Sodium Chloride) 100 mls @ 10 mls/hr IVPB Q10H NEIL - Objective Vital Signs: Vital Signs Temperature 97.9 F 08/28/18 12:00 Pulse Rate 100 H 08/28/18 12:00 Respiratory Rate 20 08/28/18 12:00 Blood Pressure 106/65 08/28/18 12:00 O2 Sat by Pulse Oximetry (%) 100 08/28/18 09:00 Constitutional: Yes: Well Nourished Eyes: Yes: WNL HENT: Yes: WNL Neurological: Yes: Alert, Oriented Labs: CBC, BMP 08/28/18 05:30 08/28/18 15:15 INR, PTT INR 1.49 (0.83-1.09) H 08/28/18 05:30 Problem List - Problems (1) CVA (cerebral vascular accident) Assessment/Plan: follow-up the results of the GI workup CAT scan of the abdomen Physical therapy SCDs DVT prophylaxis Code(s): I63.9 - CEREBRAL INFARCTION, UNSPECIFIED
[2018-08-28] MEDS: PANTOPRAZOLE SODIUM 80 MG in SODIUM CHLORIDE 100 ML IVPB SCH ×2 (18:39→22:30)
--- NOTE | 2018-08-28 18:45 | PN ---
GI Progress Note Subjective: Received 2nd unit of PRBC this evening. Per the nurse it finished 10 minutes ago. Last bloody BM this morning Seems more awake when compared to yesterday Advised by medical coding specialist this evening that Mr. Strange was cleared by neurology for procedures and that he is not having an acute CVA - Objective Vital Signs: Vital Signs Temperature 97.4 F 08/28/18 18:42 Pulse Rate 117 H 08/28/18 18:42 Respiratory Rate 20 08/28/18 18:42 Blood Pressure 115/74 08/28/18 18:42 O2 Sat by Pulse Oximetry (%) 100 08/28/18 09:00 Constitutional: Calm Eyes: No: Sclera Icterus Cardiovascular: Yes: Tachycardia Respiratory: Yes: CTA Bilaterally Gastrointestinal Inspection: No: Distention ...Auscultate: Yes: Normoactive Bowel Sounds ...Palpate: Yes: Hepatomegaly (fullness RUQ), Soft. No: Tenderness ...Percussion: No: Tympanitic Extremities: Yes: Other (stasis changes) Neurological: Yes: Alert (oriented x person, place and partially to time (knows month, not the year)) Labs: CBC, BMP 08/28/18 05:30 08/28/18 15:15 INR, PTT INR 1.49 (0.83-1.09) H 08/28/18 05:30 Problem List - Problems (1) GI bleed Assessment/Plan: Last Bloody BM was this morning per nursing. Has received 2 units PRBC total. No repeat CBC as of yet. Last pradaxa given monday evening Advise: Evaluation of tachycardia. Unclear if this is all from blood loss. If so, needs continued resuscitation prior to attempt at bowel prep. Discussed with medical coding specialist. If continued overt rectal bleeding, CTA of abdomen and pelvis. Obtain surgical evaluation to have on standby Await repeat CBC Continue PPI drip Transfer to ICU. would prefer ICU setting for bowel prep Placed call to discuss case with Dr. Bueno to discuss case. Awaiting call back. Had discussion with Ms. Strange this evening. If it appears patient stable enough can have EGD and possible colonoscopy with rapid prep through NGT tomorrow. Discussed potential risks of the procedures like but not limited to bleeding, perforation requiring surgery to repair, infection. sedation medication effects, all of which could be potentially life threatening. She has agreed to the procedures. Discussed with medical coding specialist Code(s): K92.2 - GASTROINTESTINAL HEMORRHAGE, UNSPECIFIED
[2018-08-28 20:16] LABS: HEMATOCRIT 25.5 % (35.4-49); MCH 33.4 pg (25.7-33.7); MCHC 35.4 g/dl (32.0-35.9); MEAN CELL VOLUME 94.6 fl (80-96); MEAN PLT VOLUME 7.7 fl (7.5-11.1); PLATELET COUNT 189 K/MM3 (134-434); RBC 2.69 M/mm3 (4.00-5.60); RDW 18.9 % (11.9-15.9); WHITE BLOOD COUNT 3.5 K/mm3 (4.0-10.0)
[2018-08-29] MEDS ORDERED: METOPROLOL TARTRATE 5 MG/5 ML VIAL IVPUSH ONE ×4 (04:14→16:55)
[2018-08-29 07:33] LABS: HEMATOCRIT 22.9 % (35.4-49); HEMOGLOBIN 8.1 GM/dL (11.7-16.9); MCH 33.8 pg (25.7-33.7); MCHC 35.6 g/dl (32.0-35.9); MEAN PLT VOLUME 7.9 fl (7.5-11.1); PLATELET COUNT 164 K/MM3 (134-434); RBC 2.41 M/mm3 (4.00-5.60); WHITE BLOOD COUNT 3.2 K/mm3 (4.0-10.0)
[2018-08-29] MEDS: PANTOPRAZOLE SODIUM 80 MG in SODIUM CHLORIDE 100 ML IVPB SCH ×3 (08:09→23:28)
--- NOTE | 2018-08-29 08:17 | PN ---
Progress Note (short form) - Note Progress Note: Scant amount of bleeding reported overnight. Hgb 9 after transfusions. Spoke with Dr. Bueno. He feels that clinically Mr. Strange had an acute CVA despite CT scan findings. Awaiting clearance for procedures / sedation. Awaiting transfer to ICU. Problem List - Problems (1) GI bleed Code(s): K92.2 - GASTROINTESTINAL HEMORRHAGE, UNSPECIFIED
[2018-08-29 08:25] LABS: BLOOD UREA NITROGEN 35 mg/dL (7-18); CREATININE 1.1 mg/dL (0.55-1.3); GLUCOSE,RANDOM 94 mg/dL (74-106)
[2018-08-29 08:26] LABS: ANION GAP 8 MMOL/L (8-16); CALCIUM 7.9 mg/dL (8.5-10.1); CHLORIDE 111 mmol/L (98-107); CO2 27 mmol/L (21-32); MAGNESIUM 2.5 mg/dL (1.8-2.4); PHOSPHOROUS 2.7 mg/dL (2.5-4.9); POTASSIUM 3.4 mmol/L (3.5-5.1); SODIUM 146 mmol/L (136-145)
--- NOTE | 2018-08-29 08:26 | PN ---
Teaching Attending Note Name of Resident: Keaton Pinzon ATTENDING PHYSICIAN STATEMENT I saw and evaluated the patient. I reviewed the resident's note and discussed the case with the resident. I agree with the resident's findings and plan as documented. SUBJECTIVE: patient is comfortable with no acute distress. No nausea or vomiting. no hematochezia. is at bedside . OBJECTIVE: Vital Signs Temperature 98.4 F 08/29/18 06:00 Pulse Rate 110 H 08/29/18 06:00 Respiratory Rate 20 08/29/18 06:00 Blood Pressure 123/87 08/29/18 06:00 O2 Sat by Pulse Oximetry (%) 100 08/28/18 20:16 GENERAL: The patient is awake, alert, and fully oriented, in no acute distress. HEAD: Normal with no signs of trauma. EYES: PERRL, extraocular movements intact, sclera anicteric, conjunctiva clear. ENT: Ears normal, oropharynx clear without exudates, moist mucous membranes. NECK: Trachea midline, full range of motion, supple, JVD+, pulsatile blood vessel in right anterior neck LUNGS: Decreased breath sounds, no wheezes, no crackles, no accessory muscle use. HEART: Regular rate and rhythm, S1, S2 without murmur, rub or gallop. ABDOMEN: Soft, nontender, ND, normoactive bowel sounds, no guarding, no rebound , no masses. EXTREMITIES: 2+ dorsal pedal pulses, warm, well-perfused. edema trace. NEUROLOGICAL: Cranial nerves II through XII grossly intact. Normal speech, gait not observed. PSYCH: Normal mood, normal affect. SKIN: Warm, dry, no rash noted. CBCD WBC 3.2 K/mm3 (4.0-10.0) L 08/29/18 05:30 RBC 2.41 M/mm3 (4.00-5.60) L 08/29/18 05:30 Hgb 8.1 GM/dL (11.7-16.9) L 08/29/18 05:30 Hct 22.9 % (35.4-49) L 08/29/18 05:30 MCV 95.0 fl (80-96) 08/29/18 05:30 MCHC 35.6 g/dl (32.0-35.9) 08/29/18 05:30 RDW 19.0 % (11.9-15.9) H 08/29/18 05:30 Plt Count 164 K/MM3 (134-434) 08/29/18 05:30 MPV 7.9 fl (7.5-11.1) 08/29/18 05:30 CMP Sodium 146 mmol/L (136-145) H 08/29/18 05:30 Potassium 3.4 mmol/L (3.5-5.1) L 08/29/18 05:30 Chloride 111 mmol/L (98-107) H 08/29/18 05:30 Carbon Dioxide 27 mmol/L (21-32) 08/29/18 05:30 Anion Gap 8 MMOL/L (8-16) 08/29/18 05:30 BUN 35 mg/dL (7-18) H 08/29/18 05:30 Creatinine 1.1 mg/dL (0.55-1.3) 08/29/18 05:30 Creat Clearance w eGFR > 60 (>60) 08/29/18 05:30 Random Glucose 94 mg/dL (74-106) 08/29/18 05:30 Calcium 7.9 mg/dL (8.5-10.1) L 08/29/18 05:30 Total Bilirubin 0.7 mg/dL (0.2-1) 08/27/18 11:40 AST 43 U/L (15-37) H 08/27/18 11:40 ALT 22 U/L (13-61) 08/27/18 11:40 Alkaline Phosphatase 122 U/L (45-117) H 08/27/18 11:40 Total Protein 6.6 g/dl (6.4-8.2) 08/27/18 11:40 Albumin 3.0 g/dl (3.4-5.0) L 08/27/18 11:40 CARDIAC ENZYMES Creatine Kinase 101 IU/L (26-308) 08/27/18 11:40 Troponin I 0.05 ng/ml (0.00-0.05) 08/27/18 11:40 Current Medications Generic Name Dose Route Start Last Admin Trade Name Freq PRN Reason Stop Dose Admin Dextrose/Sodium Chloride 20 meq in 1,000 mls @ 42 mls/hr 08/28/18 10:15 08/28 11:12 Dextrose 5%-Normal Saline+20 Meq Kcl - IV 42 mls/hr ASDIR NEIL Administration Pantoprazole Sodium 80 mg/ 100 mls @ 10 mls/hr 08/28/18 12:30 08/28/18 22:30 Sodium Chloride IVPB Not Given Q10H NEIL 8 MG/HR Home Medications Medication Instructions Recorded Ascorbic Acid [Vitamin C] 500 mg PO DAILY 08/05/18 Atorvastatin Ca [Lipitor] 10 mg PO ASDIR 08/05/18 Beta-Carotene(A) W-C and E/Min 1 tab PO DAILY 08/05/18 [Ocuvite (Nf)] Dabigatran Etexilate Mesylate 150 mg PO BID 08/05/18 [Pradaxa -] Famotidine [Pepcid] 40 mg PO ASDIR 08/05/18 Ferrous Sulfate [Feosol] 325 mg PO DAILY 08/05/18 Furosemide [Lasix] 80 mg PO BID 08/05/18 Levothyroxine [Synthroid -] 100 mcg PO DAILY 08/05/18 Metolazone [Zaroxolyn -] 2.5 mg PO DAILY 08/05/18 Metoprolol Tartrate [Lopressor -] 25 mg PO BID 08/05/18 Potassium Chloride 20 meq PO 5XD 08/05/18 ASSESSMENT AND PLAN: Patient is a 87y/o gentleman with h/o systolic and diastolic heart failure, HTN , A fib, 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 # Acute CVA with aphasia : improved. might need abdominal/pelvis CTA in setting of bleed , will continue to hold AC and ASA, neuro checks , npo for now since going for EGD. #Acute GI bleed with acute blood loss anemia. no obvious bleeding at this time but H/H dropped , patient is going for EGD, repeat h/h is 8.1 will repeat at 12: 30PM Continue on protonix gtt, s/p one unit blood. NPO for now. Discussed with GI, . # H/x A fib: hold BB to avoid hypotension , due to bleed, brief episodes of wide complex tachycardia . hold AC, monitor on tele, keep electrolytes in nL range as has VTACH on tele , Lopressor 5mg IV prn q6h. #H/x of R systolic/L diastolic heart failure: continue to hold Diuretics and BB. #H/x of Idioventricular rate, s/p PPM . DVT Px: Scds
[2018-08-29] MEDS ORDERED: POTASSIUM CHLORIDE 20 MEQ PREMIX IVPB 100 ML IVPB ONE (08:50)
--- NOTE | 2018-08-29 09:02 | PN ---
Progress Note (short form) - Note Progress Note: Events noted Chart reviewed Spoke to GI last night Patient still with active GI bleeding questionable source Patient off Ac and antiplatelet Patient still with low H and H despite transfusion Patient needs GI intervention to detect and cleah source There is no other explanation for ams beside what I see as subacute occipital CVA Neurologically patient is cleared for sedation for the GI procedure Patient needs critical care setting Case discussed with GI Problem List - Problems (1) CVA (cerebral vascular accident) Code(s): I63.9 - CEREBRAL INFARCTION, UNSPECIFIED
[2018-08-29] MEDS ORDERED: PT OWN MED DRAWER 7, Y5N ONE (09:58)
--- NOTE | 2018-08-29 10:04 | PN ---
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 Pt presents this a.m with improved oral expression. Speech is still slurred but intelligible. Pt has been getting ice chips for hydration with no s/s aspiration. Pt reports "having the feeling of needing the bathroom." Recommendations: Continue NPO status at this time. Monitor for improved speech and language. FOAM GUN OPERATOR to follow up.
--- NOTE | 2018-08-29 10:09 | PN ---
Physical Exam: SUBJECTIVE: Patient seen and examined. Pt. received 1 unit pRBCs overnight ( total of 2 during this hospital course). Right arm IV infiltrated which caused right arm swelling. Pt. went tachy to 150s overnight and was given Lopressor 5mg IVP to good effect. Pt. did have bloody BM overnight that the overnight characterized as minimal. Pt. complaining of dry throat but denies any other complaints. OBJECTIVE: Vital Signs Period Temp Pulse Resp BP Sys/Servin Pulse Ox Last 24 Hr 97.8 F-98.8 F 100-125 18-20 106-126/58-87 100 GENERAL: The patient is awake, alert, and fully oriented, in no acute distress but frustrated at not finding words. HEAD: Normal with no signs of trauma. EYES: PERRL, extraocular movements intact, sclera anicteric, conjunctiva clear. No ptosis. ENT: Ears normal, nares patent, oropharynx clear without exudates, Dry mucous membranes including throat. LUNGS: Breath sounds equal, clear to auscultation bilaterally, no wheezes, no crackles, no accessory muscle use. HEART: Tachycardic, irregular rate and rhythm, S1, S2 without murmur ABDOMEN: Soft, nontender, nondistended, normoactive bowel sounds, no guarding, no rebound, dull to percussion EXTREMITIES: 2+ dorsal pedal and right arm pulses, right arm swelling, no calf tenderness, warm, well-perfused, no edema R>L for lower extremity w/ erythema unchanged from yesterday, 5/5 muscle strength in all extremities. NEUROLOGICAL: Cranial nerves II through XII grossly intact. Expressive aphasia, gait not observed. PSYCH: Normal mood, normal affect. SKIN: Warm, dry, normal turgor Laboratory Results - last 24 hr 08/27/18 08/28/18 08/28/18 11:40 05:30 15:15 WBC RBC Hgb Hct MCV MCH MCHC RDW Plt Count MPV ESR 64 H Sodium 145 Potassium 3.4 L Chloride 108 H Carbon Dioxide 29 Anion Gap 8 BUN 39 H Creatinine 1.2 Creat Clearance w eGFR 57.27 Random Glucose 89 Calcium 8.1 L Phosphorus Magnesium Blood Type A POSITIVE Antibody Screen Negative Crossmatch See Detail 08/28/18 08/29/18 08/29/18 19:25 05:30 05:30 WBC 3.5 L 3.2 L RBC 2.69 L 2.41 L Hgb 9.0 L 8.1 L Hct 25.5 L 22.9 L MCV 94.6 95.0 MCH 33.4 33.8 H MCHC 35.4 35.6 RDW 18.9 H 19.0 H Plt Count 189 164 MPV 7.7 7.9 ESR Sodium 146 H Potassium 3.4 L Chloride 111 H Carbon Dioxide 27 Anion Gap 8 BUN 35 H Creatinine 1.1 Creat Clearance w eGFR > 60 Random Glucose 94 Calcium 7.9 L Phosphorus 2.7 Magnesium 2.5 H Blood Type Antibody Screen Crossmatch Active Medications Current Medications Pantoprazole Sodium 80 mg/ (Sodium Chloride) 100 mls @ 10 mls/hr IVPB Q10H NEIL Last Admin: 08/29/18 08:09 Dose: 10 mls/hr Potassium Chloride (Potassium Chloride 10 Meq Premix Ivpb -) 10 meq in 100 mls @ 100 mls/hr IVPB Q1H NEIL Stop: 08/29/18 13:59 Last Admin: 08/29/18 11:30 Dose: 100 mls/hr Metoprolol Tartrate (Lopressor Injection -) 5 mg IVPUSH Q4H [facility] Home Medications Medication Instructions Recorded Ascorbic Acid [Vitamin C] 500 mg PO DAILY 08/05/18 Atorvastatin Ca [Lipitor] 10 mg PO ASDIR 08/05/18 Beta-Carotene(A) W-C and E/Min 1 tab PO DAILY 08/05/18 [Ocuvite (Nf)] Dabigatran Etexilate Mesylate 150 mg PO BID 08/05/18 [Pradaxa -] Famotidine [Pepcid] 40 mg PO ASDIR 08/05/18 Ferrous Sulfate [Feosol] 325 mg PO DAILY 08/05/18 Furosemide [Lasix] 80 mg PO BID 08/05/18 Levothyroxine [Synthroid -] 100 mcg PO DAILY 08/05/18 Metolazone [Zaroxolyn -] 2.5 mg PO DAILY 08/05/18 Metoprolol Tartrate [Lopressor -] 25 mg PO BID 08/05/18 Potassium Chloride 20 meq PO 5XD 08/05/18 ASSESSMENT/PLAN: An 87 y.o. M w/ PMHx. of A. Fib( On Pradaxa), HTN, CVA(2010), HLD, CHFrEF, Hypothyroidism and Hx. of GI Bleed a few years ago presents to the ED with expressive aphasia, "not feeling himself", and GI bleed. -Suspected Ischemic Stroke CT Head: shows chronic infarcts in left external capsule, no definite acute intracranial pathology. Per Dr. Bueno(consult appreciated) suspicion for left ADMINISTRATIVE SUPPORT SPECIALIST occipital stroke Rpt. CT Head shows no interval change from 1st CT head. not a candidate for A/C or tPA as Pt. has ongoing GI bleed, recent PPM surgery ( 3 weeks ago) and has stroke like symptoms while on Pradaxa. -Anemia 2/2 GI bleed superimposed on chronic anemia HgB 11-->8.0-->7.5--> 1 unit pRBC-->7.8--> 1 unit pRBC transfusion threshold is 8.0 f/u Endoscopy that was done this afternoon Pt. takes Ferosol at home Hx. of GI bleed in past last colonospcopy unremarkable per . consult for Dr. Murphy appreciated, can do CTA if GI bleeding persists started Protonix ggt incase this is an UGI bleed. Initial INR no admission was 5.1-->1.74 -A.fib hold anticoagulation in setting of GI bleed Echo shows: EF-55-60%, RV,LA and RA severely dilated, mild MVP, severe TR, pulm. artery pressure of 46mmHg Telemetry monitoring hold metoprolol in setting of low BP, can use digoxin if tachycardia becomes a problem, can also use BB with close monitoring of BP. Home waste collector Dr. Jewell ([phone]) and PCP about anticoagulation and medication doses will f/u with [facility] for medical records Dr. Stewart is the waste collector that placed the PPM. -HTN hold BP meds as patient's BP is low-normal -CHFrEF Echo 08/26 appreciated as noted above monitor volume status hold Lasix will reassess tomorrow -F/E/N D/c-ed LR, started D5-NS w/ 20meq @ 42ml/hr for volume resuscitation with mindfulness of CHF replete potassium as needed, chronically hypokalemic NPO in setting of GI bleed -DVT Ppx. SCDs hold AC in setting of GI bleed Visit type - Emergency Visit Emergency Visit: Yes ED Registration Date: 08/27/18 Care time: The patient presented to the Emergency Department on the above date and was hospitalized for further evaluation of their emergent condition. - New Patient This patient is new to me today: No - Critical Care Critical Care patient: No - Discharge Referral Referred to [facility] No
--- NOTE | 2018-08-29 10:11 | PN ---
Progress Note (short form) - Note Progress Note: Spoke with Dr. Riggins today. Taking into account 1/2 life of pradaxa and patient 's renal function, there would thoretically be a low level (<10%) of Pradaxa still within Mr. Strange's system. He did not recommend reversal agent at this time. HR in 150's again this morning. I spoke with Dr. Donahue. Patient being evaluated by primary team regarding rate control. Last scant bleeding described last night. Repeat CBC at noon, Plan for possible EGD in AM. Plan as outlined previously. If bleeding persists and no upper GI source, CTA and IR evaluation for embolization. Surgery consult placed last night. Problem List - Problems (1) GI bleed Code(s): K92.2 - GASTROINTESTINAL HEMORRHAGE, UNSPECIFIED
[2018-08-29] MEDS: KCL 10 MEQ IVPB 10 MEQ/100 ML INFUS.BAG IVPB SCH ×4 (10:12→18:27)
[2018-08-29 10:29] LABS: INR 1.27 (0.83-1.09)
[2018-08-29 10:32] LABS: ACTIVATED PTT 35.6 SECONDS (25.2-36.5)
--- NOTE | 2018-08-29 11:58 | PN ---
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 he went to bed and woke up this am , with same difficulty finding words and felt very fatigue. he denies dysphagia, RYDER , visual abnormalities, weakness , or numbness, or tingling. he usually ambulate with a walker but his gait has become unsteady. he takes pradaxa for A fib, and never missed a dose ( last one yesterday). He had a stroke in 2010 while on coumadin and ws switchex he noticed BRBPR x 3 days now. wihth no abd pain, unable to quantify , but it is a lot. he continued to take pradaxa of note , patient had GI bleed 2 years ago, and was treated at [place] . Had colonoscopy 2-3 years ago and a biopsy was taken. - Current Medication List Current Medications: Active Medications Pantoprazole Sodium 80 mg/ (Sodium Chloride) 100 mls @ 10 mls/hr IVPB Q10H [facility] Last Admin: 08/29/18 08:09 Dose: 10 mls/hr Potassium Chloride (Potassium Chloride 10 Meq Premix Ivpb -) 10 meq in 100 mls @ 100 mls/hr IVPB Q1H [facility] Stop: 08/29/18 13:59 Last Admin: 08/29/18 10:12 Dose: 100 mls/hr - Objective Vital Signs: Vital Signs Temperature 98.3 F 08/29/18 10:00 Pulse Rate 142 H 08/29/18 10:00 Respiratory Rate 20 08/29/18 10:00 Blood Pressure 111/77 08/29/18 10:00 O2 Sat by Pulse Oximetry (%) 100 08/29/18 09:00 Eyes: Yes: WNL, Conjunctiva Clear, EOM Intact HENT: Yes: WNL, Atraumatic, Normocephalic Neck: Yes: WNL, Supple, Trachea Midline Cardiovascular: Yes: WNL, Pulse Irregular Respiratory: Yes: WNL, Regular, CTA Bilaterally Gastrointestinal: Yes: WNL, Normal Bowel Sounds Genitourinary: Yes: WNL Musculoskeletal: Yes: WNL Extremities: Yes: WNL Edema: No Edema: RUE: 3+ Integumentary: Yes: WNL Neurological: Yes: WNL, Alert, Oriented ...Motor Strength: WNL Psychiatric: Yes: WNL Labs: CBC, BMP 08/29/18 05:30 08/29/18 05:30 INR, PTT INR 1.27 (0.83-1.09) H 08/29/18 09:30 Problem List - Problems (1) Altered mental status Code(s): R41.82 - ALTERED MENTAL STATUS, UNSPECIFIED Qualifiers: Altered mental status type: unspecified Qualified Code(s): R41.82 - Altered mental status, unspecified (2) CVA (cerebral vascular accident) Code(s): I63.9 - CEREBRAL INFARCTION, UNSPECIFIED (3) Acute exacerbation of CHF (congestive heart failure) Code(s): I50.9 - HEART FAILURE, UNSPECIFIED (4) Anemia Code(s): D64.9 - ANEMIA, UNSPECIFIED Qualifiers: (5) Atrial fibrillation Code(s): I48.91 - UNSPECIFIED ATRIAL FIBRILLATION (6) Atrial fibrillation with rapid ventricular response Code(s): I48.91 - UNSPECIFIED ATRIAL FIBRILLATION (7) Benign prostate hyperplasia Code(s): N40.0 - BENIGN PROSTATIC HYPERPLASIA WITHOUT LOWER URINRY TRACT SYMP (8) Bradycardia Code(s): R00.1 - BRADYCARDIA, UNSPECIFIED (9) Bradycardia Code(s): R00.1 - BRADYCARDIA, UNSPECIFIED (10) Bradycardia with 31-40 beats per minute Code(s): R00.1 - BRADYCARDIA, UNSPECIFIED (11) Cellulitis Code(s): L03.90 - CELLULITIS, UNSPECIFIED Qualifiers: (12) Congestive heart failure (CHF) Code(s): I50.9 - HEART FAILURE, UNSPECIFIED (13) DVT prophylaxis Code(s): XYU4809 - (14) H/O: CVA (cerebrovascular accident) Code(s): Z86.73 - PRSNL HX OF TIA (TIA), AND CEREB INFRC W/O RESID DEFICITS (15) Head injury Code(s): S09.90XA - UNSPECIFIED INJURY OF HEAD, INITIAL ENCOUNTER (16) Hyperlipidemia Code(s): E78.5 - HYPERLIPIDEMIA, UNSPECIFIED (17) Hypothyroidism Code(s): E03.9 - HYPOTHYROIDISM, UNSPECIFIED (18) Idioventricular rhythm Code(s): I44.2 - ATRIOVENTRICULAR BLOCK, COMPLETE (19) Macular degeneration of both eyes Code(s): H35.30 - UNSPECIFIED MACULAR DEGENERATION Qualifiers: Macular degeneration type: nonexudative age-related Nonexudative macular degeneration stage: intermediate dry stage Qualified Code(s): H35.3132 - Nonexudative age-related macular degeneration, bilateral, intermediate dry stage (20) Macular degeneration, age related Code(s): H35.30 - UNSPECIFIED MACULAR DEGENERATION (21) Near syncope Code(s): R55 - SYNCOPE AND COLLAPSE (22) Pleural effusion Code(s): J90 - PLEURAL EFFUSION, NOT ELSEWHERE CLASSIFIED (23) Pleural effusion Code(s): J90 - PLEURAL EFFUSION, NOT ELSEWHERE CLASSIFIED (24) Pneumonia Code(s): J18.9 - PNEUMONIA, UNSPECIFIED ORGANISM (25) RVF (right ventricular failure) Code(s): I50.9 - HEART FAILURE, UNSPECIFIED (26) Renal dysfunction Code(s): N28.9 - DISORDER OF KIDNEY AND URETER, UNSPECIFIED (27) Scrotal blister Code(s): S30.823A - BLISTER (NONTHERMAL) OF SCROTUM AND TESTES, INIT ENCNTR (28) Supratherapeutic INR Code(s): R79.1 - ABNORMAL COAGULATION PROFILE (29) Syncope Code(s): R55 - SYNCOPE AND COLLAPSE (30) Systolic CHF, chronic Code(s): I50.22 - CHRONIC SYSTOLIC (CONGESTIVE) HEART FAILURE (31) Weakness Code(s): R53.1 - WEAKNESS Assessment/Plan 87 y/o gentleman with h/o systolic and diastolic heart failure, HTN, A fib, 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 AF RVR Anemia Plan; rx as per GI and neuro. Agree with stopping AC discussed high the risk of CVA with patient and the bedsite. may use lopressor IV for rate control. Correct anemia - HCT 22 % most likely contributes to RVR
--- NOTE | 2018-08-29 12:38 | CONSULT ---
Consultation: REQUESTING PROVIDER: Dr. Walters CONSULT REQUEST FOR HEMATOLOGY/ONCOLOGY: We have been asked to medically evaluate this patient for Coagulopathy. HISTORY OF PRESENT ILLNESS: Patient is an 87 year old male with a PMHx of HTN, HLD, Atrial Fibrillation (On Pradaxa), Biventricular systolic heart failure, CVA (2010), hypothyroidism who presented to the hospital for worsening aphasia and AMS with lethargy. Patient was evaluated by neurology and felt he had a left MANAGER STYLIST stroke. According to patient and patients , they noticed bright red blood per rectum on Monday (08/26/18) that worsened the following day. Patient's lab work revealed a Hgb drop from 11 to 8 within three weeks. Patient reports taking his Pradaxa as scheduled with the last dose on Monday (08/26/18) Patient does report a history of GI bleed 2-3 years ago and was evaluated by GI , Dr. Nam, at [facility]. Patient uses a walker to ambulate and denies any recent immobilization or surgery. Denies any family history of blood disorder or him ever being diagnosed with a blood disorder Denies any NSAID use We were consulted to evaluate patient on Risks of GI procedure with last Pradaxa dose taken on Monday (08/26/18) PMHx: Afib HTN HLD CVA CHFrEF Hypothyroidism PSHx: PPM(07/26) B/L Hip replacement() colon surgery that required resection and anastamosis ( few years ago) Social History: Smoking: Denies Alcohol: Denies Drugs: Denies Family History: Mother of Pancreatic cancer (89) Father of [place] (55) REVIEW OF SYSTEMS: CONSTITUTIONAL: Absent: fever, chills, diaphoresis, generalized weakness, malaise, loss of appetite, weight change HEENT: Absent: rhinorrhea, nasal congestion, throat pain, throat swelling, difficulty swallowing, mouth swelling, ear pain, eye pain, visual changes CARDIOVASCULAR: Absent: chest pain, syncope, palpitations, irregular heart rate, lightheadedness , peripheral edema RESPIRATORY: Absent: cough, shortness of breath, dyspnea with exertion, orthopnea, wheezing, stridor, hemoptysis GASTROINTESTINAL: melena, hematochezia Absent: abdominal pain, abdominal distension, nausea, vomiting, diarrhea, constipation, melena, hematochezia GENITOURINARY: Absent: dysuria, frequency, urgency, hesitancy, hematuria, flank pain, genital pain MUSCULOSKELETAL: Absent: myalgia, arthralgia, joint swelling, back pain, neck pain SKIN: Absent: rash, itching, pallor HEMATOLOGIC/IMMUNOLOGIC: Absent: easy bleeding, easy bruising, lymphadenopathy, frequent infections ENDOCRINE: Absent: unexplained weight gain, unexplained weight loss, heat intolerance, cold intolerance NEUROLOGIC: mental status changes Absent: headache, focal weakness or paresthesias, dizziness, unsteady gait, seizure, bladder or bowel incontinence PSYCHIATRIC: Absent: anxiety, depression, suicidal or homicidal ideation, hallucinations. PHYSICAL EXAMINATION Vital Signs - 24 hr 08/28/18 08/28/18 08/28/18 16:00 17:00 20:10 Temperature 97.8 F 98.8 F 98.7 F Pulse Rate 116 H 120 H 125 H Respiratory 20 18 20 Rate Blood Pressure 112/68 126/58 L 125/75 O2 Sat by Pulse Oximetry (%) 08/28/18 08/29/18 08/29/18 20:16 02:08 04:51 Temperature 98.2 F Pulse Rate 120 H 125 H Respiratory 20 Rate Blood Pressure 125/77 123/83 O2 Sat by Pulse 100 Oximetry (%) 08/29/18 08/29/18 08/29/18 06:00 09:00 09:45 Temperature 98.4 F Pulse Rate 110 H 15 L Respiratory 20 20 Rate Blood Pressure 123/87 111/77 O2 Sat by Pulse 100 Oximetry (%) 08/29/18 10:00 Temperature 98.3 F Pulse Rate 142 H Respiratory 20 Rate Blood Pressure 111/77 O2 Sat by Pulse Oximetry (%) GENERAL: Awake, alert, and fully oriented, in no acute distress. HEAD: Normal with no signs of trauma. EYES: Pupils equal, round and reactive to light, extraocular movements intact, sclera anicteric, conjunctiva clear. EARS, NOSE, THROAT: Oropharynx clear without exudates. Dry mucous membranes. NECK: Normal range of motion, supple without lymphadenopathy, JVD, or masses. LUNGS: Expiratory wheezing throughout lung bases. No accessory muscle use. HEART: Tachycardic with Irregularly irregular rhythm, normal S1 and S2 without murmur, rub or gallop. ABDOMEN: Soft, nontender, not distended, normoactive bowel sounds, (+) midline vertical surgical scar, no guarding, no rebound, no masses. No hepatomegaly or splenomegaly. EXTREMITIES: Trace peripheral edema with chronic venous stasis bilaterally R>L NEUROLOGICAL: Cranial nerves II-XII intact. Normal speech PSYCHIATRIC: Cooperative. Good eye contact. Appropriate mood and affect. SKIN: Warm, dry, erythema R>L in bilateral lower extremity, Laboratory Results - last 24 hr 08/27/18 08/28/18 08/28/18 11:40 15:15 19:25 WBC 3.5 L RBC 2.69 L Hgb 9.0 L Hct 25.5 L MCV 94.6 MCH 33.4 MCHC 35.4 RDW 18.9 H Plt Count 189 MPV 7.7 PT with INR INR PTT (Actin FS) Sodium 145 Potassium 3.4 L Chloride 108 H Carbon Dioxide 29 Anion Gap 8 BUN 39 H Creatinine 1.2 Creat Clearance w eGFR 57.27 Random Glucose 89 Calcium 8.1 L Phosphorus Magnesium Blood Type A POSITIVE Antibody Screen Negative Crossmatch See Detail 08/29/18 08/29/18 08/29/18 05:30 05:30 09:30 WBC 3.2 L RBC 2.41 L Hgb 8.1 L Hct 22.9 L MCV 95.0 MCH 33.8 H MCHC 35.6 RDW 19.0 H Plt Count 164 MPV 7.9 PT with INR 15.00 H INR 1.27 H PTT (Actin FS) 35.6 Sodium 146 H Potassium 3.4 L Chloride 111 H Carbon Dioxide 27 Anion Gap 8 BUN 35 H Creatinine 1.1 Creat Clearance w eGFR > 60 Random Glucose 94 Calcium 7.9 L Phosphorus 2.7 Magnesium 2.5 H Blood Type Antibody Screen Crossmatch Active Medications Generic Name Dose Route Start Last Admin Trade Name Freq PRN Reason Stop Dose Admin Pantoprazole Sodium 80 mg/ 100 mls @ 10 mls/hr 08/28/18 12:30 08/29/18 08:09 Sodium Chloride IVPB 10 mls/hr Q10H NEIL Administration 8 MG/HR Potassium Chloride 10 meq in 100 mls @ 100 mls/hr 08/29/18 10:00 08/29/18 11: 30 Potassium Chloride 10 Meq Premix Ivpb - IVPB 08/29/18 13:59 100 mls/hr Q1H NEIL Administration Metoprolol Tartrate 5 mg 08/29/18 12:15 Lopressor Injection - IVPUSH Q4H NEIL ASSESSMENT/PLAN: Patient is an 87 year old male who presented for AMS, aphasia, and rectal bleed. Patient was found to have a CVA and Possible GI bleed. Asked to evaluate patient on risk vs benefit of EGD procedure with patient being on Pradaxa. Problem List: Anemia likely 2/2 to GI bleed with Chronic Anemia Left MANAGER STYLIST stroke Atrial Fibrillation HTN HLD CVA CHFrEF Hypothyroidism PLAN: Pradaxa has a half life with normal kidney function of 12-17 hours but 15-18 hours with mild to moderate renal insufficiency. Patient last took his Pradaxa dose 72 hours ago (Monday08/26/18). Assuming half life is 18 hours in mild to moderate renal insufficiency at this point there is minimal amount of pradaxa on board. Visit type - Emergency Visit Emergency Visit: Yes ED Registration Date: 08/27/18 Care time: The patient presented to the Emergency Department on the above date and was hospitalized for further evaluation of their emergent condition. - New Patient This patient is new to me today: Yes Date on this admission: 08/27/18 - Critical Care Critical Care patient: No
[2018-08-29] MEDS: METOPROLOL TARTRATE 5 MG/5 ML VIAL IVPUSH SCH ×3 (13:33→21:14)
[2018-08-29 13:37] LABS: HEMATOCRIT 25.1 % (35.4-49); HEMOGLOBIN 8.3 GM/dL (11.7-16.9); MCH 31.7 pg (25.7-33.7); MEAN PLT VOLUME 7.5 fl (7.5-11.1); PLATELET COUNT 159 K/MM3 (134-434); RBC 2.61 M/mm3 (4.00-5.60); RDW 19.5 % (11.9-15.9); WHITE BLOOD COUNT 3.9 K/mm3 (4.0-10.0)
[2018-08-29] MEDS ORDERED: SODIUM CHLORIDE 500 ML IV STA (16:25)
--- NOTE | 2018-08-29 16:33 | PN ---
Progress Note (short form) - Note Progress Note: discussed with cardiology. Pt have HR of 134 with Bp 92 /63. Denies chest pain, sob, dizziness, lightheadedness, palpitations. pt has h/o afib and has pace maker. we will give him lopressor 2.5 mg push with IV fluid and will give him one unit of blood as pt has low hematocrit and with be having increase in HR because of fall in his hematocrit.
--- NOTE | 2018-08-29 16:55 | PN ---
Physical Exam: SUBJECTIVE: Patient seen and examined Patient, lethargic and dry appearing, reports feeling "fine." Denies chest pain , shortness of breath, abdominal pain. OBJECTIVE: Vital Signs Period Temp Pulse Resp BP Sys/Servin Pulse Ox Last 24 Hr 97.4 F-98.8 F 15-142 18-20 102-133/56-87 94-100 GENERAL: The patient is awake, alert, and fully oriented HEAD: Normal with no signs of trauma. EYES: PERRLA, extraocular movements intact, sclera anicteric, conjunctiva clear. No ptosis. ENT: dry mucous membranes. NECK: Trachea midline, full range of motion LUNGS: Breath sounds equal, clear to auscultation bilaterally, no wheezes, no crackles, no accessory muscle use. HEART: tachycardic with irregular rhythm, S1, S2 without murmur, rub or gallop. ABDOMEN: Soft, nontender, nondistended, normoactive bowel sounds, no guarding, no rebound, no hepatosplenomegaly, no masses. EXTREMITIES: 2+ pulses, warm, well-perfused, no edema. NEUROLOGICAL: Cranial nerves II through XII grossly intact. Slurred and slow speech SKIN: Warm, dry, normal turgor, no rashes or lesions noted Laboratory Results - last 24 hr 08/27/18 08/27/18 08/28/18 11:40 20:10 19:25 WBC 3.5 L RBC 2.69 L Hgb 9.0 L Hct 25.5 L MCV 94.6 MCH 33.4 MCHC 35.4 RDW 18.9 H Plt Count 189 MPV 7.7 PT with INR INR PTT (Actin FS) Sodium Potassium Chloride Carbon Dioxide Anion Gap BUN Creatinine Creat Clearance w eGFR Random Glucose Calcium Phosphorus Magnesium Homocysteine 15.9 H Crossmatch See Detail 08/29/18 08/29/18 08/29/18 05:30 05:30 09:30 WBC 3.2 L RBC 2.41 L Hgb 8.1 L Hct 22.9 L MCV 95.0 MCH 33.8 H MCHC 35.6 RDW 19.0 H Plt Count 164 MPV 7.9 PT with INR 15.00 H INR 1.27 H PTT (Actin FS) 35.6 Sodium 146 H Potassium 3.4 L Chloride 111 H Carbon Dioxide 27 Anion Gap 8 BUN 35 H Creatinine 1.1 Creat Clearance w eGFR > 60 Random Glucose 94 Calcium 7.9 L Phosphorus 2.7 Magnesium 2.5 H Homocysteine Crossmatch 08/29/18 12:50 WBC 3.9 L RBC 2.61 L Hgb 8.3 L Hct 25.1 L MCV 96.0 MCH 31.7 MCHC 33.0 RDW 19.5 H Plt Count 159 MPV 7.5 PT with INR INR PTT (Actin FS) Sodium Potassium Chloride Carbon Dioxide Anion Gap BUN Creatinine Creat Clearance w eGFR Random Glucose Calcium Phosphorus Magnesium Homocysteine Crossmatch Active Medications Generic Name Dose Route Start Last Admin Trade Name Freq PRN Reason Stop Dose Admin Pantoprazole Sodium 80 mg/ 100 mls @ 10 mls/hr 08/28/18 12:30 08/29/18 08:09 Sodium Chloride IVPB 10 mls/hr Q10H NEIL Administration 8 MG/HR Sodium Chloride 500 mls @ 500 mls/hr 08/29/18 16:25 Normal Saline - IV 08/29/18 17:24 ASDIR STA Metoprolol Tartrate 5 mg 08/29/18 12:15 08/29/18 13:33 Lopressor Injection - IVPUSH 5 mg Q4H NEIL Administration ASSESSMENT/PLAN: 87M PMH of systolic and diastolic heart failure, hypothyroidism, HTN, A fib, prior GI bleed w/ normal colonoscopy (), CVA (in 2010 when on coumadin) , patient currently on Pradaxa (last dose 08/26), 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 Black stools noticed by RN. Admitted to med/surg on 08/27. Patient required 2 units of pRBCs since admission for Hb < 8. 3rd unit administered in ICU 08/29 at 1710 for Hct fall from 36 to 25 and Hb 9 to 8. EGD done 08/29 -showed dried blood and no active bleeding. Despite negative CT - Neurology feels patient clinically had CVA in L G[employer] LEAF [employer] distribution. Pt not a candidate for tPA. Neuro Suspected L [employer] CVA - Negative head CT, however clinically symptomatic for [employer] per Neurology - Speech evaluation for dysphagia and word finding difficulty - Neuro checks Q2H GI UGIB vs LGIB - EGD with unremarkable findings for UGIB, unclear as to source of GIB - Transfusion threshold Hb < 8 - Protonix gtt possible UGIB with PUD on pmhx but unconfirmed by family - Per DiGiorno note: Pradaxa half life of 12-17 with normal kidney function and 15-18 hours with mod renal insuff. likely a low level (<10%) of Pradaxa present in pt. No reversal agent indicated. If bleeding continues w/o UGI cause plan for CTA and IR evaluation for embolization. - INR 1.74 --> 1.24 - Trend Hb Q12H Cardiac Hypotension, systolic/diastolic heart failure, afib - Brief episodes of wide complex tachycardia while on floor - 08/29 @ 1630: pt w/ HR of 134 with Bp 92 /63, asymptomatic. Discussed with cardiology, Lopressor 5mg Q4H - 08/29 @ 1800: patient with paroxysmal Vtach, normotensive - trop, Mg, BMP sent , EKG done - with episodes of vtach, hypotension, tachycardia and history of afib consider amiodarone - will discuss with cardiology - ECHO (08/26) EF 55-60% with severely dilated RV,LA and RA - Home chief revenue officer Dr. Jewell ([phone]) - Tele monitoring - Monitor electrolytes - Hold anticoagulants in setting of GIB - Hold Lasix F/E/N - Started 1/2 NS for volume resuscitation with mindfulness of CHF - Trend K, as history of chronic hypokalemic - NPO, had 1 x melena BM this PM DVT ppx - SCDs - hold AC in setting of GI bleed Visit type - Emergency Visit Emergency Visit: Yes ED Registration Date: 08/27/18 Care time: The patient presented to the Emergency Department on the above date and was hospitalized for further evaluation of their emergent condition. - New Patient This patient is new to me today: Yes Date on this admission: 08/29/18 - Critical Care Critical Care patient: Yes Total Critical Care Time (in minutes): 35 Critical Care Statement: The care of this patient involved high complexity decision making to prevent further life threatening deterioration of the patient 's condition and/or to evaluate & treat vital organ system(s) failure or risk of failure.
[2018-08-29] MEDS ORDERED: SODIUM CHLORIDE 0.45% 1,000 ML IV SCH (17:45)
--- NOTE | 2018-08-29 18:21 | CONSULT ---
Consult Consult Specialty:: General Surgery Referred by:: Dr. 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 He thought initially it was "on the paper," but then realized it was also in the bowl; he had a BM today after returning from EGD but does not know what it looked like. He has had 2 units PRBC since arriving, with another planned for tonight. Hb dropped from 11 couple weeks ago to 8 on admission, had risen to 9, is back to 8 today. 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 Per nursing, EGD today did not identify a bleeding source. Last dose of Pradaxa was Monday am at home. He also has h/o volvulus/ twisted intestines, requiring partial colon resection and colostomy with subsequent reversal. GI requested surgical evaluation, in case of need for operative intervention. Pt is seen and examined in ICU bed, at bedside. He reports feeling better since admission, "I sound coherent now, though I do have trouble finding some words." He does not know if he still has bloody BMs. Denies N/V, abdominal pain , but states his throat is hurting a lot. He is taking ice chips. He wants to know about results of EGD today. 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: CVA (2010, right distal MCA occlusion) Cardio/Vascular: Yes: AFIB, CHF (mild LV systolic dysunction, moderate RV systolic dysfunction), HTN, Hyperlipdemia, Pulmonary Hypertension, Other ( pericarditis 1980) Gastrointestinal: Yes: GERD, GI Bleed, Hemorrhoids, Peptic Ulcer Disease, Other (h/o volvulus s/p resection) Renal/: Yes: Renal Inusuff, BPH Psych: Yes: Anxiety Musculoskeletal: Yes: Osteoarthritis Endocrine: Yes: Hypothyroidism - Past Surgical History Past Surgical History: Yes: Colectomy (partial colectomy for volvulus w/ostomy & reversal), Colonoscopy, Colostomy (and reversal), Hernia Repair (Left repair ; "I had two hernias"), Joint Replacement (bilateral THRs 1991), Permanent Pacemaker (2 wks ago), Prostatectomy (1979), Upper Endoscopy, Vasectomy (1979) Additional Surgical History: PPM - Alcohol/Substance Use Hx Alcohol Use: No History of Substance Use: reports: None - Smoking History Smoking history: Never smoked Have you smoked in the past 12 months: No - Social History Usual Living Arrangement: With Spouse ADL: Independent 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 [employer] History of Recent Travel: No Home Medications - Allergies Allergies/Adverse Reactions: Allergies Allergy/AdvReac Type Severity Reaction Status Date / Time No Known Allergies Allergy Verified 08/27/18 10:41 - Home Medications Home Medications: Ambulatory Orders Ascorbic Acid [Vitamin C] 500 mg PO DAILY 08/05/18 Atorvastatin Ca [Lipitor] 10 mg PO ASDIR 08/05/18 Beta-Carotene(A) W-C and E/Min [Ocuvite (Nf)] 1 tab PO DAILY 08/05/18 Dabigatran Etexilate Mesylate [Pradaxa -] 150 mg PO BID 08/05/18 Famotidine [Pepcid] 40 mg PO ASDIR 08/05/18 Ferrous Sulfate [Feosol] 325 mg PO DAILY 08/05/18 Furosemide [Lasix] 80 mg PO BID 08/05/18 Levothyroxine [Synthroid -] 100 mcg PO DAILY 08/05/18 Metolazone [Zaroxolyn -] 2.5 mg PO DAILY 08/05/18 Metoprolol Tartrate [Lopressor -] 25 mg PO BID 08/05/18 Potassium Chloride 20 meq PO 5XD 08/05/18 Home Medications (free text): last Pradaxa was Monday morning, forgot that evening, came to ER Monday Family Disease History - Family Disease History Family Disease History: Heart Disease: Father (heart disease 72), Other: Mother (ca pancreas 89), Brother (None), Sister (None), Daughter (2, healthy) Other Family History: No family history of colon cancer Review of Systems - Review of Systems Constitutional: reports: Lethargy, Weakness. denies: Chills, Fever Eyes: reports: Recent Change in Vision. denies: Photophobia HENT: reports: Throat Pain (now). denies: Difficult Swallowing Neck: denies: Swollen Glands, Tenderness Cardiovascular: denies: Chest Pain, Palpitations Respiratory: denies: Cough, SOB Gastrointestinal: reports: Melena, Rectal Bleeding. denies: Abdominal Pain, Constipation, Nausea, Vomiting Genitourinary: denies: Burning, Dysuria Musculoskeletal: reports: Joint Swelling (right elbow region, subcutaneous, from infiltrated IV). denies: Joint Pain Integumentary: reports: Erythema (some at right medial elbow region), Incision ( healing at left anterior shoulder with steristrips (from pacemaker)). denies: Rash Neurological: reports: Change in LOC (at time of admission/pre-hospital - feeling better now), Change in Speech (improving), Confusion (improved per pt). denies: Headache Hematology/Lymphatic: reports: Easily Bruised Physical Exam Vital Signs: Vital Signs Temperature 97.4 F L 08/29/18 15:15 Pulse Rate 128 H 08/29/18 16:40 Respiratory Rate 20 08/29/18 15:15 Blood Pressure 110/69 08/29/18 16:40 O2 Sat by Pulse Oximetry (%) 97 08/29/18 15:15 Constitutional: Yes: No Distress, Calm, Thin Eyes: Yes: Conjunctiva Clear, EOM Intact HENT: Yes: Atraumatic, Normocephalic Neck: Yes: Supple, Trachea Midline Cardiovascular: Yes: Tachycardia, Pulse Irregular, Other (pacemaker healing incision at left anterior chest/shoulder, steri's essentially off, removed) Respiratory: Yes: Regular, CTA Bilaterally, Diminished (at bases). No: Rales, Rhonchi Gastrointestinal: Yes: Normal Bowel Sounds, Soft, Distention (mild, tympanic), Hernia (possible defect palpable along midline scar, umbilical region and possibly above), Melena (runny melena present), Other (healed midline and LLQ scars). No: Tenderness ...Rectal Exam: Yes: Guaiac Positive (melena). No: Deferred Renal/: No: CVA Tenderness - Left, CVA Tenderness - Right Musculoskeletal: Yes: Joint Swelling (right elbow region, from infiltrated previous IV). No: Joint Stiffness Extremities: Yes: Erythema (medial right elbow region). No: Cool, Cyanosis Edema: Yes Edema: RUE: 2+ (elbow region) Peripheral Pulses WNL: Yes (irregular) Integumentary: No: Jaundice, Rash Wound/Incision: Yes: Clean/Dry, Well Approximated (left anterior shoulder), Steri Strips (essentially off/removed rest of way), Open to air. No: Reddened Neurological: Yes: Alert, Oriented, Other (occasional difficulty finding words, slow speech, but overall appears improved from previous chart descriptions). No : Facial Droop Psychiatric: Yes: Alert. No: Agitated Labs: CBC, BMP 08/29/18 12:50 08/29/18 05:30 CMP Sodium 146 mmol/L (136-145) H 08/29/18 05:30 Potassium 3.4 mmol/L (3.5-5.1) L 08/29/18 05:30 Chloride 111 mmol/L (98-107) H 08/29/18 05:30 Carbon Dioxide 27 mmol/L (21-32) 08/29/18 05:30 Anion Gap 8 MMOL/L (8-16) 08/29/18 05:30 BUN 35 mg/dL (7-18) H 08/29/18 05:30 Creatinine 1.1 mg/dL (0.55-1.3) 08/29/18 05:30 Creat Clearance w eGFR > 60 (>60) 08/29/18 05:30 Random Glucose 94 mg/dL (74-106) 08/29/18 05:30 Calcium 7.9 mg/dL (8.5-10.1) L 08/29/18 05:30 Phosphorus 2.7 mg/dL (2.5-4.9) 08/29/18 05:30 Magnesium 2.5 mg/dL (1.8-2.4) H 08/29/18 05:30 Total Bilirubin 0.7 mg/dL (0.2-1) 08/27/18 11:40 AST 43 U/L (15-37) H 08/27/18 11:40 ALT 22 U/L (13-61) 08/27/18 11:40 Alkaline Phosphatase 122 U/L (45-117) H 08/27/18 11:40 Creatine Kinase 101 IU/L (26-308) 08/27/18 11:40 Troponin I 0.05 ng/ml (0.00-0.05) 08/27/18 11:40 Total Protein 6.6 g/dl (6.4-8.2) 08/27/18 11:40 Albumin 3.0 g/dl (3.4-5.0) L 08/27/18 11:40 Vitamin B12 463 pg/ml (193-986) 08/27/18 20:10 Homocysteine 15.9 umol/L (0.0-15.0) H 08/27/18 20:10 TSH 3.62 uIU/ml (0.358-3.74) D 08/28/18 05:30 low K+ BUN/Cr decreased to about baseline wbc low but stable Hb 8 after 2 units blood since admission (8 -> 7.5 -> 9 -> 8), one planned for tonight was 11 few weeks ago per chart INR, PTT INR 1.27 (0.83-1.09) H 08/29/18 09:30 Urine Test Results Urine Color Straw 08/27/18 11:37 Urine Appearance Clear 08/27/18 11:37 Urine pH 7.0 (5.0-8.0) 08/27/18 11:37 Ur Specific [place] 1.012 (1.010-1.035) 08/27/18 11:37 Urine Protein Negative (NEGATIVE) 08/27/18 11:37 Urine Glucose (UA) Negative (NEGATIVE) 08/27/18 11:37 Urine Ketones Negative (NEGATIVE) 08/27/18 11:37 Urine Blood Negative (NEGATIVE) 08/27/18 11:37 Urine Nitrite Negative (NEGATIVE) 08/27/18 11:37 Urine Bilirubin Negative (<2.0 mg/dL) 08/27/18 11:37 Ur Leukocyte Esterase Negative (NEGATIVE) 08/27/18 11:37 Imaging - Results Chest X-ray: Report Reviewed (right pleural effusion) Cat Scan: Report Reviewed (head x 2 without clear evidence of acute infarct) Ultrasound: Report Reviewed (carotid dopplers with some plaques at bifurcations but no significant stenoses) Problem List - Problems (1) Gastrointestinal hemorrhage with melena Assessment/Plan: GI following had upper endoscopy today report not on chart, but per nurse, no active or clear bleeding source was identified + melena on exam, in diaper and anorectum s/p transfusion of 2 units blood, third planned tonight Pradaxa and antiplatelet therapy on hold INR still slightly above normal keep NPO except essential meds, occasional ice chips for now agree with supportive care and colonoscopy when able and if continues to have evidence of bleeding CTA/bleeding scan if active bleeding evident (with IV hydration) trend labs, serial H/H watch electrolytes/replete prn elevate right arm/elbow above heart level cardiology and neurology also following would need optimization by both prior to any OR consideration would need bleeding localized with no other options for control to consider surgery high risk surgical candidate given comorbidities, age, previous abdominal surgery operative intervention would be last resort - briefly discussed with pt/, but would discuss risks/benefits in more detail if it appears surgery could be required Code(s): K92.1 - MELENA (2) Anemia associated with acute blood loss Assessment/Plan: transfuse as indicated, FFP/platelets as appropriate Code(s): D62 - ACUTE POSTHEMORRHAGIC ANEMIA (3) Persistent atrial fibrillation Assessment/Plan: Pradaxa/antiplatelets on hold Code(s): I48.1 - PERSISTENT ATRIAL FIBRILLATION (4) CVA (cerebral vascular accident) Assessment/Plan: neurology suspects 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 despite neg CT findings Code(s): I63.9 - CEREBRAL INFARCTION, UNSPECIFIED Qualifiers: CVA mechanism: occlusion Precerebral and cerebral artery: posterior cerebral artery Laterality of affected vessel: left Qualified Code(s): I63.532 - Cerebral infarction due to unspecified occlusion or stenosis of left posterior cerebral artery (5) Altered mental status Assessment/Plan: improved per pt and Code(s): R41.82 - ALTERED MENTAL STATUS, UNSPECIFIED Qualifiers: Altered mental status type: transient alteration of awareness Qualified Code(s): R40.4 - Transient alteration of awareness (6) Biventricular CHF (congestive heart failure) Assessment/Plan: not decompensated Code(s): I50.82 - BIVENTRICULAR HEART FAILURE (7) Systolic CHF, chronic Code(s): I50.22 - CHRONIC SYSTOLIC (CONGESTIVE) HEART FAILURE (8) Hypothyroidism Code(s): E03.9 - HYPOTHYROIDISM, UNSPECIFIED Qualifiers: Hypothyroidism type: unspecified Qualified Code(s): E03.9 - Hypothyroidism , unspecified (9) Macular degeneration, age related Code(s): H35.30 - UNSPECIFIED MACULAR DEGENERATION Assessment/Plan Thank you for the opportunity to participate in the care of this patient. This patient is critically ill. Time spent reviewing chart, examining patient, talking with providers and/or family and documentation is 40 minutes.
[2018-08-29 20:01] LABS: ANION GAP 11 MMOL/L (8-16); BLOOD UREA NITROGEN 34 mg/dL (7-18); CALCIUM 8.1 mg/dL (8.5-10.1); CHLORIDE 113 mmol/L (98-107); CO2 26 mmol/L (21-32); CREATININE 1.2 mg/dL (0.55-1.3); GLUCOSE,RANDOM 83 mg/dL (74-106); MAGNESIUM 2.4 mg/dL (1.8-2.4); POTASSIUM 3.9 mmol/L (3.5-5.1); SODIUM 150 mmol/L (136-145)
--- NOTE | 2018-08-29 20:16 | PN ---
Progress Note (short form) - Note Progress Note: troponin 0.12. and it was 0.05 on admission. Patient has no chest pain or shortness of breath. Troponin was sent for a rapid heart rate by the day team. The patient has been having A fib with RVR for the past 3 days. Troponinemia likely demand from rapid heart rate in the 150-160s. Patient HR now 89. Denies any symptoms.
[2018-08-30] MEDS: METOPROLOL TARTRATE 5 MG/5 ML VIAL IVPUSH SCH ×3 (02:48→09:06)
[2018-08-30 06:12] LABS: BASO % 0.5 % (0-2.0); HEMATOCRIT 28.3 % (35.4-49); HEMOGLOBIN 9.4 GM/dL (11.7-16.9); LYMPH % 22.6 % (8-40); MCH 31.2 pg (25.7-33.7); MCHC 33.3 g/dl (32.0-35.9); MEAN CELL VOLUME 93.6 fl (80-96); MEAN PLT VOLUME 7.4 fl (7.5-11.1); MONO % 6.2 % (3.8-10.2); NEUT % 68.7 % (42.8-82.8); PLATELET COUNT 153 K/MM3 (134-434); RBC 3.03 M/mm3 (4.00-5.60); RDW 23.1 % (11.9-15.9); WHITE BLOOD COUNT 4.3 K/mm3 (4.0-10.0)
[2018-08-30 06:34] LABS: INR 1.21 (0.83-1.09); PROTHROMBIN TIME (PATIENT) 14.3 SEC (9.7-13.0)
[2018-08-30 06:35] LABS: ALK PHOS 112 U/L (45-117); ANION GAP 7 MMOL/L (8-16); BILIRUBIN,TOTAL 1.6 mg/dL (0.2-1); BLOOD UREA NITROGEN 33 mg/dL (7-18); CALCIUM 8.1 mg/dL (8.5-10.1); CHLORIDE 114 mmol/L (98-107); CO2 27 mmol/L (21-32); CREATININE 1.1 mg/dL (0.55-1.3); GLUCOSE,RANDOM 81 mg/dL (74-106); MAGNESIUM 2.3 mg/dL (1.8-2.4); POTASSIUM 3.8 mmol/L (3.5-5.1); SGOT/AST 42 U/L (15-37); SGPT/ALT 21 U/L (13-61); SODIUM 149 mmol/L (136-145); TOT PROT 6.5 g/dl (6.4-8.2)
[2018-08-30 06:36] LABS: ACTIVATED PTT 33.9 SECONDS (25.2-36.5)
[2018-08-30] MEDS ORDERED: SODIUM CHLORIDE 0.45% 1,000 ML IV SCH (08:09)
--- NOTE | 2018-08-30 08:18 | PN ---
Progress Note (short form) - Note Progress Note: Subjective: no fever or chills, no events last night. last bloody BM last evening after EGD ( black ) , no N/V, no light headedness, no abd pain, feels dry and hungry . No weakness, numbness or tingling. has no RYDER or visual Objective: Vital Signs: Last Vital Signs Temp Pulse Resp BP Pulse Ox 98 F 109 H 16 118/71 97 08/30/18 06:00 08/30/18 08:00 08/30/18 08:00 08/30/18 08:00 08/29/18 20:00 Laboratory Results - last 24 hr 08/27/18 08/27/18 08/29/18 11:40 20:10 05:30 WBC 3.2 L RBC 2.41 L Hgb 8.1 L Hct 22.9 L MCV 95.0 MCH 33.8 H MCHC 35.6 RDW 19.0 H Plt Count 164 MPV 7.9 Absolute Neuts (auto) Neutrophils % Lymphocytes % Monocytes % Eosinophils % Basophils % Nucleated RBC % PT with INR INR PTT (Actin FS) Sodium Potassium Chloride Carbon Dioxide Anion Gap BUN Creatinine Creat Clearance w eGFR Random Glucose Calcium Phosphorus Magnesium Total Bilirubin AST ALT Alkaline Phosphatase Troponin I Total Protein Albumin Homocysteine 15.9 H Blood Type A POSITIVE Antibody Screen Negative Crossmatch See Detail 08/29/18 08/29/18 08/29/18 05:30 09:30 12:50 WBC 3.9 L RBC 2.61 L Hgb 8.3 L Hct 25.1 L MCV 96.0 MCH 31.7 MCHC 33.0 RDW 19.5 H Plt Count 159 MPV 7.5 Absolute Neuts (auto) Neutrophils % Lymphocytes % Monocytes % Eosinophils % Basophils % Nucleated RBC % PT with INR 15.00 H INR 1.27 H PTT (Actin FS) 35.6 Sodium 146 H Potassium 3.4 L Chloride 111 H Carbon Dioxide 27 Anion Gap 8 BUN 35 H Creatinine 1.1 Creat Clearance w eGFR > 60 Random Glucose 94 Calcium 7.9 L Phosphorus 2.7 Magnesium 2.5 H Total Bilirubin AST ALT Alkaline Phosphatase Troponin I Total Protein Albumin Homocysteine Blood Type Antibody Screen Crossmatch 08/29/18 08/30/18 08/30/18 19:10 05:30 05:30 WBC 4.3 RBC 3.03 L Hgb 9.4 L Hct 28.3 L MCV 93.6 MCH 31.2 MCHC 33.3 RDW 23.1 H Plt Count 153 MPV 7.4 L Absolute Neuts (auto) 2.9 Neutrophils % 68.7 Lymphocytes % 22.6 Monocytes % 6.2 Eosinophils % 2.0 Basophils % 0.5 Nucleated RBC % 0 PT with INR INR PTT (Actin FS) Sodium 150 H 149 H Potassium 3.9 3.8 Chloride 113 H 114 H Carbon Dioxide 26 27 Anion Gap 11 7 L BUN 34 H 33 H Creatinine 1.2 1.1 Creat Clearance w eGFR 57.27 > 60 Random Glucose 83 81 Calcium 8.1 L 8.1 L Phosphorus 3.0 Magnesium 2.4 2.3 Total Bilirubin 1.6 H AST 42 H ALT 21 Alkaline Phosphatase 112 Troponin I 0.12 H Total Protein 6.5 Albumin 3.0 L Homocysteine Blood Type Antibody Screen Crossmatch 08/30/18 08/30/18 05:30 05:30 WBC RBC Hgb Hct MCV MCH MCHC RDW Plt Count MPV Absolute Neuts (auto) Neutrophils % Lymphocytes % Monocytes % Eosinophils % Basophils % Nucleated RBC % PT with INR 14.30 H INR 1.21 H PTT (Actin FS) 33.9 Sodium Potassium Chloride Carbon Dioxide Anion Gap BUN Creatinine Creat Clearance w eGFR Random Glucose Calcium Phosphorus Magnesium Total Bilirubin AST ALT Alkaline Phosphatase Troponin I 0.13 H Total Protein Albumin Homocysteine Blood Type Antibody Screen Crossmatch Physical Exam: NAD, Awake, slow but normal speech, no aphasia . oriented x 3 HEENT: very dry MM. no facial droop. CV: RRR, 2/6 SM at apex with JVD. Lungs: CATB Abd; mid line surgical scar, no tenderness, NL BS. Ext: LE: hyperpigmentation , trace edema on R leg, no tenderness Neuro: speech slow butnormal. EOMI, round equal pupils, reactive to light . tongue at mid line. nl facial sensation. strength 5/5 in upper and lower extremities proximally and distally. sensation to light touch NL. reflexes : 2+ biceps and BR, 2+ knee jerk b/l. 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 - cont to hold AC - neuro checks 2- GI bleed : likely lower. reportedly had EGD yesterday, no report in chart or EMR. unknown results. bx taken - in setting of unknown EGD results, I willcontinue PPI gtt - last bloody BM yesterday evening, s/p 3 units of RBCs - will likely need colo - monitor HB - increase IVF as looks volume depleted 3- H/o A fib: in sinus tach now. BP stable - cont PRN BB - increase IVF - hold AC - monitor on tele 4- Elevated trop: likely demand. trend. repeat this afternoon 5- h/o R systolic/L diastolic heart failure: looks volume depleted - hold diuresis - hold BB - IVF 6- h/o Idioventricular rate, s/p PPM . Cont to monitor closely. can transfer to floor Visit type - Emergency Visit Emergency Visit: Yes ED Registration Date: 08/27/18 Care time: The patient presented to the Emergency Department on the above date and was hospitalized for further evaluation of their emergent condition. - New Patient This patient is new to me today: No - Critical Care Critical Care patient: No
--- NOTE | 2018-08-30 10:30 | PN ---
Teaching Attending Note Name of Resident: Alden Robles ATTENDING PHYSICIAN STATEMENT I saw and evaluated the patient. I reviewed the resident's note and discussed the case with the resident. I agree with the resident's findings and plan as documented. SUBJECTIVE: Pt seen and examined in the ICU. s/p EGD reportedly without evidence of active bleed. Small black stool after endoscopy and none since. Transfused PRBC with appropriate response. No shortness of breath or chest pain. Heart rates rapid. OBJECTIVE: Vital Signs Period Temp Pulse Resp BP Sys/Servin Pulse Ox Last 24 Hr 97.4 F-98.4 F 105-155 15-24 100-133/55-77 94-97 Intake & Output 08/27/18 08/28/18 08/29/18 08/30/18 23:59 23:59 23:59 23:59 Intake Total 650 1164 294 Output Total 200 Balance 650 1164 94 Weight 73.936 kg 69.3 kg Gen: NAD at rest Heart: tachycardic, irregular Lung: decreased breath sounds at the bases Abd: soft, nontender Ext: no edema CBC, BMP 08/30/18 05:30 08/30/18 05:30 Active Medications Pantoprazole Sodium 80 mg/ (Sodium Chloride) 100 mls @ 10 mls/hr IVPB Q10H [facility] Last Admin: 08/29/18 23:28 Dose: 10 mls/hr Sodium Chloride (1/2 Normal Saline) 1,000 mls @ 65 mls/hr IV ASDIR NEIL Last Admin: 08/30/18 09:06 Dose: 65 mls/hr Metoprolol Tartrate (Lopressor -) 25 mg PO BID [facility] Metoprolol Tartrate (Lopressor Injection -) 5 mg IVPUSH Q4H PRN PRN Reason: TACHYCARDIA ASSESSMENT AND PLAN: GI Bleed Acute Blood Loss Anemia Atrial Fibrillation with RVR s/p PPM LV Systolic/Diastolic Dysfunction r/o Acute CVA - monitor H/H - continue protonix - rate control with metoprolol - PO per GI - hypotonic IVF - DVT prophylaxis - can monitor on telemetry
[2018-08-30] MEDS: METOPROLOL TARTRATE 25 MG TABLET (FP) PO SCH (10:49)
[2018-08-30] MEDS: PANTOPRAZOLE SODIUM 80 MG in SODIUM CHLORIDE 100 ML IVPB SCH (10:49)
--- NOTE | 2018-08-30 10:49 | PN ---
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 Denies CP or SOB + melena as per RN History of Present Illness: TELE: AF 120s, no sig pauses - Current Medication List Current Medications: Active Medications Pantoprazole Sodium 80 mg/ (Sodium Chloride) 100 mls @ 10 mls/hr IVPB Q10H [facility] Last Admin: 08/29/18 23:28 Dose: 10 mls/hr Sodium Chloride (1/2 Normal Saline) 1,000 mls @ 65 mls/hr IV ASDIR NEIL Last Admin: 08/30/18 09:06 Dose: 65 mls/hr Metoprolol Tartrate (Lopressor -) 25 mg PO BID NEIL Metoprolol Tartrate (Lopressor Injection -) 5 mg IVPUSH Q4H PRN PRN Reason: TACHYCARDIA - Objective Vital Signs: Vital Signs Temperature 98 F 08/30/18 06:00 Pulse Rate 116 H 08/30/18 09:06 Respiratory Rate 16 08/30/18 09:00 Blood Pressure 110/60 08/30/18 09:06 O2 Sat by Pulse Oximetry (%) 97 08/30/18 09:00 Constitutional: Yes: No Distress, Calm Cardiovascular: Yes: Pulse Irregular Respiratory: Yes: CTA Bilaterally Gastrointestinal: Yes: Soft (non-tender) Edema: No Neurological: Yes: Alert, Oriented Labs: CBC, BMP 08/30/18 05:30 08/30/18 05:30 INR, PTT INR 1.21 (0.83-1.09) H 08/30/18 05:30 Laboratory Tests 08/29/18 08/30/18 08/30/18 19:10 05:30 05:30 WBC 4.3 Hgb 9.4 L Hct 28.3 L Plt Count 153 INR PTT (Actin FS) Sodium 149 H Potassium 3.8 BUN 33 H Creatinine 1.1 Troponin I 0.12 H 08/30/18 08/30/18 05:30 05:30 WBC Hgb Hct Plt Count INR 1.21 H PTT (Actin FS) 33.9 Sodium Potassium BUN Creatinine Troponin I 0.13 H - ....Imaging EKG: Image Reviewed Assessment/Plan IMP: GI Bleed Acute Blood Loss Anemia Atrial Fibrillation with RVR s/p PPM LV Systolic/Diastolic Dysfunction r/o Acute CVA REC: 1. Agree w/ initiation of Metoprolol tartrate rate control, BP stable presently 2. Hold AC 3. Continued w/u as per GI and Neuro 4. ICU monitoring: IV PPI, serial CBCs Coverage for [place]icz
--- NOTE | 2018-08-30 11:33 | PN ---
Teaching Attending Note Name of Resident: Lela Solomon ATTENDING PHYSICIAN STATEMENT I saw and evaluated the patient. I reviewed the resident's note and discussed the case with the resident. I agree with the resident's findings and plan as documented. SUBJECTIVE: Paatient seen and examined previously discussed with Gi. Underwent EGD with apparently no obvious bleeding site noted Further work up pending Last Vital Signs Temp Pulse Resp BP Pulse Ox 98 F 103 H 16 121/81 97 08/30/18 06:00 08/30/18 10:00 08/30/18 10:00 08/30/18 10:00 08/30/18 09:00 HEENT: RAVEN, EOM Intact Oropharynx: No thrush, No mucositis Cor: RSR, No murmurs, No gallops Lungs: diminished breath sounds and few rales at bases Abd: Soft, Normal bowel sounds, No organomegaly Ext: LE edema Skin: stasis changes LE CBC, BMP 08/30/18 05:30 08/30/18 05:30 Current Medications Generic Name Dose Route Start Last Admin Trade Name Freq PRN Reason Stop Dose Admin Pantoprazole Sodium 80 mg/ 100 mls @ 10 mls/hr 08/29/18 23:00 08/30/18 10:49 Sodium Chloride IVPB 10 mls/hr Q10H NEIL Administration 8 MG/HR Sodium Chloride 1,000 mls @ 65 mls/hr 08/30/18 08:09 08/30/18 09:06 1/2 Normal Saline IV 65 mls/hr ASDIR NEIL Administration Metoprolol Tartrate 25 mg 08/30/18 10:15 08/30/18 10:49 Lopressor - PO Not Given BID NEIL Metoprolol Tartrate 5 mg 08/30/18 10:24 Lopressor Injection - IVPUSH Q4H PRN TACHYCARDIA . OBJECTIVE: ASSESSMENT AND PLAN: Impression GI bleed A/C- on hold Further evaluation per neurology and GI planned .
--- NOTE | 2018-08-30 11:57 | PN ---
GI Progress Note Subjective: No acute events S/P EGD performed by Dr. Mendoza. ? old blood refluxed up in 2nd portion duodenum. Report left in procedural section of physical chart. Patient more awake today. Dark BM reported overnight. States feeling well. Does complain of continued problems with speech - Objective Vital Signs: Vital Signs Temperature 98 F 08/30/18 06:00 Pulse Rate 103 H 08/30/18 10:00 Respiratory Rate 16 08/30/18 10:00 Blood Pressure 121/81 08/30/18 10:00 O2 Sat by Pulse Oximetry (%) 97 08/30/18 09:00 Constitutional: Calm Eyes: No: Sclera Icterus Cardiovascular: Yes: Tachycardia Gastrointestinal Inspection: No: Distention ...Auscultate: Yes: Normoactive Bowel Sounds Edema: Yes Neurological: Yes: Alert Labs: CBC, BMP 08/30/18 05:30 08/30/18 05:30 INR, PTT INR 1.21 (0.83-1.09) H 08/30/18 05:30 Problem List - Problems (1) GI bleed Assessment/Plan: S/P 3 U PRBC Hemodynamically remains. H/H improved, still tachycardic. ? if alternate cause other than blood loss Dr. Mendoza's findings noted. if continued active GI bleed, may need enteroscopy / colonoscopy. Discussed with patient and his who was present at bedside. Monitor H/H. If stable OKO with downgrade to telemetry. Clear liquids D/C PPI drip Code(s): K92.2 - GASTROINTESTINAL HEMORRHAGE, UNSPECIFIED
[2018-08-30 12:42] LABS: ANISOCYTOSIS 2+; MACROCYTOSIS 1+; OVALOCYTE 1+; PLATELET ESTIMATE DECREASED
[2018-08-30] MEDS ORDERED: SODIUM CHLORIDE 500 ML IV STA (12:58)
[2018-08-30] MEDS: METOPROLOL TARTRATE 5 MG/5 ML VIAL IVPUSH PRN ×2 (13:00→17:49)
--- NOTE | 2018-08-30 13:57 | PN ---
Physical Exam: SUBJECTIVE: Pt seen and examined in the ICU. s/p EGD reportedly without evidence of active bleed. Small black stool after endoscopy and today as well. S /P 3 U PRBC with appropriate response. Heart rate remains rapid w/ max of narrow complex 170s when pt eats food. denies cp/sob. ctl w/ IV lopressor w/ 500cc bolus. EKG ordered OBJECTIVE: Vital Signs Period Temp Pulse Resp BP Sys/Servin Pulse Ox Last 24 Hr 97.4 F-98.4 F 103-155 15-24 100-133/55-81 94-97 GENERAL: AOX3 NAD HEAD: NCAT EYES: PERRLA, extraocular movements intact, sclera anicteric, conjunctiva clear. No ptosis. ENT: dry mucous membranes. NECK: Trachea midline, full range of motion LUNGS: CTAB HEART: tachycardic with irregular rhythm, S1, S2 without m/r/g ABDOMEN: Soft, NTND, normoactive bowel sounds, no guarding, no rebound, EXTREMITIES: 2+ pulses, warm, well-perfused, no edema. NEUROLOGICAL: Cranial nerves II through XII grossly intact. Slurred and slow speech SKIN: Warm, dry, normal turgor, no rashes or lesions noted Laboratory Results - last 24 hr 08/27/18 08/27/18 08/29/18 11:40 20:10 12:50 WBC 3.9 L RBC 2.61 L Hgb 8.3 L Hct 25.1 L MCV 96.0 MCH 31.7 MCHC 33.0 RDW 19.5 H Plt Count 159 MPV 7.5 Absolute Neuts (auto) Neutrophils % Lymphocytes % Monocytes % Eosinophils % Basophils % Nucleated RBC % PT with INR INR PTT (Actin FS) Sodium Potassium Chloride Carbon Dioxide Anion Gap BUN Creatinine Creat Clearance w eGFR Random Glucose Calcium Phosphorus Magnesium Total Bilirubin AST ALT Alkaline Phosphatase Troponin I Total Protein Albumin Homocysteine 15.9 H Blood Type A POSITIVE Antibody Screen Negative Crossmatch See Detail 08/29/18 08/30/18 08/30/18 19:10 05:30 05:30 WBC 4.3 RBC 3.03 L Hgb 9.4 L Hct 28.3 L MCV 93.6 MCH 31.2 MCHC 33.3 RDW 23.1 H Plt Count 153 MPV 7.4 L Absolute Neuts (auto) 2.9 Neutrophils % 68.7 Lymphocytes % 22.6 Monocytes % 6.2 Eosinophils % 2.0 Basophils % 0.5 Nucleated RBC % 0 PT with INR INR PTT (Actin FS) Sodium 150 H 149 H Potassium 3.9 3.8 Chloride 113 H 114 H Carbon Dioxide 26 27 Anion Gap 11 7 L BUN 34 H 33 H Creatinine 1.2 1.1 Creat Clearance w eGFR 57.27 > 60 Random Glucose 83 81 Calcium 8.1 L 8.1 L Phosphorus 3.0 Magnesium 2.4 2.3 Total Bilirubin 1.6 H AST 42 H ALT 21 Alkaline Phosphatase 112 Troponin I 0.12 H Total Protein 6.5 Albumin 3.0 L Homocysteine Blood Type Antibody Screen Crossmatch 08/30/18 08/30/18 05:30 05:30 WBC RBC Hgb Hct MCV MCH MCHC RDW Plt Count MPV Absolute Neuts (auto) Neutrophils % Lymphocytes % Monocytes % Eosinophils % Basophils % Nucleated RBC % PT with INR 14.30 H INR 1.21 H PTT (Actin FS) 33.9 Sodium Potassium Chloride Carbon Dioxide Anion Gap BUN Creatinine Creat Clearance w eGFR Random Glucose Calcium Phosphorus Magnesium Total Bilirubin AST ALT Alkaline Phosphatase Troponin I 0.13 H Total Protein Albumin Homocysteine Blood Type Antibody Screen Crossmatch Active Medications Generic Name Dose Route Start Last Admin Trade Name Freq PRN Reason Stop Dose Admin Sodium Chloride 1,000 mls @ 65 mls/hr 08/30/18 08:09 08/30/18 09:06 1/2 Normal Saline IV 65 mls/hr ASDIR NEIL Administration Metoprolol Tartrate 25 mg 08/30/18 10:15 08/30/18 10:49 Lopressor - PO Not Given BID NEIL Metoprolol Tartrate 5 mg 08/30/18 10:24 Lopressor Injection - IVPUSH Q4H PRN TACHYCARDIA ASSESSMENT/PLAN: 87M PMH of systolic and diastolic HF, hypothyroidism, HTN, A fib, prior GI bleed w/ normal colonoscopy (), CVA (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 Black stools noticed by RN. Admitted to med/surg on 08/27. S/P 3 U PRBC since admission for Hb < 8. today Hb 9.3 s/p EGD reportedly without evidence of active bleed Despite negative CT - Neurology feels patient clinically had CVA in [employer] distribution. Pt not a candidate for tPA. pt tchy narrow complex 170s when eating food, deneis cp/sob. ctl w/ IV lopressor w/ 500cc bolus Hemodynamically remains. H/H improved, still tachycardic. ? if alternate cause other than blood loss Neuro Suspected [employer] CVA - Negative head CT, however clinically symptomatic for [employer] per Neurology - Speech evaluation for dysphagia and word finding difficulty - Neuro checks Q2H Pt not a candidate for tPA. GI UGIB vs LGIB - EGD with unremarkable findings for UGIB, unclear as to source of GIB - Transfusion threshold Hb < 8 - dc Protonix gtt per GI -will start protonix IVP qd -possible UGIB with PUD on pmhx but unconfirmed by family if continued active GI bleed, may need enteroscopy / colonoscopy. - Per DiGiorno note: Pradaxa half life of 12-17 with normal kidney function and 15-18 hours with mod renal insuff. likely a low level (<10%) of Pradaxa present in pt. No reversal agent indicated. - INR 1.74 --> 1.24....1.21 -Monitor H/H. If stable ok with downgrade to telemetry. Cardiac systolic/diastolic heart failure, afib - Brief episodes of wide complex tachycardia while on floor - 08/29 @ 1630: pt w/ HR of 134 with Bp 92 /63, asymptomatic. Discussed with cardiology, Lopressor 5mg Q4H - 08/29 @ 1800: patient with paroxysmal Vtach, normotensive - trop, Mg, BMP sent , EKG done - with episodes of vtach, hypotension, tachycardia and history of afib consider amiodarone - will discuss with cardiology -today tachy narrow complex 170s when eating food, deneis cp/sob. ctl w/ IV lopressor w/ 500cc bolus. EKG ordered -will hold off on metop 25 PO bid -per primary team, will give digoxin loading dose .5mg now w/ .25 at 8pm () and .25 at 2am (08/31/18) - ECHO (08/26) EF 55-60% with severely dilated RV,LA and RA - Home marine engineer cpvec Dr. Jewell ([phone]) - Tele monitoring - Monitor electrolytes - Hold anticoagulants in setting of GIB - Hold Lasix Elevated trop: likely demand. trend. repeat this afternoon F/E/N - 1/2 NS for volume resuscitation with mindfulness of CHF. - Trend K, as history of chronic hypokalemic, replete lytes prn - Clear liquids DVT ppx - SCDs - hold AC in setting of GI bleed -D/C PPI drip -protonix IVP qd Dispo pt is stable and can be transferred to tele. further care per primary team/pcp if becomes unstable will keep in ICU for close monitoring Visit type - Emergency Visit Emergency Visit: Yes ED Registration Date: 08/27/18 Care time: The patient presented to the Emergency Department on the above date and was hospitalized for further evaluation of their emergent condition. - New Patient This patient is new to me today: Yes Date on this admission: 08/30/18 - Critical Care Critical Care patient: Yes Total Critical Care Time (in minutes): 40 Critical Care Statement: The care of this patient involved high complexity decision making to prevent further life threatening deterioration of the patient 's condition and/or to evaluate & treat vital organ system(s) failure or risk of failure.
[2018-08-30] MEDS ORDERED: DIGOXIN 0.5 MG/2 ML AMPUL IVPUSH ONE ×2 (13:58→20:00)
[2018-08-30] MEDS: PANTOPRAZOLE SODIUM 40 MG VIAL IVPUSH SCH (14:39)
[2018-08-30 14:56] LABS: BASO % 0.6 % (0-2.0); EOS % 1.5 % (0-4.5); HEMATOCRIT 26.9 % (35.4-49); HEMOGLOBIN 9.6 GM/dL (11.7-16.9); LYMPH % 15.2 % (8-40); MCHC 35.5 g/dl (32.0-35.9); MONO % 6.2 % (3.8-10.2); NEUT % 76.5 % (42.8-82.8); PLATELET COUNT 168 K/MM3 (134-434); RBC 2.89 M/mm3 (4.00-5.60); RDW 22.8 % (11.9-15.9)
[2018-08-30] MEDS ORDERED: METOPROLOL TARTRATE 25 MG TABLET (FP) PO ONE (18:02)
[2018-08-30 21:51] LABS: BASO % 0.4 % (0-2.0); EOS % 0.2 % (0-4.5); HEMATOCRIT 28.2 % (35.4-49); HEMOGLOBIN 10.1 GM/dL (11.7-16.9); LYMPH % 4.3 % (8-40); MCH 33.5 pg (25.7-33.7); MCHC 35.7 g/dl (32.0-35.9); MEAN CELL VOLUME 93.6 fl (80-96); MONO % 2.4 % (3.8-10.2); NEUT % 92.7 % (42.8-82.8); PLATELET COUNT 192 K/MM3 (134-434); RBC 3.01 M/mm3 (4.00-5.60); RDW 22.9 % (11.9-15.9); WHITE BLOOD COUNT 6.9 K/mm3 (4.0-10.0)
[2018-08-30 22:24] LABS: ALK PHOS 116 U/L (45-117); ANION GAP 10 MMOL/L (8-16); BILIRUBIN,TOTAL 1.2 mg/dL (0.2-1); BLOOD UREA NITROGEN 30 mg/dL (7-18); CALCIUM 7.8 mg/dL (8.5-10.1); CHLORIDE 114 mmol/L (98-107); CO2 23 mmol/L (21-32); CREATININE 1.3 mg/dL (0.55-1.3); GLUCOSE,RANDOM 127 mg/dL (74-106); MAGNESIUM 2.3 mg/dL (1.8-2.4); POTASSIUM 3.7 mmol/L (3.5-5.1); SGOT/AST 47 U/L (15-37); SGPT/ALT 22 U/L (13-61); SODIUM 147 mmol/L (136-145); TOT PROT 6.7 g/dl (6.4-8.2)
[2018-08-30 22:53] LABS: ANISOCYTOSIS 3+; MACROCYTOSIS 2+; OVALOCYTE 1+; PLATELET ESTIMATE ADEQUATE
[2018-08-31] MEDS ORDERED: DIGOXIN 0.5 MG/2 ML AMPUL IVPUSH ONE (02:00)
[2018-08-31 06:08] LABS: BASO % 0.3 % (0-2.0); EOS % 0.4 % (0-4.5); HEMATOCRIT 25.5 % (35.4-49); HEMOGLOBIN 8.6 GM/dL (11.7-16.9); LYMPH % 6.3 % (8-40); MCH 31.5 pg (25.7-33.7); MCHC 33.7 g/dl (32.0-35.9); MEAN CELL VOLUME 93.4 fl (80-96); MEAN PLT VOLUME 7.5 fl (7.5-11.1); MONO % 2.6 % (3.8-10.2); NEUT % 90.4 % (42.8-82.8); PLATELET COUNT 134 K/MM3 (134-434); RBC 2.73 M/mm3 (4.00-5.60); RDW 21.9 % (11.9-15.9); WHITE BLOOD COUNT 6.9 K/mm3 (4.0-10.0)
[2018-08-31 06:18] LABS: INR 1.35 (0.83-1.09)
[2018-08-31 06:35] LABS: GLUCOSE,RANDOM 98 mg/dL (74-106)
[2018-08-31 06:36] LABS: ALBUMIN 2.5 g/dl (3.4-5.0); ALK PHOS 96 U/L (45-117); ANION GAP 6 MMOL/L (8-16); BLOOD UREA NITROGEN 28 mg/dL (7-18); CALCIUM 7.4 mg/dL (8.5-10.1); CHLORIDE 113 mmol/L (98-107); CO2 27 mmol/L (21-32); CREATININE 1.1 mg/dL (0.55-1.3); MAGNESIUM 2.3 mg/dL (1.8-2.4); PHOSPHOROUS 2.5 mg/dL (2.5-4.9); POTASSIUM 3.4 mmol/L (3.5-5.1); SGOT/AST 38 U/L (15-37); SGPT/ALT 19 U/L (13-61); SODIUM 145 mmol/L (136-145); TOT PROT 5.6 g/dl (6.4-8.2)
[2018-08-31] MEDS ORDERED: POTASSIUM CHLORIDE ORAL LIQUID 20 MEQ/15 ML PO ONE (07:30)
--- NOTE | 2018-08-31 07:57 | PN ---
Teaching Attending Note Name of Resident: Keaton Pinzon ATTENDING PHYSICIAN STATEMENT I saw and evaluated the patient. I reviewed the resident's note and discussed the case with the resident. I agree with the resident's findings and plan as documented. SUBJECTIVE: Patient is comfortable with no acute distress. is at bedside. No bleed this morning. OBJECTIVE: Vital Signs Temperature 98.8 F 08/31/18 06:00 Pulse Rate 70 08/31/18 06:00 Respiratory Rate 22 H 08/31/18 06:00 Blood Pressure 94/73 08/31/18 06:00 O2 Sat by Pulse Oximetry (%) 99 08/30/18 23:23 GENERAL: The patient is awake, alert, and fully oriented, in no acute distress. HEAD: Normal with no signs of trauma. EYES: PERRL, extraocular movements intact, sclera anicteric, conjunctiva clear. ENT: Ears normal, oropharynx clear without exudates, moist mucous membranes. NECK: Trachea midline, full range of motion, supple, JVD+, pulsatile blood vessel in right anterior neck LUNGS: Decreased breath sounds, no wheezes, no crackles, no accessory muscle use. HEART: Regular rate and rhythm, S1, S2 positive , no murmur, rub or gallop. ABDOMEN: Soft, NT, ND, normoactive bowel sounds, no guarding, no rebound, no masses. EXTREMITIES: 2+ dorsal pedal pulses, warm, well-perfused. edema trace. NEUROLOGICAL: Cranial nerves II through XII grossly intact. Normal speech, gait not observed. PSYCH: Normal mood, normal affect. SKIN: Warm, dry, no rash noted. CBCD WBC 6.9 K/mm3 (4.0-10.0) 08/31/18 05:30 RBC 2.73 M/mm3 (4.00-5.60) L 08/31/18 05:30 Hgb 8.6 GM/dL (11.7-16.9) L 08/31/18 05:30 Hct 25.5 % (35.4-49) L 08/31/18 05:30 MCV 93.4 fl (80-96) 08/31/18 05:30 MCHC 33.7 g/dl (32.0-35.9) 08/31/18 05:30 RDW 21.9 % (11.9-15.9) H 08/31/18 05:30 Plt Count 134 K/MM3 (134-434) D 08/31/18 05:30 MPV 7.5 fl (7.5-11.1) 08/31/18 05:30 CMP Sodium 145 mmol/L (136-145) 08/31/18 05:30 Potassium 3.4 mmol/L (3.5-5.1) L 08/31/18 05:30 Chloride 113 mmol/L (98-107) H 08/31/18 05:30 Carbon Dioxide 27 mmol/L (21-32) 08/31/18 05:30 Anion Gap 6 MMOL/L (8-16) L 08/31/18 05:30 BUN 28 mg/dL (7-18) H 08/31/18 05:30 Creatinine 1.1 mg/dL (0.55-1.3) 08/31/18 05:30 Creat Clearance w eGFR > 60 (>60) 08/31/18 05:30 Random Glucose 98 mg/dL (74-106) 08/31/18 05:30 Calcium 7.4 mg/dL (8.5-10.1) L 08/31/18 05:30 Total Bilirubin 1.0 mg/dL (0.2-1) 08/31/18 05:30 AST 38 U/L (15-37) H 08/31/18 05:30 ALT 19 U/L (13-61) 08/31/18 05:30 Alkaline Phosphatase 96 U/L (45-117) 08/31/18 05:30 Total Protein 5.6 g/dl (6.4-8.2) L 08/31/18 05:30 Albumin 2.5 g/dl (3.4-5.0) L 08/31/18 05:30 CARDIAC ENZYMES Creatine Kinase 101 IU/L (26-308) 08/27/18 11:40 Troponin I 0.12 ng/ml (0.00-0.05) H 08/30/18 20:00 Current Medications Generic Name Dose Route Start Last Admin Trade Name Freq PRN Reason Stop Dose Admin Sodium Chloride 1,000 mls @ 65 mls/hr 08/30/18 08:09 08/30/18 09:06 1/2 Normal Saline IV 65 mls/hr ASDIR NEIL Administration Metoprolol Tartrate 25 mg 11/22/18 10:15 08/30/18 10:49 Lopressor - PO Not Given BID NEIL Metoprolol Tartrate 5 mg 08/30/18 10:24 08/30/18 17:49 Lopressor Injection - IVPUSH 5 mg Q4H PRN Administration TACHYCARDIA Pantoprazole Sodium 40 mg 08/30/18 13:30 08/30/18 14:39 Protonix Iv IVPUSH 40 mg DAILY NEIL Administration Home Medications Medication Instructions Recorded Ascorbic Acid [Vitamin C] 500 mg PO DAILY 08/05/18 Atorvastatin Ca [Lipitor] 10 mg PO ASDIR 08/05/18 Beta-Carotene(A) W-C and E/Min 1 tab PO DAILY 08/05/18 [Ocuvite (Nf)] Dabigatran Etexilate Mesylate 150 mg PO BID 08/05/18 [Pradaxa -] Famotidine [Pepcid] 40 mg PO ASDIR 08/05/18 Ferrous Sulfate [Feosol] 325 mg PO DAILY 08/05/18 Furosemide [Lasix] 80 mg PO BID 08/05/18 Levothyroxine [Synthroid -] 100 mcg PO DAILY 08/05/18 Metolazone [Zaroxolyn -] 2.5 mg PO DAILY 08/05/18 Metoprolol Tartrate [Lopressor -] 25 mg PO BID 08/05/18 Potassium Chloride 20 meq PO 5XD 08/05/18 ASSESSMENT AND PLAN: Patient is a 87y/o gentleman with h/o systolic and diastolic heart failure, HTN , A fib, 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 #Acute GI bleed with acute blood loss anemia. no obvious bleeding at this time but H/H dropped, as per GI if continue to drop H/H , would like to proceed with enteroscopy and further evaluation . On IV protonix 40mg daily. s/p PPI drip # Acute CVA with aphasia : improved. but h/h continues to drop, might need abdominal/pelvis CTA in setting of bleed , will continue to hold AC and ASA, neuro checks , on ice chips only, continue NPo except ice and meds. # H/x A fib: on IV lopressor prn and po BB continue. Patient had a brief episodes of wide complex tachycardia . continue to hold AC, monitor on tele, keep electrolytes in nL range as had VTACH on tele. #H/x of R systolic/L diastolic heart failure: continue to hold Diuretics but continue BB. #H/x of Idioventricular rate, s/p PPM . DVT Px: Scds
--- NOTE | 2018-08-31 08:40 | PN ---
Progress Note, Physician Chief Complaint: seen and examined in ICU Awake and alert Denies CP or SOB TELE: AF now rate controlled. - Current Medication List Current Medications: Active Medications Sodium Chloride (1/2 Normal Saline) 1,000 mls @ 65 mls/hr IV ASDIR [facility] Last Admin: 08/30/18 09:06 Dose: 65 mls/hr Metoprolol Tartrate (Lopressor -) 25 mg PO BID [facility] Last Admin: 08/30/18 10:49 Dose: Not Given Metoprolol Tartrate (Lopressor Injection -) 5 mg IVPUSH Q4H PRN PRN Reason: TACHYCARDIA Last Admin: 08/30/18 17:49 Dose: 5 mg Pantoprazole Sodium (Protonix Iv) 40 mg IVPUSH DAILY [facility] Last Admin: 08/30/18 14:39 Dose: 40 mg - Objective Vital Signs: Vital Signs Temperature 98.8 F 08/31/18 06:00 Pulse Rate 70 08/31/18 06:00 Respiratory Rate 22 H 08/31/18 06:00 Blood Pressure 94/73 08/31/18 06:00 O2 Sat by Pulse Oximetry (%) 99 08/30/18 23:23 Constitutional: Yes: No Distress, Calm Cardiovascular: Yes: Pulse Irregular Respiratory: Yes: CTA Bilaterally Gastrointestinal: Yes: Soft (NT) Edema: No Neurological: Yes: Alert Labs: CBC, BMP 08/31/18 05:30 08/31/18 05:30 INR, PTT INR 1.35 (0.83-1.09) H 08/31/18 05:30 Laboratory Tests 08/31/18 08/31/18 05:30 05:30 WBC 6.9 Hct 25.5 L Plt Count 134 D Sodium 145 Potassium 3.4 L BUN 28 H Creatinine 1.1 - ....Imaging EKG: Image Reviewed Assessment/Plan IMP: GI Bleed Acute Blood Loss Anemia Atrial Fibrillation with RVR s/p PPM LV Systolic/Diastolic Dysfunction r/o Acute CVA REC: 1. Heart rate much improved with Lopressor, continue 2. Hold AC in setting GI bleed. 3. Continued w/u as per GI and Neuro 4. ICU monitoring: IV PPI, serial CBCs Coverage for [employer]
[2018-08-31] MEDS ORDERED: SODIUM CHLORIDE 0.45% 1,000 ML IV SCH (08:46)
[2018-08-31] MEDS: PANTOPRAZOLE SODIUM 40 MG VIAL IVPUSH SCH (09:13)
--- NOTE | 2018-08-31 10:03 | EKG ---
Test Reason : Blood Pressure : / mmHG Vent. Rate : 082 BPM Atrial Rate : 080 BPM P-R Int : 000 ms QRS Dur : 142 ms QT Int : 456 ms P-R-T Axes : 000 -40 -71 degrees QTc Int : 532 ms ATRIAL FIBRILLATION WITH OCCASIONAL ventricular-paced complexes AND WITH PREMATURE VENTRICULAR OR ABERRANTLY CONDUCTED COMPLEXES LEFT AXIS DEVIATION RIGHT BUNDLE BRANCH BLOCK T WAVE ABNORMALITY, CONSIDER LATERAL ISCHEMIA ABNORMAL ECG Confirmed by NANI JORDAN MD ([id number]) on 08/31/2018 10:03:15 AM Referred By: Confirmed By:NANI JORDAN MD
--- NOTE | 2018-08-31 10:23 | PN ---
Physical Exam: SUBJECTIVE: Patient seen and examined Afib w/ RVR overnight, digoxin 1gm total given, return to sinus Hb 10.1 --> 8.6 OBJECTIVE: Vital Signs Period Temp Pulse Resp BP Sys/Servin Pulse Ox Last 24 Hr 97.6 F-99.4 F 60-162 18-28 87-124/41-73 95-99 GENERAL: The patient is awake, alert, and fully oriented HEAD: Normal with no signs of trauma. EYES: PERRLA, extraocular movements intact, sclera anicteric, conjunctiva clear. No ptosis. ENT: dry mucous membranes. NECK: Trachea midline, full range of motion LUNGS: some coarse and rhonchus breath sounds bilaterally, no wheezes, no crackles, no accessory muscle use. HEART: regular rate and rhythm, S1, S2 without murmur, rub or gallop. ABDOMEN: Soft, nontender, nondistended, normoactive bowel sounds, no guarding, no rebound, no hepatosplenomegaly, no masses. EXTREMITIES: 2+ pulses, warm, well-perfused, no edema. NEUROLOGICAL: Cranial nerves II through XII grossly intact. Slurred and slow speech SKIN: Warm, dry, normal turgor, no rashes or lesions noted RECTAL: gross bright red blood Laboratory Results - last 24 hr 08/27/18 08/30/18 08/30/18 11:40 05:30 13:31 WBC 4.0 RBC 2.89 L Hgb 9.6 L Hct 26.9 L MCV 93.0 MCH 33.0 MCHC 35.5 RDW 22.8 H Plt Count 168 MPV 8.0 Absolute Neuts (auto) 3.0 Neutrophils % 76.5 Neutrophils % (Manual) Lymphocytes % 15.2 D Lymphocytes % (Manual) Monocytes % 6.2 Monocytes % (Manual) Eosinophils % 1.5 Basophils % 0.6 Nucleated RBC % 0 Hypochromia 0 Platelet Estimate Decreased Platelet Comment Polychromasia 1+ Poikilocytosis 0 Anisocytosis 2+ Microcytosis 1+ Macrocytosis 1+ Spherocytes 1+ Ovalocytes 1+ PT with INR INR PTT (Actin FS) Sodium Potassium Chloride Carbon Dioxide Anion Gap BUN Creatinine Creat Clearance w eGFR Random Glucose Calcium Phosphorus Magnesium Total Bilirubin AST ALT Alkaline Phosphatase Troponin I Total Protein Albumin Blood Type A POSITIVE Antibody Screen Negative Crossmatch See Detail 08/30/18 08/30/18 08/30/18 13:31 20:00 21:40 WBC 6.9 RBC 3.01 L Hgb 10.1 L Hct 28.2 L MCV 93.6 MCH 33.5 MCHC 35.7 RDW 22.9 H Plt Count 192 MPV 8.0 Absolute Neuts (auto) 6.4 Neutrophils % 92.7 H D Neutrophils % (Manual) 90.0 H Lymphocytes % 4.3 L D Lymphocytes % (Manual) 5.0 L Monocytes % 2.4 L Monocytes % (Manual) 5 Eosinophils % 0.2 D Basophils % 0.4 Nucleated RBC % 0 Hypochromia 1+ Platelet Estimate Adequate Platelet Comment No clumping noted Polychromasia 1+ Poikilocytosis Anisocytosis 3+ Microcytosis 1+ Macrocytosis 2+ Spherocytes Ovalocytes 1+ PT with INR INR PTT (Actin FS) Sodium Potassium Chloride Carbon Dioxide Anion Gap BUN Creatinine Creat Clearance w eGFR Random Glucose Calcium Phosphorus Magnesium Total Bilirubin AST ALT Alkaline Phosphatase Troponin I 0.15 H 0.12 H Total Protein Albumin Blood Type Antibody Screen Crossmatch 08/30/18 08/31/18 08/31/18 21:40 05:30 05:30 WBC 6.9 RBC 2.73 L Hgb 8.6 L Hct 25.5 L MCV 93.4 MCH 31.5 MCHC 33.7 RDW 21.9 H Plt Count 134 D MPV 7.5 Absolute Neuts (auto) 6.2 Neutrophils % 90.4 H Neutrophils % (Manual) Lymphocytes % 6.3 L D Lymphocytes % (Manual) Monocytes % 2.6 L Monocytes % (Manual) Eosinophils % 0.4 D Basophils % 0.3 Nucleated RBC % 0 Hypochromia Platelet Estimate Platelet Comment Polychromasia Poikilocytosis Anisocytosis Microcytosis Macrocytosis Spherocytes Ovalocytes PT with INR INR PTT (Actin FS) Sodium 147 H 145 Potassium 3.7 3.4 L Chloride 114 H 113 H Carbon Dioxide 23 27 Anion Gap 10 6 L BUN 30 H 28 H Creatinine 1.3 1.1 Creat Clearance w eGFR 52.22 > 60 Random Glucose 127 H 98 Calcium 7.8 L 7.4 L Phosphorus 2.5 Magnesium 2.3 2.3 Total Bilirubin 1.2 H 1.0 AST 47 H 38 H ALT 22 19 Alkaline Phosphatase 116 96 Troponin I Total Protein 6.7 5.6 L Albumin 3.0 L 2.5 L Blood Type Antibody Screen Crossmatch 08/31/18 05:30 WBC RBC Hgb Hct MCV MCH MCHC RDW Plt Count MPV Absolute Neuts (auto) Neutrophils % Neutrophils % (Manual) Lymphocytes % Lymphocytes % (Manual) Monocytes % Monocytes % (Manual) Eosinophils % Basophils % Nucleated RBC % Hypochromia Platelet Estimate Platelet Comment Polychromasia Poikilocytosis Anisocytosis Microcytosis Macrocytosis Spherocytes Ovalocytes PT with INR 16.00 H INR 1.35 H PTT (Actin FS) 31.0 Sodium Potassium Chloride Carbon Dioxide Anion Gap BUN Creatinine Creat Clearance w eGFR Random Glucose Calcium Phosphorus Magnesium Total Bilirubin AST ALT Alkaline Phosphatase Troponin I Total Protein Albumin Blood Type Antibody Screen Crossmatch Active Medications Generic Name Dose Route Start Last Admin Trade Name Freq PRN Reason Stop Dose Admin Metoprolol Tartrate 25 mg 08/30/18 10:15 08/30/18 10:49 Lopressor - PO Not Given BID NEIL Metoprolol Tartrate 5 mg 08/30/18 10:24 08/30/18 17:49 Lopressor Injection - IVPUSH 5 mg Q4H PRN Administration TACHYCARDIA Pantoprazole Sodium 40 mg 08/30/18 13:30 08/31/18 09:13 Protonix Iv IVPUSH 40 mg DAILY NEIL Administration ASSESSMENT/PLAN: 87M PMH of systolic and diastolic HF, hypothyroidism, HTN, A fib, prior GI bleed w/ normal colonoscopy (), CVA (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 Black stools noticed by RN. Admitted to med/surg on 08/27. S/P 3 U PRBC since admission for Hb < 8. s/p EGD reportedly without evidence of active bleed Despite negative CT - Neurology feels patient clinically had CVA in [employer] distribution. Pt not a candidate for tPA. Neuro #Suspected [employer] CVA - Negative head CT, however clinically symptomatic for [employer] per Neurology - Speech/swallow evaluation for dysphagia and word finding difficulty - Neuro checks Q2H - Pt not a candidate for tPA. GI #UGIB vs LGIB - EGD with unremarkable findings for UGIB, unclear as to source of GIB - Possible UGIB with PUD on pmhx but unconfirmed by family - Hb 10.1 --> 8.6 since midnight - likely colonoscopy/enteroscopy needed, will keep NPO - Transfusion threshold Hb < 8 - Per DiGiorno note: Pradaxa half life of 12-17hr with normal kidney function and 15-18 hours with mod renal insuff. likely a low level (<10%) of Pradaxa present in pt. No reversal agent indicated. If continued active GI bleed, may need enteroscopy / colonoscopy. -Monitor H/H. If stable ok with downgrade to telemetry. Cardiac #Systolic/diastolic heart failure, afib - Brief episodes of wide complex tachycardia (08/29), narrow complex tachycardia (08/30) - currently sinus rhythm - ECHO (08/26) EF 55-60% with severely dilated RV,LA and RA - Home stockroom helper Dr. Jewell ([phone]) - Tele monitoring - Monitor electrolytes - Hold anticoagulants in setting of GIB - Hold Lasix - Elevated trop: likely demand. trend. repeat this afternoon F/E/N - 1/2 NS @ 42ml/hr for volume resuscitation with mindfulness of CHF. - Trend K, as history of chronic hypokalemic, replete lytes prn - Clear liquids DVT ppx - SCDs - hold AC in setting of GI bleed GI ppx -D/C PPI drip -protonix IVP qd Dispo: Stable, can be transfer to tele, otherwise necessitate enteroscopy/ colonoscopy Visit type - Emergency Visit Emergency Visit: No - New Patient This patient is new to me today: No - Critical Care Critical Care patient: No
[2018-08-31] MEDS: METOPROLOL TARTRATE 25 MG TABLET (FP) PO SCH ×2 (10:45→22:38)
--- NOTE | 2018-08-31 10:46 | PN ---
Teaching Attending Note Name of Resident: Barbara Quinones ATTENDING PHYSICIAN STATEMENT I saw and evaluated the patient. I reviewed the resident's note and discussed the case with the resident. I agree with the resident's findings and plan as documented. SUBJECTIVE: Pt seen and examined in the ICU. Dark stools overnight. AM H/H downtrending. Denies shortness of breath or chest pain. OBJECTIVE: Vital Signs Period Temp Pulse Resp BP Sys/Servin Pulse Ox Last 24 Hr 97.6 F-99.4 F 60-162 18-28 87-124/41-73 95-99 Intake & Output 08/28/18 08/29/18 08/30/18 08/31/18 23:59 23:59 23:59 23:59 Intake Total 650 1164 2354 780 Output Total 400 Balance 650 1164 1954 780 Weight 69.3 kg 68.1 kg Gen: NAD at rest Heart: RRR Lung: basilar rales, wheezes Abd: soft, nontender Ext: no edema CBC, BMP 08/31/18 05:30 08/31/18 05:30 Active Medications Metoprolol Tartrate (Lopressor -) 25 mg PO BID [facility] Last Admin: 08/31/18 10:45 Dose: 25 mg Metoprolol Tartrate (Lopressor Injection -) 5 mg IVPUSH Q4H PRN PRN Reason: TACHYCARDIA Last Admin: 08/30/18 17:49 Dose: 5 mg Pantoprazole Sodium (Protonix Iv) 40 mg IVPUSH DAILY [facility] Last Admin: 08/31/18 09:13 Dose: 40 mg ASSESSMENT AND PLAN: GI Bleed Acute Blood Loss Anemia Atrial Fibrillation with RVR s/p PPM LV Systolic/Diastolic Dysfunction r/o Acute CVA - monitor H/H - continue protonix - rate control with metoprolol - PO per GI - d/c IVF - DVT prophylaxis - can monitor on telemetry
--- NOTE | 2018-08-31 11:07 | PN ---
Progress Note, Physician History of Present Illness: events noted in chart reviewed Patient seen on the medical ICU is at the bedside Much more attentive and coherent knows the holiday knows where he is Had some difficulty with aspiration earlier. Hemodynamically with low blood pressure Still unfortunately with the anemia On IV fluid and protonix - Current Medication List Current Medications: Active Medications Metoprolol Tartrate (Lopressor -) 25 mg PO BID [facility] Last Admin: 08/31/18 10:45 Dose: 25 mg Metoprolol Tartrate (Lopressor Injection -) 5 mg IVPUSH Q4H PRN PRN Reason: TACHYCARDIA Last Admin: 08/30/18 17:49 Dose: 5 mg Pantoprazole Sodium (Protonix Iv) 40 mg IVPUSH DAILY [facility] Last Admin: 08/31/18 09:13 Dose: 40 mg - Objective Vital Signs: Vital Signs Temperature 97.6 F 08/31/18 08:00 Pulse Rate 76 08/31/18 08:00 Respiratory Rate 22 H 08/31/18 09:00 Blood Pressure 103/41 L 08/31/18 08:00 O2 Sat by Pulse Oximetry (%) 95 08/31/18 09:00 Constitutional: Yes: Well Nourished Eyes: Yes: WNL Neurological: Yes: Alert, Oriented, Babinski positive ...Motor Strength: WNL Labs: CBC, BMP 08/31/18 05:30 08/31/18 05:30 INR, PTT INR 1.35 (0.83-1.09) H 08/31/18 05:30 Problem List - Problems (1) CVA (cerebral vascular accident) Assessment/Plan: unfortunately still not safe to start antiplatelet treatment or anticoagulation Hemodynamically unstable Anemia Watershed infarct 1. Still trying to get ahold of the [employer] card for the pacemaker 2. Neuro checks every hour 3 follow-up with GI 4. Daily CBC 5. Advance diet to thickened liquid 6. Physical therapy at bedside 7. DVT prophylaxis with SCDs Lengthy discussion with the regarding the prognosis and the questionable diagnosis of CVA. Code(s): I63.9 - CEREBRAL INFARCTION, UNSPECIFIED Qualifiers: Qualified Code(s): I63.532 - Cerebral infarction due to unspecified occlusion or stenosis of left posterior cerebral artery
--- NOTE | 2018-08-31 11:40 | PN ---
Physical Exam: SUBJECTIVE: Patient seen and examined. Received loading and 2 maintenance doses of Digoxin (3 doses total) overnight to good effect. Pt. received 12.5mg of Metoprolol overnight to good effect. Per overnight nurse, Pt. had a BM with minimal blood in stool. Pt. denies any new complaints at this time. Pt. c/o dry mouth and hunger. OBJECTIVE: Vital Signs Period Temp Pulse Resp BP Sys/Servin Pulse Ox Last 24 Hr 97.6 F-99.4 F 60-162 18-28 87-124/41-73 95-99 GENERAL: The patient is awake, alert, and fully oriented, in no acute distress. EYES: PERRL, extraocular movements intact, sclera anicteric, conjunctiva clear. No ptosis. ENT: Ears normal, nares patent, oropharynx clear without exudates, moist mucous membranes. NECK: Trachea midline, full range of motion, supple, decreased JVD from last physical exam LUNGS: mild diffuse wheezes, bibasilar crackles, no accessory muscle use. HEART: Irregular rate and rhythm, S1, S2 without murmur ABDOMEN: Soft, nontender, nondistended, normoactive bowel sounds, no guarding, no rebound EXTREMITIES: 2+ dorsal pedal and radial pulses, warm, well-perfused, 2<sec. cap. refill, no calf tenderness, no edema, b/l LE erythema R>L, RLE: 1+ edema, 4 /5 muscle strength (baseline), LLE: no edema, 5/5 muscle strength NEUROLOGICAL: Cranial nerves II through XII grossly intact. Normal speech, gait not observed. PSYCH: Normal mood, normal affect. SKIN: Warm, dry, normal turgor Laboratory Results - last 24 hr 08/27/18 08/30/18 08/30/18 11:40 05:30 13:31 WBC 4.0 RBC 2.89 L Hgb 9.6 L Hct 26.9 L MCV 93.0 MCH 33.0 MCHC 35.5 RDW 22.8 H Plt Count 168 MPV 8.0 Absolute Neuts (auto) 3.0 Neutrophils % 76.5 Neutrophils % (Manual) Lymphocytes % 15.2 D Lymphocytes % (Manual) Monocytes % 6.2 Monocytes % (Manual) Eosinophils % 1.5 Basophils % 0.6 Nucleated RBC % 0 Hypochromia 0 Platelet Estimate Decreased Platelet Comment Polychromasia 1+ Poikilocytosis 0 Anisocytosis 2+ Microcytosis 1+ Macrocytosis 1+ Spherocytes 1+ Ovalocytes 1+ PT with INR INR PTT (Actin FS) Sodium Potassium Chloride Carbon Dioxide Anion Gap BUN Creatinine Creat Clearance w eGFR Random Glucose Calcium Phosphorus Magnesium Total Bilirubin AST ALT Alkaline Phosphatase Troponin I Total Protein Albumin Blood Type A POSITIVE Antibody Screen Negative Crossmatch See Detail 08/30/18 08/30/18 08/30/18 13:31 20:00 21:40 WBC 6.9 RBC 3.01 L Hgb 10.1 L Hct 28.2 L MCV 93.6 MCH 33.5 MCHC 35.7 RDW 22.9 H Plt Count 192 MPV 8.0 Absolute Neuts (auto) 6.4 Neutrophils % 92.7 H D Neutrophils % (Manual) 90.0 H Lymphocytes % 4.3 L D Lymphocytes % (Manual) 5.0 L Monocytes % 2.4 L Monocytes % (Manual) 5 Eosinophils % 0.2 D Basophils % 0.4 Nucleated RBC % 0 Hypochromia 1+ Platelet Estimate Adequate Platelet Comment No clumping noted Polychromasia 1+ Poikilocytosis Anisocytosis 3+ Microcytosis 1+ Macrocytosis 2+ Spherocytes Ovalocytes 1+ PT with INR INR PTT (Actin FS) Sodium Potassium Chloride Carbon Dioxide Anion Gap BUN Creatinine Creat Clearance w eGFR Random Glucose Calcium Phosphorus Magnesium Total Bilirubin AST ALT Alkaline Phosphatase Troponin I 0.15 H 0.12 H Total Protein Albumin Blood Type Antibody Screen Crossmatch 08/30/18 08/31/18 08/31/18 21:40 05:30 05:30 WBC 6.9 RBC 2.73 L Hgb 8.6 L Hct 25.5 L MCV 93.4 MCH 31.5 MCHC 33.7 RDW 21.9 H Plt Count 134 D MPV 7.5 Absolute Neuts (auto) 6.2 Neutrophils % 90.4 H Neutrophils % (Manual) Lymphocytes % 6.3 L D Lymphocytes % (Manual) Monocytes % 2.6 L Monocytes % (Manual) Eosinophils % 0.4 D Basophils % 0.3 Nucleated RBC % 0 Hypochromia Platelet Estimate Platelet Comment Polychromasia Poikilocytosis Anisocytosis Microcytosis Macrocytosis Spherocytes Ovalocytes PT with INR INR PTT (Actin FS) Sodium 147 H 145 Potassium 3.7 3.4 L Chloride 114 H 113 H Carbon Dioxide 23 27 Anion Gap 10 6 L BUN 30 H 28 H Creatinine 1.3 1.1 Creat Clearance w eGFR 52.22 > 60 Random Glucose 127 H 98 Calcium 7.8 L 7.4 L Phosphorus 2.5 Magnesium 2.3 2.3 Total Bilirubin 1.2 H 1.0 AST 47 H 38 H ALT 22 19 Alkaline Phosphatase 116 96 Troponin I Total Protein 6.7 5.6 L Albumin 3.0 L 2.5 L Blood Type Antibody Screen Crossmatch 08/31/18 05:30 WBC RBC Hgb Hct MCV MCH MCHC RDW Plt Count MPV Absolute Neuts (auto) Neutrophils % Neutrophils % (Manual) Lymphocytes % Lymphocytes % (Manual) Monocytes % Monocytes % (Manual) Eosinophils % Basophils % Nucleated RBC % Hypochromia Platelet Estimate Platelet Comment Polychromasia Poikilocytosis Anisocytosis Microcytosis Macrocytosis Spherocytes Ovalocytes PT with INR 16.00 H INR 1.35 H PTT (Actin FS) 31.0 Sodium Potassium Chloride Carbon Dioxide Anion Gap BUN Creatinine Creat Clearance w eGFR Random Glucose Calcium Phosphorus Magnesium Total Bilirubin AST ALT Alkaline Phosphatase Troponin I Total Protein Albumin Blood Type Antibody Screen Crossmatch Active Medications Current Medications Metoprolol Tartrate (Lopressor -) 25 mg PO BID [facility] Last Admin: 08/31/18 10:45 Dose: 25 mg Metoprolol Tartrate (Lopressor Injection -) 5 mg IVPUSH Q4H PRN PRN Reason: TACHYCARDIA Last Admin: 08/30/18 17:49 Dose: 5 mg Pantoprazole Sodium (Protonix Iv) 40 mg IVPUSH DAILY [facility] Last Admin: 08/31/18 09:13 Dose: 40 mg Home Medications Medication Instructions Recorded Ascorbic Acid [Vitamin C] 500 mg PO DAILY 08/05/18 Atorvastatin Ca [Lipitor] 10 mg PO ASDIR 08/05/18 Beta-Carotene(A) W-C and E/Min 1 tab PO DAILY 08/05/18 [Ocuvite (Nf)] Dabigatran Etexilate Mesylate 150 mg PO BID 08/05/18 [Pradaxa -] Famotidine [Pepcid] 40 mg PO ASDIR 08/05/18 Ferrous Sulfate [Feosol] 325 mg PO DAILY 08/05/18 Furosemide [Lasix] 80 mg PO BID 08/05/18 Levothyroxine [Synthroid -] 100 mcg PO DAILY 08/05/18 Metolazone [Zaroxolyn -] 2.5 mg PO DAILY 08/05/18 Metoprolol Tartrate [Lopressor -] 25 mg PO BID 08/05/18 Potassium Chloride 20 meq PO 5XD 08/05/18 ASSESSMENT/PLAN: An 87 y.o. M w/ PMHx. of A. Fib( On Pradaxa), HTN, CVA(2010), HLD, CHFrEF, Hypothyroidism and Hx. of GI Bleed a few years ago presents to the ED with expressive aphasia, "not feeling himself", and GI bleed. -Suspected Ischemic Stroke- resolving CT Head: shows chronic infarcts in left external capsule, no definite acute intracranial pathology. Per Dr. Bueno(consult appreciated) suspicion for left STOCK [employer] occipital stroke Rpt. CT Head shows no interval change from 1st CT head. not a candidate for A/C or tPA as Pt. has ongoing GI bleed, recent PPM surgery ( 3 weeks ago) and has stroke like symptoms while on Pradaxa. -Anemia 2/2 GI bleed superimposed on chronic anemia HgB 11-->8.0-->7.5--> 1 unit pRBC-->7.8--> 1 unit pRBC-->8.1-->8.3--> 1 unit pRBC-->9.4-->9.1-->10.1-->8.6 transfusion threshold is 8.0 Endoscopy negative for localizing bleeding source, if bleeding persists or H/H begins to drop will do enteroscopy Pt. takes Ferosol at home Hx. of GI bleed in past last colonospcopy unremarkable per . consult for Dr. Murphy appreciated, can do colonoscopy if enteroscopy unrevealing and if bleeding persists. CTA can also be done if able to time acute bleeding with imaging. D/c- protonix drip as EGD was unrevealing c/w Protonix 40mg IVP Initial INR on admission was 5.1-->1.35 today Pt. having bloody BMs since hospital admission, volume of bloody BM is starting to trend down. -A.fib Hold anticoagulation in setting of GI bleed Echo shows: EF-55-60%, RV,LA and RA severely dilated, mild MVP, severe TR, pulm. artery pressure of 46mmHg Telemetry monitoring c/w home dose metoprolol; s/p digoxin loading and 2 maintenance doses to good effect. medical records appreciated, Dr. 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 Pacemaker is MRI conditional, however given the [facility] policy, Pt. is unable to get MRI. Spoke with two attending radiologists who have confirmed this policy. -HTN-stable resume home BP medications at home doses as BP has been trending up -CHFrEF-stable Echo 08/26 appreciated as noted above monitor volume status- a little volume overloaded today hold Lasix will reassess tomorrow -F/E/N D/c-ed IVF with mindfulness of CHF replete potassium as needed, chronically hypokalemic Diet advanced to puree, nectar thick per Speech and Swallow. -DVT Ppx. SCDs hold AC in setting of GI bleed Visit type - Emergency Visit Emergency Visit: Yes ED Registration Date: 08/27/18 Care time: The patient presented to the Emergency Department on the above date and was hospitalized for further evaluation of their emergent condition. - New Patient This patient is new to me today: No - Critical Care Critical Care patient: No - Discharge Referral Referred to [facility] Med P.C.: No
--- NOTE | 2018-08-31 11:48 | PN ---
GI Progress Note Subjective: Small dark BM noted overnight Dark BM vs. Fresh blood noted overnight Hgb 8.4 this morning - Objective Vital Signs: Vital Signs Temperature 97.6 F 08/31/18 08:00 Pulse Rate 74 08/31/18 10:00 Respiratory Rate 24 H 08/31/18 10:00 Blood Pressure 103/52 L 08/31/18 10:00 O2 Sat by Pulse Oximetry (%) 95 08/31/18 09:00 Constitutional: Calm Eyes: No: Sclera Icterus Cardiovascular: Yes: Regular Rate and Rhythm Respiratory: Yes: Diminished (at bases b/l) Gastrointestinal Inspection: No: Distention ...Auscultate: Yes: Normoactive Bowel Sounds ...Palpate: Yes: Soft. No: Tenderness ...Rectal Exam: Yes: Other (dark brown stool mixed with dark blood) Edema: No Neurological: Yes: Alert Labs: CBC, BMP 08/31/18 05:30 08/31/18 05:30 INR, PTT INR 1.35 (0.83-1.09) H 08/31/18 05:30 Problem List - Problems (1) GI bleed Assessment/Plan: For repeat CBC. If continued episodes of rectal bleeding and droipping H/H, Given prior EGD finding of ? old blood refluxing up into duodenum, would proceed with enteroscopy for further evaluation. if unreevaling would need colonocopy Dr. Mendoza covering from 5pm today through the weekend Code(s): K92.2 - GASTROINTESTINAL HEMORRHAGE, UNSPECIFIED
[2018-08-31 13:31] LABS: BASO % 0.4 % (0-2.0); EOS % 1.1 % (0-4.5); HEMOGLOBIN 8.9 GM/dL (11.7-16.9); LYMPH % 6.9 % (8-40); MCH 33.3 pg (25.7-33.7); MCHC 35.7 g/dl (32.0-35.9); MEAN CELL VOLUME 93.3 fl (80-96); MEAN PLT VOLUME 7.7 fl (7.5-11.1); MONO % 2.6 % (3.8-10.2); PLATELET COUNT 147 K/MM3 (134-434); RBC 2.68 M/mm3 (4.00-5.60); RDW 21.7 % (11.9-15.9); WHITE BLOOD COUNT 6.1 K/mm3 (4.0-10.0)
--- NOTE | 2018-08-31 14:48 | PN ---
Progress Note (short form) - Note Progress Note: Patient safe for MRI after September 18 confirmed by [employer] PPM placed 2 weeks ago.
--- NOTE | 2018-08-31 17:44 | PN ---
Progress Note (short form) - Note Progress Note: Pt with elevated trop 0.28 from 0.12. Repeat EKG w/o changes from past one. Pt asymptomatic without chest pain. Case d/w cardio; likely 2/2 demand ischemia concerning recent episodes of rapid afib. However, will continue to trend - next trop at 9pm. Kira Monet MD PGY-2 Medicine team
--- NOTE | 2018-08-31 18:00 | PN ---
Progress Note (short form) - Note Progress Note: Patient's troponin increased from 0.12-->0.28. Patient's vitals are stable and is asymptomatic. Medical team reached to emulsification operator-likely demand ischemia. Will trend the trops. Patient wants to try jello. Discussed with Dr. Murphy-since he is not actively bleeding, we can try clears. Bed side swallow eval and try jello.
[2018-08-31 20:09] LABS: BASO % 0.3 % (0-2.0); EOS % 2.5 % (0-4.5); HEMATOCRIT 26.5 % (35.4-49); HEMOGLOBIN 9.3 GM/dL (11.7-16.9); LYMPH % 7.7 % (8-40); MCHC 35.2 g/dl (32.0-35.9); MEAN CELL VOLUME 93.8 fl (80-96); MEAN PLT VOLUME 7.8 fl (7.5-11.1); MONO % 2.6 % (3.8-10.2); NEUT % 86.9 % (42.8-82.8); PLATELET COUNT 173 K/MM3 (134-434); RBC 2.83 M/mm3 (4.00-5.60); RDW 21.8 % (11.9-15.9); WHITE BLOOD COUNT 5.5 K/mm3 (4.0-10.0)
[2018-09-01 07:11] LABS: BASO % 0.5 % (0-2.0); EOS % 3.1 % (0-4.5); HEMATOCRIT 27.4 % (35.4-49); HEMOGLOBIN 9.1 GM/dL (11.7-16.9); LYMPH % 9.8 % (8-40); MCH 31.1 pg (25.7-33.7); MCHC 33.1 g/dl (32.0-35.9); MEAN CELL VOLUME 93.9 fl (80-96); MEAN PLT VOLUME 7.3 fl (7.5-11.1); MONO % 2.9 % (3.8-10.2); NEUT % 83.7 % (42.8-82.8); PLATELET COUNT 149 K/MM3 (134-434); RBC 2.92 M/mm3 (4.00-5.60); RDW 21.9 % (11.9-15.9)
[2018-09-01 07:42] LABS: ALBUMIN 2.6 g/dl (3.4-5.0); ALK PHOS 102 U/L (45-117); ANION GAP 7 MMOL/L (8-16); BILIRUBIN,TOTAL 1.2 mg/dL (0.2-1); BLOOD UREA NITROGEN 22 mg/dL (7-18); CALCIUM 7.4 mg/dL (8.5-10.1); CHLORIDE 112 mmol/L (98-107); CO2 26 mmol/L (21-32); GLUCOSE,RANDOM 88 mg/dL (74-106); MAGNESIUM 2.1 mg/dL (1.8-2.4); POTASSIUM 3.6 mmol/L (3.5-5.1); SGOT/AST 40 U/L (15-37); SGPT/ALT 19 U/L (13-61); SODIUM 145 mmol/L (136-145)
--- NOTE | 2018-09-01 08:08 | PN ---
Progress Note, Physician Chief Complaint: feeling well - having lunch denies abdominal pain as per staff 1 small dark BM - no gross blood - Current Medication List Current Medications: Active Medications Metoprolol Tartrate (Lopressor Injection -) 5 mg IVPUSH Q4H PRN PRN Reason: TACHYCARDIA Last Admin: 08/30/18 17:49 Dose: 5 mg Metoprolol Tartrate (Lopressor -) 25 mg PO BID [facility] Pantoprazole Sodium (Protonix Iv) 40 mg IVPUSH DAILY [facility] Last Admin: 08/31/18 09:13 Dose: 40 mg - Objective Vital Signs: Vital Signs Temperature 98 F 09/01/18 05:00 Pulse Rate 81 09/01/18 05:00 Respiratory Rate 20 09/01/18 05:00 Blood Pressure 116/51 L 09/01/18 05:00 O2 Sat by Pulse Oximetry (%) 97 08/31/18 21:00 Constitutional: Yes: Well Nourished, No Distress, Calm Eyes: Yes: WNL HENT: Yes: WNL Neck: Yes: WNL Cardiovascular: Yes: WNL, Regular Rate and Rhythm Respiratory: Yes: WNL, Regular, CTA Bilaterally Gastrointestinal: Yes: WNL, Normal Bowel Sounds, Soft Musculoskeletal: Yes: WNL Extremities: Yes: WNL Edema: No Labs: CBC, BMP 09/01/18 06:40 09/01/18 06:40 INR, PTT INR 1.35 (0.83-1.09) H 08/31/18 05:30 Problem List - Problems (1) CVA (cerebral vascular accident) Code(s): I63.9 - CEREBRAL INFARCTION, UNSPECIFIED Qualifiers: CVA mechanism: occlusion Precerebral and cerebral artery: posterior cerebral artery Laterality of affected vessel: left Qualified Code(s): I63.532 - Cerebral infarction due to unspecified occlusion or stenosis of left posterior cerebral artery (2) GI bleed Assessment/Plan: Dark stool likely old blood - no sign of active GI bleed at this time. - h/h stable , trend Q12 - c/w PPI therapy - hold a/c - he will need enteroscopy & colonoscopy to further evaluate the etiology of his gastrointestinal blood loss prior to resuming a/c . will plan for Monday Code(s): K92.2 - GASTROINTESTINAL HEMORRHAGE, UNSPECIFIED (3) Hypotension due to blood loss Code(s): I95.89 - OTHER HYPOTENSION
--- NOTE | 2018-09-01 08:53 | PN ---
Progress Note (short form) - Note Progress Note: Patient is comfortable with no acute distress, states that he is still having bleed but does not know whether is new or old. Vital Signs Temperature 98 F 09/01/18 05:00 Pulse Rate 81 09/01/18 05:00 Respiratory Rate 20 09/01/18 05:00 Blood Pressure 116/51 L 09/01/18 05:00 O2 Sat by Pulse Oximetry (%) 97 08/31/18 21:00 GENERAL: The patient is awake, alert, and fully oriented, in no acute distress. HEAD: Normal with no signs of trauma. EYES: PERRL, extraocular movements intact, sclera anicteric, conjunctiva clear. ENT: Ears normal, oropharynx clear without exudates, moist mucous membranes. NECK: supple, no JVD , LUNGS: Decreased breath sounds, no wheezes, no crackles, no accessory muscle use. HEART: Regular rate and rhythm, S1, S2 positive , no murmur, rub or gallop. ABDOMEN: Soft, NT, ND, normoactive bowel sounds, no guarding, no rebound, no masses. EXTREMITIES: pulses are positive 2+, warm, well-perfused. edema trace. NEUROLOGICAL: Cranial nerves II through XII grossly intact. Normal speech, gait not observed. PSYCH: Normal mood, normal affect. SKIN: Warm, dry, no rash noted. CBCD WBC 5.0 K/mm3 (4.0-10.0) 09/01/18 06:40 RBC 2.92 M/mm3 (4.00-5.60) L 09/01/18 06:40 Hgb 9.1 GM/dL (11.7-16.9) L 09/01/18 06:40 Hct 27.4 % (35.4-49) L 09/01/18 06:40 MCV 93.9 fl (80-96) 09/01/18 06:40 MCHC 33.1 g/dl (32.0-35.9) 09/01/18 06:40 RDW 21.9 % (11.9-15.9) H 09/01/18 06:40 Plt Count 149 K/MM3 (134-434) 09/01/18 06:40 MPV 7.3 fl (7.5-11.1) L 09/01/18 06:40 CMP Sodium 145 mmol/L (136-145) 09/01/18 06:40 Potassium 3.6 mmol/L (3.5-5.1) 09/01/18 06:40 Chloride 112 mmol/L (98-107) H 09/01/18 06:40 Carbon Dioxide 26 mmol/L (21-32) 09/01/18 06:40 Anion Gap 7 MMOL/L (8-16) L 09/01/18 06:40 BUN 22 mg/dL (7-18) H 09/01/18 06:40 Creatinine 1.0 mg/dL (0.55-1.3) 09/01/18 06:40 Creat Clearance w eGFR > 60 (>60) 09/01/18 06:40 Random Glucose 88 mg/dL (74-106) 09/01/18 06:40 Calcium 7.4 mg/dL (8.5-10.1) L 09/01/18 06:40 Total Bilirubin 1.2 mg/dL (0.2-1) H 09/01/18 06:40 AST 40 U/L (15-37) H 09/01/18 06:40 ALT 19 U/L (13-61) 09/01/18 06:40 Alkaline Phosphatase 102 U/L (45-117) 09/01/18 06:40 Total Protein 6.0 g/dl (6.4-8.2) L 09/01/18 06:40 Albumin 2.6 g/dl (3.4-5.0) L 09/01/18 06:40 CARDIAC ENZYMES Creatine Kinase 101 IU/L (26-308) 08/27/18 11:40 Troponin I 0.22 ng/ml (0.00-0.05) H 08/31/18 19:40 Current Medications Generic Name Dose Route Start Last Admin Trade Name Freq PRN Reason Stop Dose Admin Metoprolol Tartrate 5 mg 08/30/18 10:24 08/30/18 17:49 Lopressor Injection - IVPUSH 5 mg Q4H PRN Administration TACHYCARDIA Metoprolol Tartrate 25 mg 09/01/18 10:00 Lopressor - PO BID NEIL Pantoprazole Sodium 40 mg 08/30/18 13:30 08/31/18 09:13 Protonix Iv IVPUSH 40 mg DAILY NEIL Administration Home Medications Medication Instructions Recorded Ascorbic Acid [Vitamin C] 500 mg PO DAILY 08/05/18 Atorvastatin Ca [Lipitor] 10 mg PO ASDIR 08/05/18 Beta-Carotene(A) W-C and E/Min 1 tab PO DAILY 08/05/18 [Ocuvite (Nf)] Dabigatran Etexilate Mesylate 150 mg PO BID 08/05/18 [Pradaxa -] Famotidine [Pepcid] 40 mg PO ASDIR 08/05/18 Ferrous Sulfate [Feosol] 325 mg PO DAILY 08/05/18 Furosemide [Lasix] 80 mg PO BID 08/05/18 Levothyroxine [Synthroid -] 100 mcg PO DAILY 08/05/18 Metolazone [Zaroxolyn -] 2.5 mg PO DAILY 08/05/18 Metoprolol Tartrate [Lopressor -] 25 mg PO BID 08/05/18 Potassium Chloride 20 meq PO 5XD 08/05/18 ASSESSMENT AND PLAN: Patient is a 87y/o gentleman with h/o systolic and diastolic heart failure, HTN , A fib, 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 #Acute GI bleed with acute blood loss anemia will continue to monitor , H/H is stable. will repeat H/H for am, As per GI if continue to drop H/H , would like to proceed with enteroscopy and further evaluation . On IV protonix 40mg daily. s/p PPI drip # Acute CVA with aphasia : improved. but h/h continues to drop, might need abdominal/pelvis CTA in setting of bleed , will continue to hold AC and ASA, neuro checks , on ice chips only, continue NPo except ice and meds. # H/x A fib: on IV lopressor prn and po BB continue. Patient had a brief episodes of wide complex tachycardia . continue to hold AC, monitor on tele, keep electrolytes in nL range as had VTACH on tele. #H/x of systolic/ diastolic heart failure: continue to hold Diuretics but continue BB. #H/x of Idioventricular rate, s/p PPM . DVT Px: Scds Visit type - Emergency Visit Emergency Visit: Yes ED Registration Date: 08/27/18 Care time: The patient presented to the Emergency Department on the above date and was hospitalized for further evaluation of their emergent condition. - New Patient This patient is new to me today: No - Critical Care Critical Care patient: No - Discharge Referral Referred to [facility] No
--- NOTE | 2018-09-01 09:21 | PN ---
Progress Note, Physician Chief Complaint: seen and examined No CP or SOB Denies palpitations. History of Present Illness: TELE: Atrial fibrillation. average rates 60-80 No pauses - Current Medication List Current Medications: Active Medications Metoprolol Tartrate (Lopressor Injection -) 5 mg IVPUSH Q4H PRN PRN Reason: TACHYCARDIA Last Admin: 08/30/18 17:49 Dose: 5 mg Metoprolol Tartrate (Lopressor -) 25 mg PO BID [facility] Pantoprazole Sodium (Protonix Iv) 40 mg IVPUSH DAILY [facility] Last Admin: 08/31/18 09:13 Dose: 40 mg - Objective Vital Signs: Vital Signs Temperature 98 F 09/01/18 05:00 Pulse Rate 81 09/01/18 05:00 Respiratory Rate 20 09/01/18 05:00 Blood Pressure 116/51 L 09/01/18 05:00 O2 Sat by Pulse Oximetry (%) 97 08/31/18 21:00 Constitutional: Yes: No Distress, Calm Cardiovascular: Yes: Pulse Irregular Respiratory: Yes: Other (left basilar rales.) Gastrointestinal: Yes: Soft (nontender) Edema: No Neurological: Yes: Alert Labs: CBC, BMP 09/01/18 06:40 09/01/18 06:40 INR, PTT INR 1.35 (0.83-1.09) H 08/31/18 05:30 Laboratory Tests 08/27/18 08/30/18 08/31/18 16:45 20:00 05:30 WBC Hgb Hct Plt Count INR 1.35 H Sodium Potassium BUN Creatinine Calcium Phosphorus Magnesium AST ALT Alkaline Phosphatase Troponin I 0.12 H Stool Occult Blood Negative 08/31/18 08/31/18 09/01/18 14:50 19:40 06:40 WBC 5.0 Hgb 9.1 L Hct 27.4 L Plt Count 149 INR Sodium Potassium BUN Creatinine Calcium Phosphorus Magnesium AST ALT Alkaline Phosphatase Troponin I 0.28 H 0.22 H Stool Occult Blood 09/01/18 06:40 WBC Hgb Hct Plt Count INR Sodium 145 Potassium 3.6 BUN 22 H Creatinine 1.0 Calcium 7.4 L Phosphorus 2.0 L Magnesium 2.1 AST 40 H ALT 19 Alkaline Phosphatase 102 Troponin I Stool Occult Blood Assessment/Plan IMP: GI Bleed Acute Blood Loss Anemia Atrial Fibrillation with RVR s/p PPM LV Systolic/Diastolic Dysfunction r/o Acute CVA REC: 1. Heart rate much improved with Lopressor, continue 2. Hold AC in setting GI bleed. 3. Continued w/u as per GI and Neuro 4. ICU monitoring: IV PPI, serial CBCs 5. May be developing mild pulmonary vascular congestion- Will monitor oxygen requirements and volume status. May need to be diuresed gently. Will hold for now as BP is borderline low. Monitor clinically. Coverage for Paras
[2018-09-01] MEDS: METOPROLOL TARTRATE 25 MG TABLET (FP) PO SCH ×2 (11:03→22:00)
[2018-09-01] MEDS: PANTOPRAZOLE SODIUM 40 MG VIAL IVPUSH SCH (11:03)
--- NOTE | 2018-09-01 12:03 | EKG ---
Test Reason : Blood Pressure : / mmHG Vent. Rate : 069 BPM Atrial Rate : 070 BPM P-R Int : 000 ms QRS Dur : 152 ms QT Int : 434 ms P-R-T Axes : 000 -38 -32 degrees QTc Int : 465 ms ATRIAL FIBRILLATION WITH OCCASIONAL ventricular-paced complexes LEFT AXIS DEVIATION RIGHT BUNDLE BRANCH BLOCK ABNORMAL ECG WHEN COMPARED WITH ECG OF 30-AUG-2018 13:17, VENT. RATE HAS DECREASED BY 13 BPM Confirmed by JUANCARLOS JONES MD ([id number]) on 09/01/2018 12:02:48 PM Referred By: Confirmed By:JUANCARLOS JONES MD
--- NOTE | 2018-09-01 15:23 | PN ---
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 He thought initially it was "on the paper," but then realized it was also in the bowl; he had EGD Wed with reportedly old blood seen to come up into duodenum but no bleeding source noted. He has had 3 units PRBC since admission. Hb dropped from 11 couple weeks ago to 8 on admission, has been 8-9 last couple of days. 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 Last dose of Pradaxa was last Monday am at home. He also has h/o volvulus/twisted intestines, requiring partial colon resection and colostomy with subsequent reversal. GI is following, and would consider rescoping with enteroscopy if bleeding appears to recur or Hb continues to drop. Pt is seen and examined on telemetry floor, sitting up in chair, and children at bedside. He reports feeling ok and is tolerating clear liquid diet. He had BM just a bit ago, which was black and tarry per nursing, along with some gas. He denies abdominal pain, N/V. He still has a cough (for last 2 years per family), and some end-expiratory wheezing with coughing. CXR has shown stable findings, pleural effusions mostly on right. - Current Medication List Current Medications: Active Medications Metoprolol Tartrate (Lopressor Injection -) 5 mg IVPUSH Q4H PRN PRN Reason: TACHYCARDIA Last Admin: 08/30/18 17:49 Dose: 5 mg Metoprolol Tartrate (Lopressor -) 25 mg PO BID [facility] Last Admin: 09/01/18 11:03 Dose: 25 mg Pantoprazole Sodium (Protonix Iv) 40 mg IVPUSH DAILY [facility] Last Admin: 09/01/18 11:03 Dose: 40 mg - Objective Vital Signs: Vital Signs Temperature 97.2 F L 09/01/18 13:22 Pulse Rate 66 09/01/18 13:22 Respiratory Rate 20 09/01/18 13:22 Blood Pressure 117/61 09/01/18 13:22 O2 Sat by Pulse Oximetry (%) 97 09/01/18 10:00 Constitutional: Yes: No Distress, Calm, Thin Eyes: Yes: Conjunctiva Clear, EOM Intact HENT: Yes: Atraumatic, Normocephalic Cardiovascular: Yes: Pulse Irregular Respiratory: Yes: Regular, Cough (intermittent, with end-expiratory wheezing ( upper airway?)), Diminished (at bases), Wheezes (audible at end of coughing, but not appreciated with regular breathing on auscultation of lungs) Gastrointestinal: Yes: Soft, Distention (tympanic upper). No: Tenderness ...Rectal Exam: Yes: Deferred, Guaiac Positive (likely, per nursing description of black tarry stools still) Musculoskeletal: No: Joint Stiffness, Joint Swelling (right elbow region much less swollen and edematous) Extremities: No: Cool, Cyanosis Integumentary: Yes: Bruising (few scattered). No: Jaundice Wound/Incision: Yes: Clean/Dry, Well Approximated (left anterior shoulder/ pacemaker site), Open to air Neurological: Yes: Alert, Oriented (appears so - occasional slow to find word(s ) still) Labs: CBC, BMP 09/01/18 06:40 09/01/18 06:40 INR, PTT INR 1.35 (0.83-1.09) H 08/31/18 05:30 Hb 8's to 9.3 last before this am BUN/Cr down troponins noted, trending down - ....Imaging Chest X-ray: Report Reviewed, Image Reviewed (image reviewed - right pleural effusion noted) Problem List - Problems (1) Gastrointestinal hemorrhage with melena Assessment/Plan: GI following had upper endoscopy enteroscopy potentially planned if continued evidence of bleeding Pradaxa and antiplatelet therapy on hold INR still slightly above normal may still be evacuating old blood with melena? on clear liquids CTA/bleeding scan if active bleeding evident (with IV hydration) trend labs, serial H/H watch electrolytes/replete prn cardiology and neurology also following would need optimization by both prior to any OR consideration would need bleeding localized with no other options for control to consider surgery high risk surgical candidate given comorbidities, age, previous abdominal surgery operative intervention would be last resort - briefly discussed with pt/family, but would discuss risks/benefits in more detail if it appears surgery could be required will follow peripherally - please call if needed urgently Code(s): K92.1 - MELENA (2) Anemia associated with acute blood loss Assessment/Plan: transfuse as indicated H/H stable for now Code(s): D62 - ACUTE POSTHEMORRHAGIC ANEMIA (3) Persistent atrial fibrillation Assessment/Plan: Pradaxa/antiplatelets on hold rate managed with beta lauren Code(s): I48.1 - PERSISTENT ATRIAL FIBRILLATION (4) CVA (cerebral vascular accident) Assessment/Plan: neurology suspects left TUBE SIZER 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/occipital stroke despite neg CT findings may be able to have MRI, but reportedly not until 09/18/18 Code(s): I63.9 - CEREBRAL INFARCTION, UNSPECIFIED Qualifiers: CVA mechanism: occlusion Precerebral and cerebral artery: posterior cerebral artery Laterality of affected vessel: left Qualified Code(s): I63.532 - Cerebral infarction due to unspecified occlusion or stenosis of left posterior cerebral artery (5) Altered mental status Assessment/Plan: improved Code(s): R41.82 - ALTERED MENTAL STATUS, UNSPECIFIED Qualifiers: Altered mental status type: transient alteration of awareness Qualified Code(s): R40.4 - Transient alteration of awareness (6) Biventricular CHF (congestive heart failure) Assessment/Plan: not decompensated Code(s): I50.82 - BIVENTRICULAR HEART FAILURE (7) Systolic CHF, chronic Code(s): I50.22 - CHRONIC SYSTOLIC (CONGESTIVE) HEART FAILURE (8) Hypothyroidism Code(s): E03.9 - HYPOTHYROIDISM, UNSPECIFIED Qualifiers: Hypothyroidism type: unspecified Qualified Code(s): E03.9 - Hypothyroidism , unspecified (9) Macular degeneration, age related Code(s): H35.30 - UNSPECIFIED MACULAR DEGENERATION
[2018-09-01 20:46] LABS: ALBUMIN 2.8 g/dl (3.4-5.0); ALK PHOS 109 U/L (45-117); ANION GAP 10 MMOL/L (8-16); BILIRUBIN,TOTAL 1.3 mg/dL (0.2-1); BLOOD UREA NITROGEN 20 mg/dL (7-18); CALCIUM 7.6 mg/dL (8.5-10.1); CHLORIDE 108 mmol/L (98-107); CO2 24 mmol/L (21-32); CREATININE 1.1 mg/dL (0.55-1.3); GLUCOSE,RANDOM 102 mg/dL (74-106); POTASSIUM 3.5 mmol/L (3.5-5.1); SGOT/AST 44 U/L (15-37); SGPT/ALT 23 U/L (13-61); SODIUM 143 mmol/L (136-145); TOT PROT 6.5 g/dl (6.4-8.2)
[2018-09-01] MEDS: KCL 10 MEQ IVPB 10 MEQ/100 ML INFUS.BAG IVPB SCH (20:58)
[2018-09-02 07:47] LABS: BASO % 0.4 % (0-2.0); HEMATOCRIT 24.5 % (35.4-49); HEMOGLOBIN 8.9 GM/dL (11.7-16.9); MCH 33.3 pg (25.7-33.7); MCHC 36.3 g/dl (32.0-35.9); MEAN CELL VOLUME 91.8 fl (80-96); NEUT % 80.6 % (42.8-82.8); PLATELET COUNT 172 K/MM3 (134-434); RBC 2.67 M/mm3 (4.00-5.60); RDW 20.9 % (11.9-15.9); WHITE BLOOD COUNT 4.5 K/mm3 (4.0-10.0)
[2018-09-02 08:19] LABS: MAGNESIUM 2.3 mg/dL (1.8-2.4); PHOSPHOROUS 2.1 mg/dL (2.5-4.9)
--- NOTE | 2018-09-02 09:41 | PN ---
Progress Note, Physician Chief Complaint: TELE: Atrial fibrillation, rate controlled No CP or SOB History of Present Illness: left basilar rales persist CXR reviewed: slightly increased PVC, possible left effusion. - Current Medication List Current Medications: Active Medications Metoprolol Tartrate (Lopressor Injection -) 5 mg IVPUSH Q4H PRN PRN Reason: TACHYCARDIA Last Admin: 08/30/18 17:49 Dose: 5 mg Metoprolol Tartrate (Lopressor -) 25 mg PO BID [facility] Last Admin: 09/01/18 22:00 Dose: 25 mg Pantoprazole Sodium (Protonix Iv) 40 mg IVPUSH DAILY [facility] Last Admin: 09/01/18 11:03 Dose: 40 mg - Objective Vital Signs: Vital Signs Temperature 97.5 F L 09/02/18 06:00 Pulse Rate 93 H 09/02/18 06:00 Respiratory Rate 20 09/02/18 06:00 Blood Pressure 108/67 09/02/18 06:00 O2 Sat by Pulse Oximetry (%) 96 09/01/18 21:00 Constitutional: Yes: Calm Eyes: Yes: Conjunctiva Clear Cardiovascular: Yes: Pulse Irregular Respiratory: Yes: Other (left basilar rales and decreased breath sounds at right base.) Gastrointestinal: Yes: Soft Edema: No Labs: CBC, BMP 09/02/18 06:25 09/01/18 19:55 INR, PTT INR 1.35 (0.83-1.09) H 08/31/18 05:30 - ....Imaging Chest X-ray: Image Reviewed EKG: Image Reviewed Assessment/Plan IMP: GI Bleed Acute Blood Loss Anemia Atrial Fibrillation with RVR s/p PPM LV Systolic/Diastolic Dysfunction r/o Acute CVA REC: 1. Heart rate much improved with Lopressor, continue 2. Hold AC in setting GI bleed. 3. Continued w/u as per GI, Surgery and Neuro 4. Tele monitoring: IV PPI, serial CBCs 5. Developing mild pulmonary congestion- start low dose Lasix Coverage for Paras
[2018-09-02] MEDS: PANTOPRAZOLE SODIUM 40 MG VIAL IVPUSH SCH (10:46)
[2018-09-02] MEDS: METOPROLOL TARTRATE 25 MG TABLET (FP) PO SCH ×2 (10:46→21:30)
[2018-09-02] MEDS ORDERED: NAPH,MB-DB/K PH,MBDB POWDER PACKET PO ONE (11:00)
--- NOTE | 2018-09-02 11:28 | PN ---
Progress Note, Physician Chief Complaint: feeling well denies abdominal pain states he feels he needs to move his bowels but is not comfortable to do so in the hospital NO further episode of GI bleed - Current Medication List Current Medications: Active Medications Furosemide (Lasix -) 20 mg PO BID@0600,1400 [facility] Metoprolol Tartrate (Lopressor Injection -) 5 mg IVPUSH Q4H PRN PRN Reason: TACHYCARDIA Last Admin: 08/30/18 17:49 Dose: 5 mg Metoprolol Tartrate (Lopressor -) 25 mg PO BID [facility] Last Admin: 09/02/18 10:46 Dose: 25 mg Pantoprazole Sodium (Protonix Iv) 40 mg IVPUSH DAILY [facility] Last Admin: 09/02/18 10:46 Dose: 40 mg - Objective Vital Signs: Vital Signs Temperature 97.5 F L 09/02/18 06:00 Pulse Rate 93 H 09/02/18 06:00 Respiratory Rate 20 09/02/18 06:00 Blood Pressure 108/67 09/02/18 06:00 O2 Sat by Pulse Oximetry (%) 96 09/01/18 21:00 Constitutional: Yes: Well Nourished, No Distress, Calm HENT: Yes: WNL Neck: Yes: WNL Cardiovascular: Yes: WNL, Regular Rate and Rhythm Respiratory: Yes: WNL, Regular, CTA Bilaterally Gastrointestinal: Yes: WNL, Normal Bowel Sounds, Soft Musculoskeletal: Yes: WNL Extremities: Yes: WNL Edema: No Labs: CBC, BMP 09/02/18 06:25 09/01/18 19:55 INR, PTT INR 1.35 (0.83-1.09) H 08/31/18 05:30 Problem List - Problems (1) CVA (cerebral vascular accident) Code(s): I63.9 - CEREBRAL INFARCTION, UNSPECIFIED Qualifiers: CVA mechanism: occlusion Precerebral and cerebral artery: posterior cerebral artery Laterality of affected vessel: left Qualified Code(s): I63.532 - Cerebral infarction due to unspecified occlusion or stenosis of left posterior cerebral artery (2) GI bleed Assessment/Plan: - h/h stable , trend Q12 - c/w PPI therapy - hold a/c - he will need enteroscopy & colonoscopy to further evaluate the etiology of his gastrointestinal blood loss prior to resuming a/c . will plan for Monday -- bowel prep ordered / NPO midnight / risk of bleeding sedation missed lesion infection and perforation explained to the patient and family at the bedside Code(s): K92.2 - GASTROINTESTINAL HEMORRHAGE, UNSPECIFIED (3) Hypotension due to blood loss Code(s): I95.89 - OTHER HYPOTENSION
--- NOTE | 2018-09-02 11:47 | PN ---
Physical Exam: SUBJECTIVE: Patient seen and examined. No acute events overnight. No BMs overnight. Pt. endorsed minimal blood in stool in the afternoon yesterday. Per nurse, Pt.s becomes tachycardic with activity. OBJECTIVE: Vital Signs Period Temp Pulse Resp BP Sys/Servin Pulse Ox Last 24 Hr 97.2 F-97.7 F 66-99 18-20 106-117/51-67 96 GENERAL: The patient is awake, alert, and fully oriented, in no acute distress. HEAD: Normal with no signs of trauma. EYES: Sclera anicteric, conjunctiva clear. No ptosis. ENT: Ears normal, nares patent, oropharynx clear without exudates, moist mucous membranes. NECK: Trachea midline, full range of motion, supple. LUNGS: Mild crackles in LLL, no wheezing, no accessory muscle use. HEART: Tachycardic Irregular rate and rhythm, S1, S2 without murmur ABDOMEN: Soft, nontender, nondistended, normoactive bowel sounds, no guarding, no rebound, no hepatosplenomegaly, no masses. EXTREMITIES: 2+ dorsal pedal pulses, warm, no calf tenderness, well-perfused, RLE: 1+ edema and moderate erythema; LLE: no edema and mild erythema; both LE same as before. NEUROLOGICAL: Normal speech, gait not observed. 5/5 muscle strength in 3/4 extremities (4/5 in RLE-baseline) PSYCH: Normal mood, normal affect. SKIN: Warm, dry, normal turgor, no rashes or lesions noted Laboratory Results - last 24 hr 08/27/18 09/01/18 09/02/18 11:40 19:55 06:25 WBC 4.5 RBC 2.67 L Hgb 8.9 L Hct 24.5 L MCV 91.8 MCH 33.3 MCHC 36.3 H RDW 20.9 H Plt Count 172 MPV 8.0 Absolute Neuts (auto) 3.6 Neutrophils % 80.6 Lymphocytes % 12.0 D Monocytes % 4.0 Eosinophils % 3.0 Basophils % 0.4 Nucleated RBC % 0 Sodium 143 Potassium 3.5 Chloride 108 H Carbon Dioxide 24 Anion Gap 10 BUN 20 H Creatinine 1.1 Creat Clearance w eGFR > 60 Random Glucose 102 Calcium 7.6 L Phosphorus Magnesium Total Bilirubin 1.3 H AST 44 H ALT 23 Alkaline Phosphatase 109 Total Protein 6.5 Albumin 2.8 L Blood Type A POSITIVE Antibody Screen Negative Crossmatch See Detail 09/02/18 06:25 WBC RBC Hgb Hct MCV MCH MCHC RDW Plt Count MPV Absolute Neuts (auto) Neutrophils % Lymphocytes % Monocytes % Eosinophils % Basophils % Nucleated RBC % Sodium Potassium Chloride Carbon Dioxide Anion Gap BUN Creatinine Creat Clearance w eGFR Random Glucose Calcium Phosphorus 2.1 L Magnesium 2.3 Total Bilirubin AST ALT Alkaline Phosphatase Total Protein Albumin Blood Type Antibody Screen Crossmatch Active Medications Current Medications Furosemide (Lasix -) 20 mg PO BID@0600,1400 [facility] Metoprolol Tartrate (Lopressor Injection -) 5 mg IVPUSH Q4H PRN PRN Reason: TACHYCARDIA Last Admin: 08/30/18 17:49 Dose: 5 mg Metoprolol Tartrate (Lopressor -) 25 mg PO BID [facility] Last Admin: 09/02/18 10:46 Dose: 25 mg Pantoprazole Sodium (Protonix Iv) 40 mg IVPUSH DAILY [facility] Last Admin: 09/02/18 10:46 Dose: 40 mg Home Medications Medication Instructions Recorded Ascorbic Acid [Vitamin C] 500 mg PO DAILY 08/05/18 Atorvastatin Ca [Lipitor] 10 mg PO ASDIR 08/05/18 Beta-Carotene(A) W-C and E/Min 1 tab PO DAILY 08/05/18 [Ocuvite (Nf)] Dabigatran Etexilate Mesylate 150 mg PO BID 08/05/18 [Pradaxa -] Famotidine [Pepcid] 40 mg PO ASDIR 08/05/18 Ferrous Sulfate [Feosol] 325 mg PO DAILY 08/05/18 Furosemide [Lasix] 80 mg PO BID 08/05/18 Levothyroxine [Synthroid -] 100 mcg PO DAILY 08/05/18 Metolazone [Zaroxolyn -] 2.5 mg PO DAILY 08/05/18 Metoprolol Tartrate [Lopressor -] 25 mg PO BID 08/05/18 Potassium Chloride 20 meq PO 5XD 08/05/18 ASSESSMENT/PLAN: An 87 y.o. M w/ PMHx. of A. Fib( On Pradaxa), HTN, CVA(2010), HLD, CHFrEF, Hypothyroidism and Hx. of GI Bleed a few years ago presents to the ED with expressive aphasia, "not feeling himself", and GI bleed. -Suspected Ischemic Stroke- resolving CT Head: shows chronic infarcts in left external capsule, no definite acute intracranial pathology. Per Dr. 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 CT Head shows no interval change from 1st CT head. not a candidate for A/C or tPA as Pt. has ongoing GI bleed, recent PPM surgery ( 3 weeks ago) and has stroke like symptoms while on Pradaxa. f/u MRI: Pacemaker is MRI conditional, however given the [facility] policy, Pt. is unable to get MRI. Spoke with two attending radiologists who have confirmed this policy. -Anemia 2/2 GI bleed superimposed on chronic anemia HgB s/p 3 units pRBCs: 8.9 transfusion threshold is 8.0 Endoscopy negative for localizing bleeding source, Enterscopy tentative for Monday Pt. takes Ferosol at home Hx. of GI bleed in past last colonospcopy unremarkable per . consult for Dr. Murphy appreciated, can do colonoscopy if enteroscopy unrevealing and if bleeding persists. CTA can also be done if able to time acute bleeding with imaging. D/c- protonix drip as EGD was unrevealing c/w Protonix 40mg IVP Initial INR on admission was 5.1-->1.35 today Pt. having bloody BMs since hospital admission, volume of bloody BM is starting to trend down. -A.fib Hold anticoagulation in setting of GI bleed Echo shows: EF-55-60%, RV,LA and RA severely dilated, mild MVP, severe TR, pulm. artery pressure of 46mmHg Telemetry monitoring c/w home dose metoprolol; s/p digoxin loading and 2 maintenance doses to good effect. [facility] medical records appreciated, Dr. Stewart is the varnisher that placed the PPM. -HTN-stable resume home BP medications at home doses as BP has been trending up -CHFrEF-stable Echo 08/26 appreciated as noted above monitor volume status- a little volume overloaded today hold Lasix will reassess tomorrow -F/E/N D/c-ed IVF with mindfulness of CHF replete potassium as needed, chronically hypokalemic Diet advanced to puree, nectar thick per Speech and Swallow; NPO after midnight for enterescopy -DVT Ppx. SCDs hold AC in setting of GI bleed until enterescopy is complete Visit type - Emergency Visit Emergency Visit: Yes ED Registration Date: 08/27/18 Care time: The patient presented to the Emergency Department on the above date and was hospitalized for further evaluation of their emergent condition. - New Patient This patient is new to me today: No - Critical Care Critical Care patient: No - Discharge Referral Referred to [facility] Med P.C.: No
--- NOTE | 2018-09-02 12:36 | PN ---
Teaching Attending Note Name of Resident: Keaton Pinzon ATTENDING PHYSICIAN STATEMENT I saw and evaluated the patient. I reviewed the resident's note and discussed the case with the resident. I agree with the resident's findings and plan as documented. SUBJECTIVE: Patient is comfortable with no acute distress, no BM today. OBJECTIVE: Vital Signs Temperature 97.5 F L 09/02/18 06:00 Pulse Rate 93 H 09/02/18 06:00 Respiratory Rate 20 09/02/18 06:00 Blood Pressure 108/67 09/02/18 06:00 O2 Sat by Pulse Oximetry (%) 96 09/01/18 21:00 GENERAL: The patient is awake, alert, and fully oriented, in no acute distress. HEAD: Normal with no signs of trauma. EYES: PERRL, extraocular movements intact, sclera anicteric, conjunctiva clear. ENT: Ears normal, moist mucous membranes. NECK: supple, no JVD , LUNGS: Decreased breath sounds, no wheezes, no crackles, no accessory muscle use. HEART: Regular rate and rhythm, S1, S2 positive , no murmur, rub or gallop. ABDOMEN: Soft, NT, ND, normoactive bowel sounds, no guarding, no rebound, no masses. EXTREMITIES: pulses are positive 2+, warm, well-perfused. edema trace. NEUROLOGICAL: Cranial nerves II through XII grossly intact. Normal speech, gait not observed. PSYCH: Normal mood, normal affect. SKIN: Warm, dry, no rash noted. CBCD WBC 4.5 K/mm3 (4.0-10.0) 09/02/18 06:25 RBC 2.67 M/mm3 (4.00-5.60) L 09/02/18 06:25 Hgb 8.9 GM/dL (11.7-16.9) L 09/02/18 06:25 Hct 24.5 % (35.4-49) L 09/02/18 06:25 MCV 91.8 fl (80-96) 09/02/18 06:25 MCHC 36.3 g/dl (32.0-35.9) H 09/02/18 06:25 RDW 20.9 % (11.9-15.9) H 09/02/18 06:25 Plt Count 172 K/MM3 (134-434) 09/02/18 06:25 MPV 8.0 fl (7.5-11.1) 09/02/18 06:25 CMP Sodium 143 mmol/L (136-145) 09/01/18 19:55 Potassium 3.5 mmol/L (3.5-5.1) 09/01/18 19:55 Chloride 108 mmol/L (98-107) H 09/01/18 19:55 Carbon Dioxide 24 mmol/L (21-32) 09/01/18 19:55 Anion Gap 10 MMOL/L (8-16) 09/01/18 19:55 BUN 20 mg/dL (7-18) H 09/01/18 19:55 Creatinine 1.1 mg/dL (0.55-1.3) 09/01/18 19:55 Creat Clearance w eGFR > 60 (>60) 09/01/18 19:55 Random Glucose 102 mg/dL (74-106) 09/01/18 19:55 Calcium 7.6 mg/dL (8.5-10.1) L 09/01/18 19:55 Total Bilirubin 1.3 mg/dL (0.2-1) H 09/01/18 19:55 AST 44 U/L (15-37) H 09/01/18 19:55 ALT 23 U/L (13-61) 09/01/18 19:55 Alkaline Phosphatase 109 U/L (45-117) 09/01/18 19:55 Total Protein 6.5 g/dl (6.4-8.2) 09/01/18 19:55 Albumin 2.8 g/dl (3.4-5.0) L 09/01/18 19:55 CARDIAC ENZYMES Creatine Kinase 101 IU/L (26-308) 08/27/18 11:40 Troponin I 0.22 ng/ml (0.00-0.05) H 08/31/18 19:40 Current Medications Generic Name Dose Route Start Last Admin Trade Name Freq PRN Reason Stop Dose Admin Furosemide 20 mg 09/02/18 14:00 Lasix - PO BID@0600,1400 [facility] Metoprolol Tartrate 5 mg 08/30/18 10:24 08/30/18 17:49 Lopressor Injection - IVPUSH 5 mg Q4H PRN Administration TACHYCARDIA Metoprolol Tartrate 25 mg 09/01/18 10:00 09/02/18 10:46 Lopressor - PO 25 mg BID [facility] Administration Pantoprazole Sodium 40 mg 08/30/18 13:30 09/02/18 10:46 Protonix Iv IVPUSH 40 mg DAILY [facility] Administration Home Medications Medication Instructions Recorded Ascorbic Acid [Vitamin C] 500 mg PO DAILY 08/05/18 Atorvastatin Ca [Lipitor] 10 mg PO ASDIR 08/05/18 Beta-Carotene(A) W-C and E/Min 1 tab PO DAILY 08/05/18 [Ocuvite (Nf)] Dabigatran Etexilate Mesylate 150 mg PO BID 08/05/18 [Pradaxa -] Famotidine [Pepcid] 40 mg PO ASDIR 08/05/18 Ferrous Sulfate [Feosol] 325 mg PO DAILY 08/05/18 Furosemide [Lasix] 80 mg PO BID 08/05/18 Levothyroxine [Synthroid -] 100 mcg PO DAILY 08/05/18 Metolazone [Zaroxolyn -] 2.5 mg PO DAILY 08/05/18 Metoprolol Tartrate [Lopressor -] 25 mg PO BID 08/05/18 Potassium Chloride 20 meq PO 5XD 08/05/18 ASSESSMENT AND PLAN: Patient is a 87y/o gentleman with h/o systolic and diastolic heart failure, HTN , A fib, 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 #Acute GI bleed with acute blood loss anemia will continue to monitor , H/H is stable today. As per GI enteroscopy for am.Continue IV protonix 40mg daily. s/ p PPI drip . might need abdominal/pelvis CTA in setting of bleed , will continue to hold AC and ASA, neuro checks , on ice chips only, On clears now, NPo after Midnight ,except ice and meds. # Acute CVA with aphasia : improved. # H/x A fib: on IV lopressor prn and po BB continue. Patient had a brief episodes of wide complex tachycardia . continue to hold AC, monitor on tele, keep electrolytes in nL range as had VTACH on tele. #H/x of systolic/ diastolic heart failure: continue to hold Diuretics but continue BB. #H/x of Idioventricular rate, s/p PPM . DVT Px: Scds
--- NOTE | 2018-09-02 13:22 | PN ---
Progress Note, CONTENT COORDINATOR - Note Progress Note: Consulted on for re-evaluation while pt was in ICU as he was coughing on thin liquids. Communicated with resident and suggested nectar thick liquid, and that I would attend. However, pt made NPO for Colonoscopy. Colonoscopy now scheduled for tm'w. Pt has been on clear liquids, reported to tolerate it since re-ordered without thickener. Pt reassessed at bedside, with present. Aphasia/lexpressive language deficits have spontaneously recovered. Pending MRI. Swallow is delayed with fair VOM/ROM of laryngeal swallow, without overt signs of aspiration with single careful sips OOB, head in neutral position. Pt hjas had an ongoing, occasional harsh cough for a while, with and without PO intake. They deny h/o PNA. Pt has been seen by Dr. Roach in the past. Selected Entries 09/01/18 09/01/18 09/01/18 01:49 05:00 09:50 Breakfast Lunch Supper Temperature 97.5 F L 98 F 98.3 F 09/01/18 09/01/18 09/01/18 09:51 13:22 16:40 Breakfast 100% Lunch 100% Supper Temperature 97.2 F L 97.6 F 09/01/18 09/01/18 09/02/18 22:00 22:47 02:00 Breakfast Lunch Supper 100% Temperature 97.7 F 97.6 F 09/02/18 09/02/18 06:00 10:00 Breakfast 100% Lunch Supper Temperature 97.5 F L Laboratory Tests 09/01/18 09/02/18 06:40 06:25 WBC 5.0 4.5 If cough noted with clears, downgrade to [place] thick, if approved by GI.
[2018-09-02] MEDS: FUROSEMIDE 20 MG TABLET (FP) PO SCH ×2 (15:30→16:51)
[2018-09-02] MEDS ORDERED: KCL PO ONE (17:07)
[2018-09-02] MEDS ORDERED: NACL PO ONE (17:07)
[2018-09-02] MEDS ORDERED: [UNRECOGNIZED DRUG - OTHER] PO ONE (17:07)
[2018-09-02] MEDS ORDERED: BISACODYL 5 MG TABLET.DR (FP) PO ONE (17:45)
[2018-09-02] MEDS ORDERED: PEG 3350/NA SULF BICARB CL/KCL 4000 ML SOLN.RECON PO ONE (19:00)
[2018-09-02 20:09] LABS: HEMOGLOBIN 9.2 GM/dL (11.7-16.9); RBC 2.78 M/mm3 (4.00-5.60); WHITE BLOOD COUNT 4.6 K/mm3 (4.0-10.0)
[2018-09-02 20:10] LABS: MCH 33.1 pg (25.7-33.7); MCHC 35.4 g/dl (32.0-35.9); MEAN CELL VOLUME 93.5 fl (80-96); MEAN PLT VOLUME 8.1 fl (7.5-11.1); PLATELET COUNT 179 K/MM3 (134-434)
[2018-09-03] MEDS: FUROSEMIDE 20 MG TABLET (FP) PO SCH ×2 (06:11→14:30)
[2018-09-03 06:41] LABS: HEMATOCRIT 24.8 % (35.4-49); HEMOGLOBIN 8.5 GM/dL (11.7-16.9); MCH 31.9 pg (25.7-33.7); MCHC 34.3 g/dl (32.0-35.9); MEAN PLT VOLUME 7.9 fl (7.5-11.1); PLATELET COUNT 150 K/MM3 (134-434); RBC 2.67 M/mm3 (4.00-5.60); RDW 20.6 % (11.9-15.9); WHITE BLOOD COUNT 4.2 K/mm3 (4.0-10.0)
[2018-09-03 07:20] LABS: ANION GAP 7 MMOL/L (8-16); BLOOD UREA NITROGEN 19 mg/dL (7-18); CALCIUM 7.8 mg/dL (8.5-10.1); CHLORIDE 105 mmol/L (98-107); CO2 28 mmol/L (21-32); CREATININE 0.9 mg/dL (0.55-1.3); GLUCOSE,RANDOM 91 mg/dL (74-106); MAGNESIUM 2.3 mg/dL (1.8-2.4); PHOSPHOROUS 2.7 mg/dL (2.5-4.9); POTASSIUM 3.8 mmol/L (3.5-5.1); SODIUM 140 mmol/L (136-145)
--- NOTE | 2018-09-03 09:12 | PN ---
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 he went to bed and woke up this am , with same difficulty finding words and felt very fatigue. he denies dysphagia, RYDER , visual abnormalities, weakness , or numbness, or tingling. he usually ambulate with a walker but his gait has become unsteady. he takes pradaxa for A fib, and never missed a dose ( last one yesterday). He had a stroke in 2010 while on coumadin and ws switchex he noticed BRBPR x 3 days now. wihth no abd pain, unable to quantify , but it is a lot. he continued to take pradaxa of note , patient had GI bleed 2 years ago, and was treated at [facility] . Had colonoscopy 2-3 years ago and a biopsy was taken. - Current Medication List Current Medications: Active Medications Furosemide (Lasix -) 20 mg PO BID@0600,1400 [facility] Last Admin: 09/03/18 06:11 Dose: 20 mg Metoprolol Tartrate (Lopressor Injection -) 5 mg IVPUSH Q4H PRN PRN Reason: TACHYCARDIA Last Admin: 08/30/18 17:49 Dose: 5 mg Metoprolol Tartrate (Lopressor -) 25 mg PO BID [facility] Last Admin: 09/02/18 21:30 Dose: 25 mg Multivitamins/Minerals (Theragran-M) 1 each PO DAILY [facility] Pantoprazole Sodium (Protonix Iv) 40 mg IVPUSH DAILY [facility] Last Admin: 09/02/18 10:46 Dose: 40 mg - Objective Vital Signs: Vital Signs Temperature 97.3 F L 09/03/18 06:09 Pulse Rate 100 H 09/03/18 06:09 Respiratory Rate 18 09/03/18 06:09 Blood Pressure 123/62 09/03/18 06:09 O2 Sat by Pulse Oximetry (%) 95 09/02/18 21:00 Eyes: Yes: WNL, Conjunctiva Clear, EOM Intact HENT: Yes: WNL, Atraumatic, Normocephalic Neck: Yes: WNL, Supple, Trachea Midline Cardiovascular: Yes: WNL, Regular Rate and Rhythm Respiratory: Yes: WNL, Regular, CTA Bilaterally Gastrointestinal: Yes: WNL, Normal Bowel Sounds Genitourinary: Yes: WNL Musculoskeletal: Yes: WNL Extremities: Yes: WNL Edema: No Integumentary: Yes: WNL Neurological: Yes: WNL, Alert, Oriented ...Motor Strength: WNL Psychiatric: Yes: WNL Labs: CBC, BMP 09/03/18 06:00 09/03/18 06:00 INR, PTT INR 1.35 (0.83-1.09) H 08/31/18 05:30 Problem List - Problems (1) Altered mental status Code(s): R41.82 - ALTERED MENTAL STATUS, UNSPECIFIED Qualifiers: Altered mental status type: transient alteration of awareness Qualified Code(s): R40.4 - Transient alteration of awareness (2) CVA (cerebral vascular accident) Code(s): I63.9 - CEREBRAL INFARCTION, UNSPECIFIED Qualifiers: CVA mechanism: occlusion Precerebral and cerebral artery: posterior cerebral artery Laterality of affected vessel: left Qualified Code(s): I63.532 - Cerebral infarction due to unspecified occlusion or stenosis of left posterior cerebral artery (3) Acute exacerbation of CHF (congestive heart failure) Code(s): I50.9 - HEART FAILURE, UNSPECIFIED (4) Anemia Code(s): D64.9 - ANEMIA, UNSPECIFIED Qualifiers: (5) Atrial fibrillation Code(s): I48.91 - UNSPECIFIED ATRIAL FIBRILLATION (6) Atrial fibrillation with rapid ventricular response Code(s): I48.91 - UNSPECIFIED ATRIAL FIBRILLATION (7) Benign prostate hyperplasia Code(s): N40.0 - BENIGN PROSTATIC HYPERPLASIA WITHOUT LOWER URINRY TRACT SYMP (8) Bradycardia Code(s): R00.1 - BRADYCARDIA, UNSPECIFIED (9) Bradycardia Code(s): R00.1 - BRADYCARDIA, UNSPECIFIED (10) Bradycardia with 31-40 beats per minute Code(s): R00.1 - BRADYCARDIA, UNSPECIFIED (11) Cellulitis Code(s): L03.90 - CELLULITIS, UNSPECIFIED Qualifiers: (12) Congestive heart failure (CHF) Code(s): I50.9 - HEART FAILURE, UNSPECIFIED (13) DVT prophylaxis Code(s): DJI9000 - (14) H/O: CVA (cerebrovascular accident) Code(s): Z86.73 - PRSNL HX OF TIA (TIA), AND CEREB INFRC W/O RESID DEFICITS (15) Head injury Code(s): S09.90XA - UNSPECIFIED INJURY OF HEAD, INITIAL ENCOUNTER (16) Hyperlipidemia Code(s): E78.5 - HYPERLIPIDEMIA, UNSPECIFIED (17) Hypothyroidism Code(s): E03.9 - HYPOTHYROIDISM, UNSPECIFIED Qualifiers: Hypothyroidism type: unspecified Qualified Code(s): E03.9 - Hypothyroidism , unspecified (18) Idioventricular rhythm Code(s): I44.2 - ATRIOVENTRICULAR BLOCK, COMPLETE (19) Macular degeneration of both eyes Code(s): H35.30 - UNSPECIFIED MACULAR DEGENERATION Qualifiers: Macular degeneration type: nonexudative age-related Nonexudative macular degeneration stage: intermediate dry stage Qualified Code(s): H35.3132 - Nonexudative age-related macular degeneration, bilateral, intermediate dry stage (20) Macular degeneration, age related Code(s): H35.30 - UNSPECIFIED MACULAR DEGENERATION (21) Near syncope Code(s): R55 - SYNCOPE AND COLLAPSE (22) Pleural effusion Code(s): J90 - PLEURAL EFFUSION, NOT ELSEWHERE CLASSIFIED (23) Pleural effusion Code(s): J90 - PLEURAL EFFUSION, NOT ELSEWHERE CLASSIFIED (24) Pneumonia Code(s): J18.9 - PNEUMONIA, UNSPECIFIED ORGANISM (25) RVF (right ventricular failure) Code(s): I50.9 - HEART FAILURE, UNSPECIFIED (26) Renal dysfunction Code(s): N28.9 - DISORDER OF KIDNEY AND URETER, UNSPECIFIED (27) Scrotal blister Code(s): S30.823A - BLISTER (NONTHERMAL) OF SCROTUM AND TESTES, INIT ENCNTR (28) Supratherapeutic INR Code(s): R79.1 - ABNORMAL COAGULATION PROFILE (29) Syncope Code(s): R55 - SYNCOPE AND COLLAPSE (30) Systolic CHF, chronic Code(s): I50.22 - CHRONIC SYSTOLIC (CONGESTIVE) HEART FAILURE (31) Weakness Code(s): R53.1 - WEAKNESS Assessment/Plan IMP: GI Bleed Acute Blood Loss Anemia Atrial Fibrillation with RVR s/p PPM LV Systolic/Diastolic Dysfunction Acute CVA REC: 1. Heart rate much improved with Lopressor, continue 2. Hold AC in setting GI bleed. Restart AC as soon as cleared by GI/surgery/ neurology. discussed high risks of CVA with patient and patients . 3. Continued w/u as per GI, Surgery and Neuro. 4. Tele monitoring: IV PPI, serial CBCs Consider keeping HCT close to 30% with PRBC transfusions. 5. CHF-cont Lasix
[2018-09-03] MEDS ORDERED: PT OWN MED DRAWER 7, Y5N ONE (10:31)
[2018-09-03] MEDS: MULTIVITAMINS THER W-MINERALS COMBO TABLET (FP) PO SCH (10:35)
[2018-09-03] MEDS: PANTOPRAZOLE SODIUM 40 MG VIAL IVPUSH SCH (10:35)
[2018-09-03] MEDS: METOPROLOL TARTRATE 25 MG TABLET (FP) PO SCH ×2 (10:36→22:17)
--- NOTE | 2018-09-03 15:31 | PN ---
Physical Exam: SUBJECTIVE: Patient seen and examined. Pt. took Golytely Prep. Pt. had some dark coffe-ground colored stool overnight and 1 episode of BRBPR. Pt. denies any additional or new complaints at this time and states he is better than before but not quite himself at baseline. OBJECTIVE: Vital Signs Period Temp Pulse Resp BP Sys/Servin Pulse Ox Last 24 Hr 97.3 F-98.1 F 77-104 18-18 100-123/51-82 95-95 GENERAL: The patient is awake, alert, and fully oriented, in mild respiratory distress. HEAD: Normal with no signs of trauma. EYES: Sclera anicteric, conjunctiva clear. No ptosis. ENT: Ears normal, nares patent, oropharynx clear without exudates, distended right neck vein, JVD+ b/l, dry mucous membranes. LUNGS: Fine crackles bibasilarly, diffuse wheezing, no accessory muscle use. HEART: Tachycardic irregular rate and rhythm, S1, S2 without murmur ABDOMEN: Soft, nontender, nondistended, normoactive bowel sounds, no guarding, no rebound, tympanic to percussion EXTREMITIES: 2+ dorsal pedal pulses, no calf tenderness, well-perfused, RLE: 2+ edema, cool to touch and moderate erythema; LLE: 1+ edema, cool to touch and mild erythema; both LE same as before. NEUROLOGICAL: Normal speech, gait not observed. 5/5 muscle strength in 3/4 extremities (4/5 in RLE-baseline) PSYCH: Normal mood, normal affect. SKIN: Warm, dry, normal turgor, no rashes or lesions noted Laboratory Results - last 24 hr 09/02/18 09/03/18 09/03/18 18:50 06:00 06:00 WBC 4.6 4.2 RBC 2.78 L 2.67 L Hgb 9.2 L 8.5 L Hct 26.0 L 24.8 L MCV 93.5 93.0 MCH 33.1 31.9 MCHC 35.4 34.3 RDW 21.0 H 20.6 H Plt Count 179 150 MPV 8.1 7.9 Sodium 140 Potassium 3.8 Chloride 105 Carbon Dioxide 28 Anion Gap 7 L BUN 19 H Creatinine 0.9 Creat Clearance w eGFR > 60 Random Glucose 91 Calcium 7.8 L Phosphorus 2.7 Magnesium 2.3 Active Medications Current Medications Furosemide (Lasix -) 20 mg PO BID@0600,1400 [facility] Last Admin: 09/03/18 14:30 Dose: 20 mg Metoprolol Tartrate (Lopressor Injection -) 5 mg IVPUSH Q4H PRN PRN Reason: TACHYCARDIA Last Admin: 08/30/18 17:49 Dose: 5 mg Metoprolol Tartrate (Lopressor -) 25 mg PO BID [facility] Last Admin: 09/03/18 10:36 Dose: 25 mg Multivitamins/Minerals (Theragran-M) 1 each PO DAILY [facility] Last Admin: 09/03/18 10:35 Dose: 1 each Pantoprazole Sodium (Protonix Iv) 40 mg IVPUSH DAILY [facility] Last Admin: 09/03/18 10:35 Dose: 40 mg Home Medications Medication Instructions Recorded Ascorbic Acid [Vitamin C] 500 mg PO DAILY 08/05/18 Atorvastatin Ca [Lipitor] 10 mg PO ASDIR 08/05/18 Beta-Carotene(A) W-C and E/Min 1 tab PO DAILY 08/05/18 [Ocuvite (Nf)] Dabigatran Etexilate Mesylate 150 mg PO BID 08/05/18 [Pradaxa -] Famotidine [Pepcid] 40 mg PO ASDIR 08/05/18 Ferrous Sulfate [Feosol] 325 mg PO DAILY 08/05/18 Furosemide [Lasix] 80 mg PO BID 08/05/18 Levothyroxine [Synthroid -] 100 mcg PO DAILY 08/05/18 Metolazone [Zaroxolyn -] 2.5 mg PO DAILY 08/05/18 Metoprolol Tartrate [Lopressor -] 25 mg PO BID 08/05/18 Potassium Chloride 20 meq PO 5XD 08/05/18 ASSESSMENT/PLAN: An 87 y.o. M w/ PMHx. of A. Fib( On Pradaxa), HTN, CVA(2010), HLD, CHFrEF, Hypothyroidism and Hx. of GI Bleed a few years ago presents to the ED with expressive aphasia, "not feeling himself", and GI bleed. -Suspected Ischemic Stroke- resolving CT Head: shows chronic infarcts in left external capsule, no definite acute intracranial pathology. Per Dr. Bueno(consult appreciated) suspicion for left FUSE CUP EXPANDER occipital stroke Rpt. CT Head shows no interval change from 1st CT head. not a candidate for A/C or tPA as Pt. has ongoing GI bleed, recent PPM surgery ( 3 weeks ago) and has stroke like symptoms while on Pradaxa. f/u MRI: Pacemaker is MRI conditional, however given the [facility] policy, Pt. is unable to get MRI. Spoke with two attending radiologists who have confirmed this policy. -Anemia 2/2 GI bleed superimposed on chronic anemia HgB s/p 3 units pRBCs: 8.9 transfusion threshold is 8.0- c/w serial CBCs, try to keep Hct above 30%. Endoscopy negative for localizing bleeding source; f/u Enterscopy/colonoscopy Pt. takes Ferosol at home Hx. of GI bleed in past last colonospcopy unremarkable per . consult for Dr. Murphy appreciated, can do colonoscopy if enteroscopy unrevealing and if bleeding persists. CTA can also be done if able to time acute bleeding with imaging. D/c- protonix drip as EGD was unrevealing c/w Protonix 40mg IVP Initial INR on admission was 5.1-->1.35 today Pt. having bloody BMs since hospital admission, volume of bloody BM is starting to trend down. -A.fib Hold anticoagulation in setting of GI bleed Echo shows: EF-55-60%, RV,LA and RA severely dilated, mild MVP, severe TR, pulm. artery pressure of 46mmHg Telemetry monitoring c/w home dose metoprolol; s/p digoxin loading and 2 maintenance doses to good effect. [facility] medical records appreciated, Dr. Stewart is the data processing equipment repairer that placed the PPM. -HTN-stable resume home BP medications at home doses as BP has been trending up -CHFrEF-stable Echo 08/26 appreciated as noted above monitor volume status- a little volume overloaded today hold Lasix will reassess tomorrow -F/E/N D/c-ed IVF with mindfulness of CHF replete potassium as needed, chronically hypokalemic Diet advanced to puree, nectar thick per Speech and Swallow; NPO after midnight for enterescopy -DVT Ppx. SCDs hold AC in setting of GI bleed until enterescopy is complete Visit type - Emergency Visit Emergency Visit: Yes ED Registration Date: 08/27/18 Care time: The patient presented to the Emergency Department on the above date and was hospitalized for further evaluation of their emergent condition. - New Patient This patient is new to me today: No - Critical Care Critical Care patient: No - Discharge Referral Referred to [facility] No
--- NOTE | 2018-09-03 17:34 | PN ---
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 He also has h/o volvulus/twisted intestines, requiring partial colon resection and colostomy with subsequent reversal. GI is following, and had done EGD initially without identifying bleeding source, but with old blood seen coming from duodenum. His H/H has been 8s-9s after blood transfusions initially. Was prepped yesterday for rescoping, and had reportedly some blood in BMs still. Pt was seen briefly, sitting up in chair, with family present. He denies abdominal pain, N/V. He had most of Golytely prep last night, had some bowel movement(s) earlier but does not know color or quality. He is supposed to go for repeat scope with enteroscopy and colonoscopy today. Has been NPO since midnight, had been tolerating a liquid diet/modified per S/S. - Current Medication List Current Medications: Active Medications Furosemide (Lasix -) 20 mg PO BID@0600,1400 [facility] Last Admin: 09/03/18 14:30 Dose: 20 mg Metoprolol Tartrate (Lopressor Injection -) 5 mg IVPUSH Q4H PRN PRN Reason: TACHYCARDIA Last Admin: 08/30/18 17:49 Dose: 5 mg Metoprolol Tartrate (Lopressor -) 25 mg PO BID [facility] Last Admin: 09/03/18 10:36 Dose: 25 mg Multivitamins/Minerals (Theragran-M) 1 each PO DAILY [facility] Last Admin: 09/03/18 10:35 Dose: 1 each Pantoprazole Sodium (Protonix Iv) 40 mg IVPUSH DAILY [facility] Last Admin: 09/03/18 10:35 Dose: 40 mg - Objective Vital Signs: Vital Signs Temperature 97.8 F 09/03/18 16:51 Pulse Rate 81 09/03/18 17:25 Respiratory Rate 18 09/03/18 17:25 Blood Pressure 118/58 L 09/03/18 17:25 O2 Sat by Pulse Oximetry (%) 95 09/03/18 17:25 Constitutional: Yes: No Distress, Calm, Thin Eyes: Yes: Conjunctiva Clear, EOM Intact HENT: Yes: Atraumatic, Normocephalic Respiratory: Yes: Regular, On Nasal O2. No: Wheezes (no overt audible wheezing) Gastrointestinal: Yes: Soft, Distention (with some tympany upper). No: Tenderness, Tenderness, Epigastrium ...Rectal Exam: Yes: Deferred Musculoskeletal: No: Joint Stiffness, Joint Swelling Extremities: No: Cool, Cyanosis Integumentary: No: Jaundice, Rash Neurological: Yes: Alert, Oriented (seems appropriate to current situation) Labs: CBC, BMP 09/03/18 06:00 09/03/18 06:00 INR, PTT INR 1.35 (0.83-1.09) H 08/31/18 05:30 Problem List - Problems (1) Gastrointestinal hemorrhage with melena Assessment/Plan: GI following had upper endoscopy was tolerating thickened liquids enteroscopy and colonoscopy planned today Pradaxa and antiplatelet therapy on hold pt off floor for same when I returned this evening will f/u results of scopes watch electrolytes/replete prn trend labs, serial H/H could consider CTA/bleeding scan if active bleeding evident (with IV hydration) cardiology and neurology also following would need optimization by both prior to any OR consideration would need bleeding localized with no other options for control to consider surgery high risk surgical candidate given comorbidities, age, previous abdominal surgery operative intervention would be last resort - briefly discussed with pt/family, but would discuss risks/benefits in more detail if it appears surgery could be required will follow peripherally - please call if needed urgently Code(s): K92.1 - MELENA (2) Anemia associated with acute blood loss Assessment/Plan: transfuse as indicated H/H stable for now Code(s): D62 - ACUTE POSTHEMORRHAGIC ANEMIA (3) Persistent atrial fibrillation Assessment/Plan: Pradaxa/antiplatelets on hold rate managed with beta lauren Code(s): I48.1 - PERSISTENT ATRIAL FIBRILLATION (4) CVA (cerebral vascular accident) Assessment/Plan: neurology suspects left BONE DRIER/occipital stroke despite neg CT findings may be able to have MRI, but reportedly not until 09/18/18? may not be able to have it here per chart notes Code(s): I63.9 - CEREBRAL INFARCTION, UNSPECIFIED Qualifiers: CVA mechanism: occlusion Precerebral and cerebral artery: posterior cerebral artery Laterality of affected vessel: left Qualified Code(s): I63.532 - Cerebral infarction due to unspecified occlusion or stenosis of left posterior cerebral artery (5) Altered mental status Assessment/Plan: improved Code(s): R41.82 - ALTERED MENTAL STATUS, UNSPECIFIED Qualifiers: Altered mental status type: transient alteration of awareness Qualified Code(s): R40.4 - Transient alteration of awareness (6) Biventricular CHF (congestive heart failure) Assessment/Plan: not decompensated Code(s): I50.82 - BIVENTRICULAR HEART FAILURE (7) Systolic CHF, chronic Code(s): I50.22 - CHRONIC SYSTOLIC (CONGESTIVE) HEART FAILURE (8) Hypothyroidism Code(s): E03.9 - HYPOTHYROIDISM, UNSPECIFIED Qualifiers: Hypothyroidism type: unspecified Qualified Code(s): E03.9 - Hypothyroidism , unspecified (9) Macular degeneration, age related Code(s): H35.30 - UNSPECIFIED MACULAR DEGENERATION
--- NOTE | 2018-09-03 17:38 | PN ---
Progress Note (short form) - Note Progress Note: Enteroscopy and colonoscopy reports placed in physical chart and to be scanned into [employer]. No bleeding source identified. Problem List - Problems (1) GI bleed Code(s): K92.2 - GASTROINTESTINAL HEMORRHAGE, UNSPECIFIED
--- NOTE | 2018-09-03 18:44 | PN ---
Teaching Attending Note Name of Resident: Keaton Pinzon ATTENDING PHYSICIAN STATEMENT I saw and evaluated the patient. I reviewed the resident's note and discussed the case with the resident. I agree with the resident's findings and plan as documented. SUBJECTIVE: Patient is comfortable, no further bleed. s/p egd and colonoscopy. OBJECTIVE: Vital Signs Temperature 98 F 09/03/18 18:00 Pulse Rate 101 H 09/03/18 18:00 Respiratory Rate 19 09/03/18 18:00 Blood Pressure 131/68 09/03/18 18:00 O2 Sat by Pulse Oximetry (%) 98 09/03/18 17:26 GENERAL: The patient is awake, alert, and fully oriented, in no acute distress. HEAD: Normal with no signs of trauma. EYES: PERRL, extraocular movements intact, sclera anicteric, conjunctiva clear. ENT: Ears normal, moist mucous membranes. NECK: supple, no JVD , LUNGS: Decreased breath sounds, no wheezes, no crackles, no accessory muscle use. HEART: Regular rate and rhythm, S1, S2 positive , no murmur, rub or gallop. ABDOMEN: Soft, NT, ND, normoactive bowel sounds, no guarding, no rebound, no masses. EXTREMITIES: pulses are positive 2+, warm, well-perfused. edema trace. NEUROLOGICAL: Cranial nerves II through XII grossly intact. Normal speech, gait not observed. PSYCH: Normal mood, normal affect. SKIN: Warm, dry, no rash noted. CBCD WBC 4.2 K/mm3 (4.0-10.0) 09/03/18 06:00 RBC 2.67 M/mm3 (4.00-5.60) L 09/03/18 06:00 Hgb 8.5 GM/dL (11.7-16.9) L 09/03/18 06:00 Hct 24.8 % (35.4-49) L 09/03/18 06:00 MCV 93.0 fl (80-96) 09/03/18 06:00 MCHC 34.3 g/dl (32.0-35.9) 09/03/18 06:00 RDW 20.6 % (11.9-15.9) H 09/03/18 06:00 Plt Count 150 K/MM3 (134-434) 09/03/18 06:00 MPV 7.9 fl (7.5-11.1) 09/03/18 06:00 CMP Sodium 140 mmol/L (136-145) 09/03/18 06:00 Potassium 3.8 mmol/L (3.5-5.1) 09/03/18 06:00 Chloride 105 mmol/L (98-107) 09/03/18 06:00 Carbon Dioxide 28 mmol/L (21-32) 09/03/18 06:00 Anion Gap 7 MMOL/L (8-16) L 09/03/18 06:00 BUN 19 mg/dL (7-18) H 09/03/18 06:00 Creatinine 0.9 mg/dL (0.55-1.3) 09/03/18 06:00 Creat Clearance w eGFR > 60 (>60) 09/03/18 06:00 Random Glucose 91 mg/dL (74-106) 09/03/18 06:00 Calcium 7.8 mg/dL (8.5-10.1) L 09/03/18 06:00 Total Bilirubin 1.3 mg/dL (0.2-1) H 09/01/18 19:55 AST 44 U/L (15-37) H 09/01/18 19:55 ALT 23 U/L (13-61) 09/01/18 19:55 Alkaline Phosphatase 109 U/L (45-117) 09/01/18 19:55 Total Protein 6.5 g/dl (6.4-8.2) 09/01/18 19:55 Albumin 2.8 g/dl (3.4-5.0) L 09/01/18 19:55 CARDIAC ENZYMES Creatine Kinase 101 IU/L (26-308) 08/27/18 11:40 Troponin I 0.22 ng/ml (0.00-0.05) H 08/31/18 19:40 Current Medications Generic Name Dose Route Start Last Admin Trade Name Freq PRN Reason Stop Dose Admin Furosemide 20 mg 09/02/18 14:00 09/03/18 14:30 Lasix - PO 20 mg BID@0600,1400 NEIL Administration Metoprolol Tartrate 5 mg 08/30/18 10:24 08/30/18 17:49 Lopressor Injection - IVPUSH 5 mg Q4H PRN Administration TACHYCARDIA Metoprolol Tartrate 25 mg 09/01/18 10:00 09/03/18 10:36 Lopressor - PO 25 mg BID NEIL Administration Multivitamins/Minerals 1 each 09/03/18 10:00 09/03/18 10:35 Theragran-M PO 1 each DAILY NEIL Administration Pantoprazole Sodium 40 mg 08/30/18 13:30 09/03/18 10:35 Protonix Iv IVPUSH 40 mg DAILY NEIL Administration Home Medications Medication Instructions Recorded Ascorbic Acid [Vitamin C] 500 mg PO DAILY 08/05/18 Atorvastatin Ca [Lipitor] 10 mg PO ASDIR 08/05/18 Beta-Carotene(A) W-C and E/Min 1 tab PO DAILY 08/05/18 [Ocuvite (Nf)] Dabigatran Etexilate Mesylate 150 mg PO BID 08/05/18 [Pradaxa -] Famotidine [Pepcid] 40 mg PO ASDIR 08/05/18 Ferrous Sulfate [Feosol] 325 mg PO DAILY 08/05/18 Furosemide [Lasix] 80 mg PO BID 08/05/18 Levothyroxine [Synthroid -] 100 mcg PO DAILY 08/05/18 Metolazone [Zaroxolyn -] 2.5 mg PO DAILY 08/05/18 Metoprolol Tartrate [Lopressor -] 25 mg PO BID 08/05/18 Potassium Chloride 20 meq PO 5XD 08/05/18 ASSESSMENT AND PLAN: Patient is a 87y/o gentleman with h/o systolic and diastolic heart failure, HTN , A fib, 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 #Acute GI bleed with acute blood loss anemia , s/p egd and colonoscopy. waiting for the official report. # Acute CVA with aphasia : improved. # H/x A fib: on IV lopressor prn and po BB continue. Patient had a brief episodes of wide complex tachycardia . continue to hold AC, monitor on tele, keep electrolytes in nL range as had VTACH on tele. #H/x of systolic/ diastolic heart failure: continue BB , but Diuretics are on hold. #H/x of Idioventricular rate, s/p PPM . DVT Px: Scds
[2018-09-03 19:19] LABS: HEMATOCRIT 24.9 % (35.4-49); MCH 33.6 pg (25.7-33.7); MCHC 36.4 g/dl (32.0-35.9); MEAN CELL VOLUME 92.4 fl (80-96); MEAN PLT VOLUME 8.2 fl (7.5-11.1); PLATELET COUNT 187 K/MM3 (134-434); RBC 2.69 M/mm3 (4.00-5.60); RDW 20.4 % (11.9-15.9); WHITE BLOOD COUNT 3.8 K/mm3 (4.0-10.0)
[2018-09-04] MEDS: FUROSEMIDE 20 MG TABLET (FP) PO SCH ×2 (05:58→14:39)
[2018-09-04 07:08] LABS: HEMATOCRIT 23.2 % (35.4-49); MCHC 34.4 g/dl (32.0-35.9); MEAN CELL VOLUME 93.1 fl (80-96); MEAN PLT VOLUME 7.8 fl (7.5-11.1); PLATELET COUNT 152 K/MM3 (134-434); RBC 2.49 M/mm3 (4.00-5.60); RDW 20.6 % (11.9-15.9); WHITE BLOOD COUNT 3.4 K/mm3 (4.0-10.0)
[2018-09-04] MEDS ORDERED: FUROSEMIDE 40 MG/4 ML INJECTABLE VIAL IVPUSH ONE (07:43)
[2018-09-04 07:50] LABS: ANION GAP 7 MMOL/L (8-16); BLOOD UREA NITROGEN 19 mg/dL (7-18); CALCIUM 7.7 mg/dL (8.5-10.1); CHLORIDE 104 mmol/L (98-107); CO2 29 mmol/L (21-32); CREATININE 1.1 mg/dL (0.55-1.3); GLUCOSE,RANDOM 92 mg/dL (74-106); PHOSPHOROUS 2.7 mg/dL (2.5-4.9); SODIUM 139 mmol/L (136-145)
[2018-09-04] MEDS ORDERED: POTASSIUM CHLORIDE TABS 20 MEQ TABLET.ER (FP) PO ONE (08:36)
--- NOTE | 2018-09-04 08:47 | PN ---
Teaching Attending Note Name of Resident: Keaton Pinzon ATTENDING PHYSICIAN STATEMENT I saw and evaluated the patient. I reviewed the resident's note and discussed the case with the resident. I agree with the resident's findings and plan as documented. SUBJECTIVE: Patient is comfortable with no further bleed. No shortness of breath, no nausea or vomiting. OBJECTIVE: Vital Signs Temperature 97.9 F 09/04/18 05:00 Pulse Rate 103 H 09/04/18 05:00 Respiratory Rate 20 09/04/18 05:00 Blood Pressure 107/62 09/04/18 05:00 O2 Sat by Pulse Oximetry (%) 98 09/03/18 21:00 GENERAL: The patient is awake, alert, and fully oriented, in no acute distress. HEAD: Normal with no signs of trauma. EYES: PERRL, extraocular movements intact, sclera anicteric, conjunctiva clear. ENT: Ears normal, moist mucous membranes. NECK: supple, no JVD , LUNGS: Decreased breath sounds, no wheezes, no crackles, no accessory muscle use. HEART: Regular rate and rhythm, S1, S2 positive , no murmur, rub or gallop. ABDOMEN: Soft, NT, ND, normoactive bowel sounds, no guarding, no rebound, no masses. EXTREMITIES: pulses are positive 2+, warm, well-perfused. edema trace. NEUROLOGICAL: Cranial nerves II through XII grossly intact. Normal speech, gait not observed. PSYCH: Normal mood, normal affect. SKIN: Warm, dry, no rash noted. CBCD WBC 3.4 K/mm3 (4.0-10.0) L 09/04/18 06:00 RBC 2.49 M/mm3 (4.00-5.60) L 09/04/18 06:00 Hgb 8.0 GM/dL (11.7-16.9) L 09/04/18 06:00 Hct 23.2 % (35.4-49) L 09/04/18 06:00 MCV 93.1 fl (80-96) 09/04/18 06:00 MCHC 34.4 g/dl (32.0-35.9) 09/04/18 06:00 RDW 20.6 % (11.9-15.9) H 09/04/18 06:00 Plt Count 152 K/MM3 (134-434) 09/04/18 06:00 MPV 7.8 fl (7.5-11.1) 09/04/18 06:00 CMP Sodium 139 mmol/L (136-145) 09/04/18 06:00 Potassium 3.0 mmol/L (3.5-5.1) L 09/04/18 06:00 Chloride 104 mmol/L (98-107) 09/04/18 06:00 Carbon Dioxide 29 mmol/L (21-32) 09/04/18 06:00 Anion Gap 7 MMOL/L (8-16) L 09/04/18 06:00 BUN 19 mg/dL (7-18) H 09/04/18 06:00 Creatinine 1.1 mg/dL (0.55-1.3) 09/04/18 06:00 Creat Clearance w eGFR > 60 (>60) 09/04/18 06:00 Random Glucose 92 mg/dL (74-106) 09/04/18 06:00 Calcium 7.7 mg/dL (8.5-10.1) L 09/04/18 06:00 Total Bilirubin 1.3 mg/dL (0.2-1) H 09/01/18 19:55 AST 44 U/L (15-37) H 09/01/18 19:55 ALT 23 U/L (13-61) 09/01/18 19:55 Alkaline Phosphatase 109 U/L (45-117) 09/01/18 19:55 Total Protein 6.5 g/dl (6.4-8.2) 09/01/18 19:55 Albumin 2.8 g/dl (3.4-5.0) L 09/01/18 19:55 CARDIAC ENZYMES Creatine Kinase 101 IU/L (26-308) 08/27/18 11:40 Troponin I 0.22 ng/ml (0.00-0.05) H 08/31/18 19:40 Current Medications Generic Name Dose Route Start Last Admin Trade Name Freq PRN Reason Stop Dose Admin Furosemide 20 mg 09/02/18 14:00 09/04/18 05:58 Lasix - PO 20 mg BID@0600,1400 [facility] Administration Levothyroxine Sodium 100 mcg 09/04/18 10:00 Synthroid - PO DAILY@0700 [facility] Metolazone 2.5 mg 09/04/18 13:30 Zaroxolyn - PO DAILY@1330 [facility] Metoprolol Tartrate 5 mg 08/30/18 10:24 08/30/18 17:49 Lopressor Injection - IVPUSH 5 mg Q4H PRN Administration TACHYCARDIA Metoprolol Tartrate 25 mg 09/01/18 10:00 09/03/18 22:17 Lopressor - PO 25 mg BID NEIL Administration Multivitamins/Minerals 1 each 09/03/18 10:00 09/03/18 10:35 Theragran-M PO 1 each DAILY [facility] Administration Pantoprazole Sodium 40 mg 08/30/18 13:30 09/03/18 10:35 Protonix Iv IVPUSH 40 mg DAILY NEIL Administration Ranitidine HCl 300 mg 09/04/18 22:00 Zantac - PO HS [facility] Home Medications Medication Instructions Recorded Ascorbic Acid [Vitamin C] 500 mg PO DAILY 08/05/18 Atorvastatin Ca [Lipitor] 10 mg PO ASDIR 08/05/18 Beta-Carotene(A) W-C and E/Min 1 tab PO DAILY 08/05/18 [Ocuvite (Nf)] Dabigatran Etexilate Mesylate 150 mg PO BID 08/05/18 [Pradaxa -] Famotidine [Pepcid] 40 mg PO ASDIR 08/05/18 Ferrous Sulfate [Feosol] 325 mg PO DAILY 08/05/18 Furosemide [Lasix] 80 mg PO BID 08/05/18 Levothyroxine [Synthroid -] 100 mcg PO DAILY 08/05/18 Metolazone [Zaroxolyn -] 2.5 mg PO DAILY 08/05/18 Metoprolol Tartrate [Lopressor -] 25 mg PO BID 08/05/18 RX: Potassium Chloride 20 meq PO 5XD 08/05/18 ASSESSMENT AND PLAN: Patient is a 87y/o gentleman with h/o systolic and diastolic heart failure, HTN , A fib, 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 #Acute GI bleed with acute blood loss anemia , s/p egd and colonoscopy. as per GI: patient should avoid NSAIDs, If rebleeds then need CTA of abdomen/ as an outpatient capsule endoscopy. Follow with Dr.Barry Nam, will try to make an appointment for the patient since patient is on Plavix and Aspirin before restarting the Pradaxa, if ok with cardio and Neuro . As per GI since this is the second episode of bleed within the last 2 years,patient has to be careful with anticoagulation. # Acute CVA with aphasia : improved. On Lipitor and aspirin and Pradaxa is on hold due to GI bleed. # H/x A fib: on IV lopressor prn and po BB continue and Lipitor continue . Patient had a brief episodes of wide complex tachycardia . continue to hold AC , due to having GI bleed , will discuss with neuro and Cardio . continue to monitor on tele, keep electrolytes in nL range as had VTACH on tele. #H/x of systolic/ diastolic heart failure: continue BB , but Diuretics are on hold. #H/x of Idioventricular rate, s/p PPM . DVT Px: Scds
[2018-09-04] MEDS: PANTOPRAZOLE SODIUM 40 MG VIAL IVPUSH SCH (09:10)
[2018-09-04] MEDS: MULTIVITAMINS THER W-MINERALS COMBO TABLET (FP) PO SCH (09:11)
[2018-09-04] MEDS: METOPROLOL TARTRATE 25 MG TABLET (FP) PO SCH ×2 (09:12→22:19)
[2018-09-04] MEDS: LEVOTHYROXINE NA 100 MCG TABLET (FP) PO SCH (09:12)
--- NOTE | 2018-09-04 13:37 | PN ---
Progress Note, Physician History of Present Illness: Called by the resident to discuss the AC Patient is on Tele No neuro events Noted hali GI procedure note ?? Hemorrohids Still anemic 8- Off AC and ASA - Current Medication List Current Medications: Active Medications Atorvastatin Calcium (Lipitor -) 10 mg PO HS [facility] Furosemide (Lasix -) 20 mg PO BID@0600,1400 [facility] Last Admin: 09/04/18 05:58 Dose: 20 mg Levothyroxine Sodium (Synthroid -) 100 mcg PO DAILY@0700 [facility] Last Admin: 09/04/18 09:12 Dose: 100 mcg Metolazone (Zaroxolyn -) 2.5 mg PO DAILY@1330 [facility] Metoprolol Tartrate (Lopressor Injection -) 5 mg IVPUSH Q4H PRN PRN Reason: TACHYCARDIA Last Admin: 08/30/18 17:49 Dose: 5 mg Metoprolol Tartrate (Lopressor -) 25 mg PO BID [facility] Last Admin: 09/04/18 09:12 Dose: 25 mg Multivitamins/Minerals (Theragran-M) 1 each PO DAILY [facility] Last Admin: 09/04/18 09:11 Dose: 1 each Pantoprazole Sodium (Protonix Iv) 40 mg IVPUSH DAILY [facility] Last Admin: 09/04/18 09:10 Dose: 40 mg Ranitidine HCl (Zantac -) 300 mg PO [facility] - Objective Vital Signs: Vital Signs Temperature 98.6 F 09/04/18 09:00 Pulse Rate 96 H 09/04/18 09:00 Respiratory Rate 18 09/04/18 09:00 Blood Pressure 105/62 09/04/18 09:00 O2 Sat by Pulse Oximetry (%) 98 09/04/18 09:00 Constitutional: Yes: Calm Labs: CBC, BMP 09/04/18 06:00 09/04/18 06:00 INR, PTT INR 1.35 (0.83-1.09) H 08/31/18 05:30 Problem List - Problems (1) CVA (cerebral vascular accident) Assessment/Plan: Need to start AC Still anemic Neuro ok to resume AC suggest pradexa low dose and careful monitor of CBC and mental status Suggest SNF Code(s): I63.9 - CEREBRAL INFARCTION, UNSPECIFIED Qualifiers: CVA mechanism: occlusion Precerebral and cerebral artery: posterior cerebral artery Laterality of affected vessel: left Qualified Code(s): I63.532 - Cerebral infarction due to unspecified occlusion or stenosis of left posterior cerebral artery
[2018-09-04] MEDS: METOLAZONE 2.5 MG TABLET (FP) PO SCH (13:57)
--- NOTE | 2018-09-04 14:07 | PN ---
Physical Exam: SUBJECTIVE: Patient seen and examined. No acute events. Pt. is very happy to eat. Pt. does pass gas. OBJECTIVE: Vital Signs Period Temp Pulse Resp BP Sys/Servin Pulse Ox Last 24 Hr 97.1 F-98.6 F 71-112 16-20 101-131/46-69 95-98 GENERAL: The patient is awake, alert, and fully oriented, in mild respiratory distress. EYES: Sclera anicteric, conjunctiva clear. No ptosis. ENT: Ears normal, nares patent, oropharynx clear without exudates, moist mucous membranes. NECK: Trachea midline, full range of motion, supple, JVD+. LUNGS: Diffuse prominent wheezing in all quadrants, no crackles, trace accessory muscle use. HEART: Irregular rate and rhythm, S1, S2 without murmur ABDOMEN: Soft, nontender, distended, normoactive bowel sounds, no guarding, no rebound EXTREMITIES: 1+ left radial pulse, warm, well-perfused, no calf tenderness, increased edema from yesterday 3+ on right, 2+ on left. NEUROLOGICAL: Normal speech, gait not assessed PSYCH: Normal mood, normal affect. SKIN: Warm, dry, normal turgor Laboratory Results - last 24 hr 09/03/18 09/04/18 09/04/18 18:00 06:00 06:00 WBC 3.8 L 3.4 L RBC 2.69 L 2.49 L Hgb 9.0 L 8.0 L Hct 24.9 L 23.2 L MCV 92.4 93.1 MCH 33.6 32.0 MCHC 36.4 H 34.4 RDW 20.4 H 20.6 H Plt Count 187 D 152 MPV 8.2 7.8 Sodium 139 Potassium 3.0 L Chloride 104 Carbon Dioxide 29 Anion Gap 7 L BUN 19 H Creatinine 1.1 Creat Clearance w eGFR > 60 POC Glucometer Random Glucose 92 Calcium 7.7 L Phosphorus 2.7 Magnesium 2.0 09/04/18 06:00 WBC RBC Hgb Hct MCV MCH MCHC RDW Plt Count MPV Sodium Potassium Chloride Carbon Dioxide Anion Gap BUN Creatinine Creat Clearance w eGFR POC Glucometer 107 Random Glucose Calcium Phosphorus Magnesium Active Medications Current Medications Atorvastatin Calcium (Lipitor -) 10 mg PO HS [facility] Furosemide (Lasix -) 20 mg PO BID@0600,1400 [facility] Last Admin: 09/04/18 05:58 Dose: 20 mg Levothyroxine Sodium (Synthroid -) 100 mcg PO DAILY@0700 [facility] Last Admin: 09/04/18 09:12 Dose: 100 mcg Metolazone (Zaroxolyn -) 2.5 mg PO DAILY@1330 [facility] Last Admin: 09/04/18 13:57 Dose: 2.5 mg Metoprolol Tartrate (Lopressor Injection -) 5 mg IVPUSH Q4H PRN PRN Reason: TACHYCARDIA Last Admin: 08/30/18 17:49 Dose: 5 mg Metoprolol Tartrate (Lopressor -) 25 mg PO BID [facility] Last Admin: 09/04/18 09:12 Dose: 25 mg Multivitamins/Minerals (Theragran-M) 1 each PO DAILY [facility] Last Admin: 09/04/18 09:11 Dose: 1 each Pantoprazole Sodium (Protonix Iv) 40 mg IVPUSH DAILY [facility] Last Admin: 09/04/18 09:10 Dose: 40 mg Ranitidine HCl (Zantac -) 300 mg PO HS [facility] Home Medications Medication Instructions Recorded Ascorbic Acid [Vitamin C] 500 mg PO DAILY 08/05/18 Atorvastatin Ca [Lipitor] 10 mg PO ASDIR 08/05/18 Beta-Carotene(A) W-C and E/Min 1 tab PO DAILY 08/05/18 [Ocuvite (Nf)] Dabigatran Etexilate Mesylate 150 mg PO BID 08/05/18 [Pradaxa -] Famotidine [Pepcid] 40 mg PO ASDIR 08/05/18 Ferrous Sulfate [Feosol] 325 mg PO DAILY 08/05/18 Furosemide [Lasix] 80 mg PO BID 08/05/18 Levothyroxine [Synthroid -] 100 mcg PO DAILY 08/05/18 Metolazone [Zaroxolyn -] 2.5 mg PO DAILY 08/05/18 Metoprolol Tartrate [Lopressor -] 25 mg PO BID 08/05/18 Potassium Chloride 20 meq PO 5XD 08/05/18 ASSESSMENT/PLAN: An 87 y.o. M w/ PMHx. of A. Fib( On Pradaxa), HTN, CVA(2010), HLD, CHFrEF, Hypothyroidism and Hx. of GI Bleed a few years ago presents to the ED with expressive aphasia, "not feeling himself", and GI bleed. -Suspected Ischemic Stroke- resolving CT Head: shows chronic infarcts in left external capsule, no definite acute intracranial pathology. Per Dr. Bueno(consult appreciated) suspicion for left COIL TESTER occipital stroke Rpt. CT Head shows no interval change from 1st CT head. not a candidate for A/C or tPA as Pt. has ongoing GI bleed, recent PPM surgery ( 3 weeks ago) and has stroke like symptoms while on Pradaxa. f/u MRI: Pacemaker is MRI conditional, however given the [facility] policy, Pt. is unable to get MRI. Spoke with two attending radiologists who have confirmed this policy. Pt. also has a newly placed PPM that will not be matured until 08/26 and therefore cannot get MRI until that date. -Anemia 2/2 GI bleed superimposed on chronic anemia HgB s/p 3 units pRBCs: 8.0 transfusion threshold is 8.0- c/w serial CBCs, try to keep Hct above 30%. Endoscopy negative for localizing bleeding source Internal Hemorrhoids present on colonoscopy Pt. takes Ferosol at home Hx. of GI bleed in past last colonospcopy unremarkable per . consult for Dr. Murphy appreciated; CTA can also be done if able to time acute bleeding with imaging. D/c- protonix drip as EGD was unrevealing c/w Protonix 40mg IVP Initial INR on admission was 5.1-->1.35 today Pt. having bloody BMs since hospital admission, volume of bloody BM is starting to trend down. -A.fib Hold anticoagulation in setting of GI bleed- still in discussion with specialists about when to restart AC and what AC to restart in light of the fact Pt. has had CVA and GI bleed on Coumadin and Pradaxa. Echo shows: EF-55-60%, RV,LA and RA severely dilated, mild MVP, severe TR, pulm. artery pressure of 46mmHg Telemetry monitoring c/w home dose metoprolol; s/p digoxin loading and 2 maintenance doses to good effect. 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 -HTN-stable resume home BP medications at home doses as BP has been trending up -CHFrEF-stable Echo 08/26 appreciated as noted above monitor volume status- volume overloaded today restarted Lasix, given an extra dose today restarted [employer] -F/E/N D/c-ed IVF with mindfulness of CHF replete potassium as needed, chronically hypokalemic Na+ controlled Diet -DVT Ppx. SCDs hold AC in setting of GI bleed until enterescopy is complete Visit type - Emergency Visit Emergency Visit: Yes ED Registration Date: 08/27/18 Care time: The patient presented to the Emergency Department on the above date and was hospitalized for further evaluation of their emergent condition. - New Patient This patient is new to me today: No - Critical Care Critical Care patient: No - Discharge Referral Referred to [facility] Med P.C.: No
[2018-09-04 14:17] VITALS: BMI 25.7
--- NOTE | 2018-09-04 16:29 | PN ---
Progress Note, Physician Chief Complaint: Pt OOB in chair; feels better (no chest pain, dizziness, palpitations, or dyspnea).Pt's is visiting. History of Present Illness: 87y white man hx of afib (on pradaxa, s/p PPM placed approx 2 weeksago), htn, hl, chf, cva, hypothyroidism presents for altered mental status. Per family the patient wasn't himself this weekend, on Monday he was doing some paperwork and got very frustrated doing a task that usually does not give many trouble. On Monday the patient states he wasn't feeling well although he could not specifically verbalize what is bothering him. The patient's was feeling worse today and the family noticed that his speech was not as fluid as it usually is brought the patient to the ER for evaluation. She denies any headache, chest pain, palpitations, lightheadedness, vision changes, abdominal pain, nausea, vomiting, increased leg swelling. - Current Medication List Current Medications: Active Medications Atorvastatin Calcium (Lipitor -) 10 mg PO [facility] Furosemide (Lasix -) 20 mg PO BID@0600,1400 [facility] Last Admin: 09/04/18 14:39 Dose: 20 mg Levothyroxine Sodium (Synthroid -) 100 mcg PO DAILY@0700 [facility] Last Admin: 09/04/18 09:12 Dose: 100 mcg Metolazone (Zaroxolyn -) 2.5 mg PO DAILY@1330 [facility] Last Admin: 09/04/18 13:57 Dose: 2.5 mg Metoprolol Tartrate (Lopressor Injection -) 5 mg IVPUSH Q4H PRN PRN Reason: TACHYCARDIA Last Admin: 08/30/18 17:49 Dose: 5 mg Metoprolol Tartrate (Lopressor -) 25 mg PO BID [facility] Last Admin: 09/04/18 09:12 Dose: 25 mg Multivitamins/Minerals (Theragran-M) 1 each PO DAILY [facility] Last Admin: 09/04/18 09:11 Dose: 1 each Pantoprazole Sodium (Protonix Iv) 40 mg IVPUSH DAILY [facility] Last Admin: 09/04/18 09:10 Dose: 40 mg Ranitidine HCl (Zantac -) 300 mg PO [facility] - Objective Vital Signs: Vital Signs Temperature 97.9 F 09/04/18 13:00 Pulse Rate 81 09/04/18 13:00 Respiratory Rate 20 09/04/18 13:00 Blood Pressure 96/54 L 09/04/18 13:00 O2 Sat by Pulse Oximetry (%) 98 09/04/18 09:00 Constitutional: Yes: Calm Eyes: Yes: WNL HENT: Yes: WNL Neck: Yes: WNL Cardiovascular: Yes: Pulse Irregular, S1 (varies in intensity) Respiratory: Yes: Regular Gastrointestinal: Yes: Soft ...Rectal Exam: Yes: Deferred Genitourinary: No: Anuria Musculoskeletal: Yes: Muscle Weakness Extremities: Yes: Cool Edema: Yes Edema: LLE: 2+, RLE: 2+ Peripheral Pulses WNL: Yes Integumentary: Yes: WNL Neurological: Yes: Alert, Oriented, Weakness Labs: CBC, BMP 09/04/18 06:00 09/04/18 06:00 INR, PTT INR 1.35 (0.83-1.09) H 08/31/18 05:30 Abnormal Lab Results 09/03/18 09/04/18 09/04/18 18:00 06:00 06:00 WBC 3.8 L 3.4 L RBC 2.69 L 2.49 L Hgb 9.0 L 8.0 L Hct 24.9 L 23.2 L MCHC 36.4 H RDW 20.4 H 20.6 H Potassium 3.0 L Anion Gap 7 L BUN 19 H Calcium 7.7 L - ....Imaging Chest X-ray: Image Reviewed Other: Image Reviewed (telemetry: AF; periods of paced rhythm) Problem List - Problems (1) Acute on chronic diastolic (congestive) heart failure Code(s): I50.33 - ACUTE ON CHRONIC DIASTOLIC (CONGESTIVE) HEART FAILURE (2) Anemia associated with acute blood loss Assessment/Plan: Pt has been off Pradaxa for nearly a week. Recommend restarting anticcoagulation (Pradaxa or IV heparin) if cleared by GI and hematology. Code(s): D62 - ACUTE POSTHEMORRHAGIC ANEMIA (3) CVA (cerebral vascular accident) Assessment/Plan: hx CVA years ago while on warfarin. He has been on Pradaxa reportedly for at least 10 years.Workup in progress to ascertain whether pt suffered a CVA now while on Pradaxa (the clinical signs have returned to his baseline. Code(s): I63.9 - CEREBRAL INFARCTION, UNSPECIFIED Qualifiers: CVA mechanism: occlusion Precerebral and cerebral artery: posterior cerebral artery Laterality of affected vessel: left Qualified Code(s): I63.532 - Cerebral infarction due to unspecified occlusion or stenosis of left posterior cerebral artery (4) Atrial fibrillation Assessment/Plan: On metoprolol for HR control. Restart anticoagulant (Pradaxa or IV heparin) as soon as possible (if cleared by GI and hematology). Code(s): I48.91 - UNSPECIFIED ATRIAL FIBRILLATION (5) Hypokalemia Assessment/Plan: Replete, and keep 4-4.5 Keep Mg 2-2.4 PO4 2.5-4.9 Code(s): E87.6 - HYPOKALEMIA (6) History of permanent cardiac pacemaker placement Code(s): Z95.0 - PRESENCE OF CARDIAC PACEMAKER
[2018-09-04] MEDS ORDERED: HEPARIN NA (PORCINE) 5,000 UNITS/ML 1ML VIAL IVPUSH PRN ×2 (17:27)
[2018-09-04] MEDS ORDERED: HEPARIN - 25,000 UNIT in SODIUM CHLORIDE 495 ML IV SCH (17:30)
[2018-09-04 18:46] LABS: HEMATOCRIT 24.8 % (35.4-49); MCH 33.5 pg (25.7-33.7); MCHC 36.1 g/dl (32.0-35.9); MEAN CELL VOLUME 92.8 fl (80-96); MEAN PLT VOLUME 7.9 fl (7.5-11.1); PLATELET COUNT 189 K/MM3 (134-434); RBC 2.67 M/mm3 (4.00-5.60); RDW 20.9 % (11.9-15.9); WHITE BLOOD COUNT 4.3 K/mm3 (4.0-10.0)
--- NOTE | 2018-09-04 19:45 | PN ---
Progress Note (short form) - Note Progress Note: PROGRESS NOTE FOR HEMATOLOGY/ONCOLOGY Patient feels much better today and reports feeling better because he ate for the first time Offers no complaints Denies any fever, chills, nausea, vomiting, chest pain, palpitations, shortness of breath. Vital Signs Temperature 98.1 F 09/04/18 18:00 Pulse Rate 77 09/04/18 18:00 Respiratory Rate 18 09/04/18 18:00 Blood Pressure 113/49 L 09/04/18 18:00 O2 Sat by Pulse Oximetry (%) 98 09/04/18 09:00 PHYSICAL EXAMINATION: GENERAL: The patient is awake, alert, and fully oriented, in no acute distress EYES: Sclera anicteric, conjunctiva clear. No ptosis. ENT: Moist mucous membranes. NECK: Trachea midline, full range of motion, supple, JVD+. LUNGS: Wheezing throughout lung bases bilaterally HEART: Irregular rate and rhythm, Normal S1 and S2 without murmur ABDOMEN: Soft, nontender, distended, normoactive bowel sounds. (+) midline vertical surgical scar EXTREMITIES: 3+ pitting edema LE NEUROLOGICAL: Normal speech, gait not assessed CBC, BMP 09/04/18 17:30 09/04/18 06:00 ASSESSMENT/PLAN: Patient is an 87 year old male who presented for AMS, aphasia, and rectal bleed. Patient was found to have a CVA and Possible GI bleed. Asked to evaluate patient on risk vs benefit of EGD procedure with patient being on Pradaxa. Problem List: Anemia likely 2/2 to GI bleed with Chronic Anemia Left [employer]IDENT[employer]ANCE [employer] stroke Atrial Fibrillation HTN HLD CVA CHFrEF Hypothyroidism PLAN: -Anticoagulation must now be resumed for patient due to history of Atrial Fibrillation. However, patient failed with NOAC's and Warfarin, both causing him GI bleeds and recurrent strokes. Spoke to [employer], who also agreed for a trial of Heparin and monitor for any signs of bleeding. Will consider NOAC for patient as Lovenox is not ideal therapeutic modality for Atrial Fibrillation.
--- NOTE | 2018-09-04 20:47 | PN ---
Teaching Attending Note Name of Resident: Lela Solomon ATTENDING PHYSICIAN STATEMENT I saw and evaluated the patient. I reviewed the resident's note and discussed the case with the resident. I agree with the resident's findings and plan as documented. SUBJECTIVE: Patient seen and examined Discussed with Dr. Rondon and Dr. Murphy Will place on heparin x several days and monitor for bleeding. If no bleeding evaluation of small bowel with capsule endoscopy as out patient. Would consider re-trial of NOAC as it is possible the stroke present upon admission was precipitatied by GI bleeding and hypotension. OBJECTIVE: ASSESSMENT AND PLAN:
[2018-09-04] MEDS: RANITIDINE HCL 150 MG TABLET (FP) PO SCH (22:18)
[2018-09-04] MEDS: ATORVASTATIN CA 10 MG TABLET (FP) PO SCH (22:19)
[2018-09-05] MEDS ORDERED: ALBUTEROL SO4 2.5/IPRATROPIUM 0.5 INH SOL 3 ML VIAL.NEB. NEB ONE (01:12)
[2018-09-05] MEDS ORDERED: BENZOCAINE/MENTH/CETYLPYRD CL 1 EACH LOZENGE MM PRN (05:12)
[2018-09-05] MEDS: FUROSEMIDE 40 MG/4 ML INJECTABLE VIAL IVPUSH SCH ×2 (05:17→15:28)
[2018-09-05] MEDS: LEVOTHYROXINE NA 100 MCG TABLET (FP) PO SCH (06:09)
[2018-09-05 06:29] LABS: HEMATOCRIT 24.3 % (35.4-49); HEMOGLOBIN 8.2 GM/dL (11.7-16.9); MCH 31.6 pg (25.7-33.7); MCHC 33.9 g/dl (32.0-35.9); MEAN CELL VOLUME 93.2 fl (80-96); MEAN PLT VOLUME 7.9 fl (7.5-11.1); PLATELET COUNT 160 K/MM3 (134-434); RBC 2.61 M/mm3 (4.00-5.60); RDW 20.7 % (11.9-15.9)
[2018-09-05 08:35] LABS: ANION GAP 7 MMOL/L (8-16); BLOOD UREA NITROGEN 17 mg/dL (7-18); CALCIUM 7.7 mg/dL (8.5-10.1); CHLORIDE 102 mmol/L (98-107); CO2 29 mmol/L (21-32); GLUCOSE,RANDOM 108 mg/dL (74-106); MAGNESIUM 1.9 mg/dL (1.8-2.4); PHOSPHOROUS 2.8 mg/dL (2.5-4.9); SODIUM 138 mmol/L (136-145)
[2018-09-05] MEDS ORDERED: POTASSIUM CHLORIDE TABS 20 MEQ TABLET.ER (FP) PO ONE ×3 (09:21→23:28)
[2018-09-05] MEDS: PANTOPRAZOLE SODIUM 40 MG VIAL IVPUSH SCH (09:59)
[2018-09-05] MEDS: METOPROLOL TARTRATE 25 MG TABLET (FP) PO SCH ×2 (09:59→21:43)
[2018-09-05] MEDS: MULTIVITAMINS THER W-MINERALS COMBO TABLET (FP) PO SCH (10:00)
--- NOTE | 2018-09-05 10:34 | PN ---
Physical Exam: SUBJECTIVE: Patient seen and examined. Per nurse Pt. had pain in her RLE overnight but denied tenderness this morning, SOB, turns purple when having coughing fits. Duonebs were given overnight. Pt. wants to go to chair to sit up. OBJECTIVE: Vital Signs Period Temp Pulse Resp BP Sys/Servin Pulse Ox Last 24 Hr 97.3 F-98.1 F 77-101 18-24 96-113/42-70 98 GENERAL: The patient is awake, alert, and fully oriented, in mild respiratory distress. EYES: Sclera anicteric, conjunctiva clear. No ptosis. ENT: Ears normal, nares patent, oropharynx clear without exudates, moist mucous membranes. NECK: Trachea midline, full range of motion, supple, JVD+. LUNGS: Decreased breath sounds diffusely, no wheezing, no crackles, trace accessory muscle use. HEART: Irregular rate and rhythm, S1, S2 without murmur ABDOMEN: Soft, nontender, distended, normoactive bowel sounds, tympanic to percussion, no guarding, no rebound EXTREMITIES: 2+ left radial pulse, warm, well-perfused, no calf tenderness, increased edema from yesterday 3+ on right, 3+ on left, increased warmth of RLE and LLE with right being warmer. NEUROLOGICAL: Normal speech, gait not assessed PSYCH: Normal mood, normal affect. SKIN: Warm, dry, normal turgor Laboratory Results - last 24 hr 09/04/18 09/05/18 09/05/18 17:30 00:30 06:00 WBC 4.3 4.0 RBC 2.67 L 2.61 L Hgb 9.0 L 8.2 L Hct 24.8 L 24.3 L MCV 92.8 93.2 MCH 33.5 31.6 MCHC 36.1 H 33.9 RDW 20.9 H 20.7 H Plt Count 189 D 160 MPV 7.9 7.9 PTT (Actin FS) 65.7 H Sodium Potassium Chloride Carbon Dioxide Anion Gap BUN Creatinine Creat Clearance w eGFR Random Glucose Calcium Phosphorus Magnesium 09/05/18 06:00 WBC RBC Hgb Hct MCV MCH MCHC RDW Plt Count MPV PTT (Actin FS) Sodium 138 Potassium 2.9 L* Chloride 102 Carbon Dioxide 29 Anion Gap 7 L BUN 17 Creatinine 1.0 Creat Clearance w eGFR > 60 Random Glucose 108 H Calcium 7.7 L Phosphorus 2.8 Magnesium 1.9 Active Medications Current Medications Atorvastatin Calcium (Lipitor -) 10 mg PO HS [facility] Last Admin: 09/04/18 22:19 Dose: 10 mg Benzocaine/Menthol (Cepacol Lozenge -) 1 each MM PRN PRN PRN Reason: SORE THROAT Furosemide (Lasix Injection -) 20 mg IVPUSH BID@0600,1400 [facility] Last Admin: 09/05/18 05:17 Dose: 20 mg Heparin Sodium (Porcine) (Heparin -) 1,000 unit IVPUSH PRN PRN PRN Reason: Heparin Heparin Sodium (Porcine) (Heparin -) 5,000 unit IVPUSH PRN PRN PRN Reason: Heparin Heparin Sodium (Porcine) 25, (000 unit/ Sodium Chloride) 500 mls @ 20 mls/hr IV TITR [facility]; Protocol Last Titration: 09/05/18 02:06 Dose: 1,000 unit/hr, 20 mls/hr Levothyroxine Sodium (Synthroid -) 100 mcg PO DAILY@0700 [facility] Last Admin: 09/05/18 06:09 Dose: 100 mcg Metolazone (Zaroxolyn -) 2.5 mg PO DAILY@1330 [facility] Last Admin: 09/04/18 13:57 Dose: 2.5 mg Metoprolol Tartrate (Lopressor Injection -) 5 mg IVPUSH Q4H PRN PRN Reason: TACHYCARDIA Last Admin: 08/30/18 17:49 Dose: 5 mg Metoprolol Tartrate (Lopressor -) 25 mg PO BID [facility] Last Admin: 09/05/18 09:59 Dose: 25 mg Multivitamins/Minerals (Theragran-M) 1 each PO DAILY [facility] Last Admin: 09/05/18 10:00 Dose: 1 each Pantoprazole Sodium (Protonix Iv) 40 mg IVPUSH DAILY [facility] Last Admin: 09/05/18 09:59 Dose: 40 mg Ranitidine HCl (Zantac -) 300 mg PO HS [facility] Last Admin: 09/04/18 22:18 Dose: 300 mg Home Medications Medication Instructions Recorded Ascorbic Acid [Vitamin C] 500 mg PO DAILY 08/05/18 Atorvastatin Ca [Lipitor] 10 mg PO ASDIR 08/05/18 Beta-Carotene(A) W-C and E/Min 1 tab PO DAILY 08/05/18 [Ocuvite (Nf)] Dabigatran Etexilate Mesylate 150 mg PO BID 08/05/18 [Pradaxa -] Famotidine [Pepcid] 40 mg PO ASDIR 08/05/18 Ferrous Sulfate [Feosol] 325 mg PO DAILY 08/05/18 Furosemide [Lasix] 80 mg PO BID 08/05/18 Levothyroxine [Synthroid -] 100 mcg PO DAILY 08/05/18 Metolazone [Zaroxolyn -] 2.5 mg PO DAILY 08/05/18 Metoprolol Tartrate [Lopressor -] 25 mg PO BID 08/05/18 Potassium Chloride 20 meq PO 5XD 08/05/18 ASSESSMENT/PLAN: An 87 y.o. M w/ PMHx. of A. Fib( On Pradaxa), HTN, CVA(2010), HLD, CHFrEF, Hypothyroidism and Hx. of GI Bleed a few years ago presents to the ED with expressive aphasia, "not feeling himself", and GI bleed. -Suspected Ischemic Stroke- resolving CT Head: shows chronic infarcts in left external capsule, no definite acute intracranial pathology. Per Dr. 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 CT Head shows no interval change from 1st CT head. not a candidate for A/C or tPA as Pt. has ongoing GI bleed, recent PPM surgery ( 3 weeks ago) and has stroke like symptoms while on Pradaxa. f/u MRI: Pacemaker is MRI conditional, however given the [facility] policy, Pt. is unable to get MRI. Spoke with two attending radiologists who have confirmed this policy. Pt. also has a newly placed PPM that will not be matured until 08/26 and therefore cannot get MRI until that date. -Anemia 2/2 GI bleed superimposed on chronic anemia- stable HgB s/p 3 units pRBCs: 8.0 transfusion threshold is 8.0- c/w serial CBCs, try to keep Hct above 30%. Endoscopy negative for localizing bleeding source Internal Hemorrhoids present on colonoscopy Pt. takes Ferosol at home Hx. of GI bleed in past last colonospcopy unremarkable per . consult for Dr. Murphy appreciated; CTA can also be done if able to time acute bleeding with imaging. D/c- protonix drip as EGD was unrevealing c/w Protonix 40mg IVP Initial INR on admission was 5.1-->1.35 today Pt. having bloody BMs since hospital admission, volume of bloody BM is starting to trend down. -A.fib Hold anticoagulation in setting of GI bleed- still in discussion with specialists about when to restart AC and what AC to restart in light of the fact Pt. has had CVA and GI bleed on Coumadin and Pradaxa. Discussion with various specialists have resulted in three options: Coumadin (because of ease of reversibility however had CVA on coumadin and GI bleed), Pradaxa(because of ease of use and lesser CVA, however still had CVA and GI bleed, plus it has predisposition for increasing GI bleed, even though there is a reversal agent it is expensive and difficult to access) and Eliquis (ease of use and less likely to cause GI bleed,even though there is a reversal agent it is expensive and difficult to access). Echo shows: EF-55-60%, RV,LA and RA severely dilated, mild MVP, severe TR, pulm. artery pressure of 46mmHg Telemetry monitoring c/w home dose metoprolol; s/p digoxin loading and 2 maintenance doses to good effect. [facility] medical records appreciated, Dr. Stewart is the blanket weaver that placed the PPM. -HTN-stable resume home BP medications at home doses as BP has been trending up -CHFrEF-stable Echo 08/26 appreciated as noted above monitor volume status- volume overloaded today LE Duplex neg. for DVT increased Lasix to 40mg BID c/w [employer] -F/E/N D/c-ed IVF with mindfulness of CHF replete potassium as needed, chronically hypokalemic- given 80meq PO K+ today, f /u PM BMP and AM BMP. Na+ controlled Diet -DVT Ppx. SCDs Pt. started on Heparin drip, double concentrated to minimize fluid intake. Visit type - Emergency Visit Emergency Visit: Yes ED Registration Date: 08/27/18 Care time: The patient presented to the Emergency Department on the above date and was hospitalized for further evaluation of their emergent condition. - New Patient This patient is new to me today: No - Critical Care Critical Care patient: No - Discharge Referral Referred to [facility] Med P.C.: No
[2018-09-05] MEDS: HEPARIN - 25,000 UNIT in SODIUM CHLORIDE 245 ML IV SCH (11:30)
--- NOTE | 2018-09-05 12:17 | PN ---
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 he went to bed and woke up this am , with same difficulty finding words and felt very fatigue. he denies dysphagia, RYDER , visual abnormalities, weakness , or numbness, or tingling. he usually ambulate with a walker but his gait has become unsteady. he takes pradaxa for A fib, and never missed a dose ( last one yesterday). He had a stroke in 2010 while on coumadin and ws switchex he noticed BRBPR x 3 days now. wihth no abd pain, unable to quantify , but it is a lot. he continued to take pradaxa of note , patient had GI bleed 2 years ago, and was treated at [facility] . Had colonoscopy 2-3 years ago and a biopsy was taken. - Current Medication List Current Medications: Active Medications Atorvastatin Calcium (Lipitor -) 10 mg PO HS [facility] Last Admin: 09/04/18 22:19 Dose: 10 mg Benzocaine/Menthol (Cepacol Lozenge -) 1 each MM PRN PRN PRN Reason: SORE THROAT Furosemide (Lasix Injection -) 20 mg IVPUSH BID@0600,1400 [facility] Last Admin: 09/05/18 05:17 Dose: 20 mg Heparin Sodium (Porcine) (Heparin -) 1,000 unit IVPUSH PRN PRN PRN Reason: Heparin Heparin Sodium (Porcine) (Heparin -) 5,000 unit IVPUSH PRN PRN PRN Reason: Heparin Heparin Sodium (Porcine) 25, (000 unit/ Sodium Chloride) 250 mls @ 10 mls/hr IV TITR [facility]; Protocol Last Admin: 09/05/18 11:30 Dose: 1,000 unit/hr, 10 mls/hr Levothyroxine Sodium (Synthroid -) 100 mcg PO DAILY@0700 [facility] Last Admin: 09/05/18 06:09 Dose: 100 mcg Metolazone (Zaroxolyn -) 2.5 mg PO DAILY@1330 [facility] Last Admin: 09/04/18 13:57 Dose: 2.5 mg Metoprolol Tartrate (Lopressor Injection -) 5 mg IVPUSH Q4H PRN PRN Reason: TACHYCARDIA Last Admin: 08/30/18 17:49 Dose: 5 mg Metoprolol Tartrate (Lopressor -) 25 mg PO BID [facility] Last Admin: 09/05/18 09:59 Dose: 25 mg Multivitamins/Minerals (Theragran-M) 1 each PO DAILY [facility] Last Admin: 09/05/18 10:00 Dose: 1 each Pantoprazole Sodium (Protonix Iv) 40 mg IVPUSH DAILY [facility] Last Admin: 09/05/18 09:59 Dose: 40 mg Ranitidine HCl (Zantac -) 300 mg PO HS [facility] Last Admin: 09/04/18 22:18 Dose: 300 mg - Objective Vital Signs: Vital Signs Temperature 97.3 F L 09/05/18 08:47 Pulse Rate 82 09/05/18 08:47 Respiratory Rate 20 09/05/18 09:00 Blood Pressure 106/42 L 09/05/18 08:47 O2 Sat by Pulse Oximetry (%) 98 09/05/18 09:00 Eyes: Yes: WNL, Conjunctiva Clear, EOM Intact HENT: Yes: WNL, Atraumatic, Normocephalic Neck: Yes: WNL, Supple, Trachea Midline Cardiovascular: Yes: Pulse Irregular, S1, S2 Respiratory: Yes: WNL, Regular, CTA Bilaterally Gastrointestinal: Yes: WNL, Normal Bowel Sounds Genitourinary: Yes: WNL Musculoskeletal: Yes: WNL Extremities: Yes: WNL Edema: Yes Integumentary: Yes: WNL Neurological: Yes: WNL, Alert, Oriented ...Motor Strength: WNL Psychiatric: Yes: WNL Labs: CBC, BMP 09/05/18 06:00 09/05/18 06:00 INR, PTT INR 1.35 (0.83-1.09) H 08/31/18 05:30 Problem List - Problems (1) Altered mental status Code(s): R41.82 - ALTERED MENTAL STATUS, UNSPECIFIED Qualifiers: Altered mental status type: transient alteration of awareness Qualified Code(s): R40.4 - Transient alteration of awareness (2) CVA (cerebral vascular accident) Code(s): I63.9 - CEREBRAL INFARCTION, UNSPECIFIED Qualifiers: CVA mechanism: occlusion Precerebral and cerebral artery: posterior cerebral artery Laterality of affected vessel: left Qualified Code(s): I63.532 - Cerebral infarction due to unspecified occlusion or stenosis of left posterior cerebral artery (3) Acute exacerbation of CHF (congestive heart failure) Code(s): I50.9 - HEART FAILURE, UNSPECIFIED (4) Anemia Code(s): D64.9 - ANEMIA, UNSPECIFIED Qualifiers: (5) Atrial fibrillation Code(s): I48.91 - UNSPECIFIED ATRIAL FIBRILLATION (6) Atrial fibrillation with rapid ventricular response Code(s): I48.91 - UNSPECIFIED ATRIAL FIBRILLATION (7) Benign prostate hyperplasia Code(s): N40.0 - BENIGN PROSTATIC HYPERPLASIA WITHOUT LOWER URINRY TRACT SYMP (8) Bradycardia Code(s): R00.1 - BRADYCARDIA, UNSPECIFIED (9) Bradycardia Code(s): R00.1 - BRADYCARDIA, UNSPECIFIED (10) Bradycardia with 31-40 beats per minute Code(s): R00.1 - BRADYCARDIA, UNSPECIFIED (11) Cellulitis Code(s): L03.90 - CELLULITIS, UNSPECIFIED Qualifiers: (12) Congestive heart failure (CHF) Code(s): I50.9 - HEART FAILURE, UNSPECIFIED (13) DVT prophylaxis Code(s): [id number] - (14) H/O: CVA (cerebrovascular accident) Code(s): Z86.73 - PRSNL HX OF TIA (TIA), AND CEREB INFRC W/O RESID DEFICITS (15) Head injury Code(s): S09.90XA - UNSPECIFIED INJURY OF HEAD, INITIAL ENCOUNTER (16) Hyperlipidemia Code(s): E78.5 - HYPERLIPIDEMIA, UNSPECIFIED (17) Hypothyroidism Code(s): E03.9 - HYPOTHYROIDISM, UNSPECIFIED Qualifiers: Hypothyroidism type: unspecified Qualified Code(s): E03.9 - Hypothyroidism , unspecified (18) Idioventricular rhythm Code(s): I44.2 - ATRIOVENTRICULAR BLOCK, COMPLETE (19) Macular degeneration of both eyes Code(s): H35.30 - UNSPECIFIED MACULAR DEGENERATION Qualifiers: Macular degeneration type: nonexudative age-related Nonexudative macular degeneration stage: intermediate dry stage Qualified Code(s): H35.3132 - Nonexudative age-related macular degeneration, bilateral, intermediate dry stage (20) Macular degeneration, age related Code(s): H35.30 - UNSPECIFIED MACULAR DEGENERATION (21) Near syncope Code(s): R55 - SYNCOPE AND COLLAPSE (22) Pleural effusion Code(s): J90 - PLEURAL EFFUSION, NOT ELSEWHERE CLASSIFIED (23) Pleural effusion Code(s): J90 - PLEURAL EFFUSION, NOT ELSEWHERE CLASSIFIED (24) Pneumonia Code(s): J18.9 - PNEUMONIA, UNSPECIFIED ORGANISM (25) RVF (right ventricular failure) Code(s): I50.9 - HEART FAILURE, UNSPECIFIED (26) Renal dysfunction Code(s): N28.9 - DISORDER OF KIDNEY AND URETER, UNSPECIFIED (27) Scrotal blister Code(s): S30.823A - BLISTER (NONTHERMAL) OF SCROTUM AND TESTES, INIT ENCNTR (28) Supratherapeutic INR Code(s): R79.1 - ABNORMAL COAGULATION PROFILE (29) Syncope Code(s): R55 - SYNCOPE AND COLLAPSE (30) Systolic CHF, chronic Code(s): I50.22 - CHRONIC SYSTOLIC (CONGESTIVE) HEART FAILURE (31) Weakness Code(s): R53.1 - WEAKNESS Assessment/Plan - Problems (1) Acute on chronic diastolic (congestive) heart failure Code(s): I50.33 - ACUTE ON CHRONIC DIASTOLIC (CONGESTIVE) HEART FAILURE (2) Anemia associated with acute blood loss Assessment/Plan: Pt has been off Pradaxa for nearly a week. Recommend restarting anticcoagulation (Pradaxa or IV heparin) if cleared by GI and hematology. Code(s): D62 - ACUTE POSTHEMORRHAGIC ANEMIA (3) CVA (cerebral vascular accident) Assessment/Plan: hx CVA years ago while on warfarin. He has been on Pradaxa reportedly for at least 10 years.Workup in progress to ascertain whether pt suffered a CVA now while on Pradaxa (the clinical signs have returned to his baseline. Code(s): I63.9 - CEREBRAL INFARCTION, UNSPECIFIED Qualifiers: CVA mechanism: occlusion Precerebral and cerebral artery: posterior cerebral artery Laterality of affected vessel: left Qualified Code(s): I63.532 - Cerebral infarction due to unspecified occlusion or stenosis of left posterior cerebral artery (4) Atrial fibrillation Assessment/Plan: On metoprolol for HR control. Restart anticoagulant (Pradaxa or IV heparin) as soon as possible (if cleared by GI and hematology). Code(s): I48.91 - UNSPECIFIED ATRIAL FIBRILLATION (5) Hypokalemia Assessment/Plan: Replete, and keep 4-4.5 Keep Mg 2-2.4 PO4 2.5-4.9 Code(s): E87.6 - HYPOKALEMIA (6) History of permanent cardiac pacemaker placement Code(s): Z95.0 - PRESENCE OF CARDIAC PACEMAKER
[2018-09-05 13:24] LABS: POTASSIUM 2.9 mmol/L (3.5-5.1)
[2018-09-05] MEDS: METOLAZONE 2.5 MG TABLET (FP) PO SCH (13:57)
--- NOTE | 2018-09-05 18:05 | PN ---
Teaching Attending Note Name of Resident: Keaton Pinzon ATTENDING PHYSICIAN STATEMENT I saw and evaluated the patient. I reviewed the resident's note and discussed the case with the resident. I agree with the resident's findings and plan as documented. SUBJECTIVE: no fever or chills. NO BM after colonoscopy tyet. no pain , no RYDER , no weakness. feels his speech is back to NL OBJECTIVE: NAD, Awake,Nl speech . CV: RRR, 2/6 SM at apex with JVD. Lungs: b/l wheezes Ext: LE: hyperpigmentation ,3+ pitting edema Neuro: speech NL. EOMI, round equal pupils, reactive to light. tongue at mid line. nl facial sensation. strength 5/5 in upper and lower extremities proximally and distally. sensation to light touch NL. 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 stable HB - monitor closelyon heparin gtt - if no bleed then NOACs can be resumed , and capsule endoscopy can be done as out pt - will d/w card/heme eliquis or xarelto rather than pradaxa 3- H/o A fib: - cont BB - AC as above - monitor on tele 4- h/o R systolic/L diastolic heart failure:now seem to be in acute exacerbation as has b/l wheezes and worsening b/l LE edema - increase lasix to 40 BId for now - monitor I&Os - weight 5- h/o Idioventricular rate, s/p PPM . Cont to monitor closely on tele .
[2018-09-05] MEDS: ATORVASTATIN CA 10 MG TABLET (FP) PO SCH (21:39)
[2018-09-05] MEDS: RANITIDINE HCL 150 MG TABLET (FP) PO SCH (21:40)
[2018-09-06] MEDS: FUROSEMIDE 40 MG/4 ML INJECTABLE VIAL IVPUSH SCH ×2 (05:35→15:06)
[2018-09-06] MEDS: LEVOTHYROXINE NA 100 MCG TABLET (FP) PO SCH (06:23)
[2018-09-06 06:42] LABS: HEMATOCRIT 21.9 % (35.4-49); HEMOGLOBIN 7.8 GM/dL (11.7-16.9); MCH 32.9 pg (25.7-33.7); MCHC 35.6 g/dl (32.0-35.9); MEAN CELL VOLUME 92.4 fl (80-96); MEAN PLT VOLUME 7.9 fl (7.5-11.1); PLATELET COUNT 157 K/MM3 (134-434); RBC 2.38 M/mm3 (4.00-5.60); RDW 20.7 % (11.9-15.9); WHITE BLOOD COUNT 4.1 K/mm3 (4.0-10.0)
[2018-09-06 07:33] LABS: ANION GAP 10 MMOL/L (8-16); BLOOD UREA NITROGEN 19 mg/dL (7-18); CALCIUM 7.6 mg/dL (8.5-10.1); CHLORIDE 101 mmol/L (98-107); CO2 29 mmol/L (21-32); CREATININE 0.9 mg/dL (0.55-1.3); GLUCOSE,RANDOM 89 mg/dL (74-106); MAGNESIUM 1.8 mg/dL (1.8-2.4); PHOSPHOROUS 2.6 mg/dL (2.5-4.9); POTASSIUM 3.1 mmol/L (3.5-5.1); SODIUM 140 mmol/L (136-145)
[2018-09-06] MEDS ORDERED: POTASSIUM CHLORIDE TABS 20 MEQ TABLET.ER (FP) PO ONE (07:39)
[2018-09-06] MEDS ORDERED: NAPH,MB-DB/K PH,MBDB POWDER PACKET PO ONE (08:47)
--- NOTE | 2018-09-06 08:47 | PN ---
Teaching Attending Note Name of Resident: Keaton Pinzon ATTENDING PHYSICIAN STATEMENT I saw and evaluated the patient. I reviewed the resident's note and discussed the case with the resident. I agree with the resident's findings and plan as documented. SUBJECTIVE: no pain today, no SOB, no fever or chills . has a small BM with normal color. OBJECTIVE: NAD, Awake,Nl speech . CV: RRR, 2/6 SM at apex Lungs: clear lungs today Ext: LE: hyperpigmentation ,3+ pitting edema Neuro: speech NL. EOMI, round equal pupils, reactive to light. tongue at mid line. nl facial sensation. strength 5/5 in upper and lower extremities proximally and distally. sensation to light touch NL. reflexes : 2+ biceps and BR. 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 Hb dropped slightly, but no melena or hematochezia noted - monitor closely on heparin gtt - if no bleed then NOACs can be resumed , and capsule endoscopy can be done as out pt - will d/w card/heme eliquis or xarelto rather than pradaxa 3- H/o A fib: transient tachy last night , but now back to HR of 70s - cont BB - AC as above - monitor on tele. 4- Systolic and diastolic heart failure: now more edema than before - cont lasix at 40 BId for now - monitor I&Os - weight 5- h/o Idioventricular rate, s/p PPM . Cont to monitor closely on tele . OC
[2018-09-06] MEDS: HEPARIN - 25,000 UNIT in SODIUM CHLORIDE 245 ML IV SCH (10:30)
[2018-09-06] MEDS: MULTIVITAMINS THER W-MINERALS COMBO TABLET (FP) PO SCH (11:26)
[2018-09-06] MEDS: METOPROLOL TARTRATE 25 MG TABLET (FP) PO SCH ×2 (11:26→22:15)
[2018-09-06] MEDS: PANTOPRAZOLE SODIUM 40 MG VIAL IVPUSH SCH (11:26)
--- NOTE | 2018-09-06 11:38 | PN ---
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 He reported a cough of 2 years duration. I requested MBS orders, which were received but then cancelled as Medical staff felt he was not stable to go downstairs for MBS. Selected Entries 09/05/18 09/05/18 09/05/18 01:52 06:00 08:47 Supper Temperature 97.3 F L 98.1 F 97.3 F L 09/05/18 09/05/18 09/05/18 14:55 18:00 20:10 Supper 100% Temperature 97.6 F 98.7 F 09/05/18 09/06/18 09/06/18 22:00 02:00 06:00 Supper Temperature 97.7 F 97.8 F 97.2 F L 09/06/18 10:00 Supper Temperature 97.5 F L Laboratory Tests 09/06/18 06:00 WBC 4.1 MBS now planned for 09/[address] Rose. Consider [place] thick liquid for now, to reduce aspiration risk.
[2018-09-06 12:24] LABS: HEMATOCRIT 23.6 % (35.4-49); HEMOGLOBIN 8.2 GM/dL (11.7-16.9); MCH 32.6 pg (25.7-33.7); MCHC 34.9 g/dl (32.0-35.9); MEAN CELL VOLUME 93.4 fl (80-96); MEAN PLT VOLUME 7.8 fl (7.5-11.1); PLATELET COUNT 180 K/MM3 (134-434); RBC 2.52 M/mm3 (4.00-5.60); RDW 20.9 % (11.9-15.9); WHITE BLOOD COUNT 4.8 K/mm3 (4.0-10.0)
[2018-09-06] MEDS: METOLAZONE 2.5 MG TABLET (FP) PO SCH (14:23)
--- NOTE | 2018-09-06 16:29 | PN ---
Progress Note (short form) - Note Progress Note: PROGRESS NOTE FOR HEMATOLOGY/ONCOLOGY Patient seen and examined by me at bedside Offers no complaints Denies any fever, chills, nausea, vomiting, chest pain, palpitations, shortness of breath. Vital Signs Temperature 98.3 F 09/06/18 14:00 Pulse Rate 119 H 09/06/18 14:00 Respiratory Rate 18 09/06/18 14:00 Blood Pressure 108/62 09/06/18 14:00 O2 Sat by Pulse Oximetry (%) 98 09/06/18 09:00 PHYSICAL EXAMINATION: GENERAL: The patient is awake, alert, and fully oriented, in no acute distress EYES: Sclera anicteric, conjunctiva clear. No ptosis. ENT: Moist mucous membranes. LUNGS: Wheezing throughout lung bases bilaterally HEART: Tachycardic with irregularly irregular rhythm ABDOMEN: Soft, nontender, distended, normoactive bowel sounds. (+) midline vertical surgical scar EXTREMITIES: 3+ pitting edema LE NEUROLOGICAL: Normal speech, gait not assessed Laboratory Tests 09/06/18 12:00 09/06/18 06:00 09/06/18 09/06/18 06:00 06:00 PTT (Actin FS) 91.0 H Calcium 7.6 L Phosphorus 2.6 Magnesium 1.8 ASSESSMENT/PLAN: Patient is an 87 year old male who presented for AMS, aphasia, and rectal bleed. Patient was found to have a CVA and Possible GI bleed. Asked to evaluate patient on risk vs benefit of EGD procedure with patient being on Pradaxa. 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 No signs of overt bleeding. Will need to continue monitoring for any signs of bleeding -Will consider NOAC for patient on discharge if remains stable on heparin drip
--- NOTE | 2018-09-06 17:35 | PN ---
Physical Exam: SUBJECTIVE: Patient seen and examined. Discussed with Pt. some of the benefits and risks of anticoagulation. Pt. states that he would like his student life dean Dr. Knox to weigh in on the anticoagulation medication. Will call his home student life dean in AM of 09/07/18. OBJECTIVE: Vital Signs Period Temp Pulse Resp BP Sys/Servin Pulse Ox Last 24 Hr 97.2 F-98.7 F 82-119 18-18 100-117/50-68 98-98 GENERAL: The patient is awake, alert, and fully oriented, in mild respiratory distress. EYES: Sclera anicteric, conjunctiva clear. No ptosis. ENT: Ears normal, nares patent, moist mucous membranes. NECK: Trachea midline, full range of motion, supple, JVD+ (decreased from yesterday). LUNGS: Decreased breath sounds diffusely, diffuse wheezing but less than yesterday, no crackles, no accessory muscle use. HEART: Irregular rate and rhythm, S1, S2 without murmur ABDOMEN: Soft, nontender, distended, normoactive bowel sounds, tympanic to percussion, no guarding, no rebound EXTREMITIES: 2+ left radial pulse, warm, well-perfused, no calf tenderness, decreased edema from yesterday 3+ on right, 2+ on left, decreased warmth from yesterday of RLE and LLE with right being warmer. NEUROLOGICAL: Normal speech, gait not assessed PSYCH: Normal mood, normal affect. SKIN: Warm, dry, normal turgor Laboratory Results - last 24 hr 09/05/18 09/06/18 09/06/18 21:00 06:00 06:00 WBC 4.1 RBC 2.38 L Hgb 7.8 L Hct 21.9 L MCV 92.4 MCH 32.9 MCHC 35.6 RDW 20.7 H Plt Count 157 MPV 7.9 PTT (Actin FS) 91.0 H Sodium Potassium 3.1 L Chloride Carbon Dioxide Anion Gap BUN Creatinine Creat Clearance w eGFR Random Glucose Calcium Phosphorus Magnesium 09/06/18 09/06/18 06:00 12:00 WBC 4.8 RBC 2.52 L Hgb 8.2 L Hct 23.6 L MCV 93.4 MCH 32.6 MCHC 34.9 RDW 20.9 H Plt Count 180 MPV 7.8 PTT (Actin FS) Sodium 140 Potassium 3.1 L Chloride 101 Carbon Dioxide 29 Anion Gap 10 BUN 19 H Creatinine 0.9 Creat Clearance w eGFR > 60 Random Glucose 89 Calcium 7.6 L Phosphorus 2.6 Magnesium 1.8 Active Medications Current Medications Atorvastatin Calcium (Lipitor -) 10 mg PO HS [facility] Last Admin: 09/05/18 21:39 Dose: 10 mg Benzocaine/Menthol (Cepacol Lozenge -) 1 each MM PRN PRN PRN Reason: SORE THROAT Furosemide (Lasix Injection -) 40 mg IVPUSH BID@0600,1400 [facility] Last Admin: 09/06/18 15:06 Dose: 40 mg Heparin Sodium (Porcine) (Heparin -) 1,000 unit IVPUSH PRN PRN PRN Reason: Heparin Heparin Sodium (Porcine) (Heparin -) 5,000 unit IVPUSH PRN PRN PRN Reason: Heparin Heparin Sodium (Porcine) 25, (000 unit/ Sodium Chloride) 250 mls @ 10 mls/hr IV TITR [facility]; Protocol Last Admin: 09/06/18 10:30 Dose: 900 unit/hr, 9 mls/hr Levothyroxine Sodium (Synthroid -) 100 mcg PO DAILY@0700 [facility] Last Admin: 09/06/18 06:23 Dose: 100 mcg Metolazone (Zaroxolyn -) 2.5 mg PO DAILY@1330 [facility] Last Admin: 09/06/18 14:23 Dose: 2.5 mg Metoprolol Tartrate (Lopressor Injection -) 5 mg IVPUSH Q4H PRN PRN Reason: TACHYCARDIA Last Admin: 08/30/18 17:49 Dose: 5 mg Metoprolol Tartrate (Lopressor -) 25 mg PO BID [facility] Last Admin: 09/06/18 11:26 Dose: 25 mg Multivitamins/Minerals (Theragran-M) 1 each PO DAILY [facility] Last Admin: 09/06/18 11:26 Dose: 1 each Pantoprazole Sodium (Protonix Iv) 40 mg IVPUSH DAILY [facility] Last Admin: 09/06/18 11:26 Dose: 40 mg Ranitidine HCl (Zantac -) 300 mg PO HS [facility] Last Admin: 09/05/18 21:40 Dose: 300 mg Home Medications Medication Instructions Recorded Ascorbic Acid [Vitamin C] 500 mg PO DAILY 08/05/18 Atorvastatin Ca [Lipitor] 10 mg PO ASDIR 08/05/18 Beta-Carotene(A) W-C and E/Min 1 tab PO DAILY 08/05/18 [Ocuvite (Nf)] Dabigatran Etexilate Mesylate 150 mg PO BID 08/05/18 [Pradaxa -] Famotidine [Pepcid] 40 mg PO ASDIR 08/05/18 Ferrous Sulfate [Feosol] 325 mg PO DAILY 08/05/18 Furosemide [Lasix] 80 mg PO BID 08/05/18 Levothyroxine [Synthroid -] 100 mcg PO DAILY 08/05/18 Metolazone [Zaroxolyn -] 2.5 mg PO DAILY 08/05/18 Metoprolol Tartrate [Lopressor -] 25 mg PO BID 08/05/18 Potassium Chloride 20 meq PO 5XD 08/05/18 ASSESSMENT/PLAN: An 87 y.o. M w/ PMHx. of A. Fib( On Pradaxa), HTN, CVA(2010), HLD, CHFrEF, Hypothyroidism and Hx. of GI Bleed a few years ago presents to the ED with expressive aphasia, "not feeling himself", and GI bleed. -Suspected Ischemic Stroke- resolving CT Head: shows chronic infarcts in left external capsule, no definite acute intracranial pathology. Per Dr. Bueno(consult appreciated) suspicion for left [employer] occipital stroke Rpt. CT Head shows no interval change from 1st CT head. not a candidate for A/C or tPA as Pt. has ongoing GI bleed, recent PPM surgery ( 3 weeks ago) and has stroke like symptoms while on Pradaxa. f/u MRI: Pacemaker is MRI conditional, however given the [facility] policy, Pt. is unable to get MRI. Spoke with two attending radiologists who have confirmed this policy. Pt. also has a newly placed PPM that will not be matured until 08/26 and therefore cannot get MRI until that date. -Anemia 2/2 GI bleed superimposed on chronic anemia- stable HgB s/p 3 units pRBCs: 7.8 transfusion threshold is closer to 7.0- c/w serial CBCs, try to keep Hct above 30%. Endoscopy negative for localizing bleeding source Internal Hemorrhoids present on colonoscopy Pt. will have outpatient Capsule enterscopy on discharge. Pt. takes Ferosol at home Hx. of GI bleed in past last colonospcopy unremarkable per . consult for Dr. Murphy appreciated; CTA can also be done if able to time acute bleeding with imaging. c/w Protonix 40mg IVP Initial INR on admission was 5.1-->1.35 today Pt. having bloody BMs since hospital admission, volume of bloody BM is starting to trend down.--> Pt. no longer having bloody or dark colored BMs. -A.fib Hold oral anticoagulation(c/w heparin drip) - still in discussion with specialists about when to restart AC and what AC to restart in light of the fact Pt. has had CVA and GI bleed on Coumadin and Pradaxa. Discussion with various specialists have resulted in three options: Coumadin (because of ease of reversibility however had CVA on coumadin and GI bleed), Pradaxa(because of ease of use and lesser CVA, however still had CVA and GI bleed, plus it has predisposition for increasing GI bleed, even though there is a reversal agent it is expensive and difficult to access) and Eliquis (ease of use and less likely to cause GI bleed,even though there is a reversal agent it is expensive and difficult to access). Echo shows: EF-55-60%, RV,LA and RA severely dilated, mild MVP, severe TR, pulm. artery pressure of 46mmHg Telemetry monitoring c/w home dose metoprolol; s/p digoxin loading and 2 maintenance doses to good effect. [facility] medical records appreciated, Dr. Stewart is the student life dean that placed the PPM. -Dysphagia Pt. endorses 2 years of intermittent dysphagia. f/u MBS in AM -HTN-stable resume home BP medications at home doses as BP has been trending up -CHFrEF-stable Echo 08/26 appreciated as noted above monitor volume status- volume overloaded today LE Duplex neg. for DVT increased Lasix to 40mg BID c/w Metalozone -F/E/N D/c-ed IVF with mindfulness of CHF replete potassium as needed, chronically hypokalemic- given 80meq PO K+ today, f /u PM BMP and AM BMP. Na+ controlled Diet modified to honey thick liquids. -DVT Ppx. SCDs Pt. started on Heparin drip, double concentrated to minimize fluid intake. Dispo Pt. walked 150ft. w/ PT, likely will return home on discharge Visit type - Emergency Visit Emergency Visit: Yes ED Registration Date: 08/27/18 Care time: The patient presented to the Emergency Department on the above date and was hospitalized for further evaluation of their emergent condition. - New Patient This patient is new to me today: No - Critical Care Critical Care patient: No - Discharge Referral Referred to [facility] Med P.C.: No
--- NOTE | 2018-09-06 19:11 | PN ---
GI Progress Note Subjective: covering for Dr Walters. Patient with obscure GI bleeding. No melena nor rectal bleeding HGB 8 - Objective Vital Signs: Vital Signs Temperature 98.3 F 09/06/18 14:00 Pulse Rate 119 H 09/06/18 14:00 Respiratory Rate 18 09/06/18 14:00 Blood Pressure 108/62 09/06/18 14:00 O2 Sat by Pulse Oximetry (%) 98 09/06/18 09:00 Respiratory: Yes: CTA Bilaterally Gastrointestinal Inspection: No: Distention ...Palpate: Yes: Soft. No: Guarding, Hepatomegaly, Mass, Pulsatile Mass, Tenderness, Epigastium Labs: CBC, BMP 09/06/18 12:00 09/06/18 06:00 INR, PTT INR 1.35 (0.83-1.09) H 08/31/18 05:30 Problem List - Problems (1) GI bleed Assessment/Plan: obscure gi bleeding R> trend CBC close observation while on AC Code(s): K92.2 - GASTROINTESTINAL HEMORRHAGE, UNSPECIFIED
[2018-09-06] MEDS: RANITIDINE HCL 150 MG TABLET (FP) PO SCH (22:15)
[2018-09-06] MEDS: ATORVASTATIN CA 10 MG TABLET (FP) PO SCH (22:15)
[2018-09-07] MEDS: LEVOTHYROXINE NA 100 MCG TABLET (FP) PO SCH (06:24)
[2018-09-07] MEDS: FUROSEMIDE 40 MG/4 ML INJECTABLE VIAL IVPUSH SCH ×2 (06:24→16:32)
[2018-09-07 06:58] LABS: HEMATOCRIT 22.4 % (35.4-49); HEMOGLOBIN 7.6 GM/dL (11.7-16.9); MCH 31.6 pg (25.7-33.7); MCHC 33.8 g/dl (32.0-35.9); MEAN CELL VOLUME 93.6 fl (80-96); MEAN PLT VOLUME 7.3 fl (7.5-11.1); PLATELET COUNT 150 K/MM3 (134-434); RDW 20.6 % (11.9-15.9); WHITE BLOOD COUNT 3.6 K/mm3 (4.0-10.0)
[2018-09-07 07:22] LABS: ANION GAP 9 MMOL/L (8-16); BLOOD UREA NITROGEN 22 mg/dL (7-18); CALCIUM 7.6 mg/dL (8.5-10.1); CHLORIDE 96 mmol/L (98-107); CO2 33 mmol/L (21-32); GLUCOSE,RANDOM 92 mg/dL (74-106); MAGNESIUM 1.9 mg/dL (1.8-2.4); PHOSPHOROUS 2.8 mg/dL (2.5-4.9); POTASSIUM 3.2 mmol/L (3.5-5.1); SODIUM 138 mmol/L (136-145)
--- NOTE | 2018-09-07 08:06 | PN ---
Progress Note, Physician Chief Complaint: Pt OOB in chair. No chest pain, palpitations, dizziness, or dyspnea. History of Present Illness: 87y white man hx of afib (on pradaxa, s/p PPM placed approx 2 weeks ago), htn, hl, chf, cva, hypothyroidism presents for altered mental status. Per family the patient wasn't himself this weekend, on Monday he was doing some paperwork and got very frustrated doing a task that usually does not give any trouble. On Monday the patient states he wasn't feeling well although he could not specifically verbalize what is bothering him. The patient was feeling worse today and the family noticed that his speech was not as fluid as it usually is,and brought the patient to the ER for evaluation. He denies any headache, chest pain, palpitations, lightheadedness, vision changes, abdominal pain, nausea, vomiting, increased leg swelling. - Current Medication List Current Medications: Active Medications Atorvastatin Calcium (Lipitor -) 10 mg PO HS REPLACED BY [facility] Last Admin: 09/06/18 22:15 Dose: 10 mg Benzocaine/Menthol (Cepacol Lozenge -) 1 each MM PRN PRN PRN Reason: SORE THROAT Furosemide (Lasix Injection -) 40 mg IVPUSH BID@0600,1400 REPLACED [facility] Last Admin: 09/07/18 06:24 Dose: 40 mg Heparin Sodium (Porcine) (Heparin -) 1,000 unit IVPUSH PRN PRN PRN Reason: Heparin Heparin Sodium (Porcine) (Heparin -) 5,000 unit IVPUSH PRN PRN PRN Reason: Heparin Heparin Sodium (Porcine) 25, (000 unit/ Sodium Chloride) 250 mls @ 10 mls/hr IV TITR [facility]; Protocol Last Admin: 09/06/18 10:30 Dose: 900 unit/hr, 9 mls/hr Levothyroxine Sodium (Synthroid -) 100 mcg PO DAILY@0700 REPLACED [facility] Last Admin: 09/07/18 06:24 Dose: 100 mcg Metolazone (Zaroxolyn -) 2.5 mg PO DAILY@1330 [facility]PL[facility] Last Admin: 09/06/18 14:23 Dose: 2.5 mg Metoprolol Tartrate (Lopressor Injection -) 5 mg IVPUSH Q4H PRN PRN Reason: TACHYCARDIA Last Admin: 08/30/18 17:49 Dose: 5 mg Metoprolol Tartrate (Lopressor -) 25 mg PO BID [facility]PL[facility] Last Admin: 09/06/18 22:15 Dose: 25 mg Multivitamins/Minerals (Theragran-M) 1 each PO DAILY [facility] Last Admin: 09/06/18 11:26 Dose: 1 each Pantoprazole Sodium (Protonix Iv) 40 mg IVPUSH DAILY REPLACED BY [facility] Last Admin: 09/06/18 11:26 Dose: 40 mg Ranitidine HCl (Zantac -) 300 mg PO HS [facility]PL[facility] Last Admin: 09/06/18 22:15 Dose: 300 mg - Objective Vital Signs: Vital Signs Temperature 97.6 F 09/07/18 06:00 Pulse Rate 76 09/07/18 06:00 Respiratory Rate 18 09/07/18 06:00 Blood Pressure 97/61 09/07/18 06:00 O2 Sat by Pulse Oximetry (%) 99 09/06/18 21:00 Constitutional: Yes: Calm Eyes: Yes: WNL HENT: Yes: WNL Neck: Yes: WNL Cardiovascular: Yes: S1 (varies in intensity), S2 Respiratory: Yes: Regular Gastrointestinal: Yes: Soft ...Rectal Exam: Yes: Deferred Genitourinary: No: Anuria Breast(s): Yes: WNL Musculoskeletal: Yes: Muscle Weakness Extremities: Yes: WNL Edema: No Peripheral Pulses WNL: Yes Integumentary: Yes: WNL Neurological: Yes: WNL Psychiatric: Yes: WNL Labs: CBC, BMP 09/07/18 05:50 INR, PTT INR 1.35 (0.83-1.09) H 08/31/18 05:30 - ....Imaging Other: Image Reviewed (telemetry: AF) Problem List - Problems (1) Acute on chronic diastolic (congestive) heart failure Code(s): I50.33 - ACUTE ON CHRONIC DIASTOLIC (CONGESTIVE) HEART FAILURE (2) Anemia associated with acute blood loss Assessment/Plan: To be restarted on NOAC (either Pradaxa or apixaban woule be acceptable, if agreed to by almond paste mixer). Code(s): D62 - ACUTE POSTHEMORRHAGIC ANEMIA (3) CVA (cerebral vascular accident) Assessment/Plan: hx CVA years ago while on warfarin. He has been on Pradaxa reportedly for at least 10 years. It is uncertain whether he has had a new CVA now (unable to have MRA due to recent PPM placement ). Presently on IV heparin; plans to restart NOAC, as discussed earlier with Dr. Riggins, almond paste mixer. Code(s): I63.9 - CEREBRAL INFARCTION, UNSPECIFIED Qualifiers: CVA mechanism: occlusion Precerebral and cerebral artery: posterior cerebral artery Laterality of affected vessel: left Qualified Code(s): I63.532 - Cerebral infarction due to unspecified occlusion or stenosis of left posterior cerebral artery (4) Atrial fibrillation Code(s): I48.91 - UNSPECIFIED ATRIAL FIBRILLATION (5) Hypokalemia Code(s): E87.6 - HYPOKALEMIA (6) History of permanent cardiac pacemaker placement Code(s): Z95.0 - PRESENCE OF CARDIAC PACEMAKER
[2018-09-07] MEDS ORDERED: POTASSIUM CHLORIDE TABS 20 MEQ TABLET.ER (FP) PO ONE (09:11)
--- NOTE | 2018-09-07 09:40 | PN ---
Physical Exam: SUBJECTIVE: Patient seen and examined. No BM overnight. Pt. does not believe that food is "going down the wrong pipe." He is unsure as to why he's having coughing fits. OBJECTIVE: Vital Signs Period Temp Pulse Resp BP Sys/Servin Pulse Ox Last 24 Hr 97.5 F-98.3 F 76-119 16-18 97-117/49-68 99 GENERAL: The patient is awake, alert, and fully oriented, in mild respiratory distress. EYES: Sclera anicteric, conjunctiva clear. No ptosis. ENT: Ears normal, nares patent, moist mucous membranes. NECK: Trachea midline, full range of motion, supple, JVD+ (decreased from yesterday). LUNGS: Decreased breath sounds diffusely, diffuse wheezing but less than yesterday, no crackles, no accessory muscle use. HEART: Irregular rate and rhythm, S1, S2 without murmur ABDOMEN: Soft, nontender, distended, normoactive bowel sounds, tympanic to percussion, no guarding, no rebound EXTREMITIES: 2+ left radial pulse, warm, well-perfused, no calf tenderness, decreased edema from yesterday 3+ on right, 2+ on left, decreased warmth from yesterday of RLE and LLE with right being warmer. NEUROLOGICAL: Normal speech, gait not assessed PSYCH: Normal mood, normal affect. SKIN: Warm, dry, normal turgor Laboratory Results - last 24 hr 09/06/18 09/06/18 09/06/18 07:40 12:00 19:00 WBC 4.8 RBC 2.52 L Hgb 8.2 L Hct 23.6 L MCV 93.4 MCH 32.6 MCHC 34.9 RDW 20.9 H Plt Count 180 MPV 7.8 PTT (Actin FS) 72.8 H Sodium Potassium Chloride Carbon Dioxide Anion Gap BUN Creatinine Creat Clearance w eGFR Random Glucose Calcium Phosphorus Magnesium Stool Occult Blood Negative 09/07/18 09/07/18 09/07/18 05:50 05:50 05:50 WBC 3.6 L RBC 2.40 L Hgb 7.6 L Hct 22.4 L MCV 93.6 MCH 31.6 MCHC 33.8 RDW 20.6 H Plt Count 150 MPV 7.3 L PTT (Actin FS) 76.0 H Sodium 138 Potassium 3.2 L Chloride 96 L Carbon Dioxide 33 H Anion Gap 9 BUN 22 H Creatinine 1.0 Creat Clearance w eGFR > 60 Random Glucose 92 Calcium 7.6 L Phosphorus 2.8 Magnesium 1.9 Stool Occult Blood Active Medications Current Medications Atorvastatin Calcium (Lipitor -) 10 mg PO HS [facility] Last Admin: 09/06/18 22:15 Dose: 10 mg Benzocaine/Menthol (Cepacol Lozenge -) 1 each MM PRN PRN PRN Reason: SORE THROAT Furosemide (Lasix Injection -) 40 mg IVPUSH BID@0600,1400 [facility] Last Admin: 09/07/18 06:24 Dose: 40 mg Heparin Sodium (Porcine) (Heparin -) 1,000 unit IVPUSH PRN PRN PRN Reason: Heparin Heparin Sodium (Porcine) (Heparin -) 5,000 unit IVPUSH PRN PRN PRN Reason: Heparin Heparin Sodium (Porcine) 25, (000 unit/ Sodium Chloride) 250 mls @ 10 mls/hr IV TITR [facility]; Protocol Last Admin: 09/06/18 10:30 Dose: 900 unit/hr, 9 mls/hr Levothyroxine Sodium (Synthroid -) 100 mcg PO DAILY@0700 [facility] Last Admin: 09/07/18 06:24 Dose: 100 mcg Metolazone (Zaroxolyn -) 2.5 mg PO DAILY@1330 [facility] Last Admin: 09/06/18 14:23 Dose: 2.5 mg Metoprolol Tartrate (Lopressor Injection -) 5 mg IVPUSH Q4H PRN PRN Reason: TACHYCARDIA Last Admin: 08/30/18 17:49 Dose: 5 mg Metoprolol Tartrate (Lopressor -) 25 mg PO BID [facility] Last Admin: 09/06/18 22:15 Dose: 25 mg Multivitamins/Minerals (Theragran-M) 1 each PO DAILY [facility] Last Admin: 09/06/18 11:26 Dose: 1 each Pantoprazole Sodium (Protonix Iv) 40 mg IVPUSH DAILY [facility] Last Admin: 09/06/18 11:26 Dose: 40 mg Ranitidine HCl (Zantac -) 300 mg PO HS [facility] Last Admin: 09/06/18 22:15 Dose: 300 mg Home Medications Medication Instructions Recorded Ascorbic Acid [Vitamin C] 500 mg PO DAILY 08/05/18 Atorvastatin Ca [Lipitor] 10 mg PO ASDIR 10/28/18 Beta-Carotene(A) W-C and E/Min 1 tab PO DAILY 08/05/18 [Ocuvite (Nf)] Dabigatran Etexilate Mesylate 150 mg PO BID 08/05/18 [Pradaxa -] Famotidine [Pepcid] 40 mg PO ASDIR 08/05/18 Ferrous Sulfate [Feosol] 325 mg PO DAILY 08/05/18 Furosemide [Lasix] 80 mg PO BID 08/05/18 Levothyroxine [Synthroid -] 100 mcg PO DAILY 08/05/18 Metolazone [Zaroxolyn -] 2.5 mg PO DAILY 08/05/18 Metoprolol Tartrate [Lopressor -] 25 mg PO BID 08/05/18 Potassium Chloride 20 meq PO 5XD 08/05/18 ASSESSMENT/PLAN: An 87 y.o. M w/ PMHx. of A. Fib( On Pradaxa), HTN, CVA(2010), HLD, CHFrEF, Hypothyroidism and Hx. of GI Bleed a few years ago presents to the ED with expressive aphasia, "not feeling himself", and GI bleed. -Suspected Ischemic Stroke- resolving CT Head: shows chronic infarcts in left external capsule, no definite acute intracranial pathology. Per Dr. Bueno(consult appreciated) suspicion for left [employer] occipital stroke Rpt. CT Head shows no interval change from 1st CT head. not a candidate for A/C or tPA as Pt. has ongoing GI bleed, recent PPM surgery ( 3 weeks ago) and has stroke like symptoms while on Pradaxa. f/u MRI: Pacemaker is MRI conditional, however given the [facility] policy, Pt. is unable to get MRI. Spoke with two attending radiologists who have confirmed this policy. Pt. also has a newly placed PPM that will not be matured until 08/26 and therefore cannot get MRI until that date. -Anemia 2/2 GI bleed superimposed on chronic anemia- stable HgB s/p 3 units pRBCs: 7.6 f/u CBC at 6pm transfusion threshold is closer to 7.0- c/w serial CBCs, try to keep Hct above 30%. Hematology/Oncology consult (Dr. Riggins) appreciated: recommends Endoscopy negative for localizing bleeding source Internal Hemorrhoids present on colonoscopy Pt. will have outpatient Capsule enterscopy on discharge. Pt. takes Ferosol at home Hx. of GI bleed in past last colonospcopy unremarkable per . consult for Dr. Murphy appreciated; CTA can also be done if able to time acute bleeding with imaging. c/w Protonix 40mg IVP Initial INR on admission was 5.1-->1.35 today Pt. having bloody BMs since hospital admission, volume of bloody BM is starting to trend down.--> Pt. no longer having bloody or dark colored BMs. -A.fib Hold oral anticoagulation(c/w heparin drip) - will start Eliquis on discharge, will f/u with Dr. Lea about dosage. Echo shows: EF-55-60%, RV,LA and RA severely dilated, mild MVP, severe TR, pulm. artery pressure of 46mmHg Telemetry monitoring c/w home dose metoprolol; s/p digoxin loading and 2 maintenance doses to good effect. [facility] medical records appreciated, Dr. Stewart is the chess instructor that placed the PPM. -Dysphagia Pt. endorses 2 years of intermittent dysphagia. MBS has -HTN-stable resume home BP medications at home doses as BP has been trending up -CHFrEF-stable Echo 08/26 appreciated as noted above monitor volume status- volume overloaded today LE Duplex neg. for DVT increased Lasix to 40mg BID c/w Metalozone -F/E/N D/c-ed IVF with mindfulness of CHF replete potassium as needed, chronically hypokalemic- given 80meq PO K+ today, f /u PM BMP and AM BMP. Na+ controlled Diet modified to honey thick liquids. -DVT Ppx. SCDs Pt. started on Heparin drip, double concentrated to minimize fluid intake. Dispo Pt. walked 150ft. w/ PT, likely will return home on discharge Visit type - Emergency Visit Emergency Visit: Yes ED Registration Date: 08/27/18 Care time: The patient presented to the Emergency Department on the above date and was hospitalized for further evaluation of their emergent condition. - New Patient This patient is new to me today: No - Critical Care Critical Care patient: No - Discharge Referral Referred to [facility] Med P.C.: No
--- NOTE | 2018-09-07 10:07 | EKG ---
Test Reason : Blood Pressure : / mmHG Vent. Rate : 085 BPM Atrial Rate : 087 BPM P-R Int : 000 ms QRS Dur : 150 ms QT Int : 448 ms P-R-T Axes : 000 059 -67 degrees QTc Int : 533 ms ATRIAL FIBRILLATION WITH OCCASIONAL ventricular-paced complexes AND WITH PREMATURE VENTRICULAR OR ABERRANTLY CONDUCTED COMPLEXES RIGHT BUNDLE BRANCH BLOCK T WAVE ABNORMALITY, CONSIDER LATERAL ISCHEMIA ABNORMAL ECG WHEN COMPARED WITH ECG OF 31-AUG-2018 16:29, VENT. RATE HAS INCREASED BY 16 BPM Confirmed by NANI JORDAN MD ([id number]) on 09/07/2018 10:07:05 AM Referred By: ERMA BARNETT DR Confirmed By:NANI JORDAN MD
[2018-09-07] MEDS: MULTIVITAMINS THER W-MINERALS COMBO TABLET (FP) PO SCH (10:50)
[2018-09-07] MEDS: PANTOPRAZOLE SODIUM 40 MG VIAL IVPUSH SCH (10:50)
[2018-09-07] MEDS: METOPROLOL TARTRATE 25 MG TABLET (FP) PO SCH ×2 (10:50→21:41)
--- NOTE | 2018-09-07 11:00 | PN ---
Progress Note, MEDICAL OFFICE WORKER - Note Progress Note: Selected Entries 09/07/18 09/07/18 09/07/18 02:00 06:00 09:46 Breakfast 100% Temperature 97.9 F 97.6 F Laboratory Tests 09/07/18 05:50 WBC 3.6 L Pt on nectar thick liquids, pending MBS today.
--- NOTE | 2018-09-07 11:52 | PN ---
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 last evening ( 3 days per quality internship history) he started having difficulty finding words. he went to bed and woke up this am , with same difficulty finding words and felt very fatigue. he denies dysphagia, RYDER , visual abnormalities, weakness , or numbness, or tingling. he usually ambulate with a walker but his gait has become unsteady. he takes pradaxa for A fib, and never missed a dose ( last one yesterday). He had a stroke in 2010 while on coumadin and ws switchex he noticed BRBPR x 3 days now. wihth no abd pain, unable to quantify , but it is a lot. he continued to take pradaxa of note , patient had GI bleed 2 years ago, and was treated at [facility] . Had colonoscopy 2-3 years ago and a biopsy was taken. - Current Medication List Current Medications: Active Medications Atorvastatin Calcium (Lipitor -) 10 mg PO HS [facility] Last Admin: 09/06/18 22:15 Dose: 10 mg Benzocaine/Menthol (Cepacol Lozenge -) 1 each MM PRN PRN PRN Reason: SORE THROAT Furosemide (Lasix Injection -) 40 mg IVPUSH BID@0600,1400 [facility] Last Admin: 09/07/18 06:24 Dose: 40 mg Heparin Sodium (Porcine) (Heparin -) 1,000 unit IVPUSH PRN PRN PRN Reason: Heparin Heparin Sodium (Porcine) (Heparin -) 5,000 unit IVPUSH PRN PRN PRN Reason: Heparin Heparin Sodium (Porcine) 25, (000 unit/ Sodium Chloride) 250 mls @ 10 mls/hr IV TITR NEIL; Protocol Last Titration: 09/07/18 09:00 Dose: 850 unit/hr, 8.5 mls/hr Levothyroxine Sodium (Synthroid -) 100 mcg PO DAILY@0700 [facility] Last Admin: 09/07/18 06:24 Dose: 100 mcg Metolazone (Zaroxolyn -) 2.5 mg PO DAILY@1330 [facility] Last Admin: 09/06/18 14:23 Dose: 2.5 mg Metoprolol Tartrate (Lopressor Injection -) 5 mg IVPUSH Q4H PRN PRN Reason: TACHYCARDIA Last Admin: 08/30/18 17:49 Dose: 5 mg Metoprolol Tartrate (Lopressor -) 25 mg PO BID [facility] Last Admin: 09/07/18 10:50 Dose: 25 mg Multivitamins/Minerals (Theragran-M) 1 each PO DAILY [facility] Last Admin: 09/07/18 10:50 Dose: 1 each Pantoprazole Sodium (Protonix Iv) 40 mg IVPUSH DAILY [facility] Last Admin: 09/07/18 10:50 Dose: 40 mg Ranitidine HCl (Zantac -) 300 mg PO HS [facility] Last Admin: 09/06/18 22:15 Dose: 300 mg - Objective Vital Signs: Vital Signs Temperature 97.6 F 09/07/18 06:00 Pulse Rate 76 09/07/18 06:00 Respiratory Rate 18 09/07/18 09:00 Blood Pressure 97/61 09/07/18 06:00 O2 Sat by Pulse Oximetry (%) 97 09/07/18 09:00 Eyes: Yes: WNL, Conjunctiva Clear, EOM Intact HENT: Yes: WNL, Atraumatic, Normocephalic Neck: Yes: WNL, Supple, Trachea Midline Cardiovascular: Yes: Pulse Irregular, S1, S2 Respiratory: Yes: WNL, Regular, CTA Bilaterally Gastrointestinal: Yes: WNL, Normal Bowel Sounds Genitourinary: Yes: WNL Musculoskeletal: Yes: WNL Extremities: Yes: WNL, Erythema Edema: Yes Edema: LLE: 2+, RLE: 2+ Integumentary: Yes: WNL Neurological: Yes: WNL, Alert, Oriented ...Motor Strength: WNL Psychiatric: Yes: WNL Labs: CBC, BMP 09/07/18 05:50 09/07/18 05:50 INR, PTT INR 1.35 (0.83-1.09) H 08/31/18 05:30 Problem List - Problems (1) Altered mental status Code(s): R41.82 - ALTERED MENTAL STATUS, UNSPECIFIED Qualifiers: Altered mental status type: transient alteration of awareness Qualified Code(s): R40.4 - Transient alteration of awareness (2) CVA (cerebral vascular accident) Code(s): I63.9 - CEREBRAL INFARCTION, UNSPECIFIED Qualifiers: CVA mechanism: occlusion Precerebral and cerebral artery: posterior cerebral artery Laterality of affected vessel: left Qualified Code(s): I63.532 - Cerebral infarction due to unspecified occlusion or stenosis of left posterior cerebral artery (3) Acute exacerbation of CHF (congestive heart failure) Code(s): I50.9 - HEART FAILURE, UNSPECIFIED (4) Anemia Code(s): D64.9 - ANEMIA, UNSPECIFIED Qualifiers: (5) Atrial fibrillation Code(s): I48.91 - UNSPECIFIED ATRIAL FIBRILLATION (6) Atrial fibrillation with rapid ventricular response Code(s): I48.91 - UNSPECIFIED ATRIAL FIBRILLATION (7) Benign prostate hyperplasia Code(s): N40.0 - BENIGN PROSTATIC HYPERPLASIA WITHOUT LOWER URINRY TRACT SYMP (8) Bradycardia Code(s): R00.1 - BRADYCARDIA, UNSPECIFIED (9) Bradycardia Code(s): R00.1 - BRADYCARDIA, UNSPECIFIED (10) Bradycardia with 31-40 beats per minute Code(s): R00.1 - BRADYCARDIA, UNSPECIFIED (11) Cellulitis Code(s): L03.90 - CELLULITIS, UNSPECIFIED Qualifiers: (12) Congestive heart failure (CHF) Code(s): I50.9 - HEART FAILURE, UNSPECIFIED (13) DVT prophylaxis Code(s): [id number] - (14) H/O: CVA (cerebrovascular accident) Code(s): Z86.73 - PRSNL HX OF TIA (TIA), AND CEREB INFRC W/O RESID DEFICITS (15) Head injury Code(s): S09.90XA - UNSPECIFIED INJURY OF HEAD, INITIAL ENCOUNTER (16) Hyperlipidemia Code(s): E78.5 - HYPERLIPIDEMIA, UNSPECIFIED (17) Hypothyroidism Code(s): E03.9 - HYPOTHYROIDISM, UNSPECIFIED Qualifiers: Hypothyroidism type: unspecified Qualified Code(s): E03.9 - Hypothyroidism , unspecified (18) Idioventricular rhythm Code(s): I44.2 - ATRIOVENTRICULAR BLOCK, COMPLETE (19) Macular degeneration of both eyes Code(s): H35.30 - UNSPECIFIED MACULAR DEGENERATION Qualifiers: Macular degeneration type: nonexudative age-related Nonexudative macular degeneration stage: intermediate dry stage Qualified Code(s): H35.3132 - Nonexudative age-related macular degeneration, bilateral, intermediate dry stage (20) Macular degeneration, age related Code(s): H35.30 - UNSPECIFIED MACULAR DEGENERATION (21) Near syncope Code(s): R55 - SYNCOPE AND COLLAPSE (22) Pleural effusion Code(s): J90 - PLEURAL EFFUSION, NOT ELSEWHERE CLASSIFIED (23) Pleural effusion Code(s): J90 - PLEURAL EFFUSION, NOT ELSEWHERE CLASSIFIED (24) Pneumonia Code(s): J18.9 - PNEUMONIA, UNSPECIFIED ORGANISM (25) RVF (right ventricular failure) Code(s): I50.9 - HEART FAILURE, UNSPECIFIED (26) Renal dysfunction Code(s): N28.9 - DISORDER OF KIDNEY AND URETER, UNSPECIFIED (27) Scrotal blister Code(s): S30.823A - BLISTER (NONTHERMAL) OF SCROTUM AND TESTES, INIT ENCNTR (28) Supratherapeutic INR Code(s): R79.1 - ABNORMAL COAGULATION PROFILE (29) Syncope Code(s): R55 - SYNCOPE AND COLLAPSE (30) Systolic CHF, chronic Code(s): I50.22 - CHRONIC SYSTOLIC (CONGESTIVE) HEART FAILURE (31) Weakness Code(s): R53.1 - WEAKNESS Assessment/Plan - Problems (1) Acute on chronic diastolic (congestive) heart failure Code(s): I50.33 - ACUTE ON CHRONIC DIASTOLIC (CONGESTIVE) HEART FAILURE cont IV lasix (2) Anemia associated with acute blood loss Assessment/Plan: To be restarted on NOAC (either Pradaxa or apixaban woule be acceptable, if agreed to by test preparer). Code(s): D62 - ACUTE POSTHEMORRHAGIC ANEMIA (3) CVA (cerebral vascular accident) Assessment/Plan: hx CVA years ago while on warfarin. He has been on Pradaxa reportedly for at least 10 years. It is uncertain whether he has had a new CVA now (unable to have MRA due to recent PPM placement ). Presently on IV heparin; plans to restart NOAC, Code(s): I63.9 - CEREBRAL INFARCTION, UNSPECIFIED Qualifiers: CVA mechanism: occlusion Precerebral and cerebral artery: posterior cerebral artery Laterality of affected vessel: left Qualified Code(s): I63.532 - Cerebral infarction due to unspecified occlusion or stenosis of left posterior cerebral artery (4) Atrial fibrillation Assessment/Plan: On metoprolol for HR control. On IV heparin; plans to convert to NOAC. Code(s): I48.91 - UNSPECIFIED ATRIAL FIBRILLATION (5) Hypokalemia Assessment/Plan: Replete, and keep 4-4.5 Keep Mg 2-2.4 PO4 2.5-4.9 Code(s): E87.6 - HYPOKALEMIA (6) History of permanent cardiac pacemaker placement Code(s): Z95.0 - PRESENCE OF CARDIAC PACEMAKER
--- NOTE | 2018-09-07 14:01 | PN ---
Teaching Attending Note Name of Resident: Keaton Pinzon ATTENDING PHYSICIAN STATEMENT I saw and evaluated the patient. I reviewed the resident's note and discussed the case with the resident. I agree with the resident's findings and plan as documented. SUBJECTIVE: No fever or chills . No pain. no weakness, no diarrhea . OBJECTIVE: NAD, Awake,Nl speech . CV: RRR, 2/6 SM at apex Lungs: minimal bibasilar crackles Ext: LE: hyperpigmentation ,3+ pitting edema Neuro: speech NL. EOMI, round equal pupils, reactive to light. tongue at mid line. nl facial sensation. strength 5/5 in upper and lower extremities proximally and distally. sensation to light touch NL. Reflexes : 2+ biceps and BR. 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 Hb dropped slightly, but no melena or hematochezia noted -repeat HB today , might be lab variation - cont heparin gtt - if no bleed then NOACs can be resumed hopefully over weekend, and capsule endoscopy can be done as out pt - when resuming po AC, will try eliquis - scheduled patient with GI appointment at [place] on Monday 3- H/o A fib: - decrease metoprolol to 12.5 instead of 25 due to hypotension - AC as above - monitor on tele. 4- Systolic and diastolic heart failure: now more edema than before - cont lasix at 40 BId for now - monitor I&Os - weight 5-replete Kcl, and add daily dose Cont to monitor closely on tele . HLOC anticipate dc over weekend if Hb remains stable
[2018-09-07] MEDS ORDERED: PT OWN MED DRAWER 7, Y5N ONE (14:22)
--- NOTE | 2018-09-07 15:01 | PN ---
Progress Note (short form) - Note Progress Note: Patient seen and examined No specific complaints Continuing on heparin Hct relatively stable Last Vital Signs Temp Pulse Resp BP Pulse Ox 97.9 F 91 H 18 96/54 L 97 09/07/18 14:00 09/07/18 14:00 09/07/18 14:00 09/07/18 14:00 09/07/18 09:00 HEENT: RAVEN, EOM Intact Cor: irregular Lungs: Clear to P&A Abd: Soft, Normal bowel sounds, No organomegaly Ext: edema LE Skin: stasis CBC, BMP 09/07/18 05:50 09/07/18 05:50 Current Medications Generic Name Dose Route Start Last Admin Trade Name Freq PRN Reason Stop Dose Admin Atorvastatin Calcium 10 mg 09/04/18 22:00 09/06/18 22:15 Lipitor - PO 10 mg HS NEIL Administration Benzocaine/Menthol 1 each 09/05/18 05:12 Cepacol Lozenge - MM PRN PRN SORE THROAT Furosemide 40 mg 09/05/18 16:52 09/07/18 06:24 Lasix Injection - IVPUSH 40 mg BID@0600,1400 NEIL Administration Heparin Sodium (Porcine) 1,000 unit 09/04/18 17:27 Heparin - IVPUSH PRN PRN Heparin Heparin Sodium (Porcine) 5,000 unit 09/04/18 17:27 Heparin - IVPUSH PRN PRN Heparin Heparin Sodium (Porcine) 25, 250 mls @ 10 mls/hr 09/05/18 10:45 09/07/18 09: 00 000 unit/ Sodium Chloride IV 850 unit/hr TITR NEIL 8.5 mls/hr Titration Protocol 1,000 UNIT/HR Levothyroxine Sodium 100 mcg 09/04/18 10:00 09/07/18 06:24 Synthroid - PO 100 mcg DAILY@0700 NEIL Administration Metolazone 2.5 mg 09/04/18 13:30 09/06/18 14:23 Zaroxolyn - PO 2.5 mg DAILY@1330 NEIL Administration Metoprolol Tartrate 5 mg 08/30/18 10:24 08/30/18 17:49 Lopressor Injection - IVPUSH 5 mg Q4H PRN Administration TACHYCARDIA Metoprolol Tartrate 12.5 mg 09/07/18 13:25 Lopressor - PO BID NEIL Multivitamins/Minerals 1 each 09/03/18 10:00 09/07/18 10:50 Theragran-M PO 1 each DAILY NEIL Administration Pantoprazole Sodium 40 mg 08/30/18 13:30 09/07/18 10:50 Protonix Iv IVPUSH 40 mg DAILY NEIL Administration Potassium Chloride 20 meq 09/08/18 10:00 K-Dur - PO DAILY NEIL Ranitidine HCl 300 mg 09/04/18 22:00 09/06/18 22:15 Zantac - PO 300 mg HS NEIL Administration Impression: Hx of GI bleed Systolic/diastolic CHF Stroke on coumadin Recent CVA Multiple co-morbid problems Would consider resumtion of NOAC ? favianis Would transfuse one unit of packed cells in AM.
[2018-09-07] MEDS: METOLAZONE 2.5 MG TABLET (FP) PO SCH (15:53)
[2018-09-07] MEDS: HEPARIN - 25,000 UNIT in SODIUM CHLORIDE 245 ML IV SCH (16:47)
[2018-09-07 21:25] LABS: HEMATOCRIT 23.8 % (35.4-49); HEMOGLOBIN 8.4 GM/dL (11.7-16.9); MCH 33.1 pg (25.7-33.7); MCHC 35.3 g/dl (32.0-35.9); MEAN CELL VOLUME 93.8 fl (80-96); MEAN PLT VOLUME 8.4 fl (7.5-11.1); PLATELET COUNT 199 K/MM3 (134-434); RBC 2.54 M/mm3 (4.00-5.60); RDW 20.7 % (11.9-15.9); WHITE BLOOD COUNT 3.7 K/mm3 (4.0-10.0)
[2018-09-07] MEDS: ATORVASTATIN CA 10 MG TABLET (FP) PO SCH (21:41)
[2018-09-07] MEDS: RANITIDINE HCL 150 MG TABLET (FP) PO SCH (21:41)
[2018-09-08] MEDS: FUROSEMIDE 40 MG/4 ML INJECTABLE VIAL IVPUSH SCH ×2 (06:15→13:38)
[2018-09-08] MEDS: LEVOTHYROXINE NA 100 MCG TABLET (FP) PO SCH (06:15)
[2018-09-08 07:44] LABS: BASO % 0.6 % (0-2.0); EOS % 2.8 % (0-4.5); HEMATOCRIT 23.4 % (35.4-49); HEMOGLOBIN 7.8 GM/dL (11.7-16.9); LYMPH % 18.8 % (8-40); MCH 31.5 pg (25.7-33.7); MCHC 33.6 g/dl (32.0-35.9); MEAN CELL VOLUME 93.8 fl (80-96); MEAN PLT VOLUME 7.7 fl (7.5-11.1); MONO % 4.3 % (3.8-10.2); NEUT % 73.5 % (42.8-82.8); PLATELET COUNT 168 K/MM3 (134-434); RBC 2.49 M/mm3 (4.00-5.60); RDW 20.4 % (11.9-15.9); WHITE BLOOD COUNT 3.7 K/mm3 (4.0-10.0)
[2018-09-08 08:17] LABS: ALBUMIN 2.7 g/dl (3.4-5.0); ALK PHOS 143 U/L (45-117); ANION GAP 6 MMOL/L (8-16); BILIRUBIN,TOTAL 0.6 mg/dL (0.2-1); BLOOD UREA NITROGEN 24 mg/dL (7-18); CALCIUM 8.1 mg/dL (8.5-10.1); CHLORIDE 95 mmol/L (98-107); CO2 36 mmol/L (21-32); CREATININE 1.1 mg/dL (0.55-1.3); GLUCOSE,RANDOM 89 mg/dL (74-106); MAGNESIUM 2.1 mg/dL (1.8-2.4); POTASSIUM 3.3 mmol/L (3.5-5.1); SGOT/AST 61 U/L (15-37); SGPT/ALT 35 U/L (13-61); SODIUM 137 mmol/L (136-145); TOT PROT 6.9 g/dl (6.4-8.2)
--- NOTE | 2018-09-08 09:11 | PN ---
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 he went to bed and woke up this am , with same difficulty finding words and felt very fatigue. he denies dysphagia, RYDER , visual abnormalities, weakness , or numbness, or tingling. he usually ambulate with a walker but his gait has become unsteady. he takes pradaxa for A fib, and never missed a dose ( last one yesterday). He had a stroke in 2010 while on coumadin and ws switchex he noticed BRBPR x 3 days now. wihth no abd pain, unable to quantify , but it is a lot. he continued to take pradaxa of note , patient had GI bleed 2 years ago, and was treated at [place] . Had colonoscopy 2-3 years ago and a biopsy was taken. - Current Medication List Current Medications: Active Medications Atorvastatin Calcium (Lipitor -) 10 mg PO HS [facility] Last Admin: 09/07/18 21:41 Dose: 10 mg Benzocaine/Menthol (Cepacol Lozenge -) 1 each MM PRN PRN PRN Reason: SORE THROAT Furosemide (Lasix Injection -) 40 mg IVPUSH BID@0600,1400 [facility] Last Admin: 09/08/18 06:15 Dose: 40 mg Heparin Sodium (Porcine) (Heparin -) 1,000 unit IVPUSH PRN PRN PRN Reason: Heparin Heparin Sodium (Porcine) (Heparin -) 5,000 unit IVPUSH PRN PRN PRN Reason: Heparin Heparin Sodium (Porcine) 25, (000 unit/ Sodium Chloride) 250 mls @ 10 mls/hr IV TITR NEIL; Protocol Last Admin: 09/07/18 16:47 Dose: 850 unit/hr, 8.5 mls/hr Levothyroxine Sodium (Synthroid -) 100 mcg PO DAILY@0700 [facility] Last Admin: 09/08/18 06:15 Dose: 100 mcg Metolazone (Zaroxolyn -) 2.5 mg PO DAILY@1330 [facility] Last Admin: 09/07/18 15:53 Dose: 2.5 mg Metoprolol Tartrate (Lopressor Injection -) 5 mg IVPUSH Q4H PRN PRN Reason: TACHYCARDIA Last Admin: 08/30/18 17:49 Dose: 5 mg Metoprolol Tartrate (Lopressor -) 12.5 mg PO BID [facility] Last Admin: 09/07/18 21:41 Dose: 12.5 mg Multivitamins/Minerals (Theragran-M) 1 each PO DAILY [facility] Last Admin: 09/07/18 10:50 Dose: 1 each Pantoprazole Sodium (Protonix Iv) 40 mg IVPUSH DAILY [facility] Last Admin: 09/07/18 10:50 Dose: 40 mg Potassium Chloride (K-Dur -) 20 meq PO DAILY [facility] Ranitidine HCl (Zantac -) 300 mg PO HS [facility] Last Admin: 09/07/18 21:41 Dose: 300 mg - Objective Vital Signs: Vital Signs Temperature 97.6 F 09/08/18 06:14 Pulse Rate 106 H 09/08/18 06:14 Respiratory Rate 18 09/08/18 06:14 Blood Pressure 114/69 09/08/18 06:14 O2 Sat by Pulse Oximetry (%) 99 09/07/18 21:00 Eyes: Yes: WNL, Conjunctiva Clear, EOM Intact HENT: Yes: WNL, Atraumatic, Normocephalic Neck: Yes: WNL, Supple, Trachea Midline Cardiovascular: Yes: WNL, Regular Rate and Rhythm Respiratory: Yes: WNL, Regular, CTA Bilaterally Gastrointestinal: Yes: WNL, Normal Bowel Sounds Genitourinary: Yes: WNL Musculoskeletal: Yes: WNL Extremities: Yes: WNL Edema: No Integumentary: Yes: WNL Neurological: Yes: WNL, Alert, Oriented ...Motor Strength: WNL Psychiatric: Yes: WNL Labs: CBC, BMP 09/08/18 06:05 09/08/18 06:05 INR, PTT INR 1.35 (0.83-1.09) H 08/31/18 05:30 Problem List - Problems (1) Altered mental status Code(s): R41.82 - ALTERED MENTAL STATUS, UNSPECIFIED Qualifiers: Altered mental status type: transient alteration of awareness Qualified Code(s): R40.4 - Transient alteration of awareness (2) CVA (cerebral vascular accident) Code(s): I63.9 - CEREBRAL INFARCTION, UNSPECIFIED Qualifiers: CVA mechanism: occlusion Precerebral and cerebral artery: posterior cerebral artery Laterality of affected vessel: left Qualified Code(s): I63.532 - Cerebral infarction due to unspecified occlusion or stenosis of left posterior cerebral artery (3) Acute exacerbation of CHF (congestive heart failure) Code(s): I50.9 - HEART FAILURE, UNSPECIFIED (4) Anemia Code(s): D64.9 - ANEMIA, UNSPECIFIED Qualifiers: (5) Atrial fibrillation Code(s): I48.91 - UNSPECIFIED ATRIAL FIBRILLATION (6) Atrial fibrillation with rapid ventricular response Code(s): I48.91 - UNSPECIFIED ATRIAL FIBRILLATION (7) Benign prostate hyperplasia Code(s): N40.0 - BENIGN PROSTATIC HYPERPLASIA WITHOUT LOWER URINRY TRACT SYMP (8) Bradycardia Code(s): R00.1 - BRADYCARDIA, UNSPECIFIED (9) Bradycardia Code(s): R00.1 - BRADYCARDIA, UNSPECIFIED (10) Bradycardia with 31-40 beats per minute Code(s): R00.1 - BRADYCARDIA, UNSPECIFIED (11) Cellulitis Code(s): L03.90 - CELLULITIS, UNSPECIFIED Qualifiers: (12) Congestive heart failure (CHF) Code(s): I50.9 - HEART FAILURE, UNSPECIFIED (13) DVT prophylaxis Code(s): [id number] - (14) H/O: CVA (cerebrovascular accident) Code(s): Z86.73 - PRSNL HX OF TIA (TIA), AND CEREB INFRC W/O RESID DEFICITS (15) Head injury Code(s): S09.90XA - UNSPECIFIED INJURY OF HEAD, INITIAL ENCOUNTER (16) Hyperlipidemia Code(s): E78.5 - HYPERLIPIDEMIA, UNSPECIFIED (17) Hypothyroidism Code(s): E03.9 - HYPOTHYROIDISM, UNSPECIFIED Qualifiers: Hypothyroidism type: unspecified Qualified Code(s): E03.9 - Hypothyroidism , unspecified (18) Idioventricular rhythm Code(s): I44.2 - ATRIOVENTRICULAR BLOCK, COMPLETE (19) Macular degeneration of both eyes Code(s): H35.30 - UNSPECIFIED MACULAR DEGENERATION Qualifiers: Macular degeneration type: nonexudative age-related Nonexudative macular degeneration stage: intermediate dry stage Qualified Code(s): H35.3132 - Nonexudative age-related macular degeneration, bilateral, intermediate dry stage (20) Macular degeneration, age related Code(s): H35.30 - UNSPECIFIED MACULAR DEGENERATION (21) Near syncope Code(s): R55 - SYNCOPE AND COLLAPSE (22) Pleural effusion Code(s): J90 - PLEURAL EFFUSION, NOT ELSEWHERE CLASSIFIED (23) Pleural effusion Code(s): J90 - PLEURAL EFFUSION, NOT ELSEWHERE CLASSIFIED (24) Pneumonia Code(s): J18.9 - PNEUMONIA, UNSPECIFIED ORGANISM (25) RVF (right ventricular failure) Code(s): I50.9 - HEART FAILURE, UNSPECIFIED (26) Renal dysfunction Code(s): N28.9 - DISORDER OF KIDNEY AND URETER, UNSPECIFIED (27) Scrotal blister Code(s): S30.823A - BLISTER (NONTHERMAL) OF SCROTUM AND TESTES, INIT ENCNTR (28) Supratherapeutic INR Code(s): R79.1 - ABNORMAL COAGULATION PROFILE (29) Syncope Code(s): R55 - SYNCOPE AND COLLAPSE (30) Systolic CHF, chronic Code(s): I50.22 - CHRONIC SYSTOLIC (CONGESTIVE) HEART FAILURE (31) Weakness Code(s): R53.1 - WEAKNESS Assessment/Plan - Problems (1) Acute on chronic diastolic (congestive) heart failure Code(s): I50.33 - ACUTE ON CHRONIC DIASTOLIC (CONGESTIVE) HEART FAILURE cont IV lasix (2) Anemia associated with acute blood loss Assessment/Plan: To be restarted on NOAC (either Pradaxa or apixaban woule be acceptable, if agreed to by tailor women's garment alteration). Code(s): D62 - ACUTE POSTHEMORRHAGIC ANEMIA (3) CVA (cerebral vascular accident) Assessment/Plan: hx CVA years ago while on warfarin. He has been on Pradaxa reportedly for at least 10 years. It is uncertain whether he has had a new CVA now (unable to have MRA due to recent PPM placement ). Presently on IV heparin; plans to restart NOAC, Code(s): I63.9 - CEREBRAL INFARCTION, UNSPECIFIED Qualifiers: CVA mechanism: occlusion Precerebral and cerebral artery: posterior cerebral artery Laterality of affected vessel: left Qualified Code(s): I63.532 - Cerebral infarction due to unspecified occlusion or stenosis of left posterior cerebral artery (4) Atrial fibrillation Assessment/Plan: On metoprolol for HR control. On IV heparin; plans to convert to NOAC. Code(s): I48.91 - UNSPECIFIED ATRIAL FIBRILLATION (5) Hypokalemia Assessment/Plan: Replete, and keep 4-4.5 Keep Mg 2-2.4 PO4 2.5-4.9 Code(s): E87.6 - HYPOKALEMIA (6) History of permanent cardiac pacemaker placement Code(s): Z95.0 - PRESENCE OF CARDIAC PACEMAKER
[2018-09-08] MEDS ORDERED: PT OWN MED DRAWER 7, Y5N ONE (09:49)
[2018-09-08] MEDS ORDERED: POTASSIUM CHLORIDE TABS 10 MEQ TABLET.ER (FP) PO SCH (10:00)
[2018-09-08] MEDS: METOPROLOL TARTRATE 25 MG TABLET (FP) PO SCH (10:04)
[2018-09-08] MEDS: PANTOPRAZOLE SODIUM 40 MG VIAL IVPUSH SCH (10:04)
[2018-09-08] MEDS: MULTIVITAMINS THER W-MINERALS COMBO TABLET (FP) PO SCH (10:04)
[2018-09-08] MEDS: HEPARIN - 25,000 UNIT in SODIUM CHLORIDE 245 ML IV SCH (10:08)
[2018-09-08] MEDS ORDERED: POTASSIUM CHLORIDE TABS 20 MEQ TABLET.ER (FP) PO ONE (12:00)
[2018-09-08] MEDS ORDERED: APIXABAN 2.5 MG TABLET PO SCH (12:30)
--- NOTE | 2018-09-08 13:09 | PN ---
Teaching Attending Note Name of Resident: Keaton Pinzon ATTENDING PHYSICIAN STATEMENT I saw and evaluated the patient. I reviewed the resident's note and discussed the case with the resident. I agree with the resident's findings and plan as documented. SUBJECTIVE: no fever or chills. has no abd pain, no weakness. no chills, no SOB . lost weight. big non bloody BM OBJECTIVE: NAD. 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 no recurrnence. Hb fluctuation noted. no active bleed. give one unit of blood as a reserve in case he bleeds given his heart disaease and his recent CVA APt with GI at [place] for Monday to arrange capsule endoscopy 3- H/o A fib: - cont decreased dose metoprolol 12.5 as Blood pressure on lower side - dc heparin gtt and start eliquis at 2.5 given his high risk for bleed. this was d/w card dr. Salomon. 4- Systolic and diastolic heart failure: resume his home dose lasix 80 po bID cont home Kcl 5-dispo : dc home today - f/u with neurology , card, GI ( made appointment for him ) , PCP. VNS services to be arranged
[2018-09-08] MEDS: METOLAZONE 2.5 MG TABLET (FP) PO SCH (13:38)
--- NOTE | 2018-09-08 14:44 | DS ---
Physical Exam: SUBJECTIVE: Patient seen and examined OBJECTIVE: Vital Signs Period Temp Pulse Resp BP Sys/Servin Pulse Ox Last 24 Hr 97.6 F-97.9 F 84-115 18-20 99-114/51-69 98-99 PHYSICAL EXAM GENERAL: The patient is awake, alert, and fully oriented, in no acute distress. HEAD: Normal with no signs of trauma. EYES: PERRL, extraocular movements intact, sclera anicteric, conjunctiva clear. ENT: Ears normal, nares patent, oropharynx clear without exudates, moist mucous membranes. NECK: Trachea midline, full range of motion, supple. LUNGS: Breath sounds equal, clear to auscultation bilaterally, no wheezes, no crackles, no accessory muscle use. HEART: Regular rate and rhythm, S1, S2 without murmur, rub or gallop. ABDOMEN: Soft, nontender, nondistended, normoactive bowel sounds, no guarding, no rebound, no hepatosplenomegaly, no masses. EXTREMITIES: 2+ pulses, warm, well-perfused, no edema. NEUROLOGICAL: Cranial nerves II through XII grossly intact. Normal speech, gait not observed. PSYCH: Normal mood, normal affect. SKIN: Warm, dry, normal turgor, no rashes or lesions noted. LABS Laboratory Results - last 24 hr 09/07/18 09/07/18 09/08/18 18:00 22:00 06:05 WBC 3.7 L RBC 2.54 L Hgb 8.4 L Hct 23.8 L MCV 93.8 MCH 33.1 MCHC 35.3 RDW 20.7 H Plt Count 199 D MPV 8.4 D Absolute Neuts (auto) Neutrophils % Lymphocytes % Monocytes % Eosinophils % Basophils % Nucleated RBC % PTT (Actin FS) 66.4 H Sodium Potassium Chloride Carbon Dioxide Anion Gap BUN Creatinine Creat Clearance w eGFR Random Glucose Calcium Phosphorus Magnesium Total Bilirubin AST ALT Alkaline Phosphatase Total Protein Albumin Blood Type A POSITIVE Antibody Screen Negative Crossmatch See Detail 09/08/18 09/08/18 06:05 06:05 WBC 3.7 L RBC 2.49 L Hgb 7.8 L Hct 23.4 L MCV 93.8 MCH 31.5 MCHC 33.6 RDW 20.4 H Plt Count 168 MPV 7.7 Absolute Neuts (auto) 2.7 Neutrophils % 73.5 Lymphocytes % 18.8 D Monocytes % 4.3 Eosinophils % 2.8 Basophils % 0.6 Nucleated RBC % 0 PTT (Actin FS) Sodium 137 Potassium 3.3 L Chloride 95 L Carbon Dioxide 36 H Anion Gap 6 L BUN 24 H Creatinine 1.1 Creat Clearance w eGFR > 60 Random Glucose 89 Calcium 8.1 L Phosphorus 3.0 Magnesium 2.1 Total Bilirubin 0.6 AST 61 H ALT 35 Alkaline Phosphatase 143 H Total Protein 6.9 Albumin 2.7 L Blood Type Antibody Screen Crossmatch HOSPITAL COURSE: Date of Admission:08/27/18 Date of Discharge: 09/08/18 Discharge Summary Reason For Visit: CVA,ANEMIA Current Active Problems Acute on chronic diastolic (congestive) heart failure (Acute) Altered mental status (Acute) Anemia (Acute) Anemia associated with acute blood loss (Acute) Biventricular CHF (congestive heart failure) (Acute) CVA (cerebral vascular accident) (Acute) Gastrointestinal hemorrhage with melena (Acute) Hypokalemia (Acute) Hypotension due to blood loss (Acute) Persistent atrial fibrillation (Acute) Atrial fibrillation with rapid ventricular response (Chronic) Benign prostate hyperplasia (Chronic) History of permanent cardiac pacemaker placement (Chronic) Hyperlipidemia (Chronic) Hypothyroidism (Chronic) Macular degeneration of both eyes (Chronic) Systolic CHF, chronic (Chronic) Condition: Improved - Instructions Diet, Activity, Other Instructions: You were admitted for difficulty finding words during speech ( sign of stroke ) and for a GI bleed. We have adjusted your medications" We have discontinued your Pradaxa, please DO NOT take this medication any more. We have started you on Eliquis 2.5 mg TWICE a day (every 12 hours). We have started you on this pill this afternoon, your next dose is 12 hours from that time. In order to adjust your dosing to a more appropriate time frame you can take your dose 1 hour earlier each day to move your time to a more convenient schedule. We have changed your Metoprolol to 12.5 mg TWICE a Day, because we noticed that your blood pressure was low. Please take as prescribed. Please follow up with your Platform Architect (Dr. Curtis Cabezas) on Monday at 9am for your appointment that has been scheduled. Please discuss your Capsule enterescopy procedure that we recommend. Please follow up with your Cardiolgist (Dr. Knox) within 1 week to discuss your BP medications and your Eliquis. Please follow up with your Lathe Operator [employer] (Dr. Riggins) within 2 weeks to discuss your Eliquis and your anemia. Please follow up with your Neurologist (Dr. Bueno) within 2 weeks to discuss if you need an MRI after September 18, 2018. Please follow up with your Primary Care Physician (Dr. Polo) within 1 week to discuss your overall health including your medication adjustments. Please return to the ER if you have worsening chest pain, abnormal speech, facial droop, weakness in on side of the body over the other, notice blood in your urine or stool, if you notice bruises that are expanding in size or other sites of bleeding that wont stop. Please be careful not to bum into objects or fall down as you will have bleeding that will last longer than usual while you take Eliquis. You need a blood work (CBC) in 1 week. Fax results to your PCP Dr. Polo Referrals: Dyan Knox MD [Staff Physician] - 1 Week Brian Polo MD [Primary Care Provider] - 1 Week Curtis Nam [Non Staff, Medical] - 09/10/18 9:00 am Patrice Riggins MD [Staff Physician] - 2 Weeks David Bueno MD [Staff Physician] - 2 Weeks Disposition: VNS/HOME HEALTH CARE - Home Medications Comprehensive Discharge Medication List: Ambulatory Orders Ascorbic Acid [Vitamin C] 500 mg PO DAILY 08/05/18 Atorvastatin Ca [Lipitor] 10 mg PO ASDIR 08/05/18 Beta-Carotene(A) W-C and E/Min [Ocuvite (Nf) -] 1 tab PO DAILY 08/05/18 Famotidine [Pepcid] 40 mg PO ASDIR 08/05/18 Ferrous Sulfate [Feosol] 325 mg PO DAILY 08/05/18 Furosemide [Lasix] 80 mg PO BID 08/05/18 Levothyroxine [Synthroid -] 100 mcg PO DAILY 08/05/18 Metolazone [Zaroxolyn -] 2.5 mg PO DAILY 08/05/18 Apixaban [Eliquis -] 2.5 mg PO BID #60 tablet 09/08/18 Metoprolol Tartrate [Lopressor -] 12.5 mg PO BID #60 tablet 09/08/18 Potassium Chloride [K-Dur -] 20 meq PO DAILY #30 tablet.er 09/08/18 - Discharge Referral Referred to [facility] No
[2018-09-08 14:51] VITALS: PULSE 116
[2018-09-08 15:02] VITALS: BP 106/63; TEMP 97.8
== END 2018-09-08 16:15 | disposition home health service (06) | DRG 64 ==
LOC: JER 10:28 → JERBED 14:20 → J4W 18:55 → JICU 08-29 16:01 → J4S 08-31 20:09
PROVIDERS: ADMIT Internal Medicine; ATTEND Internal Medicine
PROC: 30233N1 Transfusion of Nonautologous Red Blood Cells into Peripheral Vein, Percutaneous Approach (ICD-10-PCS; 2018-08-27)
PROC: 0DJ08ZZ Inspection of Upper Intestinal Tract, Via Natural or Artificial Opening Endoscopic (ICD-10-PCS; 2018-09-03)
PROC: 0DJD8ZZ Inspection of Lower Intestinal Tract, Via Natural or Artificial Opening Endoscopic (ICD-10-PCS; principal; 2018-09-03 15:00)
DX: I63.532 Cerebral infarction due to unspecified occlusion or stenosis of left posterior cerebral artery (principal); I50.33 Acute on chronic diastolic (congestive) heart failure; J98.11 Atelectasis; D62 Acute posthemorrhagic anemia; I47.2 Ventricular tachycardia; K92.2 Gastrointestinal hemorrhage, unspecified; L97.918 Non-pressure chronic ulcer of unspecified part of right lower leg with other specified severity; I24.8 Other forms of acute ischemic heart disease; I48.1 Persistent atrial fibrillation; R29.700 NIHSS score 0; E78.5 Hyperlipidemia, unspecified; E03.9 Hypothyroidism, unspecified; I45.10 Unspecified right bundle-branch block; I25.10 Atherosclerotic heart disease of native coronary artery without angina pectoris; F03.90 Unspecified dementia, unspecified severity, without behavioral disturbance, psychotic disturbance, mood disturbance, and anxiety; M19.90 Unspecified osteoarthritis, unspecified site; I49.9 Cardiac arrhythmia, unspecified; I27.20 Pulmonary hypertension, unspecified; N40.0 Benign prostatic hyperplasia without lower urinary tract symptoms; F41.9 Anxiety disorder, unspecified; K21.9 Gastro-esophageal reflux disease without esophagitis; K64.9 Unspecified hemorrhoids; D72.819 Decreased white blood cell count, unspecified; I07.1 Rheumatic tricuspid insufficiency; R40.4 Transient alteration of awareness; I50.82 Biventricular heart failure; H35.30 Unspecified macular degeneration; I69.320 Aphasia following cerebral infarction; I11.0 Hypertensive heart disease with heart failure; E87.6 Hypokalemia; Z87.11 Personal history of peptic ulcer disease; Z95.0 Presence of cardiac pacemaker; Z79.01 Long term (current) use of anticoagulants; Z96.643 Presence of artificial hip joint, bilateral
CPT/HCPCS: 36415; 36430; 36511; 70450-TC; 71045-TC-FY; 74230-TC-FY; 80048; 80053; 81003; 82272; 82550; 82607; 82962; 83090; 83735; 84100; 84132; 84443; 84484; 85025; 85027; 85610; 85651; 85730; 86593; 86850; 86900; 86901; 86922; 92611-GN; 93005; 93010; 93306-TC; 93880-TC; 93970-TC; 94640; 97116-GP; 97162-GP; 99284-25; J1644; P9038; P9058

== ENCOUNTER 2018-09-15 16:53 | Emergency (ER) | payer OTHER ==
--- NOTE | 2018-09-15 16:57 | PDOC ---
History of Present Illness - General Chief Complaint: CVA/TIA Stated Complaint: POSSIBLE STROKE Time Seen by Provider: 09/15/18 16:56 - History of Present Illness Initial Comments: 87y M hx of afib (on Eliquis s/p PM placed approx 4 weeks ago), htn, hl, chf, cva (2010 and , hypothyroidism presents for altered mental status since 16:00 today with dysarthria, GI bleed, dysphagia and left upper extremity/ left lower extremity deficits with NIH stoke scale of 17 on presentation. Patient was completely functional, walking, and could complete all ADLs prior to today. No recent fevers, chills, nausea, vomiting, diarrhea, or other symptoms. 09/15/18 17:20 tPA Exclusion Checklist 0-3hr - Time Elapsed Date last known well: 09/15/18 Time last known well: 16:00 Elaspsed time: Day(s) and 3 Hour(s) and 4 Minutes - Thrombolytic Therapy Candidate Is the patient eligible for Thrombolytic Therapy?: No - Exclusion Criteria 0-3hr Recent IC/spinal surgery,head trauma or stroke w/in last 3mo: Yes - Ineligibility reason(s) Reasons No tPA given: See reason(s) noted above (On eliquis and stroke last week ) NIH Stroke Scale - Last Known Well Date/Time & Onset Date Last Known Well: 09/15/18 Time Last Known Well: 16:00 - Initial Evaluation Level of consciousness: Alert Ask patient the month and their age: Answers one correctly Ask patient to open & close eyes; make fist and let go: Obeys one correctly Best gaze (horizontal eye movement): Partial gaze palsy Visual field testing: Partial hemianopia Facial paresis (Show teeth/raise eyebrows/close eyes tight): Partial paralysis ( total or near paralysis of lower face) Motor Function: Left Arm: Normal Motor Function: Right Arm: Normal (extends arm 90 (or 45) degrees for 10 seconds without drift Motor Function: Left Leg: Some effort against gravity Motor Function: Right Leg: Some effort against gravity Limb Ataxia: Present in two limbs Sensory(Use pinprick test arms,legs,trunk,face/side to side): Mild to moderate decrease in sensation Best language (Describe picture, name items, read sentences): Mild to moderate aphasia Dysarthria (read several words): Near unintelligible or unable to speak Extinction and Inattention: Inattention or extinction bilaterally to one of the sensory modalities - Total Score NIH Stroke Scale Score: 17 Past History - Past Medical History Allergies/Adverse Reactions: Allergies Allergy/AdvReac Type Severity Reaction Status Date / Time No Known Allergies Allergy Verified 09/15/18 17:08 Home Medications: Ambulatory Orders Ascorbic Acid [Vitamin C] 500 mg PO DAILY 08/05/18 Atorvastatin Ca [Lipitor] 10 mg PO ASDIR 08/05/18 Beta-Carotene(A) W-C and E/Min [Ocuvite (Nf) -] 1 tab PO DAILY 08/05/18 Famotidine [Pepcid] 40 mg PO ASDIR 08/05/18 Ferrous Sulfate [Feosol] 325 mg PO DAILY 08/05/18 Furosemide [Lasix] 80 mg PO BID 08/05/18 Levothyroxine [Synthroid -] 100 mcg PO DAILY 08/05/18 Metolazone [Zaroxolyn -] 2.5 mg PO DAILY 08/05/18 Apixaban [Eliquis -] 2.5 mg PO BID #60 tablet 09/08/18 Metoprolol Tartrate [Lopressor -] 12.5 mg PO BID #60 tablet 09/08/18 Potassium Chloride [K-Dur -] 20 meq PO DAILY #30 tablet.er 09/08/18 Anemia: No Asthma: No Cancer: Yes (Skin) Cardiac Disorders: Yes (atrial fibrillation) CVA: Yes ([id number] weakness) COPD: No CHF: Yes Dementia: No Diabetes: No GI Disorders: No Disorders: No HTN: No Hypercholesterolemia: Yes Liver Disease: No Seizures: No Thyroid Disease: Yes - Surgical History Abdominal Surgery: Yes (Colon Resection) Appendectomy: No Cardiac Surgery: No Cholecystectomy: No GI Surgery: Yes (large intestine) Lung Surgery: Yes (Thorocentesis 10/2014) Neurologic Surgery: No Orthopedic Surgery: Yes (MAMIE HIP REPLACEMENT) - Suicide/Smoking/Psychosocial Hx Smoking History: Never smoked Have you smoked in the past 12 months: No Hx Alcohol Use: No Drug/Substance Use Hx: No Substance Use Type: None Hx Substance Use Treatment: No Review of Systems - Review of Systems Constitutional: No: Chills, Diaphoresis, Fever HEENTM: No: See HPI, Eye Pain, Blurred Vision Respiratory: No: Cough, Orthopnea, Shortness of Breath Cardiac (ROS): Yes: Irregular Heart Rate. No: Chest Pain, Edema ABD/GI: No: Constipated, Diarrhea, Nausea, Vomiting : No: Burning, Dysuria, Discharge, Frequency Musculoskeletal: No: Back Pain, Joint Pain, Joint Swelling, Muscle Pain Integumentary: No: Flushing, Lesions, Lumps Neurological: Yes: Numbness, Tingling, Tremors, Weakness. No: Headache Psychiatric: No: Anxiety, Depression Hematologic/Lymphatic: Yes: Blood Clots. No: Anemia, Easy Bleeding *Physical Exam - Physical Exam General Appearance: Yes: Nourished, Appropriately Dressed. No: Apparent Distress HEENT: positive: EOMI, ZAID. negative: Normal ENT Inspection (right sided facial droopwith dysarthria) Neck: positive: Trachea midline, Supple. negative: Tender, Rigid Respiratory/Chest: positive: Lungs Clear, Normal Breath Sounds. negative: Chest Tender, Respiratory Distress, Accessory Muscle Use Cardiovascular: positive: Irregularly Irregular. negative: Regular Rhythm, Regular Rate Gastrointestinal/Abdominal: positive: Normal Bowel Sounds, Flat, Soft. negative : Tender Lymphatic: negative: Adenopathy, Tenderness Musculoskeletal: positive: Decreased Range of Motion (right sided upper and lower extemity weakness). negative: Normal Inspection Extremity: positive: Normal Capillary Refill. negative: Normal Inspection, Normal Range of Motion, Tender Integumentary: positive: Normal Color, Dry, Warm Neurologic: positive: Alert. negative: laborer mine II-XII NML intact, Fully Oriented, Normal Mood/Affect, Normal Response, Motor Strength 5/5 ED Treatment Course - LABORATORY CBC & Chemistry Diagram: 09/15/18 17:09 09/15/18 17:09 Medical Decision Making - Medical Decision Making 87 year old with NIHSS 17 and ineligible for TPA because of recent stroke last week and relative contraindication of eliquis use/ GI bleed. Patient eligible for thrombectomy and discussed with Ximena of our neuro service, Dr. Beasley of [facility] service, and Dr. Tovar of the [facility] ED. 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 Dr. Beasley prepared the IR sweet and the team will intervene upon stat transfer there. Patient with stable VS on transfer. 09/15/18 18:56 *DC/Admit/Observation/Transfer Diagnosis at time of Disposition: Stroke Qualifiers: CVA mechanism: thrombosis Precerebral and cerebral artery: middle cerebral artery Laterality of affected vessel: left Qualified Code(s): I63.312 - Cerebral infarction due to thrombosis of left middle cerebral artery - Discharge Dispostion Disposition: TRANSFER ACUTE CARE/OTHER HOSP Condition at time of disposition: Stable Decision to Admit order: No - Referrals - Patient Instructions - Post Discharge Activity - Transfer to Acute Care Facility Receiving Facility: [facility]
[2018-09-15] MEDS ORDERED: SODIUM CHLORIDE 1,000 ML IV SCH (17:00)
[2018-09-15 17:08] VITALS: BMI 24.3
--- NOTE | 2018-09-15 17:32 | PDOC ---
Attending Attestation - Resident Resident Name: Julienne Mohr - ED Attending Attestation I have performed the following: I have examined & evaluated the patient, The case was reviewed & discussed with the resident, I agree w/resident's findings & plan, Exceptions are as noted - HPI HPI: 09/15/18 17:46 87 year old male with history of pacemaker, CHF, afib on eliquis, hypothyroidism , HLD, BPH, GI bleed hx, CVA with no residual deficits, anemia p/w right sided stroke. The patient was with his family. Witnessed last normal to be 4 pm. While sitting in chair, family noted that he was unable to speak. Was slurring his speech and unable to move right side. Called EMS. Pt denies pain, recent illnesses. Family does note that he did NOT have any deficits when he was admitted approximately 1.5 weeks ago for a right sided stroke. At that time, the patient did not obtain an MRI 2/2 pacemaker, but was deemed to have a stroke. Pt was switched to eliquis. Since then, has had no deficit and spoke without difficulty. Family noted that he developed these symptoms suddenly, even though he is adherent to his eliquis (last dose this morning). No recent illnesses, fevers, chills. Pt does some daily activities of living and walks with a walker. According to family, pt was doing well at home after discharge last week. - Physicial Exam PE: 09/15/18 17:37 ADULT EXAM GENERAL: Awake, alert, and fully oriented, in no acute distress HEAD: No signs of trauma EYES: EOMI, sclera anicteric, conjunctiva clear ENT: Auricles normal inspection, hearing grossly normal, nares patent,Moist mucosa NECK: Normal ROM, supple LUNGS: Breath sounds equal, clear to auscultation bilaterally. No wheezes, and no crackles HEART: Regular rate and rhythm, normal S1 and S2, no murmurs, rubs or gallops ABDOMEN: Soft, nontender, No guarding, no rebound. No masses EXTREMITIES: Normal range of motion, 3+ pitting edema bilaterally lower extremities No clubbing or cyanosis. No cords, erythema, or tenderness NEUROLOGICAL: R sided facial droop, +dysarthria, +expressive aphasia, 3/5 strength upper right and right lower. SKIN: Warm, Dry, normal turgor, no rashes or lesions noted. - Critical Care Time Total Critical Care Time: 60 Critical Care Statement: The care of this patient involved high complexity decision making to prevent further life threatening deterioration of the patient 's condition and/or to evaluate & treat vital organ system(s) failure or risk of failure. - Medical Decision Making 09/15/18 17:57 Vital Signs Temp Pulse Resp BP Pulse Ox 97.4 F L 72 16 109/68 99 09/15/18 17:38 09/15/18 17:38 09/15/18 17:38 09/15/18 17:38 09/15/18 17:38 Pt likely with left MCA stroke. CT head negative for acute stroke. Pt is ineligible for TPA given that he is on eliquis. However, pt is eligible for endovascular therapy. CTA brain and CTA neck ordered. Case discussed with Dr. Morro Azar at [facility] Pt with M1 occlusion. Pt will go to [facility] and accepted. Will transfer Stat. It is 6:35 pm, and code red team here. Pt will go to endovascular labs. CBC, BMP 09/15/18 17:09 CMP POC Glucometer [id number] UNITS (80-120) 09/15/18 17:22 Heart Score/ECG Review #1 ECG reviewed & interpreted by me at: 18:10 09/15/18 18:39 Wide QRS with complexes 114, RBBB, Q wave V1-V2, QTC 556 msec NIH Stroke Scale - Last Known Well Date/Time & Onset Date Last Known Well: 09/15/18 Time Last Known Well: 16:00 - Initial Evaluation Level of consciousness: Alert Ask patient the month and their age: Both incorrect Ask patient to open & close eyes; make fist and let go: Obeys both correctly Best gaze (horizontal eye movement): Forced deviation Visual field testing: No visual field loss Facial paresis (Show teeth/raise eyebrows/close eyes tight): Complete paralysis of one or both sides (Upper and lower face) Motor Function: Left Arm: Normal Motor Function: Right Arm: Some effort against gravity Motor Function: Left Leg: Normal (extends leg 30 degrees for 5 seconds without drift) Motor Function: Right Leg: No effort against gravity Limb Ataxia: No ataxia Sensory(Use pinprick test arms,legs,trunk,face/side to side): Severe to total sensory loss Best language (Describe picture, name items, read sentences): Mild to moderate aphasia Dysarthria (read several words): Near unintelligible or unable to speak Extinction and Inattention: Inattention or extinction bilaterally to one of the sensory modalities - Total Score NIH Stroke Scale Score: 18
[2018-09-15 17:47] LABS: BASO % 1.3 % (0-2.0); HEMATOCRIT 27.1 % (35.4-49); HEMOGLOBIN 9.5 GM/dL (11.7-16.9); LYMPH % 20.9 % (8-40); MCH 32.8 pg (25.7-33.7); MCHC 35.1 g/dl (32.0-35.9); MEAN CELL VOLUME 93.7 fl (80-96); MEAN PLT VOLUME 7.6 fl (7.5-11.1); NEUT % 68.8 % (42.8-82.8); PLATELET COUNT 257 K/MM3 (134-434); RBC 2.89 M/mm3 (4.00-5.60); RDW 20.3 % (11.9-15.9); WHITE BLOOD COUNT 3.3 K/mm3 (4.0-10.0)
[2018-09-15 18:01] LABS: INR 1.21 (0.83-1.09); PROTHROMBIN TIME (PATIENT) 14.3 SEC (9.7-13.0)
[2018-09-15 18:39] VITALS: BP 101/65; PULSE 107; TEMP 97.6
[2018-09-15 18:56] LABS: ALK PHOS 148 U/L (45-117); BLOOD UREA NITROGEN 30 mg/dL (7-18); CALCIUM 8.5 mg/dL (8.5-10.1); GLUCOSE,RANDOM 79 mg/dL (74-106)
[2018-09-15 18:57] LABS: ALBUMIN 3.2 g/dl (3.4-5.0); ANION GAP 9 MMOL/L (8-16); BILIRUBIN,TOTAL 0.5 mg/dL (0.2-1); CHLORIDE 91 mmol/L (98-107); CHOLESTEROL 125 mg/dL (50-200); CO2 35 mmol/L (21-32); CREATININE 1.3 mg/dL (0.55-1.3); HDL CHOLESTEROL 65 mg/dL (40-60); POTASSIUM 3.8 mmol/L (3.5-5.1); SGOT/AST 51 U/L (15-37); SGPT/ALT 34 U/L (13-61); SODIUM 136 mmol/L (136-145); TOT PROT 7.7 g/dl (6.4-8.2); TRIGLYCERIDES 44 mg/dL (0-150)
--- NOTE | 2018-09-16 09:20 | EKG ---
Test Reason : Blood Pressure : / mmHG Vent. Rate : 090 BPM Atrial Rate : 089 BPM P-R Int : 000 ms QRS Dur : 146 ms QT Int : 432 ms P-R-T Axes : 000 071 -58 degrees QTc Int : 528 ms POOR DATA QUALITY, INTERPRETATION MAY BE ADVERSELY AFFECTED ATRIAL FIBRILLATION WITH PREMATURE VENTRICULAR OR ABERRANTLY CONDUCTED COMPLEXES RIGHT BUNDLE BRANCH BLOCK ABNORMAL ECG Confirmed by HIMANSHU MICHELE, ASHLEY ([id number]) on 09/16/2018 9:20:27 AM Referred By: Confirmed By:ASHLEY DOWNS MD
== END 2018-09-15 18:40 | disposition short-term general hospital (02) ==
LOC: JER 16:53
PROC: 3E0337Z Introduction of Electrolytic and Water Balance Substance into Peripheral Vein, Percutaneous Approach (ICD-10-PCS; principal; 2018-09-15)
DX: I63.312 Cerebral infarction due to thrombosis of left middle cerebral artery (principal); I69.322 Dysarthria following cerebral infarction; I69.392 Facial weakness following cerebral infarction; I69.351 Hemiplegia and hemiparesis following cerebral infarction affecting right dominant side; I48.91 Unspecified atrial fibrillation; Z79.01 Long term (current) use of anticoagulants; I11.0 Hypertensive heart disease with heart failure; I50.9 Heart failure, unspecified; E78.5 Hyperlipidemia, unspecified; E03.9 Hypothyroidism, unspecified; Z95.0 Presence of cardiac pacemaker; Z86.73 Personal history of transient ischemic attack (TIA), and cerebral infarction without residual deficits
CPT/HCPCS: 36415; 70450-TC; 70496-TC; 70498-TC; 80053; 82465; 82550; 82962; 83718; 83721; 84478; 84484; 85025; 85610; 86850; 86900; 86901; 93005; 93010; 96360; 99285-25; J7030

== ENCOUNTER 2019-01-25 09:52 | Emergency (ER) | payer OTHER ==
[2019-01-25 10:25] VITALS: BP 128/55; PULSE 60; TEMP 97.8; BMI 23.6
--- NOTE | 2019-01-25 10:26 | PDOC ---
History of Present Illness - General Chief Complaint: Injury Stated Complaint: RIGHT ARM WOUNDS Time Seen by Provider: 01/25/19 10:05 - History of Present Illness Initial Comments: 01/25/19 10:27 87y M hx of afib (on Eliquis), htn, hl, chf, cva, hypothyroidism, presents with abrasion to right hand. Patient sustained a fall last week was not dizzy lightheaded there was no prior prodrome prior to the fall he simply fell because of unsteadiness from his previous strokes sustained 2 abrasions 1 to his dorsum of the right hand and one to the dorsal aspect of the midforearm. There is a skin avulsion to the midforearm and a healing abrasion to the hand. Over the last 2 days a slight redness has started to appear over the hand no fever no chills no systemic symptoms issue with no complaints at this time 01/25/19 10:34 Past History - Past Medical History Allergies/Adverse Reactions: Allergies Allergy/AdvReac Type Severity Reaction Status Date / Time No Known Allergies Allergy Verified 01/25/19 10:05 Home Medications: Ambulatory Orders Ascorbic Acid [Vitamin C] 500 mg PO DAILY 08/05/18 Beta-Carotene(A) W-C and E/Min [Ocuvite (Nf) -] 1 tab PO DAILY 08/05/18 Ferrous Sulfate [Feosol] 325 mg PO DAILY 08/05/18 Furosemide [Lasix] 80 mg PO BID 08/05/18 Levothyroxine [Synthroid -] 100 mcg PO DAILY 08/05/18 Apixaban [Eliquis] 5 mg PO BID 01/25/19 Calcium Carbonate/Vitamin D3 [Calcium 600 + Vit D Tablet] 1 each PO DAILY Cephalexin [Keflex] 500 mg PO BID 7 Days #14 capsule 01/25/19 Digoxin [Lanoxin -] 0.125 mg PO HS 01/25/19 Famotidine 20 mg PO BID 01/25/19 Magnesium Oxide [Magnesium] 400 mg PO HS 01/25/19 Metoprolol Tartrate [Lopressor -] 25 mg PO BID 01/25/19 Multivit-Min/FA/Lycopen/Lutein [Centrum Silver Men Tablet] 1 each PO DAILY 01/25 Potassium Chloride [K-Dur -] 40 meq PO TID 01/25/19 Anemia: Yes Asthma: No Cancer: Yes (Skin) Cardiac Disorders: Yes (atrial fibrillation, bradycardia) CVA: Yes ([id number] weakness) COPD: No CHF: Yes Dementia: No Diabetes: No GI Disorders: Yes (GI bleed) Disorders: Yes (Renal dysfunction, BPH) HTN: No Hypercholesterolemia: Yes Liver Disease: No Seizures: No Thyroid Disease: Yes (hypothyroid) Other medical history: hypokalemia, gait instability, macular degeneration - Surgical History Abdominal Surgery: Yes (Colon Resection) Appendectomy: No Cardiac Surgery: Yes (PPM) Cholecystectomy: No GI Surgery: Yes (large intestine) Lung Surgery: Yes (Thorocentesis 10/2014) Neurologic Surgery: No Orthopedic Surgery: Yes (MAMIE HIP REPLACEMENT) - Suicide/Smoking/Psychosocial Hx Smoking History: Never smoked Have you smoked in the past 12 months: No Hx Alcohol Use: No Drug/Substance Use Hx: No Substance Use Type: None Hx Substance Use Treatment: No Review of Systems - Review of Systems Comments:: 01/25/19 10:35 ROS: A complete review of 10 out of 10 review of systems is taken and is negative apart from what is previously mentioned below and in the HPI. *Physical Exam - Vital Signs Last Vital Signs Temp Pulse Resp BP Pulse Ox 97.8 F 60 20 128/55 L 99 01/25/19 09:59 01/25/19 09:59 01/25/19 09:59 01/25/19 09:59 01/25/19 09:59 - Physical Exam Comments: Vitals: Triage Vital signs reviewed General Appearance: no acute distress, well nourished well developed, Head: Atraumatic, Neck: Supple;No Nucal rigidity Chest Wall: Nontender Cardiac: Regular rate and rhythym, no murmurs, no rubs, no gallops, Lungs: Clear to auscultation bilateral, good air movement bilaterally, Abdomen: Soft, non distended, normal bowel sounds, non tender to palpation Extremities: Full range of motion to all extremities, no cyanosis, clubbing, or edema Skin: Warm and dry, abrasion with scab to dorsum of right hand with small area of surrounding redness approximately 3 cm x 3 cm. Skin avulsion to mid forearm well-healing no evidence of infection. Psych: normal mood, normal affect Medical Decision Making - Medical Decision Making 01/25/19 17:32 88 years old with very subtle cellulitis to right hand we'll start patient on Keflex. He will follow up with his doctor on Monday he will return to ED for any severe worsening symptoms or for any concerns Findings, the need for follow-up and strict return instructions discussed with patient. *DC/Admit/Observation/Transfer Diagnosis at time of Disposition: Abrasion - Discharge Dispostion Disposition: HOME Condition at time of disposition: Good - Prescriptions Prescriptions: Cephalexin [Keflex] 500 mg PO BID 7 Days #14 capsule - Referrals Referrals: Brian Polo MD [Primary Care Provider] - - Patient Instructions - Post Discharge Activity
[2019-01-25] MEDS ORDERED: DIPHTH,PERTUSS(ACELL),TET 0.5 ML DISP.SYRIN IM ONE ×2 (10:40→11:30)
== END 2019-01-25 10:55 | disposition home or self-care (01) ==
LOC: SUPCPDRO 09:52 → FER 09:52
PROC: 3E0234Z Introduction of Serum, Toxoid and Vaccine into Muscle, Percutaneous Approach (ICD-10-PCS; principal; 2019-01-25)
DX: S60.511A Abrasion of right hand, initial encounter (principal); S50.811A Abrasion of right forearm, initial encounter; W18.39XA Other fall on same level, initial encounter; Y93.89 Activity, other specified; Y92.89 Other specified places as the place of occurrence of the external cause; Y99.8 Other external cause status; I25.10 Atherosclerotic heart disease of native coronary artery without angina pectoris; I11.0 Hypertensive heart disease with heart failure; I50.9 Heart failure, unspecified; I48.91 Unspecified atrial fibrillation; Z79.01 Long term (current) use of anticoagulants; D64.9 Anemia, unspecified; E78.00 Pure hypercholesterolemia, unspecified; E03.9 Hypothyroidism, unspecified; N40.0 Benign prostatic hyperplasia without lower urinary tract symptoms; R26.89 Other abnormalities of gait and mobility; Z96.643 Presence of artificial hip joint, bilateral; Z95.0 Presence of cardiac pacemaker
CPT/HCPCS: 90715; 99282-25

== ENCOUNTER 2019-03-27 09:23 | Emergency (ER) | payer OTHER ==
[2019-03-27 09:38] VITALS: BP 128/73; PULSE 69; TEMP 97.7; BMI 22.9
[2019-03-27] MEDS ORDERED: BISACODYL 10 MG SUPP.RECT PR ONE (09:55)
--- NOTE | 2019-03-27 09:55 | PDOC ---
History of Present Illness - General Chief Complaint: Constipation Stated Complaint: constipation Time Seen by Provider: 03/27/19 09:26 - History of Present Illness Initial Comments: 03/27/19 11:33 Chief complaint: Constipation History of present illness: Patient unable to have normal bowel movement today. Usually regular. No nausea, vomiting, or abdominal pain. Does admit feeling a sense of fullness in the rectum. Review of systems: Noted a few drops of bright red blood this morning while straining. No other hematemesis melena or bloody stool. No chest pain, shortness of breath, abdominal pain, nausea, vomiting. No visual or focal neurologic symptoms. No lightheadedness or dizziness. Experienced diarrhea approximately one week ago for 1 or 2 days, this has resolved. Past medical history: Atrial fibrillation, on anticoagulant. CVA with mild right hemiparesis Social/family history: Lives with his , has a home health aide, ambulates with a walker, partial self-care. Physical exam: Alert and cooperative, no acute distress Afebrile, vital signs normal HEENT clear Neck supple without bruit mass or nodes Chest clear CV regular without murmur rub or gallop Abdomen nondistended. Bowel sounds normal. Soft without mass tenderness organomegaly. No CVAT Rectal exam: No hemorrhoids or fissures visible. No masses or tenderness on internal exam. There is a normal amount of soft, light brown stool which is guaiac negative. Neuro: Mild right hemiparesis, right lower facial, result of an old stroke, no change recently. Otherwise intact Impression: Constipation, no sign of impaction, bleeding most likely due to straining. Plan: Patient was administered Dulcolax suppository and magnesium citrate, and soon afterward had a normal bowel movement. Much more comfortable now. There were again several drops of bright red blood with the bowel movement but no blood in the stool. He is discharged in no pain or other distress with his , instructed to follow-up with his assistant hall director for colonoscopy, return to the emergency room if bleeding becomes more severe. Past History - Past Medical History Allergies/Adverse Reactions: Allergies Allergy/AdvReac Type Severity Reaction Status Date / Time No Known Allergies Allergy Verified 03/27/19 09:25 Home Medications: Ambulatory Orders Ascorbic Acid [Vitamin C] 500 mg PO DAILY 08/05/18 Beta-Carotene(A) W-C and E/Min [Ocuvite (Nf) -] 1 tab PO DAILY 08/05/18 Furosemide [Lasix] 80 mg PO BID 08/05/18 Levothyroxine [Synthroid -] 100 mcg PO DAILY 08/05/18 Apixaban [Eliquis] 5 mg PO BID 01/25/19 Calcium Carbonate/Vitamin D3 [Calcium 600 + Vit D Tablet] 1 each PO DAILY Digoxin [Lanoxin -] 0.125 mg PO HS 01/25/19 Famotidine 20 mg PO BID 01/25/19 Metoprolol Tartrate [Lopressor -] 25 mg PO BID 01/25/19 Multivit-Min/FA/Lycopen/Lutein [Centrum Silver Men Tablet] 1 each PO DAILY 01/25 Potassium Chloride [K-Dur -] 40 meq PO BID 01/25/19 Anemia: Yes Asthma: No Cancer: Yes (Skin) Cardiac Disorders: Yes (atrial fibrillation, bradycardia) CVA: Yes ([id number] weakness) COPD: No CHF: Yes Dementia: No Diabetes: No GI Disorders: Yes (GI bleed) Disorders: Yes (Renal dysfunction, BPH) HTN: No Hypercholesterolemia: Yes Liver Disease: No Seizures: No Thyroid Disease: Yes (hypothyroid) - Surgical History Abdominal Surgery: Yes (Colon Resection) Appendectomy: No Cardiac Surgery: Yes (PPM) Cholecystectomy: No GI Surgery: Yes (large intestine) Lung Surgery: Yes (Thorocentesis 10/2014) Neurologic Surgery: No Orthopedic Surgery: Yes (MAMIE HIP REPLACEMENT) - Suicide/Smoking/Psychosocial Hx Smoking History: Never smoked Have you smoked in the past 12 months: No Hx Alcohol Use: No Drug/Substance Use Hx: No Substance Use Type: None Hx Substance Use Treatment: No *Physical Exam - Vital Signs Last Vital Signs Temp Pulse Resp BP Pulse Ox 97.7 F 69 18 128/73 100 03/27/19 09:24 03/27/19 09:24 03/27/19 09:24 03/27/19 09:24 03/27/19 09:24 *DC/Admit/Observation/Transfer Diagnosis at time of Disposition: Constipation Qualifiers: Constipation type: unspecified constipation type Qualified Code(s): K59.00 - Constipation, unspecified - Discharge Dispostion Disposition: HOME Condition at time of disposition: Improved Decision to Admit order: No - Referrals - Patient Instructions Printed Discharge Instructions: DI for Constipation Additional Instructions: MiraLAX, increase fiber diet, adequate hydration, and exercise. See your assistant hall director to consider colonoscopy Return to ER if there is nausea, vomiting, or rectal bleeding. - Post Discharge Activity
[2019-03-27] MEDS ORDERED: BISACODYL 10 MG SUPP.RECT RC ONE (09:58)
[2019-03-27] MEDS ORDERED: MAGNESIUM CITRATE 300 ML BOTTLE PO ONE (10:32)
[2019-03-27] MEDS ORDERED: MAGNESIUM CITRATE 300 ML BOTTLE ONE (10:39)
== END 2019-03-27 11:35 | disposition home or self-care (01) ==
LOC: FER 09:23
DX: K59.00 Constipation, unspecified (principal); I48.91 Unspecified atrial fibrillation; I50.9 Heart failure, unspecified; N40.0 Benign prostatic hyperplasia without lower urinary tract symptoms; E78.00 Pure hypercholesterolemia, unspecified; E03.9 Hypothyroidism, unspecified; Z96.643 Presence of artificial hip joint, bilateral; Z86.73 Personal history of transient ischemic attack (TIA), and cerebral infarction without residual deficits
CPT/HCPCS: 36415; 82272; 99282-25

== ENCOUNTER 2019-08-20 14:39 | Emergency (ER) | payer OTHER ==
[2019-08-20 14:54] VITALS: BP 130/70; PULSE 61; TEMP 97.6; BMI 24.3
--- NOTE | 2019-08-20 16:12 | PDOC ---
Documentation entered by Priscilla Florez SCRIBE, acting as scribe for Ismael Benítez MD. Ismael Benítez MD: This documentation has been prepared by the Vikki hood Adrianna, SCRIBE, under my direction and personally reviewed by me in its entirety. I confirm that the documentation accurately reflects all work, treatment, procedures, and medical decision making performed by me. History of Present Illness - General Chief Complaint: Wound Stated Complaint: RIGHT ARM WOUND Time Seen by Provider: 08/20/19 14:40 - History of Present Illness Initial Comments: The patient is an 88 year old male, with a significant PMH of Afib (on Eliquis) , HTN, HLD, CHF, CVA, renal dysfunction, BPH, GI bleed, skin CA, anemia, and hypothyroidism, who presents to the ED for evaluation of abrasion. Patient notes he was exercising late afternoon yesterday, when he slipped and fell. He reports scraping his RUE secondary to his fall, at the right forearm. Patient endorses pain at the abrasion site, and continuous bleeding. He presents to the ED today as the abrasion has not stopped bleeding (patient is on Eliquis). Denies any other complaints at this time. Allergies: NKA, NKDA Surgical History: colon resection, PPM, thoracentesis, bilateral total hip replacements Social History: Denies EtOH, tobacco, or illicit drug use Past History - Past Medical History Allergies/Adverse Reactions: Allergies Allergy/AdvReac Type Severity Reaction Status Date / Time No Known Allergies Allergy Verified 08/20/19 14:40 Home Medications: Ambulatory Orders Ascorbic Acid [Vitamin C] 500 mg PO DAILY 08/05/18 Beta-Carotene(A) W-C and E/Min [Ocuvite (Nf) -] 1 tab PO DAILY 08/05/18 Furosemide [Lasix] 80 mg PO BID 08/05/18 Levothyroxine [Synthroid -] 100 mcg PO DAILY 08/05/18 Apixaban [Eliquis] 5 mg PO BID 01/25/19 Calcium Carbonate/Vitamin D3 [Calcium 600 + Vit D Tablet] 1 each PO DAILY Digoxin [Lanoxin -] 0.125 mg PO HS 01/25/19 Famotidine 20 mg PO BID 01/25/19 Metoprolol Tartrate [Lopressor -] 25 mg PO BID 01/25/19 Multivit-Min/FA/Lycopen/Lutein [Centrum Silver Men Tablet] 1 each PO DAILY 01/25 Potassium Chloride [K-Dur -] 40 meq PO BID 01/25/19 Anemia: Yes Asthma: No Cancer: Yes (Skin) Cardiac Disorders: Yes (atrial fibrillation, bradycardia) CVA: Yes ([id number] weakness) COPD: No CHF: Yes Dementia: No Diabetes: No GI Disorders: Yes (GI bleed) Disorders: Yes (Renal dysfunction, BPH) HTN: No Hypercholesterolemia: Yes Liver Disease: No Seizures: No Thyroid Disease: Yes (hypothyroid) - Surgical History Abdominal Surgery: Yes (Colon Resection) Appendectomy: No Cardiac Surgery: Yes (PPM) Cholecystectomy: No GI Surgery: Yes (large intestine) Lung Surgery: Yes (Thorocentesis 10/2014) Neurologic Surgery: No Orthopedic Surgery: Yes (MAMIE HIP REPLACEMENT) - Psycho Social/Smoking Cessation Hx Smoking History: Never smoked Have you smoked in the past 12 months: No Hx Alcohol Use: No Drug/Substance Use Hx: No Substance Use Type: None Hx Substance Use Treatment: No Review of Systems - Review of Systems Comments:: GENERAL/CONSTITUTIONAL: No fever or chills. No weakness. HEAD, EYES, EARS, NOSE AND THROAT: No change in vision. No ear pain or discharge. No sore throat. CARDIOVASCULAR: No chest pain or shortness of breath. RESPIRATORY: No cough, wheezing, or hemoptysis. GASTROINTESTINAL: No nausea, vomiting, diarrhea or constipation. GENITOURINARY: No dysuria, frequency, or change in urination. MUSCULOSKELETAL: +RUE abrasion, with pain and continual bleeding at the right forearm. No joint or muscle swelling. No neck or back pain. SKIN: No rash NEUROLOGIC: No headache, vertigo, loss of consciousness, or change in strength/ sensation. ENDOCRINE: No increased thirst. No abnormal weight change. HEMATOLOGIC/LYMPHATIC: +On Eliquis daily. No history of blood clots. ALLERGIC/IMMUNOLOGIC: No hives or skin allergy. *Physical Exam - Vital Signs Last Vital Signs Temp Pulse Resp BP Pulse Ox 97.6 F 61 19 130/70 95 08/20/19 14:40 08/20/19 14:40 08/20/19 14:40 08/20/19 14:40 08/20/19 14:40 - Physical Exam Comments: GENERAL: Awake, alert, and fully oriented, in no acute distress HEAD: No signs of trauma EYES: PERRLA, EOMI, sclera anicteric, conjunctiva clear ENT: Auricles normal inspection, hearing grossly normal, nares patent, oropharynx clear without exudates. Moist mucosa NECK: Normal ROM, supple, no lymphadenopathy, JVD, or masses. No signs of trauma. LUNGS: Breath sounds equal, clear to auscultation bilaterally. No wheezes, and no crackles HEART: Regular rate and rhythm, normal S1 and S2, no murmurs, rubs or gallops ABDOMEN: Soft, nontender, normoactive bowel sounds. No guarding, no rebound. No masses or signs of trauma. EXTREMITIES: Normal range of motion, no edema. No clubbing or cyanosis. No cords. No distal sensory or motor deficits of the right upper extremity. Pulses are full. NEUROLOGICAL: Cranial nerves II through XII grossly intact. Normal speech, normal gait SKIN: +8 sonometer skin tear with skin avulsion of the right forearm. No deep penetrating wounds or lacerations. The base of the wound appears clean and dry with good granulation tissue. There is no swelling or deformity that might suggest fracture or other bony/soft tissue injury. Warm, Dry, normal turgor, no rashes noted. Medical Decision Making - Medical Decision Making 08/20/19 17:14 Large skin tear of the right forearm sustained last night. Persistent oozing due to anticoagulant therapy. No deep punctures or lacerations. No swelling or deformity suggestive of a fracture. Full range of motion of the elbow without limitation. Pulses full. No distal sensory or motor deficits Wound was thoroughly irrigated with saline, hemostasis with pressure, antibiotic ointment, nonstick dressing, French gauze, and Lex with mild compression for bleeding control. Follow-up wound check in 2 days. Comfortable , fully ambulatory at discharge. No distal pain numbness or tingling and good capillary refill. Discharge - Discharge Information Problems reviewed: Yes Clinical Impression/Diagnosis: Skin tear Condition: Improved Disposition: HOME - Admission No - Follow up/Referral - Patient Discharge Instructions Patient Printed Discharge Instructions: DI for Abrasion Additional Instructions: Keep wound clean and dry. Dressing in 2 days. Return to ER if there is persistent bleeding or sign of infection such as increased pain, redness, swelling, or wound drainage. - Post Discharge Activity
== END 2019-08-20 16:14 | disposition home or self-care (01) ==
LOC: FER 14:39
DX: S40.811A Abrasion of right upper arm, initial encounter (principal); W18.39XA Other fall on same level, initial encounter; Y93.89 Activity, other specified; Y92.89 Other specified places as the place of occurrence of the external cause; Z79.01 Long term (current) use of anticoagulants; I48.91 Unspecified atrial fibrillation; I10 Essential (primary) hypertension; E78.5 Hyperlipidemia, unspecified; I50.9 Heart failure, unspecified; N40.0 Benign prostatic hyperplasia without lower urinary tract symptoms; K92.2 Gastrointestinal hemorrhage, unspecified; N28.9 Disorder of kidney and ureter, unspecified; Z96.643 Presence of artificial hip joint, bilateral
CPT/HCPCS: 99282-25

== ENCOUNTER 2019-08-22 12:31 | Emergency (ER) | payer OTHER ==
[2019-08-22 12:46] VITALS: BP 129/72; PULSE 83; TEMP 97.4; BMI 24.3
--- NOTE | 2019-08-22 12:53 | PDOC ---
History of Present Illness - General Chief Complaint: Wound Stated Complaint: WOUND CHECK Time Seen by Provider: 08/22/19 12:38 History Source: Patient, Spouse Exam Limitations: No Limitations - History of Present Illness Initial Comments: 88 year old male with PMH HTN, atrial fibrillation on Eliquis, HLD, CHF, CVA, renal dysfunction, BPH, GI bleed, skin CA, anemia, and hypothyroidism presented to ED for wound check of abrasion to right upper arm after fall Monday. Pt reported he was doing exercises on a soft rug, and then accidentally fell to the ground, hitting his arm on something, causing it to bleed. Pt was seen at this ED, discharged after wound cleansing and wrapping. Pt reported he has had no issues with the wound. Pt denied head injury, LOC, vomiting, prodromal chest pain, prodromal shortness of breath, prodromal lightheadedness. Post fall pt denied chest pain, shortness of breath, headache, neck pain, back pain, abdominal pain, lower extremity pain. Last tetanus 01/25/19 per at bedside. ROS General: denied fever, chills, generalized weakness. HEENT: denied sore throat, rhinorrhea, ear pain. Cardiovascular: denied chest pain, palpitations, syncope, diaphoresis. Respiratory: denied shortness of breath, cough, sputum production, hemoptysis. Gastrointestinal: denied abdominal pain, nausea, vomiting, diarrhea, constipation, blood in stool. Genitourinary: denied dysuria, increased urinary frequency, hematuria, urinary incontinence, flank pain. Back: denied back pain. Musculoskeletal: denied joint pain, muscle pain, joint swelling. Neurological: denied headache, dizziness, numbness, tingling, weakness. Integumentary: admitted to laceration. denied rash, abrasion. Hematologic/Lymphatic: denied bruising or bleeding. PE Constitutional: Well-nourished, Well-developed, appearing stated age. Airway: intact Breathing: bilateral breath sounds Circulation: 2+ carotid pulse B/L HEENT: head is normocephalic, atraumatic. No facial bones tenderness to palpation. No bailey sign. No raccoon eyes. EOMI. PERRLA. Neck: supple. Full ROM. no midline c-spine tenderness to palpation. No step offs. Cardiovascular: regular heart rhythm. no murmurs. no pericardial friction rub. Chest wall: no seatbelt sign. No tenderness to palpation of anterior chest wall. No deformity to anterior chest wall. Respiratory: clear to auscultation bilaterally. no crackles, rhonchi or wheezing. no stridor. Gastrointestinal: soft, nontender. normal bowel sounds. no rebound, guarding, masses. No ecchymoses. Back: no midline T-spine or L-spine tenderness to palpation. No step offs. Pelvis: lower extremities equal in length without external rotation. No hip tenderness to palpation. Extremities: 4x6 cm superficial skin tear, minimal active bleeding. peripheral pulses intact. no lower extremity edema. Neurological: CN 2-12 grossly intact. moves all four extremities. Psych: awake, alert, oriented x3. follows commands. answers questions appropriately. Past History - Past Medical History Allergies/Adverse Reactions: Allergies Allergy/AdvReac Type Severity Reaction Status Date / Time No Known Allergies Allergy Verified 08/20/19 14:40 Home Medications: Ambulatory Orders Ascorbic Acid [Vitamin C] 500 mg PO DAILY 08/05/18 Beta-Carotene(A) W-C and E/Min [Ocuvite (Nf) -] 1 tab PO DAILY 08/05/18 Furosemide [Lasix] 80 mg PO BID 08/05/18 Levothyroxine [Synthroid -] 100 mcg PO DAILY 08/05/18 Apixaban [Eliquis] 5 mg PO BID 01/25/19 Calcium Carbonate/Vitamin D3 [Calcium 600 + Vit D Tablet] 1 each PO DAILY Digoxin [Lanoxin -] 0.125 mg PO HS 01/25/19 Famotidine 20 mg PO BID 01/25/19 Metoprolol Tartrate [Lopressor -] 25 mg PO BID 01/25/19 Multivit-Min/FA/Lycopen/Lutein [Centrum Silver Men Tablet] 1 each PO DAILY 01/25 Potassium Chloride [K-Dur -] 40 meq PO BID 01/25/19 Anemia: Yes Asthma: No Cancer: Yes (Skin) Cardiac Disorders: Yes (atrial fibrillation, bradycardia) CVA: Yes ([id number] weakness) COPD: No CHF: Yes Dementia: No Diabetes: No GI Disorders: Yes (GI bleed) Disorders: Yes (Renal dysfunction, BPH) HTN: No Hypercholesterolemia: Yes Liver Disease: No Seizures: No Thyroid Disease: Yes (hypothyroid) - Surgical History Abdominal Surgery: Yes (Colon Resection) Appendectomy: No Cardiac Surgery: Yes (PPM) Cholecystectomy: No GI Surgery: Yes (large intestine) Lung Surgery: Yes (Thorocentesis 10/2014) Neurologic Surgery: No Orthopedic Surgery: Yes (MAMIE HIP REPLACEMENT) - Psycho Social/Smoking Cessation Hx Smoking History: Never smoked Have you smoked in the past 12 months: No Information on smoking cessation initiated: No Hx Alcohol Use: No Drug/Substance Use Hx: No Substance Use Type: None Hx Substance Use Treatment: No *Physical Exam - Vital Signs Last Vital Signs Temp Pulse Resp BP Pulse Ox 97.4 F L 83 20 129/72 97 08/22/19 12:32 08/22/19 12:32 08/22/19 12:32 08/22/19 12:32 08/22/19 12:32 Medical Decision Making - Medical Decision Making 88 year old male with above PMH presented to ED for wound check of skin tear s/ p mechanical fall Monday. Pt reported no complaints since prior visit. Initial Vital Signs Temp Pulse Resp BP Pulse Ox 97.4 F L 83 20 129/72 97 08/22/19 12:32 08/22/19 12:32 08/22/19 12:32 08/22/19 12:32 08/22/19 12:32 Afebrile. No tachycardia. No tachypnea. No hypotension. No hypoxia on room air. Labs ordered: none Imaging ordered: none Medications ordered: topical lidocaine Topical epinephrine applied to wound with compression. 08/22/19 14:10 Wound exhibited no bleeding, wound covered with bacitracin. Pt advised to not cover with gauze, as it will stick and cause bleeding when removed, pt requesting gauze just so he can wear his jacket home. Pt advised to remove the dressing when he gets home, or to lather on bacitracin and change the dressing every 6 hours. Pt discharged. Discharge - Discharge Information Problems reviewed: Yes Clinical Impression/Diagnosis: Skin tear Condition: Stable Disposition: HOME - Admission No - Follow up/Referral Referrals: Brian Polo MD [Primary Care Provider] - - Patient Discharge Instructions Additional Instructions: You may shower and get the wound wet, let the water run down, there is no need to scrub or apply soap. Apply bacitracin to the wound daily. It is not advised to cover with gauze, as this will stick to the wound and may bleed when removed. If you do cover the wound with gauze it needs to be over a thick layer of bacitracin and needs to be changed every 6 hours so it does not stick. Follow up with your primary care doctor within 3 days. Your care is not complete until you follow up. Return to the Emergency Department for increasing pain, inability to stop bleeding, vomiting, fever, redness to the area, chest pain, shortness of breath , or any other new, worsening or concerning symptoms. Take Tylenol over the counter for pain. Take as advised on label. - Post Discharge Activity
--- NOTE | 2019-08-22 12:58 | PDOC ---
Attending Attestation - Resident Resident Name: Shahnaz Parsons - ED Attending Attestation I have performed the following: I have examined & evaluated the patient, The case was reviewed & discussed with the resident, I agree w/resident's findings & plan, Exceptions are as noted - HPI HPI: 08/22/19 12:56 88y M hx of afib on eliquis presents for a wound check. Patient had fallen and debrided his skin from his left arm. Came for wound check today patient denies any other complaints but notes that has been oozing since then. he denies any lightheadedness, shortness of breath, cp, palpitations - Physicial Exam PE: 08/22/19 13:14 exam: general: no acute distress rUE: Upper arm reveals a large Area of skin avulsion. It is clean there is no erythema, or induration noted. It is still very slowly oozing blood. - Medical Decision Making 08/22/19 13:15 Patient's wound appears well with some granulation tissue, still has very slow oozing of blood from 1 or two areas. No signs of superinfection Attempted to apply pressure however is still minimally oozing will apply some epinephrine topically 08/22/19 14:11 oozing stopped with epi will apply bacitracin and dress it for the trip home will recommend pt keep it open as concern for oozing with clot disruption with dressing removal return precautions were dsicussed
[2019-08-22] MEDS ORDERED: EPINEPHrine 1:1,000 - 30 MG/30 ML VIAL SQ ONE ×2 (13:16→13:35)
[2019-08-22] MEDS ORDERED: EPINEPHrine/PF 1 MG/1 ML (1:1,000) AMPULE ONE (13:37)
== END 2019-08-22 14:38 | disposition home or self-care (01) ==
LOC: FER 12:31
DX: Z48.00 Encounter for change or removal of nonsurgical wound dressing (principal)
CPT/HCPCS: 99282-25

== ENCOUNTER 2020-09-09 06:30 | Inpatient (IN) | payer OTHER ==
[2020-09-09] MEDS ORDERED: SODIUM CHLORIDE 1,000 ML IV ONE (06:49)
[2020-09-09] MEDS ORDERED: ACETAMINOPHEN INJECTION 100 ML IVPB ONE (07:18)
[2020-09-09 07:54] LABS: ALBUMIN 3.6 g/dl (3.4-5.0); BILIRUBIN,TOTAL 2.5 mg/dl (0.2-1); CALCIUM 8.6 mg/dl (8.5-10); CREATININE 1.6 mg/dl (0.55-1.3); POTASSIUM 4.6 mmol/L (3.5-5.1); TOT PROT 8.3 g/dl (6.4-8.2)
[2020-09-09 07:57] LABS: HEMOGLOBIN 12.1 GM/dl (11.7-16.9); MCH 33.2 pg (25.7-33.7); MCHC 32.8 g/dl (32.0-35.9); PLATELET COUNT 190 K/MM3 (134-434); RBC 3.66 M/mm3 (4.00-5.60); RDW 17.5 % (11.9-15.9); WHITE BLOOD COUNT 9.3 K/mm3 (4.0-10.8)
[2020-09-09 08:03] LABS: ADD RBC MORPHOLOGY YES
[2020-09-09] MEDS ORDERED: ACETAMINOPHEN 1000 MG/100 ML VIAL (NON FORMULARY) IVPB ONE (08:32)
[2020-09-09 08:41] LABS: INR 2.65 (0.82-1.09); PROTHROMBIN TIME (PATIENT) 27.8 SEC (10.2-13.0)
[2020-09-09] MEDS ORDERED: SODIUM CHLORIDE 1,000 ML IV SCH ×2 (08:45→14:26)
[2020-09-09 09:06] LABS: VENOUS BASE EXCESS 6.4 mmol/L (-2-2); VENOUS O2 SATURATION 38.7 % (70-80); VENOUS PCO2 54.8 mmHg (38-52); VENOUS PH 7.383 (7.310-7.410)
[2020-09-09 09:16] LABS: ANISOCYTOSIS 2+; PLATELET ESTIMATE ADEQUATE
[2020-09-09] MEDS ORDERED: cefTRIAXone SODIUM 1 GM VIAL ONE (09:45)
[2020-09-09] MEDS ORDERED: AZITHROMYCIN 500 MG VIAL IVPB ONE (09:45)
[2020-09-09] MEDS ORDERED: APIXABAN 5 MG TABLET PO SCH (10:00)
[2020-09-09] MEDS ORDERED: FUROSEMIDE 40 MG TABLET (FP) PO SCH (10:00)
[2020-09-09] MEDS ORDERED: CEFTRIAXONE 1 GM in DEXTROSE 5%-WATER - 50 ML IVPB SCH (10:00)
[2020-09-09] MEDS ORDERED: METOPROLOL TARTRATE 25 MG TABLET (FP) PO SCH (10:00)
[2020-09-09] MEDS ORDERED: ACETAMINOPHEN 1000 MG/100 ML VIAL (NON FORMULARY) IVPB PRN (10:05)
[2020-09-09] MEDS: AZITHROMYCIN IVPB 500 MG/250 ML BAG IVPB SCH (10:19)
[2020-09-09 10:46] LABS: EPITHELIAL CELLS MODERATE /hpf
[2020-09-09] MEDS ORDERED: DEXAMETHASONE SOD PHOSPHATE 4 MG/1 ML VIAL IVPUSH ONE (11:15)
[2020-09-09] MEDS ORDERED: ALBUTEROL SO4 2.5/IPRATROPIUM 0.5 INH SOL 3 ML VIAL.NEB. NEB ONE (12:48)
[2020-09-09 15:30] LABS: ARTERIAL BLD GAS O2 SATURATION 99.3 mmHg (95-98); ARTERIAL BLOOD GAS BASE EXCESS 1.8 mmol/L (-2-2); ARTERIAL BLOOD GAS PO2 180.7 mmHg (80-100); ARTERIAL BLOOD GAS pH 7.469 (7.350-7.450)
[2020-09-09 15:32] LABS: ALLENS TEST POSITIVE
[2020-09-09] MEDS ORDERED: DEXTROSE 5%-WATER - 50 ML IVPB ONE (18:03)
[2020-09-09] MEDS ORDERED: SODIUM CHLORIDE 0.9% 500 ML INFUS.BAG IV ONE (18:03)
[2020-09-09] MEDS ORDERED: PIPERACILLIN/TAZOBACTAM 3.375 GM VIAL IVPB ONE (18:03)
[2020-09-09] MEDS: PIPERACILLIN/TAZOB 3.375 GM 3.375 GM in DEXTROSE 5%-WATER - 50 ML IVPB SCH (18:08)
[2020-09-09] MEDS: DIGOXIN 0.125 MG TABLET (FP) PO SCH (23:15)
[2020-09-09] MEDS: POTASSIUM CHLORIDE TABS 20 MEQ TABLET.ER (FP) PO SCH (23:15)
[2020-09-09] MEDS: FAMOTIDINE 20 MG TABLET PO SCH (23:15)
[2020-09-09] MEDS: SODIUM CHLORIDE 1,000 ML IV SCH (23:16)
[2020-09-09] MEDS: CHLORHEXIDINE GLUCONATE 4% CLEANSER FOR DECOLONIZATION TP SCH (23:16)
[2020-09-09] MEDS: MUPIROCIN 2% TOPICAL OINTMENT FOR DECOLONIZATION NS SCH (23:16)
[2020-09-10] MEDS: PIPERACILLIN/TAZOB 3.375 GM 3.375 GM in DEXTROSE 5%-WATER - 50 ML IVPB SCH ×3 (02:19→17:53)
[2020-09-10] MEDS ORDERED: DEXTROSE 5%-WATER - 50 ML IVPB ONE ×3 (05:15→15:57)
[2020-09-10] MEDS ORDERED: PIPERACILLIN/TAZOBACTAM 3.375 GM VIAL IVPB ONE ×3 (05:15→15:57)
[2020-09-10] MEDS: SODIUM CHLORIDE 1,000 ML IV SCH ×2 (05:21→19:50)
[2020-09-10] MEDS ORDERED: METOLAZONE 2.5 MG TABLET (FP) PO SCH (05:30)
[2020-09-10] MEDS ORDERED: SODIUM CHLORIDE 1,000 ML IV STA (06:41)
[2020-09-10] MEDS: LEVOTHYROXINE NA 100 MCG TABLET (FP) PO SCH (06:47)
[2020-09-10 07:57] LABS: ALBUMIN 2.7 g/dl (3.4-5.0); BILIRUBIN,TOTAL 2.3 mg/dL (0.2-1); BLOOD UREA NITROGEN 44.6 mg/dL (7-18); CALCIUM 7.9 mg/dL (8.5-10.1); CREATININE 1.6 mg/dL (0.55-1.3); MAGNESIUM 2.3 mg/dL (1.8-2.4); PHOSPHOROUS 3.8 mg/dL (2.5-4.9); TOT PROT 7.2 g/dl (6.4-8.2)
[2020-09-10 08:29] LABS: BASO % 0.1 % (0-2.0); EOS % 0.7 % (0-4.5); HEMATOCRIT 37.5 % (35.4-49); HEMOGLOBIN 12.3 GM/dL (11.7-16.9); LYMPH % 0.9 % (8-40); MCH 33.3 pg (25.7-33.7); MCHC 32.8 g/dl (32.0-35.9); MEAN CELL VOLUME 101.6 fl (80-96); MEAN PLT VOLUME 8.3 fl (7.5-11.1); MONO % 0.6 % (3.8-10.2); NEUT % 97.7 % (42.8-82.8); PLATELET COUNT 159 K/MM3 (134-434); RBC 3.69 M/mm3 (4.00-5.60); RDW 18.6 % (11.9-15.9); WHITE BLOOD COUNT 11.6 K/mm3 (4.0-10.0)
[2020-09-10] MEDS: VASOPRESSIN 40 UNITS in SODIUM CHLORIDE 98 ML IVPB SCH (09:00)
[2020-09-10] MEDS ORDERED: VANCOMYCIN 1 GM in D5W (PRE-DOCKED) 1,000 MG/250 ML IVPB ONE (09:00)
[2020-09-10] MEDS ORDERED: VANCOMYCIN HCL 1,250 MG in DEXTROSE 5%-WATER - 250 ML IVPB ONE (09:38)
[2020-09-10] MEDS ORDERED: ALBUTEROL SO4 HFA INHALER IH PRN (09:48)
[2020-09-10 10:08] LABS: ANISOCYTOSIS 1+; MACROCYTOSIS 1+; PLATELET ESTIMATE DECREASED
[2020-09-10] MEDS: FAMOTIDINE 20 MG TABLET PO SCH ×2 (10:12→22:16)
[2020-09-10] MEDS: AZITHROMYCIN IVPB 500 MG/250 ML BAG IVPB SCH (10:12)
[2020-09-10] MEDS: POTASSIUM CHLORIDE TABS 20 MEQ TABLET.ER (FP) PO SCH (10:13)
[2020-09-10] MEDS: MUPIROCIN 2% TOPICAL OINTMENT FOR DECOLONIZATION NS SCH ×2 (10:13→22:20)
[2020-09-10] MEDS: APIXABAN 5 MG TABLET PO SCH ×2 (10:14→22:15)
[2020-09-10] MEDS ORDERED: DEXAMETHASONE SOD PHOSPHATE 10 MG/1 ML VIAL IVPUSH ONE (13:02)
[2020-09-10] MEDS: NOREPINEPHRINE BITARTRATE 8,000 MCG/500 ML BAG IVPB SCH (15:00)
[2020-09-10] MEDS: DIGOXIN 0.125 MG TABLET (FP) PO SCH (22:16)
[2020-09-10] MEDS: CHLORHEXIDINE GLUCONATE 4% CLEANSER FOR DECOLONIZATION TP SCH (22:30)
[2020-09-11] MEDS ORDERED: DEXTROSE 5%-WATER - 50 ML IVPB ONE ×3 (02:46→16:50)
[2020-09-11] MEDS ORDERED: PIPERACILLIN/TAZOBACTAM 3.375 GM VIAL IVPB ONE ×3 (02:46→16:49)
[2020-09-11] MEDS: PIPERACILLIN/TAZOB 3.375 GM 3.375 GM in DEXTROSE 5%-WATER - 50 ML IVPB SCH ×3 (02:48→17:06)
[2020-09-11] MEDS ORDERED: PT OWN MED DRAWER 7, Y5N ONE ×2 (06:23→09:13)
[2020-09-11 07:22] LABS: HEMATOCRIT 35.2 % (35.4-49); HEMOGLOBIN 11.6 GM/dL (11.7-16.9); MCH 32.7 pg (25.7-33.7); MEAN CELL VOLUME 98.9 fl (80-96); MEAN PLT VOLUME 7.7 fl (7.5-11.1); PLATELET COUNT 199 K/MM3 (134-434); RBC 3.55 M/mm3 (4.00-5.60); RDW 18.4 % (11.9-15.9); WHITE BLOOD COUNT 14.1 K/mm3 (4.0-10.0)
[2020-09-11 07:35] LABS: POTASSIUM 3.8 mmol/L (3.5-5.1)
[2020-09-11 07:47] LABS: ALBUMIN 2.3 g/dl (3.4-5.0)
[2020-09-11 07:48] LABS: BILIRUBIN,TOTAL 1.6 mg/dL (0.2-1); MAGNESIUM 2.3 mg/dL (1.8-2.4)
[2020-09-11 07:49] LABS: TOT PROT 6.6 g/dl (6.4-8.2)
[2020-09-11 07:50] LABS: CREATININE 1.3 mg/dL (0.55-1.3)
[2020-09-11 07:51] LABS: PHOSPHOROUS 3.2 mg/dL (2.5-4.9)
[2020-09-11] MEDS: AZITHROMYCIN IVPB 500 MG/250 ML BAG IVPB SCH (09:20)
[2020-09-11] MEDS: APIXABAN 5 MG TABLET PO SCH ×2 (09:21→22:34)
[2020-09-11] MEDS: FAMOTIDINE 20 MG TABLET PO SCH ×2 (09:25→22:34)
[2020-09-11] MEDS: MUPIROCIN 2% TOPICAL OINTMENT FOR DECOLONIZATION NS SCH ×2 (09:41→22:34)
[2020-09-11] MEDS: LEVOTHYROXINE NA 100 MCG TABLET (FP) PO SCH (12:37)
[2020-09-11] MEDS: VANCOMYCIN HCL 1,250 MG in DEXTROSE 5%-WATER - 250 ML IVPB SCH (12:38)
[2020-09-11] MEDS: CHLORHEXIDINE GLUCONATE 4% CLEANSER FOR DECOLONIZATION TP SCH (22:34)
[2020-09-11] MEDS: DIGOXIN 0.125 MG TABLET (FP) PO SCH (22:35)
[2020-09-12] MEDS ORDERED: PIPERACILLIN/TAZOBACTAM 3.375 GM VIAL IVPB ONE ×5 (02:34→21:33)
[2020-09-12] MEDS ORDERED: DEXTROSE 5%-WATER - 50 ML IVPB ONE ×5 (02:34→21:33)
[2020-09-12] MEDS: PIPERACILLIN/TAZOB 3.375 GM 3.375 GM in DEXTROSE 5%-WATER - 50 ML IVPB SCH ×3 (02:42→17:34)
[2020-09-12 07:28] LABS: HEMATOCRIT 33.9 % (35.4-49); HEMOGLOBIN 11.2 GM/dL (11.7-16.9); MCH 32.7 pg (25.7-33.7); MCHC 33.2 g/dl (32.0-35.9); MEAN CELL VOLUME 98.4 fl (80-96); MEAN PLT VOLUME 7.8 fl (7.5-11.1); PLATELET COUNT 169 K/MM3 (134-434); RBC 3.44 M/mm3 (4.00-5.60); RDW 18.6 % (11.9-15.9); WHITE BLOOD COUNT 11.9 K/mm3 (4.0-10.0)
[2020-09-12] MEDS: LEVOTHYROXINE NA 100 MCG TABLET (FP) PO SCH (07:36)
[2020-09-12 07:58] LABS: POTASSIUM 3.4 mmol/L (3.5-5.1)
[2020-09-12 08:04] LABS: ALBUMIN 2.1 g/dl (3.4-5.0); BLOOD UREA NITROGEN 42.7 mg/dL (7-18); CALCIUM 8.2 mg/dL (8.5-10.1); MAGNESIUM 2.5 mg/dL (1.8-2.4)
[2020-09-12 08:07] LABS: CREATININE 1.1 mg/dL (0.55-1.3); PHOSPHOROUS 2.3 mg/dL (2.5-4.9)
[2020-09-12 08:08] LABS: BILIRUBIN,TOTAL 1.1 mg/dL (0.2-1); TOT PROT 6.4 g/dl (6.4-8.2)
[2020-09-12] MEDS: FAMOTIDINE 20 MG TABLET PO SCH ×2 (10:09→21:42)
[2020-09-12] MEDS: APIXABAN 5 MG TABLET PO SCH ×2 (10:09→21:42)
[2020-09-12] MEDS ORDERED: PT OWN MED DRAWER 7, Y5N ONE (10:11)
[2020-09-12] MEDS: AZITHROMYCIN IVPB 500 MG/250 ML BAG IVPB SCH (10:17)
[2020-09-12] MEDS: MUPIROCIN 2% TOPICAL OINTMENT FOR DECOLONIZATION NS SCH ×2 (10:17→21:43)
[2020-09-12] MEDS: VANCOMYCIN HCL 1,250 MG in DEXTROSE 5%-WATER - 250 ML IVPB SCH (10:31)
[2020-09-12] MEDS ORDERED: POTASSIUM CHLORIDE TABS 20 MEQ TABLET.ER (FP) PO SCH (16:30)
[2020-09-12] MEDS: KCL 10 MEQ IVPB 10 MEQ/100 ML INFUS.BAG IVPB SCH ×2 (16:33→17:34)
[2020-09-12] MEDS: CHLORHEXIDINE GLUCONATE 4% CLEANSER FOR DECOLONIZATION TP SCH (21:43)
[2020-09-12] MEDS: DIGOXIN 0.125 MG TABLET (FP) PO SCH (21:48)
[2020-09-12] MEDS: VASOPRESSIN 40 UNITS in SODIUM CHLORIDE 98 ML IVPB SCH (23:32)
[2020-09-12] MEDS: NOREPINEPHRINE BITARTRATE 8,000 MCG/500 ML BAG IVPB SCH ×2 (23:32→23:33)
[2020-09-13] MEDS: PIPERACILLIN/TAZOB 3.375 GM 3.375 GM in DEXTROSE 5%-WATER - 50 ML IVPB SCH ×3 (02:00→17:04)
[2020-09-13] MEDS: LEVOTHYROXINE NA 100 MCG TABLET (FP) PO SCH (06:40)
[2020-09-13 08:32] LABS: POTASSIUM 3.5 mmol/L (3.5-5.1)
[2020-09-13 08:34] LABS: HEMATOCRIT 32.7 % (35.4-49); HEMOGLOBIN 10.9 GM/dL (11.7-16.9); MCH 32.9 pg (25.7-33.7); MCHC 33.4 g/dl (32.0-35.9); MEAN CELL VOLUME 98.7 fl (80-96); MEAN PLT VOLUME 7.9 fl (7.5-11.1); PLATELET COUNT 140 K/MM3 (134-434); RBC 3.31 M/mm3 (4.00-5.60); RDW 18.7 % (11.9-15.9); WHITE BLOOD COUNT 7.3 K/mm3 (4.0-10.0)
[2020-09-13 08:36] LABS: CALCIUM 8.4 mg/dL (8.5-10.1)
[2020-09-13 08:37] LABS: BLOOD UREA NITROGEN 40.6 mg/dL (7-18); MAGNESIUM 2.2 mg/dL (1.8-2.4)
[2020-09-13 08:40] LABS: PHOSPHOROUS 2.4 mg/dL (2.5-4.9)
[2020-09-13] MEDS ORDERED: PT OWN MED DRAWER 7, Y5N ONE (09:02)
[2020-09-13] MEDS ORDERED: DEXTROSE 5%-WATER - 50 ML IVPB ONE ×3 (09:03→23:23)
[2020-09-13] MEDS ORDERED: PIPERACILLIN/TAZOBACTAM 3.375 GM VIAL IVPB ONE ×3 (09:03→23:23)
[2020-09-13] MEDS: VASOPRESSIN 40 UNITS in SODIUM CHLORIDE 98 ML IVPB SCH (09:16)
[2020-09-13] MEDS: MUPIROCIN 2% TOPICAL OINTMENT FOR DECOLONIZATION NS SCH ×2 (09:16→21:27)
[2020-09-13] MEDS: FAMOTIDINE 20 MG TABLET PO SCH (09:16)
[2020-09-13] MEDS: AZITHROMYCIN IVPB 500 MG/250 ML BAG IVPB SCH (09:17)
[2020-09-13] MEDS: APIXABAN 5 MG TABLET PO SCH (09:17)
[2020-09-13] MEDS ORDERED: HEPARIN NA (PORCINE) 5,000 UNITS/ML 1ML VIAL IVPUSH PRN ×2 (09:47)
[2020-09-13] MEDS ORDERED: POTASSIUM PHOSPHATE 15 MM in DEXTROSE 5%-WATER - 250 ML IVPB ONE (10:00)
[2020-09-13] MEDS: VANCOMYCIN HCL 1,250 MG in DEXTROSE 5%-WATER - 250 ML IVPB SCH (10:01)
[2020-09-13] MEDS: FAMOTIDINE 20 MG/50 ML IVPB 20 MG/50 ML MG IVPB SCH (10:10)
[2020-09-13] MEDS: LEVOTHYROXINE SODIUM 100 MCG VIAL IVPUSH SCH (10:47)
[2020-09-13] MEDS: HEPARIN INFUSION - 25,000 UNITS/500 ML INFUS.BAG IVPB SCH (10:52)
[2020-09-13] MEDS ORDERED: VANCOMYCIN 1,000 MG in DEXTROSE 5%-WATER - 250 ML IVPB ONE ×2 (11:19→11:30)
[2020-09-13] MEDS ORDERED: AMINO ACIDS 4.25%/D5W 1,000 ML IV SCH (15:45)
[2020-09-13] MEDS: CHLORHEXIDINE GLUCONATE 4% CLEANSER FOR DECOLONIZATION TP SCH (21:27)
[2020-09-13] MEDS: DIGOXIN 0.125 MG TABLET (FP) PO SCH (21:28)
[2020-09-14] MEDS: PIPERACILLIN/TAZOB 3.375 GM 3.375 GM in DEXTROSE 5%-WATER - 50 ML IVPB SCH ×2 (02:00→09:05)
[2020-09-14 07:19] LABS: EOS % 0.3 % (0-4.5); HEMATOCRIT 32.7 % (35.4-49); HEMOGLOBIN 10.8 GM/dL (11.7-16.9); LYMPH % 6.5 % (8-40); MCH 32.5 pg (25.7-33.7); MEAN CELL VOLUME 98.6 fl (80-96); MEAN PLT VOLUME 7.9 fl (7.5-11.1); MONO % 2.3 % (3.8-10.2); NEUT % 90.9 % (42.8-82.8); PLATELET COUNT 143 K/MM3 (134-434); RBC 3.31 M/mm3 (4.00-5.60); RDW 18.4 % (11.9-15.9); WHITE BLOOD COUNT 5.6 K/mm3 (4.0-10.0)
[2020-09-14 08:41] LABS: ALBUMIN 2.1 g/dl (3.4-5.0); BILIRUBIN,TOTAL 0.9 mg/dL (0.2-1); BLOOD UREA NITROGEN 33.6 mg/dL (7-18); CALCIUM 8.3 mg/dL (8.5-10.1); CREATININE 0.9 mg/dL (0.55-1.3); MAGNESIUM 2.2 mg/dL (1.8-2.4); PHOSPHOROUS 2.9 mg/dL (2.5-4.9); POTASSIUM 3.4 mmol/L (3.5-5.1); TOT PROT 6.4 g/dl (6.4-8.2)
[2020-09-14] MEDS ORDERED: PT OWN MED DRAWER 7, Y5N ONE ×2 (08:48→12:40)
[2020-09-14] MEDS ORDERED: DEXTROSE 5%-WATER - 50 ML IVPB ONE (08:49)
[2020-09-14] MEDS ORDERED: PIPERACILLIN/TAZOBACTAM 3.375 GM VIAL IVPB ONE (08:49)
[2020-09-14] MEDS: FAMOTIDINE 20 MG/50 ML IVPB 20 MG/50 ML MG IVPB SCH (08:59)
[2020-09-14] MEDS: HEPARIN INFUSION - 25,000 UNITS/500 ML INFUS.BAG IVPB SCH (09:00)
[2020-09-14] MEDS: LEVOTHYROXINE SODIUM 100 MCG VIAL IVPUSH SCH (09:00)
[2020-09-14] MEDS: MUPIROCIN 2% TOPICAL OINTMENT FOR DECOLONIZATION NS SCH (09:05)
[2020-09-14] MEDS ORDERED: AZITHROMYCIN IVPB 500 MG/250 ML BAG IVPB SCH (10:00)
[2020-09-14] MEDS: VANCOMYCIN HCL 1,250 MG in DEXTROSE 5%-WATER - 250 ML IVPB SCH (10:10)
[2020-09-14] MEDS: ERTAPENEM SODIUM 1 GM in SODIUM CHLORIDE 50 ML IVPB SCH (13:32)
[2020-09-14] MEDS: CEFAZOLIN 2 GM/D5W 2 GM/50 ML ML IVPB SCH ×2 (13:32→17:38)
[2020-09-14] MEDS: AMINO ACIDS 4.25%/D5W 1,000 ML IV SCH (15:25)
[2020-09-14] MEDS: MULTIVIT INJ. ADULT COMBO WITH VIT K 1 COMBO 10 ML VIAL IV SCH (15:26)
[2020-09-14] MEDS: ALBUTEROL SO4 0.083% IH SOL 2.5 MG/3 ML VIAL.NEB. NEB PRN ×2 (17:00→20:30)
[2020-09-14] MEDS: ACETYLCYSTEINE 20% 200MG/ML 4 ML VIAL *FOR ORAL / INH USE ONLY NEB SCH ×2 (17:00→20:30)
[2020-09-14] MEDS: DIGOXIN 0.125 MG TABLET (FP) PO SCH (21:22)
[2020-09-14] MEDS: ENOXAPARIN NA (PORCINE) 80 MG/0.8 ML DISP.SYRIN SQ SCH (21:22)
[2020-09-14] MEDS: CHLORHEXIDINE GLUCONATE 4% CLEANSER FOR DECOLONIZATION TP SCH (21:22)
[2020-09-14] MEDS ORDERED: SODIUM CHLORIDE 0.9% 500 ML INFUS.BAG IV ONE (21:27)
[2020-09-15] MEDS: CEFAZOLIN 2 GM/D5W 2 GM/50 ML ML IVPB SCH ×3 (02:00→17:30)
[2020-09-15] MEDS: ALBUTEROL SO4 0.083% IH SOL 2.5 MG/3 ML VIAL.NEB. NEB PRN (04:28)
[2020-09-15] MEDS: ACETYLCYSTEINE 20% 200MG/ML 4 ML VIAL *FOR ORAL / INH USE ONLY NEB SCH ×5 (04:28→20:30)
[2020-09-15 07:13] LABS: POTASSIUM 3.4 mmol/L (3.5-5.1)
[2020-09-15 07:17] LABS: ALBUMIN 1.9 g/dl (3.4-5.0); BLOOD UREA NITROGEN 30.2 mg/dL (7-18); CALCIUM 7.8 mg/dL (8.5-10.1); MAGNESIUM 2.2 mg/dL (1.8-2.4)
[2020-09-15 07:20] LABS: CREATININE 0.9 mg/dL (0.55-1.3); PHOSPHOROUS 2.8 mg/dL (2.5-4.9)
[2020-09-15 07:22] LABS: BILIRUBIN,TOTAL 0.9 mg/dL (0.2-1); TOT PROT 6.1 g/dl (6.4-8.2)
[2020-09-15 07:29] LABS: BASO % 0.1 % (0-2.0); EOS % 0.5 % (0-4.5); HEMATOCRIT 30.4 % (35.4-49); HEMOGLOBIN 10.1 GM/dL (11.7-16.9); LYMPH % 10.1 % (8-40); MCH 32.7 pg (25.7-33.7); MCHC 33.2 g/dl (32.0-35.9); MEAN CELL VOLUME 98.3 fl (80-96); MEAN PLT VOLUME 8.2 fl (7.5-11.1); MONO % 1.9 % (3.8-10.2); NEUT % 87.4 % (42.8-82.8); PLATELET COUNT 144 K/MM3 (134-434); RBC 3.09 M/mm3 (4.00-5.60); RDW 18.6 % (11.9-15.9); WHITE BLOOD COUNT 5.1 K/mm3 (4.0-10.0)
[2020-09-15] MEDS ORDERED: PT OWN MED DRAWER 7, Y5N ONE (09:29)
[2020-09-15] MEDS: ENOXAPARIN NA (PORCINE) 80 MG/0.8 ML DISP.SYRIN SQ SCH ×2 (10:04→21:22)
[2020-09-15] MEDS: FAMOTIDINE 20 MG/50 ML IVPB 20 MG/50 ML MG IVPB SCH (10:04)
[2020-09-15] MEDS: ERTAPENEM SODIUM 1 GM in SODIUM CHLORIDE 50 ML IVPB SCH (10:55)
[2020-09-15] MEDS: LEVOTHYROXINE SODIUM 100 MCG VIAL IVPUSH SCH (10:55)
[2020-09-15] MEDS: ALBUTEROL SO4 0.083% IH SOL 2.5 MG/3 ML VIAL.NEB. NEB SCH ×3 (12:00→20:30)
[2020-09-15] MEDS: MULTIVIT INJ. ADULT COMBO WITH VIT K 1 COMBO 10 ML VIAL IV SCH (15:34)
[2020-09-15] MEDS: AMINO ACIDS 4.25%/D5W 1,000 ML IV SCH (15:34)
[2020-09-15] MEDS: CHLORHEXIDINE GLUCONATE 4% CLEANSER FOR DECOLONIZATION TP SCH (21:21)
[2020-09-15] MEDS: DIGOXIN 0.125 MG TABLET (FP) PO SCH (21:22)
[2020-09-16] MEDS: CEFAZOLIN 2 GM/D5W 2 GM/50 ML ML IVPB SCH ×3 (02:13→17:06)
[2020-09-16 07:31] LABS: POTASSIUM 3.3 mmol/L (3.5-5.1)
[2020-09-16 07:35] LABS: BASO % 0.1 % (0-2.0); EOS % 0.5 % (0-4.5); HEMATOCRIT 31.1 % (35.4-49); HEMOGLOBIN 10.2 GM/dL (11.7-16.9); MCH 32.2 pg (25.7-33.7); MCHC 32.8 g/dl (32.0-35.9); MEAN CELL VOLUME 98.4 fl (80-96); MEAN PLT VOLUME 8.2 fl (7.5-11.1); MONO % 1.3 % (3.8-10.2); NEUT % 92.1 % (42.8-82.8); PLATELET COUNT 168 K/MM3 (134-434); RBC 3.16 M/mm3 (4.00-5.60); RDW 18.4 % (11.9-15.9)
[2020-09-16 07:39] LABS: CALCIUM 7.9 mg/dL (8.5-10.1)
[2020-09-16 07:41] LABS: BLOOD UREA NITROGEN 30.5 mg/dL (7-18); MAGNESIUM 2.2 mg/dL (1.8-2.4)
[2020-09-16 07:43] LABS: CREATININE 0.8 mg/dL (0.55-1.3)
[2020-09-16 07:44] LABS: BILIRUBIN,TOTAL 0.7 mg/dL (0.2-1)
[2020-09-16 07:46] LABS: TOT PROT 6.6 g/dl (6.4-8.2)
[2020-09-16] MEDS: ACETYLCYSTEINE 20% 200MG/ML 4 ML VIAL *FOR ORAL / INH USE ONLY NEB SCH ×4 (08:25→20:30)
[2020-09-16] MEDS: ALBUTEROL SO4 0.083% IH SOL 2.5 MG/3 ML VIAL.NEB. NEB SCH ×4 (08:25→20:30)
[2020-09-16] MEDS ORDERED: NAPH,MB-DB/K PH,MBDB POWDER PACKET PO ONE (08:51)
[2020-09-16] MEDS: ERTAPENEM SODIUM 1 GM in SODIUM CHLORIDE 50 ML IVPB SCH (09:28)
[2020-09-16] MEDS ORDERED: PT OWN MED DRAWER 7, Y5N ONE (09:32)
[2020-09-16] MEDS: FAMOTIDINE 20 MG/50 ML IVPB 20 MG/50 ML MG IVPB SCH (09:36)
[2020-09-16] MEDS: ENOXAPARIN NA (PORCINE) 80 MG/0.8 ML DISP.SYRIN SQ SCH ×2 (09:36→21:18)
[2020-09-16] MEDS: LEVOTHYROXINE SODIUM 100 MCG VIAL IVPUSH SCH (09:47)
[2020-09-16 09:57] LABS: ANISOCYTOSIS 1+; MACROCYTOSIS 0; PLATELET ESTIMATE NORMAL
[2020-09-16] MEDS ORDERED: POTASSIUM PHOSPHATE 30 MM in DEXTROSE 5%-WATER - 250 ML IVPB ONE (10:00)
[2020-09-16] MEDS: AMINO ACIDS 4.25%/D5W 1,000 ML IV SCH (13:06)
[2020-09-16] MEDS: MULTIVIT INJ. ADULT COMBO WITH VIT K 1 COMBO 10 ML VIAL IV SCH (13:06)
[2020-09-16] MEDS: DIGOXIN 0.125 MG TABLET (FP) PO SCH (21:18)
[2020-09-16] MEDS: CHLORHEXIDINE GLUCONATE 4% CLEANSER FOR DECOLONIZATION TP SCH (21:18)
[2020-09-17] MEDS: CEFAZOLIN 2 GM/D5W 2 GM/50 ML ML IVPB SCH ×3 (02:00→17:36)
[2020-09-17 08:22] LABS: POTASSIUM 3.5 mmol/L (3.5-5.1)
[2020-09-17 08:31] LABS: BASO % 0.1 % (0-2.0); CALCIUM 8.1 mg/dL (8.5-10.1); EOS % 0.8 % (0-4.5); HEMATOCRIT 28.9 % (35.4-49); HEMOGLOBIN 9.5 GM/dL (11.7-16.9); LYMPH % 7.5 % (8-40); MCH 32.3 pg (25.7-33.7); MCHC 32.8 g/dl (32.0-35.9); MEAN CELL VOLUME 98.7 fl (80-96); MONO % 1.7 % (3.8-10.2); NEUT % 89.9 % (42.8-82.8); PLATELET COUNT 178 K/MM3 (134-434); RBC 2.93 M/mm3 (4.00-5.60); RDW 18.9 % (11.9-15.9)
[2020-09-17 08:32] LABS: ALBUMIN 1.9 g/dl (3.4-5.0); BLOOD UREA NITROGEN 27.2 mg/dL (7-18); MAGNESIUM 2.4 mg/dL (1.8-2.4)
[2020-09-17 08:35] LABS: CREATININE 0.7 mg/dL (0.55-1.3); PHOSPHOROUS 2.5 mg/dL (2.5-4.9)
[2020-09-17 08:37] LABS: BILIRUBIN,TOTAL 0.6 mg/dL (0.2-1); TOT PROT 6.4 g/dl (6.4-8.2)
[2020-09-17] MEDS: ALBUTEROL SO4 0.083% IH SOL 2.5 MG/3 ML VIAL.NEB. NEB SCH ×4 (08:50→21:00)
[2020-09-17] MEDS: ACETYLCYSTEINE 20% 200MG/ML 4 ML VIAL *FOR ORAL / INH USE ONLY NEB SCH ×4 (08:50→21:00)
[2020-09-17] MEDS ORDERED: PT OWN MED DRAWER 7, Y5N ONE ×2 (09:16→12:20)
[2020-09-17] MEDS: ENOXAPARIN NA (PORCINE) 80 MG/0.8 ML DISP.SYRIN SQ SCH ×2 (09:23→21:09)
[2020-09-17] MEDS: LEVOTHYROXINE SODIUM 100 MCG VIAL IVPUSH SCH (09:25)
[2020-09-17] MEDS: FAMOTIDINE 20 MG/50 ML IVPB 20 MG/50 ML MG IVPB SCH (09:28)
[2020-09-17] MEDS ORDERED: ALBUTEROL SO4 0.083% IH SOL 2.5 MG/3 ML VIAL.NEB. NEB ONE (12:06)
[2020-09-17] MEDS: ERTAPENEM SODIUM 1 GM in SODIUM CHLORIDE 50 ML IVPB SCH (12:23)
[2020-09-17] MEDS: AMINO ACIDS 4.25%/D5W 1,000 ML IV SCH (15:35)
[2020-09-17] MEDS: MULTIVIT INJ. ADULT COMBO WITH VIT K 1 COMBO 10 ML VIAL IV SCH (15:35)
[2020-09-17] MEDS ORDERED: [UNRECOGNIZED DRUG - OTHER] IVPB SCH (16:00)
[2020-09-17] MEDS ORDERED: POTASSIUM PHOSPHATE IVPB SCH (16:00)
[2020-09-17] MEDS ORDERED: SODIUM CHLORIDE IVPB SCH (16:00)
[2020-09-17] MEDS: CHLORHEXIDINE GLUCONATE 4% CLEANSER FOR DECOLONIZATION TP SCH (21:09)
[2020-09-17] MEDS: DIGOXIN 0.125 MG TABLET (FP) PO SCH (21:09)
[2020-09-17 23:31] LABS: INR 1.2 (0.83-1.09); PROTHROMBIN TIME (PATIENT) 14.4 SEC (9.7-13.0)
[2020-09-18] MEDS: CEFAZOLIN 2 GM/D5W 2 GM/50 ML ML IVPB SCH ×2 (01:02→09:34)
[2020-09-18 07:30] LABS: BASO % 0.4 % (0-2.0); EOS % 0.6 % (0-4.5); HEMATOCRIT 29.9 % (35.4-49); HEMOGLOBIN 9.5 GM/dL (11.7-16.9); LYMPH % 9.2 % (8-40); MCH 31.8 pg (25.7-33.7); MCHC 31.6 g/dl (32.0-35.9); MEAN CELL VOLUME 100.5 fl (80-96); MEAN PLT VOLUME 8.1 fl (7.5-11.1); MONO % 1.7 % (3.8-10.2); NEUT % 88.1 % (42.8-82.8); PLATELET COUNT 206 K/MM3 (134-434); RBC 2.97 M/mm3 (4.00-5.60); RDW 18.7 % (11.9-15.9); WHITE BLOOD COUNT 5.7 K/mm3 (4.0-10.0)
[2020-09-18] MEDS: ACETYLCYSTEINE 20% 200MG/ML 4 ML VIAL *FOR ORAL / INH USE ONLY NEB SCH ×2 (07:30→12:29)
[2020-09-18] MEDS: ALBUTEROL SO4 0.083% IH SOL 2.5 MG/3 ML VIAL.NEB. NEB SCH ×2 (07:30→12:30)
[2020-09-18 07:40] LABS: POTASSIUM 3.9 mmol/L (3.5-5.1)
[2020-09-18 07:42] LABS: CALCIUM 8.1 mg/dL (8.5-10.1)
[2020-09-18 07:44] LABS: BLOOD UREA NITROGEN 31.3 mg/dL (7-18); MAGNESIUM 2.6 mg/dL (1.8-2.4)
[2020-09-18 07:46] LABS: CREATININE 0.7 mg/dL (0.55-1.3); PHOSPHOROUS 2.9 mg/dL (2.5-4.9)
[2020-09-18 07:47] LABS: BILIRUBIN,TOTAL 0.5 mg/dL (0.2-1); TOT PROT 6.6 g/dl (6.4-8.2)
[2020-09-18] MEDS ORDERED: PT OWN MED DRAWER 7, Y5N ONE (09:08)
[2020-09-18] MEDS: LEVOTHYROXINE SODIUM 100 MCG VIAL IVPUSH SCH (09:33)
[2020-09-18] MEDS: ERTAPENEM SODIUM 1 GM in SODIUM CHLORIDE 50 ML IVPB SCH (09:33)
[2020-09-18] MEDS: FAMOTIDINE 20 MG/50 ML IVPB 20 MG/50 ML MG IVPB SCH (09:33)
[2020-09-18] MEDS: ENOXAPARIN NA (PORCINE) 80 MG/0.8 ML DISP.SYRIN SQ SCH (09:33)
[2020-09-18 11:16] VITALS: PULSE 75
[2020-09-18 12:14] VITALS: BP 133/50; TEMP 98
[2020-09-18 13:20] VITALS: BMI 23.2
[2020-09-18] MEDS ORDERED: EPINEPHrine 1:10,000 (P-F SYR) 1 MG/10 ML DISP.SYRIN ONE (13:21)
== END 2020-09-18 13:21 | disposition expired | DRG 871 ==
LOC: FER 06:30 → JICU 13:28
PROVIDERS: ADMIT Internal Medicine; ATTEND Internal Medicine
PROC: 05HM33Z Insertion of Infusion Device into Right Internal Jugular Vein, Percutaneous Approach (ICD-10-PCS; principal; 2020-09-10)
PROC: B543ZZA Ultrasonography of Right Jugular Veins, Guidance (ICD-10-PCS; 2020-09-10)
PROC: 5A09557 Assistance with Respiratory Ventilation, Greater than 96 Consecutive Hours, Continuous Positive Airway Pressure (ICD-10-PCS; 2020-09-14)
PROC: 05HN33Z Insertion of Infusion Device into Left Internal Jugular Vein, Percutaneous Approach (ICD-10-PCS; 2020-09-17)
PROC: 3E0336Z Introduction of Nutritional Substance into Peripheral Vein, Percutaneous Approach (ICD-10-PCS; 2020-09-17)
DX: A41.01 Sepsis due to Methicillin susceptible Staphylococcus aureus (principal); I50.23 Acute on chronic systolic (congestive) heart failure; J96.01 Acute respiratory failure with hypoxia; J18.9 Pneumonia, unspecified organism; E87.2 Acidosis; N39.0 Urinary tract infection, site not specified; I24.8 Other forms of acute ischemic heart disease; J98.11 Atelectasis; R65.20 Severe sepsis without septic shock; I48.91 Unspecified atrial fibrillation; E78.5 Hyperlipidemia, unspecified; E03.9 Hypothyroidism, unspecified; I25.10 Atherosclerotic heart disease of native coronary artery without angina pectoris; N40.0 Benign prostatic hyperplasia without lower urinary tract symptoms; I07.1 Rheumatic tricuspid insufficiency; I95.9 Hypotension, unspecified; K21.9 Gastro-esophageal reflux disease without esophagitis; D72.829 Elevated white blood cell count, unspecified; I27.20 Pulmonary hypertension, unspecified; F41.9 Anxiety disorder, unspecified; I11.0 Hypertensive heart disease with heart failure; E87.6 Hypokalemia; I46.9 Cardiac arrest, cause unspecified; B37.9 Candidiasis, unspecified; K80.80 Other cholelithiasis without obstruction; B96.4 Proteus (mirabilis) (morganii) as the cause of diseases classified elsewhere; Z86.73 Personal history of transient ischemic attack (TIA), and cerebral infarction without residual deficits; Z87.11 Personal history of peptic ulcer disease; Z95.0 Presence of cardiac pacemaker; Z96.643 Presence of artificial hip joint, bilateral
CPT/HCPCS: 36415; 36600; 70450-TC; 71045-TC-FY; 74018-TC-FY; 76705-TC; 80048; 80053; 80074; 80162; 81003; 81015; 82550; 82565; 82728; 82803; 83605; 83615; 83735; 84100; 84156; 84443; 84484; 84540; 85025; 85027; 85379; 85384; 85610; 85730; 86140; 87040; 87086; 87186; 87899; 93005; 93010; 93306-TC; 94640; 94660; 97162-GP; 99285-25; C9803; G0480; J0131; J1100; J1644; U0003